=== PATIENT | female | born 1980 | race Caucasian/White ===

== ENCOUNTER 2017-09-12 11:20 | Day surgery (SDC) | payer OTHER, SELFPAY ==
[2017-09-12] VITALS (9 sets, daily range): BP systolic 102–122; BP diastolic 50–89; PULSE 60–93; RESP 16–18; TEMP 36.1–37.2; O2SAT 95–100; BMI 28.3
--- NOTE | 2017-09-12 | POC_PTH ---
PATIENT: YOLANDE GOMES LOC: [facility] – [place] U#:[id number] AGE/SX: 36/F ROOM: RE09/12/[address]: Dr. Arnold Okeefe MD : 1980 BED: DIS: 09/12/2017 SPEC #: [id number] RECD: 09/12/17 14:41 STATUS: ANNALEE REQ #: [id number] LINDA: 09/12/17 00:[address]: Arnold Okeefe DEPT: SURGICAL PATHOLOGY RECD BY: Lai Levy ENTERED: 09/12/17 14:41 SP TYPE: PROD CONC OTHR DR: Kimberly Kumari PA-C Tissues: Product of conception, NOS Procedures: Surgery Specimen Level IV HEADER OPERATION: Dilation and curettage, suction PRE-OP DIAGNOSIS: Inevitable miscarriage TISSUE SUBMITTED: Products of conception MICROSCOPIC DIAGNOSIS Products of conception: [place]id[place], gestational endometrium and immature chorionic villi (products of conception). SJ:nayan 09/15/17 MICROSCOPIC DESCRIPTION Slides are reviewed. GROSS DESCRIPTION Received in fixative is one container labeled with the patient's name and designated products of conception. The specimen consists of multiple pieces of tee-pink soft tissue that in aggregate measure 4.5 x 5 x 2 cm. tissue is not identified. [employer] And Shoe Laborer tissue is submitted in two cassettes. / ADRIANA:nayan 09/12/17 TC:5 CPT: 77292
[2017-09-12 12:27] LABS: Hematocrit 41.4 % (37-47); Hemoglobin 14.3 g/dl (12.0-15.0); Mean Corp Hgb Conc 34.5 g/gl (32-36); Mean Corpuscular Hgb 31.2 pg (27.0-32.0); Mean Corpuscular Volume 90.2 fL (81-99); Mean Platelet Vol. 9.7 fl (6.2-12.0); Platelet Count 264 K/mm3 (150-450); RBC Distribution Width CV 12.5 % (11.6-14.6); RBC Distribution Width SD 41.1 fl (35.1-43.9); Red Blood Count 4.59 M/mm3 (4.2-5.4); Scan Indicated on CBC? Y/N NO
--- NOTE | 2017-09-12 12:53 | PCM.OP.BLANK ---
Operative Report Date of Procedure: 09/12/17 Pre/Post-op: Incomplete Miscarriage Surgeon: Arnold Okeefe MD, FACOG Anesthesia: Laquita Woodall CRNA Type of anesthesia: MAC Procedure: Suction Dilation and Evacuation Findings: 10-12 cm EM cavity with POC Indication: 36 Year patient with incomplete AB at 11 weeks gestation with an 8 week IUP without FHTs. Pt has been counseled re RBAs and all questions answered. Procedure: Pt taken to the OR where she was given IV sedation. The patient was prepped and draped in the usual sterile fashion. Anterior cervix grasped and cervix dilated to 10mm. An 9 mm suction curette was inserted into the cervix and all contents removed. Uterus was gently curetted and remaining tissue removed. Pt tolerated the procedure well and was taken to the recovery room in satisfactory condition. Sponge, instruments and needle counts were all correct. There were no apparent complications of the surgery. To Pathology: POC EBL Minimal.
[2017-09-12] MEDS: Lubricating Jelly 60 GM Tube 30 GM TOPICAL (12:56)
--- NOTE | 2017-09-12 12:56 | DCINST_ITS ---
Discharge Diet: No Restrictions Discharge Activity: Return to Normal Activity, May Shower, May Take a Tub Bath May resume sexual activity in: 1-2 weeks Call your doctor if you observe: Fever of 101 or Higher, Inability to urinate, Inability to have a bowel movement, Using more than one pad per hour Allergies/Adverse Reactions: Allergies Penicillins Allergy (Verified 07/22/16 12:43) Anaphylaxis Medications to take at Discharge Metformin(XR) [Glucophage Xr] 1,000 mg PO BID 07/22/16 Primary Care Physician: Kimberly Kumari PA-C [Primary Care Provider] - Test Results: Test results from this visit will be discussed in further detail at your follow- up appointment, if applicable. Please Follow Up With: Arnold Okeefe MD When: 4-5 weeks
== END 2017-09-12 15:42 | disposition home or self-care (01) ==
LOC: SDC 11:26 → AC 11:34
PROVIDERS: Family Provider Family Medicine; PCP Family Medicine; Visit Provider Obstetrics & Gynecology
PROC: (CPT 59812; principal; 2017-09-12 11:00)
DX: O03.4 Incomplete spontaneous abortion without complication (principal); Z79.84 Long term (current) use of oral hypoglycemic drugs
CPT/HCPCS: 01965; 59812; 85027; 86850; 86900; 88305; J7120

== ENCOUNTER → 2019-05-07 | Outpatient (CLI) | payer BC, SELFPAY ==
[2017-09-12 12:08] VITALS: BMI 28.3
[2019-05-07 13:19] LABS: Internal QC Validated? YES +Cl - CLEAR BKGD; Pregnancy, Serum, hCG Quali. NEGATIVE Negative
== END | disposition home or self-care (01) ==
LOC: WOBLAB 11:23
PROVIDERS: PCP Family Medicine; Visit Provider Obstetrics & Gynecology
DX: N97.0 Female infertility associated with anovulation (principal)
CPT/HCPCS: 36415; 84703

== ENCOUNTER 2019-07-20 11:43 | Outpatient (RCR) | payer BC, SELFPAY ==
[2017-09-12 12:08] VITALS: BMI 28.3
[2019-07-20 13:29] LABS: Progesterone Level 0.35 ng/mL (See Comment)
[2019-07-20 13:32] LABS: Prolactin 4.8 ng/mL
== END 2019-07-20 18:00 ==
LOC: LAB 11:43
PROVIDERS: PCP Family Medicine; Referring Provider Obstetrics & Gynecology; Visit Provider Obstetrics & Gynecology
DX: N94.6 Dysmenorrhea, unspecified (principal); N92.6 Irregular menstruation, unspecified; E28.2 Polycystic ovarian syndrome
CPT/HCPCS: 36415; 84144; 84146

== ENCOUNTER → 2019-09-03 | Outpatient (CLI) | payer BC, SELFPAY ==
[2017-09-12 12:08] VITALS: BMI 28.3
[2019-09-09 01:53] LABS: HPV Reflexed? NOT INDICATED
== END | disposition home or self-care (01) ==
LOC: LABSPEC 10:00
PROVIDERS: PCP Family Medicine; Visit Provider Obstetrics & Gynecology
DX: Z12.4 Encounter for screening for malignant neoplasm of cervix (principal)
CPT/HCPCS: 88175; G0145

== ENCOUNTER → 2019-09-06 | Outpatient (CLI) | payer BC, SELFPAY ==
[2017-09-12 12:08] VITALS: BMI 28.3
[2019-09-06 13:35] LABS: Progesterone Level 0.65 ng/mL (See Comment)
== END | disposition home or self-care (01) ==
PROVIDERS: PCP Family Medicine; Referring Provider Obstetrics & Gynecology; Visit Provider Obstetrics & Gynecology
DX: N97.0 Female infertility associated with anovulation (principal)
CPT/HCPCS: 36415; 84144

== ENCOUNTER → 2020-06-07 09:01 | Outpatient (CLI) | payer OTHER, SELFPAY ==
[2017-09-12 12:08] VITALS: BMI 28.3
[2020-06-07 10:32] LABS: Hemoglobin A1c 4.9 % (3.8-5.6)
[2020-06-07 10:34] LABS: ALB/GLOB Ratio 1.1 RATIO (0.9-2.4); AST(SGOT) 15 U/L (15-37); Alanine Aminotransfer ALT/SGPT 20 U/L (13-56); Albumin, Serum 3.9 g/dL (3.2-5.0); Alkaline Phosphatase 72 U/L (45-117); Anion Gap 6 (5-15); BUN 12 mg/dL (7-18); BUN/Creat Ratio 15.6 RATIO (10-20); Calcium,Total 8.8 mg/dL (8.5-10.1); Chloride 105 mmol/L (98-107); Cholesterol 202 mg/dL (200); Creatinine, Serum 0.77 mg/dL (0.55-1.02); EST Glomerular Filtration Rate 88 mL/min (>60); Est Glom Filt Rate - Afr Amer 106 mL/min (>60); Globulin 3.5 g/dL (2.2-4.2); Glucose 95 mg/dL (74-106); High Density Lipoprotein 55 mg/dL; Potassium 4.2 mmol/L (3.5-5.1); Protein, Total 7.4 g/dL (6.4-8.2); Sodium Level 137 mmol/L (136-145); Triglycerides 145 mg/dL; Very Low Density Lipoprotein 29 mg/dL (5-40)
== END ==
PROVIDERS: PCP Family Medicine; Referring Provider Family Medicine; Visit Provider Family Medicine
DX: E28.2 Polycystic ovarian syndrome (principal); Z13.220 Encounter for screening for lipoid disorders
CPT/HCPCS: 36415; 80053; 80061; 83036

== ENCOUNTER → 2020-07-20 06:55 | Outpatient (CLI) | payer OTHER, SELFPAY ==
--- NOTE | 2020-07-20 06:57 | BI_ITS ---
MAMMOGRAPHY - BILATERAL SCREENING REASON FOR EXAM: Female, 39 years old. Routine annual screening examination. PERTINENT HISTORY: Non-contributory. TECHNIQUE: Digital bilateral breast constantin (3D mammographic acquisition) in the CC and MLO projections. 2-D mediolateral oblique (MLO) and craniocaudad (CC) views of both breasts were obtained. CAD: Full Field Digital Mammography with Computer Added Detection was performed. COMPARISON: None. Baseline examination. FINDINGS: Breast Composition: There are scattered areas of fibroglandular density. There are no dominant masses or suspicious calcifications. Small benign-appearing axillary lymph nodes. No other significant abnormalities are identified. BI/SCRN MAMM (CAD)W/CONSTANTIN BILAT IMPRESSION: Negative screening mammogram. Yearly followup mammogram recommended. (A) ASSESSMENT CATEGORY: BIRADS Category 2: Benign. A letter regarding these results will be sent to the patient by the facility within 30 days. Approximately 10% of breast cancers are not detected by mammography. A normal mammogram should not delay biopsy of a clinically suspicious abnormality. [id number] Electronically Signed: Lazaro Romero MD at 8:25 EDT , Service support ,
== END ==
PROVIDERS: PCP Family Medicine; Referring Provider Family Medicine; Visit Provider Family Medicine
DX: Z12.31 Encounter for screening mammogram for malignant neoplasm of breast (principal)
CPT/HCPCS: 77063; 77067

== ENCOUNTER → 2020-11-02 14:10 | Outpatient (CLI) | payer OTHER, SELFPAY ==
[2020-11-02 17:01] LABS: hCG Titer Quant., Serum 15315 mIU/mL (1-3)
== END ==
PROVIDERS: PCP Family Medicine; Visit Provider Obstetrics & Gynecology
DX: Z32.01 Encounter for pregnancy test, result positive (principal); Z87.59 Personal history of other complications of pregnancy, childbirth and the puerperium
CPT/HCPCS: 36415; 84702

== ENCOUNTER → 2020-11-04 11:38 | Outpatient (CLI) | payer OTHER, SELFPAY ==
[2020-11-04 12:36] LABS: hCG Titer Quant., Serum 21837 mIU/mL (1-3)
== END ==
PROVIDERS: PCP Family Medicine; Referring Provider Obstetrics & Gynecology; Visit Provider Obstetrics & Gynecology
DX: Z32.01 Encounter for pregnancy test, result positive (principal); Z87.59 Personal history of other complications of pregnancy, childbirth and the puerperium
CPT/HCPCS: 36415; 84702

== ENCOUNTER 2020-11-05 01:37 | Emergency (ER) | payer OTHER, SELFPAY ==
[2020-11-05 01:38] VITALS: BP 112/70; PULSE 92; RESP 16; TEMP 36.7; O2SAT 99; BMI 31.1
--- NOTE | 2020-11-05 02:17 | US_ITS ---
STUDY: FIRST TRIMESTER OBSTETRICAL ULTRASOUND REASON FOR EXAM: Female, 39 years old vagianl bleeding with LLQ pain LMP: 09/14/2020 TECHNIQUE: Transvaginal TECHNICAL QUALITY: Limited. Examination limited by bowel gas. PRIOR ULTRASOUND: None. FINDINGS: There is visualization of a single gestational sac in a normal intrauterine position. The mean sac diameter (MSD) measures 1.3 cm, indicating an estimated gestational age (EGA) of 6 weeks, 0 days. The gestational sac shape is within normal limits. There is no demonstrated yolk sac. The placenta is non-visualized. There is no demonstrated embryo ( pole). The estimated gestation age (EGA) by LMP is 7 weeks, 3 days. The estimated date of delivery (THERESE) by LMP is 06/21/2021. The estimated gestation age (EGA) by US is 6 weeks, 0 days. The estimated date of delivery (THERESE) by US is 07/01/2021. The uterus measures 9.7 x 6.9 x 4.6 cm. There is no demonstrated uterine fibroid. The cervix is closed. The right ovary measures 5.7 x 3.9 x 3.6 cm. Complex right ovarian cyst measuring 3 x 3.7 x 2.4 cm. There is no visualized right adnexal mass or complex lesion. The left ovary measures 3 x 2.5 x 2 cm. There is no left ovarian cyst. There is no visualized left adnexal mass or complex lesion. There is minimal fluid in the cul de sac. US/Transvaginal w/Preg US IMPRESSION: Intrauterine gestational sac is noted however, no evidence of pole. Unusual given size of gestational sac. Suspicious for a blighted ovum. Comment right ovarian cyst which is likely including corpus luteal cyst/hemorrhagic cyst. Recommend correlation with quantitative beta hCG and consider follow-up imaging as clinically indicated. Electronically Signed: Ricci Sigala DO at 3:53 EDT Tel , Service support ,
[2020-11-05 02:44] LABS: Absolute Lymphocyte Count 2.22 X10^3/uL (0.83-4.51); Absolute Neutrophil Count 4.3 X10^3/uL (2.0-7.7); Basophil# 0.04 X10^3/uL; Basophil% 0.5 % (0-1); Eosinophil# 0.23 X10^3/uL; Eosinophils% 3.2 % (0-5); Hematocrit 40.8 % (37-47); Hemoglobin 13.2 g/dL (12.0-15.0); Lymphocyte # 2.22 X10^3/ul (0.83-4.51); Lymphocyte % 30.5 % (19-41); Mean Corp Hgb Conc 32.4 g/dL (32-36); Mean Corpuscular Hgb 30.6 pg (27.0-32.0); Mean Corpuscular Volume 94.4 fL (81-99); Mean Platelet Vol. 9.9 fl (6.2-12.0); Monocyte# 0.46 X10^3/uL; Monocyte% 6.3 % (0-10); NRBC Flagged by Analyzer 0 % (0-5); Neutrophil # 4.31 X10^3/uL (2.7-7.7); Neutrophil % 59.1 % (47-70); Platelet Count 278 K/mm3 (150-450); RBC Distribution Width CV 12.4 % (11.6-14.6); RBC Distribution Width SD 43.3 fl (35.1-43.9); Red Blood Count 4.32 M/mm3 (4.2-5.4); White Blood Count 7.3 K/mm3 (4.4-11.0)
[2020-11-05 03:09] LABS: hCG Titer Quant., Serum 19970 mIU/mL (1-3)
[2020-11-05 04:26] VITALS: BP 106/74; RESP 16
--- NOTE | 2020-11-05 04:41 | ED.VIS.FEGU ---
HPI HPI - Female History of Present Illness Chief Complaint: Vag Bld, Preg Narrative Narrative: Patient is a 39-year-old female with 1 spontaneous miscarriage. She states she believes she is approximately 7 to 8 weeks based on her last menstrual cycle. She states she was recently diagnosed with a urinary tract infection is currently on Bactrim. She reports that she noticed some vaginal spotting yesterday but not think much of it. She states today after using the restroom she had increased pain in the left lower quadrant with passage of clots. With concern for miscarriage she presents to the ER for evaluation. [facility] Medical History Anxiety Depression History of miscarriage PCOS (polycystic ovarian syndrome) Home Medications fluoxetine 20 mg tablet 40 mg PO DAILY 04/02/20 [History Last Taken Unknown] vit 95-[id number]-[id number]-dha [ + DHA] 1 pkg PO DAILY 11/05/20 [History Last Taken Unknown] sulfamethoxazole-trimethoprim 1 tab PO BID 11/05/20 [History Last Taken Unknown] Allergy/AdvReac Type Severity Reaction Status Date / Time Penicillins Allergy Anaphylaxis Verified 11/05/20 01:38 Social History (Updated 04/02/20 @ 10:00 by Nedra CERVANTES, PA) Smoking Status: Never smoker ROS ROS ED Constitutional Constitutional ED: Denies chills or fever(s) ENT ENT ED: Denies sore throat Cardiovascular Cardiovascular: Denies chest pain Respiratory/Chest Respiratory/Chest: Denies cough or dyspnea Gastrointestinal Gastrointestinal: Reports abdominal pain; Denies diarrhea, nausea or vomiting Genitourinary Genitourinary ED: Reports other Details: Positive vaginal bleeding ; Denies dysuria Musculoskeletal Musculoskeletal: Denies myalgias Integumentary Denies rash Neurologic Neurologic: Denies headache(s) Hematologic/Lymphatic Hematologic/Lymphatic: Denies easy bleeding or easy bruising EXAM Physical Exam Const Vital Signs: 11/05/20 01:38 11/05/20 04:26 Temperature 98.1 F Temperature Source Oral Pulse Rate 92 Respiratory Rate 16 16 Blood Pressure 112/70 106/74 Blood Pressure Mean 84 84 Pulse Ox 99 Oxygen Delivery Method Room Air Positive well nourished and well developed General Appearance ED: well developed HEENT Negative for trauma Eyes PERRL and EOMs intact bilaterally Neck supple Resp normal respiratory effort and clear to auscultation bilaterally Cardio regular rate and regular rhythm GI normal to inspection, nondistended, normoactive bowel sounds, soft to palpation and non-distended GI Narrative: Patient does have pain on palpation in the left lower quadrant without rigidity or pulsatile mass Auscultation: normoactive bowel sounds Palpation: soft no CVA tenderness Extremity normal to inspection Neuro oriented x3 and CN's II-XII intact bilaterally Sensorium / Orientation: alert Psych mental status grossly normal Skin no rashes or lesions noted MDM MDM MDM Narrative Medical decision making narrative: Patient presented to the ER with stable vitals. She reported she was in her first trimester and now had abdominal pain with passage of clots. With concern for spontaneous miscarriage versus an ectopic I did elect to perform an ultrasound and basic lab. Patient is white count and H&H are stable. Her quantitative hCG level has decreased by about 2000 points since her last value. I elected not to perform a urine sample as she is currently on Bactrim for UTI. The ultrasound showed a yolk sac but no pole or heartbeat. Based on the patient being 6 to 8 weeks and her hCG value of 20,000 these changes should be present on ultrasound. Therefore I feel this indicates that patient is undergoing a spontaneous once again. However as she is not requiring a blood transfusion from this or showing signs of secondary infection she does not need to be placed in the hospital or have IVORY POLISHER consult emergently. As patient's blood type is O+ she does not need RhoGam either . The patient was advised to contact her IVORY POLISHER Friday and she will most likely have repeat labs and ultrasound in the coming week to confirm completion of a spontaneous miscarriage. Lab Data Labs: Laboratory Results - last 24 hr 11/05/20 11/05/20 11/05/20 01:50 01:50 01:50 WBC 7.3 RBC 4.32 Hgb 13.2 Hct 40.8 MCV 94.4 MCH 30.6 MCHC 32.4 RDW Std Deviation 43.3 RDW Coeff of Marcos 12.4 Plt Count 278 MPV 9.9 Immature Gran % (Auto) 0.400 Neut % (Auto) 59.1 Lymph % (Auto) 30.5 [place] % (Auto) 6.3 Eos % (Auto) 3.2 Baso % (Auto) 0.5 Absolute Neuts (auto) 4.3 Absolute Lymphs (auto) 2.22 Nucleated RBC % 0 HCG, Quant 39592 H Blood Type O POSITIVE Radiography Diagnostic Testing: Radiology Impression Obstetrics Ultrasound 11/05/20 02:17 IMPRESSION: Intrauterine gestational sac is noted however, no evidence of pole. Unusual given size of gestational sac. Suspicious for a blighted ovum. Comment right ovarian cyst which is likely including corpus luteal cyst/hemorrhagic cyst. Recommend correlation with quantitative beta hCG and consider follow-up imaging as clinically indicated. Electronically Signed: Ricci Sigala DO at 3:53 EDT Tel , Service support , Discharge Plan Triage Chief Complaint: Vag Bld, Preg ED Provider: Ren Subramanian Dx/Rx/DC Orders Clinical Impression: Vaginal bleeding during Instructions: Bleeding During Early , ED Possible Miscarriage ... Prescriptions: No Action fluoxetine 20 mg tablet 40 mg PO DAILY RF: 0 sulfamethoxazole-trimethoprim 800-160 mg tablet 1 tab PO BID RF: 0 + DHA 28 mg iron- 975 mcg-200 mg Combo Pack 1 pkg PO DAILY RF: 0 Primary Care Provider: Kimberly Kumari Referrals: Arnold Okeefe MD [STAFF PHYSICIAN] - 3-5 Days Kimberly Kumari PAShahabC [Primary Care Provider] - Disposition Disposition: Home, Self Care
[2020-11-05] MEDS: oxyCODONE 5 MG Tablet PO (05:10)
== END 2020-11-05 05:29 | disposition home or self-care (01) ==
PROVIDERS: Emergency Provider Emergency Medicine; PCP Family Medicine
DX: O20.9 Hemorrhage in early pregnancy, unspecified (principal); O23.41 Unspecified infection of urinary tract in pregnancy, first trimester; Z3A.01 Less than 8 weeks gestation of pregnancy; Z79.2 Long term (current) use of antibiotics
CPT/HCPCS: 76817; 84702; 85025; 86900; 86901; 99283; A4216

== ENCOUNTER 2020-11-17 09:48 | Day surgery (SDC) | payer OTHER, SELFPAY ==
[2020-11-17] VITALS (7 sets, daily range): BP systolic 99–112; BP diastolic 70–74; PULSE 61–86; RESP 18; TEMP 36.4–36.9; O2SAT 98–100; BMI 30.6
--- NOTE | 2020-11-17 | UTC_PTH ---
PATIENT: YOLANDE GOMES LOC: [facility] [place] U#:[id number] AGE/SX: 40/F ROOM: RE11/17/[address]: Dr. Arnold Okeefe MD : 1980 BED: DIS: 11/17/2020 SPEC #: [id number] RECD: 11/17/20 15:11 STATUS: ANNALEE [place] #: [id number] LINDA: 11/17/20 00:[address]: Arnold Okeefe DEPT: SURGICAL PATHOLOGY RECD BY: Lai Levy ENTERED: 11/20/20 12:00 SP TYPE: ROSALBA OTERO DR: Kimberly Kumari PA-C Tissues: Uterine cervix, NOS Procedures: Surgery Specimen Level IV HEADER OPERATION: Suction dilation and curettage PRE-OP DIAGNOSIS: Spontaneous , incomplete TISSUE SUBMITTED: Uterine contents MICROSCOPIC DIAGNOSIS Endometrium, curettage: Chorionic villi, decidualized stroma and trophoblastic cells consistent with products of conception. AM:nayan 11/21/2020 MICROSCOPIC DESCRIPTION Slides are reviewed. GROSS DESCRIPTION Received in fixative is one container labeled with the patient's name and designated uterine curettings. The specimen consists of multiple irregular fragments of light to dark tee soft tissue that in aggregate measure 2.5 x 3 x 0.2 cm. The specimen is totally submitted in three cassettes. / AM:nayan 11/20/20 TC:5 CPT: 99738
--- NOTE | 2020-11-17 08:55 | HP.PCM_ITS ---
History and Physical Date of Admission: 11/17/20 Surgical History and Physical Laura Ivy, a 40 year old female 0 0 1 0 0, presents for Suction D and E on at . -- Inevitable Miscarriage -- Patient is approximately 8 to 9 weeks gestation with a 6-week pole present without FHTs. No change from last week's ultrasound to this weeks ultrasound. MEDICATIONS HISTORY: Current medications prescribed by our practice are: 1. Femara 2.5 mg tablet, Take two pills by mouth cycle days 3 through 7 2. Prometrium 200 mg capsule, One pill by mouth once a day at hs Patient is also takin. fluoxetine 20 mg tablet, One pill by mouth once a day 2. metformin 1,000 mg tablet, One pill by mouth twice a day ALLERGIES: Penicillin, Penicillins and Facial swelling Infections - Chicken pox Illnesses - Bipolar Disorder Accidents - no injuries of consequence Hospitalizations - None PCOS; Review of Systems: GENERAL - Denies fever, or chills SKIN - Denies skin changes EYES - wears eye glasses and wears contact lenses EARS - Denies difficulty hearing NOSE - Denies nasal congestion or bleeding MOUTH - Denies sore throat or difficulty swallowing NECK - Denies pain or swelling RESPIRATORY - Denies shortness of breath or wheezing CARDIOVASCULAR - Denies palpitations or chest pain GASTROINTESTINAL - Denies nausea, vomiting, diarrhea, constipation GENITOURINARY - Denies dysuria, frequency of urination, incontinence of urine MUSCULOSKELETAL - Denies joint or muscle pain NEUROLOGICAL - Denies localized numbness or weakness PSYCHIATRIC - Denies depression or anxiety ENDOCRINE - Denies heat or cold intolerance, weight loss or gain HEMATO-IMMUNOLOGIC - Denies excesive bleeding with cuts SOCIAL HISTORY: Alcohol Use - denies drinking Smoking - denies smoking Diet - balanced Diet Lifestyle - moderate stress lifestyle and single Exercise - minimal and Walking Seat Belt Use - always 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 MENSTRUAL HISTORY: LMP Known?- DefiniteAmount/Duration - 6 days, Regularity - regular, Frequency - every 40 days days, LMP - 09/14/20, Age Onset Menarche - 7 PAST PREGNANCIES: Total Pregnancies - 2; Full Term Pregnancies - 0; Premature - 0; Abortions, Induced - 0; Abortions, Spontaneous - 1; Ectopics - 0; Multiple Births - 0; Living Children - 0 SURGICAL HISTORY: 1. Tonsilectomy, 88' ; - 2. 09/12/2017 suction D and C ; Arnold Okeefe M.D. - PHYSICAL EXAM BP- 150/84 Sitting, Right arm, large cuff Weight- 168.69353 lbs Height- 62.5 inch BMI:30.4 CONSTITUTIONAL - NAD, well nourished, and well developed SKIN - No rash, lesions, or ulcers HEENT - Normocephalic, PERRLA, EOMI NECK - No nodes, no nuchal rigidity and thyroid normal size and texture LYMPH NODES - Palpation of lymph nodes in neck and groins within normal limits LUNGS - CTA x2 without wheezes, crackles or rales CARDIAC - Regular rate and rhythm without rubs, murmurs, or gallops ABDOMEN - Without hepatosplenomegaly, distention, masses, rebound, or guarding; normal bowel sounds; no hernias EXTREMITIES - No edema or calf tenderness NEUROLOGICAL - Cranial nerves II-XII grossly intact PSYCHIATRIC - A and O to time, place, person, mood and affect External Genitial Vagina - non-tender without lesions Urethra/Urethral Meatus - non-tender Bladder - non-tender Vagina - vaginal pereira are pink and moist without loss of rugae and no evidence of atropy Cervix - without cervical motion tenderness and has normal size and features without evident lesions Uterus - multiparous size 6 cm & wt 75-125 g Adnexa - clear without massess or tenderness ASSESSMENT/PLAN: 1. Spontaneous , Incomplete, Without Mention Of Complication Inevitable miscarriage at 8 with 6 week IUP without FHTs. Discussed options for management and pt desires we proceed with Suction D and E. Discuss ed RBAs and all questions answered.
[2020-11-17] MEDS: Lactated Ringers 1,000 ML 100 ML IV (10:35)
[2020-11-17 10:48] LABS: Hemoglobin 13.2 g/dL (12.0-15.0); Mean Corpuscular Hgb 30.7 pg (27.0-32.0); Mean Platelet Vol. 9.5 fl (6.2-12.0); Platelet Count 273 K/mm3 (150-450); RBC Distribution Width CV 12.5 % (11.6-14.6); RBC Distribution Width SD 42.7 fl (35.1-43.9); White Blood Count 7.2 K/mm3 (4.4-11.0)
--- NOTE | 2020-11-17 12:21 | PCM.OPRPT ---
Report of Operation Date of Procedure: 11/17/20 Pre-Operative Diagnosis: Inevitable Miscarriage Post-Operative Diagnosis: Inevitable Miscarriage Surgery/Procedure Performed:: Suction Dilation and Evacuation Description of Surgical Findings:: 8 cm endometrial cavity with products of conception present. Surgeon: Arnold Okeefe Type of Anesthesia: MAC Specimen's removed: Products of conception Estimated Blood Loss (mL): Minimal Fluids Replaced: Crystalloid Description of Procedure: Surgeon: Arnold Okeefe MD, FACOG Indication: 40 year old patient with incomplete AB at 8-9 weeks gestation with a 6 week IUP without FHTs. Pt has been counseled regarding the risks, benefits, and alternatives of this procedure and all questions were answered. Procedure: Patient was taken to the operating room where she was given IV sedation. The patient was prepped and draped in the usual sterile fashion. The anterior cervix was grasped with a tenaculum and cervix was dilated. An 8 mm suction curette was inserted into the cervix and all contents removed. Uterus was gently curetted and remaining tissue was removed by reinserting the suction curette. The patient tolerated the procedure well and was taken to the recovery room in satisfactory condition. Sponge, instruments and needle counts were all correct. There were no apparent complications of the surgery. Complications None Admit VTE Documentation VTE Present on Admission: Yes VTE Mechan Device Prophylaxis: SCD's
--- NOTE | 2020-11-17 12:24 | PCM.DC ---
Discharge Instructions Diet Discharge Diet: No restrictions Activity Discharge Activity: Return to Normal Activity, May Shower and May Take a Tub Bath May resume sexual activity in: 1-2 weeks Additional Activity Instructions:: Nothing in vagina for 1 to 2 weeks. Okay the use ibuprofen or Tylenol per package directions for any cramping you may have over the next few days. Call if bleeding more than 1 pad per hour. Dressing / Incision Call your doctor if you observe: Fever of 101 or Higher, Inability to urinate and Inability to have a bowel movement Follow Up Care Please Follow Up With: Arnold Okeefe MD When: 2 to 3 weeks Test Results: Test results from this visit will be discussed in further detail at your follow-up appointment, if applicable. Discharge Plan Admission Primary Reason for Your Visit: D and C Attending Provider: Arnold Okeefe Primary Care Provider: Kimberly Kumari Discharge Orders/Prescriptions Prescriptions: No Action fluoxetine 20 mg tablet 40 mg PO DAILY RF: 0 + DHA 28 mg iron- 975 mcg-200 mg Combo Pack 1 pkg PO DAILY RF: 0 Referrals / Follow Up: Kimberly Kumari, PA-C [Primary Care Provider] - Disposition Disposition (needs filled in before D/C Order can be placed): Home, Self Care
== END 2020-11-17 14:20 | disposition home or self-care (01) ==
LOC: SDC 09:49 → AC 09:50
PROVIDERS: PCP Family Medicine; Visit Provider Obstetrics & Gynecology
PROC: (CPT 59812; principal; 2020-11-17 11:45)
DX: O03.4 Incomplete spontaneous abortion without complication (principal); F31.9 Bipolar disorder, unspecified; F41.9 Anxiety disorder, unspecified; E28.2 Polycystic ovarian syndrome; Z79.84 Long term (current) use of oral hypoglycemic drugs; Z79.899 Other long term (current) drug therapy
CPT/HCPCS: 01965; 59812; 85027; 86850; 86900; 86901; 88305; J7120; J2405

== ENCOUNTER 2020-12-09 12:10 | Emergency (ER) | payer OTHER, SELFPAY ==
[2020-12-09 12:11] VITALS: BP 131/94; PULSE 93; RESP 18; TEMP 36; O2SAT 97; BMI 31.1
--- NOTE | 2020-12-09 12:45 | EKG12_ITS ---
Test Reason : ABD PAIN Blood Pressure : / mmHG Vent. Rate : 065 BPM Atrial Rate : 065 BPM P-R Int : 152 ms QRS Dur : 072 ms QT Int : 410 ms P-R-T Axes : 066 078 070 degrees QTc Int : 426 ms Normal sinus rhythm Septal infarct , age undetermined Abnormal ECG Confirmed by MARIA DE JESUS LIVINGSTON, ALBERTO ([id number]), website/blog editor PAPI BRIGGS ([id number]) on 12/12/2020 8:46:30 AM Referred By: TYLER Confirmed By:ALBERTO PRETTY MD
--- NOTE | 2020-12-09 12:46 | EDS_ITS ---
HPI HPI - GI History of Present Illness Chief Complaint: Abd Pain Narrative Narrative: Patient presents with abdominal pain and burning in the epigastric area, radiating upward. She states that 3 weeks ago she had to have a D&C. She was having epigastric burning and GERD-like symptoms for the last few weeks. However, she states that when she was at work today it became very intense. She describes burning sensation in the epigastrium associated with nausea and lightheadedness. She denies any chest pain. No vomiting. No diaphoresis. She has not had any problems with urination. [facility] Medical History Anxiety Depression History of miscarriage PCOS (polycystic ovarian syndrome) Home Medications fluoxetine 20 mg tablet 40 mg PO DAILY 04/02/20 [History Last Taken 11/16/20 09:00] vit [id number] [ + DHA] 1 pkg PO DAILY 11/05/20 [History Last Taken 11/16/20 09:00] Allergy/AdvReac Type Severity Reaction Status Date / Time Penicillins Allergy Anaphylaxis Verified 12/09/20 12:11 Social History (Updated 04/02/20 @ 10:00 by Nedra CERVANTES, PA) Smoking Status: Never smoker ROS ROS ED ROS Narrative Constitutional: No fever, no chills. HEENT: No sore throat. No neck pain. No loss of vision. No rhinorrhea. Cardiovascular: No chest pain. No palpitations. No pedal edema. Respiratory: No cough, no shortness of breath. Abdominal: No abdominal pain. Positive nausea. No vomiting. Epigastric burning with mild radiation upward. Genitourinary: No dysuria. No hematuria. Musculoskeletal: No myalgias. No arthralgias. Neurologic: No headaches. No dizziness. Positive lightheadedness. Skin: No rash. No change in color. Psychiatric: No depression. No anxiety. EXAM Physical Exam Narrative Exam Narrative: Afebrile. Vital signs noted. HEENT: Normocephalic. Atraumatic. PERRL, EOMI. Neck soft and supple. No point tenderness or step off. Cardiovascular: Regular rate and rhythm. No murmurs, rubs, or gallops ap preciated. Respiratory: No tachypnea. Lungs clear to auscultation bilaterally. Gastrointestinal: Abdomen soft, nontender, with normoactive bowel sounds. No rebound or guarding. Neurological: Awake. Alert. Nonfocal, nonlateralizing. Skin: No rash. Normal color. No pallor. Musculoskeletal: No pedal edema. Full range of motion extremities. Const Vital Signs: 12/09/20 12:11 12/09/20 15:21 Temperature 96.8 F L Temperature Source Temporal Pulse Rate 93 79 Respiratory Rate 18 16 Blood Pressure 131/94 H 118/78 Blood Pressure Mean 106 91 Pulse Ox 97 99 Oxygen Delivery Method Room Air MDM MDM MDM Narrative Medical decision making narrative: EKG demonstrates normal sinus rhythm at 65 bpm without ectopy or acute ST changes. She was administered a GI cocktail and Zofran. She is feeling improved. She has normal white count and stable hemoglobin of 13.9. Lipase is slightly low at 70, troponin negative. Upon repeat examination, she is resting comfortably using her telephone. At this point in time, I feel she be discharged safely home with follow-up to her primary care physician for possible gastroenterology referral. Think she may have more of a gastritis from NSAID use. She will be given prescriptions for Zofran and for Pepcid. Return instructions to the emergency department were reviewed. Disposition is discharged home in stable condition. Lab Data Labs: Laboratory Results - last 24 hr 12/09/20 12/09/20 13:05 13:05 WBC 6.2 RBC 4.48 Hgb 13.9 Hct 40.9 MCV 91.3 MCH 31.0 MCHC 34.0 RDW Std Deviation 40.7 RDW Coeff of Marcos 12.2 Plt Count 292 MPV 9.2 Immature Gran % (Auto) 0.300 Neut % (Auto) 50.4 Lymph % (Auto) 39.5 Sterling % (Auto) 7.0 Eos % (Auto) 2.3 Baso % (Auto) 0.5 Absolute Neuts (auto) 3.1 Absolute Lymphs (auto) 2.43 Nucleated RBC % 0 Sodium 137 Potassium 3.9 Chloride 104 Carbon Dioxide 27.0 Anion Gap 6 BUN 13 Creatinine 0.73 Estim Creat Clear Calc 79.40 Est GFR (MDRD) Af Amer 112 Est GFR (MDRD) Non-Af 93 BUN/Creatinine Ratio 17.7 Glucose 90 Calcium 9.3 Total Bilirubin 0.70 AST 19 ALT 17 Alkaline Phosphatase 67 Troponin I High Sens 4 Total Protein 7.1 Albumin 3.8 Globulin 3.3 Albumin/Globulin Ratio 1.2 Lipase 70 L Discharge Plan Triage Chief Complaint: Abd Pain ED Provider: Mehul Perez Dx/Rx/DC Orders Prescriptions: No Action fluoxetine 20 mg tablet 40 mg PO DAILY RF: 0 + DHA 28 mg iron- 975 mcg-200 mg Combo Pack 1 pkg PO DAILY RF: 0 Primary Care Provider: Kimberly Kumari
[2020-12-09] MEDS: Ondansetron 4 MG/2 ML Vial IV (13:11)
[2020-12-09] MEDS: Mag Hydrox/Al Hydrox/Simeth 30 ML UDC PO (13:11)
[2020-12-09 13:18] LABS: Absolute Lymphocyte Count 2.43 X10^3/uL (0.83-4.51); Absolute Neutrophil Count 3.1 X10^3/uL (2.0-7.7); Basophil# 0.03 X10^3/uL; Basophil% 0.5 % (0-1); Eosinophil# 0.14 X10^3/uL; Eosinophils% 2.3 % (0-5); Hematocrit 40.9 % (37-47); Hemoglobin 13.9 g/dL (12.0-15.0); Lymphocyte # 2.43 X10^3/ul (0.83-4.51); Lymphocyte % 39.5 % (19-41); Mean Corpuscular Volume 91.3 fL (81-99); Mean Platelet Vol. 9.2 fl (6.2-12.0); Monocyte# 0.43 X10^3/uL; NRBC Flagged by Analyzer 0 % (0-5); Neutrophil % 50.4 % (47-70); Platelet Count 292 K/mm3 (150-450); RBC Distribution Width CV 12.2 % (11.6-14.6); RBC Distribution Width SD 40.7 fl (35.1-43.9); Red Blood Count 4.48 M/mm3 (4.2-5.4); White Blood Count 6.2 K/mm3 (4.4-11.0)
[2020-12-09 13:38] LABS: ALB/GLOB Ratio 1.2 RATIO (0.9-2.4); AST(SGOT) 19 U/L (15-37); Alanine Aminotransfer ALT/SGPT 17 U/L (13-56); Albumin, Serum 3.8 g/dL (3.2-5.0); Alkaline Phosphatase 67 U/L (45-117); Anion Gap 6 (5-15); BUN 13 mg/dL (7-18); BUN/Creat Ratio 17.7 RATIO (10-20); Calcium,Total 9.3 mg/dL (8.5-10.1); Chloride 104 mmol/L (98-107); Creatinine, Serum 0.73 mg/dL (0.55-1.02); EST Glomerular Filtration Rate 93 mL/min (>60); Est Glom Filt Rate - Afr Amer 112 mL/min (>60); Globulin 3.3 g/dL (2.2-4.2); Glucose 90 mg/dL (74-106); Lipase 70 U/L (73-393); Potassium 3.9 mmol/L (3.5-5.1); Protein, Total 7.1 g/dL (6.4-8.2); Sodium Level 137 mmol/L (136-145); Troponin-I HS 4 pg/mL (3.0-54.0)
[2020-12-09 15:21] VITALS: BP 118/78; PULSE 79; RESP 16; O2SAT 99
[2020-12-09 15:48] VITALS: BP 132/79; PULSE 84; RESP 22; O2SAT 97
--- NOTE | 2020-12-09 15:48 | ED.RN ---
THIS NURSE REVIEWED D/C INSTRUCTIONS WITH PT. PT VERBALIZED UNDERSTANDING OF INSTRUCTIONS. IV D/C. IV CATHETER INTACT. PT TOLERATED WELL. PT DENIES FURTHER NEEDS OR QUESTIONS AT THIS TIME.
== END 2020-12-09 15:49 | disposition home or self-care (01) ==
PROVIDERS: Emergency Provider Emergency Medicine; PCP Family Medicine
DX: R10.13 Epigastric pain (principal); F41.9 Anxiety disorder, unspecified; F32.A Depression, unspecified; Z79.899 Other long term (current) drug therapy
CPT/HCPCS: 80053; 83690; 84484; 85025; 93005; 96374; 99283; A4216; J2405

== ENCOUNTER → 2022-08-23 | Outpatient (CLI) | payer OTHER, SELFPAY ==
[2022-08-29 00:06] LABS: HPV APTIMA, High Risk Negative (Negative)
== END | disposition home or self-care (01) ==
LOC: LABSPEC 10:58
PROVIDERS: PCP Family Medicine; Referring Provider Advanced Practice Midwife; Visit Provider Advanced Practice Midwife
DX: Z12.4 Encounter for screening for malignant neoplasm of cervix (principal)
CPT/HCPCS: 87624; 88175; G0145

== ENCOUNTER → 2023-11-26 | Outpatient (CLI) | payer OTHER, SELFPAY ==
[2023-11-26 13:30] LABS: Estradiol 161.5 pg/mL; Follicle Stimulating Hormone 4.4 mIU/mL
[2023-12-03 13:08] LABS: Testosterone Free 1.4 pg/mL (0.0-4.2); Testosterone, % Free 2.02 % (0.50-2.80); Testosterone, Free 0.32 ng/dL (0.10-0.85); Testosterone, Total 16 ng/dL (4-50)
[2023-12-09 00:07] LABS: 17-Hydroxyprogesterone 45 ng/dL (.)
== END | disposition home or self-care (01) ==
LOC: LAB 12:10
PROVIDERS: PCP Family Medicine; Referring Provider Obstetrics & Gynecology; Visit Provider Obstetrics & Gynecology
DX: N93.9 Abnormal uterine and vaginal bleeding, unspecified (principal)
CPT/HCPCS: 36415; 82627; 82670; 83001; 83498; 84402; 84403; 82626

== ENCOUNTER → 2023-12-12 | Outpatient (CLI) | payer OTHER, SELFPAY ==
--- NOTE | 2023-12-12 13:22 | US_ITS ---
STUDY: ULTRASOUND OF THE FEMALE PELVIS - COMPLETE REASON FOR EXAM: Female, 43 years old. pelvic pain, AUB LMP: November 24, 2023 TECHNIQUE: Transabdominal and Transvaginal TECHNICAL QUALITY: Adequate. COMPARISON: November 05, 2020 FINDINGS: The uterus is anteverted and is in a midline position. The uterus measures 9 x 5.6 x 4.5 cm. Normal uterine cervix. The endometrium measures 5 mm in thickness, and is hyperechoic. There is no demonstrated endometrial mass. There is no demonstrated myometrial mass. I.U.D. - The patient does not have an I.U.D. The right ovary is visualized. The right ovary measures 3.5 x 2.9 x 2.1 cm. There is no right ovarian cyst or ovarian mass. There is no visualized right adnexal mass or complex lesion. There is normal arterial and normal venous vascularity. The left ovary is visualized. The left ovary measures 3.2 x 2.3 x 1.7 cm. There is no left ovarian cyst or ovarian mass. There is no visualized left adnexal mass or complex lesion. There is normal arterial and normal venous vascularity. There is no fluid in the cul-de-sac. Polycystic ovary disease: No. US/Pelvic w/ Transvaginal IMPRESSION: Normal female pelvis. Electronically Signed: Morteza Jj MD at 15:23 EDT ,
--- NOTE | 2023-12-12 14:09 | BI_ITS ---
MAMMOGRAPHY - BILATERAL SCREENING REASON FOR EXAM: Female, 43 years old. Routine annual screening examination. PERTINENT HISTORY: Non-contributory. TECHNIQUE: Digital bilateral breast constantin (3D mammographic acquisition) in the CC and MLO projections. 2-D mediolateral oblique (MLO) and craniocaudad (CC) views of both breasts were obtained. CAD: Full Field Digital Mammography with Computer Added Detection was performed. COMPARISON: Comparison is made with prior study dated July 20, 2020. FINDINGS: Breast Composition: There are scattered areas of fibroglandular density. There are no dominant masses or suspicious calcifications. Stable bilateral fat containing axillary lymph nodes. No other significant abnormalities are identified. There has been no significant change since the prior study. BI/SCRN MAMM (CAD)W/CONSTANTIN BILAT IMPRESSION: Stable bilateral screening mammogram. Yearly follow-up mammogram recommended. (A) ASSESSMENT CATEGORY: BIRADS Category 2: Benign. A letter regarding these results will be sent to the patient by the facility within 30 days. Approximately 10% of breast cancers are not detected by mammography. A normal mammogram should not delay biopsy of a clinically suspicious abnormality. [id number] Electronically Signed: Lazaro Romero MD at 10:51 EDT ,
== END | disposition home or self-care (01) ==
PROVIDERS: PCP Family Medicine; Referring Provider Obstetrics & Gynecology; Visit Provider Obstetrics & Gynecology
DX: Z12.31 Encounter for screening mammogram for malignant neoplasm of breast (principal); R10.2 Pelvic and perineal pain; N93.9 Abnormal uterine and vaginal bleeding, unspecified
CPT/HCPCS: 76830; 76856; 77063; 77067

== ENCOUNTER → 2024-04-13 | Outpatient (CLI) | payer OTHER, SELFPAY ==
--- NOTE | 2024-04-13 12:40 | MRI_ITS ---
PROCEDURE: BREAST BILATERAL W/O AND W REASON FOR EXAM: Bloody nipple discharge. TECHNIQUE: Bilateral breast MRI using a dedicated bilateral breast coil before and following intravenous contrast. Images reviewed with subtraction without DynaCAD. No color maps were performed. CONTRAST: 14 IV Clariscan. COMPARISON: Reviewed. FINDINGS: Amount of Fibroglandular Tissue: Scattered fibroglandular tissue. Background Parenchymal Enhancement: Moderate. This may decrease the sensitivity of breast MRI. RIGHT Breast: Asymmetrically prominent clumped non-mass enhancement in the right breast extending to the base of the nipple spanning approximately 2.3 cm in greatest AP dimension. Additional areas of non-mass enhancement noted posteriorly including suspicious clumped linear non mass enhancement spanning 1.5 cm in the upper outer middle depth. LEFT Breast: No suspicious mass or non-mass enhancement. Other Findings: No suspicious axillary or internal mammary lymph nodes. Visualized portions of the thoracic and abdominal viscera are unremarkable. MRI/Breast Bilateral W/O and W IMPRESSION: Limited exam as color maps were not performed. Scattered indeterminate non-mass enhancement of the right breast; posteriorly l ocated linear non-mass enhancement as well as anteriorly located clumped non-mass enhancement. Given clinical symptoms, MR romo uiita core biopsy of the more anterior clumped non-mass enhancement is advised. Management of the posterior non mass enhancem ent will depend upon biopsy results. OVERALL BI-RADS CATEGORY: BI-RADS 4: SUSPICIOUS ABNORMALITY [facility]
== END | disposition home or self-care (01) ==
PROVIDERS: PCP Family Medicine; Referring Provider Obstetrics & Gynecology; Visit Provider Obstetrics & Gynecology
DX: N64.52 Nipple discharge (principal)
CPT/HCPCS: 77049; A9575; A4216; C8908

== ENCOUNTER 2024-04-19 11:00 | Emergency (ER) | payer OTHER, SELFPAY ==
[2024-04-19 11:01] VITALS: BP 127/82; PULSE 110; RESP 16; TEMP 36.6; O2SAT 100; BMI 28.3
[2024-04-19 11:12] VITALS: O2SAT 99
--- NOTE | 2024-04-19 11:41 | EDS_ITS ---
HPI History of Present Illness Chief Complaint: Cough Informant: patient Narrative Narrative: 43-year-old female states that on she left work with a headache. On Friday she developed some cough sore throat myalgias. She tested negative for COVID and influenza at urgent care. Later that day she developed temperature up to 100.3 which continued into Friday. She notes now gravelly voice. Continued cough with some mucus production. She notes that she has had pneumonia with wheezing in the past. No rashes. No vomiting diarrhea. [facility] Medical History Anxiety Depression PCOS (polycystic ovarian syndrome) History of miscarriage Home Medications ?Medication ?Instructions ?Recorded ?Last Taken ?Type spironolactone 25 mg tablet 50 mg PO DAILY 08/23/22 Un known History fluoxetine 40 mg capsule (Prozac) 40 mg PO DAILY #90 c aps 11/26/23 Unknown Rx semaglutide (weight loss) 1 mg/0.5 1 mg subcut Q7D 04/19 Unknown History mL subcutaneous pen injector albuterol sulfate 90 mcg/actuation 2 puff inhalation Q 4H PRN PRN 04/19/24 Unknown Rx aerosol inhaler (Ventolin HFA) Wheezing ##1 doxycycline monohydrate 100 mg 100 mg PO BID #14 CAPSU LES 04/19/24 Unknown Rx capsule levothyroxine 100 mcg tablet 100 mcg PO DAILY 04/19/24 Unknown History Allergy/AdvReac Type Severity Reaction Status Date / Time Penicillins Allergy Anaphylaxis Verified 04/19/24 11:01 Family History Grandfather Cancer lung Grandmother Cancer stomach Aunt Cancer osteo myeloma Surgical History S/P tonsillectomy S/P D&C (status post dilation and curettage) Social History household members: significant other housing: house number of children: 0 current occupational status: employed 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 Smoking Status: Never smoker alcohol intake: current alcohol intake frequency: a few times a week substance use type: does not use seatbelt use: always do you feel safe at home: Yes additional social history: LIZBETH- [facility] EM ROS ED Constitutional Constitutional ED: Reports fever(s) and sweats; Denies chills or weight loss Eyes Eyes: Denies change in vision or diplopia ENT ENT ED: Reports rhinorrhea and sore throat; Denies ear pain Cardiovascular Cardiovascular: Denies chest pain, orthopnea, palpitations or racing heartbeat Respiratory/Chest Respiratory/Chest: Reports cough; Denies dyspnea or orthopnea Gastrointestinal Gastrointestinal: Denies abdominal pain, diarrhea, nausea or vomiting Genitourinary Genitourinary ED: Denies dysuria, hematuria or urinary frequency Musculoskeletal Musculoskeletal: Reports myalgias; Denies arthralgias Integumentary Denies abscess or rash Neurologic Neurologic: Reports headache(s); Denies weakness Psychiatric Psychiatric: Denies anxiety, depression, suicidal ideation or suicidal thoughts Endocrine Endocrinology: Denies polydipsia, polyphagia or polyuria Allergic/Immunologic Allergic/Immunologic ED: Denies mouth swelling, tongue swelling or urticaria EXAM Physical Exam Const Vital Signs: 04/19/24 11:01 04/19/24 11:12 04/19/24 12:40 Temperature 97.9 F 97.8 F Temperature Source Oral Pulse Rate 110 H 84 Respiratory Rate 16 16 Respiratory Effort Normal Respiratory Depth Normal Respiratory Pattern Normal Blood Pressure 127/82 H 127/66 H Blood Pressure Mean 97 86 Pulse Ox 100 99 Oxygen Delivery Method Room Air Room Air Positive well nourished and well developed General Appearance ED: well developed HEENT Reports normocephalic, head/scalp atraumatic and moist mucous membranes HEENT Narrative: There is some cobblestoning of the posterior pharynx. Eyes PERRL and EOMs intact bilaterally Neck no lymphadenopathy, supple and no JVD Resp normal respiratory effort and clear to auscultation bilaterally Resp Narrative: There is some rhonchi and expiratory wheeze noted in the right base that clears with coughing Cardio regular rate, regular rhythm and no murmurs GI normal to inspection, nondistended, normoactive bowel sounds and non-tender Palpation: soft Back/Spine no CVA tenderness and normal ROM Extremity normal to inspection General Extremety ED: Negative for edema General Extremity: Negative for edema Neuro oriented x3 and CN's II-XII intact bilaterally Sensorium / Orientation: alert Motor Exam: strength 5/5 throughout Psych mental status grossly normal Mood & Affect: Negative for depressed or tearful Skin no rashes or lesions noted and no wounds MDM MDM MDM Narrative Medical decision making narrative: Differential diagnosis includes but not limited to viral syndrome laryngitis bronchitis pneumonia pleural effusion, bronchospasm My independent interpretation of the chest x-ray is no acute process. She was already tested for COVID and influenza. Given her symptomology I think is most likely a viral respiratory illness. I do hear some evidence of bronchospasm on lung auscultation which I can write for inhaler. Should the patient not improve I will write for some doxycycline. If she feels that she is worsening or has concerns I would recommend her returning to emergency for evaluation. History & Record Review Discussion w/independent historian: Patient Radiography Diagnostic Testing: Clinical Impression(s) from Imaging Studies Chest X-Ray 04/19/24 11:45 IMPRESSION: No acute cardiopulmonary process. Reading Location: [facility] Discharge Plan Triage Chief Complaint: Cough ED Provider: Sukhijnder Lopez Dx/Rx/DC Orders Clinical Impression: Laryngitis, Cough Instructions: ED Laryngitis Prescriptions: New doxycycline monohydrate 100 mg capsule 100 mg PO BID Qty: 14 0RF albuterol sulfate [Ventolin HFA] 90 mcg/actuation HFA aerosol inhaler 2 puff inhalation Q4H PRN PRN (Reason: Wheezing) Qty: 1 0RF Rx Instructions: with spacer No Action spironolactone 25 mg tablet 50 mg PO DAILY fluoxetine [Prozac] 40 mg capsule 40 mg PO DAILY Qty: 90 12RF semaglutide (weight loss) 1 mg/0.5 mL pen injector 1 mg subcut Q7D levothyroxine 100 mcg tablet 100 mcg PO DAILY Patient Comments: TAKE 1 TABLET BY MOUTH 5 DAYS OF THE WEEK, SKIP ON 2 DAYS OF THE WEEK (MAY BE FRIDAY AND FRIDAY) Primary Care Provider: Kimberly uKmari Referrals: Kimberly Kumari PA-C [Primary Care Provider] - As Needed Print Language: Italian Disposition Disposition: Home, Self Care Discharge Date/Time: 04/19/24 12:41
--- NOTE | 2024-04-19 11:45 | RAD_ITS ---
EXAM: XR Chest, 2 Views CLINICAL INDICATION: TECHNIQUE: Frontal and lateral views of the chest. COMPARISON: No relevant prior studies available. FINDINGS: LUNGS AND PLEURAL SPACES: Unremarkable. No consolidation. No pneumothorax. HEART: Unremarkable. No cardiomegaly. MEDIASTINUM: Unremarkable. Normal mediastinal contour. BONES/JOINTS: Unremarkable. No acute fracture. RAD/Chest PA and Lateral IMPRESSION: No acute cardiopulmonary process. Reading Location: [facility]
[2024-04-19 12:40] VITALS: BP 127/66; PULSE 84; RESP 16; TEMP 36.6; O2SAT 99
== END 2024-04-19 12:41 | disposition home or self-care (01) ==
PROVIDERS: Emergency Provider Emergency Medicine; PCP Family Medicine; Visit Provider Emergency Medicine
DX: J04.0 Acute laryngitis (principal); R51.9 Headache, unspecified; Z79.890 Hormone replacement therapy; Z79.51 Long term (current) use of inhaled steroids; R05.9 Cough, unspecified
CPT/HCPCS: 71046; 99282

== ENCOUNTER 2024-08-05 06:11 | Emergency (ER) | payer OTHER, SELFPAY ==
[2024-08-05 06:12] VITALS: BP 148/88; PULSE 87; RESP 18; TEMP 36.6; O2SAT 100; BMI 30.4
--- NOTE | 2024-08-05 06:23 | EX.ED.VIS.HA ---
HPI History of Present Illness Chief Complaint: Headache Narrative Narrative: 43-year-old female past medical history of breast carcinoma started a hormone kathleen recently. This may have triggered her migraine headache. She states that yesterday everything was fine but 2:00 this morning, approximately 4 and half hours ago, she developed a migraine headache. It is mainly on the right side of her head but does cross the forehead. She became nauseated and vomited once. She had taken her migraine medication but vomited it up an hour later. She also tried to take ibuprofen and drink a cup of coffee that which usually helps her migraine headaches. She endorses photophobia and phonophobia, but denies any preceding aura or scotoma. No exacerbating or alleviating factors. Currently rates it at 9 out of 10. States she has had to come to the emergency department previously 1 other time where she received a cocktail of medications and IV fluids which helped. [facility] Medical History Breast cancer Contact with or suspected exposure to other viral communicable disease Acute upper respiratory infection Chronic bronchitis with acute exacerbation Pneumonia Acute bronchitis Acute upper respiratory infection Sore throat Acute left otitis media Anxiety Depression PCOS (polycystic ovarian syndrome) History of miscarriage Home Medications ?Medication ?Instructions ?Recorded ?Last Taken ?Type spironolactone 25 mg tablet 50 mg PO DAILY 08/23/22 Unknown History semaglutide (weight loss) 1 mg/0.5 1 mg subcut Q7D 11/26/23 Unknown History mL subcutaneous pen injector levothyroxine 100 mcg tablet 100 mcg PO DAILY 04/19/24 Unknown History fluoxetine 10 mg capsule (Prozac) 10 mg PO QDAY #30 caps 06/04/24 Unknown Rx fluoxetine 40 mg capsule (Prozac) 40 mg PO DAILY #90 caps 06/08/24 Unknown Rx anastrozole 1 mg tablet 1 mg PO DAILY 08/05/24 Unknown History eletriptan 40 mg tablet 40 mg PO DAILY 08/05/24 Unknown History ondansetron HCl 4 mg tablet 4 mg PO Q8H PRN PRN nausea/vomiting 08/05/24 Unknown History Allergy/AdvReac Type Severity Reaction Status Date / Time Penicillins Allergy Anaphylaxis Verified 08/05/24 06:12 Family History Grandfather Cancer lung Grandmother Cancer stomach Aunt Cancer osteo myeloma Surgical History History of bilateral mastectomy S/P tonsillectomy S/P D&C (status post dilation and curettage) Social History household members: significant other housing: house number of children: 0 current occupational status: employed 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 Positive nausea and vomiting, no hematemesis, no recent fevers or chills, no preceding aura. Positive photophobia and phonophobia. EXAM Physical Exam Narrative Exam Narrative: Afebrile. Vital signs noted. Nontoxic-appearing. Cardiovascular examination regular rate and rhythm. Lungs clear to auscultation bilaterally. Abdomen soft and nontender without guarding or rebound. Neurological examination nonfocal, nonlateralizing. PERRL, EOMI. Airway patent. Neck soft and supple without meningismus. Moves all extremities. Const Vital Signs: 08/05/24 06:12 Temperature 97.9 F Temperature Source Oral Pulse Rate 87 Respiratory Rate 18 Blood Pressure 148/88 H Blood Pressure Mean 108 Pulse Ox 100 Oxygen Delivery Method Room Air MDM MDM MDM Narrative Medical decision making narrative: I reviewed her prior records, I have not seen prior visits to this ED regarding migrainous type headaches. She is allergic to penicillin. She will be given a bolus of IV fluids as well as Compazine and Benadryl. She states she had already taken ibuprofen without relief. After Compazine and Benadryl, repeat examination at approximately 7:15 AM showed her to be able to ambulate to the bathroom and back. Additionally, she currently rates her headache at 2 or 3, down from a 9. At this point in time, I feel she can be discharged safely home with follow-up. She will continue her medications for migraine at home. Additionally, she did not want to necessarily wait for the rest of the IV fluids to finish as she states she feels markedly improved. Return instructions were reviewed. Disposition is discharged home in stable condition. History & Record Review Discussion w/independent historian: Patient Additional record(s) reviewed:: Prior ED visit (No specific medications for migraine headache) Discharge Plan Triage Chief Complaint: Headache ED Provider: Mehul Perez Dx/Rx/DC Orders Prescriptions: No Action spironolactone 25 mg tablet 50 mg PO DAILY semaglutide (weight loss) 1 mg/0.5 mL pen injector 1 mg subcut Q7D Patient Comments: SUNDAYS levothyroxine 100 mcg tablet 100 mcg PO DAILY Patient Comments: TAKE 1 TABLET BY MOUTH 5 DAYS OF THE WEEK, SKIP ON 2 DAYS OF THE WEEK (MAY BE FRIDAY AND FRIDAY) eletriptan 40 mg tablet 40 mg PO DAILY anastrozole 1 mg tablet 1 mg PO DAILY ondansetron HCl 4 mg tablet 4 mg PO Q8H PRN PRN (Reason: nausea/vomiting) fluoxetine [Prozac] 10 mg capsule 10 mg PO QDAY Qty: 30 12RF fluoxetine [Prozac] 40 mg capsule 40 mg PO DAILY Qty: 90 12RF Primary Care Provider: Kimberly Kumari Referrals: Kimberly Kumari PA-C [Primary Care Provider] - Print Language: Indonesian
[2024-08-05] MEDS: DiphenhydrAMINE 50 MG/ML Syringe 25 MG IV (06:27)
[2024-08-05] MEDS: 0.9% Normal Saline (1000mL) 1,000 ML 999 ML IV (06:27)
[2024-08-05] MEDS: proCHLORPERazine 10 MG/2 ML Vial IV (06:27)
--- OUTSIDE RECORDS SUMMARY | 2024-08-05 06:52 | XMS RPT_ITS | CCD ---
Author Organization [facility] ion [facility] Care Team Providers Care Packer [employer]ausage [employer] Wiener Name Role Phone Josephine Meadows Unavailable Unavailable Milana RN, Jessi Stephens Unavailable Unavailable Milana RN, Jessi Stephens Unavailable Unavailable Jania Irvin Unavailable Josephine Meadows Unavailable Unavailable Josephine Meadows Unavailable Unavailable AVELINO Harding Primary Care Provider [phone] [place] AVELINO CERVANTES Referring Provider ANKIT Vincent Attending Provider [phone] [place], Primary Care Unavailable [place], Consulting Unavailable [place], Attending Unavailable [place], Admitting Unavailable PROVIDER, UNKNOWN Consulting Unavailable [place], Admitting Unavailable [place], Primary Care Unavailable [place], Consulting Unavailable [place], Attending Unavailable PROVIDER, UNKNOWN Consulting Unavailable [place], Admitting Unavailable [place], Primary Care Unavailable [place], Consulting Unavailable [place], Attending Unavailable PROVIDER, UNKNOWN Consulting Unavailable [place], Admitting Unavailable [place], Primary Care Unavailable [place], Consulting Unavailable [place], Attending Unavailable PROVIDER, UNKNOWN Consulting Unavailable [place] Kimberly YOU Primary Care Provider [phone] Jarod EPIC ANALYST.Isabela KOEHLER Primary Care Provi subha ISABELA OLIVERA Attending Unavailable ISABELA OLIVERA Primary Care Unavailable ISABELA OLIVERA Attending Unavailable JAROD, ISABELA Primary Care Unavailable ISABELA OLIVERA Referring Unavailable ISABELA OLIVERA Primary Care Unavailable Jaimee Randall MD Unavailable [facility] Unavailable CUELLAR, ELLY M Referring Unavailable CUELLAR, ELLY M Attending Unavailable [facility] Primary Care Unavailable CUELLAR, ELLY M Referring Unavailable CUELLAR, ELLY M Attending Unavailable [facility] Primary Care Unavailable PRADEEP TAYLOR Attending Unavailable Chery Xiong Attending Unavailable [facility], Primary Care Unavailable [place] PA, Referring Unavailable [place] [facility], Primary Care Unavailable [place] PA, Referring Unavailable Erasmo PA, Alex Attending Unavailable Erasmo PA, Alex Attending Unavailable [place] [facility], Primary Care Unavailable [place] [facility], Referring Unavailable Marina Guzman Attending Unavailabl e [place] PA, [place] Primary Care Unavailable Marina Guzman Referring Unavailabl e Sukhjinder Lopez Attending Unavailable [place] [facility], Primary Care Unavailable [place] [facility], Primary Care Unavailable Marina Guzman Attending Unavailabl e [place] PA, Referring Unavailable Chery Xiong Attending Unavailable Chery Xiong Referring Unavailable [facility], Primary Care Unavailable Chery Xiong Attending Unavailable Chery Xiong Referring Unavailable [facility], Primary Care Unavailable KARY RIZZO Attending Unavailable [facility] Primary Care Unavailable [facility] Primary Care Unavailable PRADEEP TAYLOR Referring Unavailable [facility] Primary Care Unavailable GLORY ARMSTRONG Referring Unavaila OLGA Cruz Attending Unavailable SELF Referring Unavailable [facility] Care Unavailable [facility] Primary Care Unavailable PRADEEP TAYLOR Referring Unavailable [facility] Primary Care Unavailable PRADEEP TAYLOR Referring Unavailable OLGA NAILS Attending Unavailable [facility] Primary Care Unavailable OLGA NAILS Attending Unavailable [facility] Primary Care Unavailable KARY RIZZO Attending Unavailable [facility] Care Unavailable [facility] Primary Care Unavailable BENDARAM, GLORY CALVO Referring Unavaila ble SELF Referring Unavailable [facility] Primary Care Unavailable LILIANAMGLORY Attending Unavaila ble [facility] Primary Care Unavailable ATHY, MATEO R Referring Unavailable JAROD, ISABELA Primary Care Unavailable ARIAN, CRISSY Y Referring Unavailable [facility] Primary Care Unavailable ARIAN, CRISSY Y Attending Unavailable [facility] Primary Care Unavailable SHANI, LISSETTE Referring Unavailable [facility] Primary Care Unavailable [facility] Primary Care Unavailable SHANI LISSETTE Attending Unavailable [facility] Care Unavailable [facility] Primary Care Unavailable ONGERNÉSTORJAIMEE Referring Unavailable ISIAH MESSINA Attending Unavailable [facility] Care Unavailable TAYLOR, VINCENT Referring Unavailable [facility] Primary Care Unavailable TAYLOR, VINCENT Referring Unavailable ONGERJAIMEE Attending Unavailable [facility] Care Unavailable TAYLOR, VINCENT Referring Unavailable [facility] Care Unavailable APRILGERKATHRINY Attending Unavailable OLGA NAILS Attending Unavailable [facility] Care Unavailable OLGA NAILS Attending Unavailable [facility] Care Unavailable [facility] Primary Care Unavailable ONGERNÉSTORJAIMEE Referring Unavailable [facility] Primary Care Unavailable CLAUDIA, PRADEEP Attending Unavailable TAYLOR, ADANENT Admitting Unavailable [facility] Primary Care Unavailable TAYLOR, ADANENT Attending Unavailable TAYLOR, VINCENT Admitting Unavailable NNAMDI FAIRBANKS Attending Unavailable [facility] Care Unavailable TAYLOR, VINCENT Referring Unavailable [facility] Care Unavailable TAYLOR, VINCENT Referring Unavailable [facility] Care Unavailable RADHA KAMARA Referring Unavailable [facility] Primary Care Unavailable GLORY ARMSTRONG Attending Unavaila ELLY Juarez Attending Unavailable [facility] Care Unavailable MAKAYLA JACOBS Attending Unavailable [facility] Care Unavailable [facility] Primary Care Unavailable PRADEEP TAYLOR Attending Unavailable Allergies Allergy Classification Reported Allergen(s) Allergy Type Date of Onset Reaction(s) Facility Penicillins (antibiotic) (1 source) Penicillins Drug Allergy 7 Anaphylaxis [facility] (6 sources) penicillin g drug allergy 6 Swelling of throat [facility] Work Phone: (16 sources) Penicillins; Translations: [PENICILLINS] Allergy to substance 7 Anaphylaxis [facility] (1 source) Penicillin Drug Allergy [facility] (20 sources) Penicillins Propensity to adverse reactions 7 Swelling, Anaphylaxis [facility] Work Phone: (20 sources) Penicillins Drug Allergy 7 Anaphylaxis [facility] (1 source) Penicillins Drug allergy (disorder) [facility] Medications Current Medications Medication Drug Class(es) Dates Sig (Normalized) Sig (Original) acetaminophen 500 mg oral tablet (7 sources) Start: 06-16-2024 End: 07-01-2024 take 2 tablets by mouth every six hours in the evening as needed for pain, then take 1-2 tablets by mouth every six hours as needed for pain acetaminophen (TYLENOL) 500 mg tablet Take 2 tablets by mouth every 6 hours for 5 days, THEN 1-2 tablets every 6 hours as needed for pain for up to 10 days. 90 tablet 06/16/2024 4:01 PM EDT 06/16/2024 07/01/2024 Active anastrozole 1 mg oral tablet (2 sources) Aromatase Inhibitor Start: 07-14-2024 End: 10-12-2024 take 1 tablet by mouth once daily anastrozole (ARIMIDEX) 1 mg tablet Indications: Malignant neoplasm of breast, stage 1, estrogen receptor positive, unspecified laterality (HCC) Take 1 tablet by mouth once daily. Patient should start on July 14, 2024. 30 tablet 2 07/14/2024 10/12/2024 Active cefadroxil 500 mg oral capsule (9 sources) Cephalosporin Antibacterial Start: 06-16-2024 End: 06-30-2024 take 1 capsule by mouth twice daily in the evening cefADROxil (DURICEF) 500 mg capsule Take 1 capsule by mouth two times a day for 14 days. 28 capsule 06/16/2024 4:01 PM EDT 06/16/2024 06/30/2024 Active take 2 capsules by mouth once [place] cefADROxil (DURICEF) 500 mg capsule Take 500 mg by mouth two times a day. 7 days. As of today, she has 2 more days to go Active cholecalciferol 0.125 mg oral tablet (20 sources) Vitamin D Start: 07-03-2015 cholecalcifero l (VITAMIN D3) 5,000 unit tab Take by mouth. 07/03/2015 Active Start: 07-03-2015 take 1 tablet by susan once daily VITAMIN D3 5000 UNIT TABS 1 tablet by mouth daily CHOLECALCIFEROL [id number] Kimberly Kumari AVELINO End: 09-16-2023 take 1 tablet by mouth once daily cholecalciferol (VITAMIN D) 1,000 unit tab Take 1,000 Units by mouth once daily. 0 09/16/2023 Discontinued Comment on above: Take 1,000 Units by mouth once daily. eletriptan 40 mg oral tablet (20 sources) Serotonin-1b and Serotonin-1d Receptor Agonist Start: 5 End: 5 take 1 tablet by mouth every two hours as needed for headache eletriptan (RELPAX) 40 mg tablet Indications: 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 and with status migrainosus Take 1 tablet by mouth as needed for migraine headache (see administration instructions). May repeat dose after 2 hours if needed. Maximum daily dose is 80 mg per day. 12 tablet 1 07/27/2024 08/26/2024 Active Start: 11-28-2023 End: 12-30-2023 eletriptan (RELPAX) 40 mg ta blet Indications: 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 and with status migrainosus TAKE 1 TABLET NEEDED FOR MIGRAINE HEADACHE (SEE ADMINISTRATION INSTRUCTIONS) AT THE ONSET OF MIGRAINE HEADACHE (1 IN 24 HOURS) 12 tablet 19 12/30/2023 Active Start: 05-15-2023 End: 12-25-2023 take 1 tablet by mouth every two hours as needed eletriptan (RELPAX) 20 mg tablet Take 1 tablet (20 mg) by mouth as needed. May repeat dose after 2 hours if needed. Maximum daily dose is 80 mg per day. 12 tablet 11/25/2023 11/28/2023 Discontinued Comment on above: Take 1 tablet (20 mg ) by mouth as needed for migraine headache (see administration instructions) (2 max in 24 hours). at the onset of migraine headache. famotidine 20 mg oral tablet (1 source) Histamine-2 Receptor Antagonist Start: take 1 tablet by mouth once daily before mealtime Famotidine (Pepcid Ac) 20 mg tablet Active 20 MG PO DAILY December 09, 2020 12:00am FLUoxetine 20 mg oral tablet (20 sources) Serotonin Reuptake Inhibitor Start: take 40 mg by mouth once daily Fluoxetine Active 40 MG PO DAILY April 02, 2020 1:00am FLUoxetine (PROZ AC) 40 mg capsule Take 50 mg by mouth once daily. Active take 1 capsule by mo [facility] once daily FLUoxetine (PROZAC) 40 mg capsule Take 40 mg by mouth once daily. Active End: 05-31-2024 take 1 tablet by mouth once daily FLUoxetine HCl 20 mg tablet Take 20 mg by mouth once daily. 05/31/2024 Discontinued (Dosage adjustment) Comment on above: Take 20 mg by mouth once daily. iv contrast (will be provided with radiology test) (1 source) Start: 05-10-2024 End: 05-11-2024 iv contrast (will be provided with radiology test) Indications: Abnormal finding on radiology exam MRI RT Breast Bx Inject, intravenously, once for 1 dose. No IV access, insert saline lock prior to the beginning of sedation, infusion, injection of imaging exam. Discontinue saline lock post exam. If Pt has a central line or IVAD, may access for administration according to line specific nursing protocol. Once exam is complete flush line and de-access according to line specific nursing protocol in the MR contrast administration guidelines link 1 Each 05/10/2024 05/11/2024 Active levothyroxine sodium 0.1 mg oral tablet (20 sources) l-Thyroxine Start: 08-31-2023 End: 03-31-2024 levothyroxine (SYNTHROID) 100 mcg tablet Indications: Hypothyroidism, acquired Take 1 tablet on 5 days of the week, skip on 2 days of the week (may be Friday and Friday) 65 tablet 1 03/31/2024 Active Magnesium (20 sources) Magnesium 200 mg tab Take by mouth. Active Magnesium 200 mg tab Take by mouth. 0 Active metFORMIN hydrochloride 500 mg oral tablet (11 sources) Biguanide Start: 08-23-2022 take 500 mg by mouth twice daily Metformin Active 500 MG PO TWICE A DAY August 23, 2022 12:00am Start: 07-03-2015 take 1 tablet by susan twice daily METFORMIN HCL ER (OSM) 500 MG AP38Q-AAN One tablet by mouth twice daily METFORMIN HCL [id number] Kimberly Kumari PA-C Start: 05-02-2014 End: 07-22-2023 take 1 tablet by mouth twice daily at mealtime metFORMIN 500 mg 24 hr tablet Indications: Polycystic ovarian disease , Obesity , Impaired glucose tolerance Take 500 mg by mouth twice daily with meals. 60 tablet 3 05/02/2014 07/22/2023 Discontinued (Discontinued by Patient) Comment on above: Take 500 mg by mouth twice daily with meals. ondansetron 4 mg oral tablet (3 sources) Serotonin-3 Receptor Antagonist Start: End: take 1 tablet by mouth every eight hours as needed ondansetron (ZOFRAN) 4 mg tablet Take 1 tablet by mouth every 8 hours as needed for nausea/vomiting for up to 5 days. 15 tablet 06/24/2024 06/29/2024 Active Start: 12-09-2020 End: 08-23-2022 take 4 mg by mouth every eight hours Ondansetron Discontinued 4 MG PO Q8H 10 December 09, 2020 12:00am August 23, 2022 8:27am oxyCODONE hydrochloride 5 mg oral tablet (4 sources) Opioid Agonist Start: 06-24-2024 End: 07-01-2024 take 1 tablet by mouth every eight hours as needed for pain oxyCODONE IR (ROXICODONE) 5 mg immediate release tablet Indications: Post-operative pain Take 1 tablet by mouth every 8 hours as needed for pain for up to 7 days. 21 tablet 06/24/2024 07/01/2024 Active SEMAGLUTIDE, WEIGHT LOSS, SUBCUTANEOUS (20 sources) inject 70 [IU] by subcutaneous injection every week SEMAGLUTIDE, WEIGHT LOSS, SUBCUTANEOUS Inject 70 Units subcutaneously one time a week. Active inject 70 [IU] by gipson bcutaneous injection every week SEMAGLUTIDE, WEIGHT LOSS, SUBCUTANEOUS Inject 70 Units subcutaneously one time a week. 0 Active sennosides, chcf 8.6 mg oral tablet (7 sources) Start: 06-16-2024 End: 07-01-2024 take 1 tablet by mouth every twelve hours as needed senna (SENOKOT) 8.6 mg tab Take 1 tablet by mouth two times a day as needed for constipation for up to 15 days. 30 tablet 06/16/2024 4:01 PM EDT 06/16/2024 07/01/2024 Active spironolactone 50 mg oral tablet (20 sources) Aldosterone Antagonist Start: 03-11-2023 spironolactone (ALDACTONE) 50 mg tablet 03/11/2023 Active Start: 08-23-2022 Spironolactone Active 50 MG PO August 23, 2022 8:28am Start: 03-11-2022 End: 08-23-2022 Spironolactone Discontinued TAB PO March 11, 2022 1:00am August 23, 2022 8:28am thyroid (chcf) 30 mg oral tab let (10 sources) Start: 03-11-2022 Thyroid (Pork) (Automotive Leasing Sales Representative Thyroid) 30 mg tablet Active EACH PO March 11, 2022 1:00am End: 08-31-2023 take 1 tablet by mouth once daily BUSINESS 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 Also takes additional 30 mg equaling (60 mg) Fri 0 08/31/2023 Discontinued Completed/Discontinued Medications Medication Drug Class(es) Dates Sig (Normalized) Sig (Original) ascorbic acid 1000 mg oral tablet (3 sources) Vitamin C Start: 09-10-2016 take 1 tablet by mouth once daily VITAMIN C 1000 MG TABS One tablet by mouth daily ASCORBIC ACID [id number] Josephine Meadows atogepant (QULIPTA) 60 mg tablet (20 sources) Start: 11-28-2023 End: 05-31-2024 take 1 tablet by mouth once daily atogepant (QULIPTA) 60 mg tablet Indications: 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 and with status migrainosus Take 1 tablet (60 mg) by mouth once daily. 30 tablet 11/28/2023 05/31/2024 Discontinued (Cost of medication) Start: 11-28-2023 take 1 tablet by susan th once daily atogepant (QULIPTA) 60 mg tablet Indications: 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 and with status migrainosus Take 1 tablet (60 mg) by mouth once daily. 30 tablet 11/28/2023 Active azithromycin 250 mg oral tablet (2 sources) Macrolide Antimicrobial Start: 03-06-2021 End: 06-30-2023 Azithromycin Discontinued 0 PO .COMPLEX 6 March 11, 2022 12:02pm August 23, 2022 8:27am take 500 mg today (day 1), then 250 mg for 4 days (days 2-5) PO 30 ml bupivacaine hydrochloride 2.5 mg/ml injection (2 sources) Amide Local Anesthetic Start: 10-13-2023 End: 10-13-2023 bupivacaine (PF) 0.25 % (2.5 mg/mL) 12 mg injection (SENSORCAINE MPF) Start: 10-13-2023 End: 10-13-2023 12 mg, peripheral nerve bloc k, ONCE, 1 dose, On Fri10/13/23 at 1330 cefuroxime 250 mg oral tablet (9 sources) Cephalosporin Antibacterial Start: 07-03-2015 End: 09-10-2016 take 2 tablets by mouth once daily CEFUROXIME AXETIL 250 MG TABS 2 tablets by mouth daily CEFUROXIME AXETIL [id number] Kimberly Kumari PA-C cephalexin 500 mg oral capsule (1 source) Cephalosporin Antibacterial Start: 11-24-2020 End: 12-04-2020 take 500 mg by mouth every twelve hours Cephalexin Discontinued 500 MG PO Q12H 20 November 24, 2020 12:00am December 04, 2020 12:01am doxycycline anhydrous 40 mg delayed release oral capsule (4 sources) Tetracycline-class Drug End: 07-22-2023 take 1 capsule by mouth once daily Doxycycline Monohydrate (ORACEA) 40 mg capsule Take 40 mg by mouth once daily. 0 07/22/2023 Discontinued (Course of therapy completed) Comment on above: Take 40 mg by mouth once daily. drospirenone / Ethinyl Estradiol (13 sources) Progestin, Estrogen Start: 09-10-2016 End: 08-18-2023 Drospirenone-Ethin yl Estradiol (Carmen KWOK,) 3-0.02 mg per tablet every 24 hours. 0 09/10/2016 08/18/2023 Discontinued Start: 09-10-2016 Drospirenone-E thinyl Estradiol (Carmen KWOK,) 3-0.02 mg per tablet every 24 hours. 0 09/10/2016 Active Start: 09-10-2016 take 1 tablet by susan once daily SUNDAR 3-0.02 MG TABS One tablet by mouth daily DROSPIRENONE-ETHINYL ESTRADIOL [id number] Josephine Meadows Comment on above: every 24 hours. EPINEPHrine 0.01 mg/ml / lidocaine hydrochloride 10 mg/ml injectable solution (2 sources) Antiarrhythmic, alpha-Adrenergic Agonist, beta-Adrenergic Agonist, Catecholamine, Amide Local Anesthetic Start: 05-27-2024 End: 05-27-2024 SUBCUTANEOUS, X (OR/PROCEDURE) PRN, Starting on Joy 05/27/24 at 1236, Until Joy 05/27/24 at 1236, Intraprocedure Start: 05-20-2024 End: 05-20-2024 SUBCUTANEOUS, X (OR/PROCEDUR E) PRN, Starting on Joy 05/20/24 at 0828, Until Joy 05/20/24 at 0828, Intraprocedure fluconazole 150 mg oral tablet (6 sources) Azole Antifungal Start: 07-28-2015 End: 07-31-2015 FLUCONAZOLE 150 MG TABS One tablet x 1, may repeat in 3 days if needed FLUCONAZOLE [id number] [facility] goserelin 10.8 mg drug implant (1 source) Gonadotropin Releasing Hormone Receptor Agonist Start: 07-20-2024 End: 07-20-2024 inject 1 dose by subcutaneous injection once 10.8 mg, SUBCUTANEOUS, ONCE, 1 dose, On Fri07/20/24 at 1500, Hazardous Chemotherapy Drug: Use appropriate PPE. Lidocaine (2 sources) Antiarrhythmic, Amide Local Anesthetic Start: 05-27-2024 End: 05-27-2024 X (OR/PROCEDURE) PRN, Starting on Joy 05/27/24 at 1235, Until Joy 05/27/24 at 1235, Intraprocedure Start: 05-20-2024 End: 05-20-2024 OTHER, X (OR/PROCEDURE) PRN, Starting on Joy 05/20/24 at 0826, Until Joy 05/20/24 at 0826, Intraprocedure loratadine 10 mg oral capsule (6 sources) Start: 07-03-2015 take 1 capsule by mouth once daily CLARITIN 10 MG CAPS 1 capsule by mouth daily LORATADINE [id number] Kimberly Kumari PA-C Start: 07-03-2015 take 1 capsule by mo [facility] once daily CLARITIN 10 MG CAPS 1 capsule by mouth daily LORATADINE [id number] Kimberly Kumari PA-C medroxyPROGESTERone acetate 10 mg oral tablet (4 sources) Progestin Start: 09-30-2019 End: 07-22-2023 take 1 tablet by mouth once daily medroxyPROGESTERone (PROVERA) 10 mg tablet Take 1 tablet by mouth once daily. 10 tablet 1 09/30/2019 07/22/2023 Discontinued (Course of therapy completed) Comment on above: Take 1 tablet by susan once daily. norethindrone 0.35 mg oral tablet (7 sources) Start: 08-23-2022 End: 10-13-2023 Norethindrone, Contraceptive, 0.35 mg tablet Take by mouth. 08/23/2022 10/13/2023 Discontinued phenazopyridine hydrochloride 100 mg oral tablet (4 sources) Start: 03-15-2019 End: 07-22-2023 take 1 tablet by mouth three times daily as needed phenazopyridine (PYRIDIUM) 100 mg tablet Indications: Burning with urination Take 1 tablet by mouth three times daily as needed. 9 tablet 0 03/15/2019 07/22/2023 Discontinued (Discontinued by Patient) Comment on above: Take 1 tablet by susan three times daily as needed. Vit 57-Zvlr-Ugazs-Dha ( + Dha) 28 mg iron- 975 mcg-200 mg Combo Pack (1 source) Start: 11-05-2020 End: 08-23-2022 Vit 29-Vhwo-Wauax-Dha ( + Dha) 28 mg iron- 975 mcg-200 mg Combo Pack Discontinued 1 PKG PO DAILY November 05, 2020 12:00am August 23, 2022 8:27am rizatriptan 10 mg disintegrating oral tablet (1 source) Serotonin-1b and Serotonin-1d Receptor Agonist Start: 04-22-2023 End: 05-15-2023 rizatriptan (MAXALT IMMUNOLOGIST) 10 mg disintegrating tablet sulfacetamide sodium 100 mg/ml / sulfur 40 mg/ml medicated pad (4 sources) Sulfonamide Antibacterial End: 07-22-2023 Sulfacetamide Sodium-Sulfur 10-4 % padm Apply 1 application to affected area twice daily. 0 07/22/2023 Discontinued (Discontinued by Patient) Comment on above: Apply 1 application to affected area twice daily. SUMAtriptan 100 mg oral tablet (6 sources) Serotonin-1b and Serotonin-1d Receptor Agonist Start: 09-09-2016 IMITREX 100 MG TABS One tablet by mouth daily as needed: may repeat X 1 in 24 hours if h/s persista after 2 hours SUMATRIPTAN SUCCINATE [id number] Jessi Cortés RN topiramate 50 mg oral tablet (11 sources) Start: 05-15-2023 End: 08-18-2023 take 1 tablet by mouth once daily at bedtime topiramate (TOPAMAX) 50 mg tablet Take 1 tablet by mouth daily at bedtime. 30 tablet 3 06/04/2023 08/18/2023 Discontinued Comment on above: Take 1 tablet by susan th daily at bedtime. 1 ml triamcinolone acetonide 40 mg/ml injection (2 sources) Corticosteroid Start: 10-13-2023 End: 10-13-2023 triamcinolone acetonide 40 mg injection (KeNALog 40) Start: 10-13-2023 End: 10-13-2023 40 mg, INTRALESIONAL, ONCE, 1 dose, On Fri10/13/23 at 1330 B COMPLEX VITAMINS (3 sources) Start: 09-10-2016 take 1 tablet by mouth once daily VITAMIN B COMPLEX TABS One tablet by mouth daily B COMPLEX VITAMINS [id number] Josephine Meadows VITAMIN B COMPLEX-100 ORAL (20 sources) End: 05-31-2024 take 1 tablet by mouth once daily VITAMIN B COMPLEX-100 ORAL Take 1 tablet by mouth once daily. 05/31/2024 Discontinued take 1 tablet by mouth once ruben y VITAMIN B COMPLEX-100 ORAL Take 1 tablet by mouth once daily. Active take 1 tablet by mouth once ruben y VITAMIN B COMPLEX-100 ORAL Take 1 tablet by mouth once daily. 0 Active Comment on above: Take 1 tablet by susan th once daily. Problems Active Problems Problem Classification Problem Date Documented Date Episodic/Chronic Acute bronchitis (1 source) Acute bronchitis; Translations: [Acute bronchitis, unspecified] 03-11-2022 Episodic Administrative/social admission (3 sources) Patient encounter status; Translations: [Persons encountering health services in other specified circumstances] Onset: 07-22-2023 07-22-2023 Episodic Anxiety disorders (14 sources) Anxiety; Translations: [Anxiety disorder, unspecified] Onset: 06-15-2024 06-15-2024 Chronic Cancer of breast (20 sources) Intraductal carcinoma in situ of right breast; Translations: [Intraductal carcinoma in situ of right breast] Onset: 06-01-2024 05-31-2024 Chronic Cancer of breast (1 source) History of malignant neoplasm of breast; Translations: [Personal history of malignant neoplasm of breast] 05-31-2024 Episodic Gastritis and duodenitis (1 source) Gastritis; Translations: [Gastritis, unspecified, without bleeding] 12-17-2020 Episodic Headache; including migraine (20 sources) Migraine with aura; Translations: [Migraine with aura, not intractable, without status migrainosus] Onset: 12-16-2023 08-23-2022 Chronic Headache; including migraine (2 sources) Disorder of scalp; Translations: [Scalp pain] 07-23-2023 Episodic Hemorrhage during ; abruptio placenta; placenta previa (1 source) Bleeding from female genital tract during ; Translations: [Antepartum hemorrhage, unspecified, unspecified trimester] 2020 Episodic Malaise and fatigue (20 sources) Fatigue; Translations: [Chronic fatigue, unspecified] Onset: 07-22-2023 07-22-2023 Chronic Mood disorders (2 sources) Bipolar I disorder; Translations: [Bipolar disorder, unspecified] Onset: 06-15-2024 06-15-2024 Chronic Nausea and vomiting (1 source) Nausea; Translations: [Nausea] 12-17-2020 Episodic Nonmalignant breast conditions (8 sources) Fibrocystic changes of bilateral breasts; Translations: [Diffuse cystic mastopathy of right breast] Onset: 05-10-2024 05-10-2024 Chronic Nonmalignant breast conditions (20 sources) Discharge from nipple; Translations: [Pain of breast] Onset: 04-26-2024 05-10-2024 Episodic Other aftercare (1 source) H/O: malignant neoplasm; Translations: [Encounter for follow-up examination after completed treatment for malignant neoplasm] 06-23-2024 Episodic Other aftercare (1 source) Encounter for follow-up examination after completed treatment for malignant neoplasm; Translations: [Encounter for postoperative examination after surgery for malignant neoplasm] Onset: 06-23-2024 Episodic Other connective tissue disease (1 source) Muscle pain; Translations: [Myalgia, unspecified site] 07-22-2023 Episodic Other connective tissue disease (1 source) Myalgia, unspecified site; Translations: [Myalgias] Onset: 07-22-2023 Episodic Other endocrine disorders (6 sources) Polycystic ovaries; Translations: [Polycystic ovarian syndrome] Onset: 07-03-2015 07-03-2015 Chronic Other endocrine disorders (20 sources) Polycystic ovary syndrome; Translations: [Polycystic ovarian syndrome] Onset: 05-10-2009 08-23-2022 Chronic Other endocrine disorders (3 sources) Polycystic ovarian syndrome; Translations: [Polycystic ovaries] Onset: 05-10-2009 08-23-2022 Chronic Other female genital disorders (1 source) Abnormal uterine and vaginal bleeding, unspecified; Translations: [Abnormal uterine and vaginal bleeding, unspecified] Onset: 12-27-2023 Chronic Other nervous system disorders (2 sources) Paresthesia; Translations: [Paresthesia of skin] 07-22-2023 Episodic Other nervous system disorders (1 source) Paresthesia of skin; Translations: [Paresthesia] Onset: 07-22-2023 Episodic Other nervous system disorders (2 sources) Postoperative pain ; Translations: [Other acute postprocedural pain] 06-24-2024 Episodic Other nervous system disorders (3 sources) Other acute postprocedural pain; Translations: [Postoperative pain] Onset: 06-16-2024 Episodic Other screening for suspected conditions (not mental disorders or infectious disease) (6 sources) Radiology result abnormal; Translations: [Abnormal findings on diagnostic imaging of other specified body structures] Onset: 05-20-2024 05-20-2024 Chronic Otitis media and related conditions (1 source) Acute left otitis media; Translations: [Otitis media, unspecified, left ear] 11-24-2020 Episodic Residual codes; unclassified (1 source) Postoperative state; Translations: [Other specified postprocedural states] 06-24-2024 Episodic Residual codes; unclassified (1 source) Estrogen receptor positive status [ER+]; Translations: [Malignant neoplasm of breast, stage 1, estrogen receptor positive, unspecified laterality (HCC)] Onset: 07-20-2024 Episodic Residual codes; unclassified (2 sources) Other specified postprocedural states; Translations: [S/P breast reconstruction] Onset: 06-24-2024 Episodic Thyroid disorders (20 sources) Hypothyroidism, unspecified; Translations: [Acquired hypothyroidism] Onset: 04-10-2023 07-22-2023 Chronic Unclassified (14 sources) Encounter for screening for lipoid disorders; Translations: [Abnormal findings on diagnostic imaging of breast] Onset: 07-03-2015 07-03-2015 Episodic Unclassified (3 sources) Procedure carried out on subject; Translations: [Encounter for screening for lipoid disorders] Onset: 07-03-2015 07-03-2015 Unclassified (1 source) APPOINTMENT CANCELLED 09-17-2023 Unclassified (2 sources) Patient encounter status 06-01-2024 Unclassified (1 source) Cough, unspecified; Translations: [Cough, unspecified] Onset: 04-27-2024 Unclassified (1 source) Post Op Onset: 07-01-2024 Past or Other Problems Problem Classification Problem Date Documented Da te Episodic/Chronic Cardiac dysrhythmias (6 sources) Palpitations; Translations: [Palpitations] Onset: 09-09-2016 09-09-2016 Episodic Immunizations and screening for infectious disease (1 source) Contact with and (suspected) exposure to other viral communicable diseases; Translations: [Contact with and (suspected) exposure to other viral communicable diseases] Onset: 04-16-2024 Episodic Other upper respiratory infections (7 sources) Acute upper respiratory infection; Translations: [Acute upper respiratory infection, unspecified] Onset: 01-07-2024 03-06-2021 Episodic Spondylosis; intervertebral disc disorders; other back problems (5 sources) Neck pain; Translations: [Cervicalgia] Onset: 07-22-2023 07-22-2023 Episodic Syncope (6 sources) Near syncope; Translations: [Syncope and collapse] Onset: 09-09-2016 09-09-2016 Episodic Results Test Name Value Interpretation Reference Range Facility Estradiol SerPl-mCncon 07-20 E2 [Mass/Vol] 105 pg/mL Normal [facility] Comment on above: Order Comment: Speci men Type: BLOOD SPECIMEN Ordering Facility: [facility] [place] Address: [address] [place] [address] Result Comment: This test is not suitable for patients receiving treatment with the drug Fulvestrant (Faslodex). The drug causes an interference leading to falsely elevated estradiol results. Menstrual cycle Estradiol reference ranges: Follicular : < 234 pg/mL Ovulation : 41 to 398 pg/mL Luteal : < 342 pg/mL Estradiol reference ranges vary by gestational period: First trimester : 154 to 3243 pg/mL Second trimester : 1561 to 21349 pg/mL Third trimester : 8285 to >22645 pg/mL Post-menopausal Estradiol reference range: < 41 pg/mL Reference: 1. Estradiol - E2 (Estradiol III) [package insert V 3.0 Albanian]. [facility], [place], [place], July 2015. Performed By: #### 1 5067-2, 2243-4 #### [facility] CLIA [id number] [address] [place] [address] [place] [facility] SerPl-aCncon 07-20-2024 Follitropin Qn 3.5 m[IU]/mL Normal See comment [facility] Comment on above: Order Comment: Speci men Type: BLOOD SPECIMEN Ordering Facility: [facility] [place] Address: [address] [place] [address] Result Comment: Refe rebeccace range: Follicular: 3.5-12.5 mIU/mL Ovulation: 4.7-21.5 mIU/mL Luteal: 1.7-7.7 mIU/mL Postmenopausal: 25.8-134.8 mIU/mL Performed By: #### 1 5067-2, 3-4 #### [facility] CLIA [id number] [address] [place] [address] [place] Urgent Care Visit Reporton 07-16-2024 Urgent Care Visit Report [facility] [address], [address] [place] [address] OFFICE VISIT Date of Service: 07/16/24 MR#: [id number] Acct: [id number] Name: YOLANDE GOMES Rep #: [id number] : 1980 Provider: HELEN Jamison Age/Sex: 43/F Location: [facility] Status: Signed Intake Vital Signs 04/19/24 11:01 07/16/24 11:48 Height 5 ft 2 in BP 130/80 H Blood Pressure Location Lt brachial Position Sitting Respiration 16 Pulse 90 Pulse Source NIBP Temp 98.3 F Temp Source Oral Pulse Oximetry (%) 98 Oxygen Delivery Method room air Intake Visit Reasons: SORE THROAT, HEADACHE, EAR ACHE Chief Complaint: ST, chest congest, cough, fatigue, ear pain, drainage Spiral Weaver Required: No Is patient in pain?: No Allergies Penicillins Allergy (Verified 07/16/24 11:49) Anaphylaxis Medications ???Medication ???Instructions ???Recorded ???Confirmed ???Type spironolactone 25 mg tablet 50 mg PO DAILY 08/23/22 04/19/24 H istory semaglutide (weight loss) 1 mg/0.5 1 mg subcut Q7D 11/26/23 5 History mL subcutaneous pen injector albuterol sulfate 90 mcg/actuation 2 puff inhalation Q4H PRN PRN Rx aerosol inhaler (Ventolin HFA) Wheezing ##1 levothyroxine 100 mcg tablet 100 mcg PO DAILY 04/19/24 04/19/24 History fluoxetine 10 mg capsule (Prozac) 10 mg PO QDAY #30 caps 06/04/24 Rx fluoxetine 40 mg capsule (Prozac) 40 mg PO DAILY #90 caps 06/08/24 Rx sulfamethoxazole 800 1 tab PO Q12H 7 days #14 tabs 06/2507/16/24 Rx mg-trimethoprim 160 mg tablet (Bactrim DS) Is last menstrual period known: No Post menopausal: No Patient : No Have you fallen in the past year?: No Nurse's Note: ST, chest congest, cough, fatigue, ear pain, drainage x 6 days. denies fever. bilateral mastectomy 1 month ago, starting hormone therapy in approx 1 week. concerned for worsening s/s PFSH Medical History Chronic bronchitis with acute exacerbation Contact with or suspected exposure to other viral communicable disease Acute left otitis media Sore throat Acute upper respiratory infection Acute bronchitis Pneumonia Acute upper respiratory infection Anxiety Depression PCOS (polycystic ovarian syndrome) History of miscarriage Surgical History S/P tonsillectomy S/P D C (status post dilation and curettage) Family History Grandfather Cancer lung Grandmother Cancer stomach Aunt Cancer osteo myeloma Social History household members: significant other housing: house number of children: 0 current occupational status: employed 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 No fever, chills or sweats. No nausea, vomiting or diarrhea. No loss of taste or smell. No other associated symptoms or alleviating/aggravating factors. ROS Const Constitutional: No other (6 system ROS completed with pertinent findings in the HPI otherwise normal.) Exam Const General: cooperative and healthy appearing [facility] Head: normal to inspection Ears: hearing grossly normal bilaterally, TM's normal bilaterally and EAC's normal Nose: nasal discharge purulent Face and sinus: sinus tenderness frontal and maxillary Mouth: oral mucosae normal Throat: abnormal tonsil bilaterally erythema and hypertrophy 1+ and postnasal drainage Resp Effort Inspection: normal respiratory effort Auscultation: Bilateral: Clear to Auscultation Cardio Palpation: normal PMI Rate: regular rate Rhythm: regular rhythm Neuro General: patient alert and CN's II-XI intact bilaterally Psych Appearance: grossly normal Mental Status: mental status grossly normal Coding Level of Care Code Off vis,est,level 3 Diagnoses Acute sinusitis J01.90 Assessment and Plan Assessment and Plan (1) Acute sinusitis: Status: Acute Medications: New sulfamethoxazole-trimethopr im 800-160 mg (Bactrim DS) 1 TAB PO Q12H 14 tabs 0RF 7 days Plan Bactrim as prescribed today. Encouraged to get plenty of rest, drink lots of clear liquids, and use Tylenol or Ibuprofen (unless contraindicated) for (more content not included)... Normal [facility] CNOVon 07-15-2024 CNOV Office Visit (PLASMN ) ELISEOYOLANDE Leonard ([id number]) 1980 F Date Time Provider Department 07/15/24 4:00 PM OLGA NIEVES PLASMTanner During your visit today, we recorded the following information about you: Temperature Pulse Respiration Blood pressure 98 degrees 91/minute 14/minute 116/73 Olga Nieves PA-C 07/15/2024 5:30 PM Signed Plastic Surgery Note CC: Post op HPI: Yolande is a 43 year old female s/p 06/16/2024 Bilateral breast reconstruction with tissue bundler seasonal greenery placement (Abbvie 133 mV 500 mL) in prepectoral positions with use of matrix support 20x25 cm (500 cm2) on each side of the breast bilaterally. Time Post Op: 1 month Bilateral TE Volume: 400 mL air/500 mL Here today for tissue expansion She had right breast excision of margin by Dr. Taylor on 07/06/24 (drains removed during this surgery) Patient reports tightness and tenderness bilateral breasts, burning sensation is improving Pain: 06/03- Taking tylenol, advil, and oxycodone Currently taking Duricef, has 2 doses left ROS: No fevers, chills, new redness, pain, wound drainage or incisional breakdown Objective: LMP 06/22/2024 (Exact Date) PAST MEDICAL HISTORY Diagnosis Date Acne On spironolactone Anxiety Dysmenorrhea Dyspareunia Hypothyroidism also known nodule Migraines Papanicolaou smear of cervix with low grade squamous intraepithelial lesion (LGSIL) 02/24/2006 PMH - PAST MEDICAL HISTORY OF bipolar, borderline personality disorder PAST SURGICAL HISTORY Procedure Laterality Date PAST SURGICAL HISTORY OF tonsils PAST SURGICAL HISTORY OF DANDC 2017 and 2020 Current Outpatient Medications Medication Sig Dispense Refill anastrozole (ARIMIDEX) 1 mg tablet Take 1 tablet by mouth once daily. Patient should start on July 14, 2024. 30 tablet 2 cholecalciferol (VITAMIN D3) 5,000 unit tab Take by mouth. FLUoxetine (PROZAC) 40 mg capsule Take 50 mg by mouth once daily. levothyroxine (SYNTHROID) 100 mcg tablet Take 1 tablet on 5 days of the week, skip on 2 days of the week (may be Friday and Friday) 65 tablet 1 eletriptan (RELPAX) 40 mg tablet TAKE 1 TABLET NEEDED FOR MIGRAINE HEADACHE (SEE ADMINISTRATION INSTRUCTIONS) AT THE ONSET OF MIGRAINE HEADACHE (1 IN 24 HOURS) (Patient not taking: Reported on 06/23/2024) 12 tablet 19 Magnesium 200 mg tab Take by mouth. (Patient not taking: Reported on 06/23/2024) SEMAGLUTIDE, WEIGHT LOSS, SUBCUTANEOUS Inject 70 Units subcutaneously one time a week. spironolactone (ALDACTONE) 50 mg tablet No current facility-administered medications for this visit. ALLERGIES Allergen Reactions Penicillins Anaphylaxis PE: AANDOx3, NAD BP 116/73 Pulse 91 Temp 36.7 ?C (98 ?F) (Temporal) Resp 14 LMP 06/22/2024 (Exact Date) SpO2 98% The wounds are dry and intact with no s/s infection No symptoms or signs of infection Bilateral breasts soft, no evidence of hematoma/seroma The patient was identified by name and , that presents today for post-op appointment for breast tissue expansion. There were no issues with last expansion. Expansion process explained to patient. Discussed risks, benefits alternatives and personnel. Questions answered. Patient expresses understanding of process. Patient tolerated the procedure well. Current total 400 cc air/ 500 cc Bilateral TE 400 cc air removed from bilateral tissue expanders Filled with 300 cc NS Bilateral TE New total: 300 cc NS /500 cc Bilateral TE Aspiration of Seroma Procedure Note Location: Bilateral breast Seroma Safety check performed The patient agreed on the procedure to be done R/B/A discussed with the patient Bilateral breast prepped with chloraprep and sterilely draped A 21 gauge angiocath/butterfly needle was inserted into bilateral breast seroma yielding 50 cc ss fluid bilaterally (50 cc right breast and 50 cc left breast) A dry sterile dressing was applied The patient tolerated the procedure well. A/P: S/p bilateral breast reconstruction with placement of TE and matrix support Expected post operative course Doing well -Expansion as above -Seroma drainage as above, instructed to wear ESTEFANIA compression wrap -activity restrictions discussed, okay to resume activity/exercise slowly, easily progress -continue surgical bra, can use sports bra/soft bra, no underwire. Can stop wearing at night -avoid water submersion (pools/ baths/ hot tub) until here are no open areas or scabs along incision and you are fully healed -okay for silicone sheets/scar massage if indicated -okay for skin/scar moisturizer, rec Aquaphor/Eucerin/Cerave -okay to sleep on your sides If experiencing wound complications or have any questions or concerns during business hours call [phone] or after hours (after 5 pm or on the weekend) call [phone] and ask for the plastic surgery resident / fellow on ms (more content not included)... Normal [facility] CNOVon 07-14-2024 CNOV Office Visit (LUNACA ) YOLANDE GOMES ([id number]) 1980 F Date Time Provider Department 07/14/24 9:00 AM KARY RIZZO During your visit today, we recorded the following information about you: Temperature Pulse Respiration Blood pressure 97.6 degrees 92/minute 18/minute 120/74 Weight 75 kg Sandy Boyd LPN 07/14/2024 9:36 AM Signed Additional intake questions: Has the patient had fever, nausea, vomiting, diarrhea, constipation, fatigue for > 1 week? Yes, nausea and diarrhea ( 2 times in last 24 hours) Does the patient have a decreased appetite? No Does patient want to see a Chain Repairer? No (yes to any of above refer patient to schedulers for dietitian appointment) ) Does patient have any new or increased numbness or tingling of extremities? No Does patient need any prescription refills? No Does patient have an advanced directive in place? No, Patient referred to [facility] Social work contacted for the PHQ-9 score of 19. Electronically Signed By: MATTHEW Duran Alexace, APRN.CNP 07/14/2024 9:[address] [facility] Department of Breast Surgical Oncology [facility] POST OPERATIVE FOLLOW-UP SERVICE DATE: 07/14/24 SURGERY DATE: 07/06/24 POSTOPERATIVE VISIT #1 SUBJECTIVE: Yolande Gomes, 43 year old year old female presents today for her first post operative appointment status post right breast margin re-excision with Dr. Taylor. She originally underwent a right Breast Mastectomy, Right Axillary [place] lymph node biopsy, Left Breast prophylactic Mastectomy with Dr. Taylor in combination with Dr. Messina for bilateral tissue bundler seasonal greenery placement on 06/16/24 where final pathology revealed a positive margin. She is overall doing well postoperatively. Her pain has been well controlled. She was given oxycodone postoperatively and took a few pills. 0 refills were given. She will begin anastrozole and lupron injections. She is interested in undergoing a total abdominal hysterectomy and will consult with technical research scientist. She denies any erythema, discharge from the incision, or significant swelling. She denies fever, chills, night sweats, chest pain, shortness of breath, nausea, vomiting, diarrhea, constipation, or urinary changes. PATHOLOGY REPORT: SURGICAL PATHOLOGY: [id number] Order: [id number] Collected 07/06/2024 7:58 AM Component FINAL DIAGNOSIS Right breast, skin margin, excision - Skin and subcutaneous tissue with post-surgical site changes, (please see comment). -The final, inked margin is negative for carcinoma. MATA/mata/07/08/24 at 1026 EDT The sensitive examination was discussed with the Patient or Patient's Authorized Water Service Supervisor. As applicable, any other physician, advance practice provider, medical student, or other health professional student that will be observing or involved in the sensitive examination for educational or training purposes was discussed with the Patient or Authorized Water Service Supervisor. The Patient or Authorized Water Service Supervisor has agreed to proceed with the sensitive examination. (Sensitive examination includes inspection and/or palpation of the breasts, pelvis, prostate and anorectal regions) OBJECTIVE: PHYSICAL EXAM: Bilateral breast incisions are healing well with intact overlying steri strips. Minor ecchymosis. No surrounding erythema or areas of fluctuance. Right breast is slightly larger with an increase in swelling. POST OPERATIVE STATUS: POST OPERATIVE STATUS OR RIGHT BREAST: Uncomplicated post-operative course, POST OPERATIVE STATUS OR LEFT BREAST: Uncomplicated post-operative course, Assessment ASSESSMENT: Yolande Monteztiffanybrady, 43 year old year old female who is status post right breast margin re-excision with Dr. Taylor. Her final pathology was negative for carcinoma. We reviewed these results in detail. She is overall doing well with no surgical site concerns. PLAN: Follow up with medical oncology 10/11 Follow up with plastic surgery 07/[address] Taylor 09/24 Contact the breast surgery office for any questions and/or concerns regarding the surgical incision/site. All questions were answered; patient has no further concerns and is in agreement with the plan. Kary PARK, SUSANNA Breast Surgical Oncology Call Physician If: Call your MD or seek immediate medical attention if you experience any of the following symptoms: 1. Fever of 101.5 (38.5 C) or greater 2. Pain not controlled with prescribed pain medications 3. Uncontrolled nausea and/or vomiting 4. Drainage or swelling around your incisions and/or surgical sites 5. Separation of incisions, or tearing of the incision line 6. Large fluid collection under or around the incision or flap sites 7. Skin discoloration (includi (more content not included)... Normal [facility] ANES POSTPROC EVALon 025 ANES POSTPROC EVAL HNO ID: [id number] Author: WILLIE RILEY DO Service: ? 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 PACU/ICU Patient Condition: stable. Anticipated Disposition: phase 2 then home. Neurological Status: aware and responsive. Pulmonary Status: breathing comfortably on room air Airway Control: returned to baseline unsupported. Cardiovascular Status: stable. Pain Management: clinically adequate Postoperative Hydration: acceptable. Intraoperative Events: no significant anesthesia events Post Operative Nausea/Vomiting Status: no significant post operative nausea or vomiting Recommendation: continue current plan of care. Anesthesia Observations No Documentation SIGNATURE: Willie Riley DO PATIENT NAME: Yolande Gomes DATE: July 06, 2024 TIME: 10:53 AM CSN: [id number] Normal [facility] ANES PRE-OPon 07-06-2024 ANES PRE-OP HNO ID: [id number] Author: WILLIE RILEY DO Service: ? Author Type: Anesthesiologist Type: Anesthesia Preprocedure Evaluation Filed: 07/06/2024 08:15 Note Text: ANESTHESIOLOGY DAY OF SURGERY NOTE : 1980 Procedure Information Anesthesia Start Date/Time: 07/06/24717 Procedure: excision of positive margin (Right: Breast) Location: [facility] Surgeons: Pradeep Taylor MD Estimated body mass index is 28.52 kg/m? as calculated from the following: Height as of 07/01/24: 160 cm (5' 3). Weight as of 07/01/24: 73 kg (161 lb). Most recent hematocrit and potassium results: Hematocrit 44.0 05/31/2024 Potassium 4.5 05/31/2024 Relevant Problems CARDIO (+) Migraines ENDO (+) Hypothyroidism, acquired NEURO-PSYCH (+) Migraines I - PHYSICAL EVALUATION AIRWAY Patient intubated: No. Tracheostomy tube not present Mallampati: I. TM distance: >3 FB. Neck ROM: full ROM without neurological symptoms. Mouth opening: adequate. Short neck: no. Thick neck: no DENTAL Dental findings: teeth intact. Additional exam findings: no II - ANESTHESIA PLAN ASA Score: 3 Anesthetic Plan: general Airway type: LMA The patient is not a current smoker. NPO Status: adequate Beta [place] Monitoring Plan Monitoring plan: standard ASA. Post Procedure Analgesic Plan Postoperative analgesic plan: multimodal analgesia. Informed Consent Anesthetic risks, benefits, alternatives, personnel and consent discussed: yes. Patient / Responsible Constitution Party agrees to proceed: yes Patient / Surrogate agrees to blood products: Yes Significant changes in the patient condition since the History and Physical, not otherwise documented in primary service progress note: no. Potential Anesthesia issues that may suggest increased risk of complications or contraindication to planned procedure: none. BP 126/74 07/06/24630 Pulse 84 07/06/24630 Resp 16 07/06/24630 Temp 36.2 ?C (97.2 ?F) 07/06/24630 SpO2 99 % 07/06/24630 Facility-Administered Medications as of 07/06/2024 Medication Dose Route Frequency - lidocaine (PF) 10 mg/mL (1 %) 1-2 mg injection (XYLOCAINE) 0.1-0.2 mL INTRADERMAL PRN Or - lidocaine 1% 0.25 mL subcutaneous j-tip syringe (XYLOCAINE) 0.25 mL SUBCUTANEOUS PRN - NaCl 0.9% iv flush bag 20 mL INTRAVENOUS PRN - clindamycin iv piggyback 900 mg in D5W 50 mL (CLEOCIN) 900 mg INTRAVENOUS Pre-Op Once - [COMPLETED] ondansetron (PF) 4 mg injection (ZOFRAN) 4 mg INTRAVENOUS ONCE Outpatient Medications as of 07/06/2024 Medication Sig - FLUoxetine (PROZAC) 40 mg capsule Take 50 mg by mouth once daily. - levothyroxine (SYNTHROID) 100 mcg tablet Take 1 tablet on 5 days of the week, skip on 2 days of the week (june be Friday and Friday) - spironolactone (ALDACTONE) 50 mg tablet - cholecalciferol (VITAMIN D3) 5,000 unit tab Take by mouth. - [] oxyCODONE IR (ROXICODONE) 5 mg immediate release tablet Take 1 tablet by mouth every 8 hours as needed for pain for up to 7 days. - [] acetaminophen (TYLENOL) 500 mg tablet Take 2 tablets by mouth every 6 hours for 5 days, THEN 1-2 tablets every 6 hours as needed for pain for up to 10 days. - [] senna (SENOKOT) 8.6 mg tab Take 1 tablet by mouth two times a day as needed for constipation for up to 15 days. - eletriptan (RELPAX) 40 mg tablet TAKE 1 TABLET NEEDED FOR MIGRAINE HEADACHE (SEE ADMINISTRATION INSTRUCTIONS) AT THE ONSET OF MIGRAINE HEADACHE (1 IN 24 HOURS) (Patient not taking: Reported on 06/23/2024) - Magnesium 200 mg tab Take by mouth. (Patient not taking: Reported on 06/23/2024) - SEMAGLUTIDE, WEIGHT LOSS, SUBCUTANEOUS Inject 70 Units subcutaneously one time a week. I have interviewed and examined the patient. I have reviewed the medical record and/or the pre-anesthesia evaluation, pertinent labs, and test results. This contains updated information obtained within 48 hours of Surgery/Procedure. SIGNATURE: Willie Riley DO PATIENT NAME: Yolande Gomes DATE: July 06, 2024 TIME: 7:25 AM CSN: [id number] [facility] OPERATIVE NOon 07-06-2024 OPERATIVE NO HNO ID: [id number] Author: PRADEEP TAYLOR MD Service: General Surgery Author Type: Physician Type: Operative Report Filed: 07/06/2024 08:34 Note Text: OPERATIVE/PROCEDURE REPORT LOG ID: [id number] SURGERY DATE: 07/06/2024 Incision/Procedure Start Time: 7:50 AM Incision Close/Procedure End Time: 8:35 AM Surgeon(s) and Earthmoving Labourer(s): Primary: Pradeep Taylor MD Resident - Assisting: Matt May MD No Additional Staff SURGERY/PROCEDURES: Right breast excision of margin Anesthesia: General Breast/Oncologic History: Yolande Gomes is a 43 year old female with a history significant for Hypothyroidism , no family history of breast or ovarian cancer, who presents for an evaluation of a new 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 Rt breast UOQ mid depth at least ADH. Stage 0, OckB1C7. Two focal areas of DCIS < 1 mm margin involvement. This is in area of previously marked skin (4-0 proline). Indicated for re-excision of margin. Further discussion with Dr. Messina day of surgery. Dr. Messina requests that both drains be removed at end of procedure. Procedure Details: After informed consent was obtained, the patient was taken to the operative suite and placed in the supine position on the operating table. A preoperative timeout was completed confirming the patient name, procedure, anticipated specimen, and other pertinent information. After monitored anesthesia was obtained, the patient's arms were placed at 90 degrees and secured. Bony prominences were padded per protocol. The Right BREAST, AXILLA, and ARM were prepped and draped in the standard sterile fashion. A time-out was performed again confirming the patient's name, procedure, laterality, anticipated specimen, and other pertinent information. The 4-0 proline stitch was found near the midline of the incision. An elliptical incision was made encompassing the skin marked by the 4-0 proline stitch. This was excised with 15 blade scalpel and electrocautery down to tissue bundler seasonal greenery / matrix. The skin was then removed and excised with electrocautery. This was oriented silk stitch marking: single short superior, single long lateral, skin anterior and sent to pathology. The cavity was then irrigated copiously with 100 cc betadine and 1000 cc warm saline. The fluid was then gently evacuated careful not to disrupt the TE. The cavities were again irrigated. Once hemostasis was complete and irrigation was clear the wounds were closed in multiple layers with 3-0 Vicryl followed by 4-0 monocryl suture. Steristrips were placed on the wounds and a sterile dressing above them. The bilateral drains were then stripped and removed and covered with sterile dressing. A total of 10 cc of 0.25% marcaine was injected a the incision site. The patient was brought to the recovery room awake and in stable condition. All sponge, needle, and, instrument counts were correct at the end of the procedure. I was present and scrubbed for the entire duration of the procedure. 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 Resident closed, under direct supervision and the remainder of the procedure was performed by the primary surgeon/proceduralist with assistance. SIGNATURE: Pradeep Taylor MD PATIENT NAME: Yolande Gomes DATE: 07/06/2024 TIME: 8:27 AM PAGER/CONTACT #: [id number] [facility] Pathology biopsy report Daniel (Tiss)on 07-06-2024 AP DISCLAIMER [facility] Comment on above: Order Comment: Speci men Type: BLOOD SPECIMEN Ordering Facility: [facility] [place] Address: [address] [place] [address] Result Comment: Cristobal mattson Developed Test (LDT) Disclaimer: Performance characteristics of immunohistochemical, immunofluorescent, and chromogenic in-situ hybridization tests have been determined by the performing laboratory within [facility] Pathology and Laboratory Medicine Department ([facility], [facility], [facility], [facility], [facility], [facility], or [facility]) in a manner consistent with CLIA requirements. One or more of these tests may not have been cleared or approved by the FDA. [facility] is regulated under CLIA as qualified to perform high-complexity testing. These tests are used for clinical purposes. These should not be regarded as investigational or for research. Positive and negative controls stain appropriately. Performed By: #### M ICRO #### [facility] CLIA [id number] [address] [place], [place] [address] [address] [place] CASE REPORT [facility] Comment on above: Order Comment: Speci men Type: BLOOD SPECIMEN Ordering Facility: [facility] [place] Address: [address] [place] [address] Result Comment: Surg ica Pathology Report Case: [id number] Authorizing Provider: Pradeep Taylor MD Collected: 07/06/2024 07:58 AM Ordering Location: Admitting Received: 07/06/2024 08:31 AM Pathologist: Marcell Buckley MD Specimen: Breast, Margin, Right, Excision, Right Breast Skin Margin Stitch Eller Single Short Superior, Long Lateral, Skin Anterior Performed By: #### M ICRO #### [facility] CLIA [id number] [address] [place] [address] [place] CLINICAL HISTORY Normal [facility] Comment on above: Order Comment: Speci men Type: BLOOD SPECIMEN Ordering Facility: [facility] [place] Address: [address] [place] [address] Result Comment: Pre- op diagnosis: 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 [facility] Comment on above: Order Comment: Speci men Type: BLOOD SPECIMEN Ordering Facility: [facility] [place] Address: [address] [place] [address] Performed By: #### M ICRO #### [facility] CLIA [id number] [address] [place] [address] [place] FINAL DIAGNOSIS [facility] Comment on above: Order Comment: Speci men Type: BLOOD SPECIMEN Ordering Facility: [facility] [place] Address: [address] [place] [address] Result Comment: Righ t breast, skin margin, excision - Skin and subcutaneous tissue with post-surgical site changes, (please see comment). -The final, inked margin is negative for carcinoma. PJM/pjm/07/08/24 at 1026 EDT Performed By: #### M ICRO #### [facility] CLIA [id number] [address] [place] [address] [place] FINAL PERFORMING LAB Normal [facility] Comment on above: Order Comment: Speci men Type: BLOOD SPECIMEN Ordering Facility: [facility] [place] Address: [address] [place] [address] Result Comment: Diag nostic interpretation performed at: [facility], [address] [place] [address] CLIA# [id number] Overlock Sleeve Setter: Carlos Finnegan MD Performed By: #### M ICRO #### [facility] CLIA [id number] [address] [place] [address] STATES [place] [facility] GROSS DESCRIPTION Normal [facility] Comment on above: Order Comment: Speci men Type: BLOOD SPECIMEN Ordering Facility: [facility] [place] Address: [address] [place] [address] Result Comment: Ani vasquezt, Margin, Right, Excision Received in formalin, labeled right breast skin margin is a 6.6 x 2.1 x 0.9 cm segment of skin and yellow, lobulated, fibrofatty breast tissue. The specimen is oriented with a short stitch at the superior margin, long stitch at the lateral margin and skin at the anterior margin. The specimen is inked as follows: Superior-blue, inferior-green, medial-orange, lateral-red and deep black. The skin surface is tee-pink, wrinkled and remarkable for a poorly healed surgical scar measuring 6.5 cm in length. The new margin is inked black and the opposing margin is inked blue. The specimen is sectioned to reveal tee, firm cut surfaces with multifocal areas of fat necrosis. The specimen is entirely submitted as follows: A1 medial margin, perpendicular A2-A7 body sequentially submitted from medial to lateral A8 lateral margin, perpendicular KSZ July 06, 2024 3:58 PM Gross examination performed at [facility], [address] [place] [address], [place] [address] Performed By: #### M ICRO #### [facility] CLIA [id number] [address] [place] [address] [place] CNOVon 07-01-2024 CNOV Office Visit (PLASMN ) YOLANDE GOMES ([id number]) 1980 F Date Time Provider Department 07/01/24 4:00 PM OLGA NIEVES During your visit today, we recorded the following information about you: Temperature Pulse Blood pressure Weight 98.5 degrees 77/minute 126/77 73 kg Height 1.6 m Olga Nieves PA-C 07/16/2024 6:25 AM Signed Plastic Surgery Note CC: Post op HPI: Yolande is a 43 year old female s/p 06/16/2024 Bilateral breast reconstruction with tissue bundler seasonal greenery placement (Abbvie 133 mV 500 mL) in prepectoral positions with use of matrix support 20x25 cm (500 cm2) on each side of the breast bilaterally. Time Post Op: 15 days Bilateral TE Volume: 400 mL air/500 mL Patient reports a burning sensation across her chest Pain: 08/03- Taking tylenol, advil, and oxycodone SUSY drains: #1 <30 ml daily for 2 consecutive days #2 <30 ml daily for 2 consecutive days On Duricef ROS: No fevers, chills, new redness, pain, wound drainage or incisional breakdown Objective: BP 126/77 Pulse 77 Temp 36.9 ?C (98.5 ?F) Ht 160 cm (5' 3) Wt 73 kg (161 lb) LMP 06/22/2024 (Exact Date) BMI 28.52 kg/m? PAST MEDICAL HISTORY Diagnosis Date Acne On spironolactone Anxiety Dysmenorrhea Dyspareunia Hypothyroidism also known nodule Migraines Papanicolaou smear of cervix with low grade squamous intraepithelial lesion (LGSIL) 02/24/2006 PMH - PAST MEDICAL HISTORY OF bipolar, borderline personality disorder PAST SURGICAL HISTORY Procedure Laterality Date PAST SURGICAL HISTORY OF tonsils PAST SURGICAL HISTORY OF DANDC 2017 and 2020 Current Outpatient Medications Medication Sig Dispense Refill cholecalciferol (VITAMIN D3) 5,000 unit tab Take by mouth. oxyCODONE IR (ROXICODONE) 5 mg immediate release tablet Take 1 tablet by mouth every 8 hours as needed for pain for up to 7 days. 21 tablet 0 acetaminophen (TYLENOL) 500 mg tablet Take 2 tablets by mouth every 6 hours for 5 days, THEN 1-2 tablets every 6 hours as needed for pain for up to 10 days. 90 tablet 0 senna (SENOKOT) 8.6 mg tab Take 1 tablet by mouth two times a day as needed for constipation for up to 15 days. 30 tablet 0 FLUoxetine (PROZAC) 40 mg capsule Take 50 mg by mouth once daily. levothyroxine (SYNTHROID) 100 mcg tablet Take 1 tablet on 5 days of the week, skip on 2 days of the week (may be Friday and Friday) 65 tablet 1 eletriptan (RELPAX) 40 mg tablet TAKE 1 TABLET NEEDED FOR MIGRAINE HEADACHE (SEE ADMINISTRATION INSTRUCTIONS) AT THE ONSET OF MIGRAINE HEADACHE (1 IN 24 HOURS) (Patient not taking: Reported on 06/23/2024) 12 tablet 19 Magnesium 200 mg tab Take by mouth. (Patient not taking: Reported on 06/23/2024) SEMAGLUTIDE, WEIGHT LOSS, SUBCUTANEOUS Inject 70 Units subcutaneously one time a week. spironolactone (ALDACTONE) 50 mg tablet No current facility-administered medications for this visit. ALLERGIES Allergen Reactions Penicillins Anaphylaxis PE: AANDOx3, NAD The wounds are dry and intact with no s/s infection No symptoms or signs of infection Bilateral breasts soft, no evidence of hematoma/seroma A/P: S/p bilateral breast reconstruction with placement of TE and matrix support Expected post operative course Doing well SUSY drain dressings changed today Continue to record SUSY drain output Activity restrictions discussed. No lifting anything great than 10 lbs Will plan to replace air with saline to bilateral TE's next week If experiencing wound complications or have any questions or concerns during business hours call [phone] or after hours (after 5 pm or on the weekend) call [phone] and ask for the plastic surgery resident / fellow computer applications developer for further instructions. If you have increasing swelling or bruising, particularly one side greater than the other. If swelling and redness persists after a few days. If you have increased redness along the incision. If you have severe or increased pain not relieved by medication. If you have an oral temperature of 100.4 degrees or higher. If you have any yellow or greenish drainage from the incisions or notice a foul smell. If you have bleeding from the incisions that is difficult to control with light pressure If you have new chest pain, shortness of breath or difficulty breathing Follow up 1 week Olga Nieves PA-C 07/01/2024 Allergies As of Date: 07/01/2024 Noted Allergy Reaction PENICILLINS 07/09/2006 10 - Anaphylaxis Date Reviewed: 07/01/2024 Reviewed by: Enoch Cade MA - Fully Assessed Reason for Visit: Post Op [174] Primary Visit Diagnosis:S/P breast reconstruction [Z98.890] Order(s):[] cefADROxil (DURICEF) 500 mg capsuleTake 1 capsule by mouth two times a day for 7 days.Disp: 14 capsuleRfl: 0 Prescriptions as of 07/16/2024 - cefADROxil (DURICEF) 500 mg capsule Take 500 mg by (more content not included)... [facility] CNOVon 06-30-2024 CNOV Office Visit (GENSF) YOLANDE GOMES ([id number]) 1980 F Date Time Provider Department 06/30/24 12:10 PM PRADEEP TAYLOR During your visit today, we recorded the following information about you: Pradeep Taylor MD 06/30/2024 12:43 PM Signed Called Ms. Gomes regarding pathology results. Given two focal < 1 mm involved margin for DCIS, recommended excision of small amount of overlying skin. This was marked previously intraoperatively, thus area of involvement can be targeted. Discussed with Dr. Messina and he is ok if we proceed with surgery without him. Reviewed next available date will be 07/06/24. This day will work for Ms. Gomes. Plan to be first case. Rt breast margin re-excision (marked with 4-0 proline sutures) Consent to be sent via [employer]t FISH for HER2 is pending Notified Mayuri Ma, and Mindy Taylor MD Ms. Gomes consented to telephone visit I spent a total of 30 minutes on the date of the service which included preparing to see the patient, completing clinical documentation, counseling and educating the patient/family/caregiver, communicating with other HCPs (not separately reported), communicating results to the patient/family/caregiver, and care coordination (not separately reported). 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 - acetaminophen (TYLENOL) 500 mg tablet Take 2 tablets by mouth every 6 hours for 5 days, THEN 1-2 tablets every 6 hours as needed for pain for up to 10 days. - senna (SENOKOT) 8.6 mg tab Take 1 tablet by mouth two times a day as needed for constipation for up to 15 days. - cefADROxil (DURICEF) 500 mg capsule Take 1 capsule by mouth two times a day for 14 days. - FLUoxetine (PROZAC) 40 mg capsule Take 50 mg by mouth once daily. - levothyroxine (SYNTHROID) 100 mcg tablet Take 1 tablet on 5 days of the week, skip on 2 days of the week (may be Friday and Friday) - eletriptan (RELPAX) 40 mg tablet TAKE 1 TABLET NEEDED FOR MIGRAINE HEADACHE (SEE ADMINISTRATION INSTRUCTIONS) AT THE ONSET OF MIGRAINE HEADACHE (1 IN 24 HOURS) - Magnesium 200 mg tab Take by mouth. - SEMAGLUTIDE, WEIGHT LOSS, SUBCUTANEOUS Inject 70 Units subcutaneously one time a week. - spironolactone (ALDACTONE) 50 mg tablet Problem List As Of Date 06/30/2024 Noted Resolved Polycystic Ovarian Disease [E28.2] 05/10/2009 Hypothyroidism, acquired [E03.9] 07/22/2023 Thyroid nodule [E04.1] 07/23/2023 Chronic fatigue [R53.82] 07/23/2023 Carcinoma in situ of right breast [D05.91] 06/01/2024 Anxiety [F41.9] 06/15/2024 Migraines [G43.909] 06/15/2024 Encounter Status:Closed by [facility] Office Visit (PLASMN ) DANIELTIFFANYYOLANDE ABREU Leonard ([id number]) 1980 F Date Time Provider Department 06/24/24 1:40 PM OLGA NIEVES During your visit today, we recorded the following information about you: Temperature Pulse Blood pressure Weight 97.2 degrees 80/minute 104/60 73 kg Height 1.6 m Olga Nieves PA-C 06/28/2024 1:12 PM Signed Plastic Surgery Note CC: Post op HPI: Yolande is a 43 year old female s/p 06/16/2024 Bilateral breast reconstruction with tissue bundler seasonal greenery placement (Abbvie 133 mV 500 mL) in prepectoral positions with use of matrix support 20x25 cm (500 cm2) on each side of the breast bilaterally. Time Post Op: 8 days Bilateral TE Volume: 400 mL air/500 mL Patient reports a burning sensation across her chest Pain: 08/03- Taking tylenol, advil, and oxycodone SUSY drains: #1 >30 ml daily for 2 consecutive days #2 >30 ml daily for 2 consecutive days On Duricef until 06/30/2024 ROS: No fevers, chills, new redness, pain, wound drainage or incisional breakdown Objective: LMP 06/22/2024 (Exact Date) PAST MEDICAL HISTORY Diagnosis Date Acne On spironolactone Anxiety Dysmenorrhea Dyspareunia Hypothyroidism also known nodule Migraines Papanicolaou smear of cervix with low grade squamous intraepithelial lesion (LGSIL) 02/24/2006 PMH - PAST MEDICAL HISTORY OF bipolar, borderline personality disorder PAST SURGICAL HISTORY Procedure Laterality Date PAST SURGICAL HISTORY OF tonsils PAST SURGICAL HISTORY OF DANDC 2017 and 2020 Current Outpatient Medications Medication Sig Dispense Refill acetaminophen (TYLENOL) 500 mg tablet Take 2 tablets by mouth every 6 hours for 5 days, THEN 1-2 tablets every 6 hours as needed for pain for up to 10 days. 90 tablet 0 senna (SENOKOT) 8.6 mg tab Take 1 tablet by mouth two times a day as needed for constipation for up to 15 days. 30 tablet 0 cefADROxil (DURICEF) 500 mg capsule Take 1 capsule by mouth two times a day for 14 days. 28 capsule 0 FLUoxetine (PROZAC) 40 mg capsule Take 50 mg by mouth once daily. levothyroxine (SYNTHROID) 100 mcg tablet Take 1 tablet on 5 days of the week, skip on 2 days of the week (may be Friday and Friday) 65 tablet 1 eletriptan (RELPAX) 40 mg tablet TAKE 1 TABLET NEEDED FOR MIGRAINE HEADACHE (SEE ADMINISTRATION INSTRUCTIONS) AT THE ONSET OF MIGRAINE HEADACHE (1 IN 24 HOURS) (Patient not taking: Reported on 06/23/2024) 12 tablet 19 Magnesium 200 mg tab Take by mouth. (Patient not taking: Reported on 06/23/2024) SEMAGLUTIDE, WEIGHT LOSS, SUBCUTANEOUS Inject 70 Units subcutaneously one time a week. spironolactone (ALDACTONE) 50 mg tablet No current facility-administered medications for this visit. ALLERGIES Allergen Reactions Penicillins Anaphylaxis PE: AANDOx3, NAD The wounds are dry and intact with no s/s infection No symptoms or signs of infection Bilateral breasts soft, no evidence of hematoma/seroma A/P: S/p bilateral breast reconstruction with placement of TE and matrix support Expected post operative course Doing well SUSY drain dressings changed today Continue to record SUSY drain output Activity restrictions discussed. No lifting anything great than 10 lbs Will plan to replace air with saline to bilateral TE's next week If experiencing wound complications or have any questions or concerns during business hours call [phone] or after hours (after 5 pm or on the weekend) call [phone] and ask for the plastic surgery resident / fellow computer applications developer for further instructions. If you have increasing swelling or bruising, particularly one side greater than the other. If swelling and redness persists after a few days. If you have increased redness along the incision. If you have severe or increased pain not relieved by medication. If you have an oral temperature of 100.4 degrees or higher. If you have any yellow or greenish drainage from the incisions or notice a foul smell. If you have bleeding from the incisions that is difficult to control with light pressure If you have new chest pain, shortness of breath or difficulty breathing Follow up 1 week Olga Nieves PA-C 06/24/2024 Referring Provider: SELF [200] Allergies As of Date: 06/24/2024 Noted Allergy Reaction PENICILLINS 07/09/2006 10 - Anaphylaxis Date Reviewed: 06/24/2024 Reviewed by: Enoch Cade MA - Fully Assessed Reason for Visit: Post Op [174] Primary Visit Diagnosis:Post-operative state [Z98.890] Other Visit Diagnosis:Post-operative pain [G89.18] Order(s):oxyCODONE IR (ROXICODONE) 5 mg immediate release tabletTake 1 tablet by mouth every 8 hours as needed for pain for up to 7 days.Disp: 21 tabletRfl: 0 ondansetron (ZOFRAN) 4 mg tabletTake 1 tablet by mouth every 8 hours as needed for nausea/vomiting for up to 5 days.Disp: 15 tabletRfl: 0 Prescriptions as of 06/29/19 (more content not included)... [facility] 06-24-2024 RODON Telephone ([facility]) ELISEOYOLANDE ([id number]) 1980 F Date Time Provider Department 06/24/24 NIKIA ROWLAND During your visit today, we recorded the following information about you: Nikia Rowland RN 06/24/2024 12:43 PM Signed Patient called confused about pathology and need for additional surgery. Discussed with LOUIS Rizzo and called patient back. Patient states understanding. Will discuss with Dr Taylor on 06/28. Nikia Rowland RN June 24, 2024 12:43 PM Allergies As of Date: 06/24/2024 Noted Allergy Reaction PENICILLINS 07/09/2006 10 - Anaphylaxis Date Reviewed: 06/23/2024 Reviewed by: Ioana Jimenez OCCA - Fully Assessed Reason for Visit: Returning Patient's Call [408] Prescriptions as of 06/24/2024 - acetaminophen (TYLENOL) 500 mg tablet Take 2 tablets by mouth every 6 hours for 5 days, THEN 1-2 tablets every 6 hours as needed for pain for up to 10 days. - senna (SENOKOT) 8.6 mg tab Take 1 tablet by mouth two times a day as needed for constipation for up to 15 days. - cefADROxil (DURICEF) 500 mg capsule Take 1 capsule by mouth two times a day for 14 days. - FLUoxetine (PROZAC) 40 mg capsule Take 50 mg by mouth once daily. - levothyroxine (SYNTHROID) 100 mcg tablet Take 1 tablet on 5 days of the week, skip on 2 days of the week (may be Friday and Friday) - eletriptan (RELPAX) 40 mg tablet TAKE 1 TABLET NEEDED FOR MIGRAINE HEADACHE (SEE ADMINISTRATION INSTRUCTIONS) AT THE ONSET OF MIGRAINE HEADACHE (1 IN 24 HOURS) - Magnesium 200 mg tab Take by mouth. - SEMAGLUTIDE, WEIGHT LOSS, SUBCUTANEOUS Inject 70 Units subcutaneously one time a week. - spironolactone (ALDACTONE) 50 mg tablet Problem List As Of Date 06/24/2024 Noted Resolved Polycystic Ovarian Disease [E28.2] 05/10/2009 Hypothyroidism, acquired [E03.9] 07/22/2023 Thyroid nodule [E04.1] 07/23/2023 Chronic fatigue [R53.82] 07/23/2023 Carcinoma in situ of right breast [D05.91] 06/01/2024 Anxiety [F41.9] 06/15/2024 Migraines [G43.909] 06/15/2024 Encounter Status:Closed by NIKIA ROWLAND on 06/24/[address] [facility] CNPN Telephone ([facility]) YOLANDE GOMES ([id number]) 1980 F Date Time Provider Department 06/24/24 KARY RIZZO During your visit today, we recorded the following information about you: Kary Rizzo APRN.CNP 06/24/2024 2:45 PM Addendum On 06/23 I Called and spoke with patient regarding positive surgical margin. Spoke with her in length about the pathology. We discussed the need to leave the skin suture in place which is marking the area of re-excision. I explained that if she undergoes surgical excision she will not require radiation. Dr. Taylor will be in contact with her and we will coordinate care for upcoming appointments and surgery. We will reach back out with a final plan and dates. Patient is in agreement with the plan. Kary Rizzo APRN-RODO, SUSANNA Breast Surgical Oncology Allergies As of Date: 06/24/2024 Noted Allergy Reaction PENICILLINS 07/09/2006 10 - Anaphylaxis Date Reviewed: 06/24/2024 Reviewed by: Enoch Cade MA - Fully Assessed Prescriptions as of 06/24/2024 - oxyCODONE IR (ROXICODONE) 5 mg immediate release tablet Take 1 tablet by mouth every 8 hours as needed for pain for up to 7 days. - ondansetron (ZOFRAN) 4 mg tablet Take 1 tablet by mouth every 8 hours as needed for nausea/vomiting for up to 5 days. - acetaminophen (TYLENOL) 500 mg tablet Take 2 tablets by mouth every 6 hours for 5 days, THEN 1-2 tablets every 6 hours as needed for pain for up to 10 days. - senna (SENOKOT) 8.6 mg tab Take 1 tablet by mouth two times a day as needed for constipation for up to 15 days. - cefADROxil (DURICEF) 500 mg capsule Take 1 capsule by mouth two times a day for 14 days. - FLUoxetine (PROZAC) 40 mg capsule Take 50 mg by mouth once daily. - levothyroxine (SYNTHROID) 100 mcg tablet Take 1 tablet on 5 days of the week, skip on 2 days of the week (may be Friday and Friday) - eletriptan (RELPAX) 40 mg tablet TAKE 1 TABLET NEEDED FOR MIGRAINE HEADACHE (SEE ADMINISTRATION INSTRUCTIONS) AT THE ONSET OF MIGRAINE HEADACHE (1 IN 24 HOURS) - Magnesium 200 mg tab Take by mouth. - SEMAGLUTIDE, WEIGHT LOSS, SUBCUTANEOUS Inject 70 Units subcutaneously one time a week. 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 CNOVon 06-23-2024 CNOV Office Visit (DEBIN ) YOLANDE GOMES ([id number]) 1980 F Date Time Provider Department 06/23/24 1:30 PM NNAMDI FAIRBANKS During your visit today, we recorded the following information about you: Temperature Pulse Respiration Blood pressure 98.2 degrees 86/minute 20/minute 126/82 Weight 73.3 kg Nnamdi Fairbanks MD 06/27/2024 11:56 PM Signed Radiation Oncology - New Patient/Consult Note PATIENT NAME: Yolande Gomes PATIENT REQUESTING PROVIDER: Pradeep Taylor MD DIAGNOSIS: 43 year old female, S/p RIGHT breast skin-sparing mastectomy, ipsilateral axillary sentinel lymph node biopsy; prophylactic LEFT breast total/simple mastectomy with bilateral TE reconstruction. Surgical Path: right breast IDC, grade-1, 3mm max dimension + DCIS(grade-2), 1(ILC)/2 SLN's, all margins negative for invasive carcinoma but DCIS + at superior margin. Final staging pT1aN0(i+). Patient is going to have further margin excision (discussed with Dr aTylor), no indication for PMRT. 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 Final recommendations will be communicated back to the requesting physician by way of the shared medical record, or letter to requesting physician via [place] mail. I reviewed Ms Gomes with her today in clinic. She is doing fine and is current post surgery. She is convalescing well. No issues reported. Her Surgical path is described above. The patient has been referred to us for consideration of radiotherapy options in the management of her disease. Prior radiation therapy or collagen vascular disease: No Any implanted or external electric devices? Yes : TE status: Patient states there is no possibility she is at this time. Educated on risks of during treatment. ALLERGIES Allergen Reactions Penicillins Anaphylaxis PAST MEDICAL HISTORY Diagnosis Date Acne On spironolactone Anxiety Dysmenorrhea Dyspareunia Hypothyroidism also known nodule Migraines Papanicolaou smear of cervix with low grade squamous intraepithelial lesion (LGSIL) 02/24/2006 PMH - PAST MEDICAL HISTORY OF bipolar, borderline personality disorder PAST SURGICAL HISTORY Procedure Laterality Date PAST SURGICAL HISTORY OF tonsils PAST SURGICAL HISTORY OF DANDC 2017 and 2020 FAMILY HISTORY Problem Relation Age of Onset other (multiple myeloma) Paternal Aunt Hypertension Maternal Grandmother Cancer Maternal Grandfather Lung cancer, history of tobacco use Esophageal Cancer Paternal Grandmother Heart Paternal Grandfather Stroke Paternal Grandfather Anesthesia Problems No Family History CHUTE WORKER HISTORY: OB History Gravida0 Para0 Term0 Preterm0 AB0 Living0 SAB0 IAB0 Ectopic0 Multiple0 Live Births0 Menarche age: 10 Menopausal status: pre-menopausal Social History Tobacco Use Smoking status: Never Smokeless tobacco: Former Types: Chew Quit date: 2009 Tobacco comments: For 3 years. Quit in 2009 Substance Use Topics Alcohol use: Yes Comment: monthly/social 2-3 drink mixed drink Drug use: No Occupation: [employer] Residence: [place] REVIEW OF SYSTEMS: GENERAL: feeling well without fatigue, no recent change in weight PHYSICAL EXAM: VS: BP 126/82 Pulse 86 Temp 36.8 ?C (98.2 ?F) (Oral) Resp 20 Wt 73.3 kg (161 lb 9.6 oz) LMP 06/22/2024 (Exact Date) SpO2 100% BMI 28.63 kg/m? KPS: 90 General Appearance: Alert and oriented. No acute distress. HEENT: NCAT. Sclera anicteric. PERRL. EOMI. Neck: Normal ROM. No palpable cervical or supraclavicular adenopathy. Chest: No respiratory distress. Lungs clear to auscultation bilaterally. Abdomen: Soft. Nontender. Nondistended. Musculoskeletal: No edema. Normal ROM in extremities. No bone or spine tenderness. Neuro: Speech fluent. Gait normal. No focal deficits. Skin: No rashes noted Lymphatics: No palpable lymphadenopathy. Breast: bilateral breasts are surgically absent, with healed incisions and tissue expanders in place, and no palpable masses Participation of a fellow, resident, medical student, or advanced practice provider student in performing the sensitive examination was discussed with the patient or authorized customer success representative. The patient or authorized customer success representative has agreed to proceed with the sensitive examination. ASSESSMENT AND PLAN: I personally interviewed and examined the patient, following this, I confirmed and edited the history documented. I also reviewed the pathology, radiology and labs. In summary, 43 year old female, S/p RIGHT breast skin-sparing mastectomy, ipsila (more content not included)... Normal [facility] Office Visit (BRCRCA ) YOLANDE GOMES ([id number]) 1980 F Date Time Provider Department 06/23/24 1:00 PM KARY RIZZO During your visit today, we recorded the following information about you: Temperature Pulse Respiration Blood pressure 98.2 degrees 86/minute 20/minute 126/82 Weight Last Period 73.3 kg 06/22/24 Kary Rizzo APRN.CASE AIDE 06/29/2024 1:01 PM Addendum [facility] [place] Department of Breast Surgical Oncology [facility] POST OPERATIVE FOLLOW-UP SERVICE DATE: 06/23/24 SURGERY DATE: 06/16/2024 POSTOPERATIVE VISIT #1 SUBJECTIVE: Yolande Gomes, 43 year old year old female presents today for her first post operative appointment status post Right Breast Mastectomy, Right Axillary [place] lymph node biopsy, Left Breast prophylactic Mastectomy with Dr. Taylor in combination with Dr. Messina for bilateral tissue bundler seasonal greenery placement. She is overall doing well postoperatively. She endorses some pain and discomfort especially with movement. She was given oxycodone postoperatively and is still taking them every 12 hours. 0 refills were given. She denies any erythema, discharge from the incision, or significant swelling. She denies fever, chills, night sweats, chest pain, shortness of breath, nausea, vomiting, diarrhea, constipation, or urinary changes. Her drains are both above 30ccs PATHOLOGY REPORT: SURGICAL PATHOLOGY: [id number] Order: [id number] Collected 06/16/2024 12:48 PM Status: Final result Dx: Ductal carcinoma in situ (DCIS) of ri... Test Result Released: No (scheduled for 06/27/2024 1:47 PM) 0 Result Notes Component FINAL DIAGNOSIS A. Right breast, mastectomy: - Invasive ductal carcinoma, [place] grade I, measuring 3 mm in greatest dimension (please see synoptic report and Comment I). - Ductal carcinoma in-situ (DCIS), cribriform and papillary types, of intermediate nuclear grade. - Atypical ductal hyperplasia (ADH). - Microcalcifications in DCIS. - Biopsy site changes and biopsy clips (x3) identified. - Multiple levels examined. B. Right axillary sentinel lymph node #1, hot not blue, #40,000: - Isolated tumor cells in one of one lymph node examined. - Please see Comment II. C. Right axillary sentinel lymph node #2, not hot not blue, palpable: - One lymph node; negative for metastatic carcinoma (0/1). - Please see Comment III. D. Left breast, mastectomy: - Unremarkable breast tissue and skin. E. Right areolar skin from right breast mastectomy, adipose tissue: - Skin with intradermal nevus. [facility] 06/22/24 at 1347 EDT BREAST MARKERS: [id number] Order: [id number] - Reflex for Order [id number] Collected 06/16/2024 12:48 PM Status: Final result Dx: Ductal carcinoma in situ (DCIS) of ri... Test Result Released: No 0 Result Notes Component ER status Positive (greater than 10%) ER % staining 95 Estrogen Receptor (Staining Intensity) Strong Estrogen Receptor Internal Control Present and Stained as Expected Estrogen Receptor External Control Present and Stained as Expected MD status Positive (greater than or equal to 1%) MD % staining 99 Progesterone Receptor (Staining Intensity) Strong Progesterone Receptor Internal Control Present and Stained as Expected Progesterone Receptor External Control Present and Stained as Expected HER2 IHC Status Equivocal for HER2 Overexpression HER2 IHC Score 2+ Uniform Intense Complete Membrane Staining <1 Tumor Type Primary Invasive Breast Carcinoma Breast Tumor Grade Grade 1 [facility] The sensitive examination was discussed with the Patient or Patient's Authorized Water Service Supervisor. As applicable, any other physician, advance practice provider, medical student, or other health professional student that will be observing or involved in the sensitive examination for educational or training purposes was discussed with the Patient or Authorized Water Service Supervisor. The Patient or Authorized Water Service Supervisor has agreed to proceed with the sensitive examination. (Sensitive examination includes inspection and/or palpation of the breasts, pelvis, prostate and anorectal regions) OBJECTIVE: PHYSICAL EXAM: Bilateral breast incisions are healing well with intact overlying steri strips. Intact underlying tissue expanders. Minor ecchymosis. No surrounding erythema, edema, or areas of fluctuance. SUSY drains x2 with SSG output. POST OPERATIVE STATUS: POST OPERATIVE STATUS OR RIGHT BREAST: Uncomplicated post-operative course, POST OPERATIVE STATUS OR LEFT BREAST: Uncomplicated post-operative course, Assessment ASSESSMENT: Yolande Valle Eliseo, 43 year old year old female presents today for her first post operative appointment status post Right Breast Mastectomy, Right Axillary S (more content not included)... [facility] ANES POSTPROC EVALon 025 ANES POSTPROC EVAL HNO ID: [id number] Author: KATHY CHAVEZ MD Service: ? Author Type: Anesthesiologist Type: Anesthesia Postprocedure Evaluation Filed: 06/16/2024 17:21 Note Text: POST ANESTHESIA EVALUATION NOTE : 1980 Procedure Summary Date: 06/16/24 Room / Location: [address] PEDIATRIC SURGERY Anesthesia Start: 1129 Anesthesia Stop: 1511 Procedures: MASTECTOMY SIMPLE BILATERAL (Bilateral: Breast) INTRAOPERATIVE ID OF SENTINEL LYMPH NODE(S) INCL'D INJECTION OF NON-RAD DYE WHEN PERFORMED (Right: Axilla) BIOPSY NODE SENTINEL AXILLARY (Right: Axilla) TISSUE PLASTER TENDER PLACEMENT IN BREAST RECONSTRUCTION BILATERAL (Bilateral: Breast) IMPLANTATION OF BIOLOGIC IMPLANT FOR SOFT TISSUE REINFORCEMENT (Bilateral: Breast) Diagnosis: Ductal carcinoma in situ (DCIS) of right breast (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]) Surgeons: Pradeep Taylor MD; Isiah Messina MD Responsible Provider: Kathy Chavez MD Anesthesia Type: general ASA Status: 3 Anesthesia Type: general Airway Type: LMA Last Vitals Vitals Value Taken Time BP 116/65 06/16/24 1700 Temp 36.6 ?C (97.9 ?F) 06/16/24 1645 Pulse 85 06/16/24 1711 Resp 12 06/16/24 1700 SpO2 93 % 06/16/24 1711 Vitals shown include unfiled device data. Post Anesthesia Patient Status Patient Evaluation: PACU. PACU/ICU Patient Condition: stable. Anticipated Disposition: phase 2 then home. Neurological Status: aware and responsive. Pulmonary Status: breathing comfortably on room air Airway Control: returned to baseline unsupported. Cardiovascular Status: stable. Pain Management: clinically adequate Postoperative Hydration: acceptable. Intraoperative Events: no significant anesthesia events Post Operative Nausea/Vomiting Status: no significant post operative nausea or vomiting Recommendation: further care per PACU/ICU/floor team. Anesthesia Observations No Documentation SIGNATURE: Kathy Chavez MD PATIENT NAME: Yolande Gomes DATE: June 16, 2024 TIME: 5:21 PM CSN: [id number] [facility] ANES PRE-OPon 06-16-2024 ANES PRE-OP HNO ID: [id number] Author: KATHY CHAVEZ MD Service: ? Author Type: Anesthesiologist Type: Anesthesia Preprocedure Evaluation Filed: 06/16/2024 10:30 Note Text: ANESTHESIOLOGY DAY OF SURGERY NOTE : 1980 Procedure Information Date/Time: 06/16/24 1145 Procedures: MASTECTOMY SIMPLE BILATERAL (Bilateral: Breast) INTRAOPERATIVE ID OF SENTINEL LYMPH NODE(S) INCL'D INJECTION OF NON-RAD DYE WHEN PERFORMED (Right: Axilla) BIOPSY NODE SENTINEL AXILLARY (Right: Axilla) TISSUE PLASTER TENDER PLACEMENT IN BREAST RECONSTRUCTION BILATERAL (Bilateral: Breast) IMPLANTATION OF BIOLOGIC IMPLANT FOR SOFT TISSUE REINFORCEMENT (Bilateral: Breast) Location: [address] PEDIATRIC SURGERY Surgeons: Pradeep Taylor MD; Isiah Messina MD Estimated body mass index is 28.63 kg/m? as calculated from the following: Height as of 06/15/24: 160 cm (5' 3). Weight as of 06/15/24: 73.3 kg (161 lb 9.6 oz). Most recent hematocrit and potassium results: Hematocrit 44.0 05/31/2024 Potassium 4.5 05/31/2024 Relevant Problems CARDIO (+) Migraines ENDO (+) Hypothyroidism, acquired NEURO-PSYCH (+) Migraines I - PHYSICAL EVALUATION AIRWAY Patient intubated: No. Tracheostomy tube not present Mallampati: II. TM distance: >3 FB. Neck ROM: full ROM without neurological symptoms. Mouth opening: adequate. Short neck: no. Thick neck: no Hutchison present: no DENTAL Dental findings: teeth intact. II - ANESTHESIA PLAN ASA Score: 3 Anesthetic Plan: general Airway type: LMA The patient is not a current smoker. NPO Status: adequate Beta [place] Monitoring Plan Monitoring plan: standard ASA. Post Procedure Analgesic Plan Postoperative analgesic plan: multimodal analgesia. Informed Consent Anesthetic risks, benefits, alternatives, personnel and consent discussed: yes. Patient / Responsible Constitution Party agrees to proceed: yes Patient / Surrogate agrees to blood products: Yes Significant changes in the patient condition since the History and Physical, not otherwise documented in primary service progress note: no. Potential Anesthesia issues that may suggest increased risk of complications or contraindication to planned procedure: none. Vitals Value Taken Time BP 139/76 06/16/24 0930 Pulse 95 06/16/2430 Resp 14 06/16/24929 Temp 36.8 ?C (98.2 ?F) 06/16/24929 SpO2 95 % 06/16/24929 Facility-Administered Medications as of 06/16/2024 Medication Dose Route Frequency lidocaine (PF) 10 mg/mL (1 %) 1-2 mg injection (XYLOCAINE) 0.1-0.2 mL INTRADERMAL PRN Or lidocaine 1% 0.25 mL subcutaneous j-tip syringe (XYLOCAINE) 0.25 mL SUBCUTANEOUS PRN lactated ringers iv infusion 5-30 mL/hr INTRAVENOUS CONTINUOUS NaCl 0.9% iv flush bag 20 mL INTRAVENOUS PRN clindamycin iv piggyback 900 mg in D5W 50 mL (CLEOCIN) 900 mg INTRAVENOUS Pre-Op Once scopolamine (delivers 1 mg over 3 days) 1 patch (TRANSDERM-SCOP) 1 patch TRANSDERMAL q 72 HR And [START ON 06/19/2024] scopolamine - REMOVE PATCH OTHER q 72 HR And scopolamine - VERIFY patch OTHER q 8 H Outpatient Medications as of 06/16/2024 Medication Sig FLUoxetine (PROZAC) 40 mg capsule Take 50 mg by mouth once daily. levothyroxine (SYNTHROID) 100 mcg tablet Take 1 tablet on 5 days of the week, skip on 2 days of the week (may be Friday and Friday) eletriptan (RELPAX) 40 mg tablet TAKE 1 TABLET NEEDED FOR MIGRAINE HEADACHE (SEE ADMINISTRATION INSTRUCTIONS) AT THE ONSET OF MIGRAINE HEADACHE (1 IN 24 HOURS) Magnesium 200 mg tab Take by mouth. SEMAGLUTIDE, WEIGHT LOSS, SUBCUTANEOUS Inject 70 Units subcutaneously one time a week. spironolactone (ALDACTONE) 50 mg tablet I have interviewed and examined the patient. I have reviewed the medical record and/or the pre-anesthesia evaluation, pertinent labs, and test results. This contains updated information obtained within 48 hours of Surgery/Procedure. SIGNATURE: Kathy Chavez MD PATIENT NAME: Yolande Gomes DATE: June 16, 2024 TIME: 10:30 AM CSN: [id number] [facility] BREAST MARKERSon 06-16-2024 AP BIOMARKER DISCLAIMER [facility] Comment on above: Order Comment: Speci men Type: BLOOD SPECIMEN Ordering Facility: [facility] Address: [address] [place] [address] Result Comment: Laboratory Developed Test (LDT) Disclaimer: Performance characteristics of immunohistochemical, immunofluorescent and chromogenic in-situ hybridization tests have been determined by the performing laboratory within [facility]???s Edis Gautam [facility] Pathology and Laboratory Medicine Department ([facility], [facility], [facility], [facility], [facility], [facility], or [facility]) in a manner consistent with CLIA requirements. One or more of these tests have not been cleared or approved by the FDA. [facility] is regulated under CLIA as qualified to perform high-complexity testing. These tests are used for clinical purposes. They should not be regarded as investigational or for research. Positive and negative controls stain appropriately. Performed By: #### M ICRO #### [facility] CLIA [id number] [address] [place] [address] [place] AP BLOCK ID [id number] [facility] Comment on above: Order Comment: Speci men Type: BLOOD SPECIMEN Ordering Facility: [facility] [place] Address: [address] [place] [address] Performed By: #### M ICRO #### [facility] CLIA [id number] [address] [place] [address] [place] ASCO/CAP GUIDELINES FOR FIXATION MET Yes [facility] Comment on above: Order Comment: Speci men Type: BLOOD SPECIMEN Ordering Facility: [facility] [place] Address: [address] [place] [address] Performed By: #### M ICRO #### [facility] CLIA [id number] [address] [place] [address] OF [place] BIOMARKER INTERPRETATION COMMENT AND REFERENCE RANGE [facility] Comment on above: Order Comment: Lacey emanuel Type: BLOOD SPECIMEN Ordering Facility: [facility] [place] Address: [address] [place] [address] Result Comment: Refe rence Range for Hormone Receptors: Staining for MD of greater than or equal to 1% of the tumor cells is considered positive. Staining for ER of 1-10% of the tumor cells is considered low positive. Staining for ER of greater than 10% of the tumor cells is considered positive. Staining for ER or MD of less than 1% is considered negative. Reference Ranges for HER2 Immunohistochemistry: Positive (3+): Complete, intense circumferential membrane staining in greater than 10% of tumor cells. Equivocal (2+): Weak to moderate complete membrane staining observed in greater than 10% of tumor cells. Negative (1+): Incomplete, faint membrane staining in greater than 10% of tumor cells. Negative (0): No staining or incomplete faint membrane staining in less than or equal to 10% of tumor cells. Interpretation Comments: Consideration of follow-up testing for HER2 (ERBB2) status by fluorescence in situ hybridization (FISH) for all equivocal (2+) results is recommended and will be ordered as a reflex test if FISH was not a testing methodology already employed. Note for ER low results. For malignancy with a low level (1%-10%) of ER expression by immunohistochemistry, there are limited data on the overall benefit of endocrine therapies for a patient with low level (1%-10%) ER expression, but they currently suggest possible benefits, so patients are considered eligible for endocrine treatment. Some data indicate that invasive cancers with these results are heterogeneous in behavior and biology and often have gene expression profiles more similar to ER-negative cancers. Performed By: #### M ICRO #### [facility] CLIA [id number] [address] [place] [address] OF [place] BIOMARKER METHOD Normal [facility] Comment on above: Order Comment: Speci men Type: BLOOD SPECIMEN Ordering Facility: [facility] [place] Address: [address] [place] [address] Result Comment: Estr ogen Receptor: Food and Drug Administration (FDA) cleared: [employer], [place], [place] Primary Antibody: SP1 Progesterone Receptor: FDA cleared: [employer], [place], [place] Primary Antibody: IE2 HER2 (ERBB2) by IHC: FDA cleared: [employer], [place], [place] Primary Antibody:4B5 The hormone receptor tests were performed and reported in accordance with the guidelines approved by the [place] Society of Clinical Oncologists and the College of [place] Pathologists. Emma PUENTES, et al. Estrogen and Progesterone Receptor Testing in Breast Cancer: [place] Society of Clinical Oncologists and the College of [place] Pathologists Guideline Update. Arch Pathol Lab Med. 2019;144(5):545-563. PMID: [id number]. The hormone receptor assays have been internally validated on decalcified tissues (for [facility] only). Estrogen and progesterone receptor results are valid if tissue was processed according to ASCO/CAP guidelines. Antibody and Detection System: [place]'s Pathway anti-HER2 rabbit monoclonal antibody (clone 4B5), [place] Confirm anti-estrogen receptor rabbit monoclonal antibody (clone SP1) and [place] anti-progesterone receptor rabbit monoclonal antibody (clone IE2) detected with the [place] UltraView Univeral DAB Detection Kit (indirect biotin-free detection), [employer], [place], [place]. Control Slides: Cell line controls with high, equivocal, low, and negative HER2 protein expression, along with known positive control tissue and the patient's tissue, are evaluated for HER2 expression. The HER2 immunohistochemistry assay was developed, validated, scored, and reported in accordance with the guidelines approved by the [place] Society of Clinical Oncologists and the College of [place] Pathologists. Guerda GRAHAM et al. Arch Pathol Lab Med. 2018;1379(9) The HER2 assay has not been validated on decalcified tissues. Given the possibility of false negative results on decalcified specimens, results should be interpreted with caution. Performed By: #### M ICRO #### [facility] CLIA [id number] [address] [place], [place] [address] [place] [address] [place] BREAST TUMOR GRADE Grade 1 Normal [facility] Comment on above: Order Comment: Speci men Type: BLOOD SPECIMEN Ordering Facility: [facility] [place] Address: [address] [id number] Performed By: #### M ICRO #### [facility] CLIA [id number] [address] [address] [place] [facility] CASE NUMBER INVASIVE [id number] Normal [facility] Comment on above: Order Comment: Speci men Type: BLOOD SPECIMEN Ordering Facility: [facility] [place] Address: [address] [id number] Performed By: #### M ICRO #### [facility] CLIA [id number] [address] [place] [address] [place] COLD ISCHEMIA TIME <1 Hour Normal [facility] Comment on above: Order Comment: Speci men Type: BLOOD SPECIMEN Ordering Facility: [facility] [place] Address: [address] [place], [place] [id number] Performed By: #### M ICRO #### [facility] CLIA [id number] [address] [place] [address] [place] ESTROGEN RECEPTOR (% TUMOR STAINING) 95 Normal [facility] Comment on above: Order Comment: Speci men Type: BLOOD SPECIMEN Ordering Facility: [facility] [place] Address: [address] [id number] Performed By: #### M ICRO #### [facility] CLIA [id number] [address] [id number] [place] ESTROGEN RECEPTOR (STAINING INTENSITY) Strong Normal [facility] Comment on above: Order Comment: Speci men Type: BLOOD SPECIMEN Ordering Facility: [facility] [place] Address: [address] [id number] Performed By: #### M ICRO #### [facility] CLIA [id number] [address] [id number] [place] ESTROGEN RECEPTOR EXTERNAL CONTROL Present and Stained as Expected Normal [facility] Comment on above: Order Comment: Speci men Type: BLOOD SPECIMEN Ordering Facility: [facility] [place] Address: [address] [place] [address] Performed By: #### M ICRO #### [facility] CLIA [id number] [address] [place] ESTROGEN RECEPTOR INTERNAL CONTROL Present and Stained as Expected Normal [facility] Comment on above: Order Comment: Speci men Type: BLOOD SPECIMEN Ordering Facility: [facility] [place] Address: [address] [place] [address] Performed By: #### M ICRO #### [facility] CLIA [id number] [address] [place] [address] [place] ESTROGEN RECEPTOR STATUS (INVASIVE) Positive Normal [facility] Comment on above: Order Comment: Speci men Type: BLOOD SPECIMEN Ordering Facility: [facility] [place] Address: [address] [place] [address] Performed By: #### M ICRO #### [facility] CLIA [id number] [address] [place] [address] [place] FINAL PERFORMING LAB Normal [facility] Comment on above: Order Comment: Speci men Type: BLOOD SPECIMEN Ordering Facility: [facility] [place] Address: [address] [place] [address] Result Comment: Diag nostic interpretation performed at: [facility], [address] [place], [place] [id number] CLIA# [id number] Overlock Sleeve Setter: Carlos Finnegan MD Electronically signed out by: Jovani Claudio MD Performed By: #### M ICRO #### [facility] CLIA [id number] [address] [place] [address] [place] FIXATIVE Formalin, 10% Neutra l Buffered Normal [facility] Comment on above: Order Comment: Speci men Type: BLOOD SPECIMEN Ordering Facility: [facility] [place] Address: [address], [place] [address] Performed By: #### M ICRO #### [facility] CLIA [id number] [address] [id number] [place] HER2 SCORE 2+ Normal [facility] Comment on above: Order Comment: Speci men Type: BLOOD SPECIMEN Ordering Facility: [facility] [place] Address: [address] [id number] Performed By: #### M ICRO #### [facility] CLIA [id number] [address] [id number] [place] HER2 STATUS (INVASIVE) Equivocal for HER2 Overexpression Normal [facility] Comment on above: Order Comment: Speci men Type: BLOOD SPECIMEN Ordering Facility: [facility] [place] Address: [address] [id number] Performed By: #### M ICRO #### [facility] CLIA [id number] [address] [place] [address] [place] PROGESTERONE RECEPTOR (% TUMOR STAINING) 99 Normal [facility] Comment on above: Order Comment: Speci men Type: BLOOD SPECIMEN Ordering Facility: [facility] [place] Address: [address] [id number] Performed By: #### M ICRO #### [facility] CLIA [id number] [address] [place], [place] [id number] [place] PROGESTERONE RECEPTOR (STAINING INTENSITY) Strong Normal [facility] Comment on above: Order Comment: Speci men Type: BLOOD SPECIMEN Ordering Facility: [facility] [place] Address: [address] [place] [address] Performed By: #### M ICRO #### [facility] CLIA [id number] [address] [place], [place] [id number] [place] PROGESTERONE RECEPTOR EXTERNAL CONTROL Present and Stained as Expected Normal [facility] Comment on above: Order Comment: Speci men Type: BLOOD SPECIMEN Ordering Facility: [facility] [place] Address: [address], [place] [address] Performed By: #### M ICRO #### [facility] CLIA [id number] [address] [id number] [place] PROGESTERONE RECEPTOR INTERNAL CONTROL Present and Stained as Expected Normal [facility] Comment on above: Order Comment: Speci men Type: BLOOD SPECIMEN Ordering Facility: [facility] [place] Address: [address] [id number] Performed By: #### M ICRO #### [facility] CLIA [id number] [address] [id number] [place] PROGESTERONE RECEPTOR STATUS (INVASIVE) Positive Normal [facility] Comment on above: Order Comment: Speci men Type: BLOOD SPECIMEN Ordering Facility: [facility] [place] Address: [address] [place], [place] [id number] Performed By: #### M ICRO #### [facility] CLIA [id number] [address] [place] [address] [place] TOTAL FIXATION TIME >6 and <72 Hours Normal [facility] Comment on above: Order Comment: Speci men Type: BLOOD SPECIMEN Ordering Facility: [facility] [place] Address: [address] [place], [place] [phone] Performed By: #### M ICRO #### [facility] CLIA [id number] [address] [place], [place] [id number] [place] TUMOR TYPE (INVASIVE) Primary Invasive Breast Carcinoma Normal [facility] Comment on above: Order Comment: Speci men Type: BLOOD SPECIMEN Ordering Facility: [facility] [place] Address: [address] [id number] Performed By: #### M ICRO #### [facility] CLIA [id number] [address] [place] [address] [place] UNIFORM INTENSE COMPLETE MEMBRANE STAINING <1 Normal [facility] Comment on above: Order Comment: Speci men Type: BLOOD SPECIMEN Ordering Facility: [facility] [place] Address: [address] [place], [place] [phone] Performed By: #### M ICRO #### [facility] CLIA [id number] [address] [place] [address] [place] WAS SPECIMEN DECALCIFIED No Normal [facility] Comment on above: Order Comment: Speci men Type: BLOOD SPECIMEN Ordering Facility: [facility] [place] Address: [address] [place] [address] Performed By: #### M ICRO #### [facility] CLIA [id number] [address] [place] [address] [place] BRIEF OP NOTon 06-16-2024 BRIEF OP NOT HNO ID: [id number] Author: ISIAH MESSINA MD Service: Plastic Surgery Author Type: Physician Type: Brief Op Note Filed: 06/19/2024 14:50 Note Text: PLASTIC AND RECONSTRUCTIVE SURGERY BRIEF OPERATIVE NOTE LOG ID: [id number] Surgery/Procedure Date: 06/16/2024 Incision/Procedure Start Time: 12:00 PM Incision Close/Procedure End Time: 2:42 PM Surgeon(s)/Proceduralist(s) and Earthmoving Labourer(s): Surgeons and Role: Panel 1: * Pradeep Taylor MD - Primary * Jaimee Bang DO - Assisting * Eliseo Gunn MD - Resident - Assisting Panel 2: * Isiah Messina MD - Primary * Mayi Perea MD - Assisting No Additional Staff Procedure(s): Bilateral immediate breast reconstruction with Tissue bundler seasonal greenery(s) (pre-pectoral plane; filled with 400mL air) with durasorb mesh Anesthesia: General Findings: S/p skin sparing mastectomy, R breast requires NAC removal due to hx nippple discharge R mastectomy 485 gram. L breast 462 gram Estimated Blood Loss: 5 mL for PRS portion Drains: Right Breast: SUSY x1 and Left Breast: SUSY x1 Specimens: ID Type Source Tests Collected by Time Destination A : stitch eller one long lateral one short superior and nipple anterior Tissue Breast, Right, Mastectomy SURGICAL PATHOLOGY Pradeep Taylor MD 06/16/2024 12:48 PM B : #1 right axillary sentinel lymph node hot not blue #40,000 Tissue Lymph Node, Right, [place] SURGICAL PATHOLOGY Pradeep Taylor MD 06/16/2024 1:12 PM C : #2 right axillary sentinel lymph node not hot not blue palpable Tissue Lymph Node, Right, [place] SURGICAL PATHOLOGY Pradeep Taylor MD 06/16/2024 1:15 PM D : stitch eller one long lateral one short superior and nipple anterior Tissue Breast, Left, Mastectomy SURGICAL PATHOLOGY Pradeep Taylor MD 06/16/2024 1:23 PM E : right areolar breast skin from right breast mastectomy Tissue Adipose Tissue SURGICAL PATHOLOGY Pradeep Taylor MD 06/16/2024 2:28 PM Implants: durasorb 20x25 to each side of breast Implant Name Type Inv. Item Serial No. Linter Drier Operator Lot No. LRB No. Used Action EXP TISS SMTH BRST 500CC MV - [id number] [employer] - Tissue EXP TISS SMTH BRST 500CC MV [id number] [employer] Right 1 Implanted EXP TISS SMTH BRST 500CC MV - [id number] [employer] Educator - Tissue EXP TISS SMTH BRST 500CC MV [id number] [employer] Left 1 Implanted Complications: None Pre-Op/Pre-Procedure Diagnosis: acquired surgical absence kelsey breast post kelsey [facility] for R Breast cancer, w R axilla sentinel node bx Post-Op/Post-Procedure Diagnosis: Same Post-operative Plan: Discharge home SIGNATURE: Mayi Perea MD, MPH PATIENT NAME: Yolande Gomes DATE: June 16, 2024 TIME: 2:46 PM PAGER/CONTACT #: [phone] Normal [facility] FISH FOR HER-2on 06-16-2024 FISH FOR HER-2 FISH for HER2 Normal [facility] Comment on above: Order Comment: Speci men Type: BLOOD SPECIMEN Ordering Facility: [facility] [place] Address: [address] [place] [address] Result Comment: Laboratory Accession Number: [id number] Case: [id number] Block/Part ID: [id number] Sample Type: FFPET Sample Description: RIGHT BREAST, MASTECTOMY, invasive carcinoma Received Date: 06/22/2024 Integrated Final HER2 (ERBB2) Status Based on ASCO/CAP 2018 Updated guidelines: NEGATIVE (please see comment) INTERPRETATION: The previously reported HER2 immunohistochemistry (IHC) was equivocal (2+) and fluorescence in situ hybridization (FISH) for HER2 (ERBB2) was performed on the same tissue block which identified the following signal pattern: HER2 (ERBB2)/CEP17 ratio < 2.0 with an average HER2 (ERBB2) signal tumor cell of >/= 4.0 and < 6.0. It is uncertain whether patients with >/= to 4.0 and <6.0 average HER2 (ERBB2) signals/cell and HER2 (ERBB2)/CEP17 ratio <2.0 benefit from HER2 targeted therapy in the absence of protein overexpression (IHC 3+). If the specimen test result is close to the threshold for positive, there is a higher likelihood that repeat testing will result in different results by chance alone. Therefore, when IHC results are not 3+ positive, it is recommended that the sample be considered HER2 negative without additional testing on the same specimen. In this scenario, clinical correlation with other patient factors, pathologic features of the patient's cancer (such as ER expression and tumor grade) and test results from other specimens may be used when selecting appropriate treatments, including chemotherapy and HER2 targeting therapies. HER2 (ERBB2) FISH Result: Number of cells counted: 60 Number of observers: 3 Average HER2 (ERBB2) signal copy number per cell: 4.7 Average CEP17 signal copy number per cell: 3.5 HER2 (ERBB2)/CEP17 ratio: 1.3 Fixative: 10% neutral buffered formalin Fixation Time: >6 and <72 hours Cold Ischemic time: >1 hour, Meets ASCO/CAP guidelines for fixative and fixation times: no These results should be interpreted with caution if the above pre- analytical values do not meet the ASCO/CAP guidelines for tissue fixation and handling. Tissue sections for HER2 (ERBB2) analysis should not be used if cut > 6 weeks prior to testing. Reference ranges (2018 ASCO/CAP guidelines): HER2 (ERBB2) non amplified: HER2(ERBB2)/ CEP 17 ratio < 2.0 with <4.0 HER2 (ERBB2) signals/cell (Group 5) HER2 (ERBB2) amplified: HER2(ERBB2)/ CEP 17 ratio is >/= 2.0 with >/= 4.0 HER2 (ERBB2) signals/cell (Group 1) If the HER2 (ERBB2)/CEP17 ratio >/= 2.0 with average HER2 (ERBB2) <4.0 signals/cell (Group 2), or HER2 (ERBB2)/CEP17 ratio < 2.0 with >/= 6.0 HER2 (ERBB2) signals/cell (Group 3) or HER2 (ERBB2)/CEP17 ratio <2.0 with HER2 (ERBB2) >/= 4.0 and < 6.0 signals/cell (Group 4), a definitive diagnosis will be rendered incorporating the HER2 immunohistochemistry (IHC) concomitant work up. For groups 2 and 4, if the IHC result is 3+, the case is considered HER2 positive. If the IHC result is 0 to 1+, the case is considered HER2 negative. If the IHC is 2+, an additional 20 cells are counted in the FISH assay by an additional observer, blinded to the pervious FISH result, ensuring that the area counted includes the area of invasive carcinoma that was IHC 2+. If reviewing the additional count remains within Groups 2 or 4, then the case is considered negative with a comment. If reviewing the additional count results in a different FISH category, the result is adjudicated per laboratory protocol. For group 3, if the IHC result is 3+, the case is considered HER2 positive. If the IHC result is 0 or 1+, the case is considered HER2 negative. If the IHC is 2+, an additional 20 cells are counted in the FISH assay by an additional observer, blinded to the previous FISH result, ensuring that the area counted includes the area of invasive carcinoma that was IHC 2+. If reviewing the additional count remains within Group 3, then the case is considered positive. If reviewing the additional count results in a different FISH category, the result is adjudicated per laboratory protocol. Nomenclature: nuc brunilda([id number]~5,KXPR0l9~6)[60] METHODOLOGY: HER2 (ERBB2) gene amplification was manually evaluated on paraffin- embedded tissue by interphase fluorescence in situ hybridization (FISH), using a dual color probe set for the HER2 (ERBB2) locus at 17q12 and the centromeric region of chromosome 17 (PathVysion; [place], [place], [place]). The [facility] has validated modifications of the PathVysion kit used for the testing, including the use of Target Retrieval Solution and Proteinase K (Dako ([employer]ilent); [place]) for cell conditioning, and modified probe/target denaturation and hybridization conditions for the assay. Internal and external (amplified and non-amplified) controls are evaluated. The in situ hybridization analysis was performed and correlated with preselected areas of invasi (more content not included)... Performed By: #### M ICRO #### [facility] CLIA [id number] [address] [place] [address] [place] OPERATIVE NOon 06-16-2024 OPERATIVE NO HNO ID: [id number] Author: PRADEEP TAYLOR MD Service: General Surgery Author Type: Physician Type: Operative Report Filed: 06/16/2024 13:40 Note Text: OPERATIVE/PROCEDURE REPORT LOG ID: [id number] SURGERY DATE: 06/16/2024 Incision/Procedure Start Time: 12:00 PM Incision Close/Procedure End Time: Surgeon(s) and Earthmoving Labourer(s): Primary: Pradeep Taylor MD Assisting: Jaimee Bang DO Resident - Assisting: Eliseo Gunn MD No Additional Staff SURGERY/PROCEDURES: RIGHT breast skin-sparing mastectomy, ipsilateral axillary sentinel lymph node biopsy; prophylactic LEFT breast total/simple mastectomy; Right breast Intraoperative specimen radiograph - CPT 19522 Anesthesia: General Breast/Oncologic History: Yolande Gomes is a 43 year old female with a history significant for Hypothyroidism , no family history of breast or ovarian cancer, who presents for an evaluation of a new 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 Rt breast UOQ mid depth at least ADH. Stage 0, [id number]. Procedure Details: After informed consent was obtained, the patient was taken to the operative suite and placed in the supine position on the operating table. A preoperative time out confirming patient name, procedure, laterality, and other pertinent information was completed. After general anesthesia was achieved, with sequential compression devices in place , IV antibiotics were given. The patient's arms were placed at 90 degrees and secured. Bony prominences were padded per protocol. The patient's bilateral BREAST, AXILLA, and ARMs were prepped and draped in the standard sterile fashion. Following review of preoperative clinical information including pathology, 3 cc of lymphazurin were injected intraparenchymally in the breast retroareolar position and massaged for 5 minutes. The patient was then prepped and draped in the usual sterile fashion. A surgical time-out was performed again confirming patient name, procedure, laterality, and other pertinent information. A LEFT breast elliptical incision was then carried out and skin flaps were raised superiorly to the clavicle, medially to the lateral border of the sternum, inferiorly to the inframammary crease, and laterally to the latissimus dorsi. Within the axilla, dissection was continued to and through the axillary investing fascia. The breast was then removed from top to bottom, medial to lateral, including pectoralis fascia after clipping larger venous branches, and cauterizing smaller ones. The breast was marked short stitch superior and long stitch lateral and sent to pathology. A radiograph was note required as this was the prophylactic side. Attention was then turned to the RIGHT breast, and an elliptical incision was then carried out and skin flaps were raised superiorly to the clavicle, medially to the lateral border of the sternum, inferiorly to the inframammary crease, and laterally to the latissimus dorsi. Within the axilla, dissection was continued to and through the axillary investing fascia. The nodes were excised after clipping of afferent/ efferent lymphatics. [place] Node #1 was hot, count 40,000, and not blue. [place] node #2 was not hot, palpable, not blue. No residual blue dye and no grossly abnormal palpable node was noted. Background activity < 10%. The nodes were sent for permanent. The breast was then removed from top to bottom, medial to lateral, including pectoralis fascia after clipping larger venous branches, and cauterizing smaller ones. The breast was marked short stitch superior and long stitch lateral and sent for radiograph, which confirmed that the areas of concern and the presence of the biopsy clip. Both cavities were irrigated with warm saline. Once hemostasis was complete and irrigation was clear, plastic surgery was called for their portion of the case. Please see plastic surgery operative note for their portion of the case. The patient was brought to the recovery room awake and in stable condition. All sponge, needle, and, instrument counts were correct at the end of the procedure. I was present and scrubbed for the entire duration of the procedure. Commission on Cancer - Standard 5.4: Axillary Dissection for Breast Cancer [place] Node Biopsy for Breast Cancer - Right Operation performed with curative intent. Yes Tracer(s) used to identify sentinel nodes in the upfront surgery (non-neoadjuvant) setting (select all that apply). Dye and Radioactive tracer Tracer(s) used to identify sentinel nodes in the neoadjuvant setting (select all that apply). N/A All nodes (colored or non-colored) present at the end of a dye-filled lymphatic channel were removed. Yes All significantly radioactive nodes were removed. Yes All palpably suspicious nodes were removed. Yes Biopsy-proven positive nodes marked with clips prior to chemotherapy wer (more content not included)... [facility] OPERATIVE NO HNO ID: [id number] Author: ISIAH MESSINA MD Service: Plastic Surgery Author Type: Physician Type: Operative Report Filed: 06/20/2024 21:12 Note Text: [facility] - Operative Report [address] [place] [address] [place] YOLANDE GOMES : 1980 AGE: 43. 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 CSN NUMBER: [id number] DATE OF SURGERY/PROCEDURE: 06/16/2024 INCISION/PROCEDURE START TIME: 12:00 p.m. INCISION CLOSE/PROCEDURE END TIME: 02:42 p.m. PREOPERATIVE DIAGNOSIS: Acquired surgical absence, bilateral breasts, status post bilateral skin-sparing mastectomy for right breast cancer with right axillary sentinel node biopsy. POSTOPERATIVE DIAGNOSIS: Acquired surgical absence, bilateral breasts, status post bilateral skin-sparing mastectomy for right breast cancer with right axillary sentinel node biopsy. SURGEON: Isiah Messina M.D. ECONOMIC ADVISER: Dr. Mayi Perea. I performed the entire procedure with the assistance of Dr. Perea. SURGERY/PROCEDURE: Bilateral breast reconstruction with tissue bundler seasonal greenery placement in prepectoral positions with use of matrix support 20x25 cm (500 cm2) on each side of the breast bilaterally. ANESTHESIA: General. DRAINS: A #15 round drain to each side of the breast. Tissue bundler seasonal greenery placed for the patient is Abbvie 133 mV 500 mL filled with 400 mL of air on each side of the breast. The patient also has synthetic matrix support 20x25 cm (Durasorb). SPECIMENS: Left breast mastectomy 462 g and right breast mastectomy 485 g. ESTIMATED BLOOD LOSS: 25 mL. COMPLICATIONS: None. INDICATIONS FOR SURGERY: The patient with a diagnosis of right breast cancer with nipple discharge and therefore the patient indicated to have a nipple-areolar complex removal along with the right breast mastectomy as a skin sparing mastectomy. A similar fashion designed to the contralateral breast. Options of reconstruction discussed. The patient would like to proceed with initial reconstruction with tissue bundler seasonal greenery placement and placement in prepectoral position with use of matrix support also discussed, consented and proceeded with surgery. Planned surgery, risk, benefit, alternative, indication, limitation, possible complication, expected result, recovery discussed, consented, and proceeded with surgery. DESCRIPTION OF PROCEDURE: The patient marked in the preoperative holding area along with Dr. Taylor and the patient proceeded to the operating room. [place] protocol, planned surgery, risk, benefit, alternative, indication, limitation, possible complication, expected result, recovery discussed and completed along with universal protocol. The patient placed under general anesthesia, prepped and draped in the usual sterile fashion and proceeded with bilateral skin-sparing mastectomy. Once that is completed, bilateral breast pocket was then measured and examined to fit with a size 500 mL of tissue bundler seasonal greenery. Bilateral breast pockets infiltrated with local anesthetic and irrigated with Betadine and antiseptic irrigation. The tissue bundler seasonal greenery was placed in prepectoral position on each side of the breast, the tissue bundler seasonal greenery of 500 mL, but filled with 400 mL of air. This was then secured in place with the matrix support 20x25 cm on each side of the breast, anchored with 2-0 PDS, then 2-0 Vicryl suture on each side of the breast. A #15 round drain placed to each side of the breast and anchored with 3-0 nylon suture. Deep subcutaneous tissue closed with 2-0 Vicryl suture followed with placement of layered closure with 3-0 Monocryl and 4-0 Monocryl suture. Similar fashion performed on the contralateral breast. The patient then placed in surgical dressing. Isiah Messina M.D. RD:[id number] /[id number] [facility] Pathology biopsy report Daniel (Tiss)on 06-16-2024 AP DISCLAIMER [facility] Comment on above: Order Comment: Speci men Type: BLOOD SPECIMEN Ordering Facility: [facility] [place] Address: [address] [place] [address] Result Comment: Cristobal Gomez Test (LDT) Disclaimer: Performance characteristics of immunohistochemical, immunofluorescent, and chromogenic in-situ hybridization tests have been determined by the performing laboratory within [facility]'s [facility] Pathology and Laboratory Medicine Department ([facility], [facility], [facility], [facility], [facility], [facility], or [facility]) in a manner consistent with CLIA requirements. One or more of these tests may not have been cleared or approved by the FDA. [facility] is regulated under CLIA as qualified to perform high-complexity testing. These tests are used for clinical purposes. These should not be regarded as investigational or for research. Positive and negative controls stain appropriately. Performed By: #### M ICRO #### [facility] CLIA [id number] [address] [place] [address] [place] BLOCK FOR ADDITIONAL BIOMARKERS/MOLECULAR STUDIES A11 [facility] Comment on above: Order Comment: Speci emanuel Type: BLOOD SPECIMEN Ordering Facility: [facility] [place] Address: [address] [place] [address] Performed By: #### M ICRO #### [facility] CLIA [id number] [address] [place] [address] [place] CASE REPORT [facility] Comment on above: Order Comment: Lacey castellanos Type: BLOOD SPECIMEN Ordering Facility: [facility] [place] Address: [address] [place] [address] Result Comment: Surg [facility] Pathology Report Case: [id number] Authorizing Provider: Pradeep Taylor MD Collected: 06/16/2024 01:12 PM Ordering Location: Admitting Received: 06/16/2024 01:54 PM Pathologist: Jovani Claudio MD Specimens: A) - Breast, Right, Mastectomy, stitch eller one long lateral one short superior and nipple anterior B) - Lymph Node, Right, [place], #1 right axillary sentinel lymph node hot not blue #40,000 C) - Lymph Node, Right, [place], #2 right axillary sentinel lymph node not hot not blue palpable D) - Breast, Left, Mastectomy, stitch eller one long lateral one short superior and nipple anterior E) - Adipose Tissue, right areolar breast skin from right breast mastectomy Performed By: #### M ICRO #### [facility] CLIA [id number] [address] [place] [address] [place] CLINICAL HISTORY Normal [facility] Comment on above: Order Comment: Speci men Type: BLOOD SPECIMEN Ordering Facility: [facility] [place] Address: [address] [place] [address] Result Comment: Pre- op diagnosis: 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 B reast biomarkers (ER, PgR, and HER2) are pending, the results of which will be reported separately. II. Immunohistochemical stain AE1/3 was performed and highlights isolated tumor cells, supportive of the above interpretation. III. Immunohistochemical stain for AE1/3 was performed and is negative, supportive of the above interpretation. Select slides of this case were reviewed with Dr Marcell Buckley of the [facility] Breast Pathology Service, who concurs with the above diagnosis of invasive carcinoma and margin assessment for Part A. The results of this case were discussed with Dr Pradeep Taylor of the [facility] Department of General Surgery via telephone on 06/22/2024 at 1339. [facility] 06/22/24 Performed By: #### M ICRO #### [facility] CLIA [id number] [address] [place] [address] STATES OF [facility] FINAL DIAGNOSIS [facility] Comment on above: Order Comment: Speci men Type: BLOOD SPECIMEN Ordering Facility: [facility] [place] Address: [address] [place] [address] Result Comment: A. R ight breast, mastectomy: - Invasive ductal carcinoma, Islesford grade I, measuring 3 mm in greatest dimension (please see synoptic report and Comment I). - Ductal carcinoma in-situ (DCIS), cribriform and papillary types, of intermediate nuclear grade. - Atypical ductal hyperplasia (ADH). - Microcalcifications in DCIS. - Biopsy site changes and biopsy clips (x3) identified. - Multiple levels examined. B. Right axillary sentinel lymph node #1, hot not blue, #40,000: - Isolated tumor cells in one of one lymph node examined. - Please see Comment II. C. Right axillary sentinel lymph node #2, not hot not blue, palpable: - One lymph node; negative for metastatic carcinoma (0/1). - Please see Comment III. D. Left breast, mastectomy: - Unremarkable breast tissue and skin. E. Right areolar skin from right breast mastectomy, adipose tissue: - Skin with intradermal nevus. [facility] 06/22/24 at 1347 EDT Performed By: #### M ICRO #### [facility] CLIA [id number] [address] [place] [address] [place] FINAL PERFORMING LAB Normal [facility] Comment on above: Order Comment: Speci men Type: BLOOD SPECIMEN Ordering Facility: [facility] [place] Address: [address] [place] [address] Result Comment: Diag nostic interpretation performed at: [facility], [address] [place] [address] CLIA# [id number] Overlock Sleeve Setter: Carlos Finnegan MD Performed By: #### M ICRO #### [facility] CLIA [id number] [address] [place] [address] [place] GROSS DESCRIPTION Normal [facility] Comment on above: Order Comment: Speci men Type: BLOOD SPECIMEN Ordering Facility: [facility] [place] Address: [address] [place] [address] Result Comment: A. B reast, Right, Mastectomy Received in formalin labeled breast mastectomy right is a right simple mastectomy specimen weighing 490 g and measuring 15 (superior to inferior) x 15 (medial to lateral) x 4.5 cm (anterior to posterior). The specimen is oriented, per the requisition, as short suture eller the superior margin and long suture eller the lateral margin. There are no segments of muscle attached to the deep surface. There is an unremarkable excision of skin on the radial margin measuring 9 (medial to lateral) x 2 cm (superior to inferior). The unremarkable nipple areolar complex measures 2.5 cm in greatest diameter. The everted nipple measures 1.1 x 1.0 x 0.8 cm. The specimen is imaged to reveal 3 biopsy marker clips (buckle, stoplight, and Q clip). The superior radial margin is inked blue, the inferior radial margin is inked green, and the deep margin is inked black. The breast is serially sectioned into 14 slices to reveal: Buckle clip biopsy site #1: Red hemorrhagic biopsy site with buckle clip, within slices 5-7 measuring 2.0 (lateral to medial) x 0.5 (anterior to posterior) x 0.3 cm (superior to inferior). The cyst site is situated at 10:00 in the upper outer quadrant. The lesion is located 0.6 cm from the superior radial margin, 2.5 cm from the deep margin, and 9.0 cm from the nipple. Stop light biopsy site #2: Hemorrhagic biopsy site with stoplight clip within slices 7-8, measuring 2.5 (lateral to medial) x 1.5 (superior to inferior) x 1.0 cm (anterior to posterior). The biopsy site is situated at 12:00 in the upper mid quadrant. The biopsy site is located 0.2 cm from the radial margin 5.0 cm from the deep margin, 2.5 cm from the nipple, and 5.0 cm from biopsy site #1. Q shaped biopsy site #3: Q clip embedded in unremarkable fibrofatty tissue, within slice 7. The clip is situated at 9:00 in the upper outer quadrant. The lesion is located 0.4 cm from the radial margin, 6.0 cm from the deep margin, 0.5 cm from the nipple, and 0.5 cm from biopsy site #2. The remaining breast parenchyma is soft adipose tissue with dense fibrous tissue(5%). Water Service Supervisor sections are submitted as follows: A1-A6 biopsy site #1 with associated buckle clip in upper outer quadrant; consecutive sections along the longest linear dimension from lateral to medial: A1 slice 5 with radial margin A2-A4 slice 6 with radial margin A5-slice 7 nonmarginal A6-slice 6 with nearest deep margin A7-slice 8 intervening parenchyma between biopsy site #1 and #2 A8-A11 biopsy site #2 with associated stoplight clip in upper mid quadrant; consecutive sections along the longest linear dimension from lateral to medial: A8-A11 slice 7with radial margin A12-A14 slice 8 with radial margin F07-dovlz 9 mid upper quadrant nearest deep margin G32-balkyyinlkx parenchyma between biopsy site #2 and biopsy site #3 Biopsy site #3 with associated Q clip and upper outer quadrant; consecutive sections along the longest linear dimension from lateral to medial: A17-A18 with radial margin and skin X30-qkzstcb flank and sectioned to biopsy site #1 with radial margin R22-pwmfd 8 medial flanking section 2 biopsy clip #1 with radial margin D51-zysdb 6 lateral flanking section of biopsy site #2 with radial margin L39-jtcny 9 medial flanking section 2 biopsy site #2 with radial margin Y05-ecwzc 6 lower inner quadrant with radial margin W51-yjicq 12 lower inner quadrant with radial margin G46-nyrkg 11 upper inner quadrant with radial margin X34-hpkxc 8 lower outer quadrant with inferior margin A27-A28 slice 8 nipple totally submitted The specimen was removed from the patient at 12:48 PM on 06/16/2024 and placed in formalin at 3:14 PM. Gross examination performed at [facility], [address] [place] [id number] [facility] June 17, 2024 10:30 AM B. Lymph Node, Right, [place] Received in formalin labeled right axillary sentinel lymph node is irregular-shaped segment yellow fibrofatty tissue measuring 2.5 x 2.0 x 0.5 cm. Palpation reveals a 1 brown firm nodule, resembling a lymph node, measuring 2.0 cm in greatest dimension. The specimen is totally submitted in formalin as follows: B1-lymph node serially sectioned B2-surrounding adipose tissue The specimen was removed from the patient at 1312 hrs. on 06/16/2024 and placed in formalin at 1514 hrs. Gross examination performed at [facility], [address] [place], [place] [id number] [facility] June 17, 2024 8:46 AM C. Lymph Node, Right, [place] Received in formalin labeled right axillary sentinel lymph node #2 is an irregular shaped segment of yellow fibrofatty tissue measuring 2.5 x 2.0 x 1.0 cm. Palpation reveals 1 pink firm nodule, resembling a lymph node, measuring 2.5 cm in greatest dimension. The specimen is serially sectioned and totally submitted as follows: C1-C2 solitary lymph node C3-surrounding adipose tissue D. Breast, Left, Mastectomy Received in formalin labeled left breast mastectomy is an oriented le (more content not included)... Performed By: #### M ICRO #### [facility] CLIA [id number] [address] [place] [address] [place] [address] [place] SYNOPTIC REPORT [facility] Comment on above: Order Comment: Speci men Type: BLOOD SPECIMEN Ordering Facility: [facility] [place] Address: [address] [place] [address] Result Comment: INVA SIVE CARCINOMA OF THE BREAST: Resection INVASIVE CARCINOMA OF THE BREAST: RESECTION - All Specimens 8th Edition - Protocol posted: 08/13/2023 SPECIMEN Procedure: Total mastectomy Specimen Laterality: Right TUMOR Histologic Type: Invasive carcinoma of no special type (ductal) Histologic Grade (Jake Histologic Score): Glandular (Acinar) / Tubular Differentiation: Score 2 Nuclear Pleomorphism: Score 2 Mitotic Rate: Score 1 Overall Grade: Grade 1 (scores of 3, 4 or 5) Tumor Size: Greatest dimension of largest invasive focus (Millimeters): 3 mm Tumor Focality: Single focus of invasive carcinoma Ductal Carcinoma In Situ (DCIS): Present Architectural Patterns: Cribriform Architectural Patterns: Papillary Nuclear Grade: Grade II (intermediate) Lobular Carcinoma In Situ (LCIS): Not identified Lymphatic and / or Vascular Invasion: Not identified Dermal Lymphatic and / or Vascular Invasion: Not identified Microcalcifications: Present in DCIS Treatment Effect in the Breast: No known presurgical therapy MARGINS Margin Status for Invasive Carcinoma: All margins negative for invasive carcinoma Distance from Invasive Carcinoma to Closest Margin: Greater than: 2 mm Margin Status for DCIS: DCIS present at margin Margin(s) Involved by DCIS: Superior: 12:00 near stoplight clip site; multifocal; <1 mm each in span REGIONAL LYMPH NODES Regional Lymph Node Status: : Tumor present in regional lymph node(s) Number of Lymph Nodes with Macrometastases: 0 Number of Lymph Nodes with Micrometastases: 0 Number of Lymph Nodes with Isolated Tumor Cells: 1 Size of Largest Chloe Metastatic Deposit: 0.1 mm Extranodal Extension: Not identified Total Number of Lymph Nodes Examined (sentinel and non-sentinel): 2 Number of [place] Nodes Examined: 2 pTNM CLASSIFICATION (AJCC 8th Edition) Reporting of pT, pN, and (when applicable) pM categories is based on information available to the pathologist at the time the report is issued. As per the AJCC (Chapter 1, 8th Ed.) it is the managing physician's responsibility to establish the final pathologic stage based upon all pertinent information, including but potentially not limited to this pathology report. pT Category: pT1a pN Category: pN0 (i+) N Suffix: (sn) Performed By: #### M ICRO #### [facility] CLIA [id number] [address] [place] [address] OF [facility] ECG COMPLETEon 06-15-2024 ECG COMPLETE Ventricular Rate : 8 8 BPM Atrial Rate : 88 BPM P-R Interval : 154 ms QRS Duration : 70 ms Q-T Interval : 360 ms QTC Calculation(Bazett) : 435 ms Calculated P Caldwell : 51 degrees Calculated R Caldwell : 60 degrees Calculated T Caldwell : 48 degrees NORMAL SINUS RHYTHM LOW VOLTAGE QRS, CONSIDER PULMONARY DISEASE, PERICARDIAL EFFUSION, OR NORMAL VARIANT BORDERLINE ECG Confirmed by PRINCESS GUTIERREZ MD ([id number]) on 07/08/2024 7:15:41 AM NAME : YOLANDE GOMES PID : [id number] : 1980 Gender : Female Race : ORD : [id number] Procedure Date : Jun 15 2024 09:52:01 Edit Date : Jul 08 2024 07:15:45 Diagnosis: NORMAL SINUS RHYTHM LOW VOLTAGE QRS, CONSIDER PULMONARY DISEASE, PERICARDIAL EFFUSION, OR NORMAL VARIANT BORDERLINE ECG Confirmed by PRINCESS GUTIERREZ MD ([id number]) on 07/08/2024 7:15:41 AM Test Reason : Location : 119 : A17 A17 Overread By : PRINCESS GUTIERREZ MD Edited By : PRINCESS GUTIERREZ MD Referred By : PRADEEP TAYLOR Acquired by : TRU GUSTAFSON [facility] HISTORY PHYSICALon HISTORY PHYSICAL HNO ID: [id number] Author: TOR ACEVEDO APRN.RODO Service: ? Author Type: Nurse Practitioner Type: H&P Filed: 06/15/2024 10:46 Note Text: [facility] HISTORY AND PHYSICAL EXAMINATION SERVICE DATE: 06/15/2024 SERVICE TIME: 10:44 AM PRIMARY CARE PHYSICIAN: Isabela Olivera APRN.CASE AIDE Assessment Patient has the following medical conditions which may affect valentina-operative course: Hypothyroidism, acquired Controlled on Synthroid Anxiety Controlled on Prozac Migraines Controlled with prn use of Relpax. ANESTHESIA FINDINGS: Intubation History: No history of difficult intubation. No abnormal airway history Significant Anesthesia Considerations: US guided in the past potential difficult IV/vein access Airway History: No history of difficult airway No abnormal airway history Odonnell Activity Status Index: METS: Walk indoors, such as around the house (1.75 METs) Do light work around the house, such as dusting or washing dishes (2.70 METs) Take care of self; that is eating, dressing, bathing, using the toilet (2.75 METs) Walk a block or two on level ground (2.75 METs) Do moderate work around the house, such as vacuuming, sweeping floors, or carrying in groceries (3.50 METs) Do yardwork, such as raking leaves, weeding, or pushing a power mower (4.50 METs) Climb a flight of stairs or walk up a hill (5.50 METs) DASI Score: 23.45 Patient denies any chest pain or undue shortness of breath with the above physical activity. STOP-Bang Score: Denies snoring loudly Denies feeling tired, fatigued, or sleepy during the daytime Has not been observed to stop breathing or choking/gasping during sleep Denies having high blood pressure BMI less than or equal to 35 kg/m2 Patient 50 years old or younger Does not have a large neck Non-male patient STOP-Bang Score: 0 I - PHYSICAL EVALUATION AIRWAY Patient intubated: No. Tracheostomy tube not present Mallampati: I. TM distance: >3 FB. Neck ROM: full ROM without neurological symptoms. Mouth opening: adequate. Short neck: no. Additional comments: +Right sided neck pain/tightness. Thick neck: no Hutchison present: no Lip Bite Test: I Microretrognathia/Micronagt hia/Recessed Chin: No DENTAL Normal dental observations. II - ANESTHESIA PLAN Anesthetic plan additional comments: *PACC/TCI - anesthesia choice. Beta Santo Monitoring Plan Post Procedure Analgesic Plan Prepared for Surgery: optimally prepared for surgery. This patient was seen the day before surgery in PACC. CONSULTS: Patient does not require consults for optimization at this time Planned Anesthetic: anesthesia choice The Following Tests/Procedures Have Been Initiated: No orders of the defined types were placed in this encounter. REASON FOR VISIT: Yolande Gomes is a 43 year old female who is scheduled for Procedure(s): MASTECTOMY SIMPLE BILATERAL (Bilateral) INTRAOPERATIVE ID OF SENTINEL LYMPH NODE(S) INCL'D INJECTION OF NON-RAD DYE WHEN PERFORMED (Right) BIOPSY NODE SENTINEL AXILLARY (Right) TISSUE PLASTER TENDER PLACEMENT IN BREAST RECONSTRUCTION BILATERAL (Bilateral) IMPLANTATION OF BIOLOGIC IMPLANT FOR SOFT TISSUE REINFORCEMENT (Bilateral) at the request of Pradeep Lucia MD for consultation. My final recommendation will be communicated back to the requesting physician by way of shared medical record or letter. Subjective The patient has the following: COVID-19 Immunization Status Current Care Gaps Covid-19 Vaccine ( season) Overdue since 10/26/2023 12/29/2020 Imm Admin: COVID-19 original vaccine, age 12+ yr, monovalent (PFIZER-BIONTECH - PURPLE TOP) 06/21/2020 Imm Admin: COVID-19 original vaccine, age 12+ yr, monovalent (PFIZER-BIONTECH - PURPLE TOP) 05/31/2020 Imm Admin: COVID-19 original vaccine, age 12+ yr, monovalent (PFIZER-BIONTECH - PURPLE TOP) Only the first 3 history entries have been loaded, but more history exists. CHIEF COMPLAINT: Preoperative Examination HPI: 43 year old female patient presents today with ductal carcinoma in situ of right breast. Patient was initially seen in the breast center for right bloody nipple discharge on 05/10/24 that occurred first in December 2023. Patient had 2 occurrences of bloody nipple discharge, the second being in February 2024. 04/13/24: MRI breast noted abnormal non mass enhancement of 2.3cm. L breast unremarkable. 05/2024 right DCIS ER PENDING% Grade 2 Prognostic Stage 0 [Tis N0 M0 ] breast cancer. Cancer Staging Carcinoma in situ of right breast Staging form: Breast, AJCC 8th Edition - Clinical stage from 06/01/2024: Stage 0 (cTis (DCIS), cN0, cM0, G2) - Unsigned Patient is scheduled for bilateral mastectomy on 06/16/[address] Taylor Right skin-sparing mastectomy with R Lawton Lymph node biopsy, Left prophylactic skin-sparing mastectomy as next step in treatment the above proced (more content not included)... Normal [facility] NM INJ SENT NODE BREAST RTon 06-15-2024 NM INJ SENT NODE BREAST RT * * *Final Report* * * DATE OF EXAM: Jun 15 2024 1:41PM [facility] 2190 - NM INJ SENT NODE BREAST RT / PROCEDURE REASON: multiple diagnoses * * * * Physician Interpretation * * * * BREAST LYMPHOSCINTIGRAPHY CLINICAL HISTORY: breast cancer. TECHNIQUE: Patient was identified using two identifiers. Verification of the side of breast cancer was confirmed with the patient and performed in conjunction with the assisting technologist as well as EPIC documentation. Patient medications and drug allergies were reviewed. 3.1 mCi of filtered technetium 99m sulfur colloid was injected in the right breast periareolar region. Initial dynamic imaging followed by planar static images of the chest and axillae were obtained RESULT: No Discrete foci of radiopharmaceutical accumulation are identified. IMPRESSION: NO SENTINEL LYMPH NODES IDENTIFIED Customs Appraiser: DIMITRI Transcribe Date/Time: Jun 15 2024 1:42P Dictated by : STAS SIBLEY MD This examination was interpreted and the report reviewed and electronically signed by: STAS SIBLEY MD on Jun 15 2024 1:47PM EST [id number] Normal [facility] NM Lymph node Viewson 2024 IMPRESSION: NO SENTINEL LYMPH NODES IDENTIFIED Customs Appraiser: PSCB Transcribe Date/Time: Jun 15 2024 1:42P Dictated by : STAS SIBLEY MD This examination was interpreted and the report reviewed and electronically signed by: STAS SIBLEY MD on Jun 15 2024 1:47PM EST DIVISION OF RADIOLOGY * * *Final Report* * * DATE OF EXAM: Jun 15 2024 1:41PM [facility] 2190 - NM INJ SENT NODE BREAST RT / PROCEDURE REASON: multiple diagnoses * * * * Physician Interpretation * * * * BREAST LYMPHOSCINTIGRAPHY CLINICAL HISTORY: breast cancer. TECHNIQUE: Patient was identified using two identifiers. Verification of the side of breast cancer was confirmed with the patient and performed in conjunction with the assisting technologist as well as EPIC documentation. Patient medications and drug allergies were reviewed. 3.1 mCi of filtered technetium 99m sulfur colloid was injected in the right breast periareolar region. Initial dynamic imaging followed by planar static images of the chest and axillae were obtained RESULT: No Discrete foci of radiopharmaceutical accumulation are identified. DIVISION OF RADIOLOGY Provider, Shanta Cinda [facility] - 06/15/2024 * * *Final Report* * * DATE OF EXAM: Jun 15 2024 1:41PM [facility] 2190 - NM INJ SENT NODE BREAST RT / PROCEDURE REASON: multiple diagnoses * * * * Physician Interpretation * * * * BREAST LYMPHOSCINTIGRAPHY CLINICAL HISTORY: breast cancer. TECHNIQUE: Patient was identified using two identifiers. Verification of the side of breast cancer was confirmed with the patient and performed in conjunction with the assisting technologist as well as EPIC documentation. Patient medications and drug allergies were reviewed. 3.1 mCi of filtered technetium 99m sulfur colloid was injected in the right breast periareolar region. Initial dynamic imaging followed by planar static images of the chest and axillae were obtained RESULT: No Discrete foci of radiopharmaceutical accumulation are identified. IMPRESSION IMPRESSION: NO SENTINEL LYMPH NODES IDENTIFIED Customs Appraiser: DIMITRI Transcribe Date/Time: Jun 15 2024 1:42P Dictated by : STAS SIBLEY MD This examination was interpreted and the report reviewed and electronically signed by: STAS SIBLEY MD on Jun 15 2024 1:47PM EST [facility] Radiology Study observation (narrative) [facility] NM Lymph node ViewsOrdered B y: [facility] Provider on 06-15-2024 [facility] 06-07-20[facility] YOLAN[facility] GOM[facility] ([id number]) 1980 F Date Time Provider Department 06/07/24 LAKISHA LEAL During your visit today, we recorded the following information about you: Lakisha Leal PA-C 06/07/2024 11:29 AM Signed Called and spoke with patient. Reviewed hormone receptor status returned as ER+ (95%). Patient appreciative of call. Lakisha Leal PA-C Allergies As of Date: 06/07/2024 Noted Allergy Reaction PENICILLINS 07/09/2006 10 - Anaphylaxis Date Reviewed: 06/03/2024 Reviewed by: Enoch Cade MA - Fully Assessed Prescriptions as of 06/07/2024 - FLUoxetine (PROZAC) 40 mg capsule Take 40 mg by mouth once daily. - levothyroxine (SYNTHROID) 100 mcg tablet Take 1 tablet on 5 days of the week, skip on 2 days of the week (may be Friday and Friday) - eletriptan (RELPAX) 40 mg tablet TAKE 1 TABLET NEEDED FOR MIGRAINE HEADACHE (SEE ADMINISTRATION INSTRUCTIONS) AT THE ONSET OF MIGRAINE HEADACHE (1 IN 24 HOURS) - Magnesium 200 mg tab Take by mouth. - SEMAGLUTIDE, WEIGHT LOSS, SUBCUTANEOUS Inject 70 Units subcutaneously one time a week. - spironolactone (ALDACTONE) 50 mg tablet Problem List As Of Date 06/07/2024 Noted Resolved Polycystic Ovarian Disease [E28.2] 05/10/2009 Hypothyroidism, acquired [E03.9] 07/22/2023 Thyroid nodule [E04.1] 07/23/2023 Chronic fatigue [R53.82] 07/23/2023 Carcinoma in situ of right breast [D05.91] 06/01/2024 Encounter Status:Closed by LAKISHA LEAL on 06/07/[address] [facility] CNOVon 06-03-2024 CNOV Office Visit ([facility]AS[facility] ) YOLANDE GOMES ([id number]) 1980 F Date Time Provider Department 06/03/24 10:30 AM ISIAH MESSINA During your visit today, we recorded the following information about you: Temperature Pulse Blood pressure Weight 97.1 degrees 89/minute 114/71 72.6 kg Height 1.62 m Isiah Messina MD 06/12/2024 7:31 PM Signed BREAST RECONSTRUCTION EVALUATION CC: Breast Reconstruction Evaluation. HPI: Yolande Gomes is a 43 year old female that presents today for breast reconstruction evaluation. Patient is scheduled for bilateral mastectomy on 06/16/[address] Taylor Right skin-sparing mastectomy with R Lawton Lymph node biopsy, Left prophylactic skin-sparing mastectomy Patient was initially seen in the breast center for right bloody nipple discharge on 05/10/24 that occurred first in December 2023. Patient had 2 occurrences of bloody nipple discharge, the second being in February 2024. Genetic Testing: Completed, results are pending, referral placed by Dr Taylor Prior Breast Procedures: Denies Prior Abdominal Surgery: Denies Hx Radiation Therapy: No Hx Chemotherapy: No Waiting to see if cancer is contained PRIOR MAMMOGRAM: Yes, date: 05/10/24, results: MAMMOGRAM FINDINGS: The breasts are heterogeneously dense, which may obscure small masses. The right mammogram is negative in the upper outer quadrant and at the site of focal pain at 11 o'clock 3 cm from the nipple. Finding 1: There are no suspicious mammographic findings to correspond with the bloody nipple discharge in the right breast. Finding 2: There are no suspicious mammographic findings to correspond with the non-bloody nipple discharge in the left breast. ULTRASOUND FINDINGS: IMPRESSION: Finding 1: The 0.6 x 0.2 x 0.2 cm intraductal mass in the right breast is suspicious for malignancy. Ultrasound-guided biopsy is recommended. The patient scheduled a right ultrasound biopsy as she left today and signed electronic informed consent. Finding 2: There is no suspicious imaging finding to correspond with the non-bloody nipple discharge in the left breast. Return to annual screening mammogram is recommended. Annual mammogram will be due in 1 year. 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 GENERAL: No weight loss, malaise or fevers HEENT: Negative for frequent or significant headaches, No changes in hearing or vision, no nose bleeds or other nasal problems NECK: Negative for lumps, goiter, pain and significant neck swelling RESPIRATORY: Negative for cough, hemoptysis, wheezing, COPD, dyspnea or shortness of breath CARDIOVASCULAR: Negative for chest pain, leg swelling, hypertension, CHF or palpitations PMH: PAST MEDICAL HISTORY Diagnosis Date Acne On spironolactone Anxiety Dysmenorrhea Dyspareunia Hypothyroidism also known nodule Migraines Papanicolaou smear of cervix with low grade squamous intraepithelial lesion (LGSIL) 02/24/2006 PMH - PAST MEDICAL HISTORY OF bipolar, borderline personality disorder PSH: PAST SURGICAL HISTORY Procedure Laterality Date PAST SURGICAL HISTORY OF tonsils PAST SURGICAL HISTORY OF DANDC 2017 and 2020 MEDS: Current Outpatient Medications Medication Sig Dispense Refill FLUoxetine (PROZAC) 40 mg capsule Take 40 mg by mouth once daily. levothyroxine (SYNTHROID) 100 mcg tablet Take 1 tablet on 5 days of the week, skip on 2 days of the week (may be Friday and Friday) 65 tablet 1 eletriptan (RELPAX) 40 mg tablet TAKE 1 TABLET NEEDED FOR MIGRAINE HEADACHE (SEE ADMINISTRATION INSTRUCTIONS) AT THE ONSET OF MIGRAINE HEADACHE (1 IN 24 HOURS) 12 tablet 19 Magnesium 200 mg tab Take by mouth. SEMAGLUTIDE, WEIGHT LOSS, SUBCUTANEOUS Inject 70 Units subcutaneously one time a week. spironolactone (ALDACTONE) 50 mg tablet No current facility-administered medications for this visit. EXAM: BP 114/71 Pulse 89 Temp 36.2 ?C (97.1 ?F) (Temporal) Ht 162 cm (5' 3.78) Wt 72.6 kg (160 lb) LMP 05/24/2024 (Exact Date) BMI 27.65 kg/m? Body mass index is 27.65 kg/m?. Breast Exam: Asymmetry: Right breast lower then left breast Scars: None Ptosis: R: Grade II - III L: Grade II- III Note: measurements are in centimeters SN t (more content not included)... Normal [facility] CNPNon 06-01-2024 CNPN Telephone ([facility]TWS) YOLANDE GOMES ([id number]) 1980 F Date Time Provider Department 06/01/24 FLY CHÁVEZ RADTWS During your visit today, we recorded the following information about you: Laya Leigh 06/01/2024 3:47 PM Signed Received email to schedule Radiation Consult. Order in [facility]. 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 Called patient to schedule, Unable to leave message. Voicemail full. Bella Alvarez, PERICO 06/07/2024 11:43 AM Signed Please try again to reach patient to schedule consultation per below note. Thank you. Leslie Cowart 06/07/2024 2:54 PM Signed Called patient no answer and unable to leave vm due to mailbox being full. Latasha Quinn, PERICO 06/08/2024 7:53 AM Signed Pt is scheduled with Dr Fairbanks on 06/23/24 (made on 06/03) so no need to schedule here unless that changes. Allergies As of Date: 06/01/2024 Noted Allergy Reaction PENICILLINS 07/09/2006 10 - Anaphylaxis Date Reviewed: 06/01/2024 Reviewed by: Jaimee Randall MD - Fully Assessed Prescriptions as of 06/08/2024 - FLUoxetine (PROZAC) 40 mg capsule Take 40 mg by mouth once daily. - levothyroxine (SYNTHROID) 100 mcg tablet Take 1 tablet on 5 days of the week, skip on 2 days of the week (may be Friday and Friday) - eletriptan (RELPAX) 40 mg tablet TAKE 1 TABLET NEEDED FOR MIGRAINE HEADACHE (SEE ADMINISTRATION INSTRUCTIONS) AT THE ONSET OF MIGRAINE HEADACHE (1 IN 24 HOURS) - Magnesium 200 mg tab Take by mouth. - SEMAGLUTIDE, WEIGHT LOSS, SUBCUTANEOUS Inject 70 Units subcutaneously one time a week. - spironolactone (ALDACTONE) 50 mg tablet Problem List As Of Date 06/01/2024 Noted Resolved Polycystic Ovarian Disease [E28.2] 05/10/2009 Hypothyroidism, acquired [E03.9] 07/22/2023 Thyroid nodule [E04.1] 07/23/2023 Chronic fatigue [R53.82] 07/23/2023 Carcinoma in situ of right breast [D05.91] 06/01/2024 Encounter Status:Closed by LATASHA ERAZO on 06/08/24 Normal [facility] CBC W Auto Differential pane l (Bld)on 05-31-2024 Basophils (Bld) [#/Vol] 0.04 10*3/uL [facility] Basophils/100 WBC (Bld) 0.5 % [facility] Differential cell count method Nom (Bld) Auto [facility] Eosinophils (Bld) [#/Vol] 0.07 10*3/uL [facility] Eosinophils/100 WBC (Bld) 0.9 % [facility] Erythrocyte distribution width (RBC) [Ratio] 12.4 % 11.5 - 15.0 % [facility] Hematocrit (Bld) [Volume fraction] 44 % 36.0 - 46.0 % [facility] Hemoglobin (Bld) [Mass/Vol] 14.5 g/dL 11.5 - 15.5 g/dL [facility] Immature granulocytes (Bld) [#/Vol] [facility] Immature granulocytes/100 WBC (Bld) 0.3 % [facility] Lymphocytes (Bld) [#/Vol] 2.26 10*3/uL [facility] Lymphocytes/100 WBC (Bld) 30.3 % [facility] MCH (RBC) [Entitic mass] 30.1 pg 26.0 - 34.0 pg [facility] MCHC (RBC) [Mass/Vol] 33 g/dL 30.5 - 36.0 g/dL [facility] MCV (RBC) [Entitic vol] 91.5 fL 80.0 - 100.0 fL [facility] Monocytes (Bld) [#/Vol] 0.4 10*3/uL [facility] Monocytes/100 WBC (Bld) 5.4 % [facility] Neutrophils (Bld) [#/Vol] 4.66 10*3/uL [facility] Neutrophils/100 WBC (Bld) 62.6 % [facility] Nucleated RBC (Bld) [#/Vol] [facility] Nucleated RBC/100 WBC (Bld) [Ratio] 0 % /100 WBC [facility] Platelet mean volume (Bld) [Entitic vol] 9.5 fL 9.0 - 12.7 fL [facility] Platelets (Bld) [#/Vol] 322 10*3/uL [facility] RBC (Bld) [#/Vol] 4.81 10*6/uL 3.90 - 5.20 m/uL [facility] WBC (Bld) [#/Vol] 7.45 10*3/uL [facility] Basophils (Bld) [#/Vol] 0.04 10*3/uL Normal <0.11 [facility] Comment on above: Order Comment: Speci men Type: BLOOD SPECIMEN Ordering Facility: [facility] [place] Address: [address] [place] [address] Performed By: #### 5 7021-8 #### [facility] CLIA [id number] [address] [place] [address] [place] Basophils/100 WBC (Bld) 0.5 % Normal [facility] Comment on above: Order Comment: Speci men Type: BLOOD SPECIMEN Ordering Facility: [facility] [place] Address: [address] [place] [address] Performed By: #### 5 7021-8 #### [facility] [id number] [address] [place] [address] [place] Differential cell count method Nom (Bld) Auto Normal [facility] Comment on above: Order Comment: Speci men Type: BLOOD SPECIMEN Ordering Facility: [facility] [place] Address: [address] [place] [address] Performed By: #### 5 7021-8 #### [facility] [id number] [address] [place] [address] [place] Eosinophils (Bld) [#/Vol] 0.07 10*3/uL Normal <0.46 [facility] Comment on above: Order Comment: Speci men Type: BLOOD SPECIMEN Ordering Facility: [facility] [place] Address: [address] [place] [address] Performed By: #### 5 7021-8 #### [facility] [id number] [address] [place] [address] [place] Eosinophils/100 WBC (Bld) 0.9 % Normal [facility] Comment on above: Order Comment: Speci men Type: BLOOD SPECIMEN Ordering Facility: [facility] [place] Address: [address] [place] [address] Performed By: #### 5 7021-8 #### [facility] [id number] [address] [place] [address] [place] Erythrocyte distribution width (RBC) [Ratio] 12.4 % Normal 11.5-15.0 [facility] Comment on above: Order Comment: Speci men Type: BLOOD SPECIMEN Ordering Facility: [facility] [place] Address: [address] [place] [address] Performed By: #### 5 7021-8 #### [facility] [id number] [address] [place] [address] [place] Hematocrit (Bld) [Volume fraction] 44.0 % Normal 36.0-46.0 [facility] Comment on above: Order Comment: Speci men Type: BLOOD SPECIMEN Ordering Facility: [facility] [place] Address: [address] [place] [address] Performed By: #### 5 7021-8 #### [facility] [id number] [address] [place] [address] [place] Hemoglobin (Bld) [Mass/Vol] 14.5 g/dL Normal 11.5-15.5 [facility] Comment on above: Order Comment: Speci men Type: BLOOD SPECIMEN Ordering Facility: [facility] [place] Address: [address] [place] [address] Performed By: #### 5 7021-8 #### [facility] [id number] [address] [place] [address] [place] Immature granulocytes (Bld) [#/Vol] 10*3/uL Normal <0.10 [facility] Comment on above: Order Comment: Speci men Type: BLOOD SPECIMEN Ordering Facility: [facility] [place] Address: [address] [place] [address] Performed By: #### 5 7021-8 #### [facility] [id number] [address] [place] [address] [place] Immature granulocytes/100 WBC (Bld) 0.3 % Normal [facility] Comment on above: Order Comment: Speci men Type: BLOOD SPECIMEN Ordering Facility: [facility] [place] Address: [address] [place] [address] Performed By: #### 5 7021-8 #### [facility] [id number] [address] [place] [address] [place] Lymphocytes (Bld) [#/Vol] 2.26 10*3/uL Normal 1.00-4.00 [facility] Comment on above: Order Comment: Speci men Type: BLOOD SPECIMEN Ordering Facility: [facility] [place] Address: [address] [place] [address] Performed By: #### 5 7021-8 #### [facility] [id number] [address] [place] [address] [place] Lymphocytes/100 WBC (Bld) 30.3 % Normal [facility] Comment on above: Order Comment: Speci men Type: BLOOD SPECIMEN Ordering Facility: [facility] [place] Address: [address] [place] [address] Performed By: #### 5 7021-8 #### [facility] [id number] [address] [place] [address] [place] MCH (RBC) [Entitic mass] 30.1 pg Normal 26.0-34.0 [facility] Comment on above: Order Comment: Speci men Type: BLOOD SPECIMEN Ordering Facility: [facility] [place] Address: [address] [place] [address] Performed By: #### 5 7021-8 #### [facility] [id number] [address] [place] [address] [place] MCHC (RBC) [Mass/Vol] 33.0 g/dL Normal 30.5-36.0 [facility] Comment on above: Order Comment: Speci men Type: BLOOD SPECIMEN Ordering Facility: [facility] [place] Address: [address] [place] [address] Performed By: #### 5 7021-8 #### [facility] [id number] [address] [place] [address] [place] MCV (RBC) [Entitic vol] 91.5 fL Normal 80.0-100.0 [facility] Comment on above: Order Comment: Speci men Type: BLOOD SPECIMEN Ordering Facility: [facility] [place] Address: [address] [place] [address] Performed By: #### 5 7021-8 #### [facility] [id number] [address] [place] [address] [place] Monocytes (Bld) [#/Vol] 0.40 10*3/uL Normal <0.87 [facility] Comment on above: Order Comment: Speci men Type: BLOOD SPECIMEN Ordering Facility: [facility] [place] Address: [address] [place] [address] Performed By: #### 5 7021-8 #### [facility] [place] [id number] [address] [place] [address] [place] Monocytes/100 WBC (Bld) 5.4 % Normal [facility] Comment on above: Order Comment: Speci men Type: BLOOD SPECIMEN Ordering Facility: [facility] [place] Address: [address] [place] [address] Performed By: #### 5 7021-8 #### [facility] [id number] [address] [place] [address] [place] Neutrophils (Bld) [#/Vol] 4.66 10*3/uL Normal 1.45-7.50 [facility] Comment on above: Order Comment: Speci men Type: BLOOD SPECIMEN Ordering Facility: [facility] [place] Address: [address] [place] [address] Performed By: #### 5 7021-8 #### [facility] [id number] [address] [place] [address] [place] Neutrophils/100 WBC (Bld) 62.6 % Normal [facility] Comment on above: Order Comment: Speci men Type: BLOOD SPECIMEN Ordering Facility: [facility] [place] Address: [address] [place] [address] Performed By: #### 5 7021-8 #### [facility] [id number] [address] [place] [address] [place] Nucleated RBC (Bld) [#/Vol] 10*3/uL Normal <0.01 [facility] Comment on above: Order Comment: Speci men Type: BLOOD SPECIMEN Ordering Facility: [facility] [place] Address: [address] [place] [address] Performed By: #### 5 7021-8 #### [facility] [id number] [address] [place] [address] [place] Nucleated RBC/100 WBC (Bld) [Ratio] 0.0 /100 WBC Normal [facility] Comment on above: Order Comment: Speci men Type: BLOOD SPECIMEN [facility] [facility] [place] Address: [address] [place] [address] Performed By: #### 5 7021-8 #### [facility] [id number] [address] [place] [address] [place] Platelet mean volume (Bld) [Entitic vol] 9.5 fL Normal 9.0-12.7 [facility] Comment on above: Order Comment: Speci men Type: BLOOD SPECIMEN Ordering Facility: [facility] [place] Address: [address] [place] [address] Performed By: #### 5 7021-8 #### [facility] [id number] [address] [place] [address] [place] Platelets (Bld) [#/Vol] 322 10*3/uL Normal 150-400 [facility] Comment on above: Order Comment: Speci men Type: BLOOD SPECIMEN Ordering Facility: [facility] [place] Address: [address] [place] [address] Performed By: #### 5 7021-8 #### [facility] [id number] [address] [place] [address] [place] RBC (Bld) [#/Vol] 4.81 10*6/uL Normal 3.90-5.20 [facility] Comment on above: Order Comment: Speci men Type: BLOOD SPECIMEN Ordering Facility: [facility] [place] Address: [address] [place] [address] Performed By: #### 5 7021-8 #### [facility] [id number] [address] [place] [address] [place] WBC (Bld) [#/Vol] 7.45 10*3/uL Normal 3.70-11.00 [facility] Comment on above: Order Comment: Speci men Type: BLOOD SPECIMEN Ordering Facility: [facility] [place] Address: [address] [place] [address] Performed By: #### 5 7021-8 #### [facility] CLIA [id number] [address] [place] [address] [place] CNOVon 05-31-2024 CNOV Office Visit (BRCRCA ) YOLANDE GOMES ([id number]) 1980 F Date Time Provider Department 05/31/24 8:30 AM PRADEEP TAYLOR During your visit today, we recorded the following information about you: Temperature Pulse Respiration Blood pressure 98.3 degrees 87/minute 20/minute 138/78 Weight Height Last Period 73.8 kg 1.62 m 05/24/24 Aislinn Tiwari LPN 05/31/2024 10:32 AM Signed Additional intake questions: Has the patient had fever, nausea, vomiting, diarrhea, constipation, fatigue for > 1 week? Yes, diarrhea ( 4 times in last 24 hours) and fatigue Does the patient have a decreased appetite? No Does patient want to see a Chain Repairer? No (yes to any of above refer patient to schedulers for dietitian appointment) ) Does patient have any new or increased numbness or tingling of extremities? No Is patient interested in fertility information? No Does patient need any prescription refills? No Does patient have an advanced directive in place? no Electronically Signed By: MATTHEW Gillis Vincent, MD 05/31/2024 10:[address] [facility] Department of Breast Surgical Oncology [facility] NEW BREAST CANCER - INITIAL SURGICAL VISIT SERVICE DATE: 05/31/2024 REFERRING PROVIDER: No referring provider defined for this encounter. Consult requested for an opinion regarding the evaluation and treatment of breast cancer. My final impression and recommendations will be communicated back to the requesting physician by way of the shared medical record or letter via US mail. SUBJECTIVE: REASON FOR TODAY'S VISIT: Breast Cancer Evaluation HISTORY of PRESENT ILLNESS: Yolande Gomes is a 43 year old female with a history significant for Hypothyroidism , no family history of breast or ovarian cancer, who presents for an evaluation of a new 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 Rt breast UOQ mid depth at least ADH. Stage 0, [id number]. Ms. Gomes was initially seen by Lissette Mcleod in the breast center for right bloody nipple discharge on 05/10/24. Per this clinic note, she first noted bloody nipple discharge in Dec 2023. This occurred again in Feb 2024, spontaneous, noted on tank top. Pressure to the breast will also lead to bloody discharge. Discharge is from multiple ducts. No Spontaneous Left nipple discharge with some non bloody discharge with pressure B/l screening MMG (12/12/23, per Lissette Mcleod 05/10/24 note): Scattered areas of fibroglandular density. No significant findings, changes from prior studies. BIRADS 2. MRI Breast (04/13/24, OSH): RIGHT breast 2.3 cm NME extending to base of the nipple. Additional posterior NME including UO mid depth 1.5 cm NME. LEFT breast no significant findings. No axillary or intramammary LAD. B/l diag MMG (05/10/24, [facility]): Heterogeneously dense breasts. RIGHT MMG is negative in UOQ 11:00 3 cmFN at site of focal pain. RIGHT breast no mammographic correlate to nipple discharge in Rt breast. LEFT breast no mammographic corrleate for non-bloody nipple discharge in the left breast. B/l breast US (05/10/24, [facility]): RIGHT breast intraductal 0.6 x 0.2 x 0.2 cm mass, correlates with nipple discharge in Rt breast. US CNBx recommended. Right breast 11:00 3 cmFN negative sonographic findings. MRI CNBx recommended. LEFT breast no sonographic findings corresponding to non-bloody nipple discharge. Return to annual screening MMG of the Lt breast. Rt breast US CNBx (05/20/24, [facility]): 10:00 subareolar - Minute fragments of fibrovascular and adipose tissue. No breast ducts or intraductal lesion present for review. Q clip at target. Noted to be concordant. 6 month f/u MMG/US recommended. MRI Breast recommended. On my review, however, this appears to be discordant given proximity to stoplight clip, associated bloody nipple discharge. Rt breast MRI CNBx (05/27/24, [facility]): (1) Rt breast UOQ ant depth - Low-int grade DCIS, papillary/cribriform types. ER pending. Stoplight clip at target. Concordant. (2) Rt breast UOQ mid depth - ADH bordering on DCIS. Buckle clip is 1 cm lateral to UOQ NME. Concordant. Genetic testing: Interested and will obtain lab later this visit Patient denies any masses, skin changes/thickening, dimpling, or nipple inversion of either breast. Patient had some dry skin around the right nipple area, started around January of 2024, no masses or skin changes, reported 2 previous nipple discharge on the right breast HISTORY OF BREAST PROCEDURE(S): No prior history of breast biopsies or procedures Total Clips: Rt breast 3 Rt breast UOQ anterior depth, Stoplight, DCIS Rt breast UOQ mid depth, Buckle, ADH bordering DCIS, 1 cm lateral Rt breast 10:00 subareolar, Q clip, adipose/fibrovascular fragements PAST MEDICAL HISTORY: (more content not included)... Normal [facility] [place] 05-31-2024 MANASA Telephone (MATT) ELISEOYOLANDE Valle ([id number]) 1980 F Date Time Provider Department 05/31/24 LISSETTE MCLEOD During your visit today, we recorded the following information about you: Lissette Mcleod APRN.CNP 05/31/2024 3:31 PM Signed Called patient and verified identity. We discussed her recent right breast biopsy results that showed DCIS (05/27/2024). She already met with Dr. Taylor this morning to discuss surgical treatment plan (05/31/2024). She is scheduled to meet with Dr. Randall in hematology/oncology tomorrow. I offered her a referral to breast psychology and she is amenable. She may contact me with any questions or concerns. Lissette Mcleod APRN.CNP May 31, 2024 15:29 Allergies As of Date: 05/31/2024 Noted Allergy Reaction PENICILLINS 07/09/2006 10 - Anaphylaxis Date Reviewed: 05/31/2024 Reviewed by: Aislinn Tiwari LPN - Fully Assessed Primary Visit Diagnosis:Personal history of breast cancer [Z85.3] Order(s):PSYCHOLOGY BREAST CENTER CONSULT [[id number]] Order #: [id number]: 1 FUTURE Prescriptions as of 05/31/2024 - FLUoxetine (PROZAC) 40 mg capsule Take 40 mg by mouth once daily. - levothyroxine (SYNTHROID) 100 mcg tablet Take 1 tablet on 5 days of the week, skip on 2 days of the week (may be Friday and Friday) - eletriptan (RELPAX) 40 mg tablet TAKE 1 TABLET NEEDED FOR MIGRAINE HEADACHE (SEE ADMINISTRATION INSTRUCTIONS) AT THE ONSET OF MIGRAINE HEADACHE (1 IN 24 HOURS) - Magnesium 200 mg tab Take by mouth. - SEMAGLUTIDE, WEIGHT LOSS, SUBCUTANEOUS Inject 70 Units subcutaneously one time a week. - spironolactone (ALDACTONE) 50 mg tablet Problem List As Of Date 05/31/2024 Noted Resolved Polycystic Ovarian Disease [E28.2] 05/10/2009 Hypothyroidism, acquired [E03.9] 07/22/2023 Thyroid nodule [E04.1] 07/23/2023 Chronic fatigue [R53.82] 07/23/2023 Encounter Status:Closed by LISSETTE MCLEOD on 05/31/24 Normal [facility] metabolic 2000 panelon 05-31-2024 Albumin [Mass/Vol] 4.5 g/dL 3.9 - 4.9 g/dL [facility] ALP [Catalytic activity/Vol] 78 U/L 34 - 123 U/L [facility] ALT [Catalytic activity/Vol] 13 U/L 7 - 38 U/L [facility] Anion gap [Moles/Vol] 10 mmol/L 8 - 15 mmol/L [facility] AST [Catalytic activity/Vol] 15 U/L 13 - 35 U/L [facility] Bilirubin [Mass/Vol] 0.8 mg/dL 0.2 - 1 .3 mg/dL [facility] Calcium [Mass/Vol] 9.4 mg/dL 8.5 - 10. 2 mg/dL [facility] Chloride [Moles/Vol] 103 mmol/L 98 - 10 7 mmol/L [facility] CO2 [Moles/Vol] 25 mmol/L 22 - 30 mmol/L [facility] Creatinine [Mass/Vol] 0.78 mg/dL 0.58 - 0.96 mg/dL [facility] GFR/1.73 sq M.predicted among non-blacks MDRD (S/P/Bld) [Vol rate/Area] 96 mL/min/{1.73_m2} - PINF [facility] Comment on above: Estimated Glomerular Filtration Rate (eGFR) is calculated using the 2020 CKD-EPI creatinine equation. This equation utilizes serum creatinine, sex, and age as parameters. The creatinine assay has traceable calibration to isotope dilution-mass spectrometry. Refer to KDIGO guidelines for clinical interpretation. In patients with unstable renal function, e.g. those with acute kidney injury, the eGFR may not accurately reflect actual GFR. Glucose [Mass/Vol] 90 mg/dL 74 - 99 mg/dL [facility] Comment on above: The [place] Diabete s Association (ADA) provides guidance for cutoff values for fasting glucose and random glucose. The ADA defines fasting as no caloric intake for at least 8 hours. Fasting plasma glucose results between 100 to 125 mg/dL indicate increased risk for diabetes (prediabetes). Fasting plasma glucose results greater than or equal to 126 mg/dL meet the criteria for diagnosis of diabetes. In the absence of unequivocal hyperglycemia, results should be confirmed by repeat testing. In a patient with classic symptoms of hyperglycemia or hyperglycemic crisis, random plasma glucose results greater than or equal to 200 mg/dL meet the criteria for diagnosis of diabetes. Reference: Standards of Medical Care in Diabetes 2016, [place] Diabetes Association. Diabetes Care. 2016.39(Suppl 1). Interpretation and review of laboratory results Normal [facility] Potassium [Moles/Vol] 4.5 mmol/L 3.7 - 5.1 mmol/L [facility] Protein [Mass/Vol] 6.8 g/dL 6.3 - 8.0 g/dL [facility] Sodium [Moles/Vol] 138 mmol/L 136 - 144 mmol/L [facility] Urea nitrogen [Mass/Vol] 10 mg/dL 7 - 21 mg/dL [facility] Albumin [Mass/Vol] 4.5 g/dL Normal 3.9-4.9 [facility] Comment on above: Order Comment: Speci men Type: BLOOD SPECIMEN Ordering Facility: [facility] [place] Address: [address] [place] [address] Performed By: #### 2 4323-8 #### [facility] [id number] [address] [place] [address] [place] ALP [Catalytic activity/Vol] 78 U/L Normal 34-123 [facility] Comment on above: Order Comment: Speci men Type: BLOOD SPECIMEN Ordering Facility: [facility] [place] Address: [address] [place] [address] Performed By: #### 2 4323-8 #### [facility] [id number] [address] [place] [address] [place] ALT [Catalytic activity/Vol] 13 U/L Normal 7-38 [facility] Comment on above: Order Comment: Speci men Type: BLOOD SPECIMEN Ordering Facility: [facility] [place] Address: [address] [place] [address] Performed By: #### 2 4323-8 #### [facility] [id number] [address] [place] [address] [place] Anion gap [Moles/Vol] 10 mmol/L Normal 8-15 [facility] Comment on above: Order Comment: Speci men Type: BLOOD SPECIMEN Ordering Facility: [facility] [place] Address: [address] [place] [address] Performed By: #### 2 4323-8 #### [facility] [id number] [address] [place] [address] [place] AST [Catalytic activity/Vol] 15 U/L Normal 13-35 [facility] Comment on above: Order Comment: Speci men Type: BLOOD SPECIMEN Ordering Facility: [facility] [place] Address: [address] [place] [address] Performed By: #### 2 4323-8 #### [facility] [id number] [address] [place] [address] [place] Bilirubin [Mass/Vol] 0.8 mg/dL Normal 0.2-1.3 [facility] Comment on above: Order Comment: Speci men Type: BLOOD SPECIMEN Ordering Facility: [facility] [place] Address: [address] [place] [address] Performed By: #### 2 4323-8 #### [facility] [id number] [address] [place] [address] [place] Calcium [Mass/Vol] 9.4 mg/dL Normal 8.5-10.2 [facility] Comment on above: Order Comment: Speci men Type: BLOOD SPECIMEN Ordering Facility: [facility] [place] Address: [address] [place] [address] Performed By: #### 2 4323-8 #### [facility] [id number] [address] [place] [address] [place] Chloride [Moles/Vol] 103 mmol/L Normal 98-107 [facility] Comment on above: Order Comment: Speci men Type: BLOOD SPECIMEN Ordering Facility: [facility] [place] Address: [address] [place] [address] Performed By: #### 2 4323-8 #### [facility] [id number] [address] [place] [address] [place] CO2 [Moles/Vol] 25 mmol/L Normal 22-30 [facility] Comment on above: Order Comment: Speci men Type: BLOOD SPECIMEN Ordering Facility: [facility] [place] Address: [address] [place] [address] Performed By: #### 2 4323-8 #### [facility] [id number] [address] [place] [address] [place] Creatinine [Mass/Vol] 0.78 mg/dL Normal 0.58-0.96 [facility] Comment on above: Order Comment: Speci men Type: BLOOD SPECIMEN Ordering Facility: [facility] [place] Address: [address] [place] [address] Performed By: #### 2 4323-8 #### [facility] [id number] [address] [place] [address] [place] Creatinine and Glomerular filtration rate.predicted panel (S/P/Bld) 96 mL/min/1.73m??? Normal >=60 [facility] Comment on above: Order Comment: Speci men Type: BLOOD SPECIMEN Ordering Facility: [facility] [place] Address: [address] [place] [address] Result Comment: Apryl mated Glomerular Filtration Rate (eGFR) is calculated using the 2020 CKD-EPI creatinine equation. This equation utilizes serum creatinine, sex, and age as parameters. The creatinine assay has traceable calibration to isotope dilution-mass spectrometry. Refer to KDIGO guidelines for clinical interpretation. In patients with unstable renal function, e.g. those with acute kidney injury, the eGFR may not accurately reflect actual GFR. Performed By: #### 2 4323-8 #### [facility] [id number] [address] [place] [address] [place] Glucose [Mass/Vol] 90 mg/dL Normal 74-99 [facility] Comment on above: Order Comment: Speci men Type: BLOOD SPECIMEN Ordering Facility: [facility] [place] Address: [address] [place] [address] Result Comment: The [place] Diabetes Association (ADA) provides guidance for cutoff values for fasting glucose and random glucose. The ADA defines fasting as no caloric intake for at least 8 hours. Fasting plasma glucose results between 100 to 125 mg/dL indicate increased risk for diabetes (prediabetes). Fasting plasma glucose results greater than or equal to 126 mg/dL meet the criteria for diagnosis of diabetes. In the absence of unequivocal hyperglycemia, results should be confirmed by repeat testing. In a patient with classic symptoms of hyperglycemia or hyperglycemic crisis, random plasma glucose results greater than or equal to 200 mg/dL meet the criteria for diagnosis of diabetes. Reference: Standards of Medical Care in Diabetes 2016, [place] Diabetes Association. Diabetes Care. 2016.39(Suppl 1). Performed By: #### 2 4323-8 #### [facility] [id number] [address] [place] [address] [place] Potassium [Moles/Vol] 4.5 mmol/L Normal 3.7-5.1 [facility] Comment on above: Order Comment: Speci men Type: BLOOD SPECIMEN Ordering Facility: [facility] [place] Address: [address] [place] [address] Performed By: #### 2 4323-8 #### [facility] [id number] [address] [place] [address] [place] Protein [Mass/Vol] 6.8 g/dL Normal 6.3-8.0 [facility] Comment on above: Order Comment: Speci men Type: BLOOD SPECIMEN Ordering Facility: [facility] Address: [address] [place] [address] Performed By: #### 2 4323-8 #### [facility] [id number] [address] [place] [address] [place] Sodium [Moles/Vol] 138 mmol/L Normal 136-144 [facility] Comment on above: Order Comment: Speci men Type: BLOOD SPECIMEN Ordering Facility: [facility] [place] Address: [address] [place] [address] Performed By: #### 2 4323-8 #### [facility] [place] [id number] [address] [place] [address] [place] Urea nitrogen [Mass/Vol] 10 mg/dL Normal 7-21 [facility] Comment on above: Order Comment: Speci men Type: BLOOD SPECIMEN Ordering Facility: [facility] Address: [address] [place] [address] Performed By: #### 2 4323-8 #### [facility] [place] [id number] [address] [place] [address] [place] CNPNon 05-28-2024 CNPN Telephone (RADMN) YOLANDE GOMES ([id number]) 1980 F Date Time Provider Department 05/28/24 DREA BOUCHER During your visit today, we recorded the following information about you: Drea Boucher RN 05/28/2024 3:23 PM Signed Called and spoke with patient who was identified by name and . Informed pt. the breast pathology results show malignancy per Dr. Win. Introduced patient to POC for multidisciplinary consults Surgical Hem/Onc Rad/Onc as well as future contact from surgical field care coordinator for introductory call and appointment time review. Assessed patient preference for surgical teams and locations, and offered first available appointment that met patient's needs. Patient in agreement with plan outline below. Surgeon: Dr. Taylor Site: [facility] Date: 05/31/2024 Time: 0830 Allergies As of Date: 05/28/2024 Noted Allergy Reaction PENICILLINS 07/09/2006 10 - Anaphylaxis Date Reviewed: 05/27/2024 Reviewed by: Lissette Carmona, RT(R) - Fully Assessed Reason for Visit: Results [95] Appointment [186] Prescriptions as of 05/28/2024 - FLUoxetine (PROZAC) 40 mg capsule Take 40 mg by mouth once daily. - levothyroxine (SYNTHROID) 100 mcg tablet Take 1 tablet on 5 days of the week, skip on 2 days of the week (may be Friday and Friday) - eletriptan (RELPAX) 40 mg tablet TAKE 1 TABLET NEEDED FOR MIGRAINE HEADACHE (SEE ADMINISTRATION INSTRUCTIONS) AT THE ONSET OF MIGRAINE HEADACHE (1 IN 24 HOURS) - atogepant (QULIPTA) 60 mg tablet Take 1 tablet (60 mg) by mouth once daily. - Magnesium 200 mg tab Take by mouth. - SEMAGLUTIDE, WEIGHT LOSS, SUBCUTANEOUS Inject 70 Units subcutaneously one time a week. - spironolactone (ALDACTONE) 50 mg tablet - FLUoxetine HCl 20 mg tablet Take 20 mg by mouth once daily. - VITAMIN B COMPLEX-100 ORAL Take 1 tablet by mouth once daily. Problem List As Of Date 05/28/2024 Noted Resolved Polycystic Ovarian Disease [E28.2] 05/10/2009 Hypothyroidism, acquired [E03.9] 07/22/2023 Thyroid nodule [E04.1] 07/23/2023 Chronic fatigue [R53.82] 07/23/2023 Encounter Status:Closed by DREA BOUCHER on 05/28/[address] [facility] MANASA Telephone (MATT) YOLANDE GOMES ([id number]) 1980 F Date Time Provider Department 05/28/24 LISSETTE MCLEOD During your visit today, we recorded the following information about you: Lissette Mcleod APRN.CASE AIDE 05/28/2024 5:10 PM Signed Attempted to call patient to discuss right breast biopsy results from 05/27/2024. Voicemail box was full and I was unable to leave a message. Lissette Mcleod APRN.CASE AIDE May 28, 2024 17:09 Allergies As of Date: 05/28/2024 Noted Allergy Reaction PENICILLINS 07/09/2006 10 - Anaphylaxis Date Reviewed: 05/27/2024 Reviewed by: Lissette Carmona RT(R) - Fully Assessed Prescriptions as of 05/28/2024 - FLUoxetine (PROZAC) 40 mg capsule Take 40 mg by mouth once daily. - levothyroxine (SYNTHROID) 100 mcg tablet Take 1 tablet on 5 days of the week, skip on 2 days of the week (may be Friday and Friday) - eletriptan (RELPAX) 40 mg tablet TAKE 1 TABLET NEEDED FOR MIGRAINE HEADACHE (SEE ADMINISTRATION INSTRUCTIONS) AT THE ONSET OF MIGRAINE HEADACHE (1 IN 24 HOURS) - atogepant (QULIPTA) 60 mg tablet Take 1 tablet (60 mg) by mouth once daily. - Magnesium 200 mg tab Take by mouth. - SEMAGLUTIDE, WEIGHT LOSS, SUBCUTANEOUS Inject 70 Units subcutaneously one time a week. - spironolactone (ALDACTONE) 50 mg tablet - FLUoxetine HCl 20 mg tablet Take 20 mg by mouth once daily. - VITAMIN B COMPLEX-100 ORAL Take 1 tablet by mouth once daily. Problem List As Of Date 05/28/2024 Noted Resolved Polycystic Ovarian Disease [E28.2] 05/10/2009 Hypothyroidism, acquired [E03.9] 07/22/2023 Thyroid nodule [E04.1] 07/23/2023 Chronic fatigue [R53.82] 07/23/2023 Encounter Status:Closed by LISSETTE MCLEOD on 05/28/24 Normal [facility] BREAST BIOMARKERS (DCIS)on 0 05-27-2024 AP BIOMARKER DISCLAIMER Normal [facility] Comment on above: Order Comment: Speci men Type: TISSUE SPECIMEN Ordering Facility: [facility] [place] Address: [address] [place], [place] [id number] Result Comment: Laboratory Developed Test (LDT) Disclaimer: Performance characteristics of immunohistochemical, immunofluorescent and chromogenic in-situ hybridization tests have been determined by the performing laboratory within [facility]???s Edis Mcdaniels Pathology and Laboratory Medicine Department ([facility], [facility], [facility], [facility], [facility], [facility], [facility]) in a manner consistent with CLIA requirements. One or more of these tests have not been cleared or approved by the FDA. [facility] is regulated under CLIA as qualified to perform high-complexity testing. These tests are used for clinical purposes. They should not be regarded as investigational or for research. Positive and negative controls stain appropriately. Performed By: #### L [id number] #### [facility] CLIA [id number] [address] [place] [address] [place] AP BLOCK ID A2 [facility] Comment on above: Order Comment: Speci men Type: TISSUE SPECIMEN Ordering Facility: [facility] [place] Address: [address] [place] [address] Performed By: #### L [id number] #### [facility] CLIA [id number] [address] [place] [address] [place] ASCO/CAP GUIDELINES FOR FIXATION MET Yes Normal [facility] Comment on above: Order Comment: Speci men Type: TISSUE SPECIMEN Ordering Facility: [facility] [place] Address: [address] [place] [address] Performed By: #### L [id number] #### [facility] CLIA [id number] [address] [place] [address] [place] BIOMARKER INTERPRETATION COMMENT AND REFERENCE RANGE Normal [facility] Comment on above: Order Comment: Speci men Type: TISSUE SPECIMEN Ordering Facility: [facility] [place] Address: [address] [place] [address] Result Comment: Refe rence Range for Hormone Receptors: Staining for ER of greater than or equal 1% of the tumor cells is considered positive. Staining for ER of less than 1% is considered negative. Performed By: #### L [id number] #### [facility] CLIA [id number] [address] [place] [address] [place] BIOMARKER METHOD Normal [facility] Comment on above: Order Comment: Speci men Type: TISSUE SPECIMEN Ordering Facility: [facility] [place] Address: [address] [place] [address] Result Comment: Estr ogen Receptor: Food and Drug Administration (FDA) cleared: [employer], [place], [place] Primary Antibody: SP1 The hormone receptor test was performed and reported in accordance with the guidelines approved by the [place] Society [employer] Oncologists and the College of [employer] Pathologists. Emma PUENTES et al. Estrogen and Progesterone Receptor Testing in Breast Cancer: [place] Society of Clinical Oncologists and the College of [place] Pathologists Guideline Update. Arch Pathol Lab Med. 2019;144(5):545563. PMID: [id number]. The hormone receptor assay has been internally validated on decalcified tissues (for [facility] only). Estrogen results are valid if tissue was processed according to ASCO/CAP guidelines. Antibody and Detection System: [place] Confirm anti-estrogen receptor rabbit monoclonal antibody (clone SP1) detected with the [employer] UltraView Univeral DAB Detection Kit (indirect biotin-free detection), [employer], [place], [place]. Performed By: #### L [id number] #### [facility] CLIA [id number] [address] [place] [address] [place] [facility] CASE NUMBER DCIS [id number] Normal [facility] Comment on above: Order Comment: Speci men Type: TISSUE SPECIMEN Ordering Facility: [facility] [place] Address: [address] [place] [address] Performed By: #### L [id number] #### [facility] CLIA [id number] [address] [place] [address] [place] COLD ISCHEMIA TIME <1 Hour Normal [facility] Comment on above: Order Comment: Speci men Type: TISSUE SPECIMEN Ordering Facility: [facility] [place] Address: [address] [place] [address] Performed By: #### L [id number] #### [facility] CLIA [id number] [address] [place] [address] [place] ESTROGEN RECEPTOR (% TUMOR STAINING) 95 Normal [facility] Comment on above: Order Comment: Speci men Type: TISSUE SPECIMEN Ordering Facility: [facility] [place] Address: [address] [place] [address], [place] [address] Performed By: #### L [id number] #### [facility] CLIA [id number] [address] [address] [place] ESTROGEN RECEPTOR (STAINING INTENSITY) Strong [facility] Comment on above: Order Comment: Speci men Type: TISSUE SPECIMEN Ordering Facility: [facility] [place] Address: [address] [place] [id number] Performed By: #### L [id number] #### [facility] CLIA [id number] [address] [address] [place] ESTROGEN RECEPTOR EXTERNAL CONTROL Present and Stained as Expected [facility] Comment on above: Order Comment: Speci men Type: TISSUE SPECIMEN Ordering Facility: [facility] [place] Address: [address] [place], [place] [id number] Performed By: #### L [id number] #### [facility] CLIA [id number] [address] [place], [place] [id number] [place] ESTROGEN RECEPTOR INTERNAL CONTROL Present and Stained as Expected [facility] Comment on above: Order Comment: Speci men Type: TISSUE SPECIMEN Ordering Facility: [facility] [place] Address: [address] [place] [id number] Performed By: #### L [id number] #### [facility] CLIA [id number] [address] [place] [address] [place] ESTROGEN RECEPTOR STATUS (DCIS) Positive [facility] Comment on above: Order Comment: Speci men Type: TISSUE SPECIMEN Ordering Facility: [facility] [place] Address: [address] [place] [address] Performed By: #### L [id number] #### [facility] CLIA [id number] [address] [place] [address] [place] FINAL PERFORMING LAB Normal [facility] Comment on above: Order Comment: Speci men Type: TISSUE SPECIMEN Ordering Facility: [facility] [place] Address: [address] [place], [place] [id number] Result Comment: Diag nostic interpretation performed at: [facility], [address] [place] [address] [place] [address] CLIA# [id number] Overlock Sleeve Setter: Carlos Finnegan MD Electronically signed out by: Jovani Claudio MD Performed By: #### L [id number] #### [facility] CLIA [id number] [address] [place] [address] [place] Order Comment: Speci men Type: TISSUE SPECIMENOrdering Facility: [facility] [place] Address: [address] [place] [address] Result Comment: Diag nostic interpretation performed at: [facility], [address] [place] [address] [place] [address] CLIA# [id number] Overlock Sleeve Setter: Carlos Finnegan MD Performed By: #### 6 [id number] ####[facility] [id number] [place] [address] [place] FIXATIVE Formalin, 10% Neutra l Buffered [facility] Comment on above: Order Comment: Speci men Type: TISSUE SPECIMEN Ordering Facility: [facility] [place] Address: [address] [place] [address] Performed By: #### L [id number] #### [facility] CLIA [id number] [address] [place] [address] [place] TOTAL FIXATION TIME >6 and <72 Hours Normal [facility] Comment on above: Order Comment: Speci men Type: TISSUE SPECIMEN Ordering Facility: [facility] [place] Address: [address] [place], [place] [id number] Performed By: #### L [id number] #### [facility] CLIA [id number] [address] [place], [place] [id number] [place] TUMOR TYPE (DCIS) Ductal Carcinoma in situ (DCIS) Normal [facility] Comment on above: Order Comment: Speci men Type: TISSUE SPECIMEN Ordering Facility: [facility] [place] Address: [address] [place] [address] Performed By: #### L [id number] #### [facility] CLIA [id number] [address] [place] [address] [place] WAS SPECIMEN DECALCIFIED No [facility] Comment on above: Order Comment: Speci men Type: TISSUE SPECIMEN Ordering Facility: [facility] [place] Address: [address] [place] [address] Performed By: #### L [id number] #### [facility] CLIA [id number] [address] [place] [address] [place] DBT Breast - right diagnosti c for implanton 05-27-2024 IMPRESSION: MRI BIOP SY Site 1: MRI-guided biopsy of non-mass enhancement located in the right breast in the upper outer quadrant, anterior depth with placement of a stoplight biopsy marker was successful. Waiting for pathology result. An amendment will be issued to this report when pathology results become available. The stoplight biopsy marker is in appropriate position at the non-mass enhancement in the upper outer quadrant. Site 2: MRI-guided biopsy of non-mass enhancement located in the right breast in the upper outer quadrant, middle depth with placement of a buckle biopsy marker was successful. Waiting for pathology result. An amendment will be issued to this report when pathology results become available. The buckle biopsy marker has migrated 1 cm lateral to the non-mass enhancement in the upper outer quadrant. Interpreting Radiologist: Makayla Win M.D. Resident/Fellow: Madelaine Garcia D.O. Electronically signed on: 05/27/2024 Customs Appraiser: JD Transcrivince Date/Time: May 27 2024 1:14P Dictated by : MADELAINE GARCIA, DO This examination was interpreted and the report reviewed and electronically signed by: MAKAYLA WIN MD on May 27 2024 2:55PM [facility] DIVISION OF RADIOLOGY * * *Final Report* * * DATE OF EXAM: May 27 2024 1:26PM Ben 0629 - МАРИЯ PHOENIXG Ben KILLIAN RT / PROCEDURE REASON: Abnormal finding on radiology exam * * * * Physician Interpretation * * * * RESULT: [address] [place] [address] #[id number] - MRI BREAST BX WO/W IVCON RT #[id number] - MRI BREAST BX ADDL LES RT #[id number] - МАРИЯ DIAG W CONSTANTIN RT HISTORY: 43 year old patient presents for MRI-guided biopsy of the following, identified on recent MRI: Site 1: Non-mass enhancement located in the right breast in the upper outer quadrant, anterior depth Site 2: Non-mass enhancement located in the right breast in the upper outer quadrant, middle depth PATIENT CONSENT: A time out was performed immediately prior to procedure start with the radiology team, correctly identifying the patient name, date of , procedure, anatomy (including marking of site and side), patient position, relevant diagnostic and radiology test results, safety precautions, and procedure-specific equipment needs. The procedure, along with the risks (including, but not limited to, infection and bleeding), benefits, and alternatives, was explained to the patient by the performing physician. The patient agreed to undergo the procedure. Medications and allergies were also reviewed. The radiologist, assisting radiologist, and technologist were present throughout the entire procedure. Participation of a fellow, resident, medical student, or advanced practice provider student in performing the sensitive examination was discussed with the patient or authorized customer success representative. The patient or authorized customer success representative has agreed to proceed with the sensitive examination. (Sensitive examination includes inspection and/or palpation of the breasts, pelvis, prostate and anorectal regions) The family and divorce legal assistant radiologist was Dr. Garcia. The family and divorce legal assistant radiologist administered local anesthesia, performed the tissue sampling and placed the biopsy marker. TECHNIQUE: The patient was studied using a dedicated breast biopsy coil in the Siemens 1.5 Manisha scanner. Initial coronal T1 localizer was obtained followed by axial T1-weighted GRE imaging both before and after 14 mL of Dotarem. Subsequently, the lesion was localized on an independent workstation. PROCEDURE: Correlation is made to exams dated: 04/13/2024 (MRI), 05/20/2024 and 05/20/2024 (mammogram). Site 1: Non-mass enhancement in the upper outer quadrant, anterior depth, stoplight biopsy marker The family and divorce legal assistant radiologist was Dr. Garcia. The family and divorce legal assistant radiologist administered local anesthesia, performed the tissue sampling and placed the biopsy marker. Audible Time Out Time: 1235 Procedure Start Time: 1236 Procedure Stop Time: 1244 An MRI-guided biopsy was performed for the non-mass enhancement located in the right breast in the upper outer quadrant, anterior depth. This was described on the previous MRI report. The skin was prepped in the usual manner. Local anesthetic was administered. The abnormality was approached from the lateral aspect. A 9 gauge biopsy needle was placed adjacent to the abnormality under MRI guidance. Additional MRI images were obtained to document needle placement. Once the needle was documented to be in the correct location, 6 samples were obtained using the vacuum-assisted system. A stoplight biopsy marker was inserted into the biopsy cavity. A skin closure strip and a sterile dressing were applied to the access site. The specimen was sent to the laboratory for pathological analysis. Post-procedure mammogram: The stoplight biopsy marker is in appropriate position at the non-mass enhancement in the upper outer quadrant, anterior depth. There is a nearby Q clip from recent ultrasound guided biopsy. Site 2: Non-mass enhancement in the upper outer quadrant, middle depth, buckle biopsy marker The family and divorce legal assistant radiologist was Dr. Garcia. The family and divorce legal assistant radiologist administered local anesthesia, performed the tissue sampling and placed the biopsy marker. Audible Time Out Time: 1235 Procedure Start Time: 1236 Procedure Stop Time: 1246 An MRI biopsy was performed for the non-mass enhancement located in the right breast in the upper outer quadrant. This was described on the previous MRI report. The skin was prepped in the usual manner. Local anesthetic was administered. The abnormality was approached from the lateral aspect. A 9 gauge biopsy needle was placed adjacent to the abnormality under MRI guidance. Additional MRI images were obtained to document needle placement. Once the needle was documented to be in the correct location, 6 samples were obtained using the vacuum-assisted system. A buckle biopsy marker was inserted into the biopsy cavity.A skin closure strip and a sterile dressing were zunilda (more content not included)... DIVISION OF RADIOLOGY Provider, [facility] - 05/27/2024 * * *Final Report* * * DATE OF EXAM: May 27 2024 1:26PM LC 0629 - МАРИЯ DIAG Ben KILLIAN RT / PROCEDURE REASON: Abnormal finding on radiology exam * * * * Physician Interpretation * * * * RESULT: [address] [place] [address] #[id number] - MRI BREAST BX WO/W IVCON RT #[id number] - MRI BREAST BX ADDL LES RT #[id number] - МАРИЯ DIAG W CONSTANTIN RT HISTORY: 43 year old patient presents for MRI-guided biopsy of the following, identified on recent MRI: Site 1: Non-mass enhancement located in the right breast in the upper outer quadrant, anterior depth Site 2: Non-mass enhancement located in the right breast in the upper outer quadrant, middle depth PATIENT CONSENT: A time out was performed immediately prior to procedure start with the radiology team, correctly identifying the patient name, date of , procedure, anatomy (including marking of site and side), patient position, relevant diagnostic and radiology test results, safety precautions, and procedure-specific equipment needs. The procedure, along with the risks (including, but not limited to, infection and bleeding), benefits, and alternatives, was explained to the patient by the performing physician. The patient agreed to undergo the procedure. Medications and allergies were also reviewed. The radiologist, assisting radiologist, and technologist were present throughout the entire procedure. Participation of a fellow, resident, medical student, or advanced practice provider student in performing the sensitive examination was discussed with the patient or authorized customer success representative. The patient or authorized customer success representative has agreed to proceed with the sensitive examination. (Sensitive examination includes inspection and/or palpation of the breasts, pelvis, prostate and anorectal regions) The family and divorce legal assistant radiologist was Dr. Garcia. The family and divorce legal assistant radiologist administered local anesthesia, performed the tissue sampling and placed the biopsy marker. TECHNIQUE: The patient was studied using a dedicated breast biopsy coil in the Siemens 1.5 Manisha scanner. Initial coronal T1 localizer was obtained followed by axial T1-weighted GRE imaging both before and after 14 mL of Dotarem. Subsequently, the lesion was localized on an independent workstation. PROCEDURE: Correlation is made to exams dated: 04/13/2024 (MRI), 05/20/2024 and 05/20/2024 (mammogram). Site 1: Non-mass enhancement in the upper outer quadrant, anterior depth, stoplight biopsy marker The family and divorce legal assistant radiologist was Dr. Garcia. The family and divorce legal assistant radiologist administered local anesthesia, performed the tissue sampling and placed the biopsy marker. Audible Time Out Time: 1235 Procedure Start Time: 1236 Procedure Stop Time: 1244 An MRI-guided biopsy was performed for the non-mass enhancement located in the right breast in the upper outer quadrant, anterior depth. This was described on the previous MRI report. The skin was prepped in the usual manner. Local anesthetic was administered. The abnormality was approached from the lateral aspect. A 9 gauge biopsy needle was placed adjacent to the abnormality under MRI guidance. Additional MRI images were obtained to document needle placement. Once the needle was documented to be in the correct location, 6 samples were obtained using the vacuum-assisted system. A stoplight biopsy marker was inserted into the biopsy cavity. A skin closure strip and a sterile dressing were applied to the access site. The specimen was sent to the laboratory for pathological analysis. Post-procedure mammogram: The stoplight biopsy marker is in appropriate position at the non-mass enhancement in the upper outer quadrant, anterior depth. There is a nearby Q clip from recent ultrasound guided biopsy. Site 2: Non-mass enhancement in the upper outer quadrant, middle depth, buckle biopsy marker The family and divorce legal assistant radiologist was Dr. Garcia. The family and divorce legal assistant radiologist administered local anesthesia, performed the tissue sampling and placed the biopsy marker. Audible Time Out Time: 1235 Procedure Start Time: 1236 Procedure Stop Time: 1246 An MRI biopsy was performed for the non-mass enhancement located in the right breast in the upper outer quadrant. This was described on the previous MRI report. The skin was prepped in the usual manner. Local anesthetic was administered. The abnormality was approached from the lateral aspect. A 9 gauge biopsy needle was placed adjacent to the abnormality under MRI guidance. Additional MRI images were obtained to document needle placement. Once the needle was documented to be in the correct location, 6 samples were obtained using the vacuum-assisted system. A buckle biopsy marker was inserted into th (more content not included)... [facility] МАРИЯ DIAG W CONSTANTIN RTon 025 МАРИЯ Bloom CONSTANTIN RT * * *Final Report* * * * * * SEE BOTTOM OF REPORT FOR ADDENDED TEXT * * * DATE OF EXAM: May 27 2024 1:26PM Ben 0629 - МАРИЯ Bloom CONSTANTIN RT / PROCEDURE REASON: Abnormal finding on radiology exam * * * * Physician Interpretation * * * * [address] [address] - - - - - - - - - - ADDENDED REPORT - - - - - - - - - - 05/28/2024 at 15:28:10 Addendum: The final pathology results of the patient's mri guided core biopsy demonstrate the following: Site 1 - (right breast) A. 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 This is concordant with the imaging findings. Site 2 - (right breast) B. Right Breast, Second Site, Superior, Middle Depth, Core Biopsy, Buckle Clip Placement: - Atypical Ductal Hyperplasia (Adh), Bordering On Ductal Carcinoma In-Situ (Dcis). [facility] 05/28/24 electronically Signed By Jovani Claudio MD On 05/28/2024 at 1155 Edt This is concordant with the imaging findings. RECOMMENDATION Site 1: Surgical consultation A breast imaging nurse navigator contacted the patient with the results and recommendations. Surgical consultation is recommended. The patient was assisted in scheduling surgical consultation. Note is made that Breast MRI appearance at the time of the biopsy was complex and additional further MRI biopsy right breast may be indicated pending surgical plan. The patient was notified of the above results via telephone on 05/28/2024. Interpreting Radiologist: Makayla Win M.D. Electronically signed on: 05/28/2024 - - - - - - - - - - ORIGINAL REPORT - - - - - - - - - - #[id number] - MRI BREAST BX WO/W IVCON RT #[id number] - MRI BREAST BX ADDL LES RT #[id number] - [facility] DIAG W CONSTANTIN RT HISTORY: 43 year old patient presents for MRI-guided biopsy of the following, identified on recent MRI: Site 1: Non-mass enhancement located in the right breast in the upper outer quadrant, anterior depth Site 2: Non-mass enhancement located in the right breast in the upper outer quadrant, middle depth PATIENT CONSENT: A time out was performed immediately prior to procedure start with the radiology team, correctly identifying the patient name, date of , procedure, anatomy (including marking of site and side), patient position, relevant diagnostic and radiology test results, safety precautions, and procedure-specific equipment needs. The procedure, along with the risks (including, but not limited to, infection and bleeding), benefits, and alternatives, was explained to the patient by the performing physician. The patient agreed to undergo the procedure. Medications and allergies were also reviewed. The radiologist, assisting radiologist, and technologist were present throughout the entire procedure. Participation of a fellow, resident, medical student, or advanced practice provider student in performing the sensitive examination was discussed with the patient or authorized customer success representative. The patient or authorized customer success representative has agreed to proceed with the sensitive examination. (Sensitive examination includes inspection and/or palpation of the breasts, pelvis, prostate and anorectal regions) The family and divorce legal assistant radiologist was Dr. Garcia. The family and divorce legal assistant radiologist administered local anesthesia, performed the tissue sampling and placed the biopsy marker. TECHNIQUE: The patient was studied using a dedicated breast biopsy coil in the Siemens 1.5 Manisha scanner. Initial coronal T1 localizer was obtained followed by axial T1-weighted GRE imaging both before and after 14 mL of Dotarem. Subsequently, the lesion was localized on an independent workstation. PROCEDURE: Correlation is made to exams dated: 04/13/2024 (MRI), 05/20/2024 and 05/20/2024 (mammogram). Site 1: Non-mass enhancement in the upper outer quadrant, anterior depth, stoplight biopsy marker The family and divorce legal assistant radiologist was Dr. Garcia. The family and divorce legal assistant radiologist administered local anesthesia, performed the tissue sampling and placed the biopsy marker. Audible Time Out Time: 1235 Procedure Start Time: 1236 Procedure Stop Time: 1244 An MRI-guided biopsy was performed for the non-mass enhancement located in the right breast in the upper outer quadrant, anterior depth. This was described on the previous MRI report. The skin was prepped in the usual manner. Local anesthetic was administered. The abnormality was approached from the lateral aspect. A 9 gauge biopsy needle was placed adjacent to the abnormality under MRI guidance. Additional MRI images were obtained to document needle placement. Once the needle was documented to be in the correct location, 6 samples were obtained using the vacuum-assisted system. A stoplight biopsy marker was inserted in (more content not included)... Normal [facility] MR Breast - right WO and W c ontrast Alfie 05-27-2024 IMPRESSION: MRI BIOP SY Site 1: MRI-guided biopsy of non-mass enhancement located in the right breast in the upper outer quadrant, anterior depth with placement of a stoplight biopsy marker was successful. Waiting for pathology result. An amendment will be issued to this report when pathology results become available. The stoplight biopsy marker is in appropriate position at the non-mass enhancement in the upper outer quadrant. Site 2: MRI-guided biopsy of non-mass enhancement located in the right breast in the upper outer quadrant, middle depth with placement of a buckle biopsy marker was successful. Waiting for pathology result. An amendment will be issued to this report when pathology results become available. The buckle biopsy marker has migrated 1 cm lateral to the non-mass enhancement in the upper outer quadrant. Interpreting Radiologist: Makayla Win M.D. Resident/Fellow: Madelaine Garcia D.O. Electronically signed on: 05/27/2024 Customs Appraiser: JD Transcribe Date/Time: May 27 2024 12:02P Dictated by : MADELAINE GARCIA DO This examination was interpreted and the report reviewed and electronically signed by: MAKAYLA WIN MD on May 27 2024 2:55PM [facility] DIVISION OF RADIOLOGY * * *Final Report* * * DATE OF EXAM: May 27 2024 12:52PM [facility] 0696 - MRI BREAST BX WO/W IVCON RT / PROCEDURE REASON: Abnormal finding on radiology exam * * * * Physician Interpretation * * * * [place] [address] #[id number] - MRI BREAST BX WO/W IVCON RT #[id number] - MRI BREAST BX ADDL LES RT #[id number] - МАРИЯ DIAG W CONSTANTIN RT HISTORY: 43 year old patient presents for MRI-guided biopsy of the following, identified on recent MRI: Site 1: Non-mass enhancement located in the right breast in the upper outer quadrant, anterior depth Site 2: Non-mass enhancement located in the right breast in the upper outer quadrant, middle depth PATIENT CONSENT: A time out was performed immediately prior to procedure start with the radiology team, correctly identifying the patient name, date of , procedure, anatomy (including marking of site and side), patient position, relevant diagnostic and radiology test results, safety precautions, and procedure-specific equipment needs. The procedure, along with the risks (including, but not limited to, infection and bleeding), benefits, and alternatives, was explained to the patient by the performing physician. The patient agreed to undergo the procedure. Medications and allergies were also reviewed. The radiologist, assisting radiologist, and technologist were present throughout the entire procedure. Participation of a fellow, resident, medical student, or advanced practice provider student in performing the sensitive examination was discussed with the patient or authorized customer success representative. The patient or authorized customer success representative has agreed to proceed with the sensitive examination. (Sensitive examination includes inspection and/or palpation of the breasts, pelvis, prostate and anorectal regions) The family and divorce legal assistant radiologist was Dr. Garcia. The family and divorce legal assistant radiologist administered local anesthesia, performed the tissue sampling and placed the biopsy marker. TECHNIQUE: The patient was studied using a dedicated breast biopsy coil in the Siemens 1.5 Manisha scanner. Initial coronal T1 localizer was obtained followed by axial T1-weighted GRE imaging both before and after 14 mL of Dotarem. Subsequently, the lesion was localized on an independent workstation. PROCEDURE: Correlation is made to exams dated: 04/13/2024 (MRI), 05/20/2024 and 05/20/2024 (mammogram). Site 1: Non-mass enhancement in the upper outer quadrant, anterior depth, stoplight biopsy marker The family and divorce legal assistant radiologist was Dr. Garcia. The family and divorce legal assistant radiologist administered local anesthesia, performed the tissue sampling and placed the biopsy marker. Audible Time Out Time: 1235 Procedure Start Time: 1236 Procedure Stop Time: 1244 An MRI-guided biopsy was performed for the non-mass enhancement located in the right breast in the upper outer quadrant, anterior depth. This was described on the previous MRI report. The skin was prepped in the usual manner. Local anesthetic was administered. The abnormality was approached from the lateral aspect. A 9 gauge biopsy needle was placed adjacent to the abnormality under MRI guidance. Additional MRI images were obtained to document needle placement. Once the needle was documented to be in the correct location, 6 samples were obtained using the vacuum-assisted system. A stoplight biopsy marker was inserted into the biopsy cavity. A skin closure strip and a sterile dressing were applied to the access site. The specimen was sent to the laboratory for pathological analysis. Post-procedure mammogram: The stoplight biopsy marker is in appropriate position at the non-mass enhancement in the upper outer quadrant, anterior depth. There is a nearby Q clip from recent ultrasound guided biopsy. Site 2: Non-mass enhancement in the upper outer quadrant, middle depth, buckle biopsy marker The family and divorce legal assistant radiologist was Dr. Garcia. The family and divorce legal assistant radiologist administered local anesthesia, performed the tissue sampling and placed the biopsy marker. Audible Time Out Time: 1235 Procedure Start Time: 1236 Procedure Stop Time: 1246 An MRI biopsy was performed for the non-mass enhancement located in the right breast in the upper outer quadrant. This was described on the previous MRI report. The skin was prepped in the usual manner. Local anesthetic was administered. The abnormality was approached from the lateral aspect. A 9 gauge biopsy needle was placed adjacent to the abnormality under MRI guidance. Additional MRI images were obtained to document needle placement. Once the needle was documented to be in the correct location, 6 samples were obtained using the vacuum-assisted system. A buckle biopsy marker was inserted into the biopsy cavity.A skin closure strip and a sterile dressing were ap (more content not included)... DIVISION OF RADIOLOGY Provider, [facility] - 05/27/2024 * * *Final Report* * * DATE OF EXAM: May 27 2024 12:52PM [facility] 0696 - MRI BREAST BX WO/W IVCON RT / PROCEDURE REASON: Abnormal finding on radiology exam * * * * Physician Interpretation * * * * [place] [address] #[id number] - MRI BREAST BX WO/W IVCON RT #[id number] - MRI BREAST BX ADDL LES RT #[id number] - МАРИЯ DIAG W CONSTANTIN RT HISTORY: 43 year old patient presents for MRI-guided biopsy of the following, identified on recent MRI: Site 1: Non-mass enhancement located in the right breast in the upper outer quadrant, anterior depth Site 2: Non-mass enhancement located in the right breast in the upper outer quadrant, middle depth PATIENT CONSENT: A time out was performed immediately prior to procedure start with the radiology team, correctly identifying the patient name, date of , procedure, anatomy (including marking of site and side), patient position, relevant diagnostic and radiology test results, safety precautions, and procedure-specific equipment needs. The procedure, along with the risks (including, but not limited to, infection and bleeding), benefits, and alternatives, was explained to the patient by the performing physician. The patient agreed to undergo the procedure. Medications and allergies were also reviewed. The radiologist, assisting radiologist, and technologist were present throughout the entire procedure. Participation of a fellow, resident, medical student, or advanced practice provider student in performing the sensitive examination was discussed with the patient or authorized customer success representative. The patient or authorized customer success representative has agreed to proceed with the sensitive examination. (Sensitive examination includes inspection and/or palpation of the breasts, pelvis, prostate and anorectal regions) The family and divorce legal assistant radiologist was Dr. Garcia. The family and divorce legal assistant radiologist administered local anesthesia, performed the tissue sampling and placed the biopsy marker. TECHNIQUE: The patient was studied using a dedicated breast biopsy coil in the Siemens 1.5 Manisha scanner. Initial coronal T1 localizer was obtained followed by axial T1-weighted GRE imaging both before and after 14 mL of Dotarem. Subsequently, the lesion was localized on an independent workstation. PROCEDURE: Correlation is made to exams dated: 04/13/2024 (MRI), 05/20/2024 and 05/20/2024 (mammogram). Site 1: Non-mass enhancement in the upper outer quadrant, anterior depth, stoplight biopsy marker The family and divorce legal assistant radiologist was Dr. Garcia. The family and divorce legal assistant radiologist administered local anesthesia, performed the tissue sampling and placed the biopsy marker. Audible Time Out Time: 1235 Procedure Start Time: 1236 Procedure Stop Time: 1244 An MRI-guided biopsy was performed for the non-mass enhancement located in the right breast in the upper outer quadrant, anterior depth. This was described on the previous MRI report. The skin was prepped in the usual manner. Local anesthetic was administered. The abnormality was approached from the lateral aspect. A 9 gauge biopsy needle was placed adjacent to the abnormality under MRI guidance. Additional MRI images were obtained to document needle placement. Once the needle was documented to be in the correct location, 6 samples were obtained using the vacuum-assisted system. A stoplight biopsy marker was inserted into the biopsy cavity. A skin closure strip and a sterile dressing were applied to the access site. The specimen was sent to the laboratory for pathological analysis. Post-procedure mammogram: The stoplight biopsy marker is in appropriate position at the non-mass enhancement in the upper outer quadrant, anterior depth. There is a nearby Q clip from recent ultrasound guided biopsy. Site 2: Non-mass enhancement in the upper outer quadrant, middle depth, buckle biopsy marker The family and divorce legal assistant radiologist was Dr. Garcia. The family and divorce legal assistant radiologist administered local anesthesia, performed the tissue sampling and placed the biopsy marker. Audible Time Out Time: 1235 Procedure Start Time: 1236 Procedure Stop Time: 1246 An MRI biopsy was performed for the non-mass enhancement located in the right breast in the upper outer quadrant. This was described on the previous MRI report. The skin was prepped in the usual manner. Local anesthetic was administered. The abnormality was approached from the lateral aspect. A 9 gauge biopsy needle was placed adjacent to the abnormality under MRI guidance. Additional MRI images were obtained to document needle placement. Once the needle was documented to be in the correct location, 6 samples were obtained using the vacuum-assisted system. A buckle biopsy marker was inserted into (more content not included)... [facility] MR Guidance for biopsy of [place] connelly 05-27-2024 IMPRESSION: MRI BIOP SY Site 1: MRI-guided biopsy of non-mass enhancement located in the right breast in the upper outer quadrant, anterior depth with placement of a stoplight biopsy marker was successful. Waiting for pathology result. An amendment will be issued to this report when pathology results become available. The stoplight biopsy marker is in appropriate position at the non-mass enhancement in the upper outer quadrant. Site 2: MRI-guided biopsy of non-mass enhancement located in the right breast in the upper outer quadrant, middle depth with placement of a buckle biopsy marker was successful. Waiting for pathology result. An amendment will be issued to this report when pathology results become available. The buckle biopsy marker has migrated 1 cm lateral to the non-mass enhancement in the upper outer quadrant. Interpreting Radiologist: Makayla Win M.D. Resident/Fellow: Madelaine Garcia D.O. Electronically signed on: 05/27/2024 Customs Appraiser: JD Transcrivince Date/Time: May 27 2024 12:53P Dictated by : MADELAINE GARCIA, DO This examination was interpreted and the report reviewed and electronically signed by: MAKAYLA WIN MD on May 27 2024 2:55PM [facility] DIVISION OF RADIOLOGY * * *Final Report* * * DATE OF EXAM: May 27 2024 12:53PM [facility] 0694 - MRI BREAST BX ADDL LES RT / PROCEDURE REASON: Abnormal finding on radiology exam * * * * Physician Interpretation * * * * [place] [address] #[id number] - MRI BREAST BX WO/W IVCON RT #[id number] - MRI BREAST BX ADDL LES RT #[id number] - МАРИЯ DIAG W CONSTANTIN RT HISTORY: 43 year old patient presents for MRI-guided biopsy of the following, identified on recent MRI: Site 1: Non-mass enhancement located in the right breast in the upper outer quadrant, anterior depth Site 2: Non-mass enhancement located in the right breast in the upper outer quadrant, middle depth PATIENT CONSENT: A time out was performed immediately prior to procedure start with the radiology team, correctly identifying the patient name, date of , procedure, anatomy (including marking of site and side), patient position, relevant diagnostic and radiology test results, safety precautions, and procedure-specific equipment needs. The procedure, along with the risks (including, but not limited to, infection and bleeding), benefits, and alternatives, was explained to the patient by the performing physician. The patient agreed to undergo the procedure. Medications and allergies were also reviewed. The radiologist, assisting radiologist, and technologist were present throughout the entire procedure. Participation of a fellow, resident, medical student, or advanced practice provider student in performing the sensitive examination was discussed with the patient or authorized customer success representative. The patient or authorized customer success representative has agreed to proceed with the sensitive examination. (Sensitive examination includes inspection and/or palpation of the breasts, pelvis, prostate and anorectal regions) The family and divorce legal assistant radiologist was Dr. Garcia. The family and divorce legal assistant radiologist administered local anesthesia, performed the tissue sampling and placed the biopsy marker. TECHNIQUE: The patient was studied using a dedicated breast biopsy coil in the Siemens 1.5 Manisha scanner. Initial coronal T1 localizer was obtained followed by axial T1-weighted GRE imaging both before and after 14 mL of Dotarem. Subsequently, the lesion was localized on an independent workstation. PROCEDURE: Correlation is made to exams dated: 04/13/2024 (MRI), 05/20/2024 and 05/20/2024 (mammogram). Site 1: Non-mass enhancement in the upper outer quadrant, anterior depth, stoplight biopsy marker The family and divorce legal assistant radiologist was Dr. aGrcia. The family and divorce legal assistant radiologist administered local anesthesia, performed the tissue sampling and placed the biopsy marker. Audible Time Out Time: 1235 Procedure Start Time: 1236 Procedure Stop Time: 1244 An MRI-guided biopsy was performed for the non-mass enhancement located in the right breast in the upper outer quadrant, anterior depth. This was described on the previous MRI report. The skin was prepped in the usual manner. Local anesthetic was administered. The abnormality was approached from the lateral aspect. A 9 gauge biopsy needle was placed adjacent to the abnormality under MRI guidance. Additional MRI images were obtained to document needle placement. Once the needle was documented to be in the correct location, 6 samples were obtained using the vacuum-assisted system. A stoplight biopsy marker was inserted into the biopsy cavity. A skin closure strip and a sterile dressing were applied to the access site. The specimen was sent to the laboratory for pathological analysis. Post-procedure mammogram: The stoplight biopsy marker is in appropriate position at the non-mass enhancement in the upper outer quadrant, anterior depth. There is a nearby Q clip from recent ultrasound guided biopsy. Site 2: Non-mass enhancement in the upper outer quadrant, middle depth, buckle biopsy marker The family and divorce legal assistant radiologist was Dr. Garcia. The family and divorce legal assistant radiologist administered local anesthesia, performed the tissue sampling and placed the biopsy marker. Audible Time Out Time: 1235 Procedure Start Time: 1236 Procedure Stop Time: 1246 An MRI biopsy was performed for the non-mass enhancement located in the right breast in the upper outer quadrant. This was described on the previous MRI report. The skin was prepped in the usual manner. Local anesthetic was administered. The abnormality was approached from the lateral aspect. A 9 gauge biopsy needle was placed adjacent to the abnormality under MRI guidance. Additional MRI images were obtained to document needle placement. Once the needle was documented to be in the correct location, 6 samples were obtained using the vacuum-assisted system. A buckle biopsy marker was inserted into the biopsy cavity.A skin closure strip and a sterile dressing were appl (more content not included)... DIVISION OF RADIOLOGY Provider, [facility] - 05/27/2024 * * *Final Report* * * DATE OF EXAM: May 27 2024 12:53PM [facility] 0694 - MRI BREAST BX ADDL LES RT / PROCEDURE REASON: Abnormal finding on radiology exam * * * * Physician Interpretation * * * * [address] [place] [address] #[id number] - MRI BREAST BX WO/W IVCON RT #[id number] - MRI BREAST BX ADDL LES RT #[id number] - МАРИЯ DIAG W CONSTANTIN RT HISTORY: 43 year old patient presents for MRI-guided biopsy of the following, identified on recent MRI: Site 1: Non-mass enhancement located in the right breast in the upper outer quadrant, anterior depth Site 2: Non-mass enhancement located in the right breast in the upper outer quadrant, middle depth PATIENT CONSENT: A time out was performed immediately prior to procedure start with the radiology team, correctly identifying the patient name, date of , procedure, anatomy (including marking of site and side), patient position, relevant diagnostic and radiology test results, safety precautions, and procedure-specific equipment needs. The procedure, along with the risks (including, but not limited to, infection and bleeding), benefits, and alternatives, was explained to the patient by the performing physician. The patient agreed to undergo the procedure. Medications and allergies were also reviewed. The radiologist, assisting radiologist, and technologist were present throughout the entire procedure. Participation of a fellow, resident, medical student, or advanced practice provider student in performing the sensitive examination was discussed with the patient or authorized customer success representative. The patient or authorized customer success representative has agreed to proceed with the sensitive examination. (Sensitive examination includes inspection and/or palpation of the breasts, pelvis, prostate and anorectal regions) The family and divorce legal assistant radiologist was Dr. Garcia. The family and divorce legal assistant radiologist administered local anesthesia, performed the tissue sampling and placed the biopsy marker. TECHNIQUE: The patient was studied using a dedicated breast biopsy coil in the Siemens 1.5 Manisha scanner. Initial coronal T1 localizer was obtained followed by axial T1-weighted GRE imaging both before and after 14 mL of Dotarem. Subsequently, the lesion was localized on an independent workstation. PROCEDURE: Correlation is made to exams dated: 04/13/2024 (MRI), 05/20/2024 and 05/20/2024 (mammogram). Site 1: Non-mass enhancement in the upper outer quadrant, anterior depth, stoplight biopsy marker The family and divorce legal assistant radiologist was Dr. Garcia. The family and divorce legal assistant radiologist administered local anesthesia, performed the tissue sampling and placed the biopsy marker. Audible Time Out Time: 1235 Procedure Start Time: 1236 Procedure Stop Time: 1244 An MRI-guided biopsy was performed for the non-mass enhancement located in the right breast in the upper outer quadrant, anterior depth. This was described on the previous MRI report. The skin was prepped in the usual manner. Local anesthetic was administered. The abnormality was approached from the lateral aspect. A 9 gauge biopsy needle was placed adjacent to the abnormality under MRI guidance. Additional MRI images were obtained to document needle placement. Once the needle was documented to be in the correct location, 6 samples were obtained using the vacuum-assisted system. A stoplight biopsy marker was inserted into the biopsy cavity. A skin closure strip and a sterile dressing were applied to the access site. The specimen was sent to the laboratory for pathological analysis. Post-procedure mammogram: The stoplight biopsy marker is in appropriate position at the non-mass enhancement in the upper outer quadrant, anterior depth. There is a nearby Q clip from recent ultrasound guided biopsy. Site 2: Non-mass enhancement in the upper outer quadrant, middle depth, buckle biopsy marker The family and divorce legal assistant radiologist was Dr. Garcia. The family and divorce legal assistant radiologist administered local anesthesia, performed the tissue sampling and placed the biopsy marker. Audible Time Out Time: 1235 Procedure Start Time: 1236 Procedure Stop Time: 1246 An MRI biopsy was performed for the non-mass enhancement located in the right breast in the upper outer quadrant. This was described on the previous MRI report. The skin was prepped in the usual manner. Local anesthetic was administered. The abnormality was approached from the lateral aspect. A 9 gauge biopsy needle was placed adjacent to the abnormality under MRI guidance. Additional MRI images were obtained to document needle placement. Once the needle was documented to be in the correct location, 6 samples were obtained using the vacuum-assisted system. A buckle biopsy marker was inserted into th (more content not included)... [facility] MRI BREAST BX ADDL LES RTon 05-27-2024 MRI BREAST BX ADDL LES RT * * *Final Report* * * * * * SEE BOTTOM OF REPORT FOR ADDENDED TEXT * * * DATE OF EXAM: May 27 2024 12:53PM [facility] 0694 - MRI BREAST BX ADDL LES RT / PROCEDURE REASON: Abnormal finding on radiology exam * * * * Physician Interpretation * * * * [address] [place] [address] - - - - - - - - - - ADDENDED REPORT - - - - - - - - - - 05/28/2024 at 15:28:10 Addendum: The final pathology results of the patient's mri guided core biopsy demonstrate the following: Site 1 - (right breast) A. 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 This is concordant with the imaging findings. Site 2 - (right breast) B. Right Breast, Second Site, Superior, Middle Depth, Core Biopsy, Buckle Clip Placement: - Atypical Ductal Hyperplasia (Adh), Bordering On Ductal Carcinoma In-Situ (Dcis). [facility] 05/28/24 electronically Signed By oJvani Claudio MD On 05/28/2024 at 1155 Edt This is concordant with the imaging findings. RECOMMENDATION Site 1: Surgical consultation A breast imaging nurse navigator contacted the patient with the results and recommendations. Surgical consultation is recommended. The patient was assisted in scheduling surgical consultation. Note is made that Breast MRI appearance at the time of the biopsy was complex and additional further MRI biopsy right breast may be indicated pending surgical plan. The patient was notified of the above results via telephone on 05/28/2024. Interpreting Radiologist: Makayla Win M.D. Electronically signed on: 05/28/2024 - - - - - - - - - - ORIGINAL REPORT - - - - - - - - - - #[id number] - MRI BREAST BX WO/W IVCON RT #[id number] - MRI BREAST BX ADDL LES RT #[id number] - МАРИЯ DIAG W CONSTANTIN RT HISTORY: 43 year old patient presents for MRI-guided biopsy of the following, identified on recent MRI: Site 1: Non-mass enhancement located in the right breast in the upper outer quadrant, anterior depth Site 2: Non-mass enhancement located in the right breast in the upper outer quadrant, middle depth PATIENT CONSENT: A time out was performed immediately prior to procedure start with the radiology team, correctly identifying the patient name, date of , procedure, anatomy (including marking of site and side), patient position, relevant diagnostic and radiology test results, safety precautions, and procedure-specific equipment needs. The procedure, along with the risks (including, but not limited to, infection and bleeding), benefits, and alternatives, was explained to the patient by the performing physician. The patient agreed to undergo the procedure. Medications and allergies were also reviewed. The radiologist, assisting radiologist, and technologist were present throughout the entire procedure. Participation of a fellow, resident, medical student, or advanced practice provider student in performing the sensitive examination was discussed with the patient or authorized customer success representative. The patient or authorized customer success representative has agreed to proceed with the sensitive examination. (Sensitive examination includes inspection and/or palpation of the breasts, pelvis, prostate and anorectal regions) The family and divorce legal assistant radiologist was Dr. Garcia. The family and divorce legal assistant radiologist administered local anesthesia, performed the tissue sampling and placed the biopsy marker. TECHNIQUE: The patient was studied using a dedicated breast biopsy coil in the Siemens 1.5 Manisha scanner. Initial coronal T1 localizer was obtained followed by axial T1-weighted GRE imaging both before and after 14 mL of Dotarem. Subsequently, the lesion was localized on an independent workstation. PROCEDURE: Correlation is made to exams dated: 04/13/2024 (MRI), 05/20/2024 and 05/20/2024 (mammogram). Site 1: Non-mass enhancement in the upper outer quadrant, anterior depth, stoplight biopsy marker The family and divorce legal assistant radiologist was Dr. Garcia. The family and divorce legal assistant radiologist administered local anesthesia, performed the tissue sampling and placed the biopsy marker. Audible Time Out Time: 1235 Procedure Start Time: 1236 Procedure Stop Time: 1244 An MRI-guided biopsy was performed for the non-mass enhancement located in the right breast in the upper outer quadrant, anterior depth. This was described on the previous MRI report. The skin was prepped in the usual manner. Local anesthetic was administered. The abnormality was approached from the lateral aspect. A 9 gauge biopsy needle was placed adjacent to the abnormality under MRI guidance. Additional MRI images were obtained to document needle placement. Once the needle was documented to be in the correct location, 6 samples were obtained using the vacuum-assisted system. A stoplight biopsy marker was inserted in (more content not included)... [facility] MRI BREAST BX WO/W IVCON RTo n 05-27-2024 MRI BREAST BX WO/W IVCON RT * * *Final Report* * * * * * SEE BOTTOM OF REPORT FOR ADDENDED TEXT * * * DATE OF EXAM: May 27 2024 12:52PM ABM [id number] - MRI BREAST BX WO/W IVCON RT / PROCEDURE REASON: Abnormal finding on radiology exam * * * * Physician Interpretation * * * * [address] [place] [address] - - - - - - - - - - ADDENDED REPORT - - - - - - - - - - 05/28/2024 at 15:28:10 Addendum: The final pathology results of the patient's mri guided core biopsy demonstrate the following: Site 1 - (right breast) A. 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 This is concordant with the imaging findings. Site 2 - (right breast) B. Right Breast, Second Site, Superior, Middle Depth, Core Biopsy, Buckle Clip Placement: - Atypical Ductal Hyperplasia (Adh), Bordering On Ductal Carcinoma In-Situ (Dcis). [facility] 05/28/24 electronically Signed By Jovani Claudio MD On 05/28/2024 at 1155 Edt This is concordant with the imaging findings. RECOMMENDATION Site 1: Surgical consultation A breast imaging nurse navigator contacted the patient with the results and recommendations. Surgical consultation is recommended. The patient was assisted in scheduling surgical consultation. Note is made that Breast MRI appearance at the time of the biopsy was complex and additional further MRI biopsy right breast may be indicated pending surgical plan. The patient was notified of the above results via telephone on 05/28/2024. Interpreting Radiologist: Makayla Win M.D. Electronically signed on: 05/28/2024 - - - - - - - - - - ORIGINAL REPORT - - - - - - - - - - #[id number] - MRI BREAST BX WO/W IVCON RT #[id number] - MRI BREAST BX ADDL LES RT #[id number] - МАРИЯ DIAG W CONSTANTIN RT HISTORY: 43 year old patient presents for MRI-guided biopsy of the following, identified on recent MRI: Site 1: Non-mass enhancement located in the right breast in the upper outer quadrant, anterior depth Site 2: Non-mass enhancement located in the right breast in the upper outer quadrant, middle depth PATIENT CONSENT: A time out was performed immediately prior to procedure start with the radiology team, correctly identifying the patient name, date of , procedure, anatomy (including marking of site and side), patient position, relevant diagnostic and radiology test results, safety precautions, and procedure-specific equipment needs. The procedure, along with the risks (including, but not limited to, infection and bleeding), benefits, and alternatives, was explained to the patient by the performing physician. The patient agreed to undergo the procedure. Medications and allergies were also reviewed. The radiologist, assisting radiologist, and technologist were present throughout the entire procedure. Participation of a fellow, resident, medical student, or advanced practice provider student in performing the sensitive examination was discussed with the patient or authorized customer success representative. The patient or authorized customer success representative has agreed to proceed with the sensitive examination. (Sensitive examination includes inspection and/or palpation of the breasts, pelvis, prostate and anorectal regions) The family and divorce legal assistant radiologist was Dr. Garcia. The family and divorce legal assistant radiologist administered local anesthesia, performed the tissue sampling and placed the biopsy marker. TECHNIQUE: The patient was studied using a dedicated breast biopsy coil in the Siemens 1.5 Manisha scanner. Initial coronal T1 localizer was obtained followed by axial T1-weighted GRE imaging both before and after 14 mL of Dotarem. Subsequently, the lesion was localized on an independent workstation. PROCEDURE: Correlation is made to exams dated: 04/13/2024 (MRI), 05/20/2024 and 05/20/2024 (mammogram). Site 1: Non-mass enhancement in the upper outer quadrant, anterior depth, stoplight biopsy marker The family and divorce legal assistant radiologist was Dr. Garcia. The family and divorce legal assistant radiologist administered local anesthesia, performed the tissue sampling and placed the biopsy marker. Audible Time Out Time: 1235 Procedure Start Time: 1236 Procedure Stop Time: 1244 An MRI-guided biopsy was performed for the non-mass enhancement located in the right breast in the upper outer quadrant, anterior depth. This was described on the previous MRI report. The skin was prepped in the usual manner. Local anesthetic was administered. The abnormality was approached from the lateral aspect. A 9 gauge biopsy needle was placed adjacent to the abnormality under MRI guidance. Additional MRI images were obtained to document needle placement. Once the needle was documented to be in the correct location, 6 samples were obtained using the vacuum-assisted system. A stoplight biopsy marker was inserted (more content not included)... [facility] No Panel InformationOrdered By: [facility]cf Provider on 05-27-2024 [facility] No Panel Informationon 05-27 Radiology Study observation (narrative) [facility] Pathology biopsy report Daniel (Tiss)on 05-27-2024 AP DISCLAIMER [facility] Comment on above: Order Comment: Speci men Type: TISSUE SPECIMENOrdering Facility: [facility] [place] Address: [address] [place] [address] Result Comment: Cristobal mattson Developed Test (LDT) Disclaimer: Performance characteristics of immunohistochemical, immunofluorescent, and chromogenic in-situ hybridization tests have been determined by the performing laboratory within [facility]'s [facility] Pathology and Laboratory Medicine Department ([facility], [facility], [facility], [facility], [facility], [facility], or [facility]) in a manner consistent with CLIA requirements. One or more of these tests may not have been cleared or approved by the FDA. RT-PLM is regulated under CLIA as qualified to perform high-complexity testing. These tests are used for clinical purposes. These should not be regarded as investigational or for research. Positive and negative controls stain appropriately. Performed By: #### 6 6121-5 ####[facility] LABCLIA [id number] [place] [address] [place] CASE REPORT [facility] Comment on above: Order Comment: Speci men Type: TISSUE SPECIMENOrdering Facility: [facility] [place] Address: [address] [place] [address] Result Comment: Surg ica Pathology Report Case: [id number] Authorizing Provider: Makayla Win MD Collected: 05/27/2024 12:44 PM Ordering Location: MRI A10 Received: 05/27/2024 04:44 PM Pathologist: Jovani Claudio MD Specimens: A) - Breast, Right, Core Biopsy, 1ST SITE ANTERIOR RIGHT BREAST BIOPSY STOPLIGHT CLIP Nipple discharge rule out intraductal papilloma B) - Breast, Right, Core Biopsy, 2ND SITE SUPERIOR MIDDLE DEPTH BUCKLE CLIP Nipple discharge rule out intraductal papilloma Performed By: #### 6 6121-5 ####[facility] LABCLIA [id number] [address] [place] [address] [place] DIAGNOSIS COMMENT Normal [facility] Comment on above: Order Comment: Speci men Type: TISSUE SPECIMENOrdering Facility: [facility] [place] Address: [address] [place] [address] Result Comment: Christy ct slides of Parts A and B were reviewed with Dr. Steph Chavez of the [facility] Breast Pathology Service, who concurs with the above interpretation of ductal carcinoma in-situ (DCIS) and atypical ductal hyperplasia (ADH), respectively. An immunohistochemical stain for estrogen receptor (ER) is pending, formal quantitative interpretation of which will be reported separately. [facility] 05/28/24 Performed By: #### 6 6121-5 ####[facility] LABIA [id number] [address], [place] [address] [place] FINAL DIAGNOSIS [facility] Comment on above: Order Comment: Speci men Type: TISSUE SPECIMENOrdering Facility: [facility] [place] Address: [address] [place] [address] Result Comment: A. R ight breast, first site, anterior, core biopsy, with stoplight clip placement: - Ductal carcinoma in-situ (DCIS), papillary and cribriform types, of low to intermediate nuclear grade. B. 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 RS/rs 05/28/24 at 1155 EDT Performed By: #### 6 6121-5 ####[facility] LABIA [id number] [address] [place] [address] [place] GROSS DESCRIPTION Normal [facility] Comment on above: Order Comment: Speci men Type: TISSUE SPECIMENOrdering Facility: [facility] [place] Address: [address] [place] [address] Result Comment: A. B reast, Right, Core Biopsy Received in formalin labeled as right breast are multiple segments of cylindrical tissue aggregating to 4.0 x 1.8 x 0.3 cm, tee-brown and of a soft consistency. The specimen was removed from the patient at 12:44 on 05/27/2024. On the same day, the specimen was placed in formalin at 12:46. Totally submitted in formalin in two cassettes. B. Breast, Right, Core Biopsy Received in formalin labeled as right breast are multiple segments of cylindrical tissue aggregating to 2.2 x 1.6 x 0.3 cm, tee-yellow and of a soft consistency. The specimen was removed from the patient at 12:47 on 05/27/2024. On the same day, the specimen was placed in formalin at 12:50. Totally submitted in formalin in one cassette. [facility] May 27, 2024 8:02 PM Gross examination performed at [facility], [address] [place] [address] Performed By: #### 6 6121-5 ####[facility] LABCLIA [id number] [address] OF [facility] [place] 05-24-2024 [place] Telephone (RADMN) YOLANDE GOMES ([id number]) 1980 F Date Time Provider Department 05/24/24 EWA ROUSE During your visit today, we recorded the following information about you: Ewa Rouse, RN 05/24/2024 9:58 AM Signed Called patient to notify the breast pathology results are benign per Dr. Pulliam. Informed patient a 6 month follow up is recommended. Patient verbalized understanding. Allergies As of Date: 05/24/2024 Noted Allergy Reaction PENICILLINS 07/09/2006 10 - Anaphylaxis Date Reviewed: 05/10/2024 Reviewed by: Lissette Mcleod APRN.CASE AIDE - Fully Assessed Reason for Visit: Results [95] Prescriptions as of 05/24/2024 - FLUoxetine (PROZAC) 40 mg capsule Take 40 mg by mouth once daily. - levothyroxine (SYNTHROID) 100 mcg tablet Take 1 tablet on 5 days of the week, skip on 2 days of the week (may be Friday and Friday) - eletriptan (RELPAX) 40 mg tablet TAKE 1 TABLET NEEDED FOR MIGRAINE HEADACHE (SEE ADMINISTRATION INSTRUCTIONS) AT THE ONSET OF MIGRAINE HEADACHE (1 IN 24 HOURS) - atogepant (QULIPTA) 60 mg tablet Take 1 tablet (60 mg) by mouth once daily. - Magnesium 200 mg tab Take by mouth. - SEMAGLUTIDE, WEIGHT LOSS, SUBCUTANEOUS Inject 70 Units subcutaneously one time a week. - spironolactone (ALDACTONE) 50 mg tablet - FLUoxetine HCl 20 mg tablet Take 20 mg by mouth once daily. - VITAMIN B COMPLEX-100 ORAL Take 1 tablet by mouth once daily. Problem List As Of Date 05/24/2024 Noted Resolved Polycystic Ovarian Disease [E28.2] 05/10/2009 Hypothyroidism, acquired [E03.9] 07/22/2023 Thyroid nodule [E04.1] 07/23/2023 Chronic fatigue [R53.82] 07/23/2023 Encounter Status:Closed by EWA ROUSE on 05/24/24 [facility] DBT Breast - right diagnosti c for implanton 05-20-2024 IMPRESSION: ULTRASOU ND GUIDED BIOPSY Site 1: Ultrasound-guided biopsy of the intraductal mass located in the right breast at 10 o'clock, subareolar region with placement of a Q biopsy marker. Procedure was successful. Waiting for pathology result. An amendment will be issued to this report when pathology results become available. The Q biopsy marker is in appropriate position at the intraductal mass. Interpreting Radiologist: Christine Pulliam M.D. Electronically signed on: 05/20/2024 Customs Appraiser: JD Transcribe Date/Time: May 20 2024 8:03A Dictated by : CHRISTINE PULLIAM MD This examination was interpreted and the report reviewed and electronically signed by: CHRISTINE PULLIAM MD on May 20 2024 9:18AM [facility] * * *Final Report* * * DATE OF EXAM: May 20 2024 8:55AM [facility] [employer] [facility] 0629 - [facility] NEHEMIAS KILLIAN RT / PROCEDURE REASON: Abnormal finding on radiology exam * * * * Physician Interpretation * * * * RESULT: [facility] [address] [facility]. [id number] #[id number] - [facility] US BIOPSY BREAST RT #[id number] - [facility] NEHEMIAS KILLIAN RT HISTORY: 43 year old patient presents for ultrasound guided core biopsy of the following: Site 1: Intraductal mass located in the right breast at 10 o'clock, subareolar region PATIENT CONSENT: A time out was performed immediately prior to procedure start with the radiology team, correctly identifying the patient name, date of , procedure, anatomy (including marking of site and side), patient position, relevant diagnostic and radiology test results, safety precautions, and procedure-specific equipment needs. The procedure, along with the risks (including, but not limited to, infection and bleeding), benefits, and alternatives, was explained to the patient by the performing physician. The patient agreed to undergo the procedure. Medications and allergies were also reviewed. The radiologist and technologist were present throughout the entire procedure. Correlation is made to exams dated: 07/20/2020, 12/12/2023, 05/10/2024 (mammogram) and 05/10/2024 (ultrasound). Site 1: Intraductal mass in the right breast at 10 o'clock, subareolar region Audible Time Out Time: 824 Procedure Start Time: 825 Procedure Stop Time: 838 An ultrasound-guided biopsy using real-time ultrasound was performed for the concerning intraductal mass located in the right breast at 10 o'clock, subareolar region. This was described on the previous ultrasound report. The skin was prepped in the usual manner. Local anesthetic was administered. The abnormality was approached from the <> aspect. A 14 gauge biopsy needle was placed adjacent to the abnormality under ultrasound guidance. Once the needle was documented to be in the correct location, 3 samples were obtained using a spring-loaded biopsy device. A Q biopsy marker was then placed under sonographic guidance. A skin closure strip and a sterile dressing were applied to the access site. The specimen was sent to the laboratory for pathological analysis. There were no biopsy complications observed. Post-procedure mammogram: The Q biopsy marker is in appropriate position at the intraductal mass. [facility] Provider, Landon Cinda romo [place] - 05/20/2024 * * *Final Report* * * DATE OF EXAM: May 20 2024 8:55AM W 0629 - [facility] DIAG W CONSTANTIN RT / PROCEDURE REASON: Abnormal finding on radiology exam * * * * Physician Interpretation * * * * RESULT: [facility] [address] [facility]. [address] #[id number] - [facility] US BIOPSY BREAST RT #[id number] - [facility] DIAG W CONSTANTIN RT HISTORY: 43 year old patient presents for ultrasound guided core biopsy of the following: Site 1: Intraductal mass located in the right breast at 10 o'clock, subareolar region PATIENT CONSENT: A time out was performed immediately prior to procedure start with the radiology team, correctly identifying the patient name, date of , procedure, anatomy (including marking of site and side), patient position, relevant diagnostic and radiology test results, safety precautions, and procedure-specific equipment needs. The procedure, along with the risks (including, but not limited to, infection and bleeding), benefits, and alternatives, was explained to the patient by the performing physician. The patient agreed to undergo the procedure. Medications and allergies were also reviewed. The radiologist and technologist were present throughout the entire procedure. Correlation is made to exams dated: 07/20/2020, 12/12/2023, 05/10/2024 (mammogram) and 05/10/2024 (ultrasound). Site 1: Intraductal mass in the right breast at 10 o'clock, subareolar region Audible Time Out Time: 824 Procedure Start Time: 825 Procedure Stop Time: 838 An ultrasound-guided biopsy using real-time ultrasound was performed for the concerning intraductal mass located in the right breast at 10 o'clock, subareolar region. This was described on the previous ultrasound report. The skin was prepped in the usual manner. Local anesthetic was administered. The abnormality was approached from the <> aspect. A 14 gauge biopsy needle was placed adjacent to the abnormality under ultrasound guidance. Once the needle was documented to be in the correct location, 3 samples were obtained using a spring-loaded biopsy device. A Q biopsy marker was then placed under sonographic guidance. A skin closure strip and a sterile dressing were applied to the access site. The specimen was sent to the laboratory for pathological analysis. There were no biopsy complications observed. Post-procedure mammogram: The Q biopsy marker is in appropriate position at the intraductal mass. IMPRESSION IMPRESSION: ULTRASOUND GUIDED BIOPSY Site 1: Ultrasound-guided biopsy of the intraductal mass located in the right breast at 10 o'clock, subareolar region with placement of a Q biopsy marker. Procedure was successful. Waiting for pathology result. An amendment will be issued to this report when pathology results become available. The Q biopsy marker is in appropriate position at the intraductal mass. Interpreting Radiologist: Christine Pulliam M.D. Electronically signed on: 05/20/2024 Customs Appraiser: JD Transcribe Date/Time: May 20 2024 8:03A Dictated by : CHRISTINE PULLIAM MD This examination was interpreted and the report reviewed and electronically signed by: CHRISTINE PULLIAM MD on May 20 2024 9:18AM EST [facility] Radiology Study observation (narrative) [facility] МАРИЯ ANNEon 025 МАРИЯ ANNE * * *Final Report* * * * * * SEE BOTTOM OF REPORT FOR ADDENDED TEXT * * * DATE OF EXAM: May 20 2024 8:55AM [facility] 06[facility] - [facility] NEHEMIAS KILLIAN RT / PROCEDURE REASON: Abnormal finding on radiology exam * * * * Physician Interpretation * * * * RESULT: [facility] [address] [facility]. [id number] - - - - - - - - - - ADDENDED REPORT - - - - - - - - - - 05/24/2024 at 10:06:44 Addendum: The final pathology results of the patient's ultrasound guided core biopsy demonstrate the following: Site 1 - (right breast) A. Right Breast at 10 O'Clock, Subareolar, Ultrasound-Guided Core Biopsy With Q-Clip Placement: - Minute Fragments of Fibrovascular and Adipose Tissue. - No Breast Ducts Or Intraductal Lesion Present For Review. Electronically Signed By Sabina Joseph MD On 05/21/2024 at 1459 Edt This is concordant with the imaging findings. RECOMMENDATION Site 1: Six month follow up mammogram and ultrasound i is recommended. Given ultrasound findings suggestive on an intraductal mass, beast MRI is recommended for further evaluation. Findings and recommendations were discussed with the patient over the phone on 05/24/2024. Interpreting Radiologist: Christine Pulliam M.D. Electronically signed on: 05/24/2024 - - - - - - - - - - ORIGINAL REPORT - - - - - - - - - - #[id number] - [facility] US BIOPSY BREAST RT #[id number] - [facility] NEHEMIAS W CONSTANTIN RT HISTORY: 43 year old patient presents for ultrasound guided core biopsy of the following: Site 1: Intraductal mass located in the right breast at 10 o'clock, subareolar region PATIENT CONSENT: A time out was performed immediately prior to procedure start with the radiology team, correctly identifying the patient name, date of , procedure, anatomy (including marking of site and side), patient position, relevant diagnostic and radiology test results, safety precautions, and procedure-specific equipment needs. The procedure, along with the risks (including, but not limited to, infection and bleeding), benefits, and alternatives, was explained to the patient by the performing physician. The patient agreed to undergo the procedure. Medications and allergies were also reviewed. The radiologist and technologist were present throughout the entire procedure. Correlation is made to exams dated: 07/20/2020, 12/12/2023, 05/10/2024 (mammogram) and 05/10/2024 (ultrasound). Site 1: Intraductal mass in the right breast at 10 o'clock, subareolar region Audible Time Out Time: 824 Procedure Start Time: 825 Procedure Stop Time: 838 An ultrasound-guided biopsy using real-time ultrasound was performed for the concerning intraductal mass located in the right breast at 10 o'clock, subareolar region. This was described on the previous ultrasound report. The skin was prepped in the usual manner. Local anesthetic was administered. The abnormality was approached from the <> aspect. A 14 gauge biopsy needle was placed adjacent to the abnormality under ultrasound guidance. Once the needle was documented to be in the correct location, 3 samples were obtained using a spring-loaded biopsy device. A Q biopsy marker was then placed under sonographic guidance. A skin closure strip and a sterile dressing were applied to the access site. The specimen was sent to the laboratory for pathological analysis. There were no biopsy complications observed. Post-procedure mammogram: The Q biopsy marker is in appropriate position at the intraductal mass. IMPRESSION: ULTRASOUND GUIDED BIOPSY Site 1: Ultrasound-guided biopsy of the intraductal mass located in the right breast at 10 o'clock, subareolar region with placement of a Q biopsy marker. Procedure was successful. Waiting for pathology result. An amendment will be issued to this report when pathology results become available. The Q biopsy marker is in appropriate position at the intraductal mass. Interpreting Radiologist: Christine Pulliam M.D. Electronically signed on: 05/20/2024 Customs Appraiser: JD Transcribe Date/Time: May 20 2024 8:03A Dictated by : CHRISTINE PULLIAM MD This examination was interpreted and the report reviewed and electronically signed by: CHRISTINE PULLIAM MD on May 20 2024 9:18AM EST This document has been addended by: CHRISTINE PULLIAM MD on May 24 2024 10:06AM EST [id number] Normal [facility] US BIOPSY BREAST RTon [facility] US BIOPSY BREAST RT * * *Final Report* * * * * * SEE BOTTOM OF REPORT FOR ADDENDED TEXT * * * DATE OF EXAM: May 20 2024 8:42AM [facility] 0598 - [facility] US BIOPSY BREAST RT / PROCEDURE REASON: Abnormal finding on radiology exam * * * * Physician Interpretation * * * * RESULT: [facility] [address] [facility]. [id number] - - - - - - - - - - ADDENDED REPORT - - - - - - - - - - 05/24/2024 at 10:06:44 Addendum: The final pathology results of the patient's ultrasound guided core biopsy demonstrate the following: Site 1 - (right breast) A. Right Breast at 10 O'Clock, Subareolar, Ultrasound-Guided Core Biopsy With Q-Clip Placement: - Minute Fragments of Fibrovascular and Adipose Tissue. - No Breast Ducts Or Intraductal Lesion Present For Review. Electronically Signed By Sabina Joseph MD On 05/21/2024 at 1459 Edt This is concordant with the imaging findings. RECOMMENDATION Site 1: Six month follow up mammogram and ultrasound i is recommended. Given ultrasound findings suggestive on an intraductal mass, beast MRI is recommended for further evaluation. Findings and recommendations were discussed with the patient over the phone on 05/24/2024. Interpreting Radiologist: Christine Pulliam M.D. Electronically signed on: 05/24/2024 - - - - - - - - - - ORIGINAL REPORT - - - - - - - - - - #[id number] - [facility] US BIOPSY BREAST RT #[id number] - [facility] NE[place]MIAS W CONSTANTIN RT HISTORY: 43 year old patient presents for ultrasound guided core biopsy of the following: Site 1: Intraductal mass located in the right breast at 10 o'clock, subareolar region PATIENT CONSENT: A time out was performed immediately prior to procedure start with the radiology team, correctly identifying the patient name, date of , procedure, anatomy (including marking of site and side), patient position, relevant diagnostic and radiology test results, safety precautions, and procedure-specific equipment needs. The procedure, along with the risks (including, but not limited to, infection and bleeding), benefits, and alternatives, was explained to the patient by the performing physician. The patient agreed to undergo the procedure. Medications and allergies were also reviewed. The radiologist and technologist were present throughout the entire procedure. Correlation is made to exams dated: 07/20/2020, 12/12/2023, 05/10/2024 (mammogram) and 05/10/2024 (ultrasound). Site 1: Intraductal mass in the right breast at 10 o'clock, subareolar region Audible Time Out Time: 824 Procedure Start Time: 825 Procedure Stop Time: 838 An ultrasound-guided biopsy using real-time ultrasound was performed for the concerning intraductal mass located in the right breast at 10 o'clock, subareolar region. This was described on the previous ultrasound report. The skin was prepped in the usual manner. Local anesthetic was administered. The abnormality was approached from the <> aspect. A 14 gauge biopsy needle was placed adjacent to the abnormality under ultrasound guidance. Once the needle was documented to be in the correct location, 3 samples were obtained using a spring-loaded biopsy device. A Q biopsy marker was then placed under sonographic guidance. A skin closure strip and a sterile dressing were applied to the access site. The specimen was sent to the laboratory for pathological analysis. There were no biopsy complications observed. Post-procedure mammogram: The Q biopsy marker is in appropriate position at the intraductal mass. IMPRESSION: ULTRASOUND GUIDED BIOPSY Site 1: Ultrasound-guided biopsy of the intraductal mass located in the right breast at 10 o'clock, subareolar region with placement of a Q biopsy marker. Procedure was successful. Waiting for pathology result. An amendment will be issued to this report when pathology results become available. The Q biopsy marker is in appropriate position at the intraductal mass. Interpreting Radiologist: Christine Pulliam M.D. Electronically signed on: 05/20/2024 Customs Appraiser: JD Transcribe Date/Time: May 20 2024 8:01A Dictated by : CHRISTINE PULLIMA MD This examination was interpreted and the report reviewed and electronically signed by: CHRISTINE PULLIAM MD on May 20 2024 9:18AM EST This document has been addended by: CHRISTINE PULLIAM MD on May 24 2024 10:06AM EST [id number] [facility] No Panel InformationOrdered By: Ccf Provider on 05-20-2024 [facility] Pathology biopsy report Daniel (Tiss)on 05-20-2024 AP DISCLAIMER [facility] Comment on above: Order Comment: Speci men Type: TISSUE SPECIMEN Ordering Facility: [facility] Address: [address] [place] [address] Result Comment: Cristobal Gomez Test (LDT) Disclaimer: Performance characteristics of immunohistochemical, immunofluorescent, and chromogenic in-situ hybridization tests have been determined by the performing laboratory within [facility]'s [facility] Pathology and Laboratory Medicine Department ([facility], [facility], [facility], [facility], [facility], [facility], or [facility]) in a manner consistent with CLIA requirements. One or more of these tests may not have been cleared or approved by the FDA. [facility] is regulated under CLIA as qualified to perform high-complexity testing. These tests are used for clinical purposes. These should not be regarded as investigational or for research. Positive and negative controls stain appropriately. Performed By: #### 6 6121-5 #### [facility] CLIA [id number] [address] [place] [address] LAB CLIA [id number] [address] [place] [address] [place] CASE REPORT Normal [facility] Comment on above: Order Comment: Specmarily castellanos Type: TISSUE SPECIMEN Ordering Facility: [facility] [place] Address: [address] [place] [address] Result Comment: Surg [facility] Pathology Report Case: [id number] Authorizing Provider: Christine Pulliam MD Collected: 05/20/2024 08:33 AM Ordering Location: [facility] Radiology Received: 05/20/2024 10:00 AM Mammography Pathologist: Sabina Joseph MD Specimen: Breast, Right, Core Biopsy, right breast; subareolar; 10:00; 0.6cm intraductal mass; Q clip Performed By: #### 6 6121-5 #### [facility] CLIA [id number] [address] [place] [address] LAB CLIA [id number] [address] [place] [address] FINAL DIAGNOSIS Normal [facility] Comment on above: Order Comment: Lacey castellanos Type: TISSUE SPECIMEN Ordering Facility: [facility] [place] Address: [address] [place] [address] Result Comment: A. R ight breast at 10 o'clock, subareolar, ultrasound-guided core biopsy with Q-clip placement: - Minute fragments of fibrovascular and adipose tissue. - No breast ducts or intraductal lesion present for review. at 1459 EDT Performed By: #### 6 6121-5 #### [facility] CLIA [id number] [address] [place] [address] LAB CLIA [id number] [address] [place] [address] [place] FINAL PERFORMING LAB [facility] Comment on above: Order Comment: Speci men Type: TISSUE SPECIMEN Ordering Facility: [facility] [place] Address: [address] [place] [address] Result Comment: Diag nostic interpretation performed at: [facility], [address] [place] [address] CLIA# [id number] Overlock Sleeve Setter: Tejal Chavarria MD Performed By: #### 6 6121-5 #### [facility] CLIA [id number] [address] [place] [address] [place] [facility] CLIA [id number] [address] [place] [address] [place] GROSS DESCRIPTION [facility] Comment on above: Order Comment: Speci men Type: TISSUE SPECIMEN Ordering Facility: [facility] [place] Address: [address] [place] [address] Result Comment: Ani mabry, Right, Core Biopsy Received in formalin labeled as right breast are multiple segments of cylindrical tissue aggregating to 1.6 x 0.4 x 0.1 cm, tee-pink to red-brown and of a soft consistency. The specimen was removed from the patient at 8:33 on 05/20/2024 eight. On the same day, the specimen was placed in formalin at 8:33. Totally submitted in formalin in one cassette. AJB May 20, 2024 1:38 PM Gross examination performed at [facility], [address] [place] [address] Performed By: #### 6 6121-5 #### [facility] CLIA [id number] [address] [place] [address] [place] [facility] CLIA [id number] [address] [place] [address] [place] US Guidance for biopsy of Br east - righton 05-20-2024 IMPRESSION: ULTRASOU ND GUIDED BIOPSY Site 1: Ultrasound-guided biopsy of the intraductal mass located in the right breast at 10 o'clock, subareolar region with placement of a Q biopsy marker. Procedure was successful. Waiting for pathology result. An amendment will be issued to this report when pathology results become available. The Q biopsy marker is in appropriate position at the intraductal mass. Interpreting Radiologist: Christine Pulliam M.D. Electronically signed on: 05/20/2024 Customs Appraiser: JD Cheungrivince Date/Time: May 20 2024 8:01A Dictated by : CHRISTINE PULLIAM MD This examination was interpreted and the report reviewed and electronically signed by: CHRISTINE PULLIAM MD on May 20 2024 9:18AM [facility] * * *Final Report* * * DATE OF EXAM: May 20 2024 8:42AM [facility] - [facility] US BIOPSY BREAST RT / PROCEDURE REASON: Abnormal finding on radiology exam * * * * Physician Interpretation * * * * RESULT: [facility] [address] [facility]. [address] #[id number] - [facility] US BIOPSY BREAST RT #[id number] - [facility] DIAG W CONSTANTIN RT HISTORY: 43 year old patient presents for ultrasound guided core biopsy of the following: Site 1: Intraductal mass located in the right breast at 10 o'clock, subareolar region PATIENT CONSENT: A time out was performed immediately prior to procedure start with the radiology team, correctly identifying the patient name, date of , procedure, anatomy (including marking of site and side), patient position, relevant diagnostic and radiology test results, safety precautions, and procedure-specific equipment needs. The procedure, along with the risks (including, but not limited to, infection and bleeding), benefits, and alternatives, was explained to the patient by the performing physician. The patient agreed to undergo the procedure. Medications and allergies were also reviewed. The radiologist and technologist were present throughout the entire procedure. Correlation is made to exams dated: 07/20/2020, 12/12/2023, 05/10/2024 (mammogram) and 05/10/2024 (ultrasound). Site 1: Intraductal mass in the right breast at 10 o'clock, subareolar region Audible Time Out Time: 824 Procedure Start Time: 825 Procedure Stop Time: 838 An ultrasound-guided biopsy using real-time ultrasound was performed for the concerning intraductal mass located in the right breast at 10 o'clock, subareolar region. This was described on the previous ultrasound report. The skin was prepped in the usual manner. Local anesthetic was administered. The abnormality was approached from the <> aspect. A 14 gauge biopsy needle was placed adjacent to the abnormality under ultrasound guidance. Once the needle was documented to be in the correct location, 3 samples were obtained using a spring-loaded biopsy device. A Q biopsy marker was then placed under sonographic guidance. A skin closure strip and a sterile dressing were applied to the access site. The specimen was sent to the laboratory for pathological analysis. There were no biopsy complications observed. Post-procedure mammogram: The Q biopsy marker is in appropriate position at the intraductal mass. [facility] Provider, Landon Loo [facility] - 05/20/2024 * * *Final Report* * * DATE OF EXAM: May 20 2024 8:42AM [facility] - [facility] US BIOPSY BREAST RT / PROCEDURE REASON: Abnormal finding on radiology exam * * * * Physician Interpretation * * * * RESULT: [facility] [address] [facility]. [address] #[id number] - [facility] US BIOPSY BREAST RT #[id number] - [facility] NEHEMIAS KILLIAN RT HISTORY: 43 year old patient presents for ultrasound guided core biopsy of the following: Site 1: Intraductal mass located in the right breast at 10 o'clock, subareolar region PATIENT CONSENT: A time out was performed immediately prior to procedure start with the radiology team, correctly identifying the patient name, date of , procedure, anatomy (including marking of site and side), patient position, relevant diagnostic and radiology test results, safety precautions, and procedure-specific equipment needs. The procedure, along with the risks (including, but not limited to, infection and bleeding), benefits, and alternatives, was explained to the patient by the performing physician. The patient agreed to undergo the procedure. Medications and allergies were also reviewed. The radiologist and technologist were present throughout the entire procedure. Correlation is made to exams dated: 07/20/2020, 12/12/2023, 05/10/2024 (mammogram) and 05/10/2024 (ultrasound). Site 1: Intraductal mass in the right breast at 10 o'clock, subareolar region Audible Time Out Time: 824 Procedure Start Time: 825 Procedure Stop Time: 838 An ultrasound-guided biopsy using real-time ultrasound was performed for the concerning intraductal mass located in the right breast at 10 o'clock, subareolar region. This was described on the previous ultrasound report. The skin was prepped in the usual manner. Local anesthetic was administered. The abnormality was approached from the <> aspect. A 14 gauge biopsy needle was placed adjacent to the abnormality under ultrasound guidance. Once the needle was documented to be in the correct location, 3 samples were obtained using a spring-loaded biopsy device. A Q biopsy marker was then placed under sonographic guidance. A skin closure strip and a sterile dressing were applied to the access site. The specimen was sent to the laboratory for pathological analysis. There were no biopsy complications observed. Post-procedure mammogram: The Q biopsy marker is in appropriate position at the intraductal mass. IMPRESSION IMPRESSION: ULTRASOUND GUIDED BIOPSY Site 1: Ultrasound-guided biopsy of the intraductal mass located in the right breast at 10 o'clock, subareolar region with placement of a Q biopsy marker. Procedure was successful. Waiting for pathology result. An amendment will be issued to this report when pathology results become available. The Q biopsy marker is in appropriate position at the intraductal mass. Interpreting Radiologist: Christine Pulliam M.D. Electronically signed on: 05/20/2024 Customs Appraiser: JD Transcribe Date/Time: May 20 2024 8:01A Dictated by : CHRISTINE PULLIAM MD This examination was interpreted and the report reviewed and electronically signed by: CHRISTINE PULLIAM MD on May 20 2024 9:18AM EST [facility] Radiology Study observation (narrative) [facility] CNOVon 05-10-2024 CNOV Office Visit (BRCRMN ) YOLANDE GOMES ([id number]) 1980 F Date Time Provider Department 05/10/24 10:00 AM LISSETTE MCLEOD During your visit today, we recorded the following information about you: Weight Height Last Period 70.3 kg 1.575 m 04/23/24 Lissette Mcleod APRN.CNP 05/10/2024 3:26 PM Signed MEDICAL BREAST PATIENT NAME: Yolande Gomes May 10, 2024 REFERRAL: She is self referred for an opinion regarding right bloody nipple discharge and abnormal breast MRI from OSH. HISTORY of PRESENT ILLNESS: Yolande Gomes is a 43 year old premenopausal female who presents to the [facility] today for an evaluation of right bloody nipple discharge and a second opinion regarding abnormal breast MRI at OSH on 04/13/2024. The patient denies any breast masses or skin changes. She reports right bloody nipple discharge since December of 2023. She experienced one episode of bloody nipple discharge during sexual activity and then thought nothing of it. Then, in February 2024 she noticed bloody discharge on her tank top. The discharge is occasionally spontaneous but will also occur with pressure applied to her breasts. Endorses the discharge is bloody/clear. She believes it comes from multiple ducts. In there was a little bit of brownish white discharge. Denies any breast injuries. No exogenous hormonal use. She has been experiencing right breast pain that starts at her shoulder, and moves around towards her rib pain. 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 She has seen her PCP for this concern. Had X-rays, CT scan and everything was clear. 05/05/[address] Jesse Ruiz: MRI 04/13/24 and recent mammogram 12/12/23 were reviewed. Outside report details non-mass enhancement in the upper outer right breast for which complete diagnostic evaluation with mammogram and possible ultrasound is recommended. Magnification views of the upper outer right breast are recommended with evaluation for any suspicious calcifications or architectural distortion. Next step: Diagnostic mammogram and ultrasound and consultation to medical breast for reported nipple discharge. 04/28/2024 Documentation from Ewa Rouse RN. Patient had diagnostic imaging on 04/13/2024 from [facility] and the radiologists recommendations were to have a right breast MRI guided biopsy for UOQ non-mass enhancement. 04/13/2024 [facility] Breast MRI (for right bloody nipple discharge): Right breast- asymmetry prominent clumped non-mass enhancement in the right breast extending to the base of the nipple spanning approximately 2.3cm in greatest AP dimension. Addition areas on non-mass enhancement noted posteriorly including suspicious clumped linear non mass enhancement spanning 1.5cm in the upper outer middle depth. Left breast: No suspicious mass or non mass enhancement. No suspicious axillary or internal mammary lymph nodes. Visualized portions of the thoracic and abdominal viscera are unremarkable. 12/12/2023 [facility]: Bilateral screening mammogram- There are scattered areas of fibroglandular density. There are no dominant masses or suspicious calcifications. Stable bilateral fat containing axillary lymph nodes. No other significant abnormalities are identified. There has been no significant change since prior study. Genetic Testing: No Vitamin D 25 Hydroxy (ng/mL) Date Value 07/24/2023 50.2 She takes no supplements. BMD: No PERSONAL BREAST HISTORY: Breast biopsy: No Breast cysts: No Breast surgery: No Breast cancer: No CANCER SURVEILLANCE: Mammograms: 12/12/2023 ([facility]) - as above Breast MRI: 04/13/2024 ([facility]) - as above Colonoscopy: Per patient report, many years ago, had a couple polyps. RISK FACTORS FOR BREAST CANCER: Age at the onset of menses: 8 years of age. P: 0 Age at the of first child: Patient is nulliparous. Age at menopause: The patient is not menopausal at this time. She has an intact uterus and ovaries She is done childbearing and her has had a vasectomy. History of Mantle Radiation prior to the age of 28: No Obesity: 29.31 kg/m2 Weight: 155 lbs Mammographic density: There are scattered fibroglandular densities Personal History of Benign Atypical Breast Biopsy: No Alcohol use: occasional PAST MEDICAL HISTORY: Patient specifically denies history of: DVT, PE, abnormal uterine bleeding, abnormal uterine biopsies, osteopenia, and osteoporosis. +Migraines with aura (follows with neuro), hypothyroidism SOCIAL HISTORY: Social History Tobacco Use Smoking status: Never Smokeless tobacco: Former Types: Chew Tobacco commen (more content not included)... [facility] ELISEOYOLANDE Leonard ([id number]) 1980 F Date Time Provider Department 05/10/24 LISSETTE MCLEOD During your visit today, we recorded the following information about you: Lissette Mcleod APRN.CNP 05/10/2024 3:23 PM Signed Called patient and verified identity. She had a breast MRI at an OSH performed on 04/13/2024 that showed a right breast asymmetry with prominent non-mass enhancement in the right breast. Her imaging was reviewed by Dr. Ruiz on 05/05/2024. MRI 04/13/24 and recent mammogram 12/12/23 were reviewed. Outside report details non-mass enhancement in the upper outer right breast for which complete diagnostic evaluation with mammogram and possible ultrasound is recommended. Magnification views of the upper outer right breast are recommended with evaluation for any suspicious calcifications or architectural distortion. Next step: Diagnostic mammogram and ultrasound and consultation to medical breast for reported nipple discharge. Patient had diagnostic imaging performed today at the breast center at there was no sonographic correlate. Per Dr. Ruiz, she is to have an MRI guided biopsy for non-mass enhancement in the upper outer quadrant. The bilateral diagnostic mammogram report was edited today to state: 05/10/2024 at 15:13:26 Addendum: Since imaging is negative in the right upper outer quadrant, right MRI biopsy is recommended. Discussed with Lissette Mcleod who will contact the patient. Patient verbalizes her understanding. I will contact the scheduling office to help assist her with scheduling her MRI guided biopsy. In addition, I have ordered a prolactin level for her bilateral milky nipple discharge. She may complete this lab work at any [facility] facility. Patient my contact me with any questions or concerns. Lissette Mcleod APRN.RODO May 10, 2024 15:20 Allergies As of Date: 05/10/2024 Noted Allergy Reaction PENICILLINS 07/09/2006 10 - Anaphylaxis Date Reviewed: 05/10/2024 Reviewed by: Lissette Mcleod APRN.RODO - Fully Assessed Prescriptions as of 05/10/2024 - FLUoxetine (PROZAC) 40 mg capsule Take 40 mg by mouth once daily. - iv contrast (will be provided with radiology test) MRI RT Breast Bx Inject, intravenously, once for 1 dose. No IV access, insert saline lock prior to the beginning of sedation, infusion, injection of imaging exam. Discontinue saline lock post exam. If Pt has a central line or IVAD, may access for administration according to line specific nursing protocol. Once exam is complete flush line and de-access according to line specific nursing protocol in the MR contrast administration guidelines link - levothyroxine (SYNTHROID) 100 mcg tablet Take 1 tablet on 5 days of the week, skip on 2 days of the week (may be Friday and Friday) - eletriptan (RELPAX) 40 mg tablet TAKE 1 TABLET NEEDED FOR MIGRAINE HEADACHE (SEE ADMINISTRATION INSTRUCTIONS) AT THE ONSET OF MIGRAINE HEADACHE (1 IN 24 HOURS) - atogepant (QULIPTA) 60 mg tablet Take 1 tablet (60 mg) by mouth once daily. - Magnesium 200 mg tab Take by mouth. - SEMAGLUTIDE, WEIGHT LOSS, SUBCUTANEOUS Inject 70 Units subcutaneously one time a week. - spironolactone (ALDACTONE) 50 mg tablet - FLUoxetine HCl 20 mg tablet Take 20 mg by mouth once daily. - VITAMIN B COMPLEX-100 ORAL Take 1 tablet by mouth once daily. Problem List As Of Date 05/10/2024 Noted Resolved Polycystic Ovarian Disease [E28.2] 05/10/2009 Hypothyroidism, acquired [E03.9] 07/22/2023 Thyroid nodule [E04.1] 07/23/2023 Chronic fatigue [R53.82] 07/23/2023 Encounter Status:Closed by LISSETTE MCLEOD on 05/10/24 Normal [facility] DBT Breast - bilateral diagn ostic for implanton 05-10-2024 Addendum by Provider , [facility] [place] on 05/10/2024 3:18 PM EDT * * *Final Report* * * * * * SEE BOTTOM OF REPORT FOR ADDENDED TEXT * * * DATE OF EXAM: May 10 2024 10:56AM [facility] 0627 - М[facility]HE[facility] KILLIAN KELSEY / PROCEDURE REASON: multiple diagnoses * * * * Physician Interpretation * * * * RESULT: [place] [address] [facility] [place] [address] A[address] [place] [id number] - - - - - - - - - - ADDENDED REPORT - - - - - - - - - - 05/10/2024 at 15:13:26 Addendum: Since imaging is negative in the right upper outer quadrant, right MRI biopsy is recommended. Discussed with Lissette Mcleod who will contact the patient. BI-RADS Category 4: Suspicious Interpreting Radiologist: Radha Kamara M.D. Electronically signed on: 05/10/2024 - - - - - - - - - - ORIGINAL REPORT - - - - - - - - - - #[id number] - [facility] NEHEMIAS TONG #[id number] - [facility] [employer] BREAST [employer] RT #[id number] - [facility] [employer] BREAST [employer] LT HISTORY: 43 year-old patient seen for diagnostic evaluation of non-bloody discharge in both breasts and the finding(s) described on prior MRI in the right breast. Patient states no personal history of breast cancer. COMPARISON STUDIES: The present examination has been compared to prior imaging studies dated 07/20/2020 and 12/12/2023. MAMMOGRAM TECHNIQUE: The study was acquired using full field digital technology and interpreted from soft copy. Digital Breast Tomosynthesis (DBT) images were obtained and used to assist in the interpretation of this examination. MAMMOGRAM FINDINGS: The breasts are heterogeneously dense, which may obscure small masses. The right mammogram is negative in the upper outer quadrant and at the site of focal pain at 11 o'clock 3 cm from the nipple. Finding 1: There are no suspicious mammographic findings to correspond with the bloody nipple discharge in the right breast. Finding 2: There are no suspicious mammographic findings to correspond with the non-bloody nipple discharge in the left breast. ULTRASOUND TECHNIQUE: Targeted ultrasound of the indicated area was performed. Klein scale images were saved. ULTRASOUND FINDINGS: Finding 1: There is an intraductal mass measuring 0.6 x 0.2 x 0.2 cm in the right breast. Internal echotexture is hypoechoic. Color flow imaging demonstrates vascularity is present. Finding correlates to the bloody nipple discharge in the right breast. Ultrasound is negative in the right upper outer quadrant and at the site of focal pain at 11 o'clock 3 cm from the nipple. Finding 2: There are no suspicious sonographic findings to correspond with the non-bloody nipple discharge in the left breast. IMPRESSION: Finding 1: The 0.6 x 0.2 x 0.2 cm intraductal mass in the right breast is suspicious for malignancy. Ultrasound-guided biopsy is recommended. The patient scheduled a right ultrasound biopsy as she left today and signed electronic informed consent. Finding 2: There is no suspicious imaging finding to correspond with the non-bloody nipple discharge in the left breast. Return to annual screening mammogram is recommended. Annual mammogram will be due in 1 year. BI-RADS Category 4: Suspicious RISK: Based on the Tyrer-Cuzick (TC) risk assessment model, this patient has a 12.9% lifetime risk of developing breast cancer, meaning they are at average risk for developing breast cancer. However, this is only an estimate based on available history provided on the patient's questionnaire. We encourage all patients to talk with their providers about these results, further recommendations for managing breast health, and appropriate supplemental screening options if the patient has dense breast tissue. Interpreting Radiologist: Radha Kamara M.D. Electronically signed on: 05/10/2024 Customs Appraiser: JD Transcribe Date/Time: May 10 2024 10:47A Dictated by : RADHA KAMARA MD This examination was interpreted and the report reviewed and electronically signed by: RADHA KAMARA MD on May 10 2024 12:24PM EST This document has been addended by: RADHA KAMARA MD on May 10 2024 3:13PM EST [facility] МАРИЯ Johnson 2024 МАРИЯ TONG * * *Final Report* * * * * * SEE BOTTOM OF REPORT FOR ADDENDED TEXT * * * DATE OF EXAM: May 10 2024 10:56AM [facility] 0627 - МАРИЯ TONG / PROCEDURE REASON: multiple diagnoses * * * * Physician Interpretation * * * * RESULT: [place] [address] [facility] [address] [place] [id number] - - - - - - - - - - ADDENDED REPORT - - - - - - - - - - 05/10/2024 at 15:13:26 Addendum: Since imaging is negative in the right upper outer quadrant, right MRI biopsy is recommended. Discussed with Lissette Mcleod who will contact the patient. BI-RADS Category 4: Suspicious Interpreting Radiologist: Radha Kamara M.D. Electronically signed on: 05/10/2024 - - - - - - - - - - ORIGINAL REPORT - - - - - - - - - - #[id number] - [facility] NEHEMIAS W CONSTANTIN KELSEY #[id number] - [facility] [employer] BREAST [employer]TD RT #[id number] - [facility] [employer] BREAST [employer] LT HISTORY: 43 year-old patient seen for diagnostic evaluation of non-bloody discharge in both breasts and the finding(s) described on prior MRI in the right breast. Patient states no personal history of breast cancer. COMPARISON STUDIES: The present examination has been compared to prior imaging studies dated 07/20/2020 and 12/12/2023. MAMMOGRAM TECHNIQUE: The study was acquired using full field digital technology and interpreted from soft copy. Digital Breast Tomosynthesis (DBT) images were obtained and used to assist in the interpretation of this examination. MAMMOGRAM FINDINGS: The breasts are heterogeneously dense, which may obscure small masses. The right mammogram is negative in the upper outer quadrant and at the site of focal pain at 11 o'clock 3 cm from the nipple. Finding 1: There are no suspicious mammographic findings to correspond with the bloody nipple discharge in the right breast. Finding 2: There are no suspicious mammographic findings to correspond with the non-bloody nipple discharge in the left breast. ULTRASOUND TECHNIQUE: Targeted ultrasound of the indicated area was performed. Klein scale images were saved. ULTRASOUND FINDINGS: Finding 1: There is an intraductal mass measuring 0.6 x 0.2 x 0.2 cm in the right breast. Internal echotexture is hypoechoic. Color flow imaging demonstrates vascularity is present. Finding correlates to the bloody nipple discharge in the right breast. Ultrasound is negative in the right upper outer quadrant and at the site of focal pain at 11 o'clock 3 cm from the nipple. Finding 2: There are no suspicious sonographic findings to correspond with the non-bloody nipple discharge in the left breast. IMPRESSION: Finding 1: The 0.6 x 0.2 x 0.2 cm intraductal mass in the right breast is suspicious for malignancy. Ultrasound-guided biopsy is recommended. The patient scheduled a right ultrasound biopsy as she left today and signed electronic informed consent. Finding 2: There is no suspicious imaging finding to correspond with the non-bloody nipple discharge in the left breast. Return to annual screening mammogram is recommended. Annual mammogram will be due in 1 year. BI-RADS Category 4: Suspicious RISK: Based on the Tyrer-Cuzick (TC) risk assessment model, this patient has a 12.9% lifetime risk of developing breast cancer, meaning they are at average risk for developing breast cancer. However, this is only an estimate based on available history provided on the patient's questionnaire. We encourage all patients to talk with their providers about these results, further recommendations for managing breast health, and appropriate supplemental screening options if the patient has dense breast tissue. Interpreting Radiologist: Radha Kamara M.D. Electronically signed on: 05/10/2024 Customs Appraiser: JD Transcrivince Date/Time: May 10 2024 10:47A Dictated by : RADHA KAMARA MD This examination was interpreted and the report reviewed and electronically signed by: RADHA KAMARA MD on May 10 2024 12:24PM EST This document has been addended by: RADHA KAMARA MD on May 10 2024 3:13PM EST [id number] Normal [facility] [employer] US BREAST LTD LTon 05-10 [employer] US BREAST LTD LT * * *Final Report* * * * * * SEE BOTTOM OF REPORT FOR ADDENDED TEXT * * * DATE OF EXAM: May 10 2024 11:34AM [facility] 0593 - [employer] US BREAST LTD LT / PROCEDURE REASON: Nipple discharge * * * * Physician Interpretation * * * * RESULT: [address] [place] [address] - - - - - - - - - - ADDENDED REPORT - - - - - - - - - - 05/10/2024 at 15:13:26 Addendum: Since imaging is negative in the right upper outer quadrant, right MRI biopsy is recommended. Discussed with Lissette Mcleod who will contact the patient. BI-RADS Category 4: Suspicious Interpreting Radiologist: Radha Kamara M.D. Electronically signed on: 05/10/2024 - - - - - - - - - - ORIGINAL REPORT - - - - - - - - - - #[id number] - [facility] NEHEMIAS W CONSTANTIN KELSEY #[id number] - [facility] [employer] BREAST LTD RT #[id number] - [facility] [employer] BREAST LTD LT HISTORY: 43 year-old patient seen for diagnostic evaluation of non-bloody discharge in both breasts and the finding(s) described on prior MRI in the right breast. Patient states no personal history of breast cancer. COMPARISON STUDIES: The present examination has been compared to prior imaging studies dated 07/20/2020 and 12/12/2023. MAMMOGRAM TECHNIQUE: The study was acquired using full field digital technology and interpreted from soft copy. Digital Breast Tomosynthesis (DBT) images were obtained and used to assist in the interpretation of this examination. MAMMOGRAM FINDINGS: The breasts are heterogeneously dense, which may obscure small masses. The right mammogram is negative in the upper outer quadrant and at the site of focal pain at 11 o'clock 3 cm from the nipple. Finding 1: There are no suspicious mammographic findings to correspond with the bloody nipple discharge in the right breast. Finding 2: There are no suspicious mammographic findings to correspond with the non-bloody nipple discharge in the left breast. ULTRASOUND TECHNIQUE: Targeted ultrasound of the indicated area was performed. Klein scale images were saved. ULTRASOUND FINDINGS: Finding 1: There is an intraductal mass measuring 0.6 x 0.2 x 0.2 cm in the right breast. Internal echotexture is hypoechoic. Color flow imaging demonstrates vascularity is present. Finding correlates to the bloody nipple discharge in the right breast. Ultrasound is negative in the right upper outer quadrant and at the site of focal pain at 11 o'clock 3 cm from the nipple. Finding 2: There are no suspicious sonographic findings to correspond with the non-bloody nipple discharge in the left breast. IMPRESSION: Finding 1: The 0.6 x 0.2 x 0.2 cm intraductal mass in the right breast is suspicious for malignancy. Ultrasound-guided biopsy is recommended. The patient scheduled a right ultrasound biopsy as she left today and signed electronic informed consent. Finding 2: There is no suspicious imaging finding to correspond with the non-bloody nipple discharge in the left breast. Return to annual screening mammogram is recommended. Annual mammogram will be due in 1 year. BI-RADS Category 4: Suspicious RISK: Based on the Tyrer-Cuzick (TC) risk assessment model, this patient has a 12.9% lifetime risk of developing breast cancer, meaning they are at average risk for developing breast cancer. However, this is only an estimate based on available history provided on the patient's questionnaire. We encourage all patients to talk with their providers about these results, further recommendations for managing breast health, and appropriate supplemental screening options if the patient has dense breast tissue. Interpreting Radiologist: Radha Kamara M.D. Electronically signed on: 05/10/2024 Customs Appraiser: JD Transcribe Date/Time: May 10 2024 11:12A Dictated by : RADHA KAMARA MD This examination was interpreted and the report reviewed and electronically signed by: RADHA KAMARA MD on May 10 2024 12:24PM EST This document has been addended by: RADHA KMAARA MD on May 10 2024 3:13PM EST [id number] Normal [facility] US BREAST LTD RTon 05-10 [facility] US BREAST LTD RT * * *Final Report* * * * * * SEE BOTTOM OF REPORT FOR ADDENDED TEXT * * * DATE OF EXAM: May 10 2024 11:12AM [facility] 0594 - МАРИЯ US BREAST LTD RT / PROCEDURE REASON: multiple diagnoses * * * * Physician Interpretation * * * * RESULT: [address] [place] [address] - - - - - - - - - - ADDENDED REPORT - - - - - - - - - - 05/10/2024 at 15:13:26 Addendum: Since imaging is negative in the right upper outer quadrant, right MRI biopsy is recommended. Discussed with Lissette Shani who will contact the patient. BI-RADS Category 4: Suspicious Interpreting Radiologist: Radha Kamara M.D. Electronically signed on: 05/10/2024 - - - - - - - - - - ORIGINAL REPORT - - - - - - - - - - #[id number] - [facility] NEHEMIAS KILLIAN KELSEY #[id number] - [facility] BREAST LTD RT #[id number] - [facility] BREAST [facility] LT HISTORY: 43 year-old patient seen for diagnostic evaluation of non-bloody discharge in both breasts and the finding(s) described on prior MRI in the right breast. Patient states no personal history of breast cancer. COMPARISON STUDIES: The present examination has been compared to prior imaging studies dated 07/20/2020 and 12/12/2023. MAMMOGRAM TECHNIQUE: The study was acquired using full field digital technology and interpreted from soft copy. Digital Breast Tomosynthesis (DBT) images were obtained and used to assist in the interpretation of this examination. MAMMOGRAM FINDINGS: The breasts are heterogeneously dense, which may obscure small masses. The right mammogram is negative in the upper outer quadrant and at the site of focal pain at 11 o'clock 3 cm from the nipple. Finding 1: There are no suspicious mammographic findings to correspond with the bloody nipple discharge in the right breast. Finding 2: There are no suspicious mammographic findings to correspond with the non-bloody nipple discharge in the left breast. ULTRASOUND TECHNIQUE: Targeted ultrasound of the indicated area was performed. Klein scale images were saved. ULTRASOUND FINDINGS: Finding 1: There is an intraductal mass measuring 0.6 x 0.2 x 0.2 cm in the right breast. Internal echotexture is hypoechoic. Color flow imaging demonstrates vascularity is present. Finding correlates to the bloody nipple discharge in the right breast. Ultrasound is negative in the right upper outer quadrant and at the site of focal pain at 11 o'clock 3 cm from the nipple. Finding 2: There are no suspicious sonographic findings to correspond with the non-bloody nipple discharge in the left breast. IMPRESSION: Finding 1: The 0.6 x 0.2 x 0.2 cm intraductal mass in the right breast is suspicious for malignancy. Ultrasound-guided biopsy is recommended. The patient scheduled a right ultrasound biopsy as she left today and signed electronic informed consent. Finding 2: There is no suspicious imaging finding to correspond with the non-bloody nipple discharge in the left breast. Return to annual screening mammogram is recommended. Annual mammogram will be due in 1 year. BI-RADS Category 4: Suspicious RISK: Based on the Tyrer-Cuzick (TC) risk assessment model, this patient has a 12.9% lifetime risk of developing breast cancer, meaning they are at average risk for developing breast cancer. However, this is only an estimate based on available history provided on the patient's questionnaire. We encourage all patients to talk with their providers about these results, further recommendations for managing breast health, and appropriate supplemental screening options if the patient has dense breast tissue. Interpreting Radiologist: Radha Kamara M.D. Electronically signed on: 05/10/2024 Customs Appraiser: JD Transcribe Date/Time: May 10 2024 11:11A Dictated by : RADHA KAMARA MD This examination was interpreted and the report reviewed and electronically signed by: RADHA KAMARA MD on May 10 2024 12:24PM EST This document has been addended by: RADHA KAMARA MD on May 10 2024 3:13PM EST [id number] Normal [facility] No Panel InformationOrdered By: [facility] Provider on 05-10-2024 [facility] No Panel Informationon 05-10 Radiology Study observation (narrative) [facility] Prolactin SerPl-mCncon 05-10 Prolactin [Mass/Vol] 17.4 ng/mL Normal 4.4-33.8 [facility] Comment on above: Order Comment: Speci men Type: BLOOD SPECIMEN Ordering Facility: [facility] Address: [address] [place] [address] Result Comment: Prol actin test is performed using the [employer] Electrochemiluminescence Immunoassay method. Results obtained with different methods or kits cannot be used interchangeably. Performed By: #### M ICRO #### [facility] CLIA [id number] [address] [place] [address] [place] [address] [place] US Breast - left limitedon 0 05-10-2024 Addendum by Provider , [facility] [place] on 05/10/2024 3:19 PM EDT * * *Final Report* * * * * * SEE BOTTOM OF REPORT FOR ADDENDED TEXT * * * DATE OF EXAM: May 10 2024 11:34AM [facility] 0593 - [facility] [employer] BREAST [employer] LT / PROCEDURE REASON: Nipple discharge * * * * Physician Interpretation * * * * RESULT: [address] [place] [address] - - - - - - - - - - ADDENDED REPORT - - - - - - - - - - 05/10/2024 at 15:13:26 Addendum: Since imaging is negative in the right upper outer quadrant, right MRI biopsy is recommended. Discussed with Lissette Mcleod who will contact the patient. BI-RADS Category 4: Suspicious Interpreting Radiologist: Radha Kamara M.D. Electronically signed on: 05/10/2024 - - - - - - - - - - ORIGINAL REPORT - - - - - - - - - - #[id number] - [facility] DIAG W CONSTANTIN KELSEY #[id number] - [employer] RT #[id number] - [employer] LT HISTORY: 43 year-old patient seen for diagnostic evaluation of non-bloody discharge in both breasts and the finding(s) described on prior MRI in the right breast. Patient states no personal history of breast cancer. COMPARISON STUDIES: The present examination has been compared to prior imaging studies dated 07/20/2020 and 12/12/2023. MAMMOGRAM TECHNIQUE: The study was acquired using full field digital technology and interpreted from soft copy. Digital Breast Tomosynthesis (DBT) images were obtained and used to assist in the interpretation of this examination. MAMMOGRAM FINDINGS: The breasts are heterogeneously dense, which may obscure small masses. The right mammogram is negative in the upper outer quadrant and at the site of focal pain at 11 o'clock 3 cm from the nipple. Finding 1: There are no suspicious mammographic findings to correspond with the bloody nipple discharge in the right breast. Finding 2: There are no suspicious mammographic findings to correspond with the non-bloody nipple discharge in the left breast. ULTRASOUND TECHNIQUE: Targeted ultrasound of the indicated area was performed. Klein scale images were saved. ULTRASOUND FINDINGS: Finding 1: There is an intraductal mass measuring 0.6 x 0.2 x 0.2 cm in the right breast. Internal echotexture is hypoechoic. Color flow imaging demonstrates vascularity is present. Finding correlates to the bloody nipple discharge in the right breast. Ultrasound is negative in the right upper outer quadrant and at the site of focal pain at 11 o'clock 3 cm from the nipple. Finding 2: There are no suspicious sonographic findings to correspond with the non-bloody nipple discharge in the left breast. IMPRESSION: Finding 1: The 0.6 x 0.2 x 0.2 cm intraductal mass in the right breast is suspicious for malignancy. Ultrasound-guided biopsy is recommended. The patient scheduled a right ultrasound biopsy as she left today and signed electronic informed consent. Finding 2: There is no suspicious imaging finding to correspond with the non-bloody nipple discharge in the left breast. Return to annual screening mammogram is recommended. Annual mammogram will be due in 1 year. BI-RADS Category 4: Suspicious RISK: Based on the Tyrer-Cuzick (TC) risk assessment model, this patient has a 12.9% lifetime risk of developing breast cancer, meaning they are at average risk for developing breast cancer. However, this is only an estimate based on available history provided on the patient's questionnaire. We encourage all patients to talk with their providers about these results, further recommendations for managing breast health, and appropriate supplemental screening options if the patient has dense breast tissue. Interpreting Radiologist: Radha Kamara M.D. Electronically signed on: 05/10/2024 Customs Appraiser: JD Transcrivince Date/Time: May 10 2024 11:12A Dictated by : RADHA KAMARA MD This examination was interpreted and the report reviewed and electronically signed by: RADHA KAMARA MD on May 10 2024 12:24PM EST This document has been addended by: RADHA KAMARA MD on May 10 2024 3:13PM EST [facility] US Breast - right limitedon 05-10-2024 Addendum by Provider , [facility] [place] on 05/10/2024 3:19 PM EDT * * *Final Report* * * * * * SEE BOTTOM OF REPORT FOR ADDENDED TEXT * * * DATE OF EXAM: May 10 2024 11:12AM MCW [id number] - [facility] [place] RT / PROCEDURE REASON: multiple diagnoses * * * * Physician Interpretation * * * * RESULT: [address] DESK [address] [place] [id number] - - - - - - - - - - ADDENDED REPORT - - - - - - - - - - 05/10/2024 at 15:13:26 Addendum: Since imaging is negative in the right upper outer quadrant, right MRI biopsy is recommended. Discussed with Lissette Mcleod who will contact the patient. BI-RADS Category 4: Suspicious Interpreting Radiologist: Radha Kamara M.D. Electronically signed on: 05/10/2024 - - - - - - - - - - ORIGINAL REPORT - - - - - - - - - - #[id number] - [facility] NEHEMIAS FAUSTO KELSEY #[id number] - [facility] [place] RT #[id number] - [employer] HISTORY: 43 year-old patient seen for diagnostic evaluation of non-bloody discharge in both breasts and the finding(s) described on prior MRI in the right breast. Patient states no personal history of breast cancer. COMPARISON STUDIES: The present examination has been compared to prior imaging studies dated 07/20/2020 and 12/12/2023. MAMMOGRAM TECHNIQUE: The study was acquired using full field digital technology and interpreted from soft copy. Digital Breast Tomosynthesis (DBT) images were obtained and used to assist in the interpretation of this examination. MAMMOGRAM FINDINGS: The breasts are heterogeneously dense, which may obscure small masses. The right mammogram is negative in the upper outer quadrant and at the site of focal pain at 11 o'clock 3 cm from the nipple. Finding 1: There are no suspicious mammographic findings to correspond with the bloody nipple discharge in the right breast. Finding 2: There are no suspicious mammographic findings to correspond with the non-bloody nipple discharge in the left breast. ULTRASOUND TECHNIQUE: Targeted ultrasound of the indicated area was performed. Klein scale images were saved. ULTRASOUND FINDINGS: Finding 1: There is an intraductal mass measuring 0.6 x 0.2 x 0.2 cm in the right breast. Internal echotexture is hypoechoic. Color flow imaging demonstrates vascularity is present. Finding correlates to the bloody nipple discharge in the right breast. Ultrasound is negative in the right upper outer quadrant and at the site of focal pain at 11 o'clock 3 cm from the nipple. Finding 2: There are no suspicious sonographic findings to correspond with the non-bloody nipple discharge in the left breast. IMPRESSION: Finding 1: The 0.6 x 0.2 x 0.2 cm intraductal mass in the right breast is suspicious for malignancy. Ultrasound-guided biopsy is recommended. The patient scheduled a right ultrasound biopsy as she left today and signed electronic informed consent. Finding 2: There is no suspicious imaging finding to correspond with the non-bloody nipple discharge in the left breast. Return to annual screening mammogram is recommended. Annual mammogram will be due in 1 year. BI-RADS Category 4: Suspicious RISK: Based on the Tyrer-Cuzick (TC) risk assessment model, this patient has a 12.9% lifetime risk of developing breast cancer, meaning they are at average risk for developing breast cancer. However, this is only an estimate based on available history provided on the patient's questionnaire. We encourage all patients to talk with their providers about these results, further recommendations for managing breast health, and appropriate supplemental screening options if the patient has dense breast tissue. Interpreting Radiologist: Radha Kamara M.D. Electronically signed on: 05/10/2024 Customs Appraiser: JD Transcribe Date/Time: May 10 2024 11:11A Dictated by : RADHA KAMARA MD This examination was interpreted and the report reviewed and electronically signed by: RADHA KAMARA MD on May 10 2024 12:24PM EST This document has been addended by: RADHA KAMARA MD on May 10 2024 3:13PM EST [facility] T4 Free SerPl-mCncon 05-03-2 025 Free T4 [Mass/Vol] 1.5 ng/dL Normal 0.9-1.7 [facility] Comment on above: Order Comment: Speci men Type: BLOOD SPECIMEN Ordering Facility: [facility] Address: [address] [place], [place] [id number] Performed By: #### M ICRO #### [facility] CLIA [id number] [address] [place] [address] [place] TSH SerPl-aCncon 05-03-2024 TSH Qn 0.338 m[IU]/L Normal 0.270-4.20 0 [facility] Comment on above: Order Comment: Speci men Type: BLOOD SPECIMEN Ordering Facility: [facility] Address: [address] [place] [address] Result Comment: If t he patient is , TSH reference range varies by gestational period: First Trimester (weeks 9-12): 0.180-2.990 mIU/L Second Trimester: 0.110-3.980 mIU/L Third Trimester: 0.480-4.710 mIU/L Ti Whitfield et al. A Practical Approach for the Verifications and Determination of Site- and Trimester-Specific Reference Intervals for Thyroid Function tests in . Thyroid, 2019:29:3:412-420. Sylvester E, et al. 2017 Guidelines of the [place] Thyroid Association for the Diagnosis and Management of Thyroid Disease during and the . Thyroid, 2017:27:3:315-389. Performed By: #### M ICRO #### [facility] CLIA [id number] [address] [place] [address] [place] 04-30-2024 CNPN Telephone (RADMN) YOLANDE GOMES ([id number]) 1980 F Date Time Provider Department 04/30/24 DREA BOUCHER During your visit today, we recorded the following information about you: Allergies As of Date: 04/30/2024 Noted Allergy Reaction PENICILLINS 07/09/2006 10 - Anaphylaxis Date Reviewed: 01/07/2024 Reviewed by: Laya Wallace MA - Fully Assessed Reason for Visit: Patient Update [1234] Prescriptions as of 04/30/2024 - levothyroxine (SYNTHROID) 100 mcg tablet Take 1 tablet on 5 days of the week, skip on 2 days of the week (may be Friday and Friday) - eletriptan (RELPAX) 40 mg tablet TAKE 1 TABLET NEEDED FOR MIGRAINE HEADACHE (SEE ADMINISTRATION INSTRUCTIONS) AT THE ONSET OF MIGRAINE HEADACHE (1 IN 24 HOURS) - atogepant (QULIPTA) 60 mg tablet Take 1 tablet (60 mg) by mouth once daily. - Magnesium 200 mg tab Take by mouth. - SEMAGLUTIDE, WEIGHT LOSS, SUBCUTANEOUS Inject 70 Units subcutaneously one time a week. - spironolactone (ALDACTONE) 50 mg tablet - FLUoxetine HCl 20 mg tablet Take 20 mg by mouth once daily. - VITAMIN B COMPLEX-100 ORAL Take 1 tablet by mouth once daily. Problem List As Of Date 04/30/2024 Noted Resolved Polycystic Ovarian Disease [E28.2] 05/10/2009 Hypothyroidism, acquired [E03.9] 07/22/2023 Thyroid nodule [E04.1] 07/23/2023 Chronic fatigue [R53.82] 07/23/2023 Encounter Status:Closed by DREA BOUCHER on 04/30/[address] [facility] [place] 04-28-2024 [facility] Telephone (RADMN) YOLANDE GOMES ([id number]) 1980 F Date Time Provider Department 04/28/24 EWA ROUSE During your visit today, we recorded the following information about you: Ewa Rouse RN 04/28/2024 12:21 PM Signed Outside Biopsy Recommended Review Request Patient Name: Yolande Gomes Date films received: 04/13/2024 Name of outside facility: [facility] Images in AGFA: Yes Outside Radiologist's recommendation: Right Breast MRI Bx Date of outside study: 04/13/2024 Patient told to bring script: No IS PATIENT ON BLOOD THINNERS: no Last INR AND Date: Comments: Order is uploaded in [employer] Allergies As of Date: 04/28/2024 Noted Allergy Reaction PENICILLINS 07/09/2006 10 - Anaphylaxis Date Reviewed: 01/07/2024 Reviewed by: Laya Wallace MA - Fully Assessed Reason for Visit: Outside Recommended Biopsy Review [Other] Prescriptions as of 04/28/2024 - levothyroxine (SYNTHROID) 100 mcg tablet Take 1 tablet on 5 days of the week, skip on 2 days of the week (may be Friday and Friday) - eletriptan (RELPAX) 40 mg tablet TAKE 1 TABLET NEEDED FOR MIGRAINE HEADACHE (SEE ADMINISTRATION INSTRUCTIONS) AT THE ONSET OF MIGRAINE HEADACHE (1 IN 24 HOURS) - atogepant (QULIPTA) 60 mg tablet Take 1 tablet (60 mg) by mouth once daily. - Magnesium 200 mg tab Take by mouth. - SEMAGLUTIDE, WEIGHT LOSS, SUBCUTANEOUS Inject 70 Units subcutaneously one time a week. - spironolactone (ALDACTONE) 50 mg tablet - FLUoxetine HCl 20 mg tablet Take 20 mg by mouth once daily. - VITAMIN B COMPLEX-100 ORAL Take 1 tablet by mouth once daily. Problem List As Of Date 04/28/2024 Noted Resolved Polycystic Ovarian Disease [E28.2] 05/10/2009 Hypothyroidism, acquired [E03.9] 07/22/2023 Thyroid nodule [E04.1] 07/23/2023 Chronic fatigue [R53.82] 07/23/2023 Encounter Status:Closed by EWA ROUSE on 04/28/[address] [facility] Telephone (RADMN) YOLANDE GOMES ([id number]) 1980 F Date Time Provider Department 04/28/24 EWA ROUSE RADMN During your visit today, we recorded the following information about you: Ewa Rouse, RN 04/28/2024 12:23 PM Signed Outside Biopsy Recommended Review Request Patient Name: Yolande Gomes Date films received: 04/13/2024 Name of outside facility: [facility] Images in AGFA: Yes Outside Radiologist's recommendation: Right Breast MRI Bx Date of outside study: 04/13/2024 Patient told to bring script: No IS PATIENT ON BLOOD THINNERS: no Last INR AND Date: Comments: Order is uploaded in [employer] Jesse Ruiz MD 04/30/2024 12:42 AM Signed Recommended breast biopsy denied. Denied: MRI Guided Biopsy Next Step: Obtain outside breast imaging if possible including recent mammograms, ultrasounds, and MRIs if possible or will need to repeat imaging. Only recent reports are available but imaging needs to be submitted for overread. Next step order panel placed: No Approving Radiologist: Jesse Ruiz MD April 30, 2024 Allergies As of Date: 04/28/2024 Noted Allergy Reaction PENICILLINS 07/09/2006 10 - Anaphylaxis Date Reviewed: 01/07/2024 Reviewed by: Laya Wallace MA - Fully Assessed Reason for Visit: Outside Recommended Biopsy Review [Other] Prescriptions as of 04/30/2024 - levothyroxine (SYNTHROID) 100 mcg tablet Take 1 tablet on 5 days of the week, skip on 2 days of the week (may be Friday and Friday) - eletriptan (RELPAX) 40 mg tablet TAKE 1 TABLET NEEDED FOR MIGRAINE HEADACHE (SEE ADMINISTRATION INSTRUCTIONS) AT THE ONSET OF MIGRAINE HEADACHE (1 IN 24 HOURS) - atogepant (QULIPTA) 60 mg tablet Take 1 tablet (60 mg) by mouth once daily. - Magnesium 200 mg tab Take by mouth. - SEMAGLUTIDE, WEIGHT LOSS, SUBCUTANEOUS Inject 70 Units subcutaneously one time a week. - spironolactone (ALDACTONE) 50 mg tablet - FLUoxetine HCl 20 mg tablet Take 20 mg by mouth once daily. - VITAMIN B COMPLEX-100 ORAL Take 1 tablet by mouth once daily. Problem List As Of Date 04/28/2024 Noted Resolved Polycystic Ovarian Disease [E28.2] 05/10/2009 Hypothyroidism, acquired [E03.9] 07/22/2023 Thyroid nodule [E04.1] 07/23/2023 Chronic fatigue [R53.82] 07/23/2023 Encounter Status:Closed [facility] Telephone (REFPHY) YOLANDE GOMES ([id number]) 1980 F Date Time Provider Department 04/21/24 NO ONE (HISTORICAL) REFPHY During your visit today, we recorded the following information about you: Allergies As of Date: 04/21/2024 Noted Allergy Reaction PENICILLINS 07/09/2006 10 - Anaphylaxis Date Reviewed: 01/07/2024 Reviewed by: Laya Wallace MA - Fully Assessed Prescriptions as of 04/21/2024 - levothyroxine (SYNTHROID) 100 mcg tablet Take 1 tablet on 5 days of the week, skip on 2 days of the week (may be Friday and Friday) - eletriptan (RELPAX) 40 mg tablet TAKE 1 TABLET NEEDED FOR MIGRAINE HEADACHE (SEE ADMINISTRATION INSTRUCTIONS) AT THE ONSET OF MIGRAINE HEADACHE (1 IN 24 HOURS) - atogepant (QULIPTA) 60 mg tablet Take 1 tablet (60 mg) by mouth once daily. - Magnesium 200 mg tab Take by mouth. - SEMAGLUTIDE, WEIGHT LOSS, SUBCUTANEOUS Inject 70 Units subcutaneously one time a week. - spironolactone (ALDACTONE) 50 mg tablet - FLUoxetine HCl 20 mg tablet Take 20 mg by mouth once daily. - VITAMIN B COMPLEX-100 ORAL Take 1 tablet by mouth once daily. Problem List As Of Date 04/21/2024 Noted Resolved Polycystic Ovarian Disease [E28.2] 05/10/2009 Hypothyroidism, acquired [E03.9] 07/22/2023 Thyroid nodule [E04.1] 07/23/2023 Chronic fatigue [R53.82] 07/23/2023 Encounter Status:Closed by GUALBERTO VINCENT on 04/21/24 Normal [facility] Chest PA and Lateralon 04-19 Chest PA and Lateral [facility] [address] [place] [address] Chest PA and Lateral MR#: [id number] Acct: [id number] Name: YOLANDE GOMES Rep #: [id number] : 1980 F 43 From: Nahum Woods MD PCP: Kimberly Kumari PA-C Status: REG ER Study: Chest PA and Lateral Date of Exam: 04/19/24 Exam# [id number] Ordering Dr: Sukhjinder Lopez DO EXAM: XR Chest, 2 Views CLINICAL INDICATION: TECHNIQUE: Frontal and lateral views of the chest. COMPARISON: No relevant prior studies available. FINDINGS: LUNGS AND PLEURAL SPACES: Unremarkable. No consolidation. No pneumothorax. HEART: Unremarkable. No cardiomegaly. MEDIASTINUM: Unremarkable. Normal mediastinal contour. BONES/JOINTS: Unremarkable. No acute fracture. RAD/Chest PA and Lateral IMPRESSION: No acute cardiopulmonary process. Reading [facility] CC: AVELINO Kumari; Dr. Sukhjinder Lopez DO Customs Appraiser: Signed Normal [facility] Emergency Department Summary on 04-19-2024 Emergency Department Summary [facility] Medical Records Department [address] [place] [address] Emergency Department Summary 04/19/24 MR#: [id number] Acct: [id number] Name: YOLANDE GOMES Rep #: [id number] : 1980 43 From: Sukhjinder Lopez DO PCP: Kimberly Kumari PA-C Status:DEP ER Location: ED HPI History of Present Illness Chief Complaint: Cough Informant: patient Narrative Narrative: 43-year-old female states that on she left work with a headache. On Friday she developed some cough sore throat myalgias. She tested negative for COVID and influenza at urgent care. Later that day she developed temperature up to 100.3 which continued into Friday. She notes now gravelly voice. Continued cough with some mucus production. She notes that she has had pneumonia with wheezing in the past. No rashes. No vomiting diarrhea. [facility] Medical History Anxiety Depression PCOS (polycystic ovarian syndrome) History of miscarriage Home Medications ???Medication ???Instructions ???Recorded ???Last Taken ???Type spironolactone 25 mg tablet 50 mg PO DAILY 08/23/22 Unknown Hi story fluoxetine 40 mg capsule (Prozac) 40 mg PO DAILY #90 caps 11/26/23 Unknown Rx semaglutide (weight loss) 1 mg/0.5 1 mg subcut Q7D 11/26/23 Unknown History mL subcutaneous pen injector albuterol sulfate 90 mcg/actuation 2 puff inhalation Q4H PRN PRN Unknown Rx aerosol inhaler (Ventolin HFA) Wheezing ##1 doxycycline monohydrate 100 mg 100 mg PO BID #14 CAPSULES 5 Unknown Rx capsule levothyroxine 100 mcg tablet 100 mcg PO DAILY 04/19/24 Unknown History Allergy/AdvReac Type Severity Reaction Status Date / Time Penicillins Allergy Anaphylaxis Verified 04/19/24 11:01 Family History Grandfather Cancer lung Grandmother Cancer stomach Aunt Cancer osteo myeloma Surgical History S/P tonsillectomy S/P D C (status post dilation and curettage) Social History household members: significant other housing: house number of children: 0 current occupational status: employed 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 Smoking Status: Never smoker alcohol intake: current alcohol intake frequency: a few times a week substance use type: does not use seatbelt use: always do you feel safe at home: Yes additional social history: JOSLYN Irvin ROS ROS ED Constitutional Constitutional ED: Reports fever(s) and sweats; Denies chills or weight loss Eyes Eyes: Denies change in vision or diplopia ENT ENT ED: Reports rhinorrhea and sore throat; Denies ear pain Cardiovascular Cardiovascular: Denies chest pain, orthopnea, palpitations or racing heartbeat Respiratory/Chest Respiratory/Chest: Reports cough; Denies dyspnea or orthopnea Gastrointestinal Gastrointestinal: Denies abdominal pain, diarrhea, nausea or vomiting Genitourinary Genitourinary ED: Denies dysuria, hematuria or urinary frequency Musculoskeletal Musculoskeletal: Reports myalgias; Denies arthralgias Integumentary Denies abscess or rash Neurologic Neurologic: Reports headache(s); Denies weakness Psychiatric Psychiatric: Denies anxiety, depression, suicidal ideation or suicidal thoughts Endocrine Endocrinology: Denies polydipsia, polyphagia or polyuria Allergic/Immunologic Allergic/Immunologic ED: Denies mouth swelling, tongue swelling or urticaria EXAM Physical Exam Const Vital Signs: 04/19/24 11:01 04/19/24 11:12 04/19/24 12:40 Temperature 97.9 F 97.8 F Temperature Source Oral Pulse Rate 110 H 84 Respiratory Rate 16 16 Respiratory Effort Normal Respiratory Depth Normal Respiratory Pattern Normal Blood Pressure 127/82 H 127/66 H Blood Pressure Mean 97 86 Pulse Ox 100 99 Oxygen Delivery Method Room Air Room Air Positive well nourished and well developed General Appearance ED: well developed HEENT Reports normocephalic, head/scalp atraumatic and moist mucous membranes HEENT Narrative: There is some cobblestoning of the posterior pharynx. Eyes PERRL and EOMs intact bilaterally Neck no lymphadenopathy, supple and no JVD Resp normal respiratory effort and clear to auscultation bilaterally Resp Narrative: There is some rhonchi and expiratory wheeze noted in the right base that clears with coughing Cardio regular rate, regular rhythm and no murmurs GI normal to inspection, nondistended, normoactive bowel sounds and non-tender Palpation: soft Back/Spine no CVA tenderness and normal ROM Extremity normal to inspection General Extremety ED: Negative for edema General Extremity: Negative (more content not included)... Normal [facility] Urgent Care Visit Reporton 0 04-16-2024 Urgent Care Visit Report [facility] [address], [address] [place] [address] OFFICE VISIT Date of Service: 04/16/24 MR#: [id number] Acct: [id number] Name: YOLANDE GOMES Rep #: [id number] : 1980 Provider: HELEN Jamison Age/Sex: 43/F Location: [facility] Status: Signed Intake Vital Signs 03/08/24 13:33 04/16/24 09:10 Height 5 ft 2 in BP 124/66 H Blood Pressure Location Rt brachial Position Sitting Respiration 16 Pulse 100 Pulse Source NIBP Temp 98.6 F Temp Source Oral Pulse Oximetry (%) 100 Oxygen Delivery Method room air Intake Visit Reasons: SORE THROAT, COUGH, BODY ACHES Chief Complaint: ST, BA, ZHAO, cough, fatigue, ear pain Spiral Weaver Required: No Is patient in pain?: Yes Allergies Penicillins Allergy (Verified 04/16/24 09:11) Anaphylaxis Is last menstrual period known: No Post menopausal: No Patient : No Have you fallen in the past year?: No Nurse's Note: ST, BA, ZHAO, cough, fatigue, ear pain x 24 hours. 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 Patient denies hemoptysis, shortness of breath or difficulty breathing. No nausea, vomiting or diarrhea. No loss of taste or smell. No loss of taste or smell. No other associated symptoms or alleviating/aggravating factors. ROS Const Constitutional: No other (6 system ROS completed with pertinent findings in the HPI otherwise normal.) Exam Const General: cooperative and well developed HENCO Head: normal to inspection and atraumatic Ears: hearing grossly normal bilaterally Nose: nasal discharge clear Face and sinus: normal facial exam Mouth: oral mucosae normal Throat: abnormal tonsil bilaterally hypertrophy 1+ Resp Effort Inspection: normal respiratory effort and no audible wheezes Auscultation: Bilateral: Clear to Auscultation Cardio Palpation: normal PMI Rate: regular rate Rhythm: regular rhythm Neuro General: patient alert and CN's II-XI intact bilaterally Psych Appearance: grossly normal Mental Status: mental status grossly normal Results POC MIKAL Covid FluAB PCR POC Mikal Covid PCR Not Detected Last Edit by Barbara Garcia on 04/16/24 09:29 POC MIKAL FLU NOT DETECTED FLU A B Last Edit by Barbara Garcia on 04/16/24 09:29 Coding Level of Care Code Off vis,est,level 3 Diagnoses Acute upper respiratory infection J06.9 Contact with or suspected exposure to other viral communicable disease Z20.828 Assessment and Plan Assessment and Plan (1) Acute upper respiratory infection: Status: Acute (2) Contact with or suspected exposure to other viral communicable disease: Status: Acute Orders: Orders POC Mikal Covid FLUAB PCR Today Medications: New benzonatate 200 mg (2 x 100 mg) PO TID PRN 30 caps 0RF cough Plan Patient tested negative for COVID, influenza in the office today. Benzonatate as prescribed today. Encouraged to get plenty of rest, drink lots of clear liquids, and use Tylenol or Ibuprofen (unless contraindicated) for fever and comfort. Patient also educated on other symptomatic management techniques. To be seen in 7-10 days if no improvement; sooner if worsening of symptoms. Patient advised of potential red flags and when appropriate to report to the ED. Patient verbalized understanding and agreement with all the above. Clinical Quality Measures Falls Risk Screening/Assistive Devices Have you fallen in the past year?: No 04/16/24 0957 Date Alex Nguyen Signature: Date (if applicable) CC: Normal [facility] Breast Bilateral W/O and Won 04-13-2024 Breast Bilateral W/O and W [facility] Imaging Services [address] [place] [address] Breast Bilateral W/O and W MR#: [id number] Acct: [id number] Name: YOLANDE GOMES Rep #: [id number] : 1980 F 43 From: Narinder Schulz MD PCP: Kimberly Kumari PA-C Status: REG CLI Study: Breast Bilateral W/O and W Date of Exam: 04/13 Exam# [id number] Ordering Dr: Marina Guzman DO PROCEDURE: BREAST BILATERAL W/O AND W REASON FOR EXAM: Bloody nipple discharge. TECHNIQUE: Bilateral breast MRI using a dedicated bilateral breast coil before and following intravenous contrast. Images reviewed with subtraction without DynaCAD. No color maps were performed. CONTRAST: 14 IV Clariscan. COMPARISON: Reviewed. FINDINGS: Amount of Fibroglandular Tissue: Scattered fibroglandular tissue. Background Parenchymal Enhancement: Moderate. This may decrease the sensitivity of breast MRI. RIGHT Breast: Asymmetrically prominent clumped non-mass enhancement in the right breast extending to the base of the nipple spanning approximately 2.3 cm in greatest AP dimension. Additional areas of non-mass enhancement noted posteriorly including suspicious clumped linear non mass enhancement spanning 1.5 cm in the upper outer middle depth. LEFT Breast: No suspicious mass or non-mass enhancement. Other Findings: No suspicious axillary or internal mammary lymph nodes. Visualized portions of the thoracic and abdominal viscera are unremarkable. MRI/Breast Bilateral W/O and W IMPRESSION: Limited exam as color maps were not performed. Scattered indeterminate non-mass enhancement of the right breast; posteriorly located linear non- mass enhancement as well as anteriorly located clumped non-mass enhancement. Given clinical symptoms, MR guided core biopsy of the more anterior clumped non-mass enhancement is advised. Management of the posterior non mass enhancement will depend upon biopsy results. OVERALL BI-RADS CATEGORY: BI-RADS 4: SUSPICIOUS ABNORMALITY [facility] CC: AVELINO Kumari; Dr. Marina Guzman DO Customs Appraiser: Signed Normal [facility] Syrup Shed Supervisor Office Visit Reporton 03-08-2024 Syrup Shed Supervisor Office Visit Report [facility] [address], [address] [place] [address] OFFICE VISIT Date of Service: 03/08/24 MR#: [id number] Acct: [id number] Name: YOLANDE GOMES Rep #: [id number] : 1980 Provider: Dr. Marina Bro DO Age/Sex: 43/F Location: [facility] Status: Signed Intake Vital Signs 11/26/23 11:29 03/08/24 13:32 03/08/24 13:33 Height 5 ft 2 in 5 ft 2 in 5 ft 2 in Weight: 159 lb 8 oz BMI 29.1 BP 107/63 Intake Visit Reasons: bloody right nipple discharge Spiral Weaver Required: No Is patient in pain?: No Allergies Penicillins Allergy (Verified 03/08/24 13:31) Anaphylaxis Medications ???Medication ???Instructions ???Recorded ???Confirmed ???Type spironolactone 25 mg tablet 50 mg PO 08/23/22 03/08/24 History fluoxetine 40 mg capsule (Prozac) 40 mg PO DAILY #90 caps 11/26/23 03/08/24 Rx semaglutide (weight loss) 1 mg/0.5 1 mg subcut Q7D 11/26/23 03/08/24 History mL subcutaneous pen injector levothyroxine 50 mcg capsule 50 mcg PO QDAY 03/08/24 03/08/24 History Post menopausal: No Patient : No : No [facility] Medical History Anxiety Depression PCOS (polycystic ovarian syndrome) History of miscarriage Surgical History S/P tonsillectomy S/P D C (status post dilation and curettage) Family History Grandfather Cancer lung Grandmother Cancer stomach Aunt Cancer osteo myeloma Social History household members: significant other housing: house number of children: 0 current occupational status: employed 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 She states that her partner first noticed it a month ago but this am was the first time she noticed it. History 2 Elective abortions Hx Para 0 Spontaneous abortions 2 Hx # Term Pregnancies Ectopic pregnancies Hx # Pregnancies Multiple births # of living children ROS Skin Skin/Breast: Denies breast mass, breast pain or breast skin changes Exam Const General: cooperative, healthy appearing, comfortable and no acute distress Orientation: alert, awake and oriented x3 Neck Neck: normal visual inspection and no lymphadenopathy Neck mass: No Chest Chest palpation inspection: normal inspection of the chest Breast inspection: normal inspection of the breasts and normal inspection of the axillae Breast palpation: normal palpation of the breasts, normal palpation of the axillae, no axillary lymphadenopathy and other (bloody discharge actively expressed from the right breast. ) Other: no abnormal skin retractions, nipple discharge, dimpling, masses, or lesions Coding Level of Care Code Off vis,est,level 3 Diagnoses Bloody discharge from nipple N64.52 Assessment and Plan Assessment and Plan (1) Bloody discharge from nipple: Status: Acute Plan: Mammogram from november this year showed dense tissue only. Ordering MRI and consulting General surgery Orders: Orders MRI BREAST W/O CONT BILAT Today N64.52 - Nipple discharge 03/08/24 1356 Date Marina Gipson Amna Orantes Signature: Date (if applicable) CC: Normal [facility] 01-07-2024 CN Office Visit (UCWSTR ) YOLANDE GOMES ([id number]) 1980 F Date Time Provider Department 01/07/24 7:00 PM MATEO SÁNCHEZ [facility] During your visit today, we recorded the following information about you: Temperature Pulse Respiration Blood pressure 97.3 degrees 88/minute 16/minute 122/70 Weight 72.7 kg Mateo Sánchez PA-C 01/07/2024 7:54 PM Signed This note was created using Film Fresh[employer]. Subjective Yolande Leonard Gomes is a 43 year old female. HPI Presents with the chief complaint of sore throat, runny nose, body aches over the past day. She states she had flown on a plane from [place] 2 days ago coming home from vacation. She also may have been exposed to strep throat through some family members who had tested positive. She denies vomiting or diarrhea. She was going to go on another trip tomorrow and wanted to make sure what was going on. She states she does have some achiness when she moves her chest and back. No shortness of breath. No vomiting or diarrhea. She has not noticed a fever. Review of Systems Constitutional: Positive for fatigue. Negative for fever. HENT: Positive for congestion, ear pain, postnasal drip and sore throat. Respiratory: Negative for cough, shortness of breath and wheezing. Gastrointestinal: Negative. Musculoskeletal: Positive for myalgias. All other systems reviewed and are negative. PAST MEDICAL HISTORY Diagnosis Date Dysmenorrhea Dyspareunia Hypothyroidism also known nodule Papanicolaou smear of cervix with low grade squamous intraepithelial lesion (LGSIL) 02/24/2006 PMH - PAST MEDICAL HISTORY OF bipolar, borderline personality disorder Current Outpatient Medications Medication Sig Dispense Refill eletriptan (RELPAX) 40 mg tablet TAKE 1 TABLET NEEDED FOR MIGRAINE HEADACHE (SEE ADMINISTRATION INSTRUCTIONS) AT THE ONSET OF MIGRAINE HEADACHE (1 IN 24 HOURS) 12 tablet 19 levothyroxine (SYNTHROID) 100 mcg tablet Take 1 tablet on 5 days of the week, skip on 2 days of the week (may be Friday and Friday) 65 tablet 1 Magnesium 200 mg tab Take by mouth. SEMAGLUTIDE, WEIGHT LOSS, SUBCUTANEOUS Inject 70 Units subcutaneously one time a week. spironolactone (ALDACTONE) 50 mg tablet FLUoxetine HCl 20 mg tablet Take 20 mg by mouth once daily. atogepant (QULIPTA) 60 mg tablet Take 1 tablet (60 mg) by mouth once daily. (Patient not taking: Reported on 01/07/2024) 30 tablet 0 VITAMIN B COMPLEX-100 ORAL Take 1 tablet by mouth once daily. No current facility-administered medications for this visit. PAST SURGICAL HISTORY Procedure Laterality Date PAST SURGICAL HISTORY OF tonsils FAMILY HISTORY Problem Relation Age of Onset Cancer Maternal Grandfather unknown Heart Paternal Grandfather Stroke Paternal Grandfather Hypertension Maternal Grandmother Social History Tobacco Use Smoking status: Never Smokeless tobacco: Former Types: Chew Tobacco comments: For 3 years Substance Use Topics Alcohol use: Yes Comment: occasionally Drug use: No Objective BP 122/70 Pulse 88 Temp 36.3 ?C (97.3 ?F) Resp 16 Wt 72.7 kg (160 lb 4.4 oz) LMP 07/29/2023 (Exact Date) SpO2 99% BMI 29.31 kg/m? Physical Exam Vitals reviewed. Constitutional: Appearance: Normal appearance. HENT: Head: Normocephalic and atraumatic. Right Ear: Tympanic membrane, ear canal and external ear normal. Left Ear: Tympanic membrane, ear canal and external ear normal. Nose: Congestion present. Mouth/Throat: Lips: [place]. Mouth: Mucous membranes are moist. Pharynx: Posterior oropharyngeal erythema present. No pharyngeal swelling, oropharyngeal exudate or uvula swelling. Tonsils: 1+ on the right. 1+ on the left. Cardiovascular: Rate and Rhythm: Normal rate and regular rhythm. Heart sounds: Normal heart sounds. Pulmonary: Effort: Pulmonary effort is normal. Breath sounds: Normal breath sounds. No wheezing or rhonchi. Skin: General: Skin is warm and dry. Neurological: Mental Status: She is alert. Assessment and Plan ASSESSMENT/PLAN: 1. Sore throat - ICD9: 462, ICD10: J02.9 (primary diagnosis) - Group A strep molecular testing negative - STREP A MOLECULAR (POC) 2. Viral URI - ICD9: 465.9, ICD10: J06.9 - Discussed viral etiology and rationale for treatment. - Symptomatic treatment with prn analgesia - Supportive care with fluids and rest -Chest x-ray was clear. COVID test at home negative. Discussed if not improving follow-up with PCP. Patient agreeable. - XR CHEST 2V FRONTAL/LAT Mateo Sánchez PA-C Allergies As of Date: 01/07/2024 Noted Allergy Reaction PENICILLINS 07/09/2006 10 - Anaphylaxis Date Reviewed: 01/07/2024 Reviewed by: Laya Wallace MA - Fully Assessed Reason for Visit: Ear Pain [817] Cmt: right and sore throat x this am Primary Visit Diagnosis:Sore throat [J02.9] Other Visit Diagnosis:Viral URI [J06.9 (more content not included)... Normal [facility] STREP A MOLECULAR (POC)on Procedural Control Valid [facility] Strep A (POCT) Negative Negative [facility] XR CHEST 2V FRONTAL/LATon XR CHEST 2V FRONTAL/LAT * * *Final Report* * * DATE OF EXAM: Jan 07 2024 7:34PM WOX 5291 - XR CHEST 2V FRONTAL/LAT / PROCEDURE REASON: Viral URI * * * * Physician Interpretation * * * * EXAMINATION: CHEST RADIOGRAPH (2 VIEW FRONTAL and LATERAL) CLINICAL HISTORY: Viral URI MQ: XC2_6 EXAM DATE/TIME: 01/07/2024 7:34 PM COMPARISON: No relevant prior studies available. RESULT: Lines, tubes, and devices: None. Lungs and pleura: No consolidation. No lung mass. No pleural effusion. No pneumothorax. Cardiomediastinal silhouette: Normal cardiomediastinal silhouette. Bones and soft tissues: Unremarkable. IMPRESSION: No acute radiographic abnormality. Customs Appraiser: PSCB Transcribe Date/Time: Jan 07 2024 7:37P Dictated by : GAB STOLL MD This examination was interpreted and the report reviewed and electronically signed by: GAB STOLL MD on Jan 07 2024 7:37PM EST [id number] Normal [facility] XR Chest PA and Lateralon IMPRESSION: No acute radiographic abnormality. Customs Appraiser: PSCB Transcribe Date/Time: Jan 07 2024 7:37P Dictated by : GAB STOLL MD This examination was interpreted and the report reviewed and electronically signed by: AGB STOLL MD on Jan 07 2024 7:37PM EST DIVISION OF RADIOLOGY * * *Final Report* * * DATE OF EXAM: Jan 07 2024 7:34PM WOX 5291 - XR CHEST 2V FRONTAL/LAT / PROCEDURE REASON: Viral URI * * * * Physician Interpretation * * * * EXAMINATION: CHEST RADIOGRAPH (2 VIEW FRONTAL & LATERAL) CLINICAL HISTORY: Viral URI MQ: XC2_6 EXAM DATE/TIME: 01/07/2024 7:34 PM COMPARISON: No relevant prior studies available. RESULT: Lines, tubes, and devices: None. Lungs and pleura: No consolidation. No lung mass. No pleural effusion. No pneumothorax. Cardiomediastinal silhouette: Normal cardiomediastinal silhouette. Bones and soft tissues: Unremarkable. DIVISION OF RADIOLOGY Provider, [facility] - 01/07/2024 * * *Final Report* * * DATE OF EXAM: Jan 07 2024 7:34PM WOX 5291 - XR CHEST 2V FRONTAL/LAT / PROCEDURE REASON: Viral URI * * * * Physician Interpretation * * * * EXAMINATION: CHEST RADIOGRAPH (2 VIEW FRONTAL & LATERAL) CLINICAL HISTORY: Viral URI MQ: XC2_6 EXAM DATE/TIME: 01/07/2024 7:34 PM COMPARISON: No relevant prior studies available. RESULT: Lines, tubes, and devices: None. Lungs and pleura: No consolidation. No lung mass. No pleural effusion. No pneumothorax. Cardiomediastinal silhouette: Normal cardiomediastinal silhouette. Bones and soft tissues: Unremarkable. IMPRESSION IMPRESSION: No acute radiographic abnormality. Customs Appraiser: DIMITRI Transcribe Date/Time: Jan 07 2024 7:37P Dictated by : GAB STOLL MD This examination was interpreted and the report reviewed and electronically signed by: GAB STOLL MD on Jan 07 2024 7:37PM EST [facility] Radiology Study observation (narrative) [facility] XR Chest PA and LateralOrder ed By: [facility] Provider on 01-07-[address] [facility] [address] BRAIN WO IVCONon 12-16-19 CT BRAIN WO IVCON * * *Final Report* * * DATE OF EXAM: Dec 16 2023 8:22AM [facility] 0504 - CT BRAIN WO IVCON / PROCEDURE REASON: 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 and with status migrainosus * * * * Physician Interpretation * * * * EXAMINATION: CT BRAIN WO IVCON CLINICAL HISTORY: 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 and with status migrainosus TECHNIQUE: Serial axial images without IV contrast were obtained from the vertex to the foramen magnum. MQ: CTBWO_3 CT Radiation dose: Integrated Dose-Length Product (DLP) for this visit = 654 mGy*cm CT Dose Reduction Employed: Automated exposure control(AEC) and iterative recon COMPARISON: None. RESULT: Localizer images: Unremarkable. Post-operative change: None. Acute change: No evidence of an acute infarct or other acute parenchymal process. Hemorrhage: No evidence of acute intracranial hemorrhage. ECASS hemorrhagic transformation score: Not Applicable Mass Lesion / Mass Effect: There is no evidence of an intracranial mass or extraaxial fluid collection. No significant mass effect. Chronic change: None apparent. Parenchyma: There is no significant volume loss. The brain parenchyma is otherwise within normal limits for age. Ventricles: The ventricles are within normal limits of size and configuration for age. Paranasal sinuses and skull base: The visualized paranasal sinuses are grossly clear. The skull base and imaged soft tissues are unremarkable. IMPRESSION: No evidence of an acute intracranial process. Customs Appraiser: DIMITRI Transcribe Date/Time: Dec 16 2023 9:09A Dictated by : LUIS MOORE MD This examination was interpreted and the report reviewed and electronically signed by: LUIS MOORE MD on Dec 16 2023 9:10AM EST [id number] Normal [facility] CT Head WO contraston 2023 IMPRESSION: No evidence of an acute intracranial process. Customs Appraiser: DIMITRI Transcribe Date/Time: Dec 16 2023 9:09A Dictated by : LUIS MOORE MD This examination was interpreted and the report reviewed and electronically signed by: LUIS MOORE MD on Dec 16 2023 9:10AM EST DIVISION OF RADIOLOGY * * *Final Report* * * DATE OF EXAM: Dec 16 2023 8:22AM [facility] 0504 - CT BRAIN WO IVCON / PROCEDURE REASON: 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 and with status migrainosus * * * * Physician Interpretation * * * * EXAMINATION: CT BRAIN WO IVCON CLINICAL HISTORY: 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 and with status migrainosus TECHNIQUE: Serial axial images without IV contrast were obtained from the vertex to the foramen magnum. MQ: CTBWO_3 CT Radiation dose: Integrated Dose-Length Product (DLP) for this visit = 654 mGy*cm CT Dose Reduction Employed: Automated exposure control(AEC) and iterative recon COMPARISON: None. RESULT: Localizer images: Unremarkable. Post-operative change: None. Acute change: No evidence of an acute infarct or other acute parenchymal process. Hemorrhage: No evidence of acute intracranial hemorrhage. ECASS hemorrhagic transformation score: Not Applicable Mass Lesion / Mass Effect: There is no evidence of an intracranial mass or extraaxial fluid collection. No significant mass effect. Chronic change: None apparent. Parenchyma: There is no significant volume loss. The brain parenchyma is otherwise within normal limits for age. Ventricles: The ventricles are within normal limits of size and configuration for age. Paranasal sinuses and skull base: The visualized paranasal sinuses are grossly clear. The skull base and imaged soft tissues are unremarkable. DIVISION OF RADIOLOGY Provider, Landon Marrufo - 12/16/2023 * * *Final Report* * * DATE OF EXAM: Dec 16 2023 8:22AM [facility] 0504 - CT BRAIN WO IVCON / PROCEDURE REASON: 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 and with status migrainosus * * * * Physician Interpretation * * * * EXAMINATION: CT BRAIN WO IVCON CLINICAL HISTORY: 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 and with status migrainosus TECHNIQUE: Serial axial images without IV contrast were obtained from the vertex to the foramen magnum. MQ: CTBWO_3 CT Radiation dose: Integrated Dose-Length Product (DLP) for this visit = 654 mGy*cm CT Dose Reduction Employed: Automated exposure control(AEC) and iterative recon COMPARISON: None. RESULT: Localizer images: Unremarkable. Post-operative change: None. Acute change: No evidence of an acute infarct or other acute parenchymal process. Hemorrhage: No evidence of acute intracranial hemorrhage. ECASS hemorrhagic transformation score: Not Applicable Mass Lesion / Mass Effect: There is no evidence of an intracranial mass or extraaxial fluid collection. No significant mass effect. Chronic change: None apparent. Parenchyma: There is no significant volume loss. The brain parenchyma is otherwise within normal limits for age. Ventricles: The ventricles are within normal limits of size and configuration for age. Paranasal sinuses and skull base: The visualized paranasal sinuses are grossly clear. The skull base and imaged soft tissues are unremarkable. IMPRESSION IMPRESSION: No evidence of an acute intracranial process. Customs Appraiser: PSCLibia Transcribe Date/Time: Dec 16 2023 9:09A Dictated by : LUIS MOORE MD This examination was interpreted and the report reviewed and electronically signed by: LUIS MOORE MD on Dec 16 2023 9:10AM EST [facility] Radiology Study observation (narrative) [facility] CT Head WO contrastOrdered B y: [facility] Provider on 12-16-2023 [facility] Pelvic w/ Transvaginalon Pelvic w/ Transvaginal [facility] [address] [place], [place] [address] Pelvic w/ Transvaginal MR#: [id number] Acct: [id number] Name: YOLANDE GOMES Rep #: [id number] : 1980 F 43 From: Morteza Valle PCP: Kimberly Kumari PA-C Status: REG CLI Study: Pelvic w/ Transvaginal Date of Exam: 12/12/23 Exam# [id number] Ordering Dr: Chery Xiong [id number] STUDY: ULTRASOUND OF THE FEMALE PELVIS - COMPLETE REASON FOR EXAM: Female, 43 years old. pelvic pain, AUB LMP: November 24, 2023 TECHNIQUE: Transabdominal and Transvaginal TECHNICAL QUALITY: Adequate. COMPARISON: November 05, 2020 FINDINGS: The uterus is anteverted and is in a midline position. The uterus measures 9 x 5.6 x 4.5 cm. Normal uterine cervix. The endometrium measures 5 mm in thickness, and is hyperechoic. There is no demonstrated endometrial mass. There is no demonstrated myometrial mass. I.U.D. - The patient does not have an I.U.D. The right ovary is visualized. The right ovary measures 3.5 x 2.9 x 2.1 cm. There is no right ovarian cyst or ovarian mass. There is no visualized right adnexal mass or complex lesion. There is normal arterial and normal venous vascularity. The left ovary is visualized. The left ovary measures 3.2 x 2.3 x 1.7 cm. There is no left ovarian cyst or ovarian mass. There is no visualized left adnexal mass or complex lesion. There is normal arterial and normal venous vascularity. There is no fluid in the cul-de-sac. Polycystic ovary disease: No. US/Pelvic w/ Transvaginal IMPRESSION: Normal female pelvis. Electronically Signed: Morteza Jj MD at 15:23 EDT , CC: AVELINO Kumari; Dr. Chery Xiong MD Customs Appraiser: Signed Normal [facility] SCRN MAMM (CAD)W/CONSTANTINJazzy Waters n 12-12-2023 SCRN MAMM (CAD)W/CONSTANTIN BILAT [facility] [address] [place] [address] SCRN MAMM (CAD)W/CONSTANTIN BILAT MR#: [id number] Acct: [id number] Name: YOLANDE GOMES Rep #: [id number] : 1980 F 43 From: Lazaro selby MD PCP: Kimberly Kumari PA-C Status: REG CLI Study: SCRN MAMM (CAD)W/CONSTANTIN BILAT Date of Exam: 11/24 10/17 Exam# [id number] Ordering Dr: Chery Xiong [id number] MAMMOGRAPHY - BILATERAL SCREENING REASON FOR EXAM: Female, 43 years old. Routine annual screening examination. PERTINENT HISTORY: Non-contributory. TECHNIQUE: Digital bilateral breast constantin (3D mammographic acquisition) in the CC and MLO projections. 2-D mediolateral oblique (MLO) and craniocaudad (CC) views of both breasts were obtained. CAD: Full Field Digital Mammography with Computer Added Detection was performed. COMPARISON: Comparison is made with prior study dated July 20, 2020. FINDINGS: Breast Composition: There are scattered areas of fibroglandular density. There are no dominant masses or suspicious calcifications. Stable bilateral fat containing axillary lymph nodes. No other significant abnormalities are identified. There has been no significant change since the prior study. BI/SCRN MAMM (CAD)W/CONSTANTIN BILAT IMPRESSION: Stable bilateral screening mammogram. Yearly follow-up mammogram recommended. (A) ASSESSMENT CATEGORY: BIRADS Category 2: Benign. A letter regarding these results will be sent to the patient by the facility within 30 days. Approximately 10% of breast cancers are not detected by mammography. A normal mammogram should not delay biopsy of a clinically suspicious abnormality. [id number] Electronically Signed: Lazaro Romero MD at 10:51 EDT , CC: AVELINO Kumari; Dr. Chery Xiong MD Customs Appraiser: Signed Normal [facility] 17-Hydroxyprogesteroneon 17ALPHA [place]-PROG 45 ng/dL Normal . [facility] Comment on above: Order Comment: Test( s) [id number] Progesterone LCMSwas developed and its performance characteristicsdetermined by [employer]. It has not been cleared or approvedby the Food and Drug Administration.N Result Comment: Adul t Female Follicular 15 - 70 Luteal 35 - 290 Performed at: [facility] [employer] [id number] Computer Networking Instructor Adjunct: Angel Spence MD, Phone: [phone] Performed By: #### L 3300.1500, L3300.1750, L3400.4800, L3100.9000, L3100.5125, L3100.5310 ####[facility] [address] [place], [address] DHEA Sulfateon 12-03-2023 DHEA SULFATE 215.0 ug/dL Normal 41.2-243.7 [facility] Comment on above: Order Comment: NN Performed By: #### L 3300.1500, L3300.1750, L3400.4800, L3100.9000, L3100.5125, L3100.5310 ####[facility] [address] [place], [place], [id number] Testosterone Freeon 12-03-19 24 TESTOSTER FREE 1.4 pg/mL Normal 0.0-4.2 [facility] Comment on above: Order Comment: NN Result Comment: Perf ormed at: [facility] [id number] Computer Networking Instructor Adjunct: Pradeep Lemus PhD, Phone: [phone] Performed at: [address] [id number] Computer Networking Instructor Adjunct: Angel Spence MD, Phone: [phone] Performed By: #### L 3300.1500, L3300.1750, L3400.4800, L3100.9000, L3100.5125, L3100.5310 ####[facility] [address] [place], [address] Testosterone, Total / Freeon 12-03-2023 TESTOSTER,FREE 0.32 ng/dL Normal 0.10-0.85 [facility] Comment on above: Order Comment: N N Performed By: #### L 3300.1500, L3300.1750, L3400.4800, L3100.9000, L3100.5125, L3100.5310 #### [facility] [address] [place], [address] TESTOSTERONE, T 16 ng/dL Normal 4-50 [facility] Comment on above: Order Comment: N N Performed By: #### L 3300.1500, L3300.1750, L3400.4800, L3100.9000, L3100.5125, L3100.5310 #### [facility] [address] [place], [address] TESTOSTERONE,%F 2.02 Normal 0.50-2.80 [facility] Comment on above: Order Comment: N N Performed By: #### L 3300.1500, L3300.1750, L3400.4800, L3100.9000, L3100.5125, L3100.5310 #### [facility] [address] [place], [address] Estradiolon 11-26-2023 ESTRADIOL 161.5 pg/mL Normal [facility] Comment on above: Result Comment: NORM AL REFERENCE RANGES FEMALE FOLLICULAR 21.4 - 164.8 pg/mL MID-CYCLE PEAK 49.9 - 367.2 pg/mL LUTEAL 40.2 - 259.0 pg/mL POST-MENOPAUSAL ON MHT <11.0 - 462.1 pg/mL NOT ON MHT <11.0 - 58.3 pg/mL MALE <11.0 - 52.5 pg/mL NOTE: [facility] HAS CONFIRMED THE DRUG FULVETRANT (FASLODEX) MAY CAUSE FALSELY ELEVATED ESTRADIOL RESULTS WHEN USING THIS TEST METHOD. IF PATIENT IS TAKING FULVESTRANT AN ALTERNATIVE METHOD SHOULD BE USED TO DETERMINE ESTRADIOL CONCENTRATION. Performed By: #### L 3300.1500, L3300.1750, L3400.4800, L3100.9000, L3100.5125, L3100.5310 #### [facility] [address] [place], [place], [id number] Follicle Stimulating Hormone on 11-26-2023 FSH 4.4 mIU/mL Normal [facility] Comment on above: Result Comment: NORMAL REFERENCE RANGES FEMALE FOLLICULAR 2.3 - 12.6 mIU/mL MID-CYCLE PEAK 5.2 - 17.5 mIU/mL LUTEAL 1.7 - 12.9 mIU/mL POST-MENOPAUSAL ON MHT 5.9 - 72.8 mIU/mL NOT ON MHT 12.7 - 132.2 mlU/mL MALE 0.7 - 10.8 mIU/mL Performed By: #### L 3300.1500, L3300.1750, L3400.4800, L3100.9000, L3100.5125, L3100.5310 #### [facility] [address] [place], [place], [id number] Syrup Shed Supervisor Office Visit Reporton 11-26-2023 Syrup Shed Supervisor Office Visit Report [facility] [address], [address] [place] [address] OFFICE VISIT Date of Service: 11/26/23 MR#: [id number] Acct: [id number] Name: YOLANDE GOMES Rep #: [id number] : 1980 Provider: Dr. Chery penaloza MD Age/Sex: 43/F Location: [facility] Status: Signed Intake Vital Signs 02/28/23 16:16 11/26/23 11:23 11/26/23 11:29 Height 5 ft 2 in 5 ft 2 in 5 ft 2 in Weight: 168 lb 158 lb BMI 30.7 28.9 BP 112/70 102/70 Blood Pressure Location Lt brachial Position Sitting Intake Visit Reasons: AUB/pelvic pain per SM Spiral Weaver Required: No Is patient in pain?: Yes (pelvic pain especially with bending ) Pain scale (1-10): 3 Allergies Penicillins Allergy (Verified 11/26/23 11:24) Anaphylaxis Medications ???Medication ???Instructions ???Recorded ???Confirmed ???Type thyroid (pork) 30 mg tablet (BUSINESS COMPUTERS TEACHER ea PO 03/11/22 11/26/23 History Thyroid) spironolactone 25 mg tablet 50 mg PO 08/23/22 11/26/23 History fluoxetine 40 mg capsule (Prozac) 40 mg PO DAILY #90 caps 11/26/23 11/26/23 Rx semaglutide (weight loss) 1 mg/0.5 1 mg subcut Q7D 11/26/23 11/26/23 History mL subcutaneous pen injector Is last menstrual period known: Yes Last Menstrual Period: 12/21/22 Post menopausal: No Patient : No : No PFSH Medical History Anxiety Depression History of miscarriage PCOS (polycystic ovarian syndrome) Surgical History S/P D C (status post dilation and curettage) S/P tonsillectomy Family History Grandfather Cancer lung Grandmother Cancer stomach Aunt Cancer osteo myeloma Social History household members: significant other housing: house number of children: 0 current occupational status: employed 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 she has a history of PCOS. she has a history of abnormal hair growth. she used to take an OCP but had to stop due to migraines. she isn't having hot flashes or night sweats. no loss of vision. she is having daily headaches but she has struggled with these for a while, cristal kumari, she hasn't had any imaging. she has been on compounded semaglutide and lost almost twenty pounds, has not been following any particular nutritional program. Female Reproductive History Last Menstrual Period: 12/21/22 Cycle Length: 21-35 Bleeding Duration: 5 Menopausal Symptoms: No hot flashes, No night sweats, Yes mood changes, Yes difficulty concentrating and Yes sleep problems History 2 Elective abortions Hx Para 0 Spontaneous abortions 2 Hx # Term Pregnancies Ectopic pregnancies Hx # Pregnancies Multiple births # of living children ROS Const Constitutional: Denies night sweats GI GI: Reports as per HPI; Denies abdominal pain, constipation, nausea or vomiting : Denies hot flashes Psych Psych: Reports difficulty concentrating Exam Const General: cooperative, healthy appearing, comfortable, no acute distress and well developed Orientation: alert HENCO Head: normal to inspection and normocephalic Ears: hearing grossly normal bilaterally and external ears normal Nose: external nose normal and nares normal Face and sinus: normal facial exam Neck Neck: normal visual inspection, no lymphadenopathy and trachea midline Thyroid: thyroid normal Resp Effort Inspection: normal respiratory effort GI Palpation: soft and nontender Musc Other: gross motor intact no deficits, full bilateral strength Skin General: no rashes or lesions noted Neuro Motor: muscle tone normal throughout Coding Level of Care Code Off vis,est,level 4 Diagnoses Abnormal uterine bleeding N93.9 Acute pelvic pain, female R10.2 Assessment and Plan Assessment and Plan (1) Abnormal uterine bleeding: Status: Acute Comment: US ordered, labs. cbc tsh normal at pcp in september (2) Acute pelvic pain, female: Status: Acute Comment: US ordered Medications: New fluoxetine (Prozac) 40 mg PO DAILY 90 caps 12RF Plan Problem list updated and treatment plans were reviewed with the patient and relevant educational handouts g (more content not included)... [facility]NEAD[facility] ELISEOYOLANDE D ([id number]) 1980 F Date Time Provider Department 10/13/23 1:30 PM ELLY CUELLAR NEADFV During your visit today, we recorded the following information about you: Temperature Pulse Blood pressure Weight 98 degrees 83/minute 120/87 70.3 kg Height 1.575 m Elly Cuellar MD 10/13/2023 1:26 PM Signed PROGRESS NOTE-HEADACHE MEDICINE SERVICE DATE: October 13, 2023 Participants: Patient, mother and Provider Subjective HPI: Yolande Gomes is here for nerve block, last seen on 08/08/2023. See pain description from that note. Pain unchanged. Outpatient Medications as of 10/13/2023 Medication Sig levothyroxine (SYNTHROID) 100 mcg tablet Take 1 tablet on 5 days of the week, skip on 2 days of the week (may be Friday and Friday) Magnesium 200 mg tab Take by mouth. SEMAGLUTIDE, WEIGHT LOSS, SUBCUTANEOUS Inject 70 Units subcutaneously one time a week. eletriptan (RELPAX) 20 mg tablet Take 1 tablet (20 mg) by mouth as needed for migraine headache (see administration instructions) (2 max in 24 hours). at the onset of migraine headache. spironolactone (ALDACTONE) 50 mg tablet FLUoxetine HCl 20 mg tablet Take 20 mg by mouth once daily. VITAMIN B COMPLEX-100 ORAL Take 1 tablet by mouth once daily. Facility-Administered Medications as of 10/13/2023 Medication Dose Route Frequency [COMPLETED] triamcinolone acetonide 40 mg injection (KeNALog 40) 40 mg INTRALESIONAL ONCE [COMPLETED] bupivacaine (PF) 0.25 % (2.5 mg/mL) 12 mg injection (SENSORCAINE MPF) 12 mg peripheral nerve block ONCE PAST MEDICAL HISTORY No date: Dysmenorrhea No date: Dyspareunia No date: Hypothyroidism Comment: also known nodule 02/24/2006: Papanicolaou smear of cervix with low grade squamous intraepithelial lesion (LGSIL) No date: PMH - PAST MEDICAL HISTORY OF Comment: bipolar, borderline personality disorder ALLERGIES Allergen Reactions Penicillins Anaphylaxis PHYSICAL EXAM: BP 120/87 (BP Site: Left Arm, BP Position: Sitting, BP Cuff Size: Regular Adult) Pulse 83 Temp 36.7 ?C (98 ?F) Ht 157.5 cm (5' 2) Wt 70.3 kg (155 lb) LMP 07/29/2023 (Exact Date) SpO2 100% BMI 28.35 kg/m? Neck is supple, full range of motion, no pain to extension or flexion or qvor-xz-pzow movement. Skin over the neck is intact. Palpation of sub-occipital area bilaterally triggers pain. ASSESSMENT: -Bilateral occipital neuralgia RECOMMENDATIONS: -Bilateral occipital nerve block today -Follow up as needed. Elly Cuellar MD [facility] [place] Elly Cuellar MD 10/13/2023 1:26 PM Signed Occipital Nerve Block procedure note: Responsible practitioner performing the procedure(s)/treatment(s): Elly Cuellar Practitioner obtaining the consent: Elly Cuellar Procedure(s)/treatment(s): Occipital nerve block Consent Source: Patient Consent DEPARTMENT of NEUROLOGY UNIVERSAL PROTOCOL / SAFETY CHECKLIST Procedure to be Performed: Occipital nerve block Sign In: A Moment of CARE was completed. Personnel directly involved with the procedure wore the appropriate PPE (Personal Protective Equipment). Patient/Surrogate Stated/Verified: PATIENT VERIFIED(optional for EMERGENT procedures): Patient name, Date of , Relevant allergies and The intended procedure Time Out Communication: Intended patient and procedure match the source documents. Consent documented and matches the intended procedure. No relevant labs, photos, and/or imaging studies were applicable for review. No correct side/site applicable for marking and visibility. Medications required for procedure verified. No fire risk assessment and interventions applicable. No implant(s) inserted. Sign Out: SIGN OUT (optional for EMERGENT procedures): No specimen collected. No instruments, equipment or retained foreign bodies applicable. Post-procedure follow-up management communicated and Plan of Care Visit completed when applicable. Bilateral Occipital Nerve Block: Dx: Occipital neuralgia Consent: In [facility] Informational guide about Occipital nerve block given - no allergies to steroid or anesthetic - no surgeries or hx of trauma in occipital area - no recent steroid injections for other indications - control Procedure: The patient was placed in a seated position. The site of pain and procedure were confirmed with the patient prior to starting the procedure. The patient's nuchal ridge of the occipital bone was identified and prepped with well with chlorhexidine x 3. A 31 Gauge 1/2 inch needle was advanced through the skin and subcutaneous tissues lateral to the occipital protuberance in the area of the Greater Occipital Nerve bilaterally. Aspiration for blood and CSF was negative. FOR DEBRA: The needle was again repositioned 2 cm laterally. This area was injected with (more content not included)... Normal [facility] CNOVon 09-16-2023 CNOV Office Visit (NEADFV ) YOLANDE GOMES ([id number]) 1980 F Date Time Provider Department 09/16/23 4:00 PM ELLY CUELLAR NEDAVIDSONFV During your visit today, we recorded the following information about you: Temperature Pulse Blood pressure Weight 97.6 degrees 90/minute 132/76 70.7 kg Height 1.575 m Elly Cuellar MD 09/17/2023 2:14 PM Signed Patient came for a nerve block but it was not approved by his insurance so we will cancel this appointment. Elly Cuellar MD [facility] [place] Referring Provider: ELLY CUELLAR [[id number]] Allergies As of Date: 09/16/2023 Noted Allergy Reaction PENICILLINS 07/09/2006 10 - Anaphylaxis Date Reviewed: 09/16/2023 Reviewed by: Alanna Chavez MA - Fully Assessed Reason for Visit: Nerve Block [3911] Primary Visit Diagnosis:APPOINTMENT CANCELLED Prescriptions as of 09/17/2023 - levothyroxine (SYNTHROID) 100 mcg tablet Take 1 tablet on 5 days of the week, skip on 2 days of the week (may be Friday and Friday) - Norethindrone, Contraceptive, 0.35 mg tablet Take by mouth. - Magnesium 200 mg tab Take by mouth. - SEMAGLUTIDE, WEIGHT LOSS, SUBCUTANEOUS Inject 70 Units subcutaneously one time a week. - eletriptan (RELPAX) 20 mg tablet Take 1 tablet (20 mg) by mouth as needed for migraine headache (see administration instructions) (2 max in 24 hours). at the onset of migraine headache. - spironolactone (ALDACTONE) 50 mg tablet - FLUoxetine HCl 20 mg tablet Take 20 mg by mouth once daily. - VITAMIN B COMPLEX-100 ORAL Take 1 tablet by mouth once daily. Problem List As Of Date 09/16/2023 Noted Resolved Polycystic Ovarian Disease [E28.2] 05/10/2009 Hypothyroidism, acquired [E03.9] 07/22/2023 Thyroid nodule [E04.1] 07/23/2023 Chronic fatigue [R53.82] 07/23/2023 Medications Discontinued During This Encounter Prescriptions - cholecalciferol (VITAMIN D) 1,000 unit tab (Discontinued) Reported on 08/18/2023 Encounter Status:Closed by ELLY CUELLAR on 09/17/23 [facility] [place] 08-27-2023 [facility] Telephone (NEUR) YOLANDE GOMES ([id number]) 1980 F Date Time Provider Department 08/27/23 CRISSY DON During your visit today, we recorded the following information about you: Emma Carl 08/27/2023 3:32 PM Signed Due to an unplanned change in Dr. Don's schedule, Patient's appt on 08/29/2023 has been cancelled. Called Patient-no answer, unable to leave voicemail. Patient notified of cancellation via [employer]. Emma Weinstein 08/29/2023 10:22 AM Signed [employer] message last read by Yolande Gomes at 5:26 AM on 08/28/2023. Emma Carl Allergies As of Date: 08/27/2023 Noted Allergy Reaction PENICILLINS 07/09/2006 10 - Anaphylaxis Date Reviewed: 08/18/2023 Reviewed by: Marina Mcfadden MA - Fully Assessed Reason for Visit: Appointment [186] Cmt: Appointment Cancelled: 08/29/2023 Prescriptions as of 08/29/2023 - Norethindrone, Contraceptive, 0.35 mg tablet Take by mouth. - Magnesium 200 mg tab Take by mouth. - SEMAGLUTIDE, WEIGHT LOSS, SUBCUTANEOUS Inject 70 Units subcutaneously one time a week. 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 Also takes additional 30 mg equaling (60 mg) Fri - eletriptan (RELPAX) 20 mg tablet Take 1 tablet (20 mg) by mouth as needed for migraine headache (see administration instructions) (2 max in 24 hours). at the onset of migraine headache. - spironolactone (ALDACTONE) 50 mg tablet - FLUoxetine HCl 20 mg tablet Take 20 mg by mouth once daily. - VITAMIN B COMPLEX-100 ORAL Take 1 tablet by mouth once daily. - cholecalciferol (VITAMIN D) 1,000 unit tab Take 1,000 Units by mouth once daily. Problem List As Of Date 08/27/2023 Noted Resolved Polycystic Ovarian Disease [E28.2] 05/10/2009 Hypothyroidism, acquired [E03.9] 07/22/2023 Thyroid nodule [E04.1] 07/23/2023 Chronic fatigue [R53.82] 07/23/2023 Encounter Status:Closed by EMMA CARL on 08/29/[address] [facility] CNOVon 08-18-2023 CNOV Office Visit (ENWSTR ) YOLANDE GOMES ([id number]) 1980 F Date Time Provider Department 08/18/23 8:40 AM GLORY ARMSTRONG During your visit today, we recorded the following information about you: Temperature Pulse Blood pressure Weight 98.6 degrees 101/minute 112/76 71.8 kg Height Last Period 1.6 m 07/29/23 Glory Armstrong MD 08/18/2023 11:59 PM Signed [facility] Initial Clinic Visit Note History of Present Illness: Yolande Gomes is a 42 year old female here to establish care for hypothyroidism. How hypothyroidism was discovered: 2 years ago- she had significant weight gain (difficulty losing weight despite diet and exercise, but has stabilized Current treatment: BUSINESS COMPUTERS TEACHER thyroid 30 mg daily, 60 mg on MWF Prior treatment: BUSINESS COMPUTERS TEACHER thyroid 30 mg daily, last dose change in Nov 2022 General symptoms: Fatigue: lethargic. 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 Magnesium 200 mg tab Take by mouth. SEMAGLUTIDE, WEIGHT LOSS, SUBCUTANEOUS Inject 70 Units subcutaneously one time a week. 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 Also takes additional 30 mg equaling (60 mg) Fri eletriptan (RELPAX) 20 mg tablet Take 1 tablet (20 mg) by mouth as needed for migraine headache (see administration instructions) (2 max in 24 hours). at the onset of migraine headache. spironolactone (ALDACTONE) 50 mg tablet FLUoxetine HCl 20 mg tablet Take 20 mg by mouth once daily. VITAMIN B COMPLEX-100 ORAL Take 1 tablet by mouth once daily. cholecalciferol (VITAMIN D) 1,000 unit tab Take 1,000 Units by mouth once daily. (Patient not taking: Reported on 08/18/2023) No current facility-administered medications on file prior to visit. PAST MEDICAL HISTORY: PAST MEDICAL HISTORY Diagnosis Date Dysmenorrhea Dyspareunia Hypothyroidism also known nodule Papanicolaou smear of cervix with low grade squamous intraepithelial lesion (LGSIL) 02/24/2006 PMH - PAST MEDICAL HISTORY OF bipolar, borderline personality disorder PAST SURGICAL HISTORY: PAST SURGICAL HISTORY Procedure Laterality Date PAST SURGICAL HISTORY OF tonsils FAMILY HISTORY: FAMILY HISTORY Problem Relation Age of Onset Cancer Maternal Grandfather unknown Heart Paternal Grandfather Stroke Paternal Grandfather Hypertension Maternal Grandmother SOCIAL HISTORY: Social History Tobacco Use Smoking status: Never Smokeless tobacco: Former Types: Chew Tobacco comments: For 3 years Substance Use Topics Alcohol use: Yes Comment: occasionally Drug use: No PHYSICAL EXAM: BP 112/76 Pulse 101 Temp 37 ?C (98.6 ?F) (Temporal Artery) Ht 160 cm (5' 3) Wt 71.8 kg (158 lb 6.4 oz) LMP 07/29/2023 (Exact Date) SpO2 99% BMI 28.06 kg/m? Last 3 Encounter Wt Readings: Date: Wt: 08/18/2023 71.8 kg (158 lb 6.4 oz) 08/01/2023 71.1 kg (156 lb 12 oz) 07/22/2023 71.2 kg (157 lb) General: Alert and oriented x3, no acute distress Eyes: Anicteric sclera. Pupils are equally round. Extraocular movements are intact. Neck supple, no cervical lymphadenopathy Thyroid: normal size, normal texture, no palpable nodules Lungs: Breathing unlabored, clear to auscultation. No wheezing, rhonchi, rales Heart regular rate and rhythm, no murmur Musculoskeletal: Muscular strength intact, No joint swelling, deformity, or tenderness Neuro: Gait normal. Sensation grossly intact. No focal findings Abdomen:Normal abdominal sounds, non tender to palpation Extremities: without edema, no deformities Skin: no rashes/ erythema LABS: Latest Ref Rng 10/22/2019 04/10/2023 06/20/2023 TSH 0.270 - 4.200 mIU/L 2.460 0.818 Free T3 2.3 - 4.1 pg/mL 3.2 Thyroglobulin Ab, Serum <4.0 IU/mL <0.9 ASSESSMENT/PLAN: Acquired hypothyroidism: Discussed side effects of combination therapy and she would like to switch BUSINESS COMPUTERS TEACHER thyroid to levothyroxine Labs in May 2023 within normal and discussed her symptoms less likely due to (more content not included)... Normal [facility] No Panel Informationon 08-17 Interpretation and review of laboratory results Normal [facility] T4 FREE/FREE THYROXINEon Free T4 [Mass/Vol] 0.9 ng/dL 0.9 - 1.7 ng/dL [facility] T4 Free SerPl-mCncon 024 Free T4 [Mass/Vol] 0.9 ng/dL Normal 0.9-1.7 [facility] Comment on above: Order Comment: Specmarily castellanos Type: BLOOD SPECIMENOrdering Facility: [facility] [place] Address: [address] [place] [address] Performed By: #### 3 024-7, 3016-3 ####[facility] LABCLIA [id number] [address] STATES OF [facility] THYROID PEROXIDASE ANTIBODYo n 08-18-2023 Interpretation and review of laboratory results Normal [facility] TPO Ab Qn NINF [facility] Comment on above: Thyroid Peroxidase A ntibody test is used as an aid in diagnosis of autoimmune thyroid disease. Clinical correlation is required. [facility] TPO Ab Qn [IU]/mL Normal <5.6 [facility] Comment on above: Order Comment: Lacey castellanos Type: BLOOD SPECIMEN Ordering Facility: [facility] [place] Address: [address] [place] [address] Result Comment: Thyr oid Peroxidase Antibody test is used as an aid in diagnosis of autoimmune thyroid disease. Clinical correlation is required. Performed By: #### M ICRO #### [facility] CLIA [id number] [facility] [place] [address] [place] THYROID STIMULATING HORMONEo n 08-18-2023 TSH Qn 1.720 m[IU]/L [facility] Comment on above: If the patient is pr egnant, TSH reference range varies by gestational period: First Trimester (weeks 9-12): 0.180-2.990 mIU/L Second Trimester: 0.110-3.980 mIU/L Third Trimester: 0.480-4.710 mIU/L Ti Whitfield et al. A Practical Approach for the Verifications and Determination of Site- and Trimester-Specific Reference Intervals for Thyroid Function tests in . Thyroid, 2019:29:3:412-420. Sylvester Farias et al. 2017 Guidelines of the [place] Thyroid Association for the Diagnosis and Management of Thyroid Disease during and the . Thyroid, 2017:27:3:315-389. TSH SerPl-aCncon 08-18-2023 TSH Qn 1.720 m[IU]/L Normal 0.270-4.20 0 [facility] Comment on above: Order Comment: Speci men Type: BLOOD SPECIMENOrdering Facility: [facility] [place] Address: [address] [place] [address] Result Comment: If t he patient is , TSH reference range varies by gestational period: First Trimester (weeks 9-12): 0.180-2.990 mIU/L Second Trimester: 0.110-3.980 mIU/L Third Trimester: 0.480-4.710 mIU/L Ti Whitfield et al. A Practical Approach for the Verifications and Determination of Site- and Trimester-Specific Reference Intervals for Thyroid Function tests in . Thyroid, 2019:29:3:412-420. Sylvester Farias et al. 2017 Guidelines of the [place] Thyroid Association for the Diagnosis and Management of Thyroid Disease during and the . Thyroid, 2017:27:3:315-389. Performed By: #### 3 024-7, 3016-3 ####[facility] LABCLIA [id number] [place] [address] [place] CNPBasilia 08-05-2023 CNPN Telephone (AGSTOW) MARIELYYOLANDE PARSONS ([id number]) 1980 F Date Time Provider Department 08/05/23 ISABELA OLIVERA During your visit today, we recorded the following information about you: Arleen Galarza 08/05/2023 10:42 AM Signed Referral submitted to [facility] Contact Center ([phone]). They will contact the patient to schedule. Confirmation number: [id number] Arleen Galarza August 05, 2023 10:42 AM Allergies As of Date: 08/05/2023 Noted Allergy Reaction PENICILLINS 07/09/2006 10 - Anaphylaxis Date Reviewed: 08/01/2023 Reviewed by: Makayla Jacobs PA-C - Fully Assessed Reason for Visit: Initial Consult [665] Cmt: Dermatology referral Prescriptions as of 08/05/2023 - SEMAGLUTIDE, WEIGHT LOSS, SUBCUTANEOUS Inject 70 Units subcutaneously one time a week. 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 Also takes additional 30 mg equaling (60 mg) Fri - topiramate (TOPAMAX) 50 mg tablet Take 1 tablet by mouth daily at bedtime. - eletriptan (RELPAX) 20 mg tablet Take 1 tablet (20 mg) by mouth as needed for migraine headache (see administration instructions) (2 max in 24 hours). at the onset of migraine headache. - spironolactone (ALDACTONE) 50 mg tablet - Drospirenone-Ethinyl Estradiol (SUNDAR, 28,) 3-0.02 mg per tablet every 24 hours. - FLUoxetine HCl 20 mg tablet Take 20 mg by mouth once daily. - VITAMIN B COMPLEX-100 ORAL Take 1 tablet by mouth once daily. - cholecalciferol (VITAMIN D) 1,000 unit tab Take 1,000 Units by mouth once daily. Problem List As Of Date 08/05/2023 Noted Resolved Polycystic Ovarian Disease [E28.2] 05/10/2009 Hypothyroidism, acquired [E03.9] 07/22/2023 Thyroid nodule [E04.1] 07/23/2023 Chronic fatigue [R53.82] 07/23/2023 Encounter Status:Closed by ARLEEN GALARZA on 08/05/23 [facility] 08-04-2023 CNPN Telephone (NEURMM) YOLANDE GOMES ([id number]) 1980 F Date Time Provider Department 08/04/23 CRISSY DON NEURMM During your visit today, we recorded the following information about you: Emma Carl 08/04/2023 4:34 PM Signed Due to an unexpected change in Dr. Don's schedule, Patient's appt on 08/08/2023 has been cancelled/rescheduled to 08/29/2023. Patient does have the following question(s) for Clinical staff in the meantime: Per office visit with Makayla Jacobs PA-C on 08/01/2023: ...discussed that many of the symptoms she [the patient] is experiencing are likely secondary from the Topamax. Discussed stopping this medication and patient agrees. Patient without any history of seizures or epilepsy. Encouraged her to continue with magnesium, also educated her on additional supplements that may beneficial as preventative treatment as well. Will continue with Relpax as an abortive therapy. Patient already has appointment with Dr. Don scheduled for next week encouraged her to follow-up. Will reach out to Dr. Don to see if any additional testing or workup is needed. Patient asking if there is any testing (labs, imaging, etc.) that would be beneficial to complete prior to her next appointment with Dr. Don? Please advise and call Patient at [phone] (work phone) with recommendations. Ioana Schuler, PERICO 08/06/2023 12:39 PM Signed Call to patient. No answer. Mailbox full, unable to leave voicemail. No need for any type of additional testing prior to follow up appointment with Dr. Don. If any additional testing is necessary, Dr. Don will order at appointment. Ioana Myles RN 08/07/2023 9:02 AM Signed Call to patient. No answer. Left voicemail to return call. Ioana Myles RN 08/07/2023 11:38 AM Signed Received voicemail 08-07-23 at 10:20 AM. Vicki my name is Yolande Gomes. My date of is [birth year]. My phone number is [phone]. I am returning Ioana's phone call. A patient of Dr. Don. Thank you. Call back to patient. Advised that there is no testing that would be needed prior to appointment. She states she needed to get in with someone CATIE, so she actually has an appointment with Dr. Cuellar tomorrow for migraine. Allergies As of Date: 08/04/2023 Noted Allergy Reaction PENICILLINS 07/09/2006 10 - Anaphylaxis Date Reviewed: 08/01/2023 Reviewed by: Makayla Jacobs PA-C - Fully Assessed Reason for Visit: Patient Question [4027] Prescriptions as of 08/07/2023 - SEMAGLUTIDE, WEIGHT LOSS, SUBCUTANEOUS Inject 70 Units subcutaneously one time a week. 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 Also takes additional 30 mg equaling (60 mg) Fri - topiramate (TOPAMAX) 50 mg tablet Take 1 tablet by mouth daily at bedtime. - eletriptan (RELPAX) 20 mg tablet Take 1 tablet (20 mg) by mouth as needed for migraine headache (see administration instructions) (2 max in 24 hours). at the onset of migraine headache. - spironolactone (ALDACTONE) 50 mg tablet - Drospirenone-Ethinyl Estradiol (SUNDAR, 28,) 3-0.02 mg per tablet every 24 hours. - FLUoxetine HCl 20 mg tablet Take 20 mg by mouth once daily. - VITAMIN B COMPLEX-100 ORAL Take 1 tablet by mouth once daily. - cholecalciferol (VITAMIN D) 1,000 unit tab Take 1,000 Units by mouth once daily. Problem List As Of Date 08/04/2023 Noted Resolved Polycystic Ovarian Disease [E28.2] 05/10/2009 Hypothyroidism, acquired [E03.9] 07/22/2023 Thyroid nodule [E04.1] 07/23/2023 Chronic fatigue [R53.82] 07/23/2023 Encounter Status:Closed by IOANA MYLES on 08/07/[address] [facility] CNOVon 08-01-2023 CNOV Office Visit ([facility] ) YOLANDE GOMES ([id number]) 1980 F Date Time Provider Department 08/01/23 3:00 PM MAKAYLA JACOBS [facility] During your visit today, we recorded the following information about you: Pulse Respiration Blood pressure Weight 85/minute 16/minute 115/81 71.1 kg Makayla Jacobs PA-C 08/01/2023 3:44 PM Signed [facility] Date: August 01, 2023 Patient Name: Yolande Gomes Referring physician: No referring provider defined for this encounter. Primary physician: Isabela Olivera [address] [place] [address] Reason for Evaluation: head pain Subjective HPI Yolande Gomes is a 42 year old female with history of hypothyroidism who presents for evaluation of paresthesias and headache. Dr. Isabela Olivera APRN.CASE AIDE is the PCP. Chart review: Last saw Dr. Don on 05/15/23 for migraines, chronic. Supplements and relpax, started TPM 50mg with FU in 2 months. MyChart message on 07/27/23 I just want to inform Isabela of a new indentation on my scalp as of this morning 07/26. I had sensitivity in that area the later part of the week and some pain and now it is indented. It is located on the right side of my head above my sikh area. B12 was normal. Patient presents for evaluation of multiple neurologic symptoms. Notes that her whole life she has been experiencing migraines, increased February of this year and was experiencing about 6-8 a month with associated dizziness, confusion. Notes that his headaches were very debilitating as well. 1 headache could last 3 to 4 days at a time and Imitrex was no longer working. Saw her primary care and was switched to Maxalt, this was not effective. Then was seen by Dr. Don, general neurology, at the end of April. Was started on Topamax 50 mg, magnesium 500 mg and Relpax for abortive relief. Notes that she has had some moderate benefit in headache reduction since starting these medications. Is now getting 1-2 headaches a month lasting up to 2 days at a time. Does note that the Relpax does help with abortive relief as well. However, in early June she began experiencing multiple different symptoms. Notes that she started experiencing pain specifically from the shoulders up, around the scalp. Notes that she felt as if her skin was crawling, paresthesias throughout the scalp and shoulders. States that she was feeling her scalp and noticed new indentations on her scalp itself. [place] these were very tender but also notes all over scalp tenderness. Also reporting some paresthesias in her hands when she wakes up and occasionally in her feet. Describing some pain throughout as well in similar locations. No falls. No other etiology for onset of symptoms. Has never had any symptoms like this before. Notes that with any manipulation of her hair or scalp she elicits the symptoms. 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 Patient also reporting significant fatigue. Notes that she has had to reduce her hours of work due to the fatigue and discomfort noted above. Also notes that last week she was very fatigued, went home early from work and slept for 2 days straight which is very atypical for her. Also notes increased photophobia at baseline. Prior therapies: Prozac TPM Relpax Aldactone Imitrex NSAIDs MG Labs/Imaging B12 is normal Medications: Current Outpatient Medications Medication Sig Dispense Refill SEMAGLUTIDE, WEIGHT LOSS, SUBCUTANEOUS Inject 70 Units subcutaneously one time a week. 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 Also takes additional 30 mg equaling (60 mg) Fri topiramate (TOPAMAX) 50 mg tablet Take 1 tablet by mouth daily at bedtime. 30 tablet 3 eletriptan (RELPAX) 20 mg tablet Take 1 tablet (20 mg) by mouth as needed for migraine headache (see administration instructions) (2 max in 24 hours). at the onset of migraine headache. 12 tablet 1 spironolactone (ALDACTONE) 50 mg tablet Drospirenone-Ethinyl Estradiol (SUNDAR, 28,) 3-0.02 mg per tablet every 24 hours. FLUoxetine HCl 20 mg tablet Take 20 mg by mouth once daily. VITAMIN B COMPLEX-100 ORAL Take 1 tablet by mouth once daily. cholecalciferol (VITAMIN D) 1,000 unit tab Take 1,000 Units by mouth once daily. No current facility-administered medications for this visit. ROS ROS: Her ROS was positive for that mentioned in the HPI. Otherwise a 10-point ROS was completed and was negative. ALLERGIES Allergen Reactions Penicillins Anaphylaxis Past Medical History: PAST MEDICAL HISTORY Diagnosis Date Dysmenorrhea Dyspareunia Hypothyroidism also known nodule Papanicolaou smear of cervix with low grade (more content not included)... Normal [facility] CNOVon 07-22-2023 CNOV Office Visit ([facility] ) YOLANDE GOMES ([id number]) 1980 F Date Time Provider Department 07/22/23 4:00 PM ISABELA OLIVERA During your visit today, we recorded the following information about you: Pulse Respiration Blood pressure Weight 91/minute 16/minute 114/81 71.2 kg Height 1.6 m Isabela Olivera APRN.CASE AIDE 07/23/2023 12:50 PM Signed [facility] [place] [address] [place] [address] Date of Evaluation: 07/22/2023 Patient Name: Yolande Gomes : 1980 Chief Complaint: Patient presents with: Hair/Scalp Problem: 2 indentations on skull, sensitive to touch Fatigue: Onset 9 months Nursing Intake: There are no exam notes on file for this visit. Subjective Ms. Gomes is a 42 year old female who presents with the following complaint(s): The history is provided by the patient. 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 Yolande is here today to transfer care and with a few complaints. 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 Hx migraines, increasing in frequency since 02/2023: Following with neurology Dr. Don for migraines. New scalp indentations: Noticed the first one about 1 month ago, second indentation noticed about one week ago. No associated hair loss or itching but c/o scalp sensitivity/pain with this. Reports pain from posterior neck and head up through scalp to top of head, very sensitive, painful to touch, sometimes has tingling without touching it. No facial tingling or pain. C/o significant fatigue with this, worsening over the last year. Feels that she cannot get herself up and moving sometimes, despite sleeping well (6-8 hours/night uninterrupted). Has been getting very cold and having chills, to the point that she's shivering in the last month. Normal for her is to be more heat intolerant. This change started a few months ago. Wakes up with hand numbness and tingling intermittently- bilateral hands. Sometimes gets upper rib pain while working- sharp pains through ribs. Hx bouts of vertigo- vision changes/blurred vision in 04/19. Normal eye exam after this. Has been told that she has fluid on ears since 08/2022 and never had ear problems previously. Hx hypothyroidism: Last thyroid ultrasound through another system to monitor a thyroid nodule- about 1-2 years ago. Has been on Fluoxetine since 2018, Spironolactone x 8 years for skin (started by derm). Review of Systems Constitutional: Positive for chills and fatigue. Negative for activity change, appetite change, diaphoresis, fever and unexpected weight change. Eyes: Positive for visual disturbance. Respiratory: Negative for cough, chest tightness and shortness of breath. Cardiovascular: Negative for chest pain, palpitations and leg swelling. Gastrointestinal: Negative for abdominal pain, diarrhea, nausea and vomiting. Endocrine: Positive for cold intolerance. Negative for heat intolerance, polydipsia, polyphagia and polyuria. Musculoskeletal: Positive for arthralgias, myalgias and neck pain. Skin: Negative for rash and wound. Neurological: Positive for dizziness (intermittent- usually positional), numbness (intermittent, hands) and headaches. Negative for facial asymmetry, weakness and light-headedness. Scalp pain Hematological: Negative for adenopathy. Does not bruise/bleed easily. PAST MEDICAL HISTORY Diagnosis Date Dysmenorrhea Dyspareunia Hypothyroidism also known nodule Papanicolaou smear of cervix with low grade squamous intraepithelial lesion (LGSIL) 02/24/2006 PMH - PAST MEDICAL HISTORY OF bipolar, borderline personality disorder PAST SURGICAL HISTORY Procedure Laterality Date PAST SURGICAL HISTORY OF tonsils FAMILY HISTORY Problem Relation Age of Onset Cancer Maternal Grandfather unknown Heart Paternal Grandfather Stroke Paternal Grandfather Hypertension Maternal Grandmother Social History Tobacco Use Smoking status: Never Smokeless tobacco: Former Types: Chew Tobacco comments: For 3 years Substance Use Topics Alcohol use: Yes Comment: occasionally Drug use: No Current Outpatient Medications 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 Also takes additional 30 mg equaling (60 mg) Fri topiramate (TOPAMAX) 50 mg tablet Take 1 tablet by mouth daily at bedtime. eletriptan (RELPAX) 20 mg tablet Take 1 tablet (20 mg) by mouth as needed for migraine headache (see administration instructions) (2 max in 24 hours). at the onset of migraine headache. spironolactone (ALDACTONE) 50 mg tablet Drospirenone-Ethinyl Estradiol (SUNDAR, 28,) 3-0.02 mg per tablet every 24 hours. FLUoxetine HCl 20 mg tablet Take 20 mg by mouth once daily. VITAMIN B COMPLEX-100 ORAL Take 1 tablet by mouth once daily. cholecalciferol (VITAMIN (more content not included)... Normal [facility] T3, FREE [CCL]on 04-14-2023 Free T3 [Mass/Vol] 3.2 pg/mL Normal 2.3-4.1 [facility] Comment on above: Result Comment: [facility] [address] [place] [address] Carlos Finnegan III, M.D. [id number] Performed By: #### 2 12632 #### [facility],[address] [place] [address] CBC + DIFFon 04-10-2023 Baso # 0.10 x10EE3/UL Normal 0.00 - 0.10 [facility] Comment on above: Performed By: #### 2 80856 #### [facility],[address] [place], [place] [id number] Basophils/100 WBC (Bld) 1.2 % Normal 0.0 - 2.0 [facility] Comment on above: Performed By: #### 2 94015 #### [facility],[address] [place] [address] CBC + DIFF Normal [facility] Comment on above: Result Comment: CBC- COMPLETE BLOOD COUNT Performed By: #### 2 31527 #### [facility],[address] [place] [address] EO # 0.20 x10EE3/UL Normal 0.00 - 0.50 [facility] Comment on above: Performed By: #### 2 03958 #### [facility],[address] [place], [place] [id number] Eosinophils/100 WBC (Bld) 3.3 % Normal 0.0 - 7.0 [facility] Comment on above: Performed By: #### 2 49526 #### [facility],[address] [place] [address] Erythrocyte distribution width (RBC) [Ratio] 13.6 % Normal 12.0 - 15.6 [facility] Comment on above: Performed By: #### 2 46798 #### [facility],[address],[place] [address] Hematocrit (Bld) [Volume fraction] 46.8 % High 34.0 - 46.0 [facility] Comment on above: Performed By: #### 2 13960 #### [facility],[address] [place] [address] Hemoglobin (Bld) [Mass/Vol] 15.1 g/dL Normal 12.0 - 16.0 [facility] Comment on above: Performed By: #### 2 19716 #### [facility],[address] [place] [address] Lymph # 2.60 x10EE3/UL Normal 0.80 - 2.80 [facility] Comment on above: Performed By: #### 2 65383 #### [facility],[address] [place] [address] Lymphocytes/100 WBC (Bld) 41.4 % Normal 20.0 - 45.0 [facility] Comment on above: Performed By: #### 2 08822 #### [facility],[address] [place], [place] [id number] MANUAL DIFF N/A Normal [facility] Comment on above: Performed By: #### 2 89021 #### [facility],[address] [place], [place] [phone] MCH (RBC) [Entitic mass] 30 pg Normal 27 - 33 [facility] Comment on above: Performed By: #### 2 59841 #### [facility],[address] [place], [place] [phone] MCHC 32 X10 3 Normal 32 - 36 [facility] Comment on above: Performed By: #### 2 52739 #### [facility],[address] [place], [place] [phone] MCV (RBC) [Entitic vol] 92 fL Normal 80 - 99 [facility] Comment on above: Performed By: #### 2 00186 #### [facility],[address],[place] [address] [place] # 0.40 x10EE3/UL Normal 0.20 - 1.00 [facility] Comment on above: Performed By: #### 2 25767 #### [address] [address] MONOS % 5.9 % Normal 0.0 - 10.0 [facility] Comment on above: Performed By: #### 2 99888 #### [facility],[address] [place] [address] Morphology Daniel (Bld) [Interp] N/A Normal [facility] Comment on above: Result Comment: {CD] Performed By: #### 2 82890 #### [place] [address] Neut # 3.00 x10EE3/UL Normal 1.50 - 7.10 [facility] Comment on above: Performed By: #### 2 04403 #### [place] [address] Neutrophils/100 WBC (Bld) 48.2 % Normal 46.0 - 76.0 [facility] Comment on above: Performed By: #### 2 24272 #### [place] [address] PLATELET 356 x10EE3/UL Normal 150 - 450 [facility] Comment on above: Performed By: #### 2 39241 #### [place] [address] Platelet mean volume (Bld) [Entitic vol] 8.1 fL Normal 6.6 - 10.5 [facility] Comment on above: Result Comment: AUTO MATED DIFFERENTIAL Performed By: #### 2 07536 #### [place] [address] RBC 5.11 x 10EE6/UL Normal 4.10 - 5.30 [facility] Comment on above: Performed By: #### 2 82267 #### [place] [address],[place] [address] WBC 6.2 x 10EE3/UL Normal 4.5 - 10.8 [facility] Comment on above: Performed By: #### 2 07977 #### [facility],[address] [place] [address] CMP with eGFRon 04-10-2023 AGE 42 years Normal [facility] Comment on above: Performed By: #### 2 80154 #### [facility],[address] [place] [address] Albumin [Mass/Vol] 3.5 g/dL Normal 3.4 - 5.0 [facility] Comment on above: Performed By: #### 2 73525 #### [facility],[address] [place] [address] Albumin/Globulin [Mass ratio] 1.0 {ratio} Normal 0.9 - 1.6 [facility] Comment on above: Performed By: #### 2 86116 #### [facility],[address] [place] [address] ALK PHOS 79 U/L Normal 46 - 116 [facility] Comment on above: Performed By: #### 2 32016 #### [facility],[address] [place] [address] ALT [Catalytic activity/Vol] 20 U/L Normal 14 - 59 [facility] Comment on above: Performed By: #### 2 07638 #### [facility],[address] [place] [address] Anion gap [Moles/Vol] 12 mmol/L Normal 10 - 20 [facility] Comment on above: Performed By: #### 2 76754 #### [facility],[address] [place] [address]76 AST [Catalytic activity/Vol] 21 U/L Normal 13 - 39 [facility] Comment on above: Performed By: #### 2 69493 #### [facility],[address] [place] [address] B/C RATIO 15 ratio Normal 0 - 30 [facility] Comment on above: Performed By: #### 2 65483 #### [facility],[address] [place] [address] Bilirubin [Mass/Vol] 0.6 mg/dL Normal 0.2 - 1.0 [facility] Comment on above: Performed By: #### 2 19403 #### [facility],[address] [place] [address] Calcium [Mass/Vol] 8.7 mg/dL Normal 8.5 - 10.1 [facility] Comment on above: Performed By: #### 2 32276 #### [facility],[address] [place] [address] Chloride [Moles/Vol] 104 mmol/L Normal 98 - 107 [facility] Comment on above: Performed By: #### 2 28374 #### [facility],[address] [place] [address] CMP with eGFR Normal [facility] Comment on above: Result Comment: COMP REHENSIVE METABOLIC PANEL Performed By: #### 2 53106 #### [facility],[address] [place] [address] CO2 [Moles/Vol] 28.6 mmol/L Normal 21.0 - 32.0 [facility] Comment on above: Performed By: #### 2 45842 #### [facility],[address] [place] [address] Creatinine [Mass/Vol] 0.72 mg/dL Normal 0.55 - 1.02 [facility] Comment on above: Performed By: #### 2 83139 #### [facility],[address] [place] [address] GFR/1.73 sq M.predicted among non-blacks MDRD (S/P/Bld) [Vol rate/Area] mL/min/{1.73_m2} Normal 60 - 999 [facility] Comment on above: Performed By: #### 2 27529 #### [facility],[address] [place] [address] Result Comment: ACCO RDING TO THE NATIONAL KIDNEY DISEASE EDUCATION PROGRAM(NKDE), A NORMAL eGFR IS A VALUE GREATER THAN OR EQUAL TO 60 ML/MIN/1.73 SQ METERS. CHRONIC KIDNEY DISEASE: <60mL/MIN/1.73 SQ METERS KIDNEY FAILURE: <15mL/MIN/1.73 SQ METERS THIS TEST SHOULD ONLY BE USED FOR PATIENTS 18 YEARS OF AGE AND OLDER. Globulin (S) [Mass/Vol] 3.5 g/dL Normal 1.5 - 3.8 [facility] Comment on above: Performed By: #### 2 11881 #### [facility],[address] [place] [address] Glucose [Mass/Vol] 82 mg/dL Normal 74 - 106 [facility] Comment on above: Performed By: #### 2 23534 #### [facility],[address] [place] [address] Potassium [Moles/Vol] 4.9 mmol/L Normal 3.5 - 5.1 [facility] Comment on above: Performed By: #### 2 22245 #### [facility],[address] [place] [address] Protein [Mass/Vol] 7.0 g/dL Normal 6.4 - 8.2 [facility] Comment on above: Performed By: #### 2 87298 #### [facility],[address] [place] [address] Sodium [Moles/Vol] 140 mmol/L Normal 136 - 145 [facility] Comment on above: Performed By: #### 2 32649 #### [facility],[address] [place] [address] Urea nitrogen [Mass/Vol] 11 mg/dL Normal 7 - 18 [facility] Comment on above: Performed By: #### 2 06296 #### [facility],[address] [place] [address] HEMOGLOBIN A1C (POM)on 04-10 Glucose [Mass/Vol] 108.3 mg/dL High 0.0 - 0.0 [facility] Comment on above: Result Comment: BLDo HEMOGLOBIN A1C REFERENCE RANGESBLDo Suggested Diagnosis HbA1c(%) HbA1C (mmol/mol Diabetic >/=6.5 >/=48 Prediabetes 5.7 - 6.4 39 - 47 Normal <5.7 <39 Performed By: #### 2 83208 #### [facility],[address] [place] [address] HbA1c (Bld) [Mass fraction] 5.4 % Normal 0.0 - 6.5 [facility] Comment on above: Performed By: #### 2 73227 #### [place] [id number] T4-FREE (FREE THYROXINE)on 0 04-10-2023 Free T4 [Mass/Vol] 0.62 ng/dL Low 0.76 - 1.46 [facility] Comment on above: Result Comment: P otential of falsely elevated results when biotin concentrations are > 10 ng/mL. Performed By: #### 2 75301 #### [address] [address] TSHon 04-10-2023 TSH Qn 1.37 m[IU]/L Normal 0.35 - 3.74 [facility] Comment on above: Performed By: #### 2 32616 #### [address] [address] CMP with eGFRon 01-08-2023 AGE 42 years Normal [facility] Comment on above: Performed By: #### 2 19129 #### [address] [address] Albumin [Mass/Vol] 3.7 g/dL Normal 3.4 - 5.0 [facility] Comment on above: Performed By: #### 2 95447 #### [facility],[address] [place] [address] Albumin/Globulin [Mass ratio] 1.2 {ratio} Normal 0.9 - 1.6 [facility] Comment on above: Performed By: #### 2 22276 #### [facility],[address] [place] [address] ALK PHOS 76 U/L Normal 46 - 116 [facility] Comment on above: Performed By: #### 2 10447 #### [facility],[address] [place] [address] ALT [Catalytic activity/Vol] 17 U/L Normal 14 - 59 [facility] Comment on above: Performed By: #### 2 54690 #### [facility],[address] [place] [address] Anion gap [Moles/Vol] 14 mmol/L Normal 10 - 20 [facility] Comment on above: Performed By: #### 2 37183 #### [facility],[address] [place] [address] AST [Catalytic activity/Vol] 15 U/L Normal 13 - 39 [facility] Comment on above: Performed By: #### 2 92735 #### [facility],[address] [place] [address] B/C RATIO 25 ratio Normal 0 - 30 [facility] Comment on above: Performed By: #### 2 49061 #### [facility],[address] [place] [address] Bilirubin [Mass/Vol] 0.6 mg/dL Normal 0.2 - 1.0 [facility] Comment on above: Performed By: #### 2 77341 #### [facility],[address] [place] [address] Calcium [Mass/Vol] 9.4 mg/dL Normal 8.5 - 10.1 [facility] Comment on above: Performed By: #### 2 69293 #### [facility],[address] [place] [address] Chloride [Moles/Vol] 103 mmol/L Normal 98 - 107 [facility] Comment on above: Performed By: #### 2 12698 #### [facility],[address] [place] [address] CMP with eGFR Normal [facility] Comment on above: Result Comment: COMP REHENSIVE METABOLIC PANEL Performed By: #### 2 42989 #### [facility],[address] [place] [address] CO2 [Moles/Vol] 27.2 mmol/L Normal 21.0 - 32.0 [facility] Comment on above: Performed By: #### 2 44265 #### [facility],[address] [place] [address] Creatinine [Mass/Vol] 0.65 mg/dL Normal 0.55 - 1.02 [facility] Comment on above: Performed By: #### 2 91576 #### [facility],[address] [place] [address] eGFR 99 ML/MINUTE Normal 60 - 999 [facility] Comment on above: Performed By: #### 2 10757 #### [facility],[address] [place] [address] eGFR(AA) 120 ML/MINUTE Normal 60 - 999 [facility] Comment on above: Result Comment: ACCO RDING TO THE NATIONAL KIDNEY DISEASE EDUCATION PROGRAM(NKDE), A NORMAL eGFR IS A VALUE GREATER THAN OR EQUAL TO 60 ML/MIN/1.73 SQ METERS. CHRONIC KIDNEY DISEASE: <60mL/MIN/1.73 SQ METERS KIDNEY FAILURE: <15mL/MIN/1.73 SQ METERS THIS TEST SHOULD ONLY BE USED FOR PATIENTS 18 YEARS OF AGE AND OLDER. Performed By: #### 2 77915 #### [facility],[address],[place] [address] Globulin (S) [Mass/Vol] 3.1 g/dL Normal 1.5 - 3.8 [facility] Comment on above: Performed By: #### 2 55508 #### [facility],[address] [place] [address] Glucose [Mass/Vol] 75 mg/dL Normal 74 - 106 [facility] Comment on above: Performed By: #### 2 32508 #### [facility],[address] [place] [address] Potassium [Moles/Vol] 4.6 mmol/L Normal 3.5 - 5.1 [facility] Comment on above: Performed By: #### 2 68223 #### [facility],[address] [place] [address] Protein [Mass/Vol] 6.8 g/dL Normal 6.4 - 8.2 [facility] Comment on above: Performed By: #### 2 23996 #### [facility],[address] [place] [address] Sodium [Moles/Vol] 140 mmol/L Normal 136 - 145 [facility] Comment on above: Performed By: #### 2 09144 #### [facility],[address] [place] [address] Urea nitrogen [Mass/Vol] 16 mg/dL Normal 7 - 18 [facility] Comment on above: Performed By: #### 2 19440 #### [facility],[address] [place] [address] TSHon 01-07-2023 TSH Qn 0.01 m[IU]/L Low 0.35 - 3.74 [facility] Comment on above: Performed By: #### 2 47219 #### [facility],[address] [place] [address] HEMOGLOBIN A1C (POM)on 01-06 HbA1c (Bld) [Mass fraction] 5.4 % Normal 0.0 - 6.5 [facility] Comment on above: Result Comment: BLDo HEMOGLOBIN A1C REFERENCE RANGESBLDo Suggested Diagnosis HbA1c(%) HbA1C (mmol/mol Diabetic >/=6.5 >/=48 Prediabetes 5.7 - 6.4 39 - 47 Normal <5.7 <39 Performed By: #### 2 91372 #### [facility],[address] [place] [address] CV VENOUS LEG RTon 3 CV VENOUS LEG RT [place] [address] Patient: YOLANDE GOMES Phone#: : 1980 Age: 42 Gender: F Pt. Type: Out Account: [id number] Location: Ordering: [facility] Exam Date: 12/17/202213:39 Family Phys: Charge Code: [id number] Physician: Clay Order #: [id number] Dose#: PROCEDURE: VENOUS DOPPLER RT LEG COMPARISON: None. INDICATIONS: Swelling TECHNIQUE: Color duplex Doppler ultrasound evaluation analysis was performed in the usual manner. VOICE WRITING REPORTER: CATHY RISK FACTORS FOR VENOUS DISEASE: Other Swelling EXAMINATION: RIGHT +Present -Reduced o Absent LEFT SPONT PHASIC AUG REFLUX COMP SPONT PHASIC AUG REFLUX COMP + + + o + CFV + + + o + + SFJ + + + o + FV (prox) + + FV (mid) + FV (dist) + + + o + POP V + + + o + T/P TRUNK + + + o + PTV + + + o + PERONEAL V + GSV GASTROC SOLEAL V VOICE WRITING REPORTER'S NOTES: FINDINGS: THROMBI: None visible. Continued Report - Page 2 of 2 Patient: YOLANDE GOMES Phone#: : 1980 Age: 42 Gender: F Pt. Type: Out Account: [id number] Location: Ordering: [facility] Exam Date: 12/17/202213:39 Family Phys: Charge Code: [id number] Physician: Clay Order #: [id number] Dose#: COMPRESSIBILITY: Normal. OTHER: Negative. CONCLUSION: 1. There is no evidence of superficial or deep vein thrombus. Dictated by: Meri Marroquin MD on 12/17/2022 at 14:18 Approved by: Meri Marroquin MD on 12/17/2022 at 14:19 Normal [facility] TSHon 05-13-2022 TSH Qn 2.48 m[IU]/L Normal 0.35 - 3.74 [facility] Comment on above: Performed By: #### 2 07262 #### [facility],[address] [place] [address] CBC (INCLUDES DIFF/PLT)on Basophils (Bld) [#/Vol] 0.058 10*3/uL Normal 0-200 [facility] Comment on above: Performed By: #### 6 399 #### [facility] [place] [address] Technology Support Analyst: Rakan Ashraf MD Basophils/100 WBC (Bld) 0.7 % Normal [facility] Comment on above: Performed By: #### 6 399 #### [facility] [place] [address] Technology Support Analyst: Rakan Ashraf MD Eosinophils (Bld) [#/Vol] 0.257 10*3/uL Normal 15-500 [facility] Comment on above: Performed By: #### 6 399 #### [facility] [place] [address] Technology Support Analyst: Rakan Ashraf MD Eosinophils/100 WBC (Bld) 3.1 % Normal [facility] Comment on above: Performed By: #### 6 399 #### [facility] [place] [address] Technology Support Analyst: Rakan Ashraf MD Erythrocyte distribution width (RBC) [Ratio] 12.0 % Normal 11.0-15.0 [facility] Comment on above: Performed By: #### 6 399 #### [facility] [address] [place] [address] Technology Support Analyst: Rakan Ashraf MD Hematocrit (Bld) [Volume fraction] 42.6 % Normal 35.0-45.0 [facility] Comment on above: Performed By: #### 6 399 #### [facility] [place] [address] Technology Support Analyst: Rakan Ashraf MD Hemoglobin (Bld) [Mass/Vol] 14.6 g/dL Normal 11.7-15.5 [facility] Comment on above: Performed By: #### 6 399 #### [facility] [place] [address] Technology Support Analyst: Rakan Ashraf MD Lymphocytes (Bld) [#/Vol] 3.478 10*3/uL Normal 850-3900 [facility] Comment on above: Performed By: #### 6 399 #### [facility] of [place] [address] Technology Support Analyst: Rakan Ashraf MD Lymphocytes/100 WBC (Bld) 41.9 % Normal [facility] Comment on above: Performed By: #### 6 399 #### [facility] [place] [address] Technology Support Analyst: Rakan Ashraf MD MCH (RBC) [Entitic mass] 30.8 pg Normal 27.0-33.0 [facility] Comment on above: Performed By: #### 6 399 #### [facility] [place] [address] Technology Support Analyst: Rakan Ashraf MD MCHC (RBC) [Mass/Vol] 34.3 g/dL Normal 32.0-36.0 [facility] Comment on above: Performed By: #### 6 399 #### [facility] of [place] [address] Technology Support Analyst: Rakan Ashraf MD MCV (RBC) [Entitic vol] 89.9 fL Normal 80.0-100.0 [facility] Comment on above: Performed By: #### 6 399 #### [facility] of [place] [address] Technology Support Analyst: Rakan Ashraf MD Monocytes (Bld) [#/Vol] 0.573 10*3/uL Normal 200-950 [facility] Comment on above: Performed By: #### 6 399 #### [facility] [place] [address] Technology Support Analyst: Rakan Ashraf MD Monocytes/100 WBC (Bld) 6.9 % Normal [facility] Comment on above: Performed By: #### 6 399 #### [facility] of [place] [address] Technology Support Analyst: Rakan Ashraf MD Neutrophils (Bld) [#/Vol] 3.934 10*3/uL Normal 8722-7868 [facility] Comment on above: Performed By: #### 6 399 #### [facility] of [place] [address] Technology Support Analyst: Rakan Ashraf MD Neutrophils/100 WBC (Bld) 47.4 % Normal [facility] Comment on above: Performed By: #### 6 399 #### [facility] of [place] [address] Technology Support Analyst: Rakan Ashraf MD Platelet mean volume (Bld) [Entitic vol] 10.4 fL Normal 7.5-12.5 [facility] Comment on above: Performed By: #### 6 399 #### [facility] of [place] [address] Technology Support Analyst: Rakan Ashraf MD Platelets (Bld) [#/Vol] 311 10*3/uL Normal 140-400 [facility] Comment on above: Performed By: #### 6 399 #### [facility] of [place] [address] Technology Support Analyst: Rakan Ashraf MD RBC (Bld) [#/Vol] 4.74 10*6/uL Normal 3.80-5.10 [facility] Comment on above: Performed By: #### 6 399 #### [facility] [address], [address] [place] [address] Technology Support Analyst: Rakan Ashraf MD WBC (Bld) [#/Vol] 8.3 10*3/uL Normal 3.8-10.8 [facility] Comment on above: Performed By: #### 6 399 #### [facility] [address], [address] [place] [address] Technology Support Analyst: Rakan Ashraf MD SARS CoV 2 SEROLOGY (COVID 1 9) AB (IGG), IAon 04-04-2020 SARS CoV 2 AB IGG Positive Abnormal [facility] Comment on above: Result Comment: Reference range: Negative This test is intended for use as an aid in identifying individuals with an adaptive immune response to SARS-CoV-2, indicating recent or prior infection. Results are for the detection of SARS-CoV-2 antibodies. IgG antibodies to SARS-CoV-2 are generally detectable in blood several days after initial infection, although the duration of time antibodies are present post-infection is not well characterized. At this time, it is unknown for how long antibodies persist following infection and if the presence of antibodies confers protective immunity. Individuals may have detectable virus by molecular testing present for several weeks following seroconversion. Negative results do not preclude acute SARS-CoV-2 infection. This test should not be used to diagnose acute SARS-CoV-2 infection. If acute infection is suspected, direct testing by molecular methods for SARS-CoV-2 is necessary. False positive results for the test may occur due to cross-reactivity from pre-existing antibodies or other possible causes. Please review the Fact Sheets available for health care providers and patients using the following websites: GetLikeminds.ShowMe VIdeoke/home/Covid-19/HCP/antibody/fact-sheet1 [employer]/home/Covid-19/Patients/antibody/fact-sheet1 This test has been authorized by the FDA under an Emergency Use Authorization (EUA) for use by authorized laboratories. The FDA authorized labeling is available on the [employer] website: www.GetLikeminds.ShowMe VIdeoke/Covid19. 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 [facility] Comment on above: Result Comment: Nega tive for This test was developed and its performance characteristics determined by [facility] [place]. This test has been authorized by FDA under an Emergency Use Authorization (EUA). This test has been validated in accordance with the FDA's Guidance Document Policy for Diagnostics Testing in Laboratories Certified to Perform High Complexity Testing under CLIA prior to Emergency use Authorization for Coronavirus Disease 2019 during the Public Health Emergency issued on April 24, 2019. COVID19 (SARS This test was developed and its performance characteristics determined by [facility] [place]. This test has been authorized by FDA under an Emergency Use Authorization (EUA). This test has been validated in accordance with the FDA's Guidance Document Policy for Diagnostics Testing in Laboratories Certified to Perform High Complexity Testing under CLIA prior to Emergency use Authorization for Coronavirus Disease 2019 during the Public Health Emergency issued on April 24, 2019. CoV2) by PCR. This test was developed and its performance characteristics determined by [facility] [place]. This test has been authorized by FDA under an Emergency Use Authorization (EUA). This test has been validated in accordance with the FDA's Guidance Document Policy for Diagnostics Testing in Laboratories Certified to Perform High Complexity Testing under CLIA prior to Emergency use Authorization for Coronavirus Disease 2019 during the Public Health Emergency issued on April 24, 2019. 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 [facility] Comment on above: Result Comment: Naso pharyngeal Corrected on 11/05 AT 1329: Previously reported as U Swab Corrected on 11/05 AT 1329: Previously reported as U HEMOGLOBIN A1con 06-11-2019 HbA1c (Bld) [Mass fraction] 5.1 % of total Hgb Normal <5.7 [facility] Comment on above: Result Comment: For the purpose of screening for the presence of diabetes: <5.7% Consistent with the absence of diabetes 5.7-6.4% Consistent with increased risk for diabetes (prediabetes) > or =6.5% Consistent with diabetes This assay result is consistent with a decreased risk of diabetes. Currently, no consensus exists regarding use of hemoglobin A1c for diagnosis of diabetes in children. According to [place] Diabetes Association (ADA) guidelines, hemoglobin A1c <7.0% represents optimal control in non- diabetic patients. Different metrics may apply to specific patient populations. Standards of Medical Care in Diabetes(ADA). Performed By: #### 5 081, 496, 899, 77838, 866 #### [facility]-[address], [address] [place] [address] Technology Support Analyst: Rakan Ashraf MD T3, FREE 06-11-2019 Free T3 [Mass/Vol] 3.0 pg/mL Normal 2.3-4.2 [facility] Comment on above: Performed By: #### 5 081, 496, 899, 82885, 866 #### [facility]-[address], [address] [place] [address] Technology Support Analyst: Rakan Ashraf MD T4, FREE 06-11-2019 Free T4 [Mass/Vol] 1.1 ng/dL Normal 0.8-1.8 [facility] Comment on above: Performed By: #### 5 081, 496, 899, 30818, 866 #### [facility], [address] [place] [address] Technology Support Analyst: Rakan Ashraf MD THYROID PEROXIDASE ANTIBODIE Son 06-11-2019 THYROID PEROXIDASE ANTIBODIES 1 IU/mL Normal <9 [facility] Comment on above: Performed By: #### 5 081, 496, 899, 95322, 866 #### [facility]-[place] [address] Technology Support Analyst: Rakan sAhraf MD TSHon 06-11-2019 TSH Qn 2.18 m[IU]/L Normal [facility] Comment on above: Result Comment: Refe rence Range > or = 20 Years 0.40-4.50 Ranges First trimester 0.26-2.66 Second trimester 0.55-2.73 Third trimester 0.43-2.91 Performed By: #### 5 081, 496, 899, 59895, 866 #### [facility]-[place] [address] [facility], [address] [place] [address] Technology Support Analyst: Rakan Ashraf MD External Other: Preferred Me thod of Contacton 09-10-2016 methcontact secmsg [employer] Work Phone: Patient's prefered method of contact secmsg Invalid Interpretation Code [facility] Work Phone: [phone] Office Visiton 09-10-2016 Documentation of current medications (procedure) Done Invalid Interpretation Code [facility] Work Phone: [phone] Fall risk assessment Fall risk assessment [facility] Work Phone: [phone] Protein mass conc Done [facility] Work Phone: [phone] Tobacco smoking status NHIS Never smoker [facility] Work Phone: [phone] Tobacco use [facility] Never smoker Invalid Interpretation Code [facility] Work Phone: [phone] Replaced Document: Hebert SOTO Observationson 09-10-2016 EKG QRS axis 38 deg [facility] Work Phone: [phone] electrocardiogram interpretation Sinus Rhythm Diffuse low voltage. ABNORMAL Invalid Interpretation Code [facility] Work Phone: [phone] GE use only - for [employer] import when terms are not otherwise specified 387 ms Invalid Interpretation Code [facility] Work Phone: [phone] Interpretation Sinus Rhythm Diffuse low voltage. ABNORMAL [facility] Work Phone: [phone] P [place] 43 deg [facility] Work Phone: [phone] P wave axis, electrocardiogram 43 deg Invalid Interpretation Code [facility] Work Phone: [phone] MD Interval 150 ms [facility] Work Phone: [phone] MD interval, electrocardiogram 150 ms Invalid Interpretation Code [facility] Work Phone: [phone] Pulse (Heart Rate) 80 /min Invalid Interpretation Code [facility] Work Phone: [phone] QRS axis, electrocardiogram 38 deg Invalid Interpretation Code [facility] [employer] Work Phone: [phone] QRS Duration 82 ms [facility] Work Phone: [phone] QRS duration, electrocardiogram 82 ms Invalid Interpretation Code [facility] Work Phone: [phone] QT Interval new path ms [facility] Work Phone: [phone] QT interval, electrocardiogram new path ms Invalid Interpretation Code [facility] Work Phone: [phone] QTc [place] 387 ms [facility] Work Phone: [phone] [place]dwell 24 deg [facility] Work Phone: [phone] T wave axis, electrocardiogram 24 deg Invalid Interpretation Code [employer] Work Phone: [phone] 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 Triglyceride 60 mg/dL [facility] Work Phone: [phone] Lab Report: Lipid Profileon 07-17-2015 Cholesterol 164 mg/dL 200 [employer] Work Phone: [phone] HDL Cholesterol 55 mg/dL [employer] Work Phone: [phone] LDL Cholesterol 86 mg/dL 0-130 [employer] Work Phone: [phone] very low density lipoproteins 23 mg/dL 5-40 [employer] Work Phone: [phone] Lab Report: Comprehensive Dc tabolic Profilon 07-14-2015 Alanine aminotransferase (ALT) 24 U/L 12-78 [facility] Work Phone: [phone] Albumin 3.8 g/dL 3.4-5.0 [employer] Work Phone: [phone] Albumin/Globulin Ratio 1.3 {ratio} 0.9-2.4 [facility] Work Phone: [phone] Alkaline phosphatase (ALP) 51 U/L Invalid Interpretation Code 50-136 [employer] Work Phone: [phone] ALP enzyme act/vol (Bld) 51 U/L 50-136 [facility] Work Phone: Anion gap 4 mmol/L Low 5-15 [facility] Work Phone: [phone] Anion gap molar conc 4 mmol/L Low 5-15 [facility] Work Phone: [phone] Aspartate aminotransferase (AST) 16 U/L 15-37 [facility] Work Phone: [phone] Bilirubin (total) 1.10 mg/dL High 0.20-1.00 [facility] Work Phone: [phone] BUN/Creatinine Ratio 17.0 RATIO 10-[address] [facility] Work Phone: [phone] Calcium 9.0 mg/dL 8.5-10.1 [facility] Work Phone: [phone] Chloride 105 mmol/L 98-107 [facility] Work Phone: [phone] CO2 32.0 mmol/L Invalid Interpretation Code 21.0-32.0 [facility] [facility] Work Phone: [phone] CO2 ppres (BldV) 32.0 mmol/L 21.0-32.0 [facility] Work Phone: [phone] Creatinine 0.71 mg/dL 0.55-1.20 [facility] Work Phone: [phone] eGFR (non-black) 120 mL/min/{1.73_m2} Invalid Interpretation Code >60 [facility] [employer] Work Phone: [phone] eGFR (non-black) 99 mL/min/{1.73_m2} >60 [facility] Work Phone: [phone] EST GFR - AA 120 mL/min >60 [employer] Work Phone: [phone] Globulin 3.0 g/dL Invalid Interpretation Code 2.3-3.5 [facility] Work Phone: [phone] Globulin mass conc (S) 3.0 g/dL 2.3-3.5 [employer] Work Phone: [phone] Glucose 89 mg/dL Invalid Interpretation Code 70-110 [facility] Work Phone: [phone] Glucose mass conc 89 mg/dL 70-110 [facility] Work Phone: Potassium 4.4 mmol/L 3.5-5.1 [facility] Work Phone: [phone] Protein 6.8 g/dL 6.4-8.2 [facility] Work Phone: [phone] Sodium 141 mmol/L 136-145 [facility] Work Phone: [phone] Urea nitrogen 12 mg/dL 7-18 [facility] Work Phone: [phone] Lab Report: Hemoglobin A1con 07-14-2015 HbA1c 5.1 % 4.2-6.3 [facility] Work Phone: [phone] Office Visit: Establish Care on 07-03-2015 Alcoholism counseling (procedure) no Invalid Interpretation Code [facility] Work Phone: [phone] Documentation of current medications (procedure) Done Invalid Interpretation Code [facility] Work Phone: [phone] Protein mass conc Done [facility] Work Phone: Protein mass conc no [facility] Work Phone: Tobacco smoking status NHIS Never [facility] [facility] Work Phone: [phone] Tobacco smoking status [facility] Never smoker [employer] Work Phone: Tobacco use [facility] Never smoker Invalid Interpretation Code [facility] Work Phone: [phone] Vital Signs Date Time Vital Sign Value Performing Clinician Facility 06-24-2024 13:33-0400 Body height 160 cm Olga Nieves PA-C Work Phone: [facility] 06-24-2024 13:33-0400 Body mass index (BMI) [Ratio] 28.52 kg/m2 Olga Nieves PA-C Work Phone: [facility] 06-24-2024 13:33-0400 Body temperature 97.2 [degF] Olga Nieves PA-C Work Phone: [facility] 06-24-2024 13:33-0400 Body weight 73.03 kg Olga Nieves PA-C Work Phone: [facility] 06-24-2024 13:33-0400 Diastolic blood pressure 60 mm[Hg] Olga Paskert PA-C Work Phone: [facility] 06-24-2024 13:33-0400 Heart rate 80 /min Olga Paskert PA-C Work Phone: [facility] 06-24-2024 13:33-0400 Systolic blood pressure 104 mm[Hg] Olga Paskert PA-C Work Phone: [facility] 06-23-2024 13:27-0400 Body mass index (BMI) [Ratio] 28.63 kg/m2 Nnamdi Fairbanks MD Work Phone: [facility] 06-23-2024 13:27-0400 Body temperature 98.2 [degF] Nnamdi Fairbanks MD Work Phone: [facility] 06-23-2024 13:27-0400 Body weight 73.3 kg Nnamdi Fairbanks MD Work Phone: [facility] 06-23-2024 13:27-0400 Diastolic blood pressure 82 mm[Hg] Nnadmi Fairbanks MD Work Phone: [facility] Comment on above: copied from [employer] 06-23-2024 13:27-0400 Heart rate 86 /min Nnamdi Fairbanks MD Work Phone: [facility] 06-23-2024 13:27-0400 Respiratory rate 20 /min Nnamdi Fairbanks MD Work Phone: [facility] 06-23-2024 13:27-0400 SaO2% (BldA) [Mass fraction] 100 % Nnamdi Fairbanks MD Work Phone: [facility] 06-23-2024 13:27-0400 Systolic blood pressure 126 mm[Hg] Nnamdi Fairbanks MD Work Phone: [facility] Comment on above: copied from [facility] [employer] [facility] 06-23-2024 12:46-0400 Body mass index (BMI) [Ratio] 28.63 kg/m2 Alexace Chandra EPIC ANALYST.CASE AIDE Work Phone: [facility] 06-23-2024 12:46-0400 Body temperature 98.2 [degF] Alexace Chandra EPIC ANALYST.CASE AIDE Work Phone: [facility] 06-23-2024 12:46-0400 Body weight 73.3 kg Alexace Chandra EPIC ANALYST.CASE AIDE Work Phone: [facility] 06-23-2024 12:46-0400 Diastolic blood pressure 82 mm[Hg] Alexace Chandra EPIC ANALYST.CASE AIDE Work Phone: [facility] 06-23-2024 12:46-0400 Heart rate 86 /min Alexace Chandra EPIC ANALYST.CASE AIDE Work Phone: [facility] 06-23-2024 12:46-0400 Respiratory rate 20 /min Alexace Chandra EPIC ANALYST.CASE AIDE Work Phone: [facility] 06-23-2024 12:46-0400 SaO2% (BldA) [Mass fraction] 100 % Alexace Chandra EPIC ANALYST.CASE AIDE Work Phone: [facility] 06-23-2024 12:46-0400 Systolic blood pressure 126 mm[Hg] Alexace Chandra EPIC ANALYST.CASE AIDE Work Phone: [facility] 06-15-2024 10:09-0400 Body height 160 cm Pac 3 Work Phone: [facility] 06-15-2024 10:09-0400 Body mass index (BMI) [Ratio] 28.63 kg/m2 Pac 3 Work Phone: [facility] 06-15-2024 10:09-0400 Body temperature 98.6 [degF] Pac 3 Work Phone: [facility] 06-15-2024 10:09-0400 Body weight 73.3 kg Pac 3 Work Phone: [facility] 06-15-2024 10:09-0400 Diastolic blood pressure 76 mm[Hg] Pacc 3 Work Phone: [facility] 06-15-2024 10:09-0400 Heart rate 92 /min Pac 3 Work Phone: [facility] 06-15-2024 10:09-0400 SaO2% (BldA) [Mass fraction] 98 % Pac 3 Work Phone: [facility] 06-15-2024 10:09-0400 Systolic blood pressure 117 mm[Hg] Pac 3 Work Phone: [facility] 06-03-2024 10:44-0400 Body height 162 cm Isiah Messina MD Work Phone: [facility] 06-03-2024 10:44-0400 Body mass index (BMI) [Ratio] 27.65 kg/m2 Isiah Messina MD Work Phone: [facility] 06-03-2024 10:44-0400 Body temperature 97.11 [degF] Isiah Messina MD Work Phone: [facility] 06-03-2024 10:44-0400 Body weight 72.58 kg Isiah Messina MD Work Phone: [facility] 06-03-2024 10:44-0400 Diastolic blood pressure 71 mm[Hg] Isiah Messina MD Work Phone: [facility] 06-03-2024 10:44-0400 Heart rate 89 /min Isiah Messina MD Work Phone: [facility] 06-03-2024 10:44-0400 Systolic blood pressure 114 mm[Hg] Isiah Messina MD Work Phone: [facility] 05-31-2024 08:27-0400 Body height 162 cm Pradeep Taylor MD Work Phone: [facility] 05-31-2024 08:27-0400 Body mass index (BMI) [Ratio] 28.12 kg/m2 Pradeep Taylor MD Work Phone: [facility] 05-31-2024 08:27-0400 Body temperature 98.29 [degF] Pradeep Taylor MD Work Phone: [facility] 05-31-2024 08:27-0400 Body weight 73.8 kg Pradeep Taylor MD Work Phone: [facility] 05-31-2024 08:27-0400 Diastolic blood pressure 78 mm[Hg] Pradeep Taylor MD Work Phone: [facility] 05-31-2024 08:27-0400 Heart rate 87 /min Pradeep Taylor MD Work Phone: [facility] 05-31-2024 08:27-0400 Respiratory rate 20 /min Pradeep Taylor MD Work Phone: [facility] 05-31-2024 08:27-0400 SaO2% (BldA) [Mass fraction] 99 % Pradeep Taylor MD Work Phone: [facility] 05-31-2024 08:27-0400 Systolic blood pressure 138 mm[Hg] Pradeep Taylor MD Work Phone: [facility] 05-10-2024 09:58-0400 Body height 157.5 cm Lissette Mcleod APRN.CASE AIDE Work Phone: [facility] 05-10-2024 09:58-0400 Body mass index (BMI) [Ratio] 28.35 kg/m2 Lissette Mcleod APRN.CASE AIDE Work Phone: [facility] 05-10-2024 09:58-0400 Body weight 70.31 kg Lissette Mcleod APRN.CASE AIDE Work Phone: [facility] 01-07-2024 19:06-0500 Body mass index (BMI) [Ratio] 29.31 kg/m2 Mateo CERVANTES-Yves Work Phone: [facility] 01-07-2024 19:06-0500 Body temperature 97.3 [degF] Mateo CERVANTES-C Work Phone: [facility] 01-07-2024 19:06-0500 Body weight 72.7 kg Mateo Athy PA-C Work Phone: [facility] 01-07-2024 19:06-0500 Diastolic blood pressure 70 mm[Hg] Mateo Athy PA-C Work Phone: [facility] 01-07-2024 19:06-0500 Heart rate 88 /min Mateo Athy PA-C Work Phone: [facility] 01-07-2024 19:06-0500 Respiratory rate 16 /min Mateo Athy PA-C Work Phone: [facility] 01-07-2024 19:06-0500 SaO2% (BldA) [Mass fraction] 99 % Mateo Athy PA-C Work Phone: [facility] 01-07-2024 19:06-0500 Systolic blood pressure 122 mm[Hg] Mateo Athy PA-C Work Phone: [facility] 10-13-2023 12:45-0400 Body height 157.5 cm Elly Cuellar MD Work Phone: [facility] 10-13-2023 12:45-0400 Body mass index (BMI) [Ratio] 28.35 kg/m2 Elly Cuellar MD Work Phone: [facility] 10-13-2023 12:45-0400 Body temperature 98.01 [degF] Elly Cuellar MD Work Phone: [facility] 10-13-2023 12:45-0400 Body weight 70.31 kg Elly Cuellar MD Work Phone: [facility] 10-13-2023 12:45-0400 Diastolic blood pressure 87 mm[Hg] Elly Cuellar MD Work Phone: [facility] 10-13-2023 12:45-0400 Heart rate 83 /min Elly Cuellar MD Work Phone: [facility] 10-13-2023 12:45-0400 SaO2% (BldA) [Mass fraction] 100 % Elly Cuellar MD Work Phone: [facility] 10-13-2023 12:45-0400 Systolic blood pressure 120 mm[Hg] Elly Cuellar MD Work Phone: [facility] 09-16-2023 15:17-0400 Body height 157.5 cm Elly Cuellar MD Work Phone: [facility] 09-16-2023 15:17-0400 Body mass index (BMI) [Ratio] 28.51 kg/m2 Elly Cuellar MD Work Phone: [facility] 09-16-2023 15:17-0400 Body temperature 97.59 [degF] Elly Cuellar MD Work Phone: [facility] 09-16-2023 15:17-0400 Body weight 70.7 kg Elly Cuellar MD Work Phone: [facility] 09-16-2023 15:17-0400 Diastolic blood pressure 76 mm[Hg] Elly Cuellar MD Work Phone: [facility] 09-16-2023 15:17-0400 Heart rate 90 /min Elly Cuellar MD Work Phone: [facility] 09-16-2023 15:17-0400 SaO2% (BldA) [Mass fraction] 99 % Elly Cuellar MD Work Phone: [facility] 09-16-2023 15:17-0400 Systolic blood pressure 132 mm[Hg] Elly Cuellar MD Work Phone: [facility] 08-18-2023 08:42-0400 Body height 160 cm Glory Armstrong MD Work Phone: [facility] 08-18-2023 08:42-0400 Body mass index (BMI) [Ratio] 28.06 kg/m2 Glory Armstrong MD Work Phone: [facility] 08-18-2023 08:42-0400 Body temperature 98.6 [degF] Glory Armstrong MD Work Phone: [facility] 08-18-2023 08:42-0400 Body weight 71.85 kg Glory Armstrong MD Work Phone: [facility] 08-18-2023 08:42-0400 Diastolic blood pressure 76 mm[Hg] Glory Armstrong MD Work Phone: [facility] 08-18-2023 08:42-0400 Heart rate 101 /min Glory Armstrong MD Work Phone: [facility] 08-18-2023 08:42-0400 SaO2% (BldA) [Mass fraction] 99 % Glory Armstrong MD Work Phone: [facility] 08-18-2023 08:42-0400 Systolic blood pressure 112 mm[Hg] Glory Armstrong MD Work Phone: [facility] 08-01-2023 14:45-0400 Body mass index (BMI) [Ratio] 27.77 kg/m2 Makayla Queener PA-C Work Phone: [facility] 08-01-2023 14:45-0400 Body weight 71.1 kg Makayla Queener PA-C Work Phone: [facility] 08-01-2023 14:45-0400 Diastolic blood pressure 81 mm[Hg] Makayla Queener PA-C Work Phone: [facility] 08-01-2023 14:45-0400 Heart rate 85 /min Makayla Queener PA-C Work Phone: [facility] 08-01-2023 14:45-0400 Respiratory rate 16 /min Makayla Queener PA-C Work Phone: [facility] 08-01-2023 14:45-0400 SaO2% (BldA) [Mass fraction] 100 % Makayla Queener PA-C Work Phone: [facility] 08-01-2023 14:45-0400 Systolic blood pressure 115 mm[Hg] Makayla Queener PA-C Work Phone: [facility] 07-22-2023 16:27-0400 Body height 160 cm Isabela Jarod EPIC ANALYST.CASE AIDE Work Phone: [facility] 07-22-2023 16:27-0400 Body mass index (BMI) [Ratio] 27.81 kg/m2 Isabela Jarod EPIC ANALYST.CASE AIDE Work Phone: [facility] 07-22-2023 16:27-0400 Body weight 71.22 kg Isabela Jarod EPIC ANALYST.CASE AIDE Work Phone: [facility] 07-22-2023 16:27-0400 Diastolic blood pressure 81 mm[Hg] Isabela [place] EPIC ANALYST.CASE AIDE Work Phone: [facility] 07-22-2023 16:27-0400 Heart rate 91 /min Isabela [place] EPIC ANALYST.CASE AIDE Work Phone: [facility] 07-22-2023 16:27-0400 Respiratory rate 16 /min Isabela [place] EPIC ANALYST.CASE AIDE Work Phone: [facility] 07-22-2023 16:27-0400 SaO2% (BldA) [Mass fraction] 100 % Isabela Jarod EPIC ANALYST.CASE AIDE Work Phone: [facility] 07-22-2023 16:27-0400 Systolic blood pressure 114 mm[Hg] Isabela [place] EPIC ANALYST.CASE AIDE Work Phone: [facility] 05-15-2023 15:11-0400 Body weight 77 kg Crissy Don MD Work Phone: [facility] 05-15-2023 15:11-0400 Diastolic blood pressure 81 mm[Hg] Crissy Don MD Work Phone: [facility] 05-15-2023 15:11-0400 Heart rate 102 /min Crissy Don MD Work Phone: [facility] 05-15-2023 15:11-0400 Respiratory rate 16 /min Crissy Don MD Work Phone: [facility] 05-15-2023 15:11-0400 SaO2% (BldA) [Mass fraction] 98 % Crissy Don MD Work Phone: [facility] 05-15-2023 15:11-0400 Systolic blood pressure 115 mm[Hg] Crissy Don MD Work Phone: [facility] 08-23-2022 08:34-0400 Body height 157.48 cm PA-C [employer] PA Work Phone: [facility] 08-23-2022 08:24-0400 Body mass index (BMI) [Ratio] 32.1 kg/m2 PA-C [employer] PA Work Phone: [facility] 08-23-2022 08:24-0400 Body weight 79.6 kg PA-C [employer] PA Work Phone: [facility] 08-23-2022 08:24-0400 Diastolic blood pressure 76 mm[Hg] PA-C [employer] Work Phone: [facility] 08-23-2022 08:24-0400 Systolic blood pressure 116 mm[Hg] PA-C [employer] PA Work Phone: [facility] 09-10-2016 15:04-0400 BMI (Body Mass Index) 27.9 kg/m2 [facility] Work Phone: 09-10-2016 15:04-0400 BP Diastolic 60 mm[Hg] [facility] Work Phone: 09-10-2016 15:04-0400 BP Systolic 90 mm[Hg] [facility] Work Phone: 09-10-2016 15:04-0400 Height 158.75 cm [facility] Work Phone: 09-10-2016 15:04-0400 Pulse (Heart Rate) 88 /min Josephine Fallon [facility] Work Phone: 09-10-2016 15:04-0400 Respiratory Rate 20 /min Josephine Fallon [facility] Work Phone: 09-10-2016 15:04-0400 Weight 70.31 kg Josephine Fallon [facility] Work Phone: 09-10-2016 15:00-0400 Heart rate 80 /min Josephine Fallon [facility] Work Phone: 07-03-2015 09:16-0400 BMI (Body Mass Index) 27.07 kg/m2 Jessi Cortés RN [facility] Work Phone: 07-03-2015 09:16-0400 Body Temperature 98 [degF] Jessi Cortés RN [facility] Work Phone: 07-03-2015 09:16-0400 BP Diastolic 88 mm[Hg] Jessi Cortés RN [facility] Work Phone: 07-03-2015 09:16-0400 BP Systolic 128 mm[Hg] Jessi Cortés RN [facility] Work Phone: 07-03-2015 09:16-0400 BSA (Body Surface Area) 1.68 m2 Jessi Cortés RN [facility] Work Phone: 07-03-2015 09:16-0400 Height 157.48 cm Jessi Cortés RN [facility] Work Phone: 07-03-2015 09:16-0400 Pulse (Heart Rate) 80 /min Jessi Cortés RN [facility] Work Phone: 07-03-2015 09:16-0400 Respiratory Rate 16 /min Jessi Cortés RN [facility] Work Phone: 07-03-2015 09:16-0400 Weight 67.13 kg Jessi Cortés RN [facility] Work Phone: Encounters Encounter Date Encounter Type Care Provider Facility Start: 07-29-2024 End: 07-29-2024 ambulatory OLGA NAILS Facility:[facility] Start: 07-29-2024 End: 07-29-2024 Chart abstracting Isiah Messina MD Work Phone: Plastic Surgery Comment on above: PHOTOS TAKEN Start: 07-20-2024 End: 07-20-2024 ambulatory Injection Swapnil Hein Work Phone: Hematology/Oncology Comment on above: Ductal carcinoma in situ (DCIS) of right breast (Primary Dx) Start: 07-16-2024 End: 07-16-2024 ambulatory Kimberly CERVANTES Facility:[facility] Start: 07-15-2024 End: 07-15-2024 ambulatory OLGA NAILS Facility:[facility] Start: 07-14-2024 End: 07-14-2024 ambulatory KARY RIZZO Facility:[facility] Start: 07-06-2024 End: 07-06-2024 ambulatory [facility] Facility:[facility] Start: 07-05-2024 End: 07-05-2024 ambulatory [facility] Facility:[facility] Start: 07-01-2024 End: 07-01-2024 ambulatory OLGA NAILS Facility:[facility] Start: 06-30-2024 End: 06-30-2024 Orders Only Pradeep Taylor MD Work Phone: General Surgery Comment on above: Invasive ductal carc inoma of right breast (HCC) (Primary Dx); 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); Invasive ductal carcinoma of right breast (HCC) Start: 06-24-2024 End: 06-24-2024 Telephone encounter Nikia Rowland RN Work Phone: [facility] Comment on above: Returning Patient's Call Start: 06-24-2024 End: 06-24-2024 Patient encounter procedure Olga Nieves PA-C Work Phone: Plastic Surgery Comment on above: Post-operative state (Primary Dx); Post-operative pain Start: 06-24-2024 End: 06-24-2024 ambulatory OLGA NAILS Facility:[facility] Start: 06-23-2024 End: 06-23-2024 Patient encounter procedure Nnamdi Fairbanks MD Work Phone: Radiation Oncology Comment on above: Ductal carcinoma in situ (DCIS) of right breast Start: 06-23-2024 End: 06-23-2024 Postop follow up visit related to original px Kary Rizzo EPIC ANALYST.CASE AIDE Work Phone: [facility] Comment on above: Encounter for postop erative examination after surgery for malignant neoplasm (Primary Dx); Ductal carcinoma in situ (DCIS) of right breast; Invasive ductal carcinoma of right breast (HCC) Start: 06-23-2024 End: 06-23-2024 ambulatory KARY RIZZO Facility:[facility] Start: 06-16-2024 End: 06-16-2024 ambulatory [facility] Facility:[facility] Start: 06-15-2024 End: 06-15-2024 Preprocedural examination done Pac Main 3 Work Phone: [facility] Work Phone: Start: 06-15-2024 End: 06-15-2024 Patient encounter status Pac Main 3 Work Phone: [facility] Start: 06-15-2024 Encounter for other preprocedural examination KARY RIZZO [facility] Start: 06-15-2024 End: 06-15-2024 PAT Pacc Main 3 Work Phone: Pre Anesthesia Comment on above: Preoperative examina tion (Primary Dx); Hypothyroidism, acquired; Bipolar 1 disorder (HCC); Anxiety; Ductal carcinoma in situ (DCIS) of right breast; Pre-op testing; Migraine without status migrainosus, not intractable, unspecified migraine type 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] Start: 06-15-2024 End: 06-15-2024 ambulatory [facility] Facility:[facility] Start: 06-09-2024 End: 06-09-2024 Orders Only Jaimee Randall MD Work Phone: Hematology/Oncology Start: 06-07-2024 End: 06-07-2024 Telephone encounter Lakisha Leal PA-C Work Phone: [facility] Start: 06-03-2024 End: 06-03-2024 Chart abstracting Isiah Messina MD Work Phone: Plastic Surgery Comment on above: PHOTOS TAKEN Start: 06-03-2024 End: 06-12-2024 Office outpatient new 45 minutes Isiah Messina MD Work Phone: Plastic Surgery Comment on above: Ductal carcinoma in situ (DCIS) of right breast (Primary Dx); Encounter to discuss breast reconstruction Start: 06-03-2024 End: 06-03-2024 ambulatory ISIAH MESSINA Facility:[facility] Start: 06-01-2024 End: 06-01-2024 Patient encounter status Pradeep Taylor MD Work Phone: [facility] Start: 06-01-2024 End: 06-08-2024 Orders Only Pradeep Taylor MD Work Phone: Hematology/Oncology Comment on above: 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); Pre-op testing Start: 05-31-2024 End: 05-31-2024 Patient encounter status Pradeep Taylor MD Work Phone: [facility] Start: 05-31-2024 End: 05-31-2024 Orders Only Pradeep Taylor MD Work Phone: Hematology/Oncology Comment on above: Ductal carcinoma in situ (DCIS) of right breast (Primary Dx); Pre-op testing Nipple discharge (Pr imary Dx); Ductal carcinoma in situ (DCIS) of right breast; Atypical ductal hyperplasia of right breast Pre-Op Teaching Start: 05-28-2024 End: 05-28-2024 ambulatory Pradeep Taylor MD Work Phone: [facility] Comment on above: GENETIC TESTING Start: 05-28-2024 End: 05-28-2024 E-mail encounter from caregiver Pradeep Taylor MD Work Phone: [facility] Start: 05-28-2024 End: 05-28-2024 Telephone encounter Drea Boucher RN Mammography Comment on above: Results; Appointment Start: 05-27-2024 ambulatory [facility] Fac ility:[facility] Start: 05-27-2024 End: 05-27-2024 Subsequent hospital visit by physician Mri Main A10 (Large Bore/1.5t) Work Phone: MRI A10 Comment on above: Abnormal finding on radiology exam [R93.89] Start: 05-24-2024 End: 05-24-2024 Telephone encounter Ewa Rouse RN Work Phone: Mammography Comment on above: Results Start: 05-20-2024 [facility] ility:[facility] Start: 05-20-2024 End: 05-20-2024 Subsequent hospital visit by physician Procedure Mammo [place] Work Phone: [facility] Radiology Mammography Comment on above: Abnormal finding on radiology exam [R93.89] Start: 05-11-2024 End: 07-12-2024 Follow-up encounter Lissette Mcleod APRN.CNP Work Phone: [facility] Start: 05-10-2024 End: 05-10-2024 ambulatory LISSETTE MCLEOD Facility:[facility] Start: 05-10-2024 End: 05-10-2024 Telephone encounter Lissette Mcleod APRN.CNP Work Phone: [facility] Start: 05-10-2024 End: 05-10-2024 Patient encounter procedure Lissette Mcleod APRN.CNP Work Phone: [facility] Comment on above: Breast pain (Primary Dx); Bilateral fibrocystic breast changes; Nipple discharge; Abnormal MRI, breast Start: 05-10-2024 End: 05-10-2024 Subsequent hospital visit by physician [facility] Mammo Main Mammography Comment on above: Breast pain [N64.4] Start: 05-10-2024 End: 05-10-2024 ambulatory LISSETTE MCLEOD Facility:[facility] Start: 05-05-2024 End: 05-05-2024 ambulatory Jesse Ruiz MD Work Phone: Mammography Comment on above: Radio Imaging Study Comments Start: 05-05-2024 End: 05-05-2024 Patient encounter procedure Jesse Ruiz MD Work Phone: Mammography Start: 05-03-2024 End: 05-03-2024 ambulatory [facility] Facility:[facility] Start: 04-30-2024 End: 04-30-2024 Telephone encounter Drea Boucher RN Mammography Comment on above: Patient Update Start: 04-28-2024 End: 04-30-2024 Telephone encounter Ewa Rouse RN Work Phone: Mammography Comment on above: Outside Recommended Biopsy Review Start: 04-21-2024 End: 04-21-2024 Telephone encounter No One (Historical) Referring Physician Start: 04-19-2024 End: 04-19-2024 Emergency department patient visit Sukhjinder [place] Facility:[facility] Start: 04-16-2024 End: 04-16-2024 ambulatory Alex CERVANTES Facility:[facility] Start: 04-13-2024 End: 04-13-2024 ambulatory Marina Guzman Facility:[facility] Start: 03-31-2024 End: 03-31-2024 ambulatory Glory Armstrong MD Work Phone: Endocrinology Comment on above: Hypothyroidism, acqu ired Start: 03-31-2024 End: 03-31-2024 Telemedicine consultation with patient Glory Armstrong MD Work Phone: Endocrinology Start: 03-08-2024 End: 03-08-2024 ambulatory Kimberly CERVANTES Facility:[facility] Start: 01-30-2024 End: 02-02-2024 ambulatory Glory Armstrong MD Work Phone: Endocrinology Comment on above: Bloodwork? Start: 01-07-2024 End: 01-07-2024 Subsequent hospital visit by physician [facility] Work Phone: Radiology Comment on above: Viral URI [J06.9] Start: 01-07-2024 End: 01-07-2024 ambulatory [facility] Facility:[facility] Start: 01-07-2024 End: 01-07-2024 Patient encounter procedure Mateo Sánchez PA-C Work Phone: [facility] Comment on above: Sore throat (Primary Dx); Viral URI Start: 12-28-2023 End: 12-30-2023 Refill Crissy Don MD Work Phone: Neurology Comment on above: Refill Request Start: 12-16-2023 End: 12-16-2023 ambulatory CRISSY DON Facility:[facility] Start: 12-16-2023 End: 12-16-2023 Subsequent hospital visit by physician [facility] ([facility]) Work Phone: Cat Scan Comment on above: 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 and with status migrainosus [G43.011] Start: 12-12-2023 End: 12-12-20[facility] Start: 11-28-2023 End: 11-28-2023 ambulatory CRISSY DON Facility:[facility] Start: 11-28-2023 End: 11-28-2023 Office outpatient visit 25 minutes Crissy Don MD Work Phone: Neurology Comment on above: 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 and with status migrainosus (Primary Dx) Start: 11-26-2023 End: 11-26-2023 ambulatory Chery Xiong Facility:[facility] Start: 11-25-2023 End: 11-26-2023 Refill Crissy Don MD Work Phone: Neurology Comment on above: Refill Request Start: 11-21-2023 End: 11-21-2023 Refill Crissy Don MD Work Phone: Neurology Comment on above: Refill Request Start: 2023 End: 2023 Refill Crissy Don MD Work Phone: Neurology Comment on above: Refill Request Start: 10-13-2023 End: 10-13-2023 Patient encounter procedure Elly Cuellar MD Work Phone: Neurology Comment on above: Bilateral occipital neuralgia (Primary Dx) Start: 10-13-2023 End: 10-13-2023 ambulatory [facility] Facility:[facility] Start: 10-09-2023 Refill Glory Armstrong MD Work Phone: Endocrinology Comment on above: Refill Request Start: 09-16-2023 End: 09-16-2023 Patient encounter procedure Elly Cuellar MD Work Phone: Neurology Comment on above: APPOINTMENT CANCELLE D (Primary Dx) Start: 09-16-2023 ambulatory [facility] Fac ility:[facility] Start: 08-28-2023 ambulatory Glory Armstrong MD Work Phone: Endocrinology Comment on above: Thyroid test results Start: 08-27-2023 Telephone encounter Crissy johns MD Work Phone: Neurology Comment on above: Appointment (Appoint ment Cancelled: 08/29/2023) Start: 08-18-2023 End: 08-18-2023 ambulatory [facility] Facility:[facility] Start: 08-18-2023 End: 08-18-2023 Patient encounter procedure Glory Armstrong MD Work Phone: Endocrinology Comment on above: Hypothyroidism, acqu ired (Primary Dx) Start: 08-08-2023 End: 08-08-2023 ambulatory Elly Cuellar MD Work Phone: Neurology Comment on above: Occipital pain (Prim natalia Dx) Start: 08-08-2023 End: 08-08-2023 Telemedicine consultation with patient Elly Cuellar MD Work Phone: Neurology Start: 08-05-2023 Telephone encounter Isabela appiah APRN.CNP Work Phone: [facility] [place] Comment on above: Initial Consult (Subha matology referral) Start: 08-04-2023 Telephone encounter Crissy johns MD Work Phone: Neurology Comment on above: Patient Question Start: 08-01-2023 End: 08-01-2023 ambulatory MAKAYLA JACOBS Facility:[facility] Start: 08-01-2023 End: 08-01-2023 Patient encounter procedure Makayla Jacobs PAOg Work Phone: Neurology Comment on above: 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 and without status migrainosus (Primary Dx); Paresthesia of skin Start: 07-30-2023 ambulatory ISABELA OLIVERA Fac ility:[facility] Start: 07-24-2023 End: 07-24-2023 Subsequent hospital visit by physician Xr [facility] Leeanne Kim Work Phone: Radiology Comment on above: Cervicalgia [M54.2] Start: 07-22-2023 End: 07-22-2023 ambulatory ISABELA OLIVERA Facility:[facility] Start: 07-22-2023 End: 07-22-2023 Patient encounter procedure Isabela Olivera EPIC ANALYST.CASE AIDE Work Phone: [facility] [place] Comment on above: [facility] ([facility] Dx); Paresthesia; Scalp pain; Myalgias; Cervicalgia; Polycystic ovarian disease; Hypothyroidism, acquired; Chronic fatigue; Thyroid nodule Start: 06-04-2023 Refill Crissy Don MD Work Phone: Pain Management Comment on above: Refill Request Start: 05-26-2023 Refill Crissy Don MD Work Phone: Neurology Comment on above: Refill Request Start: 05-15-2023 End: 05-15-2023 Office outpatient new 60 minutes Crissy Don MD Work Phone: Neurology Comment on above: Migraine with aura a nd with status migrainosus, not intractable (Primary Dx) Start: 04-10-2023 End: 04-10-2023 ambulatory [facility] Start: 01-07-2023 End: 01-07-2023 ambulatory [facility] Start: 12-17-2022 End: 12-17-2022 ambulatory [facility] Start: 08-23-2022 End: 08-23-2022 ambulatory PA-C [place] Work Phone: [facility] Work Phone: Start: 08-23-2022 End: 08-23-2022 Patient encounter procedure PA-C [place] PA Work Phone: [facility]atory, Specimen Work Phone: Start: 08-23-2022 End: 08-23-2022 Patient encounter procedure PA-C [place] PA Work Phone: [facility] Work Phone: Start: 05-13-2022 End: 05-13-2022 ambulatory [facility] Procedures Date Procedure Procedure Detail Performing Clinician Start: 06-15-2024 Inj radioactive trac er for id of sentinel node Pradeep Taylor MD Work Phone: Start: 05-27-2024 Digital breast tomosynthesis unilateral Radha Kamara MD Work Phone: Start: 05-27-2024 End: 05-27-2024 Bx breast w/device 1st lesion magnetic res guid Radha Kamara MD Work Phone: Start: 05-20-2024 Digital breast tomosynthesis unilateral Radha Kamara MD Work Phone: Start: 05-20-2024 Bx breast w/device 1 st lesion ultrasound guid Radha Kamara MD Work Phone: Start: 05-10-2024 End: 05-10-2024 Us breast uni real time with image limited Lissette Mcleod APRN.CASE AIDE Work Phone: Start: 05-10-2024 Digital breast tomosynthesis bilateral Lissette Mcleod APRN.CASE AIDE Work Phone: Start: 01-07-2024 Radiologic exam ches t 2 views Mateo Sánchez PA-C Work Phone: Start: 01-07-2024 STREP A MOLECULAR (POC) Mateo CERVANTES-C Work Phone: Start: 12-16-2023 Ct head/brain w/o co ntrast material Crissy Don MD Work Phone: Start: 09-10-2016 End: 09-10-2016 DJN Sukhjinder Maurice MD Work Phone: Start: 09-10-2016 End: 09-10-2016 Follow Up Appt 2 months Sukhjinder Maurice MD Work Phone: Start: 07-03-2015 Lipid 1996 panel - S wendy or Plasma Crissy Don MD Work Phone: Start: 07-03-2015 End: 07-17-2015 *CMP Complete Metabolic Panel Kimberly CERVANTES[facility] Work Phone: Start: 07-03-2015 End: 07-17-2015 HbA1c Kimberly CERVANTES[facility] Work Phone: Start: 07-03-2015 End: 07-17-2015 Lipid panel [AGGREGATE] Kimberly Valle [place] HELEN[facility] Work Phone: Start: 02-04-2014 Lipid 1996 panel - S wendy or Plasma Procedure [place] Work Phone: Plan of Treatment Date Care Activity Detail Author Start: 06-01-2027 Diabetes Screening Diabetes Screenin g [facility] Start: 07-23-2026 Diabetes Screening Diabetes Screenin g [facility] Start: 04-08-2026 Urine microalbumin profile DTaP,Tdap,Td Vaccine (6 - Td or Tdap) [facility] Start: 05-10-2025 Screening for malign ant neoplasm of breast Mammogram Screening [facility] Start: 10-25-2024 Influenza vaccination Influenz a Vaccine (Season Ended) [facility] Start: 10-11-2024 End: 10-11-2024 Follow-up encounter 10/11/2024 1:00 PM EDT Visit (SP) Office Hematology/Oncology [address] [place] [address] Jaimee Randall MD [address] [place] [address] FOLLOW UP Hematology/Oncology Comment on above: FOLLOW UP Start: 10-11-2024 End: 10-11-2024 ambulatory [facility] [place] 1 Kristin ben Sherita Comment on above: LABS LPRN INJ Start: 09-24-2024 End: 09-24-2024 Patient encounter procedure 09/24/2024 11:30 AM EDT Office Visit Breast [place] [address] [place] [address] Pradeep Taylor MD [address] [place] [address] [id number] post op Breast Center Comment on above: 168-cq post op Start: 08-19-2024 End: 08-19-2024 Patient encounter procedure 08/19/2024 2:45 PM EDT Office Visit Plastic Surgery [address] [address] Isiah Messina MD [address] [place] [address] 3 week follow up Plastic Surgery Comment on above: 3 week follow up Start: 08-16-2024 End: 08-16-2024 ambulatory 08/16/2024 10:00 AM EDT OT/PT/Speech Visit [facility] Occupational Therapy [address] [place] [address] Kimberly Hidalgo OTR/L [address] [place] [address] Therapy [facility] Occupational Therapy Comment on above: Therapy Start: 08-12-2024 End: 08-12-2024 Patient encounter procedure 08/12/2024 10:00 AM EDT Office Visit Gynecology [address] [address] Ana Blanca MD [address] [place] [address] CONSULT TO GYNECOLOGY Gynecology Comment on above: CONSULT TO GYNECOLOG Y Start: 07-29-2024 End: 07-29-2024 Patient encounter procedure 07/29/2024 4:30 PM EDT Office Visit Plastic Surgery [address] [address] Olga Nieves PA-C [address] [place] [address] [address] post op follow up Plastic Surgery Comment on above: post op follow up Start: 07-21-2024 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 [employer]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 greg Disease Visit 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 Chronic Disease Visit [facility] Start: 07-15-2024 End: 07-15-2024 Patient encounter procedure 07/15/2024 4:00 PM EDT Office Visit Plastic Surgery [address] [address] Olga Nieves PA-C [address] [address] POST OP Plastic Surgery Comment on above: POST OP Start: 07-14-2024 End: 07-14-2024 Patient encounter procedure 07/14/2024 9:00 AM EDT Office Visit Breast Center [address] [place] [address] Kary Rizzo APRN.CASE AIDE [address] [place] [address] post op Breast Center Comment on above: post op Start: 07-06-2024 End: 07-06-2024 Admission to same day surgery center 07/06/2024 7:30 AM EDT - 07/06/2024 9:15 AM EDT Surgery Admitting [address] [place] [address] Praedep Taylor MD [address] [place] [address] excision of positive margin Admitting Comment on above: excision of positive margin Start: 07-06-2024 End: 07-06-2024 Mastectomy partial MASTECTOMY PARTIAL 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 ductal carcinoma of right breast (HCC) 07/06/2024 7:30 AM EDT JNOATHAN CASTILLO Start: 07-06-2024 Subsequent hospital visit by physician 07/06/2024 7:30 AM EDT Hospital Encounter Admitting [address] [place] [address] Pradeep Taylor MD [address] [place] [address] 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], Invasive ductal carcinoma of right breast (HCC) [C50.911] Admitting Comment on above: 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], Invasive ductal carcinoma of right breast (HCC) [C50.911] Start: 07-05-2024 End: 07-05-2024 ambulatory 07/05/2024 3:00 PM EDT [facility] Hematology/Oncology [address] [place] [address] Jaimee Randall MD [address] [place] [address] VIRTUAL Hematology/Oncology Comment on above: VIRTUAL Start: 07-01-2024 End: 07-01-2024 Patient encounter procedure 07/01/2024 4:00 PM EDT Office Visit Plastic Surgery [address] [address] Olga Nieves PA-C [address] [address] 1 week follow up Plastic Surgery Comment on above: 1 week follow up Start: 06-30-2024 End: 06-30-2024 ambulatory 06/30/2024 10:00 AM EDT [facility] Endocrinology [address] [place], [place] [id number] Glory Armstrong MD [address] [place] [address] 3 month f/u-Thyroid levels Endocrinology Comment on above: 3 month f/u-Thyroid levels Start: 06-24-2024 End: 06-24-2024 Patient encounter procedure 06/24/2024 1:40 PM EDT Office Visit Plastic Surgery [address] [address] Olga Nieves PA-C [address] [address] Post op Plastic Surgery Comment on above: Post op Start: 06-23-2024 End: 06-23-2024 Patient encounter procedure Breast Center Comment on above: post op New patient consult Start: 06-18-2024 End: 06-18-2024 Patient encounter procedure 06/18/2024 8:30 AM EDT Office Visit Psychology [address] [place] [address] Cristal Cohn, PhD [address] [place] [address] Personal history of breast cancer [Z85.3] Psychology Comment on above: Personal history of breast cancer [Z85.3] Start: 06-16-2024 End: 06-16-2024 Admission to same day surgery center Admitting Comment on above: MASTECTOMY SIMPLE BI LATERAL Start: 06-16-2024 End: 06-16-2024 Brst rcnstj immt/dlyd w/tiss bundler seasonal greenery sbsq xpnsj [facility] Start: 06-16-2024 End: 06-16-2024 Bx/exc lymph node open deep axillary node [facility] Start: 06-16-2024 End: 06-16-2024 Implnt bio implnt for soft tissue reinforcement [facility] Start: 06-16-2024 End: 06-16-2024 Intraop sentinel lymph node id w/dye injection [facility] Start: 06-16-2024 End: 06-16-2024 Mastectomy simple complete [facility] Start: 06-16-2024 Subsequent hospital visit by physician Admitting Comment on above: 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] Start: 06-15-2024 End: 06-15-2024 Anesthesia consultation 06/15/2024 10:50 AM EDT PAT Pre Anesthesia [address] [address] 3, [address] [place] [address] perop Pre Anesthesia Comment on above: perop Start: 06-15-2024 End: 06-15-2024 Patient encounter procedure Cardiology Comment on above: ekg sx 423 NM INJ SENTINEL NODE BREAST RIGHT *RIGHT SIDE_NEXT DAY SURGERY -NM INJ SENTINEL NODE BREAST RIGHT Start: 06-11-2024 End: 06-11-2024 Patient encounter procedure 06/11/2024 10:20 AM EDT Office Visit [facility] [address] [place], [place] [id number] Isabela Olivera APRN.CASE AIDE [address] [place], [place] [id number] Appointment Request From: Yolande Gomes [facility] Comment on above: Appointment Request From: Yolande Gomes Start: 06-03-2024 End: 06-03-2024 Patient encounter procedure 06/03/2024 10:30 AM EDT Office Visit Plastic Surgery [address] [address] Isiah Messina MD [address] [place], [place] [id number] Consult Plastic Surgery Comment on above: Consult Start: 06-01-2024 End: 06-01-2024 Patient encounter procedure 06/01/2024 1:00 PM EDT [facility] Hematology/Oncology [id number] [place] [address] Jaimee Randall MD [address] [place], [place] [phone] virtual consult ok per Dr. Randall Hematology/Oncology Comment on above: virtual consult ok p er Dr. Randall Start: 05-31-2024 End: 08-30-2024 NVTA INVITAE HEREDITARY DIAGNOSTIC CANCER PANEL [facility] Work Phone: Comment on above: Expected: 05/31/2024 , Expires: 08/30/2024 Start: 05-31-2024 End: 05-31-2024 Patient encounter procedure 05/31/2024 8:30 AM EDT Office Visit [facility] [address] [place] [address] Pradeep Taylor MD [address] [place] [address] [facility] Comment on above: New breast cancer Start: 05-28-2024 End: 05-28-2024 Patient encounter procedure 05/28/2024 9:20 AM EDT Office Visit [facility] [address] [place], [place] [phone] Isabela Olivera, MARIXA.CASE AIDE [address] [place] [address] Appointment Request From: Yolande Gomes [facility] Comment on above: Appointment Request From: Yolande Gomes Start: 05-27-2024 End: 05-27-2024 Patient encounter procedure 05/27/2024 12:00 PM EDT Appointment MRI A10 [address] [address] on 05/27 at 12 pm at main per email MRI A10 Comment on above: on 05/27 at 12 pm at ain per email Start: 05-20-2024 End: 05-20-2024 Patient encounter procedure 05/20/2024 8:00 AM EDT Appointment [facility] [address] [facility] [address] RIGHT BREAST ULTRASOUND GUIDED CORE BIOPSY [facility] Radiology Mammography Comment on above: RIGHT BREAST ULTRASO UND GUIDED CORE BIOPSY Start: 05-17-2024 End: 05-17-2024 Patient encounter procedure 05/17/2024 10:20 AM EDT Office Visit [facility] [address] [place] [address] Isabela Olivera APRN.CASE AIDE [address] [place] [address] Appointment Request From: Yolande Gomes [facility] Comment on above: Appointment Request From: Yolande Gomes Start: 05-10-2024 End: 08-09-2024 Prolactin [Mass/volume] in Serum or Plasma [facility] Work Phone: Comment on above: Expected: 05/10/2024 , Expires: 08/09/2024 Start: 05-03-2024 End: 05-03-2024 ambulatory 05/03/2024 8:30 AM EDT Results Only Leeanne Tafoya [facility] [address] [place] [address] Leeanne Tafoya [facility] Start: 03-31-2024 End: 03-31-2024 ambulatory 03/31/2024 9:40 AM EST [facility] Endocrinology [address] [place] [address] Glory Armstrong MD [address] [place] [address] Thyroid levels Endocrinology Comment on above: Thyroid levels Start: 02-06-2024 End: 02-06-2024 Patient encounter procedure 02/06/2024 4:20 PM EST Office Visit Endocrinology [address] [place] [address] Glory Armstrong MD [address] [place] [address] 3 month follow up Endocrinology Comment on above: 3 month follow up Start: 02-02-2024 End: 05-03-2024 Thyrotropin [Units/volume] in Serum or Plasma THYROID STIMULATING HORMONE Lab Routine Hypothyroidism, acquired Expected: 02/02/2024, Expires: 05/03/2024 [facility] Work Phone: Comment on above: Expected: 02/02/2024 , Expires: 05/03/2024 Start: 02-02-2024 End: 05-03-2024 Thyroxine (T4) free [Mass/volume] in Serum or Plasma T4 FREE/FREE THYROXINE Lab Routine Hypothyroidism, acquired Expected: 02/02/2024, Expires: 05/03/2024 [facility] Comment on above: Expected: 02/02/2024 , Expires: 05/03/2024 Start: 11-28-2023 End: 11-28-2023 ambulatory 11/28/2023 10:00 AM EDT [facility] Neurology [address] [id number] Crissy Don MD [address] [place], [place] [phone] Migraines and scalp pain Neurology Comment on above: Migraines and scalp pain Start: 11-17-2023 End: 11-17-2023 Patient encounter procedure 11/17/2023 9:20 AM EDT Office Visit Endocrinology [address] [place], [place] [phone] Glory Armstrong MD [address] [place] [id number] 3 month follow up Endocrinology Comment on above: 3 month follow up Start: 11-14-2023 Lipid panel Lipid Screening [facility] Start: 11-14-2023 Screening for malign ant neoplasm of colon [facility] Start: 10-29-2023 End: 01-28-2024 Thyrotropin [Units/volume] in Serum or Plasma THYROID STIMULATING HORMONE Lab Routine Hypothyroidism, acquired Expected: 10/29/2023, Expires: 01/28/2024 [facility] Work Phone: Comment on above: Expected: 10/29/2023 , Expires: 01/28/2024 Start: 10-29-2023 End: 01-28-2024 Thyroxine (T4) free [Mass/volume] in Serum or Plasma T4 FREE/FREE THYROXINE Lab Routine Hypothyroidism, acquired Expected: 10/29/2023, Expires: 01/28/2024 [facility] Comment on above: Expected: 10/29/2023 , Expires: 01/28/2024 Start: 10-26-2023 Covid-19 Vaccine () Covid-19 Vaccine () [facility] Start: 10-26-2023 Covid-19 Vaccine () Covid-19 Vaccine () [facility] Start: 10-26-2023 Influenza vaccination [facility] Start: 10-13-2023 End: 10-13-2023 Patient encounter procedure 10/13/2023 1:30 PM EDT Office Visit Neurology [address] [place] [address] [place] [address] [address] [place] [address] Occipital Nerve block Neurology Comment on above: Occipital Nerve bloc k Start: 09-16-2023 End: 09-16-2023 Patient encounter procedure 09/16/2023 4:00 PM EDT Office Visit Neurology [address] [place] [address] [place] [address] [address] [place] [address] Nerve block Neurology Comment on above: Nerve block Start: 08-29-2023 End: 08-29-2023 Follow-up encounter 08/29/2023 10:30 AM EDT [facility] [address] [id number] Crissy Don MD [address] [place] [address] 2 month follow up- rescheduled from 08/08/2023 Neurology Comment on above: 2 month follow up- r escheduled from 08/08/2023 Start: 08-18-2023 End: 08-18-2023 Patient encounter procedure 08/18/2023 8:40 AM EDT Office Visit Endocrinology [address] [place], [place] [address] Glory Armstrong MD [address] [facility] [address] [place], [place] [phone] Thyroid Disease Endocrinology Comment on above: Thyroid Disease Start: 08-08-2023 End: 08-08-2023 ambulatory 08/08/2023 2:00 PM EDT [facility] [address] [place] [address] [place] [address] [address] [place] [address] HEADACHE / MIGRAINES Neurology Comment on above: HEADACHE / MIGRAINES Start: 08-08-2023 End: 08-08-2023 Follow-up encounter 08/08/2023 11:00 AM EDT [facility] [address] [id number] Crissy Don MD [address] [place] [address] 2 month follow up Neurology Comment on above: 2 month follow up Start: 07-22-2023 End: 10-21-2023 25-hydroxyvitamin D3 [Mass/volume] in Serum or Plasma VITAMIN D 25 HYDROXY Lab Routine Hypothyroidism, acquired Chronic fatigue Expected: 07/22/2023, Expires: 10/21/2023 [facility] Comment on above: Expected: 07/22/2023 , Expires: 10/21/2023 Start: 07-22-2023 End: 07-21-2024 ALETHA BY IFA SCREEN ALETHA BY IFA SCREEN Lab Routine Myalgias Paresthesia Expected: 07/22/2023, Expires: 07/21/2024 [facility] Comment on above: Expected: 07/22/2023 , Expires: 07/21/2024 Start: 07-22-2023 End: 10-21-2023 C reactive protein [Mass/volume] in Serum or Plasma C-REACTIVE PROTEIN Lab Routine Myalgias Expected: 07/22/2023, Expires: 10/21/2023 [facility] Comment on above: Expected: 07/22/2023 , Expires: 10/21/2023 Start: 07-22-2023 End: 10-21-2023 CBC W Auto Differential panel - Blood COMPLETE BLOOD COUNT AND DIFFERENTIAL Lab Routine Myalgias Paresthesia Expected: 07/22/2023, Expires: 10/21/2023 [facility] Work Phone: Comment on above: Expected: 07/22/2023 , Expires: 10/21/2023 Start: 07-22-2023 End: 10-21-2023 Cobalamin (Vitamin B12) [Mass/volume] in Serum or Plasma VITAMIN B12 Lab Routine Paresthesia Expected: 07/22/2023, Expires: 10/21/2023 [facility] Comment on above: Expected: 07/22/2023 , Expires: 10/21/2023 Start: 07-22-2023 End: 10-21-2023 Comprehensive metabolic 2000 panel - Serum or Plasma COMPREHENSIVE METABOLIC PANEL Lab Routine Myalgias Hypothyroidism, acquired Expected: 07/22/2023, Expires: 10/21/2023 [facility] Comment on above: Expected: 07/22/2023 , Expires: 10/21/2023 Start: 05-15-2023 End: 08-14-2023 Thyrotropin [Units/volume] in Serum or Plasma TSH BLD Lab Routine Expected: 05/15/2023, Expires: 08/14/2023 [facility] Work Phone: Comment on above: Expected: 05/15/2023 , Expires: 08/14/2023 Start: 02-24-2023 Behavioral Health Screening Behavioral Health Screening [facility] Start: 02-24-2023 Depression Assessment Depression Ass essment [facility] Start: 10-25-2022 Covid-19 Vaccine () Covid-19 Vaccine () [facility] Start: 10-25-2022 Influenza vaccination Influenza Vacc ine (#1) [facility] Start: 08-23-2022 Liquid based cervica l cytology screening [facility] Start: 08-02-2020 Hepatitis B Vaccine (2 of 3 - 19+ 3-dose series) Hepatitis B Vaccine (2 of 3 - 19+ 3-dose series) [facility] Start: 2018 Screening for malign ant neoplasm of breast Mammogram Screening [facility] Start: 11-25-2016 End: 11-25-2016 Appointment Appointment [facility] Work Phone: Start: 09-10-2016 End: 09-10-2016 Appointment Appointment [facility] Work Phone: Start: 09-10-2016 End: 09-10-2016 Complete sleep workup (PSG,CPAP as indicated) & Follow up Complete sleep workup (PSG,CPAP as indicated) & Follow up [facility] Work Phone: Start: 09-10-2016 End: 09-10-2016 DJN DJN [facility] Work Phone: Start: 09-10-2016 End: 09-10-2016 Follow Up Appt 2 months Follow Up Appt 2 months [facility] [employer] [facility] Work Phone: Start: 09-10-2016 End: 09-10-2016 Remote 30 day ecg rev/report 30 Day Holter Monitor [facility] Work Phone: Start: 07-03-2015 End: 07-17-2015 *CMP Complete Metabolic Panel *CMP Complete Metabolic Panel [facility] [employer] [facility] Work Phone: Start: 07-03-2015 End: 07-17-2015 HbA1c *HgA1C [facility] [employer] [facility] Work Phone: Start: 07-03-2015 End: 07-17-2015 Lipid panel [AGGREGATE] *Lipid Profile [facility] [employer] [facility] Work Phone: Start: 04-28-2012 Screening for malign ant neoplasm of cervix Pap Testing [facility] Start: 04-28-2010 Screening for malign ant neoplasm of cervix Cervical Cancer Screening [facility] Start: 09-20-2009 Screening for malign ant neoplasm of cervix HPV Testing [facility] Start: 1996 Anxiety Screening Anxiety Screening [facility] Start: 1996 Depression Screening Depression Scre ening [facility] Start: 1996 Hepatitis C screening Hepatitis C Sc josue [facility] Start: 1996 HIV screening HIV Screening [facility] rcnstj immt/dly d w/tiss bundler seasonal greenery sbsq xpnsj BREAST RECONSTRUC W TISS EXPANDR Procedures Routine Ductal carcinoma in situ (DCIS) of right breast Ordered: 06/01/2024 [facility] Comment on above: Ordered: 06/01/2024 Bx/exc lymph node op en deep axillary node BX/REMV,LYMPH NODE,DEEP AXILL Procedures Routine Ductal carcinoma in situ (DCIS) of right breast Ordered: 06/01/2024 [facility] Comment on above: Ordered: 06/01/2024 End: 12-27-2024 CT Head WO contrast CT BRAIN WO IVCON Radiology Routine 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 and with status migrainosus 1 Occurrences starting 11/28/2023 until 12/27/2024 [facility] Work Phone: Comment on above: 1 Occurrences starti ng 11/28/2023 until 12/27/2024 End: 06-01-2025 ECG COMPLETE ECG COMPLETE ECG Routine Ductal carcinoma in situ (DCIS) of right breast Pre-op testing 1 Occurrences starting 06/01/2024 until 06/01/2025 [facility] Work Phone: Comment on above: 1 Occurrences starti ng 06/01/2024 until 06/01/2025 Inj radioactive trac er for id of sentinel node IDENTIFY SENTINEL NODE Procedures Routine Ductal carcinoma in situ (DCIS) of right breast Ordered: 06/01/2024 [facility] Comment on above: Ordered: 06/01/2024 Mastectomy simple complete MASTECTOMY, SIMPLE, COMPLETE Procedures Routine Ductal carcinoma in situ (DCIS) of right breast Ordered: 06/01/2024 [facility] Comment on above: Ordered: 06/01/2024 MG Breast - bilatera l Screening [facility] End: 06-04-2025 MG Breast - right Diagnostic for implant МАРИЯ DIAGNOSTIC RIGHT Radiology Routine Abnormal finding on radiological examination of breast 1 Occurrences starting 05/05/2024 until 06/04/2025 [facility] Work Phone: Comment on above: 1 Occurrences starti ng 05/05/2024 until 06/04/2025 End: 07-01-2025 NM Lymph node Views NM INJ SENTINEL NODE BREAST RIGHT Radiology Routine Ductal carcinoma in situ (DCIS) of right breast Pre-op testing 1 Occurrences starting 06/01/2024 until 07/01/2025 [facility] Comment on above: 1 Occurrences starti ng 06/01/2024 until 07/01/2025 Path report.final Dx Spec [facility] Tissue Pathology bio psy report [facility] Work Phone: Comment on above: Release Upon Orderin g for 1 Occurrences starting 05/20/2024, 1 completed Tissue Pathology bio psy report [facility] Work Phone: Comment on above: Release Upon Orderin g for 1 Occurrences starting 05/27/2024, 1 completed End: 06-04-2025 US Breast - right limited US BREAST LTD RIGHT Radiology Routine Abnormal finding on radiological examination of breast 1 Occurrences starting 05/05/2024 until 06/04/2025 [facility] Comment on above: 1 Occurrences starti ng 05/05/2024 until 06/04/2025 End: 08-20-2024 XR Cervical spine 2 or 3 views and (Views W flexion and W extension) XR CERVICAL 2V FLEX/EXT Radiology Routine Cervicalgia 1 Occurrences starting 07/22/2023 until 08/20/2024 [facility] Comment on above: 1 Occurrences starti ng 07/22/2023 until 08/20/2024 XR Cervical spine 2 or 3 views and (Views W flexion and W extension) XR CERVICAL 2V FLEX/EXT Radiology Routine Cervicalgia 07/24/2023 11:40 AM EDT [facility] Work Phone: [facility] Immunizations Immunization Date Immunization Notes Care Provider Meredith ribera 02-04-2022 influenza virus vaccine, unspecified formulation Crissy Don MD Work Phone: [facility] 01-09-2021 influenza, seasonal, injectable AVELINO CERVANTES Work Phone: [facility] 12-29-2020 Covid (Pfizer) PA-C Kimberly Kumari PA Work Phone: [facility] 07-05-2020 hepatitis B vaccine, adult dosage PA-C Kimberly Kumari PA Work Phone: [facility] 06-21-2020 Covid (Pfizer) PA-C [place] PA Work Phone: [facility] 05-31-2020 Covid (Pfizer) PA-C [place] PA Work Phone: [facility] 01-26-2020 hepatitis B vaccine, adult dosage PA-C [place] PA Work Phone: [facility] 12-06-2019 hepatitis B vaccine, adult dosage PA-C [place] PA Work Phone: [facility] 12-02-2019 influenza, seasonal, injectable PA-C [place] PA Work Phone: [facility] Payers Date Payer Category Payer Private Health Insurance [id number] 2024 Private Health Insurance [id number] 2023 Self-pay [id number] 2023 Unknown MMO MMO SUPER[employer] PPO [id number] 2023-Present [phone] [address] [place] [address] PPO [id number] 2023 Unknown [id number] 2016 Unknown ANTHEM EXCHANGE PLAN [id number] 2016 Unknown ANTHEM [id number] 1978 Unknown [id number] 1978 Unknown [id number] 651 1978 Unknown [id number] 651 1978 Unknown [id number] 651 Unknown COMMERCIAL OTHER [id number] Unknown [id number] 462 Unknown [id number] 462 Unknown [id number]. 462 Unknown [id number]. 462 Unknown [id number]. 462 Unknown [id number] 462 Unknown [id number] 462 Unknown [id number] 462 Social History Date Type Detail Facility Start: [facility]22 [facility] Start: 1980 Sex Assigned At Female [facility] Start: 05-15-2023 End: 06-15-2024 Tobacco smoking status NHIS Never smoked tobacco [facility] Start: 05-15-2023 End: 06-15-2024 Tobacco use and exposure Former smokeless tobacco user [facility] End: 02-24-2009 History of tobacco use Chews Tobacco [facility] Start: 05-15-2023 End: 06-23-2024 Alcohol intake Current drinker of alcohol (finding) [facility] Start: 05-15-2023 End: 07-30-2023 History of Social function [facility] Start: 05-15-2023 End: 07-30-2023 Tobacco use panel [facility] National Score (1-100), lower number is lower risk Not on file [facility] Start: 05-15-2023 Tobacco Comment For 3 years [facility] Start: 1980 Sex Assigned At Not on file [facility] Start: 06-01-2024 Tobacco Comment For 3 years. Q uit in 2009 [facility] Start: 06-01-2024 Alcohol Comment monthly/social 2-3 drink mixed drink [facility] Medical Equipment Procedure Code Equipment Code Equipment Origin al Text Equipment Identifier Dates Ultrasound Breas t Clip [id number] Start: 05-20-2024 Comment on above: Description: Q clip Stoplight Clip [id number] Start: 05-27-2024 Buckle Clip [id number] Start: 05-27-[address] 500cc Mv - [id number] Start: 06-16-[address] 500cc Mv - [id number] Start: 06-16-2024 Cja-Ua-X-Kind Implant - [id number] Start: 06-16-2024 Sqi-Tz-U-Kind Implant - [id number] Start: 06-16-2024 Functional Status Date Assessment Result Facility 01-31-2014 Are you deaf, or do you have serious difficulty hearing No 01/31/2014 1:04 PM Alina Matthews No [facility] 01-31-2014 Are you blind, or do you have serious difficulty seeing, even when wearing glasses No 01/31/2014 1:04 PM Alina Matthews No [facility] 01-31-2014 Do you have serious difficulty walking or climbing stairs No 01/31/2014 1:04 PM Alina Matthews No [facility] 01-31-2014 Do you have difficul ty dressing or bathing No 01/31/2014 1:04 PM Alina Matthews No [facility] 01-31-2014 Because of a physica l, mental, or emotional condition, do you have difficulty doing errands alone such as visiting a physician's office or shopping No 01/31/2014 1:04 PM Alina Matthews [facility] Mental Status Date Assessment Result Facility 01-31-2014 Because of a physica l, mental, or emotional condition, do you have serious difficulty concentrating, remembering, or making decisions No 01/31/2014 1:04 PM Alina Matthews No [facility] Clinical Notes 05-15-2023 to 07-29-[address] - 07/29/2024 4:30 PM EDTPradeep Taylor MD - 06/30/2024 12:10 PM Nnamdi Pierce MD - 06/27/2024 10:[address] PA-C - 06/24/2024 1:40 PM EDTPatient Instructions Note Date & Type Note Facility 07-29-2024 Note HNO ID: [id number] Author: ANA CASTILLO ST Service: ? Author Type: Surg Apartment Maintenance Worker Type: Progress Notes Filed: 07/29/2024 16:31 Note Text: DATE OF PHOTOS: 07/29/2024 Body Part: Breasts ST SLAVA July 29, 2024 4:30 PM [facility] 07-29-2024 History of Present illness Narrative DATE OF PHOTOS: 07/29/2024 Body Part: Breasts ST SLAVA July 29, 2024 4:30 PM documented in this encounter [facility] 07-16-2024 Note HNO ID: [id number] Author: TIARRA SMALL LSW Service: ? Author Type: Hvac Project Manager Type: Progress Notes Filed: 07/16/2024 16:44 Note Text: SOCIAL WORK FOLLOW UP NOTE: [facility] Date of service:07/16/2024 Patient reported high levels of distress per Patient-Reported Outcome (PRO) scores. At the time of the appointment on 07/14/2024, the patient declined a social work (SW) encounter. However, the patient informed the care team that she is open to completing advance directives (ADs). A follow-up phone call was made to the patient. I introduced myself and explained the role of social work support for patients and families. The patient declined ongoing SW support at this time but expressed interest in meeting to complete ADs.The patient was encouraged to inform the care team or request that they page the medical social worker when ready to proceed with AD completion. BECKY Ratliff [facility] 07-14-2024 Note HNO ID: [id number] Author: KARY RIZZO APRN.CASE AIDE Service: ? Author Type: Nurse Practitioner Type: Progress Notes Filed: 07/14/2024 09:36 Note Text: [facility] Department of Breast Surgical Oncology [facility] POST OPERATIVE FOLLOW-UP SERVICE DATE: 07/14/24 SURGERY DATE: 07/06/24 POSTOPERATIVE VISIT #1 SUBJECTIVE: Yolande Gomes, 43 year old year old female presents today for her first post operative appointment status post right breast margin re-excision with Dr. Taylor. She originally underwent a right Breast Mastectomy, Right Axillary [place] lymph node biopsy, Left Breast prophylactic Mastectomy with Dr. Taylor in combination with Dr. Messina for bilateral tissue bundler seasonal greenery placement on 06/16/24 where final pathology revealed a positive margin. She is overall doing well postoperatively. Her pain has been well controlled. She was given oxycodone postoperatively and took a few pills. 0 refills were given. She will begin anastrozole and lupron injections. She is interested in undergoing a total abdominal hysterectomy and will consult with technical research scientist. She denies any erythema, discharge from the incision, or significant swelling. She denies fever, chills, night sweats, chest pain, shortness of breath, nausea, vomiting, diarrhea, constipation, or urinary changes. PATHOLOGY REPORT: SURGICAL PATHOLOGY: [id number] Order: [id number] Collected 07/06/2024 7:58 AM Component FINAL DIAGNOSIS Right breast, skin margin, excision - Skin and subcutaneous tissue with post-surgical site changes, (please see comment). -The final, inked margin is negative for carcinoma. PJM/pjm/07/08/24 at 1026 EDT The sensitive examination was discussed with the Patient or Patient's Authorized Water Service Supervisor. As applicable, any other physician, advance practice provider, medical student, or other health professional student that will be observing or involved in the sensitive examination for educational or training purposes was discussed with the Patient or Authorized Water Service Supervisor. The Patient or Authorized Water Service Supervisor has agreed to proceed with the sensitive examination. (Sensitive examination includes inspection and/or palpation of the breasts, pelvis, prostate and anorectal regions) OBJECTIVE: PHYSICAL EXAM: Bilateral breast incisions are healing well with intact overlying steri strips. Minor ecchymosis. No surrounding erythema or areas of fluctuance. Right breast is slightly larger with an increase in swelling. POST OPERATIVE STATUS: POST OPERATIVE STATUS OR RIGHT BREAST: Uncomplicated post-operative course, POST OPERATIVE STATUS OR LEFT BREAST: Uncomplicated post-operative course, Assessment ASSESSMENT: Yolande Gomes, 43 year old year old female who is status post right breast margin re-excision with Dr. Taylor. Her final pathology was negative for carcinoma. We reviewed these results in detail. She is overall doing well with no surgical site concerns. PLAN: Follow up with medical oncology 10/11 Follow up with plastic surgery 07/[address] Taylor 09/24 Contact the breast surgery office for any questions and/or concerns regarding the surgical incision/site. All questions were answered; patient has no further concerns and is in agreement with the plan. Kary Rizzo APRN-CASE AIDE, CRLINDAA Breast Surgical Oncology Call Physician If: Call your MD or seek immediate medical attention if you experience any of the following symptoms: 1. Fever of 101.5 (38.5 C) or greater 2. Pain not controlled with prescribed pain medications 3. Uncontrolled nausea and/or vomiting 4. Drainage or swelling around your incisions and/or surgical sites 5. Separation of incisions, or tearing of the incision line 6. Large fluid collection under or around the incision or flap sites 7. Skin discoloration (including darkened or pale appearance) 8. Difficulty breathing 9. Swelling, pain, heat and/or redness in your legs and/or calves 10. Inability to tolerate diet/fluid intake [facility] 07-14-2024 Note HNO ID: [id number] Author: SANDY BOYD LPN Service: ? Author Type: LICENSED NURSE Type: Progress Notes Filed: 07/14/2024 09:36 Note Text: Additional intake questions: Has the patient had fever, nausea, vomiting, diarrhea, constipation, fatigue for > 1 week? Yes, nausea and diarrhea ( 2 times in last 24 hours) Does the patient have a decreased appetite? No Does patient want to see a Chain Repairer? No (yes to any of above refer patient to schedulers for dietitian appointment) ) Does patient have any new or increased numbness or tingling of extremities? No Does patient need any prescription refills? No Does patient have an advanced directive in place? No, Patient referred to [facility] Social work contacted for the PHQ-9 score of 19. Electronically Signed By: Sandy Boyd LPN [facility] 07-14-2024 Note HNO ID: [id number] Author: OLGA NIEVES PA-C Service: ? Author Type: Physician Earthmoving Labourer Type: Progress Notes Filed: 07/15/2024 17:30 Note Text: Plastic Surgery Note CC: Post op HPI: Yolande is a 43 year old female s/p 06/16/2024 Bilateral breast reconstruction with tissue bundler seasonal greenery placement (Abbvie 133 mV 500 mL) in prepectoral positions with use of matrix support 20x25 cm (500 cm2) on each side of the breast bilaterally. Time Post Op: 1 month Bilateral TE Volume: 400 mL air/500 mL Here today for tissue expansion She had right breast excision of margin by Dr. Taylor on 07/06/24 (drains removed during this surgery) Patient reports tightness and tenderness bilateral breasts, burning sensation is improving Pain: 06/03- Taking tylenol, advil, and oxycodone Currently taking Duricef, has 2 doses left ROS: No fevers, chills, new redness, pain, wound drainage or incisional breakdown Objective: LMP 06/22/2024 (Exact Date) PAST MEDICAL HISTORY Diagnosis Date Acne On spironolactone Anxiety Dysmenorrhea Dyspareunia Hypothyroidism also known nodule Migraines Papanicolaou smear of cervix with low grade squamous intraepithelial lesion (LGSIL) 02/24/2006 PMH - PAST MEDICAL HISTORY OF bipolar, borderline personality disorder PAST SURGICAL HISTORY Procedure Laterality Date PAST SURGICAL HISTORY OF tonsils PAST SURGICAL HISTORY OF DANDC 2017 and 2020 Current Outpatient Medications Medication Sig Dispense Refill anastrozole (ARIMIDEX) 1 mg tablet Take 1 tablet by mouth once daily. Patient should start on July 14, 2024. 30 tablet 2 cholecalciferol (VITAMIN D3) 5,000 unit tab Take by mouth. FLUoxetine (PROZAC) 40 mg capsule Take 50 mg by mouth once daily. levothyroxine (SYNTHROID) 100 mcg tablet Take 1 tablet on 5 days of the week, skip on 2 days of the week (may be Friday and Friday) 65 tablet 1 eletriptan (RELPAX) 40 mg tablet TAKE 1 TABLET NEEDED FOR MIGRAINE HEADACHE (SEE ADMINISTRATION INSTRUCTIONS) AT THE ONSET OF MIGRAINE HEADACHE (1 IN 24 HOURS) (Patient not taking: Reported on 06/23/2024) 12 tablet 19 Magnesium 200 mg tab Take by mouth. (Patient not taking: Reported on 06/23/2024) SEMAGLUTIDE, WEIGHT LOSS, SUBCUTANEOUS Inject 70 Units subcutaneously one time a week. spironolactone (ALDACTONE) 50 mg tablet No current facility-administered medications for this visit. ALLERGIES Allergen Reactions Penicillins Anaphylaxis PE: AANDOx3, NAD BP 116/73 Pulse 91 Temp 36.7 ?C (98 ?F) (Temporal) Resp 14 LMP 06/22/2024 (Exact Date) SpO2 98% The wounds are dry and intact with no s/s infection No symptoms or signs of infection Bilateral breasts soft, no evidence of hematoma/seroma The patient was identified by name and , that presents today for post-op appointment for breast tissue expansion. There were no issues with last expansion. Expansion process explained to patient. Discussed risks, benefits alternatives and personnel. Questions answered. Patient expresses understanding of process. Patient tolerated the procedure well. Current total 400 cc air/ 500 cc Bilateral TE 400 cc air removed from bilateral tissue expanders Filled with 300 cc NS Bilateral TE New total: 300 cc NS /500 cc Bilateral TE Aspiration of Seroma Procedure Note Location: Bilateral breast Seroma Safety check performed The patient agreed on the procedure to be done R/B/A discussed with the patient Bilateral breast prepped with chloraprep and sterilely draped A 21 gauge angiocath/butterfly needle was inserted into bilateral breast seroma yielding 50 cc ss fluid bilaterally (50 cc right breast and 50 cc left breast) A dry sterile dressing was applied The patient tolerated the procedure well. A/P: S/p bilateral breast reconstruction with placement of TE and matrix support Expected post operative course Doing well -Expansion as above -Seroma drainage as above, instructed to wear ESTEFANIA compression wrap -activity restrictions discussed, okay to resume activity/exercise slowly, easily progress -continue surgical bra, can use sports bra/soft bra, no underwire. Can stop wearing at night -avoid water submersion (pools/ baths/ hot tub) until here are no open areas or scabs along incision and you are fully healed -okay for silicone sheets/scar massage if indicated -okay for skin/scar moisturizer, rec Aquaphor/Eucerin/Cerave -okay to sleep on your sides If experiencing wound complications or have any questions or concerns during business hours call [phone] or after hours (after 5 pm or on the weekend) call [phone] and ask for the plastic surgery resident / fellow computer applications developer for further instructions. If you have increasing swelling or bruising, particularly one side greater than the other. If swelling and redness persists after a few days. If you have increased redness along the incision. If you have severe or increased pain not reli (more content not included)... [facility] 07-06-2024 Note HNO ID: [id number] Author: WILLIE RILEY DO Service: ? Author Type: Anesthesiologist Type: Anesthesia Procedure Notes Filed: 07/06/2024 07:45 Note Text: ANESTHESIOLOGY PROCEDURE NOTE Airway General Information Procedure Start Time/Medication Administration: 07/06/2024 7:34 AM Procedure End Time: 07/06/2024 7:34 AM Patient location during procedure: OR Timeout Performed Pre-procedure: timeout performed Consent Obtained: Yes Patient identity confirmed: arm band Staffing Anesthesiologist: Willie Riley DO Performed by: anesthesiologist Indications and Patient Condition Indications for airway management: anesthesia and airway protection Preoxygenated: yes anesthesia circuit Patient position: sniffing Method: asleep Cricoid Pressure: No Manual In-Line Stabilization: No Difficult Mask: No Final Airway Details Final airway type: supraglottic airway Number of attempts at approach: 1 Final Supraglottic Airway: i-gel Size 4 Seal Adequate: yes SIGNATURE: Willie Riley DO PATIENT NAME: Yolande Gomes DATE: July 06, 2024 TIME: 7:44 AM CSN: [id number] [facility] 07-05-2024 Note HNO ID: [id number] Author: JAIMEE RANDALL MD Service: ? Author Type: Physician Type: Progress Notes Filed: 07/13/2024 11:14 Note Text: BREAST MEDICAL ONCOLOGY VISIT NOTE HISTORY AND PHYSICAL EXAMINATION PATIENT NAME: Yolande Gomes AGE: [age] year old CHIEF COMPLAINT: Breast Cancer as described below: PRIMARY CANCER: 05/2024 right IDC ER [id number] [id number] Prognostic Stage 1A [T1a(3mm) Ni+ M0 ] breast cancer. Cancer Staging Carcinoma in situ of right breast Staging form: Breast, AJCC 8th Edition - Clinical stage from 06/01/2024: Stage 0 (cTis (DCIS), cN0, cM0, G2) - Unsigned - Pathologic stage from 07/05/2024: Stage IA (pT1a, pN0(i+), cM0, G1, ER+, MD+, HER2-) - Signed by Jaimee Randall MD on 07/05/2024 CURRENT TREATMENT: None yet Treatment goal 1. Oncology Curative Plan Name AMB LEUPROLIDE 22.5 D1 - Q91D Status Active Start Date 07/13/2024 (Planned) End Date 04/12/2025 (Planned) Provider Jaimee Randall MD Treatment medication leuprolide 22.5 mg subcutaneous syringe (ELIGARD), 22.5 mg, SUBCUTANEOUS, ONCE, 0 of 4 cycles GENETICS: 2024 Your Multi-Cancer panel through [facility] was negative for a pathogenic variant. A variant of uncertain significance (VUS) was detected: CTNNA1 c.2558A>G ([id number]). Menopausal status at the time of cancer diagnosis: Premenopausal Patient's last menstrual period was 06/22/2024 (exact date). ONCOLOGIC HISTORY: Oncology History Carcinoma in situ of right breast 06/01/2024 Initial Diagnosis Carcinoma in situ of right breast 07/05/2024 Cancer Staged Staging form: Breast, AJCC 8th Edition - Pathologic stage from 07/05/2024: Stage IA (pT1a, pN0(i+), cM0, G1, ER+, MD+, HER2-) - Signed by Jaimee Randall MD on 07/05/2024 07/13/2024 - Supportive Treatment Treatment Summary Treatment goal 1. Oncology Curative Plan Name AMB LEUPROLIDE 22.5 D1 - Q91D Status Active Start Date 07/13/2024 (Planned) End Date 04/12/2025 (Planned) Provider Jaimee Randall MD 11/2023: Unremarkable mammogram 12/2023 Nipple discharge 02/2024: bloody nipple discharge 04/13/24: MRI breast noted abnormal non mass enhancement of 2.3cm. L breast unremarkable. 05/10/24: Diagnostic Mammogram The breasts are heterogeneously dense, which may obscure small masses. The right mammogram is negative in the upper outer quadrant and at the site of focal pain at 11 o'clock 3 cm from the nipple. Finding 1: There are no suspicious mammographic findings to correspond with the bloody nipple discharge in the right breast. Finding 2: There are no suspicious mammographic findings to correspond with the non-bloody nipple discharge in the left breast. 05/10/24: BL US breasts RIGHT 05/10/2024 at 15:13:26 Addendum: Since imaging is negative in the right upper outer quadrant, right MRI biopsy is recommended. Discussed with Lissette Mcleod who will contact the patient. BI-RADS Category 4: Suspicious Finding 1: There is an intraductal mass measuring 0.6 x 0.2 x 0.2 cm in the right breast. Internal echotexture is hypoechoic. Color flow imaging demonstrates vascularity is present. Finding correlates to the bloody nipple discharge in the right breast. Ultrasound is negative in the right upper outer quadrant and at the site of focal pain at 11 o'clock 3 cm from the nipple. Finding 2: There are no suspicious sonographic findings to correspond with the non-bloody nipple discharge in the left breast. 05/20/24: Biopsy reported FINAL DIAGNOSIS A. Right breast at 10 o'clock, subareolar, ultrasound-guided core biopsy with Q-clip placement: - Minute fragments of fibrovascular and adipose tissue. - No breast ducts or intraductal lesion present for review. 05/27/24: Biopsy reported FINAL DIAGNOSIS A. 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 B. 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 INTERVAL HISTORY: Here for post-op visit. Review of Systems: Reviewed and otherwise negative PAST MEDICAL HISTORY Diagnosis Date Acne On spironolactone Anxiety Dysmenorrhea Dyspareunia Hypothyroidism also known nodule Migraines Papanicolaou smear of cervix with low grade squamous intraepithelial lesion (LGSIL) 02/24/2006 PMH - PAST MEDICAL HISTORY OF bipolar, borderline personality disorder PAST SURGICAL HISTORY Procedure Laterality Date PAST SURGICAL HISTORY OF tonsils PAST SURGICAL HISTORY OF DANDC 2017 and 2020 Family History Problem Relation Age of Onset other (multiple myeloma) Paternal Aunt Hypertension Maternal Grandmother Cancer Maternal Grandfather Lung cancer, history of tobacco use Esophageal Cancer Paternal Grandmother Heart Paternal Grandfather Stroke Paternal Gr (more content not included)... [facility] 07-01-2024 Note HNO ID: [id number] Author: OLGA NIEVES PA-C Service: ? Author Type: Physician Earthmoving Labourer Type: Progress Notes Filed: 07/16/2024 06:25 Note Text: Plastic Surgery Note CC: Post op HPI: Yolande is a 43 year old female s/p 06/16/2024 Bilateral breast reconstruction with tissue bundler seasonal greenery placement (Abbvie 133 mV 500 mL) in prepectoral positions with use of matrix support 20x25 cm (500 cm2) on each side of the breast bilaterally. Time Post Op: 15 days Bilateral TE Volume: 400 mL air/500 mL Patient reports a burning sensation across her chest Pain: 6/10- Taking tylenol, advil, and oxycodone SUSY drains: #1 <30 ml daily for 2 consecutive days #2 <30 ml daily for 2 consecutive days On Duricef ROS: No fevers, chills, new redness, pain, wound drainage or incisional breakdown Objective: BP 126/77 Pulse 77 Temp 36.9 ?C (98.5 ?F) Ht 160 cm (5' 3) Wt 73 kg (161 lb) LMP 06/22/2024 (Exact Date) BMI 28.52 kg/m? PAST MEDICAL HISTORY Diagnosis Date Acne On spironolactone Anxiety Dysmenorrhea Dyspareunia Hypothyroidism also known nodule Migraines Papanicolaou smear of cervix with low grade squamous intraepithelial lesion (LGSIL) 02/24/2006 PMH - PAST MEDICAL HISTORY OF bipolar, borderline personality disorder PAST SURGICAL HISTORY Procedure Laterality Date PAST SURGICAL HISTORY OF tonsils PAST SURGICAL HISTORY OF DANDC 2017 and 2020 Current Outpatient Medications Medication Sig Dispense Refill cholecalciferol (VITAMIN D3) 5,000 unit tab Take by mouth. oxyCODONE IR (ROXICODONE) 5 mg immediate release tablet Take 1 tablet by mouth every 8 hours as needed for pain for up to 7 days. 21 tablet 0 acetaminophen (TYLENOL) 500 mg tablet Take 2 tablets by mouth every 6 hours for 5 days, THEN 1-2 tablets every 6 hours as needed for pain for up to 10 days. 90 tablet 0 senna (SENOKOT) 8.6 mg tab Take 1 tablet by mouth two times a day as needed for constipation for up to 15 days. 30 tablet 0 FLUoxetine (PROZAC) 40 mg capsule Take 50 mg by mouth once daily. levothyroxine (SYNTHROID) 100 mcg tablet Take 1 tablet on 5 days of the week, skip on 2 days of the week (may be Friday and Friday) 65 tablet 1 eletriptan (RELPAX) 40 mg tablet TAKE 1 TABLET NEEDED FOR MIGRAINE HEADACHE (SEE ADMINISTRATION INSTRUCTIONS) AT THE ONSET OF MIGRAINE HEADACHE (1 IN 24 HOURS) (Patient not taking: Reported on 06/23/2024) 12 tablet 19 Magnesium 200 mg tab Take by mouth. (Patient not taking: Reported on 06/23/2024) SEMAGLUTIDE, WEIGHT LOSS, SUBCUTANEOUS Inject 70 Units subcutaneously one time a week. spironolactone (ALDACTONE) 50 mg tablet No current facility-administered medications for this visit. ALLERGIES Allergen Reactions Penicillins Anaphylaxis PE: AANDOx3, NAD The wounds are dry and intact with no s/s infection No symptoms or signs of infection Bilateral breasts soft, no evidence of hematoma/seroma A/P: S/p bilateral breast reconstruction with placement of TE and matrix support Expected post operative course Doing well SUSY drain dressings changed today Continue to record SUSY drain output Activity restrictions discussed. No lifting anything great than 10 lbs Will plan to replace air with saline to bilateral TE's next week If experiencing wound complications or have any questions or concerns during business hours call [phone] or after hours (after 5 pm or on the weekend) call [phone] and ask for the plastic surgery resident / fellow computer applications developer for further instructions. If you have increasing swelling or bruising, particularly one side greater than the other. If swelling and redness persists after a few days. If you have increased redness along the incision. If you have severe or increased pain not relieved by medication. If you have an oral temperature of 100.4 degrees or higher. If you have any yellow or greenish drainage from the incisions or notice a foul smell. If you have bleeding from the incisions that is difficult to control with light pressure If you have new chest pain, shortness of breath or difficulty breathing Follow up 1 week Olga Nieves PA-C 07/01/2024 [facility] 06-30-2024 History of Present illness Narrative Called Ms. Gomes regarding pathology results. Given two focal < 1 mm involved margin for DCIS, recommended excision of small amount of overlying skin. This was marked previously intraoperatively, thus area of involvement can be targeted. Discussed with Dr. Messina and he is ok if we proceed with surgery without him. Reviewed next available date will be 07/06/24. This day will work for Ms. Gomes. Plan to be first case. Rt breast margin re-excision (marked with 4-0 proline sutures) Consent to be sent via [employer] FISH for HER2 is pending Notified Mayuri Ma, and Mindy Taylor MD Ms. Gomes consented to telephone visit I spent a total of 30 minutes on the date of the service which included preparing to see the patient, completing clinical documentation, counseling and educating the patient/family/caregiver, communicating with other HCPs (not separately reported), communicating results to the patient/family/caregiver, and care coordination (not separately reported). documented in this encounter [facility] 06-30-2024 Note HNO ID: [id number] Author: PRADEEP TAYLOR MD Service: ? Author Type: Physician Type: Progress Notes Filed: 06/30/2024 12:43 Note Text: Called Ms. Gomes regarding pathology results. Given two focal < 1 mm involved margin for DCIS, recommended excision of small amount of overlying skin. This was marked previously intraoperatively, thus area of involvement can be targeted. Discussed with Dr. Messina and he is ok if we proceed with surgery without him. Reviewed next available date will be 07/06/24. This day will work for Ms. Gomes. Plan to be first case. Rt breast margin re-excision (marked with 4-0 proline sutures) Consent to be sent via [employer] FISH for HER2 is pending Notified Mayuri Ma, and Mindy Taylor MD Ms. Gomes consented to telephone visit I spent a total of 30 minutes on the date of the service which included preparing to see the patient, completing clinical documentation, counseling and educating the patient/family/caregiver, communicating with other HCPs (not separately reported), communicating results to the patient/family/caregiver, and care coordination (not separately reported). [facility] 06-27-2024 Note HNO ID: [id number] Author: NNAMDI FAIRBANKS MD Service: ? Author Type: Physician Type: Progress Notes Filed: 06/27/2024 23:56 Note Text: Radiation Oncology - New Patient/Consult Note PATIENT NAME: Yolande Gomes PATIENT REQUESTING PROVIDER: Pradeep Taylor MD DIAGNOSIS: 43 year old female, S/p RIGHT breast skin-sparing mastectomy, ipsilateral axillary sentinel lymph node biopsy; prophylactic LEFT breast total/simple mastectomy with bilateral TE reconstruction. Surgical Path: right breast IDC, grade-1, 3mm max dimension + DCIS(grade-2), 1(ILC)/2 SLN's, all margins negative for invasive carcinoma but DCIS + at superior margin. Final staging pT1aN0(i+). Patient is going to have further margin excision (discussed with Dr Taylor), no indication for PMRT. 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 Final recommendations will be communicated back to the requesting physician by way of the shared medical record, or letter to requesting physician via [place] mail. I reviewed Ms Gomes with her today in clinic. She is doing fine and is current post surgery. She is convalescing well. No issues reported. Her Surgical path is described above. The patient has been referred to us for consideration of radiotherapy options in the management of her disease. Prior radiation therapy or collagen vascular disease: No Any implanted or external electric devices? Yes : TE status: Patient states there is no possibility she is at this time. Educated on risks of during treatment. ALLERGIES Allergen Reactions Penicillins Anaphylaxis PAST MEDICAL HISTORY Diagnosis Date Acne On spironolactone Anxiety Dysmenorrhea Dyspareunia Hypothyroidism also known nodule Migraines Papanicolaou smear of cervix with low grade squamous intraepithelial lesion (LGSIL) 02/24/2006 PMH - PAST MEDICAL HISTORY OF bipolar, borderline personality disorder PAST SURGICAL HISTORY Procedure Laterality Date PAST SURGICAL HISTORY OF tonsils PAST SURGICAL HISTORY OF DANDC 2017 and 2020 FAMILY HISTORY Problem Relation Age of Onset other (multiple myeloma) Paternal Aunt Hypertension Maternal Grandmother Cancer Maternal Grandfather Lung cancer, history of tobacco use Esophageal Cancer Paternal Grandmother Heart Paternal Grandfather Stroke Paternal Grandfather Anesthesia Problems No Family History CHUTE WORKER HISTORY: OB History Gravida0 Para0 Term0 Preterm0 AB0 Living0 SAB0 IAB0 Ectopic0 Multiple0 Live Births0 Menarche age: 10 Menopausal status: pre-menopausal Social History Tobacco Use Smoking status: Never Smokeless tobacco: Former Types: Chew Quit date: 2009 Tobacco comments: For 3 years. Quit in 2009 Substance Use Topics Alcohol use: Yes Comment: monthly/social 2-3 drink mixed drink Drug use: No Occupation: [employer] Residence: [place] REVIEW OF SYSTEMS: GENERAL: feeling well without fatigue, no recent change in weight PHYSICAL EXAM: VS: BP 126/82 Pulse 86 Temp 36.8 ?C (98.2 ?F) (Oral) Resp 20 Wt 73.3 kg (161 lb 9.6 oz) LMP 06/22/2024 (Exact Date) SpO2 100% BMI 28.63 kg/m? KPS: 90 General Appearance: Alert and oriented. No acute distress. HEENT: NCAT. Sclera anicteric. PERRL. EOMI. Neck: Normal ROM. No palpable cervical or supraclavicular adenopathy. Chest: No respiratory distress. Lungs clear to auscultation bilaterally. Abdomen: Soft. Nontender. Nondistended. Musculoskeletal: No edema. Normal ROM in extremities. No bone or spine tenderness. Neuro: Speech fluent. Gait normal. No focal deficits. Skin: No rashes noted Lymphatics: No palpable lymphadenopathy. Breast: bilateral breasts are surgically absent, with healed incisions and tissue expanders in place, and no palpable masses Participation of a fellow, resident, medical student, or advanced practice provider student in performing the sensitive examination was discussed with the patient or authorized customer success representative. The patient or authorized customer success representative has agreed to proceed with the sensitive examination. ASSESSMENT AND PLAN: I personally interviewed and examined the patient, following this, I confirmed and edited the history documented. I also reviewed the pathology, radiology and labs. In summary, 43 year old female, S/p RIGHT breast skin-sparing mastectomy, ipsilateral axillary sentinel lymph node biopsy; prophylactic LEFT breast total/simple mastectomy with bilateral TE reconstruction. Surgical Path: right breast IDC, grade-1, 3mm max dimension + DCIS(grade-2), 1(ILC)/2 SLN's, all margins negative for invasive carcinoma but DCIS + at superior margin. Janet (more content not included)... [facility] 06-27-2024 History of Present illness Narrative Radiation Oncology - New Patient/Consult Note PATIENT NAME: Yolande Gomes PATIENT REQUESTING PROVIDER: Pradeep Taylor MD DIAGNOSIS: 43 year old female, S/p RIGHT breast skin-sparing mastectomy, ipsilateral axillary sentinel lymph node biopsy; prophylactic LEFT breast total/simple mastectomy with bilateral TE reconstruction. Surgical Path: right breast IDC, grade-1, 3mm max dimension + DCIS(grade-2), 1(ILC)/2 SLN's, all margins negative for invasive carcinoma but DCIS + at superior margin. Final staging pT1aN0(i+). Patient is going to have further margin excision (discussed with Dr Taylor), no indication for PMRT. 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 Final recommendations will be communicated back to the requesting physician by way of the shared medical record, or letter to requesting physician via [place] mail. I reviewed Ms Gomes with her today in clinic. She is doing fine and is current post surgery. She is convalescing well. No issues reported. Her Surgical path is described above. The patient has been referred to us for consideration of radiotherapy options in the management of her disease. Prior radiation therapy or collagen vascular disease: No Any implanted or external electric devices? Yes : TE status: Patient states there is no possibility she is at this time. Educated on risks of during treatment. ALLERGIES Allergen Reactions Penicillins Anaphylaxis PAST MEDICAL HISTORY Diagnosis Date Acne On spironolactone Anxiety Dysmenorrhea Dyspareunia Hypothyroidism also known nodule Migraines Papanicolaou smear of cervix with low grade squamous intraepithelial lesion (LGSIL) 02/24/2006 PMH - PAST MEDICAL HISTORY OF bipolar, borderline personality disorder PAST SURGICAL HISTORY Procedure Laterality Date PAST SURGICAL HISTORY OF tonsils PAST SURGICAL HISTORY OF D&C 2017 and 2020 FAMILY HISTORY Problem Relation Age of Onset other (multiple myeloma) Paternal Aunt Hypertension Maternal Grandmother Cancer Maternal Grandfather Lung cancer, history of tobacco use Esophageal Cancer Paternal Grandmother Heart Paternal Grandfather Stroke Paternal Grandfather Anesthesia Problems No Family History CHUTE WORKER HISTORY: OB History Gravida0 Para0 Term0 Preterm0 AB0 Living0 SAB0 IAB0 Ectopic0 Multiple0 Live Births0 Menarche age: 10 Menopausal status: pre-menopausal Social History Tobacco Use Smoking status: Never Smokeless tobacco: Former Types: Chew Quit date: 2009 Tobacco comments: For 3 years. Quit in 2009 Substance Use Topics Alcohol use: Yes Comment: monthly/social 2-3 drink mixed drink Drug use: No Occupation: Unk Residence: [place] REVIEW OF SYSTEMS: GENERAL: feeling well without fatigue, no recent change in weight PHYSICAL EXAM: VS: BP 126/82 Pulse 86 Temp 36.8 C (98.2 F) (Oral) Resp 20 Wt 73.3 kg (161 lb 9.6 oz) LMP 06/22/2024 (Exact Date) SpO2 100% BMI 28.63 kg/m KPS: 90 General Appearance: Alert and oriented. No acute distress. HEENT: NCAT. Sclera anicteric. PERRL. EOMI. Neck: Normal ROM. No palpable cervical or supraclavicular adenopathy. Chest: No respiratory distress. Lungs clear to auscultation bilaterally. Abdomen: Soft. Nontender. Nondistended. Musculoskeletal: No edema. Normal ROM in extremities. No bone or spine tenderness. Neuro: Speech fluent. Gait normal. No focal deficits. Skin: No rashes noted Lymphatics: No palpable lymphadenopathy. Breast: bilateral breasts are surgically absent, with healed incisions and tissue expanders in place, and no palpable masses Participation of a fellow, resident, medical student, or advanced practice provider student in performing the sensitive examination was discussed with the patient or authorized customer success representative. The patient or authorized customer success representative has agreed to proceed with the sensitive examination. ASSESSMENT AND PLAN: I personally interviewed and examined the patient, following this, I confirmed and edited the history documented. I also reviewed the pathology, radiology and labs. In summary, 43 year old female, S/p RIGHT breast skin-sparing mastectomy, ipsilateral axillary sentinel lymph node biopsy; prophylactic LEFT breast total/simple mastectomy with bilateral TE reconstruction. Surgical Path: right breast IDC, grade-1, 3mm max dimension + DCIS(grade-2), 1(ILC)/2 SLN's, all margins negative for invasive carcinoma but DCIS + at superior margin. Final staging pT1aN0(i+). Patient is going to have further margin excision (discussed with Dr Taylor), no indication for PMRT. Signed by: Nnamdi Fairbanks MD cc: Isabela Olivera [phone] [place] [address] Pradeep Taylor [id number] [facility] [id number] documented in this encounter [facility] 06-24-2024 History of Present illness Narrative Plastic Surgery Note CC: Post op HPI: Yolande is a 43 year old female s/p 06/16/2024 Bilateral breast reconstruction with tissue bundler seasonal greenery placement (Abbvie 133 mV 500 mL) in prepectoral positions with use of matrix support 20x25 cm (500 cm2) on each side of the breast bilaterally. Time Post Op: 8 days Bilateral TE Volume: 400 mL air/500 mL Patient reports a burning sensation across her chest Pain: 08/03- Taking tylenol, advil, and oxycodone SUSY drains: #1 >30 ml daily for 2 consecutive days #2 >30 ml daily for 2 consecutive days On Duricef until 06/30/2024 ROS: No fevers, chills, new redness, pain, wound drainage or incisional breakdown Objective: LMP 06/22/2024 (Exact Date) PAST MEDICAL HISTORY Diagnosis Date Acne On spironolactone Anxiety Dysmenorrhea Dyspareunia Hypothyroidism also known nodule Migraines Papanicolaou smear of cervix with low grade squamous intraepithelial lesion (LGSIL) 02/24/2006 PMH - PAST MEDICAL HISTORY OF bipolar, borderline personality disorder PAST SURGICAL HISTORY Procedure Laterality Date PAST SURGICAL HISTORY OF tonsils PAST SURGICAL HISTORY OF D&C 2017 and 2020 Current Outpatient Medications Medication Sig Dispense Refill acetaminophen (TYLENOL) 500 mg tablet Take 2 tablets by mouth every 6 hours for 5 days, THEN 1-2 tablets every 6 hours as needed for pain for up to 10 days. 90 tablet 0 senna (SENOKOT) 8.6 mg tab Take 1 tablet by mouth two times a day as needed for constipation for up to 15 days. 30 tablet 0 cefADROxil (DURICEF) 500 mg capsule Take 1 capsule by mouth two times a day for 14 days. 28 capsule 0 FLUoxetine (PROZAC) 40 mg capsule Take 50 mg by mouth once daily. levothyroxine (SYNTHROID) 100 mcg tablet Take 1 tablet on 5 days of the week, skip on 2 days of the week (may be Friday and Friday) 65 tablet 1 eletriptan (RELPAX) 40 mg tablet TAKE 1 TABLET NEEDED FOR MIGRAINE HEADACHE (SEE ADMINISTRATION INSTRUCTIONS) AT THE ONSET OF MIGRAINE HEADACHE (1 IN 24 HOURS) (Patient not taking: Reported on 06/23/2024) 12 tablet 19 Magnesium 200 mg tab Take by mouth. (Patient not taking: Reported on 06/23/2024) SEMAGLUTIDE, WEIGHT LOSS, SUBCUTANEOUS Inject 70 Units subcutaneously one time a week. spironolactone (ALDACTONE) 50 mg tablet No current facility-administered medications for this visit. ALLERGIES Allergen Reactions Penicillins Anaphylaxis PE: A&Ox3, NAD The wounds are dry and intact with no s/s infection No symptoms or signs of infection Bilateral breasts soft, no evidence of hematoma/seroma A/P: S/p bilateral breast reconstruction with placement of TE and matrix support Expected post operative course Doing well SUSY drain dressings changed today Continue to record SUSY drain output Activity restrictions discussed. No lifting anything great than 10 lbs Will plan to replace air with saline to bilateral TE's next week If experiencing wound complications or have any questions or concerns during business hours call [phone] or after hours (after 5 pm or on the weekend) call [phone] and ask for the plastic surgery resident / fellow computer applications developer for further instructions. If you have increasing swelling or bruising, particularly one side greater than the other. If swelling and redness persists after a few days. If you have increased redness along the incision. If you have severe or increased pain not relieved by medication. If you have an oral temperature of 100.4 degrees or higher. If you have any yellow or greenish drainage from the incisions or notice a foul smell. If you have bleeding from the incisions that is difficult to control with light pressure If you have new chest pain, shortness of breath or difficulty breathing Follow up 1 week Olga Nieves PA-C 06/24/2024 documented in this encounter [facility] 06-24-2024 Note HNO ID: [id number] Author: OLGA NIEVES PA-C Service: ? Author Type: Physician Earthmoving Labourer Type: Progress Notes Filed: 06/28/2024 13:12 Note Text: Plastic Surgery Note CC: Post op HPI: Yolande is a 43 year old female s/p 06/16/2024 Bilateral breast reconstruction with tissue bundler seasonal greenery placement (Abbvie 133 mV 500 mL) in prepectoral positions with use of matrix support 20x25 cm (500 cm2) on each side of the breast bilaterally. Time Post Op: 8 days Bilateral TE Volume: 400 mL air/500 mL Patient reports a burning sensation across her chest Pain: 08/03- Taking tylenol, advil, and oxycodone SUSY drains: #1 >30 ml daily for 2 consecutive days #2 >30 ml daily for 2 consecutive days On Duricef until 06/30/2024 ROS: No fevers, chills, new redness, pain, wound drainage or incisional breakdown Objective: LMP 06/22/2024 (Exact Date) PAST MEDICAL HISTORY Diagnosis Date Acne On spironolactone Anxiety Dysmenorrhea Dyspareunia Hypothyroidism also known nodule Migraines Papanicolaou smear of cervix with low grade squamous intraepithelial lesion (LGSIL) 02/24/2006 PMH - PAST MEDICAL HISTORY OF bipolar, borderline personality disorder PAST SURGICAL HISTORY Procedure Laterality Date PAST SURGICAL HISTORY OF tonsils PAST SURGICAL HISTORY OF DANDC 2017 and 2020 Current Outpatient Medications Medication Sig Dispense Refill acetaminophen (TYLENOL) 500 mg tablet Take 2 tablets by mouth every 6 hours for 5 days, THEN 1-2 tablets every 6 hours as needed for pain for up to 10 days. 90 tablet 0 senna (SENOKOT) 8.6 mg tab Take 1 tablet by mouth two times a day as needed for constipation for up to 15 days. 30 tablet 0 cefADROxil (DURICEF) 500 mg capsule Take 1 capsule by mouth two times a day for 14 days. 28 capsule 0 FLUoxetine (PROZAC) 40 mg capsule Take 50 mg by mouth once daily. levothyroxine (SYNTHROID) 100 mcg tablet Take 1 tablet on 5 days of the week, skip on 2 days of the week (may be Friday and Friday) 65 tablet 1 eletriptan (RELPAX) 40 mg tablet TAKE 1 TABLET NEEDED FOR MIGRAINE HEADACHE (SEE ADMINISTRATION INSTRUCTIONS) AT THE ONSET OF MIGRAINE HEADACHE (1 IN 24 HOURS) (Patient not taking: Reported on 06/23/2024) 12 tablet 19 Magnesium 200 mg tab Take by mouth. (Patient not taking: Reported on 06/23/2024) SEMAGLUTIDE, WEIGHT LOSS, SUBCUTANEOUS Inject 70 Units subcutaneously one time a week. spironolactone (ALDACTONE) 50 mg tablet No current facility-administered medications for this visit. ALLERGIES Allergen Reactions Penicillins Anaphylaxis PE: AANDOx3, NAD The wounds are dry and intact with no s/s infection No symptoms or signs of infection Bilateral breasts soft, no evidence of hematoma/seroma A/P: S/p bilateral breast reconstruction with placement of TE and matrix support Expected post operative course Doing well SUSY drain dressings changed today Continue to record SUSY drain output Activity restrictions discussed. No lifting anything great than 10 lbs Will plan to replace air with saline to bilateral TE's next week If experiencing wound complications or have any questions or concerns during business hours call [phone] or after hours (after 5 pm or on the weekend) call [phone] and ask for the plastic surgery resident / fellow computer applications developer for further instructions. If you have increasing swelling or bruising, particularly one side greater than the other. If swelling and redness persists after a few days. If you have increased redness along the incision. If you have severe or increased pain not relieved by medication. If you have an oral temperature of 100.4 degrees or higher. If you have any yellow or greenish drainage from the incisions or notice a foul smell. If you have bleeding from the incisions that is difficult to control with light pressure If you have new chest pain, shortness of breath or difficulty breathing Follow up 1 week Olga Nieves PA-C 06/24/2024 [facility] 06-24-2024 Telephone encounter Note Patient called confused about pathology and need for additional surgery. Discussed with LOUIS Rizzo and called patient back. Patient states understanding. Will discuss with Dr Taylor on 06/28. Nikia Rowland RN June 24, 2024 12:43 PM [facility] Work Phone: 06-24-2024 Miscellaneous Notes Patient called confused about pathology and need for additional surgery. Discussed with LOUIS Rizzo and called patient back. Patient states understanding. Will discuss with Dr Taylor on 06/28. Nikia Rowland RN June 24, 2024 12:43 PM documented in this encounter [facility] 06-23-2024 Miscellaneous Notes On 06/23 I Called and spoke with patient regarding positive surgical margin. Spoke with her in length about the pathology. We discussed the need to leave the skin suture in place which is marking the area of re-excision. I explained that if she undergoes surgical excision she will not require radiation. Dr. Taylor will be in contact with her and we will coordinate care for upcoming appointments and surgery. We will reach back out with a final plan and dates. Patient is in agreement with the plan. SUSANNA Fuentes Breast Surgical Oncology documented in this encounter [facility] 06-23-2024 Telephone encounter Note On 06/23 I Called and spoke with patient regarding positive surgical margin. Spoke with her in length about the pathology. We discussed the need to leave the skin suture in place which is marking the area of re-excision. I explained that if she undergoes surgical excision she will not require radiation. Dr. Taylor will be in contact with her and we will coordinate care for upcoming appointments and surgery. We will reach back out with a final plan and dates. Patient is in agreement with the plan. Kary PARK, SUSANNA Breast Surgical Oncology [facility] Work Phone: 06-23-2024 History of Present illness Narrative Images from the original note were not included. [facility] [place] Department of Breast Surgical Oncology [facility] POST OPERATIVE FOLLOW-UP SERVICE DATE: 06/23/24 SURGERY DATE: 06/16/2024 POSTOPERATIVE VISIT #1 SUBJECTIVE: Yolande Gomes, 43 year old year old female presents today for her first post operative appointment status post Right Breast Mastectomy, Right Axillary [place] lymph node biopsy, Left Breast prophylactic Mastectomy with Dr. Taylor in combination with Dr. Messina for bilateral tissue bundler seasonal greenery placement. She is overall doing well postoperatively. She endorses some pain and discomfort especially with movement. She was given oxycodone postoperatively and is still taking them every 12 hours. 0 refills were given. She denies any erythema, discharge from the incision, or significant swelling. She denies fever, chills, night sweats, chest pain, shortness of breath, nausea, vomiting, diarrhea, constipation, or urinary changes. Her drains are both above 30ccs PATHOLOGY REPORT: SURGICAL PATHOLOGY: [id number] Order: [id number] Collected 06/16/2024 12:48 PM Status: Final result Dx: Ductal carcinoma in situ (DCIS) of ri... Test Result Released: No (scheduled for 06/27/2024 1:47 PM) 0 Result Notes Component FINAL DIAGNOSIS A. Right breast, mastectomy: - Invasive ductal carcinoma, [place] grade I, measuring 3 mm in greatest dimension (please see synoptic report and Comment I). - Ductal carcinoma in-situ (DCIS), cribriform and papillary types, of intermediate nuclear grade. - Atypical ductal hyperplasia (ADH). - Microcalcifications in DCIS. - Biopsy site changes and biopsy clips (x3) identified. - Multiple levels examined. B. Right axillary sentinel lymph node #1, hot not blue, #40,000: - Isolated tumor cells in one of one lymph node examined. - Please see Comment II. C. Right axillary sentinel lymph node #2, not hot not blue, palpable: - One lymph node; negative for metastatic carcinoma (0/1). - Please see Comment III. D. Left breast, mastectomy: - Unremarkable breast tissue and skin. E. Right areolar skin from right breast mastectomy, adipose tissue: - Skin with intradermal nevus. [facility] 06/22/24 at 1347 EDT BREAST MARKERS: [id number] Order: [id number] - Reflex for Order [id number] Collected 06/16/2024 12:48 PM Status: Final result Dx: Ductal carcinoma in situ (DCIS) of ri... Test Result Released: No 0 Result Notes Component ER status Positive (greater than 10%) ER % staining 95 Estrogen Receptor (Staining Intensity) Strong Estrogen Receptor Internal Control Present and Stained as Expected Estrogen Receptor External Control Present and Stained as Expected MD status Positive (greater than or equal to 1%) MD % staining 99 Progesterone Receptor (Staining Intensity) Strong Progesterone Receptor Internal Control Present and Stained as Expected Progesterone Receptor External Control Present and Stained as Expected HER2 IHC Status Equivocal for HER2 Overexpression HER2 IHC Score 2+ Uniform Intense Complete Membrane Staining <1 Tumor Type Primary Invasive Breast Carcinoma Breast Tumor Grade Grade 1 [facility] The sensitive examination was discussed with the Patient or Patient's Authorized Water Service Supervisor. As applicable, any other physician, advance practice provider, medical student, or other health professional student that will be observing or involved in the sensitive examination for educational or training purposes was discussed with the Patient or Authorized Water Service Supervisor. The Patient or Authorized Water Service Supervisor has agreed to proceed with the sensitive examination. (Sensitive examination includes inspection and/or palpation of the breasts, pelvis, prostate and anorectal regions) OBJECTIVE: PHYSICAL EXAM: Bilateral breast incisions are healing well with intact overlying steri strips. Intact underlying tissue expanders. Minor ecchymosis. No surrounding erythema, edema, or areas of fluctuance. SUSY drains x2 with SSG output. POST OPERATIVE STATUS: POST OPERATIVE STATUS OR RIGHT BREAST: Uncomplicated post-operative course, POST OPERATIVE STATUS OR LEFT BREAST: Uncomplicated post-operative course, Assessment ASSESSMENT: Yolande Gomes, 43 year old year old female presents today for her first post operative appointment status post Right Breast Mastectomy, Right Axillary [place] lymph node biopsy, Left Breast prophylactic Mastectomy with Dr. Taylor in combination with Dr. Messina for bilateral tissue bundler seasonal greenery placement. Her final pathology revealed a 3mm right breast IDC with isolated tumor cells in one 1/2 lymph node, grade 1, ER+, MD+, HER2 equivocal, FISH pending. We reviewed these results in detail. She is overall doing well with no surgical site concerns. PLAN: Appointment with radiation oncology today Follow up with plastic surgery tomorrow 06/24 Follow up with medical oncology 07/[address] Taylor in 3 months Contact the breast surgery office for any questions and/or concerns regarding the surgical incision/site. All questions were answered; patient has no further concerns and is in agreement with the plan. Kary Rizzo APRN-CASE AIDE, [facility] Breast Surgical Oncology Call Physician If: Call your MD or seek immediate medical attention if you experience any of the following symptoms: 1. Fever of 101.5 (38.5 C) or greater 2. Pain not controlled with prescribed pain medications 3. Uncontrolled nausea and/or vomiting 4. Drainage or swelling around your incisions and/or surgical sites 5. Separation of incisions, or tearing of the incision line 6. Large fluid collection under or around the incision or flap sites 7. Skin discoloration (including darkened or pale appearance) 8. Difficulty breathing 9. Swelling, pain, heat and/or redness in your legs and/or calves 10. Inability to tolerate diet/fluid intake documented in this encounter [facility] 06-23-2024 Note HNO ID: [id number] Author: KARY RIZZO APRN.RODO Service: ? Author Type: Nurse Practitioner Type: Progress Notes Filed: 06/29/2024 13:01 Note Text: [facility] Department of Breast Surgical Oncology [facility] POST OPERATIVE FOLLOW-UP SERVICE DATE: 06/23/24 SURGERY DATE: 06/16/2024 POSTOPERATIVE VISIT #1 SUBJECTIVE: Yolande Gomes, 43 year old year old female presents today for her first post operative appointment status post Right Breast Mastectomy, Right Axillary [place] lymph node biopsy, Left Breast prophylactic Mastectomy with Dr. Taylor in combination with Dr. Messina for bilateral tissue bundler seasonal greenery placement. She is overall doing well postoperatively. She endorses some pain and discomfort especially with movement. She was given oxycodone postoperatively and is still taking them every 12 hours. 0 refills were given. She denies any erythema, discharge from the incision, or significant swelling. She denies fever, chills, night sweats, chest pain, shortness of breath, nausea, vomiting, diarrhea, constipation, or urinary changes. Her drains are both above 30ccs PATHOLOGY REPORT: SURGICAL PATHOLOGY: [id number] Order: [id number] Collected 06/16/2024 12:48 PM Status: Final result Dx: Ductal carcinoma in situ (DCIS) of ri... Test Result Released: No (scheduled for 06/27/2024 1:47 PM) 0 Result Notes Component FINAL DIAGNOSIS A. Right breast, mastectomy: - Invasive ductal carcinoma, [place] grade I, measuring 3 mm in greatest dimension (please see synoptic report and Comment I). - Ductal carcinoma in-situ (DCIS), cribriform and papillary types, of intermediate nuclear grade. - Atypical ductal hyperplasia (ADH). - Microcalcifications in DCIS. - Biopsy site changes and biopsy clips (x3) identified. - Multiple levels examined. B. Right axillary sentinel lymph node #1, hot not blue, #40,000: - Isolated tumor cells in one of one lymph node examined. - Please see Comment II. C. Right axillary sentinel lymph node #2, not hot not blue, palpable: - One lymph node; negative for metastatic carcinoma (0/1). - Please see Comment III. D. Left breast, mastectomy: - Unremarkable breast tissue and skin. E. Right areolar skin from right breast mastectomy, adipose tissue: - Skin with intradermal nevus. [facility] 06/22/24 at 1347 EDT BREAST MARKERS: [id number] Order: [id number] - Reflex for Order [id number] Collected 06/16/2024 12:48 PM Status: Final result Dx: Ductal carcinoma in situ (DCIS) of ri... Test Result Released: No 0 Result Notes Component ER status Positive (greater than 10%) ER % staining 95 Estrogen Receptor (Staining Intensity) Strong Estrogen Receptor Internal Control Present and Stained as Expected Estrogen Receptor External Control Present and Stained as Expected MD status Positive (greater than or equal to 1%) MD % staining 99 Progesterone Receptor (Staining Intensity) Strong Progesterone Receptor Internal Control Present and Stained as Expected Progesterone Receptor External Control Present and Stained as Expected HER2 IHC Status Equivocal for HER2 Overexpression HER2 IHC Score 2+ Uniform Intense Complete Membrane Staining <1 Tumor Type Primary Invasive Breast Carcinoma Breast Tumor Grade Grade 1 [facility] The sensitive examination was discussed with the Patient or Patient's Authorized Water Service Supervisor. As applicable, any other physician, advance practice provider, medical student, or other health professional student that will be observing or involved in the sensitive examination for educational or training purposes was discussed with the Patient or Authorized Water Service Supervisor. The Patient or Authorized Water Service Supervisor has agreed to proceed with the sensitive examination. (Sensitive examination includes inspection and/or palpation of the breasts, pelvis, prostate and anorectal regions) OBJECTIVE: PHYSICAL EXAM: Bilateral breast incisions are healing well with intact overlying steri strips. Intact underlying tissue expanders. Minor ecchymosis. No surrounding erythema, edema, or areas of fluctuance. SUSY drains x2 with SSG output. POST OPERATIVE STATUS: POST OPERATIVE STATUS OR RIGHT BREAST: Uncomplicated post-operative course, POST OPERATIVE STATUS OR LEFT BREAST: Uncomplicated post-operative course, Assessment ASSESSMENT: Yolande Gomes, 43 year old year old female presents today for her first post operative appointment status post Right Breast Mastectomy, Right Axillary [place] lymph node biopsy, Left Breast prophylactic Mastectomy with Dr. Taylor in combination with Dr. Messina for bilateral tissue bundler seasonal greenery placement. Her final pathology revealed a 3mm right breast IDC with isolated tumor cells in one 1/2 lymph node, grade 1, ER+, MD+, HER2 equivocal, FISH pending. We reviewed these (more content not included)... [facility] 06-16-2024 Note HNO ID: [id number] Author: SHARON ESCOBAR MD Service: ? 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 Staffing Anesthesiologist: Kathy Chavez MD Resident: Sharon Escobar MD Performed by: resident Indications and Patient Condition Indications for airway management: anesthesia Preoxygenated: yes anesthesia circuit Patient position: sniffing Method: asleep Difficult Mask: No Final Airway Details Final airway type: supraglottic airway Number of attempts at approach: 1 Final Supraglottic Airway: i-gel Size 3 Seal Adequate: yes SIGNATURE: Sharon Escobar MD PATIENT NAME: Yolande Gomes DATE: June 16, 2024 TIME: 11:55 AM CSN: [id number] [facility] 06-15-2024 History of Present illness Narrative RADIOLOGY SERVICE PROGRESS NOTE SERVICE DATE: 06/15/2024 SERVICE TIME: 1:37 PM PATIENT IDENTITY VERIFICATION COMPLETED USING TWO (2) STANDARD IDENTIFIERS: Name and Date of confirmed by patient verbally and Name and Date of confirmed by identification band FALL SCREENING: Has the patient had 2 falls in the last year or 1 fall with injury or currently using an Ambulatory Assistive Device (Walker, Cane, Wheelchair, Crutches, etc.)? No PATIENT GENDER DATA: .female : No ALLERGIES: Reviewed and unchanged MEDICATIONS REVIEWED: Yes PATIENT RELEVANT IMPLANT DATA REVIEWED: Not Applicable PATIENT PRESENTS WITH AN IMPLANTABLE OR ATTACHED PBX SUPERVISOR: No CREATININE: Creatinine Date Value Ref Range Status 05/31/2024 0.78 0.58 - 0.96 mg/dL Final 07/24/2023 0.88 0.58 - 0.96 mg/dL Final 10/22/2019 0.74 0.58 - 0.96 mg/dL Final Estimated Glomerular Filtration Rate Date Value Ref Range Status 05/31/2024 96 >=60 mL/min/1.73m Final Comment: Estimated Glomerular Filtration Rate (eGFR) is calculated using the 2020 CKD-EPI creatinine equation. This equation utilizes serum creatinine, sex, and age as parameters. The creatinine assay has traceable calibration to isotope dilution-mass spectrometry. Refer to KDIGO guidelines for clinical interpretation. In patients with unstable renal function, e.g. those with acute kidney injury, the eGFR may not accurately reflect actual GFR. eGFR- Date Value Ref Range Status 10/22/2019 >60 Final P.O.C.T. RESULTS: N/A June 15, [address] PERFORMED: No IV SITE: NM only - not applicable, oral or physician administered agents given to patient POST EXAM PIV STATUS: Not applicable PROCEDURE TYPE: NM lymphoscintigraphy: Breast 3.1 mCi Tc99m SULFUR COLLOID injected by Dr. SIBLEY. Site of injection: RT BREAST Administered time: 1:24PM Procedure time out completed at: 1:23PM Informed consent visualized: N/A Site (laterality) nahum visualized/completed: Yes ADMINISTRATION TIME: 1:24PM PATIENT DISCHARGED TO: Ambulatory patient, left NM department area. Is this a therapy: No A Diagnostic radioactive procedure has taken place, with no further precautions necessary other than routine body substance precautions. More information regarding radiation safety can be found using this link: [email or web address] %[email or web address] SIGNATURE: KYLE Enrique) PATIENT NAME: Yolande Gomes DATE: June 15, 2024 TIME: 1:37 PM PAGER/CONTACT #: documented in this encounter [facility] 06-15-2024 Note HNO ID: [id number] Author: MORTEZA OBRIEN RT(R) Service: ? Author Type: Technologist Type: Progress Notes Filed: 06/15/2024 13:38 Note Text: RADIOLOGY SERVICE PROGRESS NOTE SERVICE DATE: 06/15/2024 SERVICE TIME: 1:37 PM PATIENT IDENTITY VERIFICATION COMPLETED USING TWO (2) STANDARD IDENTIFIERS: Name and Date of confirmed by patient verbally and Name and Date of confirmed by identification band FALL SCREENING: Has the patient had 2 falls in the last year or 1 fall with injury or currently using an Ambulatory Assistive Device (Walker, Cane, Wheelchair, Crutches, etc.)? No PATIENT GENDER DATA: .female : No ALLERGIES: Reviewed and unchanged MEDICATIONS REVIEWED: Yes PATIENT RELEVANT IMPLANT DATA REVIEWED: Not Applicable PATIENT PRESENTS WITH AN IMPLANTABLE OR ATTACHED PBX SUPERVISOR: No CREATININE: Creatinine Date Value Ref Range Status 05/31/2024 0.78 0.58 - 0.96 mg/dL Final 07/24/2023 0.88 0.58 - 0.96 mg/dL Final 10/22/2019 0.74 0.58 - 0.96 mg/dL Final Estimated Glomerular Filtration Rate Date Value Ref Range Status 05/31/2024 96 >=60 mL/min/1.73m? Final Comment: Estimated Glomerular Filtration Rate (eGFR) is calculated using the 2020 CKD-EPI creatinine equation. This equation utilizes serum creatinine, sex, and age as parameters. The creatinine assay has traceable calibration to isotope dilution-mass spectrometry. Refer to KDIGO guidelines for clinical interpretation. In patients with unstable renal function, e.g. those with acute kidney injury, the eGFR may not accurately reflect actual GFR. eGFR- Date Value Ref Range Status 10/22/2019 >60 Final P.O.C.T. RESULTS: N/A June 15, [address] PERFORMED: No IV SITE: NM only - not applicable, oral or physician administered agents given to patient POST EXAM PIV STATUS: Not applicable PROCEDURE TYPE: NM lymphoscintigraphy: Breast 3.1 mCi Tc99m SULFUR COLLOID injected by Dr. SIBLEY. Site of injection: RT BREAST Administered time: 1:24PM Procedure time out completed at: 1:23PM Informed consent visualized: N/A Site (laterality) nahum visualized/completed: Yes ADMINISTRATION TIME: 1:24PM PATIENT DISCHARGED TO: Ambulatory patient, left NM department area. Is this a therapy: No A Diagnostic radioactive procedure has taken place, with no further precautions necessary other than routine body substance precautions. More information regarding radiation safety can be found using this link: [email or web address] 20Diagnostic%20Nuclear%20Medicine% 20Procedures.[email or web address] SIGNATURE: RT Klaus(R) PATIENT NAME: Yolande Gomes DATE: June 15, 2024 TIME: 1:37 PM PAGER/CONTACT #: [facility] 06-15-2024 History and physical note Images from the original note were not included. [facility] HISTORY AND PHYSICAL EXAMINATION SERVICE DATE: 06/15/2024 SERVICE TIME: 10:44 AM PRIMARY CARE PHYSICIAN: Isabela Olivera APRN.CASE AIDE Assessment Patient has the following medical conditions which may affect valentina-operative course: Hypothyroidism, acquired Controlled on Synthroid Anxiety Controlled on Prozac Migraines Controlled with prn use of Relpax. ANESTHESIA FINDINGS: Intubation History: No history of difficult intubation. No abnormal airway history Significant Anesthesia Considerations: US guided in the past potential difficult IV/vein access Airway History: No history of difficult airway No abnormal airway history Odonnell Activity Status Index: METS: Walk indoors, such as around the house (1.75 METs) Do light work around the house, such as dusting or washing dishes (2.70 METs) Take care of self; that is eating, dressing, bathing, using the toilet (2.75 METs) Walk a block or two on level ground (2.75 METs) Do moderate work around the house, such as vacuuming, sweeping floors, or carrying in groceries (3.50 METs) Do yardwork, such as raking leaves, weeding, or pushing a power mower (4.50 METs) Climb a flight of stairs or walk up a hill (5.50 METs) DASI Score: 23.45 Patient denies any chest pain or undue shortness of breath with the above physical activity. STOP-Bang Score: Denies snoring loudly Denies feeling tired, fatigued, or sleepy during the daytime Has not been observed to stop breathing or choking/gasping during sleep Denies having high blood pressure BMI less than or equal to 35 kg/m^2 Patient 50 years old or younger Does not have a large neck Non-male patient STOP-Bang Score: 0 I - PHYSICAL EVALUATION AIRWAY Patient intubated: No. Tracheostomy tube not present Mallampati: I. TM distance: >3 FB. Neck ROM: full ROM without neurological symptoms. Mouth opening: adequate. Short neck: no. Additional comments: +Right sided neck pain/tightness. Thick neck: no Hutchison present: no Lip Bite Test: I Microretrognathia/Micronagthia/Rec essed Chin: No DENTAL Normal dental observations. II - ANESTHESIA PLAN Anesthetic plan additional comments: *[facility]/TCI - anesthesia choice. Beta Santo Monitoring Plan Post Procedure Analgesic Plan Prepared for Surgery: optimally prepared for surgery. This patient was seen the day before surgery in [facility]. CONSULTS: Patient does not require consults for optimization at this time Planned Anesthetic: anesthesia choice The Following Tests/Procedures Have Been Initiated: No orders of the defined types were placed in this encounter. REASON FOR VISIT: Yolande Gomes is a 43 year old female who is scheduled for Procedure(s): MASTECTOMY SIMPLE BILATERAL (Bilateral) INTRAOPERATIVE ID OF SENTINEL LYMPH NODE(S) INCL'D INJECTION OF NON-RAD DYE WHEN PERFORMED (Right) BIOPSY NODE SENTINEL AXILLARY (Right) TISSUE PLASTER TENDER PLACEMENT IN BREAST RECONSTRUCTION BILATERAL (Bilateral) IMPLANTATION OF BIOLOGIC IMPLANT FOR SOFT TISSUE REINFORCEMENT (Bilateral) at the request of Pradeep Lucia MD for consultation. My final recommendation will be communicated back to the requesting physician by way of shared medical record or letter. Subjective The patient has the following: COVID-19 Immunization Status Current Care Gaps Covid-19 Vaccine () Overdue since 10/26/2023 12/29/2020 Imm Admin: COVID-19 original vaccine, age 12+ yr, monovalent (PFIZER-BIONTECH - PURPLE TOP) 06/21/2020 Imm Admin: COVID-19 original vaccine, age 12+ yr, monovalent (PFIZER-BIONTECH - PURPLE TOP) 05/31/2020 Imm Admin: COVID-19 original vaccine, age 12+ yr, monovalent (PFIZER-BIONTECH - PURPLE TOP) Only the first 3 history entries have been loaded, but more history exists. CHIEF COMPLAINT: Preoperative Examination HPI: 43 year old female patient presents today with ductal carcinoma in situ of right breast. Patient was initially seen in the breast center for right bloody nipple discharge on 05/10/24 that occurred first in December 2023. Patient had 2 occurrences of bloody nipple discharge, the second being in February 2024. 04/13/24: MRI breast noted abnormal non mass enhancement of 2.3cm. L breast unremarkable. 05/2024 right DCIS ER PENDING% Grade 2 Prognostic Stage 0 [Tis N0 M0 ] breast cancer. Cancer Staging Carcinoma in situ of right breast Staging form: Breast, AJCC 8th Edition - Clinical stage from 06/01/2024: Stage 0 (cTis (DCIS), cN0, cM0, G2) - Unsigned Patient is scheduled for bilateral mastectomy on 06/16/[address] Taylor Right skin-sparing mastectomy with R Lawton Lymph node biopsy, Left prophylactic skin-sparing mastectomy as next step in treatment the above procedure is recommended. Patient is agreeable and would like to proceed. REVIEW OF SYSTEMS: General: No weight loss, malaise or fevers. Neurological: Positive for: headaches. Negative for: cerebral palsy, AUTOMOBILE PARKER tumor, delirium, dementia, hemiplegia, impaired sensorium, multiple sclerosis, paraplegia, Parkinson's disease, peripheral neuropathy, quadriplegia, seizures, TIA and strokes. Respiratory: No history of current cough or dyspnea, or pneumonia in the past 6 weeks. No history of respiratory/pulmonary symptoms or problems. Cardiovascular: No history of HTN requiring medication, no history of angina, CHF, CO, cardiac surgery or stents. Denies rest pain, gangrene or revascularization/amputation for PVD. No history of cardiovascular symptoms or problems. GI: No history of GI symptoms or problems. No history of esophageal varices, recent ascites, or ETOH greater than 2 drinks per day. : No history of dysuria, frequency or incontinence, stones or chronic kidney disease. No difficulty urinating, nocturia > 1 time per night or hematuria. 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 Endocrine: Positive for: hypothyroidism. Negative for: diabetes mellitus. Hematology: No history of bleeding or clotting disorder. Patient is not taking anti-coagulation or platelet medications. No history of hematological symptoms or problems. Oncology: See HPI. Psych: Positive for: anxiety and bipolar disorder. Negative for: ADD, ADHD, depression, drug dependency and Marijuana Use. Musculoskeletal: Negative for joint pain or swelling, back pain or muscle pain. Skin: Negative for lesions, rash and itching. Implanted Devices: No implanted devices. PAST MEDICAL HISTORY Diagnosis Date Acne On spironolactone Anxiety Dysmenorrhea Dyspareunia Hypothyroidism also known nodule Migraines Papanicolaou smear of cervix with low grade squamous intraepithelial lesion (LGSIL) 02/24/2006 PMH - PAST MEDICAL HISTORY OF bipolar, borderline personality disorder PAST SURGICAL HISTORY Procedure Laterality Date PAST SURGICAL HISTORY OF tonsils PAST SURGICAL HISTORY OF D&C 2017 and 2020 FAMILY HISTORY Problem Relation Age of Onset other (multiple myeloma) Paternal Aunt Hypertension Maternal Grandmother Cancer Maternal Grandfather Lung cancer, history of tobacco use Esophageal Cancer Paternal Grandmother Heart Paternal Grandfather Stroke Paternal Grandfather Anesthesia Problems No Family History Social History Tobacco Use Smoking status: Never Smokeless tobacco: Former Types: Chew Quit date: 2009 Tobacco comments: For 3 years. Quit in 2009 Substance Use Topics Alcohol use: Yes Comment: monthly/social 2-3 drink mixed drink Drug use: No Prior to Admission medications as of 06/15/24 1026 Medication Sig Last Dose Taking FLUoxetine (PROZAC) 40 mg capsule Take 50 mg by mouth once daily. Yes levothyroxine (SYNTHROID) 100 mcg tablet Take 1 tablet on 5 days of the week, skip on 2 days of the week (may be Friday and Friday) Yes eletriptan (RELPAX) 40 mg tablet TAKE 1 TABLET NEEDED FOR MIGRAINE HEADACHE (SEE ADMINISTRATION INSTRUCTIONS) AT THE ONSET OF MIGRAINE HEADACHE (1 IN 24 HOURS) Yes Magnesium 200 mg tab Take by mouth. Yes SEMAGLUTIDE, WEIGHT LOSS, SUBCUTANEOUS Inject 70 Units subcutaneously one time a week. Yes spironolactone (ALDACTONE) 50 mg tablet Yes No medication comments found. ALLERGIES Allergen Reactions Penicillins Anaphylaxis Objective PHYSICAL EXAM: General: alert and oriented and healthy appearance. Pertinent negatives noted - not distressed. Skin: normal color, no rash or lesions. HEENT: EOM intact, pupils equal round and pupils reactive to light. Pertinent negatives noted - no cervical lymphadenopathy and no carotid bruit. No additional findings for patient's eyes, ears, nose, throat or neck. Cardiovascular: regular rate and rhythm, normal S1 and S2, no rub, murmurs, or gallop. Respiratory: normal breath sounds, no wheezes or crackles. No chest wall deformity or tenderness. Abdomen: bowel sounds present and soft. Pertinent negatives noted - not tender. Extremities: no deformity, no edema or tenderness, no joint swelling or clubbing. Neurological: normal cognition and motor skills. Gait normal. No weakness or sensory deficit. PAIN ASSESSMENT: Pain Pain Level: 5 Pain Location: Breast-Right Description: Sharp Duration Units: Weeks Frequency: Intermittent VITALS: BP 117/76 Pulse 92 Temp (Src) 98.6 (Temporal) Ht 5' 3 (1.60m) Wt 161 lb 9.6 oz (73.3kg) SpO2 98% LMP 05/24/2024 BMI 28.63 kg/(m^2). Diagnostic tests reviewed for today's visit: Lab Value Units Date High Low HB 14.5 g/dL 05/31/2024 15.5 11.5 HCT 44.0 % 05/31/2024 46.0 36.0 WBC 7.45 k/uL 05/31/2024 11.00 3.70 PLT 322 k/uL 05/31/2024 400 150 NA 138 mmol/L 05/31/2024 144 136 K 4.5 mmol/L 05/31/2024 5.1 3.7 GLUC 90 mg/dL 05/31/2024 99 74 BUN 10 mg/dL 05/31/2024 21 7 CREAT 0.78 mg/dL 05/31/2024 0.96 0.58 PTSEC No results within date range. INR No results within date range. APTT No results within date range. ALT 13 U/L 05/31/2024 38 7 AST 15 U/L 05/31/2024 35 13 TBILI 0.8 mg/dL 05/31/2024 1.3 0.2 TSH 0.338 mIU/L 05/03/2024 4.200 0.270 Lab Value Units Date High Low HCGQT No results within date range. UHCG No results within date range. HCG, BODY* No results within date range. Lab Value Units Date High Low ABORHD No results within date range. ABSCREEN No results within date range. Hemoglobin A1C (%) Date Value 01/18/2022 5.0 02/04/2014 5.4 Recent Results (from the past 8760 hours) ECG COMPLETE Collection Time: 06/15/24 9:52 AM Result Value Ventricular Rate 88 Atrial Rate 88 P-R Interval 154 QRS Duration 70 QT Interval 360 QTC Calculation (Bazett) 435 Calculated P Caldwell 51 Calculated R Caldwell 60 Calculated T Caldwell 48 Impression NORMAL SINUS RHYTHM LOW VOLTAGE QRS, CONSIDER PULMONARY DISEASE, PERICARDIAL EFFUSION, OR NORMAL VARIANT BORDERLINE ECG No results found for this or any previous visit (from the past 79943 hours). Instructions Given to Patient: Instructions located in the after visit summary. Patient given verbal and written preop instructions and voices comprehension and compliance. SIGNATURE: Tor Acevedo APRN.CNP PATIENT NAME: Yolande Gomes DATE: June 15, 2024 TIME: 6:08 AM PAGER/CONTACT #: T [facility] 06-15-2024 History and physical note Images from the original note were not included. [facility] HISTORY AND PHYSICAL EXAMINATION SERVICE DATE: 06/15/2024 SERVICE TIME: 10:44 AM PRIMARY CARE PHYSICIAN: Isabela Olivera APRN.CNP Assessment Patient has the following medical conditions which may affect valentina-operative course: Hypothyroidism, acquired Controlled on Synthroid Anxiety Controlled on Prozac Migraines Controlled with prn use of Relpax. ANESTHESIA FINDINGS: Intubation History: No history of difficult intubation. No abnormal airway history Significant Anesthesia Considerations: US guided in the past potential difficult IV/vein access Airway History: No history of difficult airway No abnormal airway history Odonnell Activity Status Index: METS: Walk indoors, such as around the house (1.75 METs) Do light work around the house, such as dusting or washing dishes (2.70 METs) Take care of self; that is eating, dressing, bathing, using the toilet (2.75 METs) Walk a block or two on level ground (2.75 METs) Do moderate work around the house, such as vacuuming, sweeping floors, or carrying in groceries (3.50 METs) Do yardwork, such as raking leaves, weeding, or pushing a power mower (4.50 METs) Climb a flight of stairs or walk up a hill (5.50 METs) DASI Score: 23.45 Patient denies any chest pain or undue shortness of breath with the above physical activity. STOP-Bang Score: Denies snoring loudly Denies feeling tired, fatigued, or sleepy during the daytime Has not been observed to stop breathing or choking/gasping during sleep Denies having high blood pressure BMI less than or equal to 35 kg/m^2 Patient 50 years old or younger Does not have a large neck Non-male patient STOP-Bang Score: 0 I - PHYSICAL EVALUATION AIRWAY Patient intubated: No. Tracheostomy tube not present Mallampati: I. TM distance: >3 FB. Neck ROM: full ROM without neurological symptoms. Mouth opening: adequate. Short neck: no. Additional comments: +Right sided neck pain/tightness. Thick neck: no Hutchison present: no Lip Bite Test: I Microretrognathia/Micronagthia/Rec essed Chin: No DENTAL Normal dental observations. II - ANESTHESIA PLAN Anesthetic plan additional comments: *[facility] - anesthesia choice. Beta Santo Monitoring Plan Post Procedure Analgesic Plan Prepared for Surgery: optimally prepared for surgery. This patient was seen the day before surgery in [facility]. CONSULTS: Patient does not require consults for optimization at this time Planned Anesthetic: anesthesia choice The Following Tests/Procedures Have Been Initiated: No orders of the defined types were placed in this encounter. REASON FOR VISIT: Yolande Gomes is a 43 year old female who is scheduled for Procedure(s): MASTECTOMY SIMPLE BILATERAL (Bilateral) INTRAOPERATIVE ID OF SENTINEL LYMPH NODE(S) INCL'D INJECTION OF NON-RAD DYE WHEN PERFORMED (Right) BIOPSY NODE SENTINEL AXILLARY (Right) TISSUE PLASTER TENDER PLACEMENT IN BREAST RECONSTRUCTION BILATERAL (Bilateral) IMPLANTATION OF BIOLOGIC IMPLANT FOR SOFT TISSUE REINFORCEMENT (Bilateral) at the request of Pradeep Lucia MD for consultation. My final recommendation will be communicated back to the requesting physician by way of shared medical record or letter. Subjective The patient has the following: COVID-19 Immunization Status Current Care Gaps Covid-19 Vaccine () Overdue since 10/26/2023 12/29/2020 Imm Admin: COVID-19 original vaccine, age 12+ yr, monovalent (PFIZER-BIONTECH - PURPLE TOP) 06/21/2020 Imm Admin: COVID-19 original vaccine, age 12+ yr, monovalent (PFIZER-BIONTECH - PURPLE TOP) 05/31/2020 Imm Admin: COVID-19 original vaccine, age 12+ yr, monovalent (PFIZER-BIONTECH - PURPLE TOP) Only the first 3 history entries have been loaded, but more history exists. CHIEF COMPLAINT: Preoperative Examination HPI: 43 year old female patient presents today with ductal carcinoma in situ of right breast. Patient was initially seen in the breast center for right bloody nipple discharge on 05/10/24 that occurred first in December 2023. Patient had 2 occurrences of bloody nipple discharge, the second being in February 2024. 04/13/24: MRI breast noted abnormal non mass enhancement of 2.3cm. L breast unremarkable. 05/2024 right DCIS ER PENDING% Grade 2 Prognostic Stage 0 [Tis N0 M0 ] breast cancer. Cancer Staging Carcinoma in situ of right breast Staging form: Breast, AJCC 8th Edition - Clinical stage from 06/01/2024: Stage 0 (cTis (DCIS), cN0, cM0, G2) - Unsigned Patient is scheduled for bilateral mastectomy on 06/16/[address] Taylor Right skin-sparing mastectomy with R Lawton Lymph node biopsy, Left prophylactic skin-sparing mastectomy as next step in treatment the above procedure is recommended. Patient is agreeable and would like to proceed. REVIEW OF SYSTEMS: General: No weight loss, malaise or fevers. Neurological: Positive for: headaches. Negative for: cerebral palsy, AUTOMOBILE PARKER tumor, delirium, dementia, hemiplegia, impaired sensorium, multiple sclerosis, paraplegia, Parkinson's disease, peripheral neuropathy, quadriplegia, seizures, TIA and strokes. Respiratory: No history of current cough or dyspnea, or pneumonia in the past 6 weeks. No history of respiratory/pulmonary symptoms or problems. Cardiovascular: No history of HTN requiring medication, no history of angina, CHF, CO, cardiac surgery or stents. Denies rest pain, gangrene or revascularization/amputation for PVD. No history of cardiovascular symptoms or problems. GI: No history of GI symptoms or problems. No history of esophageal varices, recent ascites, or ETOH greater than 2 drinks per day. : No history of dysuria, frequency or incontinence, stones or chronic kidney disease. No difficulty urinating, nocturia > 1 time per night or hematuria. 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 Endocrine: Positive for: hypothyroidism. Negative for: diabetes mellitus. Hematology: No history of bleeding or clotting disorder. Patient is not taking anti-coagulation or platelet medications. No history of hematological symptoms or problems. Oncology: See HPI. Psych: Positive for: anxiety and bipolar disorder. Negative for: ADD, ADHD, depression, drug dependency and Marijuana Use. Musculoskeletal: Negative for joint pain or swelling, back pain or muscle pain. Skin: Negative for lesions, rash and itching. Implanted Devices: No implanted devices. PAST MEDICAL HISTORY Diagnosis Date Acne On spironolactone Anxiety Dysmenorrhea Dyspareunia Hypothyroidism also known nodule Migraines Papanicolaou smear of cervix with low grade squamous intraepithelial lesion (LGSIL) 02/24/2006 PMH - PAST MEDICAL HISTORY OF bipolar, borderline personality disorder PAST SURGICAL HISTORY Procedure Laterality Date PAST SURGICAL HISTORY OF tonsils PAST SURGICAL HISTORY OF D&C 2017 and 2020 FAMILY HISTORY Problem Relation Age of Onset other (multiple myeloma) Paternal Aunt Hypertension Maternal Grandmother Cancer Maternal Grandfather Lung cancer, history of tobacco use Esophageal Cancer Paternal Grandmother Heart Paternal Grandfather Stroke Paternal Grandfather Anesthesia Problems No Family History Social History Tobacco Use Smoking status: Never Smokeless tobacco: Former Types: Chew Quit date: 2009 Tobacco comments: For 3 years. Quit in 2009 Substance Use Topics Alcohol use: Yes Comment: monthly/social 2-3 drink mixed drink Drug use: No Prior to Admission medications as of 06/15/24 1026 Medication Sig Last Dose Taking FLUoxetine (PROZAC) 40 mg capsule Take 50 mg by mouth once daily. Yes levothyroxine (SYNTHROID) 100 mcg tablet Take 1 tablet on 5 days of the week, skip on 2 days of the week (may be Friday and Friday) Yes eletriptan (RELPAX) 40 mg tablet TAKE 1 TABLET NEEDED FOR MIGRAINE HEADACHE (SEE ADMINISTRATION INSTRUCTIONS) AT THE ONSET OF MIGRAINE HEADACHE (1 IN 24 HOURS) Yes Magnesium 200 mg tab Take by mouth. Yes SEMAGLUTIDE, WEIGHT LOSS, SUBCUTANEOUS Inject 70 Units subcutaneously one time a week. Yes spironolactone (ALDACTONE) 50 mg tablet Yes No medication comments found. ALLERGIES Allergen Reactions Penicillins Anaphylaxis Objective PHYSICAL EXAM: General: alert and oriented and healthy appearance. Pertinent negatives noted - not distressed. Skin: normal color, no rash or lesions. HEENT: EOM intact, pupils equal round and pupils reactive to light. Pertinent negatives noted - no cervical lymphadenopathy and no carotid bruit. No additional findings for patient's eyes, ears, nose, throat or neck. Cardiovascular: regular rate and rhythm, normal S1 and S2, no rub, murmurs, or gallop. Respiratory: normal breath sounds, no wheezes or crackles. No chest wall deformity or tenderness. Abdomen: bowel sounds present and soft. Pertinent negatives noted - not tender. Extremities: no deformity, no edema or tenderness, no joint swelling or clubbing. Neurological: normal cognition and motor skills. Gait normal. No weakness or sensory deficit. PAIN ASSESSMENT: Pain Pain Level: 5 Pain Location: Breast-Right Description: Sharp Duration Units: Weeks Frequency: Intermittent VITALS: BP 117/76 Pulse 92 Temp (Src) 98.6 (Temporal) Ht 5' 3 (1.60m) Wt 161 lb 9.6 oz (73.3kg) SpO2 98% LMP 05/24/2024 BMI 28.63 kg/(m^2). Diagnostic tests reviewed for today's visit: Lab Value Units Date High Low HB 14.5 g/dL 05/31/2024 15.5 11.5 HCT 44.0 % 05/31/2024 46.0 36.0 WBC 7.45 k/uL 05/31/2024 11.00 3.70 PLT 322 k/uL 05/31/2024 400 150 NA 138 mmol/L 05/31/2024 144 136 K 4.5 mmol/L 05/31/2024 5.1 3.7 GLUC 90 mg/dL 05/31/2024 99 74 BUN 10 mg/dL 05/31/2024 21 7 CREAT 0.78 mg/dL 05/31/2024 0.96 0.58 PTSEC No results within date range. INR No results within date range. APTT No results within date range. ALT 13 U/L 05/31/2024 38 7 AST 15 U/L 05/31/2024 35 13 TBILI 0.8 mg/dL 05/31/2024 1.3 0.2 TSH 0.338 mIU/L 05/03/2024 4.200 0.270 Lab Value Units Date High Low HCGQT No results within date range. UHCG No results within date range. HCG, BODY* No results within date range. Lab Value Units Date High Low ABORHD No results within date range. ABSCREEN No results within date range. Hemoglobin A1C (%) Date Value 01/18/2022 5.0 02/04/2014 5.4 Recent Results (from the past 8760 hours) ECG COMPLETE Collection Time: 06/15/24 9:52 AM Result Value Ventricular Rate 88 Atrial Rate 88 P-R Interval 154 QRS Duration 70 QT Interval 360 QTC Calculation (Bazett) 435 Calculated P Caldwell 51 Calculated R Caldwell 60 Calculated T Caldwell 48 Impression NORMAL SINUS RHYTHM LOW VOLTAGE QRS, CONSIDER PULMONARY DISEASE, PERICARDIAL EFFUSION, OR NORMAL VARIANT BORDERLINE ECG No results found for this or any previous visit (from the past 62551 hours). Instructions Given to Patient: Instructions located in the after visit summary. Patient given verbal and written preop instructions and voices comprehension and compliance. SIGNATURE: Tor Acevedo APRN.CNP PATIENT NAME: Yolande Gomes DATE: June 15, 2024 TIME: 6:08 AM PAGER/CONTACT #: documented in this encounter [facility] 06-15-2024 Instructions Tor Acevedo APRN.CNP - 06/15/2024 10:26 AM EDT Images from the original note were not included. [facility] PATIENT PREOPERATIVE INSTRUCTIONS Pradeep Taylor MD has scheduled you for your procedure at this surgery center: [facility] [place] Scheduling Office: [phone] --[address] [place] [address]. Please read below carefully for your personalized instructions. Dietary Restrictions: - No solid food after midnight. - You may have 12 ounces of clear liquids (water, clear juices such as apple juice or gatorade, carbonated beverages, clear tea, black coffee, jello) until 2 hours before scheduled arrival at facility. - Do not drink any alcohol after midnight the night before your surgery. Medications: Unless instructed differently below, stay on all of your medications until your surgery. If you start any new medications after today's visit, please contact your surgeon. Pre-Surgery Med Instructions Medication Instructions FLUoxetine (PROZAC) 40 mg capsule Use day of surgery. levothyroxine (SYNTHROID) 100 mcg tablet Use day of surgery. eletriptan (RELPAX) 40 mg tablet Do not take the day of surgery Magnesium 200 mg tab Do not take the day of surgery SEMAGLUTIDE, WEIGHT LOSS, SUBCUTANEOUS Hold 7 days before surgery. Last dose 06/06/24. spironolactone (ALDACTONE) 50 mg tablet Do not take the day of surgery If you start any new medications after today's visit, please contact the surgeon's office. If you are currently using a [id number] injectable or oral medication for diabetes or weight loss such as Dulaglutide (Trulicity), Exenatide (Byetta, Bydureon), Liraglutide (Victoza, Saxenda), Semaglutide (Ozempic, Wegovy, Rybelsus), or Tirzepatide (Mounjaro), the medicine should be stopped at least 7 days before surgery. These medicines can cause food to remain in your stomach for a very long time and increase the risks from surgery and anesthesia. Not stopping the medication for a long enough time may result in your surgery being rescheduled. Blood Thinning Medications: - Stop NSAIDS (Ibuprofen, Advil, Aleve, Motrin, Celebrex, Mobic, etc.) 7 days before surgery, as directed by your surgeon. - Stop ALL herbal and dietary supplements 7 days before surgery. - You may take Tylenol (Acetaminophen) or any of your pain medications that do not contain aspirin or NSAIDS as needed. Important Reminders: - Candy, mints, and tobacco products are NOT permitted the morning of surgery. - Hearing aids, dentures and glasses may be worn the morning of surgery. - NO jewelry, body piercings, makeup, hairpins or contacts are to be worn the day of surgery. If you develop symptoms such as a fever, cold, or flu, or have other changes to your health within TWO DAYS of scheduled surgery or the morning of surgery, please contact the surgery center above. Personal Belongings: -Please have photo ID and insurance cards. -If you do not have a copy of advance directives on file with us, please bring a copy with you on the day of surgery. - Leave ALL valuables and money at home or with family members. - Please bring high-quality footwear, such as sneakers, to the hospital for ambulating post-surgery. For Outpatient Procedures: - YOU MUST HAVE A RESPONSIBLE PIERCING MILL OPERATOR TAKE YOU HOME. A FILM TESTS CHECKER OR SLIP MAKER CANNOT BE MADE A RESPONSIBLE PIERCING MILL OPERATOR. - We recommend that a responsible person stays with you overnight to take care of you. - You cannot stay in a hotel alone after outpatient surgery. You will not be permitted to have your surgery, if you do not have someone to take care of you. Arrival Time for Surgery: - To obtain your arrival time for surgery, call your physician's office the day before your surgery. - If you have received different instructions about finding out your arrival time from your surgeon, please follow those instructions. - If your surgery is scheduled for Friday, call the Friday before. Your surgeon s sound technician supervisor will tell you what time to call the office. - If you have not reached the departmental sound technician supervisor by 5 P.M., call [phone] after 5 P.M. the day before your surgery. Please be aware that emergency situations arise, which may delay or change your surgical time. If this happens, we will notify you as soon as possible and regret any inconvenience. If you already have an Advance Directive, please fax a copy to [phone] or email to for it to be added to your chart. If you do not have an Advance Directive, you can find the appropriate form and more information at [email or web address]. We recommend that you complete the Advance Directive form found on the website and bring it with you the day of your surgery. It can be witnessed and scanned into your chart that day. documented in this encounter [facility] 06-08-2024 Telephone encounter Note Pt is scheduled with Dr Fairbanks on 06/23/24 (made on 06/03) so no need to schedule here unless that changes. [facility] 06-08-2024 Miscellaneous Notes Pt is scheduled with Dr Fairbanks on 06/23/24 (made on 06/03) so no need to schedule here unless that changes. Called patient no answer and unable to leave vm due to mailbox being full. Leslie oCwart Please try again to reach patient to schedule consultation per below note. Thank you. Received email to schedule Radiation Consult. Order in Epic. 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 Called patient to schedule, Unable to leave message. Voicemail full. documented in this encounter [facility] 06-07-2024 Telephone encounter Note Called patient no answer and unable to leave due to mailbox being full. Leslie Cowart [facility] 06-07-2024 Telephone encounter Note Please try again to reach patient to schedule consultation per below note. Thank you. [facility] 06-07-2024 Telephone encounter Note Called and spoke with patient. Reviewed hormone receptor status returned as ER+ (95%). Patient appreciative of call. Lakisha Leal PA-C [facility] Work Phone: 06-07-2024 Miscellaneous Notes Called and spoke with patient. Reviewed hormone receptor status returned as ER+ (95%). Patient appreciative of call. Lakisha Leal PA-C documented in this encounter [facility] 06-03-2024 Note HNO ID: [id number] Author: ANA CASTILLO ST Service: ? Author Type: Surg Apartment Maintenance Worker Type: Progress Notes Filed: 06/03/2024 11:43 Note Text: DATE OF PHOTOS: 06/03/2024 Body Part: Breasts ST SLAVA June 03, 2024 11:43 AM [facility] 06-03-2024 History of Present illness Narrative DATE OF PHOTOS: 06/03/2024 Body Part: Breasts ST SLAVA June 03, 2024 11:43 AM documented in this encounter [facility] 06-03-2024 History of Present illness Narrative BREAST RECONSTRUCTION EVALUATION CC: Breast Reconstruction Evaluation. HPI: Yolande D Gamertsfelder is a 43 year old female that presents today for breast reconstruction evaluation. Patient is scheduled for bilateral mastectomy on 06/16/[address] Taylor Right skin-sparing mastectomy with R Lawton Lymph node biopsy, Left prophylactic skin-sparing mastectomy Patient was initially seen in the breast center for right bloody nipple discharge on 05/10/24 that occurred first in December 2023. Patient had 2 occurrences of bloody nipple discharge, the second being in February 2024. Genetic Testing: Completed, results are pending, referral placed by Dr Taylor Prior Breast Procedures: Denies Prior Abdominal Surgery: Denies Hx Radiation Therapy: No Hx Chemotherapy: No Waiting to see if cancer is contained PRIOR MAMMOGRAM: Yes, date: 05/10/24, results: MAMMOGRAM FINDINGS: The breasts are heterogeneously dense, which may obscure small masses. The right mammogram is negative in the upper outer quadrant and at the site of focal pain at 11 o'clock 3 cm from the nipple. Finding 1: There are no suspicious mammographic findings to correspond with the bloody nipple discharge in the right breast. Finding 2: There are no suspicious mammographic findings to correspond with the non-bloody nipple discharge in the left breast. ULTRASOUND FINDINGS: IMPRESSION: Finding 1: The 0.6 x 0.2 x 0.2 cm intraductal mass in the right breast is suspicious for malignancy. Ultrasound-guided biopsy is recommended. The patient scheduled a right ultrasound biopsy as she left today and signed electronic informed consent. Finding 2: There is no suspicious imaging finding to correspond with the non-bloody nipple discharge in the left breast. Return to annual screening mammogram is recommended. Annual mammogram will be due in 1 year. 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 GENERAL: No weight loss, malaise or fevers HEENT: Negative for frequent or significant headaches, No changes in hearing or vision, no nose bleeds or other nasal problems NECK: Negative for lumps, goiter, pain and significant neck swelling RESPIRATORY: Negative for cough, hemoptysis, wheezing, COPD, dyspnea or shortness of breath CARDIOVASCULAR: Negative for chest pain, leg swelling, hypertension, CHF or palpitations PMH: PAST MEDICAL HISTORY Diagnosis Date Acne On spironolactone Anxiety Dysmenorrhea Dyspareunia Hypothyroidism also known nodule Migraines Papanicolaou smear of cervix with low grade squamous intraepithelial lesion (LGSIL) 02/24/2006 PMH - PAST MEDICAL HISTORY OF bipolar, borderline personality disorder PSH: PAST SURGICAL HISTORY Procedure Laterality Date PAST SURGICAL HISTORY OF tonsils PAST SURGICAL HISTORY OF D&C 2017 and 2020 MEDS: Current Outpatient Medications Medication Sig Dispense Refill FLUoxetine (PROZAC) 40 mg capsule Take 40 mg by mouth once daily. levothyroxine (SYNTHROID) 100 mcg tablet Take 1 tablet on 5 days of the week, skip on 2 days of the week (may be Friday and Friday) 65 tablet 1 eletriptan (RELPAX) 40 mg tablet TAKE 1 TABLET NEEDED FOR MIGRAINE HEADACHE (SEE ADMINISTRATION INSTRUCTIONS) AT THE ONSET OF MIGRAINE HEADACHE (1 IN 24 HOURS) 12 tablet 19 Magnesium 200 mg tab Take by mouth. SEMAGLUTIDE, WEIGHT LOSS, SUBCUTANEOUS Inject 70 Units subcutaneously one time a week. spironolactone (ALDACTONE) 50 mg tablet No current facility-administered medications for this visit. EXAM: BP 114/71 Pulse 89 Temp 36.2 C (97.1 F) (Temporal) Ht 162 cm (5' 3.78) Wt 72.6 kg (160 lb) LMP 05/24/2024 (Exact Date) BMI 27.65 kg/m Body mass index is 27.65 kg/m . 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 The oncologic treatment plan includes bilateral mastectomy and postop chemo/postop radiation will depend on final pathology An extensive discussion was undertaken with the patient detailing the risks, benefits and alternatives to all types of reconstruction. The effects of radiation on breast reconstruction, should that become a necessary part of her treatment, were discussed. The patient verbalized understanding of these risks. All questions were fully answered. During mastectomy, nerves are transected and removed with the breast tissue. As a result, breast neurotization will be required to address the functional sensory deficit. Discussed with patient that the chances for your body to reject an implant is low. Discussed with patient that if nipple looks good she can keep left nipple. Plan is to have tissue bundler seasonal greenery placement following mastectomy Will have a drain in bilateral breasts following surgery and will be on an antibiotic for 1 week. Photographs have been taken and will be sent to the insurance company as necessary. Yolande Leonard Gomes was given supplemental information on breast reconstruction. I have advised her to contact me at any time with further questions she may have regarding breast reconstruction. Patient on Prozac. Recommended to follow up with ordering provider to make sure that medication does not need to be adjusted. Consent obtained today Approximate tissue bundler seasonal greenery size or implant size: 133 mv 400-600 Matrix Support/ADM Size: 16 x 20 This plan will be coordinated with Dr. Dr. Pradeep aTylor. The patient is seen and examined by Dr. Isiah Messina and the following reflects his service. Scribed by Alicia Brown RN I agree with the Chief Complaint, ROS, and Past Histories independently gathered by the clinical patient support specialist and the remaining scribed note accurately describes my personal service to the patient. patient's condition reviewed and examined plan of care and options of management, complexity, risk benefit limitation potential complication, success /failure of management, expected result and recovery discussed Medical Decision Making: Problems: Moderate: New problem with uncertain prognosis Data: Unique test result(s) reviewed: 2 Independent interpretation of test from other physician/QHCP Risk: High: Decision on elective major surgery w/ risk factors Medical Decision Making Level: 4 - Moderate I spent a total of 35 minutes on the date of service which included preparing to see the patient, [id number] patient care, completing clinical documentation, obtaining & reviewing separately an obtained history, performing a medically appropriate examination, counseling & educating the patient/family/caregiver, ordering medications, tests, or procedures, communicating with other healthcare providers, independently interpreting the results, communicating results to the patient care team, and continued patient care coordination. This is included in the documentation noted above. Isiah Messina MD documented in this encounter [facility] 06-03-2024 Note HNO ID: [id number] Author: ISIAH MESSINA MD Service: ? Author Type: Physician Type: Progress Notes Filed: 06/12/2024 19:31 Note Text: BREAST RECONSTRUCTION EVALUATION CC: Breast Reconstruction Evaluation. HPI: Yolande Gomes is a 43 year old female that presents today for breast reconstruction evaluation. Patient is scheduled for bilateral mastectomy on 06/16/[address] Taylor Right skin-sparing mastectomy with R Lawton Lymph node biopsy, Left prophylactic skin-sparing mastectomy Patient was initially seen in the breast center for right bloody nipple discharge on 05/10/24 that occurred first in December 2023. Patient had 2 occurrences of bloody nipple discharge, the second being in February 2024. Genetic Testing: Completed, results are pending, referral placed by Dr Taylor Prior Breast Procedures: Denies Prior Abdominal Surgery: Denies Hx Radiation Therapy: No Hx Chemotherapy: No Waiting to see if cancer is contained PRIOR MAMMOGRAM: Yes, date: 05/10/24, results: MAMMOGRAM FINDINGS: The breasts are heterogeneously dense, which may obscure small masses. The right mammogram is negative in the upper outer quadrant and at the site of focal pain at 11 o'clock 3 cm from the nipple. Finding 1: There are no suspicious mammographic findings to correspond with the bloody nipple discharge in the right breast. Finding 2: There are no suspicious mammographic findings to correspond with the non-bloody nipple discharge in the left breast. ULTRASOUND FINDINGS: IMPRESSION: Finding 1: The 0.6 x 0.2 x 0.2 cm intraductal mass in the right breast is suspicious for malignancy. Ultrasound-guided biopsy is recommended. The patient scheduled a right ultrasound biopsy as she left today and signed electronic informed consent. Finding 2: There is no suspicious imaging finding to correspond with the non-bloody nipple discharge in the left breast. Return to annual screening mammogram is recommended. Annual mammogram will be due in 1 year. 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 GENERAL: No weight loss, malaise or fevers HEENT: Negative for frequent or significant headaches, No changes in hearing or vision, no nose bleeds or other nasal problems NECK: Negative for lumps, goiter, pain and significant neck swelling RESPIRATORY: Negative for cough, hemoptysis, wheezing, COPD, dyspnea or shortness of breath CARDIOVASCULAR: Negative for chest pain, leg swelling, hypertension, CHF or palpitations PMH: PAST MEDICAL HISTORY Diagnosis Date Acne On spironolactone Anxiety Dysmenorrhea Dyspareunia Hypothyroidism also known nodule Migraines Papanicolaou smear of cervix with low grade squamous intraepithelial lesion (LGSIL) 02/24/2006 PMH - PAST MEDICAL HISTORY OF bipolar, borderline personality disorder PSH: PAST SURGICAL HISTORY Procedure Laterality Date PAST SURGICAL HISTORY OF tonsils PAST SURGICAL HISTORY OF DANDC 2017 and 2020 MEDS: Current Outpatient Medications Medication Sig Dispense Refill FLUoxetine (PROZAC) 40 mg capsule Take 40 mg by mouth once daily. levothyroxine (SYNTHROID) 100 mcg tablet Take 1 tablet on 5 days of the week, skip on 2 days of the week (may be Friday and Friday) 65 tablet 1 eletriptan (RELPAX) 40 mg tablet TAKE 1 TABLET NEEDED FOR MIGRAINE HEADACHE (SEE ADMINISTRATION INSTRUCTIONS) AT THE ONSET OF MIGRAINE HEADACHE (1 IN 24 HOURS) 12 tablet 19 Magnesium 200 mg tab Take by mouth. SEMAGLUTIDE, WEIGHT LOSS, SUBCUTANEOUS Inject 70 Units subcutaneously one time a week. spironolactone (ALDACTONE) 50 mg tablet No current facility-administered medications for this visit. EXAM: BP 114/71 Pulse 89 Temp 36.2 ?C (97.1 ?F) (Temporal) Ht 162 cm (5' 3.78) Wt 72.6 kg (160 lb) LMP 05/24/2024 (Exact Date) BMI 27.65 kg/m? Body mass index is 27.65 kg/m?. 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 The oncologic treatment (more content not included)... [facility] 06-01-2024 Telephone encounter Note Received email to schedule Radiation Consult. Order in [facility]. RAD/ONC CONSULT Status: Needs Scheduling Requested appt date: 06/08/2024 Authorizing: Pradeep Taylor MD in [facility] 4 Referral: [id number] (Authorized) Expires: 06/01/2025 Priority: Routine Diagnosis: 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] 1st attempt. Called patient to schedule, Unable to leave message. Voicemail full. [facility] Work Phone: 06-01-2024 History of Present illness Narrative Images from the original note were not included. BREAST MEDICAL ONCOLOGY VISIT NOTE HISTORY AND PHYSICAL EXAMINATION PATIENT NAME: Yolande Gomes AGE: [age] year old CHIEF COMPLAINT: Breast Cancer as described below: PRIMARY CANCER: 05/2024 right DCIS ER PENDING% Grade 2 Prognostic Stage 0 [Tis N0 M0 ] breast cancer. Cancer Staging Carcinoma in situ of right breast Staging form: Breast, AJCC 8th Edition - Clinical stage from 06/01/2024: Stage 0 (cTis (DCIS), cN0, cM0, G2) - Unsigned CURRENT TREATMENT: None yet [No matching plan found] GENETICS: In process Menopausal status at the time of cancer diagnosis: Premenopausal Patient's last menstrual period was 05/24/2024 (exact date). ONCOLOGIC HISTORY: Oncology History No history exists. 11/2023: Unremarkable mammogram 12/2023 Nipple discharge 02/2024: bloody nipple discharge 04/13/24: MRI breast noted abnormal non mass enhancement of 2.3cm. L breast unremarkable. 05/10/24: Diagnostic Mammogram The breasts are heterogeneously dense, which may obscure small masses. The right mammogram is negative in the upper outer quadrant and at the site of focal pain at 11 o'clock 3 cm from the nipple. Finding 1: There are no suspicious mammographic findings to correspond with the bloody nipple discharge in the right breast. Finding 2: There are no suspicious mammographic findings to correspond with the non-bloody nipple discharge in the left breast. 05/10/24: BL US breasts RIGHT 05/10/2024 at 15:13:26 Addendum: Since imaging is negative in the right upper outer quadrant, right MRI biopsy is recommended. Discussed with Lissette Mcleod who will contact the patient. BI-RADS Category 4: Suspicious Finding 1: There is an intraductal mass measuring 0.6 x 0.2 x 0.2 cm in the right breast. Internal echotexture is hypoechoic. Color flow imaging demonstrates vascularity is present. Finding correlates to the bloody nipple discharge in the right breast. Ultrasound is negative in the right upper outer quadrant and at the site of focal pain at 11 o'clock 3 cm from the nipple. Finding 2: There are no suspicious sonographic findings to correspond with the non-bloody nipple discharge in the left breast. 05/20/24: Biopsy reported FINAL DIAGNOSIS A. Right breast at 10 o'clock, subareolar, ultrasound-guided core biopsy with Q-clip placement: - Minute fragments of fibrovascular and adipose tissue. - No breast ducts or intraductal lesion present for review. 05/27/24: Biopsy reported FINAL DIAGNOSIS A. 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 B. 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 INTERVAL HISTORY: Here to establish care. She plans a double mastectomy with recon. Review of Systems: Reviewed and otherwise negative PAST MEDICAL HISTORY Diagnosis Date Acne On spironolactone Anxiety Dysmenorrhea Dyspareunia Hypothyroidism also known nodule Migraines Papanicolaou smear of cervix with low grade squamous intraepithelial lesion (LGSIL) 02/24/2006 PMH - PAST MEDICAL HISTORY OF bipolar, borderline personality disorder PAST SURGICAL HISTORY Procedure Laterality Date PAST SURGICAL HISTORY OF tonsils PAST SURGICAL HISTORY OF D&C 2017 and 2020 Family History Problem Relation Age of Onset Hypertension Maternal Grandmother Cancer Maternal Grandfather Lung cancer, history of tobacco use Esophageal Cancer Paternal Grandmother Heart Paternal Grandfather Stroke Paternal Grandfather other (multiple myeloma) Paternal Aunt Social History Tobacco Use Smoking status: Never Smokeless tobacco: Former Types: Chew Tobacco comments: For 3 years. 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 Current Outpatient Medications Medication Sig Dispense Refill FLUoxetine (PROZAC) 40 mg capsule Take 40 mg by mouth once daily. levothyroxine (SYNTHROID) 100 mcg tablet Take 1 tablet on 5 days of the week, skip on 2 days of the week (may be Friday and Friday) 65 tablet 1 eletriptan (RELPAX) 40 mg tablet TAKE 1 TABLET NEEDED FOR MIGRAINE HEADACHE (SEE ADMINISTRATION INSTRUCTIONS) AT THE ONSET OF MIGRAINE HEADACHE (1 IN 24 HOURS) 12 tablet 19 Magnesium 200 mg tab Take by mouth. SEMAGLUTIDE, WEIGHT LOSS, SUBCUTANEOUS Inject 70 Units subcutaneously one time a week. spironolactone (ALDACTONE) 50 mg tablet No current facility-administered medications for this visit. ALLERGIES: Penicillins OBJECTIVE LMP 05/24/2024 (Exact Date) 28.12 kg/m2 PHYSICAL EXAMINATION There was no physical exam performed at today's visit. ECOG PERFORMANCE STATUS: 0- Fully active, able to carry on all pre-disease performance w/o restriction. LABS: NA Recent Labs 05/31/24 1035 WBC 7.45 HB 14.5 HCT 44.0 PLT 322 Recent Labs 05/31/24 1035 NA 138 K 4.5 CO2 25 BUN 10 CREAT 0.78 GLUC 90 Recent Labs 05/31/24 1035 ALB 4.5 TBILI 0.8 ALKPHOS 78 AST 15 ALT 13 TPROT 6.8 PATHOLOGY: As above IMAGING: As per above ASSESSMENT: This is a 43 year old female with a diagnosis of ER PENDING DCIS. She presents to establish care. Cancer Staging Carcinoma in situ of right breast Staging form: Breast, AJCC 8th Edition - Clinical stage from 06/01/2024: Stage 0 (cTis (DCIS), cN0, cM0, G2) - Unsigned PLAN Systemic Staging: Not indicated for DCIS. Local Treatment: Patient is established with Dr Taylor (breast surgery) Chemotherapy: Not indicated for DCIS. Endocrine Therapy: Will be recommended if there's any residual breast tissue and ER+ Genetics: in process Breast Cancer Screening: Depends on the type of surgery chosen. If BL mastectomy (as is planned) then no need for screening mammograms. Return to clinic: 1-2 weeks after surgery to discuss final pathology and adjuvant therapy. Appointments for Next 60 Days Date Time Provider Location Dept Phone 06/01/2024 1:00 PM JAIMEE RANDALL [facility] [phone] 06/11/2024 10:20 AM ISABELA OLIVERA [facility] [phone] 06/18/2024 8:30 AM CRISTAL COHN [facility] 06/30/2024 10:00 AM [phone] 1. Ductal carcinoma in situ (DCIS) of right breast - ICD9: 233.0, ICD10: D05.11 Jaimee Randall MD Associate Staff [facility] 06/01/2024 Discussed in detail with the patient the diagnosis with review of pathology, biomarkers, labs, imaging, stage, prognosis, natural history and treatment options. Answered all questions and addressed all concerns in detail. The patient voiced understanding of the recommendations. Encouraged to reach out with questions/concerns. I spent a total of 60 minutes on the date of the service which included preparing to see the patient, [id number] patient care, completing clinical documentation, obtaining and/or reviewing separately obtained history, performing a medically appropriate examination, counseling and educating the patient/family/caregiver, ordering medications, tests, or procedures, and communicating results to the patient/family/caregiver. documented in this encounter [facility] 06-01-2024 Note HNO ID: [id number] Author: JAIMEE RANDALL MD Service: ? Author Type: Physician Type: Progress Notes Filed: 06/01/2024 13:35 Note Text: BREAST MEDICAL ONCOLOGY VISIT NOTE HISTORY AND PHYSICAL EXAMINATION PATIENT NAME: Yolande Gomes AGE: [age] year old CHIEF COMPLAINT: Breast Cancer as described below: PRIMARY CANCER: 05/2024 right DCIS ER PENDING% Grade 2 Prognostic Stage 0 [Tis N0 M0 ] breast cancer. Cancer Staging Carcinoma in situ of right breast Staging form: Breast, AJCC 8th Edition - Clinical stage from 06/01/2024: Stage 0 (cTis (DCIS), cN0, cM0, G2) - Unsigned CURRENT TREATMENT: None yet [No matching plan found] GENETICS: In process Menopausal status at the time of cancer diagnosis: Premenopausal Patient's last menstrual period was 05/24/2024 (exact date). ONCOLOGIC HISTORY: Oncology History No history exists. 11/2023: Unremarkable mammogram 12/2023 Nipple discharge 02/2024: bloody nipple discharge 04/13/24: MRI breast noted abnormal non mass enhancement of 2.3cm. L breast unremarkable. 05/10/24: Diagnostic Mammogram The breasts are heterogeneously dense, which may obscure small masses. The right mammogram is negative in the upper outer quadrant and at the site of focal pain at 11 o'clock 3 cm from the nipple. Finding 1: There are no suspicious mammographic findings to correspond with the bloody nipple discharge in the right breast. Finding 2: There are no suspicious mammographic findings to correspond with the non-bloody nipple discharge in the left breast. 05/10/24: BL US breasts RIGHT 05/10/2024 at 15:13:26 Addendum: Since imaging is negative in the right upper outer quadrant, right MRI biopsy is recommended. Discussed with Lissette Mcleod who will contact the patient. BI-RADS Category 4: Suspicious Finding 1: There is an intraductal mass measuring 0.6 x 0.2 x 0.2 cm in the right breast. Internal echotexture is hypoechoic. Color flow imaging demonstrates vascularity is present. Finding correlates to the bloody nipple discharge in the right breast. Ultrasound is negative in the right upper outer quadrant and at the site of focal pain at 11 o'clock 3 cm from the nipple. Finding 2: There are no suspicious sonographic findings to correspond with the non-bloody nipple discharge in the left breast. 05/20/24: Biopsy reported FINAL DIAGNOSIS A. Right breast at 10 o'clock, subareolar, ultrasound-guided core biopsy with Q-clip placement: - Minute fragments of fibrovascular and adipose tissue. - No breast ducts or intraductal lesion present for review. 05/27/24: Biopsy reported FINAL DIAGNOSIS A. 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 B. 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 INTERVAL HISTORY: Here to establish care. She plans a double mastectomy with recon. Review of Systems: Reviewed and otherwise negative PAST MEDICAL HISTORY Diagnosis Date Acne On spironolactone Anxiety Dysmenorrhea Dyspareunia Hypothyroidism also known nodule Migraines Papanicolaou smear of cervix with low grade squamous intraepithelial lesion (LGSIL) 02/24/2006 PMH - PAST MEDICAL HISTORY OF bipolar, borderline personality disorder PAST SURGICAL HISTORY Procedure Laterality Date PAST SURGICAL HISTORY OF tonsils PAST SURGICAL HISTORY OF DANDC 2017 and 2020 Family History Problem Relation Age of Onset Hypertension Maternal Grandmother Cancer Maternal Grandfather Lung cancer, history of tobacco use Esophageal Cancer Paternal Grandmother Heart Paternal Grandfather Stroke Paternal Grandfather other (multiple myeloma) Paternal Aunt Social History Tobacco Use Smoking status: Never Smokeless tobacco: Former Types: Chew Tobacco comments: For 3 years. 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 Current Outpatient Medications Medication Sig Dispense Refill FLUoxetine (PROZAC) 40 mg capsule Take 40 mg by mouth once daily. levothyroxine (SYNTHROID) 100 mcg tablet Take 1 tablet on 5 days of the week, skip on 2 days of the week (may be Friday and Friday) 65 tablet 1 eletriptan (RELPAX) 40 mg tablet TAKE 1 TABLET NEEDED FOR MIGRAINE HEADACHE (SEE ADMINISTRATION INSTRUCTIONS) AT THE ONSET OF MIGRAINE HEADACHE (1 IN 24 HOURS) 12 tablet 19 Magnesium 200 mg tab Take by mouth. SEMAGLUTIDE, WEIGHT LOSS, SUBCUTANEOUS Inject 70 Units subcutaneously one time a week. spironolactone (ALDACTONE) 50 mg tablet No current facility-administered medications for this visit. ALLERGIES: (more content not included)... [facility] 05-31-2024 Telephone encounter Note Called patient and verified identity. We discussed her recent right breast biopsy results that showed DCIS (05/27/2024). She already met with Dr. Taylor this morning to discuss surgical treatment plan (05/31/2024). She is scheduled to meet with Dr. Randall in hematology/oncology tomorrow. I offered her a referral to breast psychology and she is amenable. She may contact me with any questions or concerns. Lissette Mcleod APRN.CNP May 31, 2024 15:29 [facility] 05-31-2024 Miscellaneous Notes Called patient and verified identity. We discussed her recent right breast biopsy results that showed DCIS (05/27/2024). She already met with Dr. Taylor this morning to discuss surgical treatment plan (05/31/2024). She is scheduled to meet with Dr. Randall in hematology/oncology tomorrow. I offered her a referral to breast psychology and she is amenable. She may contact me with any questions or concerns. Lissette Mcleod APRN.CNP May 31, 2024 15:29 documented in this encounter [facility] 05-31-2024 Note HNO ID: [id number] Author: NIKIA ROWLAND RN Service: ? Author Type: Registered Nurse Type: Progress Notes Filed: 05/31/2024 14:55 Note Text: AMBULATORY PATIENT EDUCATION NOTE TOPIC: SURVIVAL SKILLS: Complication Prevention Pain Management Wound Care READINESS TO LEARN COGNITIVE ABILITY: Alert and oriented MOTIVATION TO LEARN: Eager FAMILY SUPPORT: High - Very involved in pt care INSTRUCTION PROVIDED TO: Patient and Mother PATIENT LEARNS BEST BY: Multiple Methods FACTORS AFFECTING LEARNING: None PHYSICAL LIMITATIONS AFFECTING LEARNING: None LEARNING RESPONSE DIAGNOSIS: DCIS METHOD OF INSTRUCTION: Individual instruction Written instruction/Handouts Verbal instruction Video PATIENT / FAMILY RESPONSE: Verbalizes understanding of: INFECTION MANAGEMENT-Signs and symptoms of an infection and importance of contacting the physician PAIN MANAGEMENT-Effective strategies to manage pain in addition to pain medication PHYSICAL RESTRICTIONS-Physical restrictions and recommendations after discharge from the hospital POST-OPERATIVE INSTRUCTIONS-Correct actions to take to reduce postoperative complications PRE-OPERATIVE INSTRUCTIONS-Correct action to take to follow pre-operative instructions WORSENING CONDITION-Signs and symptoms of a worsening condition that warrant a call to the physician WOUND CARE-Correct procedure to perform wound care FOLLOW-UP PLAN: Complete - No need for follow-up Patient instructed to call with any further issues SUPPLEMENTAL MATERIAL: Brochures given to patient: BROCHURE breast surgery REFERRAL (RECOMMENDATION): None Hibiclens 4 ounce bottle given to patient with instruction. Electronically Signed By: Nikia Rowland RN In Department: HEMATOLOGY/ONCOLOGY Time spent on patient education: 30 minutes. [facility] 05-31-2024 History of Present illness Narrative AMBULATORY PATIENT EDUCATION NOTE TOPIC: SURVIVAL SKILLS: Complication Prevention Pain Management Wound Care READINESS TO LEARN COGNITIVE ABILITY: Alert and oriented MOTIVATION TO LEARN: Eager FAMILY SUPPORT: High - Very involved in pt care INSTRUCTION PROVIDED TO: Patient and Mother PATIENT LEARNS BEST BY: Multiple Methods FACTORS AFFECTING LEARNING: None PHYSICAL LIMITATIONS AFFECTING LEARNING: None LEARNING RESPONSE DIAGNOSIS: DCIS METHOD OF INSTRUCTION: Individual instruction Written instruction/Handouts Verbal instruction Video PATIENT / FAMILY RESPONSE: Verbalizes understanding of: INFECTION MANAGEMENT-Signs and symptoms of an infection and importance of contacting the physician PAIN MANAGEMENT-Effective strategies to manage pain in addition to pain medication PHYSICAL RESTRICTIONS-Physical restrictions and recommendations after discharge from the hospital POST-OPERATIVE INSTRUCTIONS-Correct actions to take to reduce postoperative complications PRE-OPERATIVE INSTRUCTIONS-Correct action to take to follow pre-operative instructions WORSENING CONDITION-Signs and symptoms of a worsening condition that warrant a call to the physician WOUND CARE-Correct procedure to perform wound care FOLLOW-UP PLAN: Complete - No need for follow-up Patient instructed to call with any further issues SUPPLEMENTAL MATERIAL: Brochures given to patient: BROCHURE breast surgery REFERRAL (RECOMMENDATION): None Hibiclens 4 ounce bottle given to patient with instruction. Electronically Signed By: Nikia Rowland RN In Department: HEMATOLOGY/ONCOLOGY Time spent on patient education: 30 minutes. documented in this encounter [facility] 05-31-2024 History of Present illness Narrative [facility] Department of Breast Surgical Oncology [facility] NEW BREAST CANCER - INITIAL SURGICAL VISIT SERVICE DATE: 05/31/2024 REFERRING PROVIDER: No referring provider defined for this encounter. Consult requested for an opinion regarding the evaluation and treatment of breast cancer. My final impression and recommendations will be communicated back to the requesting physician by way of the shared medical record or letter via US mail. SUBJECTIVE: REASON FOR TODAY'S VISIT: Breast Cancer Evaluation HISTORY of PRESENT ILLNESS: Yolande Gomes is a 43 year old female with a history significant for Hypothyroidism , no family history of breast or ovarian cancer, who presents for an evaluation of a new 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 Rt breast UOQ mid depth at least ADH. Stage 0, [id number]. Ms. Gomes was initially seen by Lissette Mcleod in the breast center for right bloody nipple discharge on 05/10/24. Per this clinic note, she first noted bloody nipple discharge in Dec 2023. This occurred again in Feb 2024, spontaneous, noted on tank top. Pressure to the breast will also lead to bloody discharge. Discharge is from multiple ducts. No Spontaneous Left nipple discharge with some non bloody discharge with pressure B/l screening MMG (12/12/23, per Lissette Mcleod 05/10/24 note): Scattered areas of fibroglandular density. No significant findings, changes from prior studies. BIRADS 2. MRI Breast (04/13/24, OSH): RIGHT breast 2.3 cm NME extending to base of the nipple. Additional posterior NME including UO mid depth 1.5 cm NME. LEFT breast no significant findings. No axillary or intramammary LAD. B/l diag MMG (05/10/24, [facility]): Heterogeneously dense breasts. RIGHT MMG is negative in UOQ 11:00 3 cmFN at site of focal pain. RIGHT breast no mammographic correlate to nipple discharge in Rt breast. LEFT breast no mammographic corrleate for non-bloody nipple discharge in the left breast. B/l breast US (05/10/24, [facility]): RIGHT breast intraductal 0.6 x 0.2 x 0.2 cm mass, correlates with nipple discharge in Rt breast. US CNBx recommended. Right breast 11:00 3 cmFN negative sonographic findings. MRI CNBx recommended. LEFT breast no sonographic findings corresponding to non-bloody nipple discharge. Return to annual screening MMG of the Lt breast. Rt breast US CNBx (05/20/24, [facility]): 10:00 subareolar - Minute fragments of fibrovascular and adipose tissue. No breast ducts or intraductal lesion present for review. Q clip at target. Noted to be concordant. 6 month f/u MMG/US recommended. MRI Breast recommended. On my review, however, this appears to be discordant given proximity to stoplight clip, associated bloody nipple discharge. Rt breast MRI CNBx (05/27/24, [facility]): (1) Rt breast UOQ ant depth - Low-int grade DCIS, papillary/cribriform types. ER pending. Stoplight clip at target. Concordant. (2) Rt breast UOQ mid depth - ADH bordering on DCIS. Buckle clip is 1 cm lateral to UOQ NME. Concordant. Genetic testing: Interested and will obtain lab later this visit Patient denies any masses, skin changes/thickening, dimpling, or nipple inversion of either breast. Patient had some dry skin around the right nipple area, started around January of 2024, no masses or skin changes, reported 2 previous nipple discharge on the right breast HISTORY OF BREAST PROCEDURE(S): No prior history of breast biopsies or procedures Total Clips: Rt breast 3 Rt breast UOQ anterior depth, Stoplight, DCIS Rt breast UOQ mid depth, Buckle, ADH bordering DCIS, 1 cm lateral Rt breast 10:00 subareolar, Q clip, adipose/fibrovascular fragements PAST MEDICAL HISTORY: PAST MEDICAL HISTORY Diagnosis Date Dysmenorrhea Dyspareunia Hypothyroidism also known nodule Papanicolaou smear of cervix with low grade squamous intraepithelial lesion (LGSIL) 02/24/2006 PMH - PAST MEDICAL HISTORY OF bipolar, borderline personality disorder No DM, CVA, CO, renal, hepatic, pulmonary disease/dysfunction. Can walk more than 1 mile without becoming short of breath. Patient would accept a blood transfusion if necessary. PAST SURGICAL HISTORY: PAST SURGICAL HISTORY Procedure Laterality Date PAST SURGICAL HISTORY OF tonsils OBSTETRIC RELATED HISTORY: G 2, P 0 Age at the of first child: Not applicable. She did not breast feed. Patient's last menstrual period was 05/24/2024 (exact date). Age at the onset of menses: 8 years of age. Age at menopause: Not applicable. Hormonal therapy: previous used in 2011 FAMILY HISTORY: FAMILY HISTORY Problem Relation Age of Onset Cancer Maternal Grandfather unknown Heart Paternal Grandfather Stroke Paternal Grandfather Hypertension Maternal Grandmother No history of breast cancer, ovarian cancer, colon cancer, prostate cancer, or pancreatic cancer. Grandfather with SCLC with positive hx of smoking Ashkenazi Ancestry: no SOCIAL HISTORY: Social History Tobacco Use Smoking status: Never Smokeless tobacco: Former Types: Chew Tobacco comments: For 3 years Substance Use Topics Alcohol use: Yes Comment: occasionally Drug use: No ACTIVE PROBLEM LIST Thyroid Nodule - 07/23/2023 Chronic Fatigue - 07/23/2023 Hypothyroidism, Acquired - 07/22/2023 Polycystic Ovarian Disease - 05/10/2009 Lives in 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 levothyroxine (SYNTHROID) 100 mcg tablet Take 1 tablet on 5 days of the week, skip on 2 days of the week (may be Friday and Friday) eletriptan (RELPAX) 40 mg tablet TAKE 1 TABLET NEEDED FOR MIGRAINE HEADACHE (SEE ADMINISTRATION INSTRUCTIONS) AT THE ONSET OF MIGRAINE HEADACHE (1 IN 24 HOURS) Magnesium 200 mg tab Take by mouth. SEMAGLUTIDE, WEIGHT LOSS, SUBCUTANEOUS Inject 70 Units subcutaneously one time a week. spironolactone (ALDACTONE) 50 mg tablet atogepant (QULIPTA) 60 mg tablet Take 1 tablet (60 mg) by mouth once daily. FLUoxetine HCl 20 mg tablet Take 20 mg by mouth once daily. VITAMIN B COMPLEX-100 ORAL Take 1 tablet by mouth once daily. No anticoagulation or diabetic medications ALLERGIES: ALLERGIES Allergen Reactions Penicillins Anaphylaxis REVIEW OF SYSTEMS: GENERAL: No weight loss, malaise or fevers NECK: Negative for lumps, goiter, pain and significant neck swelling RESPIRATORY: Negative for cough, hemoptysis, wheezing, COPD, dyspnea or shortness of breath CARDIOVASCULAR: Negative for chest pain, leg swelling, hypertension, CHF or palpitations GI: No nausea, vomiting, or diarrhea : No history of dysuria, frequency or incontinence CHUTE WORKER: Negative for abnormal vaginal bleeding, abnormal vaginal discharge MUSCULOSKELETAL: Negative for joint pain or swelling, back pain or muscle pain SKIN: Negative for lesions, rash, and itching HEMATOLOGY/LYMPHOLOGY: Negative for prolonged bleeding, bruising easily or swollen nodes ENDOCRINE: Negative for cold or heat intolerance, polyuria, polydipsia and goiter OBJECTIVE: PHYSICAL EXAM: BP 138/78 (BP Position: Sitting) Pulse 87 Temp 36.8 C (98.3 F) (Oral) Resp 20 Ht 162 cm (5' 3.78) Wt 73.8 kg (162 lb 11.2 oz) LMP 05/24/2024 (Exact Date) SpO2 99% BMI 28.12 kg/m GENERAL:well-nourished, healthy, alert and oriented x 3, calm SKIN:warm, dry, skin color, texture, turgor normal HEAD/EYES:normocephalic, atraumatic, and anicteric NECK: supple, symmetrical, no thyromegaly RESPIRATORY: Respirations regular & non-labored ABDOMEN: Not Examined MUSCULOSKELETAL: No observed limitations in range of motion of upper extremities. Patient ambulates independently BREASTS: The Patient was examined in the upright and supine positions. Breasts are symmetric. LEFT BREAST: The breast skin and nipple areolar complexes appear normal without retraction or lesions. There is no nipple discharge. There is no dominant mass or clinical abnormality noted in left breast. RIGHT BREAST: The breast skin and nipple areolar complexes appear normal without retraction or lesions. Right bloody nipple discharge on expression via one duct (UO). There is no dominant mass or clinical abnormality noted in right breast with biopsy ecchymosis periareolar and UOQ. LEFT REGIONAL LYMPH NODES: There is no concerning supraclavicular, infraclavicular or axillary lymphadenopathy RIGHT REGIONAL LYMPH NODES: There is no concerning supraclavicular, infraclavicular or axillary lymphadenopathy Office Mover present for exam SENSITIVE EXAMINATION CONSENT: The sensitive examination was discussed with the Patient or Patient's Authorized Water Service Supervisor. As applicable, any other physician, advance practice provider, medical student, or other health professional student that will be observing or involved in the sensitive examination for educational or training purposes was discussed with the Patient or Authorized Water Service Supervisor. The Patient or Authorized Water Service Supervisor has agreed to proceed with the sensitive examination. IMAGING TO DATE: Addenda * * *Final Report* * * * * * SEE BOTTOM OF REPORT FOR ADDENDED TEXT * * * DATE OF EXAM: May 20 2024 8:55AM [facility] [id number] - [facility] KILLIAN RT / PROCEDURE REASON: Abnormal finding on radiology exam * * * * Physician Interpretation * * * * RESULT: [facility] [address] [facility]. [id number] - - - - - - - - - - ADDENDED REPORT - - - - - - - - - - 05/24/2024 at 10:06:44 Addendum: The final pathology results of the patient's ultrasound guided core biopsy demonstrate the following: Site 1 - (right breast) A. Right Breast at 10 O'Clock, Subareolar, Ultrasound-Guided Core Biopsy With Q-Clip Placement: - Minute Fragments of Fibrovascular and Adipose Tissue. - No Breast Ducts Or Intraductal Lesion Present For Review. Electronically Signed By Sabina Joseph MD On 05/21/2024 at 1459 Edt This is concordant with the imaging findings. RECOMMENDATION Site 1: Six month follow up mammogram and ultrasound i is recommended. Given ultrasound findings suggestive on an intraductal mass, beast MRI is recommended for further evaluation. Findings and recommendations were discussed with the patient over the phone on 05/24/2024. Interpreting Radiologist: Christine Pulliam M.D. Electronically signed on: 05/24/2024 - - - - - - - - - - ORIGINAL REPORT - - - - - - - - - - #[id number] - [facility] US BIOPSY BREAST RT #[id number] - [facility]MIAS KILLIAN RT HISTORY: 43 year old patient presents for ultrasound guided core biopsy of the following: Site 1: Intraductal mass located in the right breast at 10 o'clock, subareolar region PATIENT CONSENT: A time out was performed immediately prior to procedure start with the radiology team, correctly identifying the patient name, date of , procedure, anatomy (including marking of site and side), patient position, relevant diagnostic and radiology test results, safety precautions, and procedure-specific equipment needs. The procedure, along with the risks (including, but not limited to, infection and bleeding), benefits, and alternatives, was explained to the patient by the performing physician. The patient agreed to undergo the procedure. Medications and allergies were also reviewed. The radiologist and technologist were present throughout the entire procedure. Correlation is made to exams dated: 07/20/2020, 12/12/2023, 05/10/2024 (mammogram) and 05/10/2024 (ultrasound). Site 1: Intraductal mass in the right breast at 10 o'clock, subareolar region Audible Time Out Time: 824 Procedure Start Time: 825 Procedure Stop Time: 838 An ultrasound-guided biopsy using real-time ultrasound was performed for the concerning intraductal mass located in the right breast at 10 o'clock, subareolar region. This was described on the previous ultrasound report. The skin was prepped in the usual manner. Local anesthetic was administered. The abnormality was approached from the <> aspect. A 14 gauge biopsy needle was placed adjacent to the abnormality under ultrasound guidance. Once the needle was documented to be in the correct location, 3 samples were obtained using a spring-loaded biopsy device. A Q biopsy marker was then placed under sonographic guidance. A skin closure strip and a sterile dressing were applied to the access site. The specimen was sent to the laboratory for pathological analysis. There were no biopsy complications observed. Post-procedure mammogram: The Q biopsy marker is in appropriate position at the intraductal mass. IMPRESSION: ULTRASOUND GUIDED BIOPSY Site 1: Ultrasound-guided biopsy of the intraductal mass located in the right breast at 10 o'clock, subareolar region with placement of a Q biopsy marker. Procedure was successful. Waiting for pathology result. An amendment will be issued to this report when pathology results become available. The Q biopsy marker is in appropriate position at the intraductal mass. Interpreting Radiologist: Christine Pulliam M.D. Electronically signed on: 05/20/2024 Customs Appraiser: JD Cheungribe Date/Time: May 20 2024 8:03A Dictated by : CHRISTINE PULLIAM MD This examination was interpreted and the report reviewed and electronically signed by: CHRISTINE PULLIAM MD on May 20 2024 9:18AM EST 05/10/2024 3:18 PM - Radiology, [place] In Addenda * * *Final Report* * * * * * SEE BOTTOM OF REPORT FOR ADDENDED TEXT * * * DATE OF EXAM: May 10 2024 10:56AM [facility] [place] [facility] 0627 - [facility] NEHEMIAS TONG / PROCEDURE REASON: multiple diagnoses * * * * Physician Interpretation * * * * RESULT: [place] [id number] - - - - - - - - - - ADDENDED REPORT - - - - - - - - - - 05/10/2024 at 15:13:26 Addendum: Since imaging is negative in the right upper outer quadrant, right MRI biopsy is recommended. Discussed with Lissette Mcleod who will contact the patient. BI-RADS Category 4: Suspicious Interpreting Radiologist: Radha Kamara M.D. Electronically signed on: 05/10/2024 - - - - - - - - - - ORIGINAL REPORT - - - - - - - - - - #[id number] - [facility] NEHEMIAS Bloom [employer]IN KELSEY #[id number] - [facility] [employer] BREAST LTD RT #[id number] - [facility] [employer] BREAST LTD LT HISTORY: 43 year-old patient seen for diagnostic evaluation of non-bloody discharge in both breasts and the finding(s) described on prior MRI in the right breast. Patient states no personal history of breast cancer. COMPARISON STUDIES: The present examination has been compared to prior imaging studies dated 07/20/2020 and 12/12/2023. MAMMOGRAM TECHNIQUE: The study was acquired using full field digital technology and interpreted from soft copy. Digital Breast Tomosynthesis (DBT) images were obtained and used to assist in the interpretation of this examination. MAMMOGRAM FINDINGS: The breasts are heterogeneously dense, which may obscure small masses. The right mammogram is negative in the upper outer quadrant and at the site of focal pain at 11 o'clock 3 cm from the nipple. Finding 1: There are no suspicious mammographic findings to correspond with the bloody nipple discharge in the right breast. Finding 2: There are no suspicious mammographic findings to correspond with the non-bloody nipple discharge in the left breast. ULTRASOUND TECHNIQUE: Targeted ultrasound of the indicated area was performed. Klein scale images were saved. ULTRASOUND FINDINGS: Finding 1: There is an intraductal mass measuring 0.6 x 0.2 x 0.2 cm in the right breast. Internal echotexture is hypoechoic. Color flow imaging demonstrates vascularity is present. Finding correlates to the bloody nipple discharge in the right breast. Ultrasound is negative in the right upper outer quadrant and at the site of focal pain at 11 o'clock 3 cm from the nipple. Finding 2: There are no suspicious sonographic findings to correspond with the non-bloody nipple discharge in the left breast. IMPRESSION: Finding 1: The 0.6 x 0.2 x 0.2 cm intraductal mass in the right breast is suspicious for malignancy. Ultrasound-guided biopsy is recommended. The patient scheduled a right ultrasound biopsy as she left today and signed electronic informed consent. Finding 2: There is no suspicious imaging finding to correspond with the non-bloody nipple discharge in the left breast. Return to annual screening mammogram is recommended. Annual mammogram will be due in 1 year. BI-RADS Category 4: Suspicious RISK: Based on the Tyrer-Cuzick (TC) risk assessment model, this patient has a 12.9% lifetime risk of developing breast cancer, meaning they are at average risk for developing breast cancer. However, this is only an estimate based on available history provided on the patient's questionnaire. We encourage all patients to talk with their providers about these results, further recommendations for managing breast health, and appropriate supplemental screening options if the patient has dense breast tissue. Interpreting Radiologist: Radha Kamara M.D. Electronically signed on: 05/10/2024 PATHOLOGY RESULTS: Component FINAL DIAGNOSIS A. 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 B. 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 [facility] 05/28/24 at 1155 EDT Diagnosis Comment Select slides of Parts A and B were reviewed with Dr. Steph Chavez of the [facility] Breast Pathology Service, who concurs with the above interpretation of ductal carcinoma in-situ (DCIS) and atypical ductal hyperplasia (ADH), respectively. An immunohistochemical stain for estrogen receptor (ER) is pending, formal quantitative interpretation of which will be reported separately. [facility] 05/28/24 Component Resulting Agency FINAL DIAGNOSIS A. Right breast at 10 o'clock, subareolar, ultrasound-guided core biopsy with Q-clip placement: - Minute fragments of fibrovascular and adipose tissue. - No breast ducts or intraductal lesion present for review. at 1459 EDT Gross Description CCM A. Breast, Right, Core Biopsy Received in formalin labeled as right breast are multiple segments of cylindrical tissue aggregating to 1.6 x 0.4 x 0.1 cm, tee-pink to red-brown and of a soft consistency. The specimen was removed from the patient at 8:33 on 05/20/2024 eight. On the same day, the specimen was placed in formalin at 8:33. Totally submitted in formalin in one cassette. AJB May 20, 2024 1:38 PM Gross examination performed at [facility], [address] [place] [address] Performing Lab HL LAB Diagnostic interpretation performed at: [facility], [address] [address] CLIA# [id number] Overlock Sleeve Setter: Tejal Chavarria MD ASSESSMENT: (N64.52) Nipple discharge (primary encounter diagnosis) (D05.11) Ductal carcinoma in situ (DCIS) of right breast (N60.91) Atypical ductal hyperplasia of right breast Yolande Gomes is a 43 year old female with a history significant for Hypothyroidism , no family history of breast or ovarian cancer, who presents for an evaluation of a new 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 Rt breast UOQ mid depth at least ADH. Stage 0, [id number]. I have examined Ms. Gomes and reviewed the physical findings, imaging and pathology reports with her. A discussion was held with the patient regarding the local-regional, as well as systemic treatment of her Breast Cancer. We discussed role of breast conservation surgery or mastectomy, indications and risks of sentinel lymph node biopsy, possibility of axillary lymph node dissection, breast reconstruction, and role of systemic and radiation therapy. Ms. Gomes will be scheduled for bilateral breast surgery and is agreeable to the plan of care. Ms. Gomes requires right skin-sparing mastectomy due to potential larger area of DCIS on MRI breast, bloody nipple discharge, and the proximity of the biopsy-proven DCIS to the nipple. Following discussion, Ms. Gomes would like to proceed with a prophylactic mastectomy with removal of nipple for symmetry. On the prophylactic side, neurotization may be considered. PROCEDURE: Right and Left Mastectomy PROCEDURE: Bilateral Mastectomy with sentinel lymph node biopst on the R side PLASTIC SURGERY REFERRAL: Patient was offered a preoperative referral with a plastic surgeon. Rationale for Mastectomy: patient decision for mastectomy We discussed that prophylactic mastectomy is not associated with increased survival. The risks and benefits of the procedure were discussed in detail and included, but not limited to, bleeding, hematoma requiring operation, infection, breast asymmetry, skin necrosis, nipple necrosis, seroma, nerve paresthesias and positive margins requiring reoperation. Patient expressed understanding and agreement to plan. The patient viewed a genetic testing educational video which describes rationale for germline genetic testing, potential results, and possible personal and familial implications. The patient chose to pursue and provided informed consent for germline testing. Test results will be disclosed by a genetic counselor. IMAGING ORDERED TODAY: None PLAN: Plan for Right skin-sparing mastectomy with R [place] Lymph node biopsy, Left prophylactic skin-sparing mastectomy Consent Obtained Pre-operative testing: None Medical Oncology: Referred Radiation Oncology: Referred Genetics: Will obtain test Plastic surgery: Refer, possible resensation candidate (no distal target scenario) on prophylactic side Psycho-oncology: Information Provided All questions were answered and the patient had no further concerns at this time Ms. Gomes was given our contact information if she has any further questions or concerns. Attending Note: I have personally performed a face to face assessment of this Patient, which included an interview, physical exam, and discussion of the Breast Imaging, Assessment and Plan. I have reviewed and confirmed the history and collado findings as documented by the resident and edited as appropriate. I spent a total of 90 minutes on the date of the service which included preparing to see the patient, [id number] patient care, completing clinical documentation, performing a medically appropriate examination, counseling and educating the patient/family/caregiver, ordering medications, tests, or procedures, communicating with other HCPs (not separately reported), communicating results to the patient/family/caregiver, and care coordination (not separately reported). Pradeep Taylor MD Additional intake questions: Has the patient had fever, nausea, vomiting, diarrhea, constipation, fatigue for > 1 week? Yes, diarrhea ( 4 times in last 24 hours) and fatigue Does the patient have a decreased appetite? No Does patient want to see a Chain Repairer? No (yes to any of above refer patient to schedulers for dietitian appointment) ) Does patient have any new or increased numbness or tingling of extremities? No Is patient interested in fertility information? No Does patient need any prescription refills? No Does patient have an advanced directive in place? no Electronically Signed By: Aislinn Tiwari LPN documented in this encounter [facility] 05-31-2024 Note HNO ID: [id number] Author: PRADEEP TAYLOR MD Service: ? Author Type: Physician Type: Progress Notes Filed: 05/31/2024 10:32 Note Text: [facility] [place] Department of Breast Surgical Oncology [facility] NEW BREAST CANCER - INITIAL SURGICAL VISIT SERVICE DATE: 05/31/2024 REFERRING PROVIDER: No referring provider defined for this encounter. Consult requested for an opinion regarding the evaluation and treatment of breast cancer. My final impression and recommendations will be communicated back to the requesting physician by way of the shared medical record or letter via US mail. SUBJECTIVE: REASON FOR TODAY'S VISIT: Breast Cancer Evaluation HISTORY of PRESENT ILLNESS: Yolande Gomes is a 43 year old female with a history significant for Hypothyroidism , no family history of breast or ovarian cancer, who presents for an evaluation of a new 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 Rt breast UOQ mid depth at least ADH. Stage 0, [id number]. Ms. Gomes was initially seen by Lissette Mcleod in the breast center for right bloody nipple discharge on 05/10/24. Per this clinic note, she first noted bloody nipple discharge in Dec 2023. This occurred again in Feb 2024, spontaneous, noted on tank top. Pressure to the breast will also lead to bloody discharge. Discharge is from multiple ducts. No Spontaneous Left nipple discharge with some non bloody discharge with pressure B/l screening MMG (12/12/23, per Lissette Mcleod 05/10/24 note): Scattered areas of fibroglandular density. No significant findings, changes from prior studies. BIRADS 2. MRI Breast (04/13/24, OSH): RIGHT breast 2.3 cm NME extending to base of the nipple. Additional posterior NME including UO mid depth 1.5 cm NME. LEFT breast no significant findings. No axillary or intramammary LAD. B/l diag MMG (05/10/24, [facility]): Heterogeneously dense breasts. RIGHT MMG is negative in UOQ 11:00 3 cmFN at site of focal pain. RIGHT breast no mammographic correlate to nipple discharge in Rt breast. LEFT breast no mammographic corrleate for non-bloody nipple discharge in the left breast. B/l breast US (05/10/24, [facility]): RIGHT breast intraductal 0.6 x 0.2 x 0.2 cm mass, correlates with nipple discharge in Rt breast. US CNBx recommended. Right breast 11:00 3 cmFN negative sonographic findings. MRI CNBx recommended. LEFT breast no sonographic findings corresponding to non-bloody nipple discharge. Return to annual screening MMG of the Lt breast. Rt breast US CNBx (05/20/24, [facility]): 10:00 subareolar - Minute fragments of fibrovascular and adipose tissue. No breast ducts or intraductal lesion present for review. Q clip at target. Noted to be concordant. 6 month f/u MMG/US recommended. MRI Breast recommended. On my review, however, this appears to be discordant given proximity to stoplight clip, associated bloody nipple discharge. Rt breast MRI CNBx (05/27/24, [facility]): (1) Rt breast UOQ ant depth - Low-int grade DCIS, papillary/cribriform types. ER pending. Stoplight clip at target. Concordant. (2) Rt breast UOQ mid depth - ADH bordering on DCIS. Buckle clip is 1 cm lateral to UOQ NME. Concordant. Genetic testing: Interested and will obtain lab later this visit Patient denies any masses, skin changes/thickening, dimpling, or nipple inversion of either breast. Patient had some dry skin around the right nipple area, started around January of 2024, no masses or skin changes, reported 2 previous nipple discharge on the right breast HISTORY OF BREAST PROCEDURE(S): No prior history of breast biopsies or procedures Total Clips: Rt breast 3 Rt breast UOQ anterior depth, Stoplight, DCIS Rt breast UOQ mid depth, Buckle, ADH bordering DCIS, 1 cm lateral Rt breast 10:00 subareolar, Q clip, adipose/fibrovascular fragements PAST MEDICAL HISTORY: PAST MEDICAL HISTORY Diagnosis Date Dysmenorrhea Dyspareunia Hypothyroidism also known nodule Papanicolaou smear of cervix with low grade squamous intraepithelial lesion (LGSIL) 02/24/2006 PMH - PAST MEDICAL HISTORY OF bipolar, borderline personality disorder No DM, CVA, CO, renal, hepatic, pulmonary disease/dysfunction. Can walk more than 1 mile without becoming short of breath. Patient would accept a blood transfusion if necessary. PAST SURGICAL HISTORY: PAST SURGICAL HISTORY Procedure Laterality Date PAST SURGICAL HISTORY OF tonsils OBSTETRIC RELATED HISTORY: G 2, P 0 Age at the of first child: Not applicable. She did not breast feed. Patient's last menstrual period was 05/24/2024 (exact date). Age at the onset of menses: 8 years of age. Age at menopause: Not applicable. Hormonal therapy: previous used in 2011 FAMILY HISTORY: FAMILY HISTORY Problem Relation Age of Onset Cancer Maternal Grandfather unknown Heart Paternal Grandfather Stroke Paternal Gr (more content not included)... [facility] 05-31-2024 Note HNO ID: [id number] Author: AISLINN TIWARI LPN Service: ? Author Type: LICENSED NURSE Type: Progress Notes Filed: 05/31/2024 10:32 Note Text: Additional intake questions: Has the patient had fever, nausea, vomiting, diarrhea, constipation, fatigue for > 1 week? Yes, diarrhea ( 4 times in last 24 hours) and fatigue Does the patient have a decreased appetite? No Does patient want to see a Chain Repairer? No (yes to any of above refer patient to schedulers for dietitian appointment) ) Does patient have any new or increased numbness or tingling of extremities? No Is patient interested in fertility information? No Does patient need any prescription refills? No Does patient have an advanced directive in place? no Electronically Signed By: Aislinn Tiwari LPN [facility] 05-31-2024 Note Education (HEMCA4) YOLANDE GOMES ([id number]) 1980 F Date Time Provider Department 05/31/24 NIKIA ROWLAND [facility] Reason for Visit: Pre-Op Teaching [134] During your visit today, we recorded the following information about you: Allergies As of Date: 05/31/2024 Noted Allergy Reaction PENICILLINS 07/09/2006 10 - Anaphylaxis Date Reviewed: 05/31/2024 Reviewed by: Aislinn Tiwari LPN - Fully Assessed Prescriptions as of 05/31/2024 - FLUoxetine (PROZAC) 40 mg capsule Take 40 mg by mouth once daily. - levothyroxine (SYNTHROID) 100 mcg tablet Take 1 tablet on 5 days of the week, skip on 2 days of the week (may be Friday and Friday) - eletriptan (RELPAX) 40 mg tablet TAKE 1 TABLET NEEDED FOR MIGRAINE HEADACHE (SEE ADMINISTRATION INSTRUCTIONS) AT THE ONSET OF MIGRAINE HEADACHE (1 IN 24 HOURS) - Magnesium 200 mg tab Take by mouth. - SEMAGLUTIDE, WEIGHT LOSS, SUBCUTANEOUS Inject 70 Units subcutaneously one time a week. - spironolactone (ALDACTONE) 50 mg tablet Encounter Status:Closed by NIKIA ROWLAND on 05/31/24 [facility] 05-28-2024 Telephone encounter Note Attempted to call patient to discuss right breast biopsy results from 05/27/2024. Voicemail box was full and I was unable to leave a message. Lissette Mcelod APRN.CNP May 28, 2024 17:09 [facility] Work Phone: 05-28-2024 Miscellaneous Notes Attempted to call patient to discuss right breast biopsy results from 05/27/2024. Voicemail box was full and I was unable to leave a message. Lissette Mcleod APRN.CNP May 28, 2024 17:09 documented in this encounter [facility] 05-28-2024 Telephone encounter Note Called and spoke with patient who was identified by name and . Informed pt. the breast pathology results show malignancy per Dr. Win. Introduced patient to POC for multidisciplinary consults Surgical Hem/Onc Rad/Onc as well as future contact from surgical field care coordinator for introductory call and appointment time review. Assessed patient preference for surgical teams and locations, and offered first available appointment that met patient's needs. Patient in agreement with plan outline below. Surgeon: Dr. Taylor Site: [facility] Date: 05/31/2024 Time: 829 [facility] 05-28-2024 Miscellaneous Notes Called and spoke with patient who was identified by name and . Informed pt. the breast pathology results show malignancy per Dr. Win. Introduced patient to POC for multidisciplinary consults Surgical Hem/Onc Rad/Onc as well as future contact from surgical field care coordinator for introductory call and appointment time review. Assessed patient preference for surgical teams and locations, and offered first available appointment that met patient's needs. Patient in agreement with plan outline below. Surgeon: Dr. Taylor Site: [facility] Date: 05/31/2024 Time: 829 documented in this encounter [facility] 05-27-2024 History of Present illness Narrative Radiology Service Progress Note DATE OF SERVICE: May 27, 2024 TIME: 11:59 AM PATIENT IDENTITY VERIFICATION COMPLETED USING TWO (2) STANDARD IDENTIFIERS: Name and Date of confirmed by patient verbally and Name and Date of confirmed by identification band. FALL SCREENING: Has the patient had 2 falls in the last year or 1 fall with injury or currently using an Ambulatory Assistive Device (Walker, Cane, Wheelchair, Crutches, etc.)? No PATIENT GENDER DATA: Assigned female at . status: : No status: NO. PATIENT RELEVANT IMPLANT DATA REVIEWED: Yes PATIENT PRESENTS WITH AN IMPLANTABLE OR ATTACHED PBX SUPERVISOR: No ALLERGIES: Reviewed and unchanged CONTRAST ALLERGY: NO. EXAM: MRI - CONTRAST TYPE: GROUP II PERIPHERAL IV DATA: Ambulatory: A peripheral IV was started in the Right antecubital site with a Angio cath: 22 gauge. RADIOLOGY DEPARTMENT: MR; Exam(s) Completed: Chest: Breast and right breast biopsy. Home going instructions given to patient. SIGNATURE: RT Elba(Tj) PATIENT NAME: Yolande Goems DATE: May 27, 2024 TIME: 11:59 AM documented in this encounter [facility] 05-27-2024 Note HNO ID: [id number] Author: LISSETTE CARMONA RT(R) Service: Radiology Author Type: Technologist Type: Progress Notes Filed: 05/27/2024 12:11 Note Text: Radiology Service Progress Note DATE OF SERVICE: May 27, 2024 TIME: 11:59 AM PATIENT IDENTITY VERIFICATION COMPLETED USING TWO (2) STANDARD IDENTIFIERS: Name and Date of confirmed by patient verbally and Name and Date of confirmed by identification band. FALL SCREENING: Has the patient had 2 falls in the last year or 1 fall with injury or currently using an Ambulatory Assistive Device (Walker, Cane, Wheelchair, Crutches, etc.)? No PATIENT GENDER DATA: Assigned female at . status: : No status: NO. PATIENT RELEVANT IMPLANT DATA REVIEWED: Yes PATIENT PRESENTS WITH AN IMPLANTABLE OR ATTACHED PBX SUPERVISOR: No ALLERGIES: Reviewed and unchanged CONTRAST ALLERGY: NO. EXAM: MRI - CONTRAST TYPE: GROUP II PERIPHERAL IV DATA: Ambulatory: A peripheral IV was started in the Right antecubital site with a Angio cath: 22 gauge. RADIOLOGY DEPARTMENT: MR; Exam(s) Completed: Chest: Breast and right breast biopsy. Home going instructions given to patient. SIGNATURE: RT Elba(R) PATIENT NAME: Yolande Gomes DATE: May 27, 2024 TIME: 11:59 AM [facility] 05-24-2024 Telephone encounter Note Called patient to notify the breast pathology results are benign per Dr. Pulliam. Informed patient a 6 month follow up is recommended. Patient verbalized understanding. [facility] Work Phone: 05-24-2024 Miscellaneous Notes Called patient to notify the breast pathology results are benign per Dr. Pulliam. Informed patient a 6 month follow up is recommended. Patient verbalized understanding. documented in this encounter [facility] 05-20-2024 Instructions Formatting of th is note might be different from the original. Post procedure written instructions were given to the patient. [facility] 05-20-2024 Note HNO ID: [id number] Author: ROWDY LIZARRAGA RT(R) Service: ? Author Type: Apartment Maintenance Worker Type: Patient Education Filed: 05/20/2024 08:42 Note Text: Post procedure written instructions were given to the patient. [facility] 05-20-2024 Miscellaneous Notes Post procedure written instructions were given to the patient. documented in this encounter [facility] 05-20-2024 History of Present illness Narrative Radiology Service Progress Note PATIENT NAME: Yolande Gomes DATE OF SERVICE: May 20, 2024 TIME: 8:03 AM PATIENT IDENTITY VERIFICATION COMPLETED USING TWO (2) IDENTIFIERS: Name and Date of confirmed by patient verbally and Name and Date of confirmed by identification band. FALL SCREENING: Has the patient had 2 falls in the last year or 1 fall with injury or currently using an Ambulatory Assistive Device (Walker, Cane, Wheelchair, Crutches, etc.)? No PATIENT GENDER DATA: Assigned female at . status: : No status: NO. PATIENT RELEVANT IMPLANT DATA REVIEWED: Not Applicable PATIENT PRESENTS WITH AN IMPLANTABLE OR ATTACHED PBX SUPERVISOR: No RADIOLOGY DEPARTMENT: Mammography PERIPHERAL IV DATA: Not applicable SIGNED BY: KYLE Duncan) May 20, 2024 8:03 AM documented in this encounter [facility] 05-20-2024 Note HNO ID: [id number] Author: ROWDY LIZARRAGA RT(R) Service: ? Author Type: Apartment Maintenance Worker Type: Progress Notes Filed: 05/20/2024 08:03 Note Text: Radiology Service Progress Note PATIENT NAME: Yolande Gomes DATE OF SERVICE: May 20, 2024 TIME: 8:03 AM PATIENT IDENTITY VERIFICATION COMPLETED USING TWO (2) IDENTIFIERS: Name and Date of confirmed by patient verbally and Name and Date of confirmed by identification band. FALL SCREENING: Has the patient had 2 falls in the last year or 1 fall with injury or currently using an Ambulatory Assistive Device (Walker, Cane, Wheelchair, Crutches, etc.)? No PATIENT GENDER DATA: Assigned female at . status: : No status: NO. PATIENT RELEVANT IMPLANT DATA REVIEWED: Not Applicable PATIENT PRESENTS WITH AN IMPLANTABLE OR ATTACHED PBX SUPERVISOR: No RADIOLOGY DEPARTMENT: Mammography PERIPHERAL IV DATA: Not applicable SIGNED BY: RT Perla(R) May 20, 2024 8:03 AM [facility] 05-10-2024 Telephone encounter Note Called patient and verified identity. She had a breast MRI at an OSH performed on 04/13/2024 that showed a right breast asymmetry with prominent non-mass enhancement in the right breast. Her imaging was reviewed by Dr. Ruiz on 05/05/2024. MRI 04/13/24 and recent mammogram 12/12/23 were reviewed. Outside report details non-mass enhancement in the upper outer right breast for which complete diagnostic evaluation with mammogram and possible ultrasound is recommended. Magnification views of the upper outer right breast are recommended with evaluation for any suspicious calcifications or architectural distortion. Next step: Diagnostic mammogram and ultrasound and consultation to medical breast for reported nipple discharge. Patient had diagnostic imaging performed today at the breast center at there was no sonographic correlate. Per Dr. Ruiz, she is to have an MRI guided biopsy for non-mass enhancement in the upper outer quadrant. The bilateral diagnostic mammogram report was edited today to state: 05/10/2024 at 15:13:26 Addendum: Since imaging is negative in the right upper outer quadrant, right MRI biopsy is recommended. Discussed with Lissette Mcleod who will contact the patient. Patient verbalizes her understanding. I will contact the scheduling office to help assist her with scheduling her MRI guided biopsy. In addition, I have ordered a prolactin level for her bilateral milky nipple discharge. She may complete this lab work at any [facility] facility. Patient my contact me with any questions or concerns. Lissette Mcleod APRN.CNP May 10, 2024 15:20 [facility] Work Phone: 05-10-2024 Miscellaneous Notes Called patient and verified identity. She had a breast MRI at an OSH performed on 04/13/2024 that showed a right breast asymmetry with prominent non-mass enhancement in the right breast. Her imaging was reviewed by Dr. Ruiz on 05/05/2024. MRI 04/13/24 and recent mammogram 12/12/23 were reviewed. Outside report details non-mass enhancement in the upper outer right breast for which complete diagnostic evaluation with mammogram and possible ultrasound is recommended. Magnification views of the upper outer right breast are recommended with evaluation for any suspicious calcifications or architectural distortion. Next step: Diagnostic mammogram and ultrasound and consultation to medical breast for reported nipple discharge. Patient had diagnostic imaging performed today at the breast center at there was no sonographic correlate. Per Dr. Ruiz, she is to have an MRI guided biopsy for non-mass enhancement in the upper outer quadrant. The bilateral diagnostic mammogram report was edited today to state: 05/10/2024 at 15:13:26 Addendum: Since imaging is negative in the right upper outer quadrant, right MRI biopsy is recommended. Discussed with Lissette Mcleod who will contact the patient. Patient verbalizes her understanding. I will contact the scheduling office to help assist her with scheduling her MRI guided biopsy. In addition, I have ordered a prolactin level for her bilateral milky nipple discharge. She may complete this lab work at any [facility] facility. Patient my contact me with any questions or concerns. Lissette Mcleod APRN.CNP May 10, 2024 15:20 documented in this encounter [facility] 05-10-2024 History of Present illness Narrative Radiology Service Progress Note PATIENT NAME: Yolande Gomes DATE OF SERVICE: May 10, 2024 TIME: 11:11 AM PATIENT IDENTITY VERIFICATION COMPLETED USING TWO (2) IDENTIFIERS: Name and Date of confirmed by patient verbally. FALL SCREENING: Has the patient had 2 falls in the last year or 1 fall with injury or currently using an Ambulatory Assistive Device (Walker, Cane, Wheelchair, Crutches, etc.)? No PATIENT GENDER DATA: Assigned female at . status: : No status: NO. PATIENT RELEVANT IMPLANT DATA REVIEWED: Yes PATIENT PRESENTS WITH AN IMPLANTABLE OR ATTACHED PBX SUPERVISOR: No RADIOLOGY DEPARTMENT: Mammography PERIPHERAL IV DATA: Not applicable SIGNED BY: KYLE Rojo) May 10, 2024 11:11 AM documented in this encounter [facility] 05-10-2024 Note HNO ID: [id number] Author: JANET DERAS RT(R) Service: ? Author Type: Apartment Maintenance Worker Type: Progress Notes Filed: 05/10/2024 11:11 Note Text: Radiology Service Progress Note PATIENT NAME: Yolande Gomes DATE OF SERVICE: May 10, 2024 TIME: 11:11 AM PATIENT IDENTITY VERIFICATION COMPLETED USING TWO (2) IDENTIFIERS: Name and Date of confirmed by patient verbally. FALL SCREENING: Has the patient had 2 falls in the last year or 1 fall with injury or currently using an Ambulatory Assistive Device (Walker, Cane, Wheelchair, Crutches, etc.)? No PATIENT GENDER DATA: Assigned female at . status: : No status: NO. PATIENT RELEVANT IMPLANT DATA REVIEWED: Yes PATIENT PRESENTS WITH AN IMPLANTABLE OR ATTACHED PBX SUPERVISOR: No RADIOLOGY DEPARTMENT: Mammography PERIPHERAL IV DATA: Not applicable SIGNED BY: RT Alia(Tj) May 10, 2024 11:11 AM [facility] 05-10-2024 History of Present illness Narrative Images from the original note were not included. MEDICAL BREAST PATIENT NAME: Yolande Gomes May 10, 2024 REFERRAL: She is self referred for an opinion regarding right bloody nipple discharge and abnormal breast MRI from OSH. HISTORY of PRESENT ILLNESS: Yolande Gomes is a 43 year old premenopausal female who presents to the [facility] today for an evaluation of right bloody nipple discharge and a second opinion regarding abnormal breast MRI at OSH on 04/13/2024. The patient denies any breast masses or skin changes. She reports right bloody nipple discharge since December of 2023. She experienced one episode of bloody nipple discharge during sexual activity and then thought nothing of it. Then, in February 2024 she noticed bloody discharge on her tank top. The discharge is occasionally spontaneous but will also occur with pressure applied to her breasts. Endorses the discharge is bloody/clear. She believes it comes from multiple ducts. In there was a little bit of brownish white discharge. Denies any breast injuries. No exogenous hormonal use. She has been experiencing right breast pain that starts at her shoulder, and moves around towards her rib pain. 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 She has seen her PCP for this concern. Had X-rays, CT scan and everything was clear. 05/05/[address] Jesse Ruiz: MRI 04/13/24 and recent mammogram 12/12/23 were reviewed. Outside report details non-mass enhancement in the upper outer right breast for which complete diagnostic evaluation with mammogram and possible ultrasound is recommended. Magnification views of the upper outer right breast are recommended with evaluation for any suspicious calcifications or architectural distortion. Next step: Diagnostic mammogram and ultrasound and consultation to medical breast for reported nipple discharge. 04/28/2024 Documentation from Ewa Rouse RN. Patient had diagnostic imaging on 04/13/2024 from [facility] and the radiologists recommendations were to have a right breast MRI guided biopsy for UOQ non-mass enhancement. 04/13/2024 [facility] Breast MRI (for right bloody nipple discharge): Right breast- asymmetry prominent clumped non-mass enhancement in the right breast extending to the base of the nipple spanning approximately 2.3cm in greatest AP dimension. Addition areas on non-mass enhancement noted posteriorly including suspicious clumped linear non mass enhancement spanning 1.5cm in the upper outer middle depth. Left breast: No suspicious mass or non mass enhancement. No suspicious axillary or internal mammary lymph nodes. Visualized portions of the thoracic and abdominal viscera are unremarkable. 12/12/2023 [facility]: Bilateral screening mammogram- There are scattered areas of fibroglandular density. There are no dominant masses or suspicious calcifications. Stable bilateral fat containing axillary lymph nodes. No other significant abnormalities are identified. There has been no significant change since prior study. Genetic Testing: No Vitamin D 25 Hydroxy (ng/mL) Date Value 07/24/2023 50.2 She takes no supplements. BMD: No PERSONAL BREAST HISTORY: Breast biopsy: No Breast cysts: No Breast surgery: No Breast cancer: No CANCER SURVEILLANCE: Mammograms: 12/12/2023 ([facility]) - as above Breast MRI: 04/13/2024 ([facility]) - as above Colonoscopy: Per patient report, many years ago, had a couple polyps. RISK FACTORS FOR BREAST CANCER: Age at the onset of menses: 8 years of age. P: 0 Age at the of first child: Patient is nulliparous. Age at menopause: The patient is not menopausal at this time. She has an intact uterus and ovaries She is done childbearing and her has had a vasectomy. History of Mantle Radiation prior to the age of 28: No Obesity: 29.31 kg/m2 Weight: 155 lbs Mammographic density: There are scattered fibroglandular densities Personal History of Benign Atypical Breast Biopsy: No Alcohol use: occasional PAST MEDICAL HISTORY: Patient specifically denies history of: DVT, PE, abnormal uterine bleeding, abnormal uterine biopsies, osteopenia, and osteoporosis. +Migraines with aura (follows with neuro), hypothyroidism SOCIAL HISTORY: Social History Tobacco Use Smoking status: Never Smokeless tobacco: Former Types: Chew Tobacco comments: For 3 years Substance Use Topics Alcohol use: Yes Comment: occasionally Drug use: No Caffeine intake: 6 cups / day Exercise: Physically active but no regular exercise program. FAMILY HISTORY: Family history of breast cancer: None Family history of ovarian cancer: None Number of sisters: 0 Number of maternal aunts: 1 Number of paternal aunts: 1 Ashkenazi Ancestry: no Other Cancer: Paternal aunt age 60 multiple myeloma (A), Maternal grandfather lung cancer unknown age (D), paternal grandmother age 70s stomach/esophageal (A) There is no family history of prostate, colon, uterine, pancreatic, gastric, brain, renal cell or thyroid cancer. There is no family history of melanoma, sarcoma or leukemia. Osteoporosis: Maternal aunt Stroke: Paternal grandfather Blood Clot: None Heart attack: Paternal grandfather Thyroid Nodule or Goiter: None Autism: None REVIEW OF SYSTEMS: The patient specifically denies unintentional weight loss, insomnia, hot flashes, night sweats, abnormal swelling in the arms or legs, chest pain, shortness of breath, persistant cough, heartburn, urinary incontinence, unusual bony pains or severe headaches. +vaginal dryness/decreased libido PHYSICAL EXAM: Ht 157.5 cm (5' 2) Wt 70.3 kg (155 lb) LMP 04/23/2024 (Exact Date) BMI 28.35 kg/m General: well-nourished, healthy, female, alert and oriented x 3, calm Skin: warm, dry, skin color, texture, turgor normal Head/Eyes: normocephalic, atraumatic, and anicteric Breasts and Regional Lymph Nodes: The patient was examined in the upright and supine positions. There is no concerning supraclavicular, infraclavicular or axillary lymphadenopathy. The breasts are symmetrical in appearance without visible skin or nipple changes. On the right at 11:00 2.5cmfn there is an area of focal tenderness with an increased tissue density (does not represent a discrete mass). The right nipple expressed clear discharge from one duct in the upper outer aspect of the nipple, in the upper inner aspect, lower inner aspect, and lower outer aspect of the nipple there was white/milky discharge. On the left, in the upper outer aspect of the nipple there was white/milky discharge from one duct. There were no dominant masses in the left breast. The right breast was tender as noted above. The left breast was non-tender. There was mild to moderate fibrocystic change throughout. IMAGING: Bilateral diagnostic imaging with Bilateral ultrasound was performed today in the breast center and showed. The breasts are heterogeneously dense, which may obscure small masses. The right mammogram is negative in the upper outer quadrant and at the site of focal pain at 11 o'clock 3 cm from the nipple. Finding 1: There are no suspicious mammographic findings to correspond with the bloody nipple discharge in the right breast. Finding 2: There are no suspicious mammographic findings to correspond with the non-bloody nipple discharge in the left breast. ULTRASOUND FINDINGS: Finding 1: There is an intraductal mass measuring 0.6 x 0.2 x 0.2 cm in the right breast. Internal echotexture is hypoechoic. Color flow imaging demonstrates vascularity is present. Finding correlates to the bloody nipple discharge in the right breast. Ultrasound is negative in the right upper outer quadrant and at the site of focal pain at 11 o'clock 3 cm from the nipple. Finding 2: There are no suspicious sonographic findings to correspond with the non-bloody nipple discharge in the left breast. I discussed these results with radiology today. Assessment IMPRESSION/PLAN: Yolande Gomes is a 43 year old female with: Spontaneous right nipple discharge Bilateral milky nipple discharge Right mastodynia Abnormal breast MRI There are concerning findings on exam and diagnostic imaging. She will return for right breast ultrasound guided biopsy on 05/20/2024. I discussed the mammographic and ultrasound findings with radiology today. At this time, there was no sonographic correlate for the non-mass enhancement as noted on the OSH MRI. The radiologist who over read her outside imaging has been contacted to give a recommendation of either 6 month follow up or MRI guided biopsy. I stated I would contact Yolande with the final recommendations by the radiologist. Regarding her bilateral milky nipple discharge, I have ordered a Prolactin level for further diagnostic work up. She has a history of hypothyroidism and had a normal TSH value 05/03/2024. We discussed that pathologic nipple discharge, that which is spontaneous, from a single duct orifice, and bloody or clear, is usually a sign of a benign intraductal papilloma or benign duct ectasia, but that an underlying malignancy can be found in 5-21% of patients with pathologic nipple discharge who undergo biopsy. The risk of malignancy increases with age. Genetics: N/A Chemoprevention discussion: N/A I recommended she continue to follow with her PCP for the right shoulder and chest wall/rib tenderness. In addition, I encouraged her to discuss colon cancer screening recommendations with her primary care provider. The patient is advised to exercise regularly, achieve/maintain ideal body weight, and to limit alcohol consumption to less than 7 drinks weekly for breast cancer risk reduction and overall health. She will return 05/20/2024 for right breast US guided biopsy. Follow up will be determined based on her results. She will call me in the interim should she have any questions or concerns. My final recommendations will be communicated back to the requesting physician by way of shared medical record or letter via US mail. I spent a total of 45 minutes minutes on the date of the service which included preparing to see the patient, [id number] patient care, completing clinical documentation, obtaining and/or reviewing separately obtained history, performing a medically appropriate examination, counseling and educating the patient/family/caregiver, ordering medications, tests, or procedures, communicating with other HCPs (not separately reported), independently interpreting results (not separately reported), and communicating results to the patient/family/caregiver. Lissette Mcleod APRN.CNP Medical Breast Specialist May 10, 2024 CC: No referring provider defined for this encounter. Phone: N/A Fax: Isabela Olivera [phone] [place] [address] documented in this encounter [facility] 05-10-2024 Note HNO ID: [id number] Author: LISSETTE MCLEOD APRN.CNP Service: ? Author Type: Nurse Practitioner Type: Progress Notes Filed: 05/10/2024 15:26 Note Text: MEDICAL BREAST PATIENT NAME: Yolande Gomes May 10, 2024 REFERRAL: She is self referred for an opinion regarding right bloody nipple discharge and abnormal breast MRI from OSH. HISTORY of PRESENT ILLNESS: Yolande Gomes is a 43 year old premenopausal female who presents to the [facility] today for an evaluation of right bloody nipple discharge and a second opinion regarding abnormal breast MRI at OSH on 04/13/2024. The patient denies any breast masses or skin changes. She reports right bloody nipple discharge since December of 2023. She experienced one episode of bloody nipple discharge during sexual activity and then thought nothing of it. Then, in February 2024 she noticed bloody discharge on her tank top. The discharge is occasionally spontaneous but will also occur with pressure applied to her breasts. Endorses the discharge is bloody/clear. She believes it comes from multiple ducts. In there was a little bit of brownish white discharge. Denies any breast injuries. No exogenous hormonal use. She has been experiencing right breast pain that starts at her shoulder, and moves around towards her rib pain. 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 She has seen her PCP for this concern. Had X-rays, CT scan and everything was clear. 05/05/[address] Jesse Ruiz: MRI 04/13/24 and recent mammogram 12/12/23 were reviewed. Outside report details non-mass enhancement in the upper outer right breast for which complete diagnostic evaluation with mammogram and possible ultrasound is recommended. Magnification views of the upper outer right breast are recommended with evaluation for any suspicious calcifications or architectural distortion. Next step: Diagnostic mammogram and ultrasound and consultation to medical breast for reported nipple discharge. 04/28/2024 Documentation from Ewa Rouse RN. Patient had diagnostic imaging on 04/13/2024 from [facility] and the radiologists recommendations were to have a right breast MRI guided biopsy for UOQ non-mass enhancement. 04/13/2024 [facility] Breast MRI (for right bloody nipple discharge): Right breast- asymmetry prominent clumped non-mass enhancement in the right breast extending to the base of the nipple spanning approximately 2.3cm in greatest AP dimension. Addition areas on non-mass enhancement noted posteriorly including suspicious clumped linear non mass enhancement spanning 1.5cm in the upper outer middle depth. Left breast: No suspicious mass or non mass enhancement. No suspicious axillary or internal mammary lymph nodes. Visualized portions of the thoracic and abdominal viscera are unremarkable. 12/12/2023 [facility]: Bilateral screening mammogram- There are scattered areas of fibroglandular density. There are no dominant masses or suspicious calcifications. Stable bilateral fat containing axillary lymph nodes. No other significant abnormalities are identified. There has been no significant change since prior study. Genetic Testing: No Vitamin D 25 Hydroxy (ng/mL) Date Value 07/24/2023 50.2 She takes no supplements. BMD: No PERSONAL BREAST HISTORY: Breast biopsy: No Breast cysts: No Breast surgery: No Breast cancer: No CANCER SURVEILLANCE: Mammograms: 12/12/2023 ([facility]) - as above Breast MRI: 04/13/2024 ([facility]) - as above Colonoscopy: Per patient report, many years ago, had a couple polyps. RISK FACTORS FOR BREAST CANCER: Age at the onset of menses: 8 years of age. P: 0 Age at the of first child: Patient is nulliparous. Age at menopause: The patient is not menopausal at this time. She has an intact uterus and ovaries She is done childbearing and her has had a vasectomy. History of Mantle Radiation prior to the age of 28: No Obesity: 29.31 kg/m2 Weight: 155 lbs Mammographic density: There are scattered fibroglandular densities Personal History of Benign Atypical Breast Biopsy: No Alcohol use: occasional PAST MEDICAL HISTORY: Patient specifically denies history of: DVT, PE, abnormal uterine bleeding, abnormal uterine biopsies, osteopenia, and osteoporosis. +Migraines with aura (follows with neuro), hypothyroidism SOCIAL HISTORY: Social History Tobacco Use Smoking status: Never Smokeless tobacco: Former Types: Chew Tobacco comments: For 3 years Substance Use Topics Alcohol use: Yes Comment: occasionally Drug use: No Caffeine intake: 6 cups / day Exercise: Physically active but no regular exercise program. FAMILY HISTORY: Family history of breast cance (more content not included)... [facility] 05-05-2024 Note HNO ID: [id number] Author: JESSE RUIZ MD Service: ? Author Type: Physician Type: Progress Notes Filed: 05/05/2024 11:04 Note Text: Recommended breast biopsy denied. Denied: MRI Guided Biopsy Next Step: Diagnostic mammogram and ultrasound and consultation to medical breast for reported nipple discharge Breast side: Right Lesion location: Right UOQ non-mass enhancement Next step order panel placed: Yes Comments: MRI 04/13/24 and recent mammogram 12/12/23 were reviewed. Outside report details non-mass enhancement in the upper outer right breast for which complete diagnostic evaluation with mammogram and possible ultrasound is recommended. Magnification views of the upper outer right breast are recommended with evaluation for any suspicious calcifications or architectural distortion. Breast Radiologist: Jesse Ruiz MD May 05, 2024 [facility] 05-05-2024 History of Present illness Narrative Recommended breast biopsy denied. Denied: MRI Guided Biopsy Next Step: Diagnostic mammogram and ultrasound and consultation to medical breast for reported nipple discharge Breast side: Right Lesion location: Right UOQ non-mass enhancement Next step order panel placed: Yes Comments: MRI 04/13/24 and recent mammogram 12/12/23 were reviewed. Outside report details non-mass enhancement in the upper outer right breast for which complete diagnostic evaluation with mammogram and possible ultrasound is recommended. Magnification views of the upper outer right breast are recommended with evaluation for any suspicious calcifications or architectural distortion. Breast Radiologist: Jesse Ruiz MD May 05, 2024 documented in this encounter [facility] 04-30-2024 Telephone encounter Note Recommended breast biopsy denied. Denied: MRI Guided Biopsy Next Step: Obtain outside breast imaging if possible including recent mammograms, ultrasounds, and MRIs if possible or will need to repeat imaging. Only recent reports are available but imaging needs to be submitted for overread. Next step order panel placed: No Approving Radiologist: Jesse Ruiz MD April 30, 2024 [facility] Work Phone: 04-30-2024 Miscellaneous Notes Recommended breast biopsy denied. Denied: MRI Guided Biopsy Next Step: Obtain outside breast imaging if possible including recent mammograms, ultrasounds, and MRIs if possible or will need to repeat imaging. Only recent reports are available but imaging needs to be submitted for overread. Next step order panel placed: No Approving Radiologist: Jesse Ruiz MD April 30, 2024 Outside Biopsy Recommended Review Request Patient Name: Yolande Gomes Date films received: 04/13/2024 Name of outside facility: [facility] Images in [facility]: Yes Outside Radiologist's recommendation: Right Breast MRI Bx Date of outside study: 04/13/2024 Patient told to bring script: No IS PATIENT ON BLOOD THINNERS: no Last INR & Date: Comments: Order is uploaded in [employer] documented in this encounter [facility] 04-28-2024 Telephone encounter Note Outside Biopsy Recommended Review Request Patient Name: Yolande Duarte films received: 04/13/2024 Name of outside facility: [facility] Images in FA: Yes Outside Radiologist's recommendation: Right Breast MRI Bx Date of outside study: 04/13/2024 Patient told to bring script: No IS PATIENT ON BLOOD THINNERS: no Last INR & Date: Comments: Order is uploaded in [employer] [facility] Work Phone: 04-28-2024 Telephone encounter Note Outside Biopsy Recommended Review Request Patient Name: Yolande Duarte films received: 04/13/2024 Name of outside facility: [facility] Images in [facility]: Yes Outside Radiologist's recommendation: Right Breast MRI Bx Date of outside study: 04/13/2024 Patient told to bring script: No IS PATIENT ON BLOOD THINNERS: no Last INR & Date: Comments: Order is uploaded in [employer] [facility] Work Phone: 04-28-2024 Miscellaneous Notes Outside Biopsy Recommended Review Request Patient Name: Yolande Duarte films received: 04/13/2024 Name of outside facility: [facility] Images in FA: Yes Outside Radiologist's recommendation: Right Breast MRI Bx Date of outside study: 04/13/2024 Patient told to bring script: No IS PATIENT ON BLOOD THINNERS: no Last INR & Date: Comments: Order is uploaded in [employer] documented in this encounter [facility] 03-31-2024 Instructions Glory Armstrong MD - 03/31/2024 9:47 AM EST Please do labs at your earliest convenience and let us know once completed If dose change is made based on new lab results, we shall do repeat labs again and follow up in 3 months documented in this encounter [facility] 03-31-2024 Note HNO ID: [id number] Author: GLORY ARMSTRONG MD Service: ? Author Type: Physician Type: Progress Notes Filed: 05/02/2024 20:17 Note Text: [facility] Follow up note- virtual Virtual Visit (Audio/Visual)I have discussed the nature of this visit with the patient which will occur via [facility] (Phone, Virtual Visit) and she agrees to proceed with this interaction. I have communicated my name and active licensure. The patient's identity and physical location were verified at the time of this visit. Either the patient or their legal customer success representative has been informed of the risks and benefits of -- and alternatives to -- treatment through a remote evaluation and consents to proceed with the evaluation remotely. History of Present Illness: Yolande Gomes is a 43 year old female here forv follow up of hypothyroidism. Initial visit/ [facility] on 08/18/23 How hypothyroidism was discovered: 2 years ago- she had significant weight gain (difficulty losing weight despite diet and exercise, but has stabilized Current treatment: LT4 100 mcg 5 days a week Prior treatment: [employer] thyroid 30 mg daily, 60 mg on MWF, last dose change in Nov 2022 from 30 mg daily General symptoms: Fatigue: lethargic. 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 She is having less hair loss, and new hair growth which she is glad about Labs that I placed after switching to levothyroxine were not completed prior to this visit REVIEW OF SYSTEMS: As per HPI ALLERGIES: ALLERGIES Allergen Reactions Penicillins Anaphylaxis MEDICATIONS: Current Outpatient Medications on File Prior to Visit Medication Sig Norethindrone, Contraceptive, 0.35 mg tablet Take by mouth. Magnesium 200 mg tab Take by mouth. SEMAGLUTIDE, WEIGHT LOSS, SUBCUTANEOUS Inject 70 Units subcutaneously one time a week. 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 Also takes additional 30 mg equaling (60 mg) Fri eletriptan (RELPAX) 20 mg tablet Take 1 tablet (20 mg) by mouth as needed for migraine headache (see administration instructions) (2 max in 24 hours). at the onset of migraine headache. spironolactone (ALDACTONE) 50 mg tablet FLUoxetine HCl 20 mg tablet Take 20 mg by mouth once daily. VITAMIN B COMPLEX-100 ORAL Take 1 tablet by mouth once daily. cholecalciferol (VITAMIN D) 1,000 unit tab Take 1,000 Units by mouth once daily. (Patient not taking: Reported on 08/18/2023) No current facility-administered medications on file prior to visit. PAST MEDICAL HISTORY: PAST MEDICAL HISTORY Diagnosis Date Dysmenorrhea Dyspareunia Hypothyroidism also known nodule Papanicolaou smear of cervix with low grade squamous intraepithelial lesion (LGSIL) 02/24/2006 PMH - PAST MEDICAL HISTORY OF bipolar, borderline personality disorder PAST SURGICAL HISTORY: PAST SURGICAL HISTORY Procedure Laterality Date PAST SURGICAL HISTORY OF tonsils FAMILY HISTORY: FAMILY HISTORY Problem Relation Age of Onset Cancer Maternal Grandfather unknown Heart Paternal Grandfather Stroke Paternal Grandfather Hypertension Maternal Grandmother she is not aware of any autoimmune or thyroid issues SOCIAL HISTORY: Social History Tobacco Use Smoking status: Never Smokeless tobacco: Former Types: Chew Tobacco comments: For 3 years Substance Use Topics Alcohol use: Yes Comment: occasionally Drug use: No PHYSICAL EXAM: LMP 07/29/2023 (Exact Date) Last 3 Encounter Wt Readings: Date: Wt: 08/18/2023 71.8 kg (158 lb 6.4 oz) 08/01/2023 71.1 kg (156 lb 12 oz) 07/22/2023 71.2 kg (157 lb) General: Alert and oriented x3, no acute distress Eyes: Anicteric sclera. Pupils are equally round. Extraocular movements are intact. Neck supple, no cervical lymphadenopathy Thyroid: normal size, normal texture, no palpable nodules Lungs: Breathing unlabored, clear to auscultation. No wheezing, rhonchi, rales Heart regular rate and rhythm, no murmur Musculoskeletal: Muscular strength intact, No joint swelling, deformity, or tenderness Neuro: Gait normal. Sensation grossly intact. No focal findings Abdomen:Normal abdominal sounds, non tender to palpation Extremities: without edema, no deformities Skin: no rashes/ erythema LABS: Latest Ref (more content not included)... [facility] 03-31-2024 History of Present illness Narrative [facility] Follow up note- virtual Virtual Visit (Audio/Visual)I have discussed the nature of this visit with the patient which will occur via Distance [facility] (Phone, Virtual Visit) and she agrees to proceed with this interaction. I have communicated my name and active licensure. The patient's identity and physical location were verified at the time of this visit. Either the patient or their legal customer success representative has been informed of the risks and benefits of -- and alternatives to -- treatment through a remote evaluation and consents to proceed with the evaluation remotely. History of Present Illness: Yolande Gomes is a 43 year old female here forv follow up of hypothyroidism. Initial visit/ [facility] on 08/18/23 How hypothyroidism was discovered: 2 years ago- she had significant weight gain (difficulty losing weight despite diet and exercise, but has stabilized Current treatment: LT4 100 mcg 5 days a week Prior treatment: [employer] thyroid 30 mg daily, 60 mg on MWF, last dose change in Nov 2022 from 30 mg daily General symptoms: Fatigue: lethargic. 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 She is having less hair loss, and new hair growth which she is glad about Labs that I placed after switching to levothyroxine were not completed prior to this visit REVIEW OF SYSTEMS: As per HPI ALLERGIES: ALLERGIES Allergen Reactions Penicillins Anaphylaxis MEDICATIONS: Current Outpatient Medications on File Prior to Visit Medication Sig Norethindrone, Contraceptive, 0.35 mg tablet Take by mouth. Magnesium 200 mg tab Take by mouth. SEMAGLUTIDE, WEIGHT LOSS, SUBCUTANEOUS Inject 70 Units subcutaneously one time a week. 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 Also takes additional 30 mg equaling (60 mg) Fri eletriptan (RELPAX) 20 mg tablet Take 1 tablet (20 mg) by mouth as needed for migraine headache (see administration instructions) (2 max in 24 hours). at the onset of migraine headache. spironolactone (ALDACTONE) 50 mg tablet FLUoxetine HCl 20 mg tablet Take 20 mg by mouth once daily. VITAMIN B COMPLEX-100 ORAL Take 1 tablet by mouth once daily. cholecalciferol (VITAMIN D) 1,000 unit tab Take 1,000 Units by mouth once daily. (Patient not taking: Reported on 08/18/2023) No current facility-administered medications on file prior to visit. PAST MEDICAL HISTORY: PAST MEDICAL HISTORY Diagnosis Date Dysmenorrhea Dyspareunia Hypothyroidism also known nodule Papanicolaou smear of cervix with low grade squamous intraepithelial lesion (LGSIL) 02/24/2006 PMH - PAST MEDICAL HISTORY OF bipolar, borderline personality disorder PAST SURGICAL HISTORY: PAST SURGICAL HISTORY Procedure Laterality Date PAST SURGICAL HISTORY OF tonsils FAMILY HISTORY: FAMILY HISTORY Problem Relation Age of Onset Cancer Maternal Grandfather unknown Heart Paternal Grandfather Stroke Paternal Grandfather Hypertension Maternal Grandmother she is not aware of any autoimmune or thyroid issues SOCIAL HISTORY: Social History Tobacco Use Smoking status: Never Smokeless tobacco: Former Types: Chew Tobacco comments: For 3 years Substance Use Topics Alcohol use: Yes Comment: occasionally Drug use: No PHYSICAL EXAM: LMP 07/29/2023 (Exact Date) Last 3 Encounter Wt Readings: Date: Wt: 08/18/2023 71.8 kg (158 lb 6.4 oz) 08/01/2023 71.1 kg (156 lb 12 oz) 07/22/2023 71.2 kg (157 lb) General: Alert and oriented x3, no acute distress Eyes: Anicteric sclera. Pupils are equally round. Extraocular movements are intact. Neck supple, no cervical lymphadenopathy Thyroid: normal size, normal texture, no palpable nodules Lungs: Breathing unlabored, clear to auscultation. No wheezing, rhonchi, rales Heart regular rate and rhythm, no murmur Musculoskeletal: Muscular strength intact, No joint swelling, deformity, or tenderness Neuro: Gait normal. Sensation grossly intact. No focal findings Abdomen:Normal abdominal sounds, non tender to palpation Extremities: without edema, no deformities Skin: no rashes/ erythema LABS: Latest Ref Rng 10/22/2019 01/18/2022 04/10/2023 06/20/2023 08/18/2023 T4 5.5 - 10.2 ug/dL 7.4 TSH 0.270 - 4.200 mIU/L 2.460 0.818 1.720 Free T3 2.3 - 4.1 pg/mL 3.6 3.2 Thyroglobulin Ab <14.4 IU/mL <1.0 Thyroglobulin Ab, Serum <4.0 IU/mL <0.9 Free T4 0.9 - 1.7 ng/dL 0.9 THYROID PEROXIDASE ANTIBODY <5.6 IU/mL <3.0 ASSESSMENT/PLAN: Acquired hypothyroidism: Switched to current dose of LT4 100 mcg 5 days a week from [employer] thyroid, based on labs in 07/2023. No symptoms. Taking medication appropriately as instructed Labs pending, will adjust the dose based on results Labs in 2 months after dose change, if at all Follow up in 3 months after dose change as indicted above Medical Decision Making: Problems: Moderate: 1+ chronic illnesses with change Data: Unique test result(s) reviewed: 3+ Unique test(s) ordered: 2 Risk: Moderate: Drug management Medical Decision Making Level: 4 - Moderate Glory Armstrong MD Endocrinology Associate Staff [facility] Endocrinology and Metabolism [place] [phone] documented in this encounter [facility] 01-07-2024 Note HNO ID: [id number] Author: MATEO SÁNCHEZ PA-C Service: ? Author Type: Physician Earthmoving Labourer Type: Progress Notes Filed: 01/07/2024 19:54 Note Text: This note was created using Film Freshriter. Subjective Yolande Gomes is a 43 year old female. HPI Presents with the chief complaint of sore throat, runny nose, body aches over the past day. She states she had flown on a plane from [place] 2 days ago coming home from vacation. She also may have been exposed to strep throat through some family members who had tested positive. She denies vomiting or diarrhea. She was going to go on another trip tomorrow and wanted to make sure what was going on. She states she does have some achiness when she moves her chest and back. No shortness of breath. No vomiting or diarrhea. She has not noticed a fever. Review of Systems Constitutional: Positive for fatigue. Negative for fever. HENT: Positive for congestion, ear pain, postnasal drip and sore throat. Respiratory: Negative for cough, shortness of breath and wheezing. Gastrointestinal: Negative. Musculoskeletal: Positive for myalgias. All other systems reviewed and are negative. PAST MEDICAL HISTORY Diagnosis Date Dysmenorrhea Dyspareunia Hypothyroidism also known nodule Papanicolaou smear of cervix with low grade squamous intraepithelial lesion (LGSIL) 02/24/2006 PMH - PAST MEDICAL HISTORY OF bipolar, borderline personality disorder Current Outpatient Medications Medication Sig Dispense Refill eletriptan (RELPAX) 40 mg tablet TAKE 1 TABLET NEEDED FOR MIGRAINE HEADACHE (SEE ADMINISTRATION INSTRUCTIONS) AT THE ONSET OF MIGRAINE HEADACHE (1 IN 24 HOURS) 12 tablet 19 levothyroxine (SYNTHROID) 100 mcg tablet Take 1 tablet on 5 days of the week, skip on 2 days of the week (may be Friday and Friday) 65 tablet 1 Magnesium 200 mg tab Take by mouth. SEMAGLUTIDE, WEIGHT LOSS, SUBCUTANEOUS Inject 70 Units subcutaneously one time a week. spironolactone (ALDACTONE) 50 mg tablet FLUoxetine HCl 20 mg tablet Take 20 mg by mouth once daily. atogepant (QULIPTA) 60 mg tablet Take 1 tablet (60 mg) by mouth once daily. (Patient not taking: Reported on 01/07/2024) 30 tablet 0 VITAMIN B COMPLEX-100 ORAL Take 1 tablet by mouth once daily. No current facility-administered medications for this visit. PAST SURGICAL HISTORY Procedure Laterality Date PAST SURGICAL HISTORY OF tonsils FAMILY HISTORY Problem Relation Age of Onset Cancer Maternal Grandfather unknown Heart Paternal Grandfather Stroke Paternal Grandfather Hypertension Maternal Grandmother Social History Tobacco Use Smoking status: Never Smokeless tobacco: Former Types: Chew Tobacco comments: For 3 years Substance Use Topics Alcohol use: Yes Comment: occasionally Drug use: No Objective BP 122/70 Pulse 88 Temp 36.3 ?C (97.3 ?F) Resp 16 Wt 72.7 kg (160 lb 4.4 oz) LMP 07/29/2023 (Exact Date) SpO2 99% BMI 29.31 kg/m? Physical Exam Vitals reviewed. Constitutional: Appearance: Normal appearance. HENT: Head: Normocephalic and atraumatic. Right Ear: Tympanic membrane, ear canal and external ear normal. Left Ear: Tympanic membrane, ear canal and external ear normal. Nose: Congestion present. Mouth/Throat: Lips: [place]. Mouth: Mucous membranes are moist. Pharynx: Posterior oropharyngeal erythema present. No pharyngeal swelling, oropharyngeal exudate or uvula swelling. Tonsils: 1+ on the right. 1+ on the left. Cardiovascular: Rate and Rhythm: Normal rate and regular rhythm. Heart sounds: Normal heart sounds. Pulmonary: Effort: Pulmonary effort is normal. Breath sounds: Normal breath sounds. No wheezing or rhonchi. Skin: General: Skin is warm and dry. Neurological: Mental Status: She is alert. Assessment and Plan ASSESSMENT/PLAN: 1. Sore throat - ICD9: 462, ICD10: J02.9 (primary diagnosis) - Group A strep molecular testing negative - STREP A MOLECULAR (POC) 2. Viral URI - ICD9: 465.9, ICD10: J06.9 - Discussed viral etiology and rationale for treatment. - Symptomatic treatment with prn analgesia - Supportive care with fluids and rest -Chest x-ray was clear. COVID test at home negative. Discussed if not improving follow-up with PCP. Patient agreeable. - XR CHEST 2V FRONTAL/LAT Mateo Sánchez PA-C [facility] 01-07-2024 History of Present illness Narrative This note was created using NoteWriter. Subjective Yolande Gomes is a 43 year old female. HPI Presents with the chief complaint of sore throat, runny nose, body aches over the past day. She states she had flown on a plane from [place] 2 days ago coming home from vacation. She also may have been exposed to strep throat through some family members who had tested positive. She denies vomiting or diarrhea. She was going to go on another trip tomorrow and wanted to make sure what was going on. She states she does have some achiness when she moves her chest and back. No shortness of breath. No vomiting or diarrhea. She has not noticed a fever. Review of Systems Constitutional: Positive for fatigue. Negative for fever. HENT: Positive for congestion, ear pain, postnasal drip and sore throat. Respiratory: Negative for cough, shortness of breath and wheezing. Gastrointestinal: Negative. Musculoskeletal: Positive for myalgias. All other systems reviewed and are negative. PAST MEDICAL HISTORY Diagnosis Date Dysmenorrhea Dyspareunia Hypothyroidism also known nodule Papanicolaou smear of cervix with low grade squamous intraepithelial lesion (LGSIL) 02/24/2006 PMH - PAST MEDICAL HISTORY OF bipolar, borderline personality disorder Current Outpatient Medications Medication Sig Dispense Refill eletriptan (RELPAX) 40 mg tablet TAKE 1 TABLET NEEDED FOR MIGRAINE HEADACHE (SEE ADMINISTRATION INSTRUCTIONS) AT THE ONSET OF MIGRAINE HEADACHE (1 IN 24 HOURS) 12 tablet 19 levothyroxine (SYNTHROID) 100 mcg tablet Take 1 tablet on 5 days of the week, skip on 2 days of the week (may be Friday and Friday) 65 tablet 1 Magnesium 200 mg tab Take by mouth. SEMAGLUTIDE, WEIGHT LOSS, SUBCUTANEOUS Inject 70 Units subcutaneously one time a week. spironolactone (ALDACTONE) 50 mg tablet FLUoxetine HCl 20 mg tablet Take 20 mg by mouth once daily. atogepant (QULIPTA) 60 mg tablet Take 1 tablet (60 mg) by mouth once daily. (Patient not taking: Reported on 01/07/2024) 30 tablet 0 VITAMIN B COMPLEX-100 ORAL Take 1 tablet by mouth once daily. No current facility-administered medications for this visit. PAST SURGICAL HISTORY Procedure Laterality Date PAST SURGICAL HISTORY OF tonsils FAMILY HISTORY Problem Relation Age of Onset Cancer Maternal Grandfather unknown Heart Paternal Grandfather Stroke Paternal Grandfather Hypertension Maternal Grandmother Social History Tobacco Use Smoking status: Never Smokeless tobacco: Former Types: Chew Tobacco comments: For 3 years Substance Use Topics Alcohol use: Yes Comment: occasionally Drug use: No Objective BP 122/70 Pulse 88 Temp 36.3 C (97.3 F) Resp 16 Wt 72.7 kg (160 lb 4.4 oz) LMP 07/29/2023 (Exact Date) SpO2 99% BMI 29.31 kg/m Physical Exam Vitals reviewed. Constitutional: Appearance: Normal appearance. HENT: Head: Normocephalic and atraumatic. Right Ear: Tympanic membrane, ear canal and external ear normal. Left Ear: Tympanic membrane, ear canal and external ear normal. Nose: Congestion present. Mouth/Throat: Lips: [place]. Mouth: Mucous membranes are moist. Pharynx: Posterior oropharyngeal erythema present. No pharyngeal swelling, oropharyngeal exudate or uvula swelling. Tonsils: 1+ on the right. 1+ on the left. Cardiovascular: Rate and Rhythm: Normal rate and regular rhythm. Heart sounds: Normal heart sounds. Pulmonary: Effort: Pulmonary effort is normal. Breath sounds: Normal breath sounds. No wheezing or rhonchi. Skin: General: Skin is warm and dry. Neurological: Mental Status: She is alert. Assessment and Plan ASSESSMENT/PLAN: 1. Sore throat - ICD9: 462, ICD10: J02.9 (primary diagnosis) - Group A strep molecular testing negative - STREP A MOLECULAR (POC) 2. Viral URI - ICD9: 465.9, ICD10: J06.9 - Discussed viral etiology and rationale for treatment. - Symptomatic treatment with prn analgesia - Supportive care with fluids and rest -Chest x-ray was clear. COVID test at home negative. Discussed if not improving follow-up with PCP. Patient agreeable. - XR CHEST 2V FRONTAL/LAT Mateo Sánchez PA-C documented in this encounter [facility] 01-07-2024 History of Present illness Narrative Radiology Service Progress Note PATIENT NAME: Yolande Gomes DATE OF SERVICE: January 07, 2024 TIME: 7:25 PM PATIENT IDENTITY VERIFICATION COMPLETED USING TWO (2) IDENTIFIERS: Name and Date of confirmed by patient verbally. FALL SCREENING: Has the patient had 2 falls in the last year or 1 fall with injury or currently using an Ambulatory Assistive Device (Walker, Cane, Wheelchair, Crutches, etc.)? No PATIENT GENDER DATA: Female. status: : No status: NO. PATIENT RELEVANT IMPLANT DATA REVIEWED: Yes PATIENT PRESENTS WITH AN IMPLANTABLE OR ATTACHED PBX SUPERVISOR: No RADIOLOGY DEPARTMENT: General X-ray: Exam(s) Completed: Chest X-Ray PERIPHERAL IV DATA: Not applicable SIGNED BY: KYLE Rajan) January 07, 2024 7:25 PM documented in this encounter [facility] 01-07-2024 Note HNO ID: [id number] Author: JOSE F ARRIAGA RT (R) Service: ? Author Type: Apartment Maintenance Worker Type: Progress Notes Filed: 01/07/2024 19:34 Note Text: Radiology Service Progress Note PATIENT NAME: Yolande Gomes DATE OF SERVICE: January 07, 2024 TIME: 7:25 PM PATIENT IDENTITY VERIFICATION COMPLETED USING TWO (2) IDENTIFIERS: Name and Date of confirmed by patient verbally. FALL SCREENING: Has the patient had 2 falls in the last year or 1 fall with injury or currently using an Ambulatory Assistive Device (Walker, Cane, Wheelchair, Crutches, etc.)? No PATIENT GENDER DATA: Female. status: : No status: NO. PATIENT RELEVANT IMPLANT DATA REVIEWED: Yes PATIENT PRESENTS WITH AN IMPLANTABLE OR ATTACHED PBX SUPERVISOR: No RADIOLOGY DEPARTMENT: General X-ray: Exam(s) Completed: Chest X-Ray PERIPHERAL IV DATA: Not applicable SIGNED BY: RT Mohini(Tj) January 07, 2024 7:25 PM [facility] 12-29-2023 Telephone encounter Note Pharmacy verified in [employer]. Patient has been identified by name and date of : Yes Patient aware RX will be sent to pharmacy. No need to notify patient. Pharmacy phones for refill(s): Requested Prescriptions Pending Prescriptions Disp Refills eletriptan (RELPAX) 40 mg tablet [Pharmacy Med Name: ELETRIPTAN HYDROBROMIDE TABS 40MG] 12 tablet 19 Sig: TAKE 1 TABLET NEEDED FOR MIGRAINE HEADACHE (SEE ADMINISTRATION INSTRUCTIONS) AT THE ONSET OF MIGRAINE HEADACHE (1 IN 24 HOURS) Date of last office visit : 05/15/2023 Date of next office visit : Visit date not found Last 2 Encounter Wt Readings: Date: Wt: 10/13/2023 70.3 kg (155 lb) 09/16/2023 70.7 kg (155 lb 13.8 oz) Please advise. Marina Irvin MA [facility] 12-29-2023 Miscellaneous Notes Pharmacy verified in [employer]. Patient has been identified by name and date of : Yes Patient aware RX will be sent to pharmacy. No need to notify patient. Pharmacy phones for refill(s): Requested Prescriptions Pending Prescriptions Disp Refills eletriptan (RELPAX) 40 mg tablet [Pharmacy Med Name: ELETRIPTAN HYDROBROMIDE TABS 40MG] 12 tablet 19 Sig: TAKE 1 TABLET NEEDED FOR MIGRAINE HEADACHE (SEE ADMINISTRATION INSTRUCTIONS) AT THE ONSET OF MIGRAINE HEADACHE (1 IN 24 HOURS) Date of last office visit : 05/15/2023 Date of next office visit : Visit date not found Last 2 Encounter Wt Readings: Date: Wt: 10/13/2023 70.3 kg (155 lb) 09/16/2023 70.7 kg (155 lb 13.8 oz) Please advise. Marina Irvin MA documented in this encounter [facility] 12-16-2023 History of Present illness Narrative Radiology Service Progress Note PATIENT NAME: Yolande Gomes DATE OF SERVICE: December 16, 2023 TIME: 1:13 PM PATIENT IDENTITY VERIFICATION COMPLETED USING TWO (2) IDENTIFIERS: Name and Date of confirmed by patient verbally. FALL SCREENING: Has the patient had 2 falls in the last year or 1 fall with injury or currently using an Ambulatory Assistive Device (Walker, Cane, Wheelchair, Crutches, etc.)? No PATIENT GENDER DATA: Female. status: : No status: NO. PATIENT RELEVANT IMPLANT DATA REVIEWED: Yes PATIENT PRESENTS WITH AN IMPLANTABLE OR ATTACHED PBX SUPERVISOR: No RADIOLOGY DEPARTMENT: CT; Exam(s) Completed: Brain PERIPHERAL IV DATA: Not applicable SIGNED BY: RT Padilla(Tj) December 16, 2023 1:13 PM documented in this encounter [facility] 12-16-2023 Note HNO ID: [id number] Author: KIMBERLY MONTES DE OCA RT(R) Service: ? Author Type: Apartment Maintenance Worker Type: Progress Notes Filed: 12/16/2023 13:13 Note Text: Radiology Service Progress Note PATIENT NAME: Yolande Gomes DATE OF SERVICE: December 16, 2023 TIME: 1:13 PM PATIENT IDENTITY VERIFICATION COMPLETED USING TWO (2) IDENTIFIERS: Name and Date of confirmed by patient verbally. FALL SCREENING: Has the patient had 2 falls in the last year or 1 fall with injury or currently using an Ambulatory Assistive Device (Walker, Cane, Wheelchair, Crutches, etc.)? No PATIENT GENDER DATA: Female. status: : No status: NO. PATIENT RELEVANT IMPLANT DATA REVIEWED: Yes PATIENT PRESENTS WITH AN IMPLANTABLE OR ATTACHED PBX SUPERVISOR: No RADIOLOGY DEPARTMENT: CT; Exam(s) Completed: Brain PERIPHERAL IV DATA: Not applicable SIGNED BY: RT Padilla(Tj) December 16, 2023 1:13 PM [facility] 11-28-2023 Note HNO ID: [id number] Author: CRISSY DON MD Service: ? Author Type: Physician Type: Progress Notes Filed: 11/28/2023 22:53 Note Text: PROMIS Global [facility] Mental Health Summary Quality of life: Fair Mental health (mood,thinking): Fair Social satisfaction: Fair Emotional problems (anxious,depressed): Often Mental Health T-Score 33.8 (Fair) Mental Health Percentile 5 PHQ-9 Score: 17(Moderately Severe Depression) PHQ-9 Self-Harm: Not at all ALEXA-7 Score: 16(Severe Anxiety) NEURO-QOL Cognitive Function T-Score 40(Mild Dysfunction) Neuro-Qol Cognitive Function Percentile 16 PROMIS Pain Interference T-Score 72(Severe) PROMIS Pain Interference Percentile 1 Percentiles provide an indication of how a patient's score ranks in relation to the [place] general population. > 31st percentile is within normal limits or better *< 31st percentile is at least ? SD worse than population, which may be clinically relevant < 16th percentile is at least 1 SD worse than population and warrants attention VIRTUAL VISIT PROGRESS NOTE This is a virtual visit using Modbookhart Zoom Video Visit. It required patient-provider interaction for the medical decision making as documented below. I have communicated my name and active licensure. The patient's identity and physical location were verified at the time of this visit. Either the patient or their legal customer success representative has been informed of the risks and benefits of -- and alternatives to -- treatment through a remote evaluation and consents to proceed with the evaluation remotely. Yolande Gomes is a 43 year old female seen for intractable migriane . Tried topamax and had side effects so was discontinued Then went to see Dr Pandey in headache Clinic Had occipital block ,but didn't help her . she is having debilitating headache since February but still worsening End of July and August She takes relpax 20 mg as needed to relieve the headache associated With nausea and vomitng So failed severaql preventive Most of the headaches without aura Fewer episodes with aura as sparkles and colors HISTORY REVIEWED (electronic chart updated): PAST MEDICAL HISTORY Diagnosis Date Dysmenorrhea Dyspareunia Hypothyroidism also known nodule Papanicolaou smear of cervix with low grade squamous intraepithelial lesion (LGSIL) 02/24/2006 PMH - PAST MEDICAL HISTORY OF bipolar, borderline personality disorder PAST SURGICAL HISTORY Procedure Laterality Date PAST SURGICAL HISTORY OF tonsils FAMILY HISTORY Problem Relation Age of Onset Cancer Maternal Grandfather unknown Heart Paternal Grandfather Stroke Paternal Grandfather Hypertension Maternal Grandmother Social History Tobacco Use Smoking status: Never Smokeless tobacco: Former Types: Chew Tobacco comments: For 3 years Substance Use Topics Alcohol use: Yes Comment: occasionally Drug use: No Current Outpatient Medications Medication Sig atogepant (QULIPTA) 60 mg tablet Take 1 tablet (60 mg) by mouth once daily. eletriptan (RELPAX) 40 mg tablet Take 1 tablet (40 mg) by mouth as needed for migraine headache (see administration instructions) (one in 24 hours). at the onset of migraine headache. levothyroxine (SYNTHROID) 100 mcg tablet Take 1 tablet on 5 days of the week, skip on 2 days of the week (may be Friday and Friday) Magnesium 200 mg tab Take by mouth. SEMAGLUTIDE, WEIGHT LOSS, SUBCUTANEOUS Inject 70 Units subcutaneously one time a week. spironolactone (ALDACTONE) 50 mg tablet FLUoxetine HCl 20 mg tablet Take 20 mg by mouth once daily. VITAMIN B COMPLEX-100 ORAL Take 1 tablet by mouth once daily. No current facility-administered medications for this visit. ALLERGIES Allergen Reactions Penicillins Anaphylaxis REVIEW OF SYSTEMS: GENERAL: feeling well without fatigue, no recent change in weight PHYSICAL EXAMINATION: VIDEO EXAM: (if completed, performed via video enabled technology) GENERAL: alert and appropriate, in no distress and well-hydrated, well nourished ASSESSMENT: (G43.011) 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 and with status migrainosus (primary encounter diagnosis) PLAN: [facility] on 11/28/23 CT BRAIN WO IVCON New prescriptions written ,she already has been to headache clinic QULIPTA as preventive and Relpax as needed There are no Patient Instructions on file for this visit. I spent a total of 30 minutes on the date of the service which included preparing to see the patient, [id number] patient care, completing clinical documentation, obtaining and/or reviewing separately obtained history, and counseling and educating the patient/family/caregiver Crissy Don MD [facility] 11-28-2023 History of Present illness Narrative PROMIS Global Health Mental Health Summary Quality of life: Fair Mental health (mood,thinking): Fair Social satisfaction: Fair Emotional problems (anxious,depressed): Often Mental Health T-Score 33.8 (Fair) Mental Health Percentile 5 PHQ-9 Score: 17(Moderately Severe Depression) PHQ-9 Self-Harm: Not at all ALEXA-7 Score: 16(Severe Anxiety) NEURO-QOL Cognitive Function T-Score 40(Mild Dysfunction) Neuro-Qol Cognitive Function Percentile 16 PROMIS Pain Interference T-Score 72(Severe) PROMIS Pain Interference Percentile 1 Percentiles provide an indication of how a patient's score ranks in relation to the [place] general population. > 31st percentile is within normal limits or better *< 31st percentile is at least SD worse than population, which may be clinically relevant < 16th percentile is at least 1 SD worse than population and warrants attention VIRTUAL VISIT PROGRESS NOTE This is a virtual visit using [employer] Zoom Video Visit. It required patient-provider interaction for the medical decision making as documented below. I have communicated my name and active licensure. The patient's identity and physical location were verified at the time of this visit. Either the patient or their legal customer success representative has been informed of the risks and benefits of -- and alternatives to -- treatment through a remote evaluation and consents to proceed with the evaluation remotely. Yolande Gomes is a 43 year old female seen for intractable migriane . Tried topamax and had side effects so was discontinued Then went to see Dr Pandey in headache Clinic Had occipital block ,but didn't help her . she is having debilitating headache since February but still worsening End of July and August She takes relpax 20 mg as needed to relieve the headache associated With nausea and vomitng So failed severaql preventive Most of the headaches without aura Fewer episodes with aura as sparkles and colors HISTORY REVIEWED (electronic chart updated): PAST MEDICAL HISTORY Diagnosis Date Dysmenorrhea Dyspareunia Hypothyroidism also known nodule Papanicolaou smear of cervix with low grade squamous intraepithelial lesion (LGSIL) 02/24/2006 PMH - PAST MEDICAL HISTORY OF bipolar, borderline personality disorder PAST SURGICAL HISTORY Procedure Laterality Date PAST SURGICAL HISTORY OF tonsils FAMILY HISTORY Problem Relation Age of Onset Cancer Maternal Grandfather unknown Heart Paternal Grandfather Stroke Paternal Grandfather Hypertension Maternal Grandmother Social History Tobacco Use Smoking status: Never Smokeless tobacco: Former Types: Chew Tobacco comments: For 3 years Substance Use Topics Alcohol use: Yes Comment: occasionally Drug use: No Current Outpatient Medications Medication Sig atogepant (QULIPTA) 60 mg tablet Take 1 tablet (60 mg) by mouth once daily. eletriptan (RELPAX) 40 mg tablet Take 1 tablet (40 mg) by mouth as needed for migraine headache (see administration instructions) (one in 24 hours). at the onset of migraine headache. levothyroxine (SYNTHROID) 100 mcg tablet Take 1 tablet on 5 days of the week, skip on 2 days of the week (may be Friday and Friday) Magnesium 200 mg tab Take by mouth. SEMAGLUTIDE, WEIGHT LOSS, SUBCUTANEOUS Inject 70 Units subcutaneously one time a week. spironolactone (ALDACTONE) 50 mg tablet FLUoxetine HCl 20 mg tablet Take 20 mg by mouth once daily. VITAMIN B COMPLEX-100 ORAL Take 1 tablet by mouth once daily. No current facility-administered medications for this visit. ALLERGIES Allergen Reactions Penicillins Anaphylaxis REVIEW OF SYSTEMS: GENERAL: feeling well without fatigue, no recent change in weight PHYSICAL EXAMINATION: VIDEO EXAM: (if completed, performed via video enabled technology) GENERAL: alert and appropriate, in no distress and well-hydrated, well nourished ASSESSMENT: (G43.011) 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 and with status migrainosus (primary encounter diagnosis) PLAN: [facility] on 11/28/23 CT BRAIN WO IVCON New prescriptions written ,she already has been to headache clinic QULIPTA as preventive and Relpax as needed There are no Patient Instructions on file for this visit. I spent a total of 30 minutes on the date of the service which included preparing to see the patient, [id number] patient care, completing clinical documentation, obtaining and/or reviewing separately obtained history, and counseling and educating the patient/family/caregiver Crissy Don MD documented in this encounter [facility] 11-25-2023 Telephone encounter Note Physician: Dr. Don Call from pharmacy requesting refill. Please E-Scribe Last OV: 11/28/[address] Don Future OV: 10/13/[address] Cuellar Please confirm if the message should be for Dr. Don or Dr. Cuellar. Thank you Requested Prescriptions Pending Prescriptions Disp Refills eletriptan (RELPAX) 20 mg tablet 12 tablet 0 Sig: Take 1 tablet (20 mg) by mouth as needed. May repeat dose after 2 hours if needed. Maximum daily dose is 80 mg per day. Pharmacy Name: [facility] Phone #: [phone] 10/13/2023 - Dr. Cuellar ASSESSMENT: -Bilateral occipital neuralgia RECOMMENDATIONS: -Bilateral occipital nerve block today -Follow up as needed. Elly Cuellar MD 08/01/23 Dr. Don Assessment & Plan: Yolande Gomes is a 42 year old female with a history of hypothyroidism, migraine. Her examination demonstrates no neurologic deficits. Patient presents for evaluation of migraines as well as multiple different neurologic symptoms starting in June. Notes that she followed with Dr. Don at the end of April and was put on Topamax 50 mg, magnesium 500 mg for preventative relief of migraine and Relpax for abortive relief. In June of this year she began experiencing pain, paresthesias, crawling sensation from her scalp and into her shoulders, intermittent and at different locations. Also experiencing numbness in her hands, pain in her feet, hips. Also reporting significant fatigue, confusion and brain fog. Also reporting some changes in her taste as well. No other etiology for onset that she can think of. Patient's neurologic exam is very reassuring. Does note that her current regimen has decreased her headaches, but discussed that many of the symptoms she is experiencing are likely secondary from the Topamax. Discussed stopping this medication and patient agrees. Patient without any history of seizures or epilepsy. Encouraged her to continue with magnesium, also educated her on additional supplements that may beneficial as preventative treatment as well. Will continue with Relpax as an abortive therapy. Patient already has appointment with Dr. Don scheduled for next week encouraged her to follow-up. Will reach out to Dr. Don to see if any additional testing or workup is needed. Patient agreeable to treatment plan of care at this time, questions were answered. Patient follow-up as needed. Yolande was seen today for established patient. Diagnoses and all orders for this visit: 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 and without status migrainosus Paresthesia of skin She should return to see me prn. [facility] Work Phone: 11-25-2023 Miscellaneous Notes Physician: Dr. Don Call from pharmacy requesting refill. Please E-Scribe Last OV: 11/28/[address] Don Future OV: 10/13/[address] Cuellar Please confirm if the message should be for Dr. Don or Dr. Cuellar. Thank you Requested Prescriptions Pending Prescriptions Disp Refills eletriptan (RELPAX) 20 mg tablet 12 tablet 0 Sig: Take 1 tablet (20 mg) by mouth as needed. May repeat dose after 2 hours if needed. Maximum daily dose is 80 mg per day. Pharmacy Name: [facility] Phone #: [phone] 10/13/2023 - Dr. Cuellar ASSESSMENT: -Bilateral occipital neuralgia RECOMMENDATIONS: -Bilateral occipital nerve block today -Follow up as needed. Elly Cuellar MD 08/01/23 Dr. Don Assessment & Plan: Yolande Gomes is a 42 year old female with a history of hypothyroidism, migraine. Her examination demonstrates no neurologic deficits. Patient presents for evaluation of migraines as well as multiple different neurologic symptoms starting in June. Notes that she followed with Dr. Don at the end of April and was put on Topamax 50 mg, magnesium 500 mg for preventative relief of migraine and Relpax for abortive relief. In June of this year she began experiencing pain, paresthesias, crawling sensation from her scalp and into her shoulders, intermittent and at different locations. Also experiencing numbness in her hands, pain in her feet, hips. Also reporting significant fatigue, confusion and brain fog. Also reporting some changes in her taste as well. No other etiology for onset that she can think of. Patient's neurologic exam is very reassuring. Does note that her current regimen has decreased her headaches, but discussed that many of the symptoms she is experiencing are likely secondary from the Topamax. Discussed stopping this medication and patient agrees. Patient without any history of seizures or epilepsy. Encouraged her to continue with magnesium, also educated her on additional supplements that may beneficial as preventative treatment as well. Will continue with Relpax as an abortive therapy. Patient already has appointment with Dr. Don scheduled for next week encouraged her to follow-up. Will reach out to Dr. Don to see if any additional testing or workup is needed. Patient agreeable to treatment plan of care at this time, questions were answered. Patient follow-up as needed. Yolande was seen today for established patient. Diagnoses and all orders for this visit: 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 and without status migrainosus Paresthesia of skin She should return to see me prn. documented in this encounter [facility] 11-21-2023 Telephone encounter Note Pharmacy verified in [employer]. Patient has been identified by name and date of : Yes Patient aware RX will be sent to pharmacy. No need to notify patient. Pharmacy phones for refill(s): Requested Prescriptions Pending Prescriptions Disp Refills eletriptan (RELPAX) 20 mg tablet 12 tablet 19 Sig: May repeat dose after 2 hours if needed. Maximum daily dose is 80 mg per day. Date of last office visit : 05/15/2023 Date of next office visit : 11/28/2023 Last 2 Encounter Wt Readings: Date: Wt: 10/13/2023 70.3 kg (155 lb) 09/16/2023 70.7 kg (155 lb 13.8 oz) Please advise. Marina Irvin MA [facility] 11-21-2023 Miscellaneous Notes Pharmacy verified in [facility]. Patient has been identified by name and date of : Yes Patient aware RX will be sent to pharmacy. No need to notify patient. Pharmacy phones for refill(s): Requested Prescriptions Pending Prescriptions Disp Refills eletriptan (RELPAX) 20 mg tablet 12 tablet 19 Sig: May repeat dose after 2 hours if needed. Maximum daily dose is 80 mg per day. Date of last office visit : 05/15/2023 Date of next office visit : 11/28/2023 Last 2 Encounter Wt Readings: Date: Wt: 10/13/2023 70.3 kg (155 lb) 09/16/2023 70.7 kg (155 lb 13.8 oz) Please advise. Marina Irvin MA documented in this encounter [facility] 2023 Telephone encounter Note Pharmacy verified in [facility]. Patient has been identified by name and date of : Yes Patient aware RX will be sent to pharmacy. No need to notify patient. Pharmacy phones for refill(s): Requested Prescriptions Pending Prescriptions Disp Refills eletriptan (RELPAX) 20 mg tablet [Pharmacy Med Name: ELETRIPTAN HBR TABS 1'S 20MG] 12 tablet 19 Sig: TAKE 1 TABLET NEEDED AT ONSET OF MIGRAINE HEADACHE (SEE ADMINISTRATION INSTRUCTIONS) MAX 2 IN 24 HOURS Date of last office visit : 05/15/2023 Date of next office visit : 11/28/2023 Last 2 Encounter Wt Readings: Date: Wt: 10/13/2023 70.3 kg (155 lb) 09/16/2023 70.7 kg (155 lb 13.8 oz) Please advise. Marina Irvin MA [facility] 2023 Miscellaneous Notes Pharmacy verified in [employer]. Patient has been identified by name and date of : Yes Patient aware RX will be sent to pharmacy. No need to notify patient. Pharmacy phones for refill(s): Requested Prescriptions Pending Prescriptions Disp Refills eletriptan (RELPAX) 20 mg tablet [Pharmacy Med Name: ELETRIPTAN HBR TABS 1'S 20MG] 12 tablet 19 Sig: TAKE 1 TABLET NEEDED AT ONSET OF MIGRAINE HEADACHE (SEE ADMINISTRATION INSTRUCTIONS) MAX 2 IN 24 HOURS Date of last office visit : 05/15/2023 Date of next office visit : 11/28/2023 Last 2 Encounter Wt Readings: Date: Wt: 10/13/2023 70.3 kg (155 lb) 09/16/2023 70.7 kg (155 lb 13.8 oz) Please advise. Marina Irvin MA documented in this encounter [facility] 10-13-2023 Note HNO ID: [id number] Author: ELLY CUELLAR MD Service: ? Author Type: Physician Type: Procedures Filed: 10/13/2023 13:26 Note Text: Occipital Nerve Block procedure note: Responsible practitioner performing the procedure(s)/treatment(s): Elly Cuellar Practitioner obtaining the consent: Elly Cuellar Procedure(s)/treatment(s): Occipital nerve block Consent Source: Patient Consent DEPARTMENT of NEUROLOGY UNIVERSAL PROTOCOL / SAFETY CHECKLIST Procedure to be Performed: Occipital nerve block Sign In: A Moment of CARE was completed. Personnel directly involved with the procedure wore the appropriate PPE (Personal Protective Equipment). Patient/Surrogate Stated/Verified: PATIENT VERIFIED(optional for EMERGENT procedures): Patient name, Date of , Relevant allergies and The intended procedure Time Out Communication: Intended patient and procedure match the source documents. Consent documented and matches the intended procedure. No relevant labs, photos, and/or imaging studies were applicable for review. No correct side/site applicable for marking and visibility. Medications required for procedure verified. No fire risk assessment and interventions applicable. No implant(s) inserted. Sign Out: SIGN OUT (optional for EMERGENT procedures): No specimen collected. No instruments, equipment or retained foreign bodies applicable. Post-procedure follow-up management communicated and Plan of Care Visit completed when applicable. Bilateral Occipital Nerve Block: Dx: Occipital neuralgia Consent: In [facility] Informational guide about Occipital nerve block given - no allergies to steroid or anesthetic - no surgeries or hx of trauma in occipital area - no recent steroid injections for other indications - control Procedure: The patient was placed in a seated position. The site of pain and procedure were confirmed with the patient prior to starting the procedure. The patient's nuchal ridge of the occipital bone was identified and prepped with well with chlorhexidine x 3. A 31 Gauge 1/2 inch needle was advanced through the skin and subcutaneous tissues lateral to the occipital protuberance in the area of the Greater Occipital Nerve bilaterally. Aspiration for blood and CSF was negative. FOR DEBRA: The needle was again repositioned 2 cm laterally. This area was injected with 1 cc of fluid after ensuring there was no obstruction or back flow of blood. A total of 6 cc of bupivacaine 0.25% and 40 mg of Kenalog was injected. Needle was then removed and bleeding was nil. Elly Cuellar MD [facility] Neu[facility] [place] [facility] 10-13-2023 Procedure note Occipital Nerve Block procedure note: Responsible practitioner performing the procedure(s)/treatment(s): Elly Cuellar Practitioner obtaining the consent: Elly Cuellar Procedure(s)/treatment(s): Occipital nerve block Consent Source: Patient Consent DEPARTMENT of NEUROLOGY UNIVERSAL PROTOCOL / SAFETY CHECKLIST Procedure to be Performed: Occipital nerve block Sign In: A Moment of CARE was completed. Personnel directly involved with the procedure wore the appropriate PPE (Personal Protective Equipment). Patient/Surrogate Stated/Verified: PATIENT VERIFIED(optional for EMERGENT procedures): Patient name, Date of , Relevant allergies and The intended procedure Time Out Communication: Intended patient and procedure match the source documents. Consent documented and matches the intended procedure. No relevant labs, photos, and/or imaging studies were applicable for review. No correct side/site applicable for marking and visibility. Medications required for procedure verified. No fire risk assessment and interventions applicable. No implant(s) inserted. Sign Out: SIGN OUT (optional for EMERGENT procedures): No specimen collected. No instruments, equipment or retained foreign bodies applicable. Post-procedure follow-up management communicated and Plan of Care Visit completed when applicable. Bilateral Occipital Nerve Block: Dx: Occipital neuralgia Consent: In [facility] Informational guide about Occipital nerve block given - no allergies to steroid or anesthetic - no surgeries or hx of trauma in occipital area - no recent steroid injections for other indications - control Procedure: The patient was placed in a seated position. The site of pain and procedure were confirmed with the patient prior to starting the procedure. The patient's nuchal ridge of the occipital bone was identified and prepped with well with chlorhexidine x 3. A 31 Gauge 1/2 inch needle was advanced through the skin and subcutaneous tissues lateral to the occipital protuberance in the area of the Greater Occipital Nerve bilaterally. Aspiration for blood and CSF was negative. FOR DEBRA: The needle was again repositioned 2 cm laterally. This area was injected with 1 cc of fluid after ensuring there was no obstruction or back flow of blood. A total of 6 cc of bupivacaine 0.25% and 40 mg of Kenalog was injected. Needle was then removed and bleeding was nil. Elly Cuellar MD [facility] Neurological [place] [facility] 10-13-2023 Procedure note Occipital Nerve Block procedure note: Responsible practitioner performing the procedure(s)/treatment(s): Elly Cuellar Practitioner obtaining the consent: Elly Cuellar Procedure(s)/treatment(s): Occipital nerve block Consent Source: Patient Consent DEPARTMENT of NEUROLOGY UNIVERSAL PROTOCOL / SAFETY CHECKLIST Procedure to be Performed: Occipital nerve block Sign In: A Moment of CARE was completed. Personnel directly involved with the procedure wore the appropriate PPE (Personal Protective Equipment). Patient/Surrogate Stated/Verified: PATIENT VERIFIED(optional for EMERGENT procedures): Patient name, Date of , Relevant allergies and The intended procedure Time Out Communication: Intended patient and procedure match the source documents. Consent documented and matches the intended procedure. No relevant labs, photos, and/or imaging studies were applicable for review. No correct side/site applicable for marking and visibility. Medications required for procedure verified. No fire risk assessment and interventions applicable. No implant(s) inserted. Sign Out: SIGN OUT (optional for EMERGENT procedures): No specimen collected. No instruments, equipment or retained foreign bodies applicable. Post-procedure follow-up management communicated and Plan of Care Visit completed when applicable. Bilateral Occipital Nerve Block: Dx: Occipital neuralgia Consent: In [facility] Informational guide about Occipital nerve block given - no allergies to steroid or anesthetic - no surgeries or hx of trauma in occipital area - no recent steroid injections for other indications - control Procedure: The patient was placed in a seated position. The site of pain and procedure were confirmed with the patient prior to starting the procedure. The patient's nuchal ridge of the occipital bone was identified and prepped with well with chlorhexidine x 3. A 31 Gauge 1/2 inch needle was advanced through the skin and subcutaneous tissues lateral to the occipital protuberance in the area of the Greater Occipital Nerve bilaterally. Aspiration for blood and CSF was negative. FOR DEBRA: The needle was again repositioned 2 cm laterally. This area was injected with 1 cc of fluid after ensuring there was no obstruction or back flow of blood. A total of 6 cc of bupivacaine 0.25% and 40 mg of Kenalog was injected. Needle was then removed and bleeding was nil. Elly Cuellar MD [facility] [place] documented in this encounter [facility] 10-13-2023 Note HNO ID: [id number] Author: ELLY CUELLAR MD Service: ? Author Type: Physician Type: Progress Notes Filed: 10/13/2023 13:26 Note Text: PROGRESS NOTE-HEADACHE MEDICINE SERVICE DATE: October 13, 2023 Participants: Patient, mother and Provider Subjective HPI: Yolande Valle [place] is here for nerve block, last seen on 08/08/2023. See pain description from that note. Pain unchanged. Outpatient Medications as of 10/13/2023 Medication Sig levothyroxine (SYNTHROID) 100 mcg tablet Take 1 tablet on 5 days of the week, skip on 2 days of the week (may be Friday and Friday) Magnesium 200 mg tab Take by mouth. SEMAGLUTIDE, WEIGHT LOSS, SUBCUTANEOUS Inject 70 Units subcutaneously one time a week. eletriptan (RELPAX) 20 mg tablet Take 1 tablet (20 mg) by mouth as needed for migraine headache (see administration instructions) (2 max in 24 hours). at the onset of migraine headache. spironolactone (ALDACTONE) 50 mg tablet FLUoxetine HCl 20 mg tablet Take 20 mg by mouth once daily. VITAMIN B COMPLEX-100 ORAL Take 1 tablet by mouth once daily. Facility-Administered Medications as of 10/13/2023 Medication Dose Route Frequency [COMPLETED] triamcinolone acetonide 40 mg injection (KeNALog 40) 40 mg INTRALESIONAL ONCE [COMPLETED] bupivacaine (PF) 0.25 % (2.5 mg/mL) 12 mg injection (SENSORCAINE MPF) 12 mg peripheral nerve block ONCE PAST MEDICAL HISTORY No date: Dysmenorrhea No date: Dyspareunia No date: Hypothyroidism Comment: also known nodule 02/24/2006: Papanicolaou smear of cervix with low grade squamous intraepithelial lesion (LGSIL) No date: PMH - PAST MEDICAL HISTORY OF Comment: bipolar, borderline personality disorder ALLERGIES Allergen Reactions Penicillins Anaphylaxis PHYSICAL EXAM: BP 120/87 (BP Site: Left Arm, BP Position: Sitting, BP Cuff Size: Regular Adult) Pulse 83 Temp 36.7 ?C (98 ?F) Ht 157.5 cm (5' 2) Wt 70.3 kg (155 lb) LMP 07/29/2023 (Exact Date) SpO2 100% BMI 28.35 kg/m? Neck is supple, full range of motion, no pain to extension or flexion or [id number] movement. Skin over the neck is intact. Palpation of sub-occipital area bilaterally triggers pain. ASSESSMENT: -Bilateral occipital neuralgia RECOMMENDATIONS: -Bilateral occipital nerve block today -Follow up as needed. Elly Cuellar MD [facility] Neurological [facility] 10-13-2023 History of Present illness Narrative PROGRESS NOTE-HEADACHE MEDICINE SERVICE DATE: October 13, 2023 Participants: Patient, mother and Provider Subjective HPI: Yolande Gomes is here for nerve block, last seen on 08/08/2023. See pain description from that note. Pain unchanged. Outpatient Medications as of 10/13/2023 Medication Sig levothyroxine (SYNTHROID) 100 mcg tablet Take 1 tablet on 5 days of the week, skip on 2 days of the week (may be Friday and Friday) Magnesium 200 mg tab Take by mouth. SEMAGLUTIDE, WEIGHT LOSS, SUBCUTANEOUS Inject 70 Units subcutaneously one time a week. eletriptan (RELPAX) 20 mg tablet Take 1 tablet (20 mg) by mouth as needed for migraine headache (see administration instructions) (2 max in 24 hours). at the onset of migraine headache. spironolactone (ALDACTONE) 50 mg tablet FLUoxetine HCl 20 mg tablet Take 20 mg by mouth once daily. VITAMIN B COMPLEX-100 ORAL Take 1 tablet by mouth once daily. Facility-Administered Medications as of 10/13/2023 Medication Dose Route Frequency [COMPLETED] triamcinolone acetonide 40 mg injection (KeNALog 40) 40 mg INTRALESIONAL ONCE [COMPLETED] bupivacaine (PF) 0.25 % (2.5 mg/mL) 12 mg injection (SENSORCAINE MPF) 12 mg peripheral nerve block ONCE PAST MEDICAL HISTORY No date: Dysmenorrhea No date: Dyspareunia No date: Hypothyroidism Comment: also known nodule 02/24/2006: Papanicolaou smear of cervix with low grade squamous intraepithelial lesion (LGSIL) No date: PMH - PAST MEDICAL HISTORY OF Comment: bipolar, borderline personality disorder ALLERGIES Allergen Reactions Penicillins Anaphylaxis PHYSICAL EXAM: BP 120/87 (BP Site: Left Arm, BP Position: Sitting, BP Cuff Size: Regular Adult) Pulse 83 Temp 36.7 C (98 F) Ht 157.5 cm (5' 2) Wt 70.3 kg (155 lb) LMP 07/29/2023 (Exact Date) SpO2 100% BMI 28.35 kg/m Neck is supple, full range of motion, no pain to extension or flexion or [id number] movement. Skin over the neck is intact. Palpation of sub-occipital area bilaterally triggers pain. ASSESSMENT: -Bilateral occipital neuralgia RECOMMENDATIONS: -Bilateral occipital nerve block today -Follow up as needed. Elly Cuellar MD [facility] documented in this encounter [facility] 09-17-2023 Note HNO ID: [id number] Author: ELLY CUELLAR MD Service: ? Author Type: Physician Type: Progress Notes Filed: 09/17/2023 14:14 Note Text: Patient came for a nerve block but it was not approved by his insurance so we will cancel this appointment. Elly Cuellar MD [facility] 09-17-2023 History of Present illness Narrative Patient came for a nerve block but it was not approved by his insurance so we will cancel this appointment. Elly Cuellar MD [facility] documented in this encounter [facility] 08-31-2023 Telephone encounter Note Result management note sent to patient [facility] 08-31-2023 Miscellaneous Notes Result management note sent to patient documented in this encounter [facility] 08-29-2023 Telephone encounter Note [employer] message last read by Yolande Gomes at 5:26 AM on 08/28/2023. Emma Carl [facility] 08-29-2023 Miscellaneous Notes [employer] message last read by Yolande Gomes at 5:26 AM on 08/28/2023. Emma Carl Due to an unplanned change in Dr. Don's schedule, Patient's appt on 08/29/2023 has been cancelled. Called Patient-no answer, unable to leave voicemail. Patient notified of cancellation via MyChart. Emma Carl documented in this encounter [facility] 08-27-2023 Telephone encounter Note Due to an unplanned change in Dr. Don's schedule, Patient's appt on 08/29/2023 has been cancelled. Called Patient-no answer, unable to leave voicemail. Patient notified of cancellation via MyChart. Emma Carl [facility] 08-18-2023 Instructions Glory Armstrong MD - 08/18/2023 9:17 AM EDT Please do labs- pending results, we shall adjust dose as needed and convert to levothyroxine with repeat labs 8 weeks documented in this encounter [facility] 08-18-2023 Note HNO ID: [id number] Author: GLORY ARMSTRONG MD Service: ? Author Type: Physician Type: Progress Notes Filed: 08/18/2023 23:59 Note Text: [facility] Initial Clinic Visit Note History of Present Illness: Yolande Gomes is a 42 year old female here to establish care for hypothyroidism. How hypothyroidism was discovered: 2 years ago- she had significant weight gain (difficulty losing weight despite diet and exercise, but has stabilized Current treatment: [employer] thyroid 30 mg daily, 60 mg on MWF Prior treatment: [employer] thyroid 30 mg daily, last dose change in Nov 2022 General symptoms: Fatigue: lethargic. 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 Magnesium 200 mg tab Take by mouth. SEMAGLUTIDE, WEIGHT LOSS, SUBCUTANEOUS Inject 70 Units subcutaneously one time a week. 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 Also takes additional 30 mg equaling (60 mg) Fri eletriptan (RELPAX) 20 mg tablet Take 1 tablet (20 mg) by mouth as needed for migraine headache (see administration instructions) (2 max in 24 hours). at the onset of migraine headache. spironolactone (ALDACTONE) 50 mg tablet FLUoxetine HCl 20 mg tablet Take 20 mg by mouth once daily. VITAMIN B COMPLEX-100 ORAL Take 1 tablet by mouth once daily. cholecalciferol (VITAMIN D) 1,000 unit tab Take 1,000 Units by mouth once daily. (Patient not taking: Reported on 08/18/2023) No current facility-administered medications on file prior to visit. PAST MEDICAL HISTORY: PAST MEDICAL HISTORY Diagnosis Date Dysmenorrhea Dyspareunia Hypothyroidism also known nodule Papanicolaou smear of cervix with low grade squamous intraepithelial lesion (LGSIL) 02/24/2006 PMH - PAST MEDICAL HISTORY OF bipolar, borderline personality disorder PAST SURGICAL HISTORY: PAST SURGICAL HISTORY Procedure Laterality Date PAST SURGICAL HISTORY OF tonsils FAMILY HISTORY: FAMILY HISTORY Problem Relation Age of Onset Cancer Maternal Grandfather unknown Heart Paternal Grandfather Stroke Paternal Grandfather Hypertension Maternal Grandmother SOCIAL HISTORY: Social History Tobacco Use Smoking status: Never Smokeless tobacco: Former Types: Chew Tobacco comments: For 3 years Substance Use Topics Alcohol use: Yes Comment: occasionally Drug use: No PHYSICAL EXAM: BP 112/76 Pulse 101 Temp 37 ?C (98.6 ?F) (Temporal Artery) Ht 160 cm (5' 3) Wt 71.8 kg (158 lb 6.4 oz) LMP 07/29/2023 (Exact Date) SpO2 99% BMI 28.06 kg/m? Last 3 Encounter Wt Readings: Date: Wt: 08/18/2023 71.8 kg (158 lb 6.4 oz) 08/01/2023 71.1 kg (156 lb 12 oz) 07/22/2023 71.2 kg (157 lb) General: Alert and oriented x3, no acute distress Eyes: Anicteric sclera. Pupils are equally round. Extraocular movements are intact. Neck supple, no cervical lymphadenopathy Thyroid: normal size, normal texture, no palpable nodules Lungs: Breathing unlabored, clear to auscultation. No wheezing, rhonchi, rales Heart regular rate and rhythm, no murmur Musculoskeletal: Muscular strength intact, No joint swelling, deformity, or tenderness Neuro: Gait normal. Sensation grossly intact. No focal findings Abdomen:Normal abdominal sounds, non tender to palpation Extremities: without edema, no deformities Skin: no rashes/ erythema LABS: Latest Ref Rng 10/22/2019 04/10/2023 06/20/2023 TSH 0.270 - 4.200 mIU/L 2.460 0.818 Free T3 2.3 - 4.1 pg/mL 3.2 Thyroglobulin Ab, Serum <4.0 IU/mL <0.9 ASSESSMENT/PLAN: Acquired hypothyroidism: Discussed side effects of combination therapy and she would like to switch [employer] thyroid to levothyroxine Labs in May 2023 within normal and discussed her symptoms less likely due to thyroid, but discussed repeating labs and adjusting doses pending labs with switching to levothyroxine. Once changed to LT4 , discussed repeating labs in 8 weeks again. Follow up in 3 months I spent a total of 49 minutes on the date of the service which included preparing to see the patient, [id number] patient care, comp (more content not included)... [facility] 08-18-2023 History of Present illness Narrative [facility] Initial Clinic Visit Note History of Present Illness: Yolande Gomes is a 42 year old female here to establish care for hypothyroidism. How hypothyroidism was discovered: 2 years ago- she had significant weight gain (difficulty losing weight despite diet and exercise, but has stabilized Current treatment: [employer] thyroid 30 mg daily, 60 mg on MWF Prior treatment: [employer] thyroid 30 mg daily, last dose change in Nov 2022 General symptoms: Fatigue: lethargic. 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 Magnesium 200 mg tab Take by mouth. SEMAGLUTIDE, WEIGHT LOSS, SUBCUTANEOUS Inject 70 Units subcutaneously one time a week. 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 Also takes additional 30 mg equaling (60 mg) Fri eletriptan (RELPAX) 20 mg tablet Take 1 tablet (20 mg) by mouth as needed for migraine headache (see administration instructions) (2 max in 24 hours). at the onset of migraine headache. spironolactone (ALDACTONE) 50 mg tablet FLUoxetine HCl 20 mg tablet Take 20 mg by mouth once daily. VITAMIN B COMPLEX-100 ORAL Take 1 tablet by mouth once daily. cholecalciferol (VITAMIN D) 1,000 unit tab Take 1,000 Units by mouth once daily. (Patient not taking: Reported on 08/18/2023) No current facility-administered medications on file prior to visit. PAST MEDICAL HISTORY: PAST MEDICAL HISTORY Diagnosis Date Dysmenorrhea Dyspareunia Hypothyroidism also known nodule Papanicolaou smear of cervix with low grade squamous intraepithelial lesion (LGSIL) 02/24/2006 PMH - PAST MEDICAL HISTORY OF bipolar, borderline personality disorder PAST SURGICAL HISTORY: PAST SURGICAL HISTORY Procedure Laterality Date PAST SURGICAL HISTORY OF tonsils FAMILY HISTORY: FAMILY HISTORY Problem Relation Age of Onset Cancer Maternal Grandfather unknown Heart Paternal Grandfather Stroke Paternal Grandfather Hypertension Maternal Grandmother SOCIAL HISTORY: Social History Tobacco Use Smoking status: Never Smokeless tobacco: Former Types: Chew Tobacco comments: For 3 years Substance Use Topics Alcohol use: Yes Comment: occasionally Drug use: No PHYSICAL EXAM: BP 112/76 Pulse 101 Temp 37 C (98.6 F) (Temporal Artery) Ht 160 cm (5' 3) Wt 71.8 kg (158 lb 6.4 oz) LMP 07/29/2023 (Exact Date) SpO2 99% BMI 28.06 kg/m Last 3 Encounter Wt Readings: Date: Wt: 08/18/2023 71.8 kg (158 lb 6.4 oz) 08/01/2023 71.1 kg (156 lb 12 oz) 07/22/2023 71.2 kg (157 lb) General: Alert and oriented x3, no acute distress Eyes: Anicteric sclera. Pupils are equally round. Extraocular movements are intact. Neck supple, no cervical lymphadenopathy Thyroid: normal size, normal texture, no palpable nodules Lungs: Breathing unlabored, clear to auscultation. No wheezing, rhonchi, rales Heart regular rate and rhythm, no murmur Musculoskeletal: Muscular strength intact, No joint swelling, deformity, or tenderness Neuro: Gait normal. Sensation grossly intact. No focal findings Abdomen:Normal abdominal sounds, non tender to palpation Extremities: without edema, no deformities Skin: no rashes/ erythema LABS: Latest Ref Rng 10/22/2019 04/10/2023 06/20/2023 TSH 0.270 - 4.200 mIU/L 2.460 0.818 Free T3 2.3 - 4.1 pg/mL 3.2 Thyroglobulin Ab, Serum <4.0 IU/mL <0.9 ASSESSMENT/PLAN: Acquired hypothyroidism: Discussed side effects of combination therapy and she would like to switch [employer] thyroid to levothyroxine Labs in May 2023 within normal and discussed her symptoms less likely due to thyroid, but discussed repeating labs and adjusting doses pending labs with switching to levothyroxine. Once changed to LT4 , discussed repeating labs in 8 weeks again. Follow up in 3 months I spent a total of 49 minutes on the date of the service which included preparing to see the patient, [id number] patient care, completing clinical documentation, obtaining and/or reviewing separately obtained history, performing a medically appropriate examination, counseling and educating the patient/family/caregiver, ordering medications, tests, or procedures, and independently interpreting results (not separately reported). Glory Armstrong MD Endocrinology Associate Staff [facility] Endocrinology and Metabolism [place] [phone] documented in this encounter [facility] 08-08-2023 Note HNO ID: [id number] Author: ELLY CUELLAR MD Service: ? Author Type: Physician Type: Progress Notes Filed: 08/08/2023 14:45 Note Text: DISTANCE HEALTH VISIT I have communicated my name and active licensure. The patient's identity and physical location were verified at the time of this visit. Either the patient or their legal customer success representative has been informed of the risks and benefits of -- and alternatives to -- treatment through a remote evaluation and consents to proceed with the evaluation remotely. Total time spent on medical discussion: 30 minutes Elly Cuellar MD INITIAL CONSULT - HEADACHE MEDICINE SERVICE DATE: 08/08/2023 Participants: Patient and Provider Subjective HPI: Yolande Gomes is a 42 year old year old female with a chief complaint of headache. Patient has a long history of migraines and has seen several [facility] providers for those. She is here for a different kind of head pain. She said it started without a precipitant earlier in the year and has been worse since June. Has become pretty constant. She describes it as attacks of sharp pain bilateral, starting suboccipital and radiating up to top of head. Sharp attacks are short lasting and are followed by burning pain in same distribution. She also describes tingliness over that same distribution. No other associated symptoms. Outpatient Medications as of 08/08/2023 Medication Sig SEMAGLUTIDE, WEIGHT LOSS, SUBCUTANEOUS Inject 70 Units subcutaneously one time a week. 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 Also takes additional 30 mg equaling (60 mg) Fri topiramate (TOPAMAX) 50 mg tablet Take 1 tablet by mouth daily at bedtime. eletriptan (RELPAX) 20 mg tablet Take 1 tablet (20 mg) by mouth as needed for migraine headache (see administration instructions) (2 max in 24 hours). at the onset of migraine headache. spironolactone (ALDACTONE) 50 mg tablet Drospirenone-Ethinyl Estradiol (SUNDAR, 28,) 3-0.02 mg per tablet every 24 hours. FLUoxetine HCl 20 mg tablet Take 20 mg by mouth once daily. VITAMIN B COMPLEX-100 ORAL Take 1 tablet by mouth once daily. cholecalciferol (VITAMIN D) 1,000 unit tab Take 1,000 Units by mouth once daily. No current facility-administered medications on file as of 08/08/2023. PAST MEDICAL HISTORY Diagnosis Date Dysmenorrhea Dyspareunia Hypothyroidism also known nodule Papanicolaou smear of cervix with low grade squamous intraepithelial lesion (LGSIL) 02/24/2006 PMH - PAST MEDICAL HISTORY OF bipolar, borderline personality disorder ALLERGIES Allergen Reactions Penicillins Anaphylaxis PHYSICAL EXAM: via virtual observation General appearance: Well appearing, alert, in no acute distress, well-hydrated, well nourished. Skin: no jaundice Head: Normocephalic, no masses, atraumatic. Eyes: Anicteric sclera. Extraocular movements are grossly intact. 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 Elly Cuellar MD [facility] Neurological [place] [facility] 08-08-2023 History of Present illness Narrative DISTANCE HEALTH VISIT I have communicated my name and active licensure. The patient's identity and physical location were verified at the time of this visit. Either the patient or their legal customer success representative has been informed of the risks and benefits of -- and alternatives to -- treatment through a remote evaluation and consents to proceed with the evaluation remotely. Total time spent on medical discussion: 30 minutes Elly Cuellar MD INITIAL CONSULT - HEADACHE MEDICINE SERVICE DATE: 08/08/2023 Participants: Patient and Provider Subjective HPI: Yolande Gomes is a 42 year old year old female with a chief complaint of headache. Patient has a long history of migraines and has seen several [facility] providers for those. She is here for a different kind of head pain. She said it started without a precipitant earlier in the year and has been worse since June. Has become pretty constant. She describes it as attacks of sharp pain bilateral, starting suboccipital and radiating up to top of head. Sharp attacks are short lasting and are followed by burning pain in same distribution. She also describes tingliness over that same distribution. No other associated symptoms. Outpatient Medications as of 08/08/2023 Medication Sig SEMAGLUTIDE, WEIGHT LOSS, SUBCUTANEOUS Inject 70 Units subcutaneously one time a week. 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 Also takes additional 30 mg equaling (60 mg) Fri topiramate (TOPAMAX) 50 mg tablet Take 1 tablet by mouth daily at bedtime. eletriptan (RELPAX) 20 mg tablet Take 1 tablet (20 mg) by mouth as needed for migraine headache (see administration instructions) (2 max in 24 hours). at the onset of migraine headache. spironolactone (ALDACTONE) 50 mg tablet Drospirenone-Ethinyl Estradiol (SUNDAR, 28,) 3-0.02 mg per tablet every 24 hours. FLUoxetine HCl 20 mg tablet Take 20 mg by mouth once daily. VITAMIN B COMPLEX-100 ORAL Take 1 tablet by mouth once daily. cholecalciferol (VITAMIN D) 1,000 unit tab Take 1,000 Units by mouth once daily. No current facility-administered medications on file as of 08/08/2023. PAST MEDICAL HISTORY Diagnosis Date Dysmenorrhea Dyspareunia Hypothyroidism also known nodule Papanicolaou smear of cervix with low grade squamous intraepithelial lesion (LGSIL) 02/24/2006 PMH - PAST MEDICAL HISTORY OF bipolar, borderline personality disorder ALLERGIES Allergen Reactions Penicillins Anaphylaxis PHYSICAL EXAM: via virtual observation General appearance: Well appearing, alert, in no acute distress, well-hydrated, well nourished. Skin: no jaundice Head: Normocephalic, no masses, atraumatic. Eyes: Anicteric sclera. Extraocular movements are grossly intact. 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 MD [facility] [place] documented in this encounter [facility] 08-07-2023 Telephone encounter Note Received voicemail 08-07-23 at 10:20 AM. Vicki my name is Yoladne Gomes. My date of is [birth year]. My phone number is [phone]. I am returning Ioana's phone call. A patient of Dr. Don. Thank you. Call back to patient. Advised that there is no testing that would be needed prior to appointment. She states she needed to get in with someone CATIE, so she actually has an appointment with Dr. Cuellar tomorrow for migraine. [facility] 08-07-2023 Miscellaneous Notes Received voicemail 08-07-23 at 10:20 AM. Vicki my name is Yolande Gomes. My date of is [birth year]. My phone number is [phone]. I am returning Ioana's phone call. A patient of Dr. Don. Thank you. Call back to patient. Advised that there is no testing that would be needed prior to appointment. She states she needed to get in with someone CATIE, so she actually has an appointment with Dr. Cuellar tomorrow for migraine. Call to patient. No answer. Left voicemail to return call. Call to patient. No answer. Mailbox full, unable to leave voicemail. No need for any type of additional testing prior to follow up appointment with Dr. Don. If any additional testing is necessary, Dr. Don will order at appointment. Due to an unexpected change in Dr. Don's schedule, Patient's appt on 08/08/2023 has been cancelled/rescheduled to 08/29/2023. Patient does have the following question(s) for Clinical staff in the meantime: Per office visit with Makayla Jacobs PA-C on 08/01/2023: ...discussed that many of the symptoms she [the patient] is experiencing are likely secondary from the Topamax. Discussed stopping this medication and patient agrees. Patient without any history of seizures or epilepsy. Encouraged her to continue with magnesium, also educated her on additional supplements that may beneficial as preventative treatment as well. Will continue with Relpax as an abortive therapy. Patient already has appointment with Dr. Don scheduled for next week encouraged her to follow-up. Will reach out to Dr. Don to see if any additional testing or workup is needed. Patient asking if there is any testing (labs, imaging, etc.) that would be beneficial to complete prior to her next appointment with Dr. Don? Please advise and call Patient at [phone] (work phone) with recommendations. Emma Carl documented in this encounter [facility] 08-07-2023 Telephone encounter Note Call to patient. No answer. Left voicemail to return call. [facility] 08-06-2023 Telephone encounter Note Call to patient. No answer. Mailbox full, unable to leave voicemail. No need for any type of additional testing prior to follow up appointment with Dr. Don. If any additional testing is necessary, Dr. Don will order at appointment. [facility] 08-05-2023 Telephone encounter Note Referral submitted to [facility] Contact Center ([phone]). They will contact the patient to schedule. Confirmation number: [id number] Arleen Galarza August 05, 2023 10:42 AM [facility] 08-05-2023 Miscellaneous Notes Referral submitted to [facility] ([phone]). They will contact the patient to schedule. Confirmation number: [id number] Arleen Galarza August 05, 2023 10:42 AM documented in this encounter [facility] 08-04-2023 Telephone encounter Note Due to an unexpected change in Dr. Don's schedule, Patient's appt on 08/08/2023 has been cancelled/rescheduled to 08/29/2023. Patient does have the following question(s) for Clinical staff in the meantime: Per office visit with Makayla Jacobs PA-C on 08/01/2023: ...discussed that many of the symptoms she [the patient] is experiencing are likely secondary from the Topamax. Discussed stopping this medication and patient agrees. Patient without any history of seizures or epilepsy. Encouraged her to continue with magnesium, also educated her on additional supplements that may beneficial as preventative treatment as well. Will continue with Relpax as an abortive therapy. Patient already has appointment with Dr. Don scheduled for next week encouraged her to follow-up. Will reach out to Dr. Don to see if any additional testing or workup is needed. Patient asking if there is any testing (labs, imaging, etc.) that would be beneficial to complete prior to her next appointment with Dr. Don? Please advise and call Patient at [phone] (work phone) with recommendations. Emma Carl [facility] 08-01-2023 Instructions Makayla Jacobs PA-C - 08/01/2023 2:41 PM EDT Follow up with Dr. Don next week as planned. Stop the topiramate and you can start B2 or other supplements noted below Headache Preventive Treatment: Please keep in mind that it takes 4-6 weeks for the medication to start working well and 2-3 months at the appropriate dose before deciding if it will be useful or not. If it is not helping at all by this time, then we will discuss other medications to try. Supplements may take 3-6 months until you see full effect. Natural supplements: Magnesium Oxide 500 mg at bed Coenzyme Q10 300 mg in AM Vitamin B2- 200 mg twice a day Feverfew 50 mg twice a day Vitamins and herbs that show potential Magnesium: Magnesium (250 mg twice a day or 500 mg at bed) has a relaxant effect on smooth muscles such as blood vessels. Individuals suffering from frequent or daily headache usually have low magnesium levels which can be increase with daily supplementation of 400-750 mg. Three trials found 40-90% average headache reduction when used as a preventative. Magnesium also demonstrated the benefit in menstrually related migraine. Magnesium is part of the messenger system in the serotonin cascade and it is a good muscle relaxant. It is also useful for constipation which can be a side effect of other medications used to treat migraine. Good sources include nuts, whole grains, and tomatoes. Magnesium comes in many different forms: Magnesium glycinate is a good choice for those with a sensitive stomach who have gastrointestinal side effects such as diarrhea with other forms of magnesium. It is anecdotally also helpful with anxiety and sleep. Magnesium threonate also has low risk of gastrointestinal side effects and anecdotally helpful with cognitive function and brain fog symptoms. Magnesium malate has low gastrointestinal side effects and is reportedly more energizing and anecdotally often helpful in fibromyalgia and chronic fatigue syndrome. Magnesium citrate is one of the most studied, popular, and well-absorbed forms of magnesium. It can also be mixed easily with liquids if you can't take pills. However, it comes with a higher risk of diarrhea and gastrointestinal side effects, although this could be helpful for those with constipation. Magnesium oxide is also well studied, cheap, and often used for heartburn and indigestion. However, it is not well absorbed and can have some laxative side effects as well, so can also be helpful for constipation. Riboflavin (vitamin B 2) 200 mg twice a day. This vitamin assists nerve cells in the production of ATP a principal energy storing molecule. It is necessary for many chemical reactions in the body. There have been at least 3 clinical trials of riboflavin using 400 mg per day all of which suggested that migraine frequency can be decreased. All 3 trials showed significant improvement in over half of migraine sufferers. The supplement is found in bread, cereal, milk, meat, and poultry. Most Americans get more riboflavin than the recommended daily allowance, however riboflavin deficiency is not necessary for the supplements to help prevent headache. Feverfew: Feverfew is a common garden herb [place] to [place] and popular in [facility] as a treatment for disorders typically controlled by aspirin. The mechanism of action is unknown but is believed to be related to a chemical called parthenolide which helps the body use serotonin more effectively. Serotonin helps prevent migraine and assists with resolution when it occurs. Parthenolide also inhibits the release of histamine which is linked to pain and inflammation. Consistency of active ingredients in different products can be a problem. Some formulations don't have the active ingredient (parthenolide) that prevents migraine. A parthenolide content of 0.2% is generally recommended. Typical dosage is one capsule 3 times a day. Coenzyme Q10: This is present in almost all cells in the body and is critical component for the conversion of energy. Recent studies have shown that a nutritional supplement of CoQ10 can reduce the frequency of migraine attacks by improving the energy production of cells as with riboflavin. Doses of 150 mg twice a day have been shown to be effective. Melatonin: Increasing evidence shows correlation between melatonin secretion and headache conditions. Melatonin supplementation has decreased headache intensity and duration. It is widely used as a sleep aid. Sleep is natures way of dealing with migraine. A dose of 3 mg is recommended to start for headaches including cluster headache. Higher doses up to 15 mg has been reviewed for use in Cluster headache and have been used. The rationale behind using melatonin for cluster is that many theories regarding the cause of Cluster headache center around the disruption of the normal circadian rhythm in the brain. This helps restore the normal circadian rhythm. Taryn: Taryn has a small amount of antihistamine and anti-inflammatory action which may help headache. It is primarily used for nausea and may aid in the absorption of other medications. HEADACHE DIET: Foods and beverages which may trigger migraine Note that only 20% of headache patients are food sensitive. You will know if you are food sensitive if you get a headache consistently 20 minutes to 2 hours after eating a certain food. Only cut out a food if it causes headaches, otherwise you might remove foods you enjoy! What matters most for diet is to eat a well balanced healthy diet full of vegetables and low fat protein, and to not miss meals. Chocolate, other sweets ALL cheeses except cottage and cream cheese Dairy products, yogurt, sour cream, ice cream Liver Meat extracts (Bovril, Marmite, meat tenderizers) Meats or fish which have undergone aging, fermenting, pickling or smoking. These include: Hotdogs,salami,Lox,sausage, mortadellas,smoked salmon, pepperoni, Pickled france Pods of broad price (Albanian beans, Sami pea pods, Swazi (rodríguez) beans, villafana and navy beans Ripe avocado, ripe banana Yeast extracts or active yeast preparations such as Marquez's or Mal's (commercial bakes goods are permitted) Tomato based foods, pizza (lasagna, etc.) MSG (monosodium glutamate) is disguised as many things; look for these common aliases: Monopotassium glutamate Autolysed yeast Hydrolysed protein Sodium caseinate flavorings all natural preservatives Nutrasweet Avoid all other foods that convincingly provoke headaches. Headache Prevention Strategies: 1. Maintain a headache diary; learn to identify and avoid triggers. Common triggers include: Emotional triggers: Emotional/Upset family or friends Emotional/Upset occupation Business reversal/success Anticipation anxiety Crisis-serious Post-crisis periodNew job/position Physical triggers: Vacation Day Weekend Strenuous Exercise High Altitude Location New Move Day Physical Illness Oversleep/Not enough sleep Weather changes Light: Photophobia or light sesnitivity treatment involves a balance between desensitization and reduction in overly strong input. Use dark polarized glasses outside, but not inside. Avoid bright or fluorescent light, but do not dim environment to the point that going into a normally lit room hurts. Consider FL-41 tint lenses, which reduce the most irritating wavelengths without blocking too much light. These can be obtained at Facebook.ShowMe VIdeoke or [employer]: see list above. 2. Limit use of acute treatments (mtjb-dma-qnmdvzu medications, triptans, etc.) to no more than 2 days per week or 10 days per month to prevent medication overuse headache (rebound headache). 3. Follow a regular schedule (including weekends and holidays): Don't skip meals. Eat a balanced diet. 8 hours of sleep nightly. Minimize stress. Exercise 30 minutes per day. Being overweight is associated with a 5 times increased risk of chronic migraine. Keep well hydrated and drink 6-8 glasses of water per day. 4. Initiate non-pharmacologic measures at the earliest onset of your headache. Rest and quiet environment. Relax and reduce stress. Uvxslpq4Rcbiq is a free zunilda that can instruct you on some simple relaxtion and breathing techniques. Http://TriNovus is a free website that provides teaching videos on relaxation. Also, there are many apps that can be downloaded for mindful relaxation. An zunilda called YOGA NIDRA will help walk you through mindfulness. Cold compresses. 5. Don't wait!! Take the maximum allowable dosage of prescribed medication at the first sign of migraine. 6. Compliance: Take prescribed medication regularly as directed and at the first sign of a migraine. 7. Communicate: Call your physician when problems arise, especially if your headaches change, increase in frequency/severity, or become associated with neurological symptoms (weakness, numbness, slurred speech, etc.). 8. Headache/pain management therapies: Consider various complementary methods, including medication, behavioral therapy, psychological counselling, biofeedback, massage therapy, acupuncture, dry needling, and other modalities. Such measures may reduce the need for medications. Counseling for pain management, where patients learn to function and ignore/minimize their pain, seems to work very well. 9. Recommend changing family's attention and focus away from patient's headaches. Instead, emphasize daily activities. If first question of day is 'How are your headaches/Do you have a headache today?', then patient will constantly think about headaches, thus making them worse. Goal is to re-direct attention away from headaches, toward daily activities and other distractions. 10. Helpful Websites: www.AmericanHeadacheSociety.org www.migrainetrust.org www.headaches.org www.migraine.org.uk www.achenet.org 11. HEADACHE EXPECTATIONS: There are many types of headaches, and only a rare few in which complete relief can be expected. In general, there is no cure for headache, especially migraine based headaches. There is nothing available that completely prevents headaches from occurring, breaking through, or having periodic flare-ups and fluctuations. Regardless of what you are using on a daily basis for prevention, episodic headaches should still be expected, and periods where frequency may escalate and fluctuate are unavoidable. There is no quick fix for most headaches. Furthermore, the longer you have had high frequency headaches (such as chronic daily headache), the longer it will likely take to expect any improvement. In fact, some people will never improve, regardless of how many medications or other treatments we try. Our treatment strategy is to evaluate for possible causes of your headache, although testing is usually always normal, even in cases of daily continuous headaches for years. Most types of headache such as migraine are electrical brain disorders (similar to how epilepsy is an electrical brain disorders). Therefore, there is no testing that will reveal this dysfunctional electrical circuitry such on MRI, or other testing. We try to find a medication that may help lessen the frequency and/or severity of your headaches. The goal is not to completely stop them from happening, although if that happens, great! Different people respond to different medications, and some people just don't respond to anything, so it's usually a matter of trying different options. We can not predict if or when exactly you will respond to a treatment that we provide. Preventive headache medications take 4-6 weeks to start working, and 2-3 months to see full effect, assuming you reach an effective dose. Therefore, calling or messaging frequently because you have a headache flare prior to the 3 month nahum is unlikely to change anything, and unfortunately there is nothing available that will expedite this, so please try to avoid this. Our recommendation will generally be to give it adequate time first. If you are unable to wait it out for medications to work, we can also try IV infusions for some temporary relief. O In general, the best that preventive medications or other treatments (including Botox) are able to offer in migraine management (variable in other headache types) is a 50% improvement in frequency and/or severity of headache. That is our goal, and any additional benefit is considered a bonus. Some people do significantly better than this, others do not get close to this. Therefore, if your headaches are not improving by at least 3 months on your preventive strategy, contact us and we can discuss further adjustments. Keep in mind that complete headache cure is not a realistic expectation. Our Team: The nursing staff, and medical assistants are a major part of YOUR TREATMENT TEAM and will be handling your phone calls, [employer] Messages and inquiries, if any. Unless explicitly told otherwise at the time of your office visit, your study results and ensuing treatment plans will be released via [employer] and discussed during your follow-up appointment. MyChart: Please ask the schedulers to give you an activation code. The main way of communication is by [employer]book[employer] rather than phone lines, so if you have not signed up, please do so. [employer] is also the way that you can review your labs and testing. We are not able to contact everyone to tell them results are normal. If you do not hear back from us regarding testing you have had, it should be considered normal or within normal range. If you have any questions about the results, you are free to message us. [employer] is meant for simple questions regarding medications, possible side effects, or other simple straight forward questions in limited sentences, rather than multiple paragraphs of discussion. [employer] is not meant for, or efficient for these complex questions, extensive questions, extensive medication adjustments, complex new symptoms or concerns. These issues beyond simple questions require a follow up visit with myself, one of our physician assistants, nurse practitioners, or a Virtual Visit via computer or smart phone, as detailed further down. Refills: Please pay attention to when your refills will need to be renewed. Due to the volume of phone calls daily, this could potentially take a few days, although we certainly try to honor your refill requests as soon as we can. You should call at least 1 week in advance of needing a refill to ensure you do not run out of medication. Keep in mind that refill requests on Fridays may not be filled until the following week. In regards to blood work, testing, and radiology reports these are released automatically to the patients. We do not comment on most testing on [employer] in a message or commentary unless there is a concern. You will not receive a message from me of the result unless there is a specific concern of the result I need you to address further in care with us or your primary medical team. Make sure to check your my chart email or zunilda. As an international referral center for syncope, autonomic dysfunction, general neurology, headache care, neuromuscular disease, and other related conditions, seeing patients from across the world, we do not have the resource of time or staffing to address inquiries for accommodations. As such, we do not provide or complete requests for work accommodations, FMLA, disability, or other such forms. We recommend seeking guidance through your primary care provider for these requests. We are happy to provide our office notes from your visits and other tests or evaluations performed through our clinic, which can be made available upon request to assist you with this process. documented in this encounter [facility] 08-01-2023 Note HNO ID: [id number] Author: MAKAYLA JACOBS PA-C Service: ? Author Type: Physician Earthmoving Labourer Type: Progress Notes Filed: 08/01/2023 15:44 Note Text: Neurology Outpatient Clinic Date: August 01, 2023 Patient Name: Yolande Gomes Referring physician: No referring provider defined for this encounter. Primary physician: Isabela Olviera [facility] [place] [address] Reason for Evaluation: head pain Subjective HPI Yolande Gomes is a 42 year old female with history of hypothyroidism who presents for evaluation of paresthesias and headache. Dr. Isabela Olivera, [email or web address].RODO is the PCP. Chart review: Last saw Dr. Don on 05/15/23 for migraines, chronic. Supplements and relpax, started TPM 50mg with FU in 2 months. MyChart message on 07/27/23 I just want to inform Isabela of a new indentation on my scalp as of this morning 07/26. I had sensitivity in that area the later part of the week and some pain and now it is indented. It is located on the right side of my head above my sikh area. B12 was normal. Patient presents for evaluation of multiple neurologic symptoms. Notes that her whole life she has been experiencing migraines, increased February of this year and was experiencing about 6-8 a month with associated dizziness, confusion. Notes that his headaches were very debilitating as well. 1 headache could last 3 to 4 days at a time and Imitrex was no longer working. Saw her primary care and was switched to Maxalt, this was not effective. Then was seen by Dr. Don, general neurology, at the end of April. Was started on Topamax 50 mg, magnesium 500 mg and Relpax for abortive relief. Notes that she has had some moderate benefit in headache reduction since starting these medications. Is now getting 1-2 headaches a month lasting up to 2 days at a time. Does note that the Relpax does help with abortive relief as well. However, in early June she began experiencing multiple different symptoms. Notes that she started experiencing pain specifically from the shoulders up, around the scalp. Notes that she felt as if her skin was crawling, paresthesias throughout the scalp and shoulders. States that she was feeling her scalp and noticed new indentations on her scalp itself. [place] these were very tender but also notes all over scalp tenderness. Also reporting some paresthesias in her hands when she wakes up and occasionally in her feet. Describing some pain throughout as well in similar locations. No falls. No other etiology for onset of symptoms. Has never had any symptoms like this before. Notes that with any manipulation of her hair or scalp she elicits the symptoms. 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 Patient also reporting significant fatigue. Notes that she has had to reduce her hours of work due to the fatigue and discomfort noted above. Also notes that last week she was very fatigued, went home early from work and slept for 2 days straight which is very atypical for her. Also notes increased photophobia at baseline. Prior therapies: Prozac TPM Relpax Aldactone Imitrex NSAIDs MG Labs/Imaging B12 is normal Medications: Current Outpatient Medications Medication Sig Dispense Refill SEMAGLUTIDE, WEIGHT LOSS, SUBCUTANEOUS Inject 70 Units subcutaneously one time a week. 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 Also takes additional 30 mg equaling (60 mg) Fri topiramate (TOPAMAX) 50 mg tablet Take 1 tablet by mouth daily at bedtime. 30 tablet 3 eletriptan (RELPAX) 20 mg tablet Take 1 tablet (20 mg) by mouth as needed for migraine headache (see administration instructions) (2 max in 24 hours). at the onset of migraine headache. 12 tablet 1 spironolactone (ALDACTONE) 50 mg tablet Drospirenone-Ethinyl Estradiol (SUNDAR, 28,) 3-0.02 mg per tablet every 24 hours. FLUoxetine HCl 20 mg tablet Take 20 mg by mouth once daily. VITAMIN B COMPLEX-100 ORAL Take 1 tablet by mouth once daily. cholecalciferol (VITAMIN D) 1,000 unit tab Take 1,000 Units by mouth once daily. No current facility-administered medications for this visit. ROS ROS: Her ROS was positive for that mentioned in the HPI. Otherwise a 10-point ROS was completed and was negative. ALLERGIES Allergen Reactions Penicillins Anaphylaxis Past Medical History: PAST MEDICAL HISTORY Diagnosis Date Dysmenorrhea Dyspareunia Hypothyroidism also known nodule Papanicolaou smear of cervix with low grade squamous intraepithelial lesion (LGSIL) 02/24/2006 PMH - PAST MEDICAL HISTORY OF bipolar, borderline personality disorder Family History: FAMILY HISTORY Problem Relation Age of Onset Cancer Maternal Grandfather unknown Heart Paternal Grandfather S (more content not included)... [facility] 08-01-2023 History of Present illness Narrative Images from the original note were not included. Neurology Outpatient Clinic Date: August 01, 2023 Patient Name: Yolande Gomes Referring physician: No referring provider defined for this encounter. Primary physician: [place] [address] Reason for Evaluation: head pain Subjective HPI Yolande Gomes is a 42 year old female with history of hypothyroidism who presents for evaluation of paresthesias and headache. Dr. Isabela Olivera, MARIXA.CASE AIDE is the PCP. Chart review: Last saw Dr. Don on 05/15/23 for migraines, chronic. Supplements and relpax, started TPM 50mg with FU in 2 months. MyChart message on 07/27/23 I just want to inform Isabela of a new indentation on my scalp as of this morning 07/26. I had sensitivity in that area the later part of the week and some pain and now it is indented. It is located on the right side of my head above my sikh area. B12 was normal. Patient presents for evaluation of multiple neurologic symptoms. Notes that her whole life she has been experiencing migraines, increased February of this year and was experiencing about 6-8 a month with associated dizziness, confusion. Notes that his headaches were very debilitating as well. 1 headache could last 3 to 4 days at a time and Imitrex was no longer working. Saw her primary care and was switched to Maxalt, this was not effective. Then was seen by Dr. Don, general neurology, at the end of April. Was started on Topamax 50 mg, magnesium 500 mg and Relpax for abortive relief. Notes that she has had some moderate benefit in headache reduction since starting these medications. Is now getting 1-2 headaches a month lasting up to 2 days at a time. Does note that the Relpax does help with abortive relief as well. However, in early June she began experiencing multiple different symptoms. Notes that she started experiencing pain specifically from the shoulders up, around the scalp. Notes that she felt as if her skin was crawling, paresthesias throughout the scalp and shoulders. States that she was feeling her scalp and noticed new indentations on her scalp itself. [place] these were very tender but also notes all over scalp tenderness. Also reporting some paresthesias in her hands when she wakes up and occasionally in her feet. Describing some pain throughout as well in similar locations. No falls. No other etiology for onset of symptoms. Has never had any symptoms like this before. Notes that with any manipulation of her hair or scalp she elicits the symptoms. 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 Patient also reporting significant fatigue. Notes that she has had to reduce her hours of work due to the fatigue and discomfort noted above. Also notes that last week she was very fatigued, went home early from work and slept for 2 days straight which is very atypical for her. Also notes increased photophobia at baseline. Prior therapies: Prozac TPM Relpax Aldactone Imitrex NSAIDs MG Labs/Imaging B12 is normal Medications: Current Outpatient Medications Medication Sig Dispense Refill SEMAGLUTIDE, WEIGHT LOSS, SUBCUTANEOUS Inject 70 Units subcutaneously one time a week. 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 Also takes additional 30 mg equaling (60 mg) Fri topiramate (TOPAMAX) 50 mg tablet Take 1 tablet by mouth daily at bedtime. 30 tablet 3 eletriptan (RELPAX) 20 mg tablet Take 1 tablet (20 mg) by mouth as needed for migraine headache (see administration instructions) (2 max in 24 hours). at the onset of migraine headache. 12 tablet 1 spironolactone (ALDACTONE) 50 mg tablet Drospirenone-Ethinyl Estradiol (SUNDAR, 28,) 3-0.02 mg per tablet every 24 hours. FLUoxetine HCl 20 mg tablet Take 20 mg by mouth once daily. VITAMIN B COMPLEX-100 ORAL Take 1 tablet by mouth once daily. cholecalciferol (VITAMIN D) 1,000 unit tab Take 1,000 Units by mouth once daily. No current facility-administered medications for this visit. ROS ROS: Her ROS was positive for that mentioned in the HPI. Otherwise a 10-point ROS was completed and was negative. ALLERGIES Allergen Reactions Penicillins Anaphylaxis Past Medical History: PAST MEDICAL HISTORY Diagnosis Date Dysmenorrhea Dyspareunia Hypothyroidism also known nodule Papanicolaou smear of cervix with low grade squamous intraepithelial lesion (LGSIL) 02/24/2006 PMH - PAST MEDICAL HISTORY OF bipolar, borderline personality disorder Family History: FAMILY HISTORY Problem Relation Age of Onset Cancer Maternal Grandfather unknown Heart Paternal Grandfather Stroke Paternal Grandfather Hypertension Maternal Grandmother Also includes: . Social History: Social History Tobacco Use Smoking status: Never Smokeless tobacco: Former Types: Chew Tobacco comments: For 3 years Substance Use Topics Alcohol use: Yes Comment: occasionally Drug use: No Hairdresser Objective 08/01/23 1445 BP: 115/81 BP Site: Right Arm BP Position: Sitting BP Cuff Size: Regular Adult Pulse: 85 Resp: 16 SpO2: 100% Weight: 71.1 kg (156 lb 12 oz) Physical Examination General Appearance: Well appearing, alert, in no acute distress, well-hydrated, well nourished. Head: Normocephalic Pulm: Breathing comfortably Neck: Supple Psych: Cooperative, appropriate affect Neurological Examination: Mental Status: Alert and Oriented to Place, Person, Time and Situation and Patient follows commands.. Language: Is intact to Comprehension, Fluency and Repetition Cranial Nerves: CNII: Visual acuity normal, visual sung full to confrontation CNIII, IV, : Pupils equal, round and reactive to light, full extraoccular movements, without nystagmus CN V: Facial sensation intact bilaterally to fine touch and temperature CN VII: Facial muscles symmetric and strong CN VIII: Hears finger rub well bilaterally CN IX: Gag Reflex not examined CN X: Palate elevates symmetrically CN XI: Full strength shoulder shrug bilaterally CN XII: Tongue protrusion full and midline Motor Exam: Tone - Normal Tone noted in all extremities Bulk - Normal bulk noted in all muscles tested. Inspection - Normal, no fasciculations or tremors noted. Power: MUSCLES Upper Extremity RIGHT LEFT Deltoid 5/5 5/5 Biceps 5/5 5/5 Triceps 5/5 5/5 Wrist Extension 5/5 5/5 Wrist Flexion 5/5 5/5 Finger Flexion 5/5 5/5 Finger Extension 5/5 5/5 Finger Abd 5/5 5/5 Finger Add / 5/5 MUSCLES Lower Extremity RIGHT LEFT Hip Flexion 5/ 5/5 Hip Extension 5/5 5/5 BiFem (Knee Flex) / 5/5 Quads (Knee Ext) 06/28 5/5 Gastroc (Plantflx) 06/28 5/5 TibAnt (Dorsiflx) 06/28 5/5 FlxHLong (Toe Flex) 06/28 5/5 ExtHLong (Toe Ext) 06/28 5/5 Sensory Examination Sensation is intact to vibration and temperature throughout. Negative extinction to double simultaneous stimulation Reflexes Right Left Bicep 2/4 2/4 Tricep 2/4 2/4 BrRad 2/4 2/4 Knee 2/4 2/4 Ankle 2/4 2/4 Morales Response Negative Negative Coordination: finger-to- nose-finger intact bilaterally and [id number] intact bilaterally. Gait: Patient's gait is normal, can heel and toe walk and can tandem walk Romberg: Negative DATA REVIEWED Actual films/image/tracing reviewed and summarized as follows: none Old records reviewed and summarized as follows: Neurology, primary care Assessment/Plan Assessment & Plan: Yolande Gomes is a 42 year old female with a history of hypothyroidism, migraine. Her examination demonstrates no neurologic deficits. Patient presents for evaluation of migraines as well as multiple different neurologic symptoms starting in June. Notes that she followed with Dr. Don at the end of April and was put on Topamax 50 mg, magnesium 500 mg for preventative relief of migraine and Relpax for abortive relief. In June of this year she began experiencing pain, paresthesias, crawling sensation from her scalp and into her shoulders, intermittent and at different locations. Also experiencing numbness in her hands, pain in her feet, hips. Also reporting significant fatigue, confusion and brain fog. Also reporting some changes in her taste as well. No other etiology for onset that she can think of. Patient's neurologic exam is very reassuring. Does note that her current regimen has decreased her headaches, but discussed that many of the symptoms she is experiencing are likely secondary from the Topamax. Discussed stopping this medication and patient agrees. Patient without any history of seizures or epilepsy. Encouraged her to continue with magnesium, also educated her on additional supplements that may beneficial as preventative treatment as well. Will continue with Relpax as an abortive therapy. Patient already has appointment with Dr. Don scheduled for next week encouraged her to follow-up. Will reach out to Dr. Don to see if any additional testing or workup is needed. Patient agreeable to treatment plan of care at this time, questions were answered. Patient follow-up as needed. Yolande was seen today for established patient. Diagnoses and all orders for this visit: 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 and without status migrainosus Paresthesia of skin She should return to see me prn. I spent a total of 40 minutes on the date of the service which included preparing to see the patient, [id number] patient care, completing clinical documentation, obtaining and/or reviewing separately obtained history, performing a medically appropriate examination, and counseling and educating the patient/family/caregiver. Makayla Jacobs PA-C [facility] Neurology This document has been created with the use of voice recognition technology. It may contain inaccuracies: (e.g. misspellings, inaccurate syntax or word sense) that have escaped review. documented in this encounter [facility] 07-24-2023 History of Present illness Narrative Radiology Service Progress Note PATIENT NAME: Yolande Gomes DATE OF SERVICE: July 24, 2023 TIME: 11:34 AM PATIENT IDENTITY VERIFICATION COMPLETED USING TWO (2) IDENTIFIERS: Name and Date of confirmed by patient verbally. FALL SCREENING: Has the patient had 2 falls in the last year or 1 fall with injury or currently using an Ambulatory Assistive Device (Walker, Cane, Wheelchair, Crutches, etc.)? No PATIENT GENDER DATA: Female. status: : No status: NO. PATIENT RELEVANT IMPLANT DATA REVIEWED: Not Applicable PATIENT PRESENTS WITH AN IMPLANTABLE OR ATTACHED PBX SUPERVISOR: No RADIOLOGY DEPARTMENT: General X-ray: Exam(s) Completed: Spine X-Ray(s): Cervical AP / LAT flex and ext. PERIPHERAL IV DATA: Not applicable SIGNED BY: RT Fidelia(R) July 24, 2023 11:34 AM documented in this encounter [facility] 07-22-2023 Instructions Isabela Olivera APRN.CNP - 07/22/2023 5:16 PM EDT Meniere's disease- can cause triad of headaches, vertigo, ear issues. documented in this encounter [facility] 07-22-2023 Note HNO ID: [id number] Author: ISABELA OLIVERA APRN.RODO Service: ? Author Type: Nurse Practitioner Type: Progress Notes Filed: 07/23/2023 12:50 Note Text: [address] [address] Date of Evaluation: 07/22/2023 Patient Name: Yolande Gomes : 1980 Chief Complaint: Patient presents with: Hair/Scalp Problem: 2 indentations on skull, sensitive to touch Fatigue: Onset 9 months Nursing Intake: There are no exam notes on file for this visit. Subjective Ms. Gomes is a 42 year old female who presents with the following complaint(s): The history is provided by the patient. 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 Yolande is here today to transfer care and with a few complaints. 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 Hx migraines, increasing in frequency since 02/2023: Following with neurology Dr. Don for migraines. New scalp indentations: Noticed the first one about 1 month ago, second indentation noticed about one week ago. No associated hair loss or itching but c/o scalp sensitivity/pain with this. Reports pain from posterior neck and head up through scalp to top of head, very sensitive, painful to touch, sometimes has tingling without touching it. No facial tingling or pain. C/o significant fatigue with this, worsening over the last year. Feels that she cannot get herself up and moving sometimes, despite sleeping well (6-8 hours/night uninterrupted). Has been getting very cold and having chills, to the point that she's shivering in the last month. Normal for her is to be more heat intolerant. This change started a few months ago. Wakes up with hand numbness and tingling intermittently- bilateral hands. Sometimes gets upper rib pain while working- sharp pains through ribs. Hx bouts of vertigo- vision changes/blurred vision in 04/19. Normal eye exam after this. Has been told that she has fluid on ears since 08/2022 and never had ear problems previously. Hx hypothyroidism: Last thyroid ultrasound through another system to monitor a thyroid nodule- about 1-2 years ago. Has been on Fluoxetine since 2018, Spironolactone x 8 years for skin (started by derm). Review of Systems Constitutional: Positive for chills and fatigue. Negative for activity change, appetite change, diaphoresis, fever and unexpected weight change. Eyes: Positive for visual disturbance. Respiratory: Negative for cough, chest tightness and shortness of breath. Cardiovascular: Negative for chest pain, palpitations and leg swelling. Gastrointestinal: Negative for abdominal pain, diarrhea, nausea and vomiting. Endocrine: Positive for cold intolerance. Negative for heat intolerance, polydipsia, polyphagia and polyuria. Musculoskeletal: Positive for arthralgias, myalgias and neck pain. Skin: Negative for rash and wound. Neurological: Positive for dizziness (intermittent- usually positional), numbness (intermittent, hands) and headaches. Negative for facial asymmetry, weakness and light-headedness. Scalp pain Hematological: Negative for adenopathy. Does not bruise/bleed easily. PAST MEDICAL HISTORY Diagnosis Date Dysmenorrhea Dyspareunia Hypothyroidism also known nodule Papanicolaou smear of cervix with low grade squamous intraepithelial lesion (LGSIL) 02/24/2006 PMH - PAST MEDICAL HISTORY OF bipolar, borderline personality disorder PAST SURGICAL HISTORY Procedure Laterality Date PAST SURGICAL HISTORY OF tonsils FAMILY HISTORY Problem Relation Age of Onset Cancer Maternal Grandfather unknown Heart Paternal Grandfather Stroke Paternal Grandfather Hypertension Maternal Grandmother Social History Tobacco Use Smoking status: Never Smokeless tobacco: Former Types: Chew Tobacco comments: For 3 years Substance Use Topics Alcohol use: Yes Comment: occasionally Drug use: No Current Outpatient Medications 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 Also takes additional 30 mg equaling (60 mg) Fri topiramate (TOPAMAX) 50 mg tablet Take 1 tablet by mouth daily at bedtime. eletriptan (RELPAX) 20 mg tablet Take 1 tablet (20 mg) by mouth as needed for migraine headache (see administration instructions) (2 max in 24 hours). at the onset of migraine headache. spironolactone (ALDACTONE) 50 mg tablet Drospirenone-Ethinyl Estradiol (SUNDAR, 28,) 3-0.02 mg per tablet every 24 hours. FLUoxetine HCl 20 mg tablet Take 20 mg by mouth once daily. VITAMIN B COMPLEX-100 ORAL Take 1 tablet by mouth once daily. cholecalciferol (VITAMIN D) 1,000 unit tab Take 1,000 Units by mouth once daily. No current facility-administered medications for this visit. I have confirmed and edited as necessary the chief complaint, medications, past medical, family and social histories obtained by others. Objective BP 114/81 Pu (more content not included)... [facility] 07-22-2023 History of Present illness Narrative Images from the original note were not included. [facility] [place] [address] [place] [address] Date of Evaluation: 07/22/2023 Patient Name: Yolande Gomes : 1980 Chief Complaint: Patient presents with: Hair/Scalp Problem: 2 indentations on skull, sensitive to touch Fatigue: Onset 9 months Nursing Intake: There are no exam notes on file for this visit. Subjective Ms. Gomes is a 42 year old female who presents with the following complaint(s): The history is provided by the patient. 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 Yolande is here today to transfer care and with a few complaints. 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 Hx migraines, increasing in frequency since 02/2023: Following with neurology Dr. Don for migraines. New scalp indentations: Noticed the first one about 1 month ago, second indentation noticed about one week ago. No associated hair loss or itching but c/o scalp sensitivity/pain with this. Reports pain from posterior neck and head up through scalp to top of head, very sensitive, painful to touch, sometimes has tingling without touching it. No facial tingling or pain. C/o significant fatigue with this, worsening over the last year. Feels that she cannot get herself up and moving sometimes, despite sleeping well (6-8 hours/night uninterrupted). Has been getting very cold and having chills, to the point that she's shivering in the last month. Normal for her is to be more heat intolerant. This change started a few months ago. Wakes up with hand numbness and tingling intermittently- bilateral hands. Sometimes gets upper rib pain while working- sharp pains through ribs. Hx bouts of vertigo- vision changes/blurred vision in 04/19. Normal eye exam after this. Has been told that she has fluid on ears since 08/2022 and never had ear problems previously. Hx hypothyroidism: Last thyroid ultrasound through another system to monitor a thyroid nodule- about 1-2 years ago. Has been on Fluoxetine since 2018, Spironolactone x 8 years for skin (started by derm). Review of Systems Constitutional: Positive for chills and fatigue. Negative for activity change, appetite change, diaphoresis, fever and unexpected weight change. Eyes: Positive for visual disturbance. Respiratory: Negative for cough, chest tightness and shortness of breath. Cardiovascular: Negative for chest pain, palpitations and leg swelling. Gastrointestinal: Negative for abdominal pain, diarrhea, nausea and vomiting. Endocrine: Positive for cold intolerance. Negative for heat intolerance, polydipsia, polyphagia and polyuria. Musculoskeletal: Positive for arthralgias, myalgias and neck pain. Skin: Negative for rash and wound. Neurological: Positive for dizziness (intermittent- usually positional), numbness (intermittent, hands) and headaches. Negative for facial asymmetry, weakness and light-headedness. Scalp pain Hematological: Negative for adenopathy. Does not bruise/bleed easily. PAST MEDICAL HISTORY Diagnosis Date Dysmenorrhea Dyspareunia Hypothyroidism also known nodule Papanicolaou smear of cervix with low grade squamous intraepithelial lesion (LGSIL) 02/24/2006 PMH - PAST MEDICAL HISTORY OF bipolar, borderline personality disorder PAST SURGICAL HISTORY Procedure Laterality Date PAST SURGICAL HISTORY OF tonsils FAMILY HISTORY Problem Relation Age of Onset Cancer Maternal Grandfather unknown Heart Paternal Grandfather Stroke Paternal Grandfather Hypertension Maternal Grandmother Social History Tobacco Use Smoking status: Never Smokeless tobacco: Former Types: Chew Tobacco comments: For 3 years Substance Use Topics Alcohol use: Yes Comment: occasionally Drug use: No Current Outpatient Medications 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 Also takes additional 30 mg equaling (60 mg) Fri topiramate (TOPAMAX) 50 mg tablet Take 1 tablet by mouth daily at bedtime. eletriptan (RELPAX) 20 mg tablet Take 1 tablet (20 mg) by mouth as needed for migraine headache (see administration instructions) (2 max in 24 hours). at the onset of migraine headache. spironolactone (ALDACTONE) 50 mg tablet Drospirenone-Ethinyl Estradiol (SUNDAR, 28,) 3-0.02 mg per tablet every 24 hours. FLUoxetine HCl 20 mg tablet Take 20 mg by mouth once daily. VITAMIN B COMPLEX-100 ORAL Take 1 tablet by mouth once daily. cholecalciferol (VITAMIN D) 1,000 unit tab Take 1,000 Units by mouth once daily. No current facility-administered medications for this visit. I have confirmed and edited as necessary the chief complaint, medications, past medical, family and social histories obtained by others. Objective BP 114/81 Pulse 91 Resp 16 Ht 5' 3 (1.60m) Wt 157 lb (71.2kg) SpO2 100% LMP 02/17/2007 BMI 27.82 kg/(m^2). Physical Exam Constitutional: General: She is awake. She is not in acute distress. Appearance: Normal appearance. HENT: Head: Atraumatic. Comments: Not visible, but palpable, small depressions of scalp at top of head- no signs of trauma and no swelling. No hair loss at these areas or elsewhere. No scalp rashes. Right Ear: Tympanic membrane and ear canal normal. Left Ear: Tympanic membrane and ear canal normal. Eyes: General: Lids are normal. Extraocular Movements: Extraocular movements intact. Pupils: Pupils are equal, round, and reactive to light. Neck: Vascular: No JVD. Cardiovascular: Rate and Rhythm: Normal rate and regular rhythm. Heart sounds: Normal heart sounds, S1 normal and S2 normal. Pulmonary: Effort: Pulmonary effort is normal. Breath sounds: Normal breath sounds and air entry. Musculoskeletal: Cervical back: Muscular tenderness present. No spinous process tenderness. Normal range of motion. Right lower leg: No edema. Left lower leg: No edema. Neurological: General: No focal deficit present. Mental Status: She is alert and oriented to person, place, and time. Psychiatric: Speech: Speech normal. Behavior: Behavior normal. Behavior is cooperative. Data Reviewed: Most recent labs Most recent imaging ASSESSMENT/PLAN: 1. Encounter to establish care - ICD9: V65.8, ICD10: Z76.89 (primary diagnosis) 2. Paresthesia - ICD9: 782.0, ICD10: R20.2 - COMPLETE BLOOD COUNT AND DIFFERENTIAL - VITAMIN B12 - ALETHA BY IFA SCREEN 3. Scalp pain - ICD9: 784.0, ICD10: R51.9 - check labs- if normal- derm referral 4. Myalgias - ICD9: 729.1, ICD10: M79.10 - COMPLETE BLOOD COUNT AND DIFFERENTIAL - ALETHA BY IFA SCREEN - C-REACTIVE PROTEIN - COMPREHENSIVE METABOLIC PANEL 5. Cervicalgia - ICD9: 723.1, ICD10: M54.2 - XR CERVICAL 2V FLEX/EXT 6. Polycystic ovarian disease - ICD9: 256.4, ICD10: E28.2 - on OCP 7. Hypothyroidism, acquired - ICD9: 244.9, ICD10: E03.9 - Instructed patient on importance of taking on an empty stomach either first thing in the morning or at bedtime. - COMPREHENSIVE METABOLIC PANEL - VITAMIN D 25 HYDROXY 8. Chronic fatigue - ICD9: 780.79, ICD10: R53.82 - VITAMIN D 25 HYDROXY 9. Thyroid nodule - ICD9: 241.0, ICD10: E04.1 I spent a total of 45 minutes on the date of the service which included preparing to see the patient, [id number] patient care, completing clinical documentation, obtaining and/or reviewing separately obtained history, performing a medically appropriate examination, counseling and educating the patient/family/caregiver, and ordering medications, tests, or procedures. Isabela Olivera APRN.RODO No follow-ups on file. Discussed the above with the patient using shared decision making. The patient is in agreement with the diagnostic and treatment plans. documented in this encounter [facility] 06-04-2023 Miscellaneous Notes Pharmacy verified in [employer]. Patient has been identified by name and date of : Yes Patient aware RX will be sent to pharmacy. No need to notify patient. Pharmacy phones for refill(s): Requested Prescriptions Pending Prescriptions Disp Refills topiramate (TOPAMAX) 50 mg tablet 30 tablet 3 Sig: Take 1 tablet by mouth daily at bedtime. Date of last office visit : Visit date not found Date of next office visit : Visit date not found Last 2 Encounter Wt Readings: Date: Wt: 05/15/2023 77 kg (169 lb 12.1 oz) 03/15/2019 69.9 kg (154 lb) Please advise. Marina Irvin MA documented in this encounter [facility] 05-26-2023 Miscellaneous Notes Pharmacy verified in [employer]. Patient has been identified by name and date of : Yes Patient aware RX will be sent to pharmacy. No need to notify patient. Pharmacy phones for refill(s): Requested Prescriptions Pending Prescriptions Disp Refills eletriptan (RELPAX) 20 mg tablet 12 tablet 1 Sig: Take 1 tablet (20 mg) by mouth as needed for migraine headache (see administration instructions) (2 max in 24 hours). at the onset of migraine headache. Date of last office visit : 05/15/2023 Date of next office visit : 07/18/2023 Last 2 Encounter Wt Readings: Date: Wt: 05/15/2023 77 kg (169 lb 12.1 oz) 03/15/2019 69.9 kg (154 lb) Please advise. Marina Irvin MA [facility] System 05-15-2023 Instructions Crissy Don MD - 05/15/2023 3:43 PM EDT Acute Headache Treatment: (What to take as-needed for headache) 1) Relpax at earliest sign of migraine. May repeat once in 2 hours. Do not use more than 10 days per month. Headache Preventive Treatment (What to take on a daily basis to try to lessen frequency and/or intensity of headache): *Please keep in mind that it takes 4-6 weeks for the medication to start working well and 2-3 months at the appropriate dose before deciding if it will be useful or not. If it is not helping at all by this time, then we will discuss other medications to try. Supplements may take 3-6 months until you see full effect. Consider adding supplements: Magnesium 400-800 mg daily. Magnesium glycinate is a good choice for those with a sensitive stomach who have gastrointestinal side effects such as diarrhea with other forms of magnesium. It is anecdotally also helpful with anxiety and sleep. Magnesium threonate also has low risk of gastrointestinal side effects and anecdotally helpful with cognitive function and brain fog symptoms. Magnesium malate has low gastrointestinal side effects and is reportedly more energizing and anecdotally often helpful in fibromyalgia and chronic fatigue syndrome. Magnesium citrate is one of the most studied, popular, and well-absorbed forms of magnesium. It can also be mixed easily with liquids if you can t take pills. However, it comes with a higher risk of diarrhea and gastrointestinal side effects, although this could be helpful for those with constipation. Magnesium oxide is also well studied, cheap, and often used for heartburn and indigestion. However, it is not well absorbed and can have some laxative side effects as well, so can also be helpful for constipation. Other supplements to consider would be Coenzyme Q10 200 mg (or 150 mg) twice daily (or Qunol brand 100 mg daily) +/- Riboflavin (Vitamin B2) 400 mg daily (or 200 mg twice daily). You can sometimes buy supplements cheaper (especially Coenzyme Q10) at www.IMNEXT or at YouEarnedIt. General Headache Instructions: 1) Maintain a headache diary; learn to identify and avoid triggers. 2) Limit use of acute treatments (dyri-rdb-jccfzci medications, triptans, etc.) to no more than 2 days per week or 10 days per month to prevent medication overuse headache (rebound headache). 3) Follow a regular schedule (including weekends and holidays) for the next 6 weeks: A) Don't skip meals. B) 8 hours of sleep nightly. C) Avoid the following common headache triggers: -Caffeine (coffee, chocolate, tea, cola/pop/soda (7-up, Sprite, Bebe Mist, Taryn Ankita, Mug/A+W Root Beer, Minute Maid [place], Slice are okay)) -Foods containing nitrates (deli meat, ham, richards, sausage, hot dogs) -Tyramine (aged cheese; can only have Swiss cheese, cottage cheese, Velveeta and fresh mozarella (most pizza uses aged mozarella)) -MSG (Sami/ foods, Doritos, all flavored chips and Ramen noodles) -Nutrasweet and artificial sweeteners D) Minimize stress. E) Exercise 30 minutes per day. Being overweight is associated with a 5 times increased risk of chronic migraine. F) Keep well hydrated and drink 6-8 glasses of water per day. 4) Initiate non-pharmacologic measures at the earliest onset of your headache. A) Rest and quiet in a cool, dark environment. B) Relax and reduce stress. C) Cold compress to head (place a dry washcloth to forehead, cover with a blue freezer packet and use a headband to press the freezer packet across the forehead and temples). 5) Don't wait!! Take the maximum allowable dosage of prescribed medication at the very earliest sign of headache. 6) Compliance: Take prescribed medication regularly as directed and at the first sign of a headache. 7) Communicate: Call your physician when problems arise, especially if your headaches change, increase in frequency/severity, or become associated with neurological symptoms (weakness, numbness, slurred speech, etc.). 8) Headache/pain management therapies: Consider various complementary methods, including medication, behavioral therapy, psychological counselling, biofeedback, massage therapy, acupuncture, and other modalities. Such measures may reduce the need for medications. Counseling for pain management, where patients learn to function and ignore/minimize their pain, seems to work very well. 9) Recommend changing family's attention and focus away from patient's headaches. Instead, emphasize daily activities. If first question of day is 'How are your headaches/Do you have a headache today?', then patient will constantly think about headaches, thus making them worse. Goal is to re-direct attention away from headaches, toward daily activities and other distractions. Avoiding Medication Overuse Headache (Rebound Headache): Based on current research, the types of medications and their frequency of use which converts a previously episodic headache (particularly migraine) into a chronic daily headache (any headache occurring 15 or more days per month for at least 4 hours per day) are as follows: ---> Over the counter medications, NSAIDS and combination analgesics: -More than 2 days per week, or more than 10 days per month. -These include medications such as Acetaminophen (Tylenol), Naproxen (Aleve), Ibuprofen (Advil, Motrin), Acetaminophen/Caffeine (Excedrin), Acetaminophen/Dichloralphenazone/I sometheptene (Midrin), Aspirin (ok to continue if taking for medical reasons), cold remedies and sleep-promoting agents, among others. ---> Triptans: -More than 2 days per week, or more than 10 days per month. -These include Sumatriptan (Imitrex), Sumatriptan/Naproxen (Treximet), Rizatriptan (Maxalt), Almotriptan (Axert), Zolmitriptan (Zomig), Eletriptan (Relpax), Naratriptan (Amerge), Frovatriptan (Frova). ---> Opiates/Opioids (Narcotics): -8 days or more per month. Some research suggests that even infrequent use of these medications makes migraine specific medications such as triptans and NSAIDs less effective. -These include any narcotics such as Acetaminophen/Hydrocodone (Vicodin), Acetaminophen/Oxycodone (Percocet), Acetaminophen/Propoxyhene (Darvocet), Acetaminophen/Codeine (Tylenol #3, #4), Tramadol (Ultram), Acetaminophen/Tramadol (Ultracet), Oxycodone (OxyContin), Hydromorphone (Dilaudid), Fentanyl, Butorphanol (Stadol), Morphine or any form of a Morphine derivative. ---> Butalbital containing medications: -5 or more days per month. As you can see, these are the worst offenders. -These include Acetaminophen/Butalbital/Caffeine (Fioricet, Esgic) Acetaminophen/Butalbital/Caffeine/ Codeine (Fioricet with Codeine), Aspirin/Butalbital/Caffeine (Fiorinal), Aspirin/Butalbital/Caffeine/Codein e (Fiorinal with Codeine). Vitamins and herbs that show potential for migraine prevention: Magnesium: Magnesium (250 mg twice a day or 500 mg at bed) has a relaxant effect on smooth muscles such as blood vessels. We often give intravenous magnesium to patients who come into the emergency department for migraine because it helps to break the migraine. Three trials found 40-90% average headache reduction when used as a preventative. Magnesium also demonstrated the benefit in menstrually related migraine. Magnesium is part of the messenger system in the serotonin cascade and it is a good muscle relaxant. It is also useful for constipation which can be a side effect of other medications used to treat migraine. Good sources include nuts, whole grains, and tomatoes. Coenzyme Q10: This is present in almost all cells in the body and is critical component for the conversion of energy. Recent studies have shown that a nutritional supplement of CoQ10 can reduce the frequency of migraine attacks by improving the energy production of cells as with riboflavin. Doses of 200 mg (or 150 mg) twice a day have been shown to be effective. Riboflavin (Vitamin B2): 200 mg twice a day (or 400 mg daily). This vitamin assists nerve cells in the production of ATP, a principal energy storing molecule. It is necessary for many chemical reactions in the body. There have been at least 3 clinical trials of riboflavin using 400 mg per day all of which suggested that migraine frequency can be decreased. All 3 trials showed significant improvement in over half of migraine sufferers. The supplement is found in bread, cereal, milk, meat, and poultry. Most Americans get more riboflavin than the recommended daily allowance, however riboflavin deficiency is not necessary for the supplements to help prevent headache. Feverfew: Feverfew is a common garden herb [place] and popular in [place] as a treatment for disorders typically controlled by aspirin. The mechanism of action is unknown but is believed to be related to a chemical called parthenolide which helps the body use serotonin more effectively. Serotonin helps prevent migraine and assists with resolution when it occurs. Parthenolide also inhibits the release of histamine which is linked to pain and inflammation. Consistency of active ingredients in different products can be a problem. Some formulations don't have the active ingredient (parthenolide) that prevents migraine. A parthenolide content of 0.2% is generally recommended. Typical dosage is one capsule 3 times a day. Butterbur: This is an extract derived from the petisides hybridus root, which has been used for medicinal purposes since ancient times. A recent study found that 75 mg daily given over 4 months reduced headache frequency by 50% or more in over two thirds of the 245 patient studied. The 50 mg dose showed no significant effect. Side effects were infrequent, and the most common and unusual includes burping/belching. Raw butterbur root contains toxic chemicals that must be filtered out during the manufacturing process. To be sure you are choosing a safe product. Look for a formulation that does not contain pyrrolizidine alkaloids which are toxic to the liver. Melatonin: Increasing evidence shows correlation between melatonin secretion and headache conditions. Melatonin supplementation has shown decreased headache intensity and duration. It is widely used as a sleep aid. Sleep is nature's way of dealing with migraine. A dose of 3 mg is recommended to start for headaches including cluster headache. Higher doses up to 15 mg has been reviewed for use in Cluster headache and have been used. The rationale behind using melatonin for cluster is that many theories regarding the cause of Cluster headache center around the disruption of the normal circadian rhythm in the brain. This helps restore the normal circadian rhythm. It should be taken at least 2 hours before bedtime. Taryn: Taryn has a small amount of anti-histamine and anti-inflammatory action which may help headache. It is primarily used for nausea and may aid in the absorption of other medications. HEADACHE EXPECTATIONS: There are many types of headaches, and only a rare few in which complete relief can be expected. In general, there is no cure for headache, especially migraine based headaches. There is nothing available that completely prevents headaches from occurring, breaking through, or having periodic flare-ups and fluctuations. Regardless of what you are using on a daily basis for prevention, episodic headaches should still be expected, and periods where frequency may escalate and fluctuate are unavoidable. There is no quick fix for most headaches. Furthermore, the longer you have had high frequency headaches (such as chronic daily headache), the longer it will likely take to expect any improvement. In fact, some people will never improve, regardless of how many medications or other treatments we try. Our treatment strategy is to evaluate for possible causes of your headache, although testing is usually always normal, even in cases of daily continuous headaches for years. Most types of headache such as migraine are electrical brain disorders (similar to how epilepsy is an electrical brain disorders). Therefore, there is no testing that will reveal this dysfunctional electrical circuitry such on MRI, or other testing. We try to find a medication that may help lessen the frequency and/or severity of your headaches. The goal is not to completely stop them from happening, although if that happens, great! Different people respond to different medications, and some people just don't respond to anything, so it's usually a matter of trying different options. We can not predict if or when exactly you will respond to a treatment that we provide. Preventive headache medications take 4-6 weeks to start working, and 2-3 months to see full effect, assuming you reach an effective dose. Therefore, calling or messaging frequently because you have a headache flare prior to the 3 month nahum is unlikely to change anything, and unfortunately there is nothing available that will expedite this, so please try to avoid this. Our recommendation will generally be to give it adequate time first. If you are unable to wait it out for medications to work, we can also try IV infusions for some temporary relief. Or, we offer our 3 week outpatient chronic daily headache program (IMATCH) to help you better learn how to function and deal with chronic headache issues. In general, the best that preventive medications or other treatments (including Botox) are able to offer in migraine management (variable in other headache types) is a 50% improvement in frequency and/or severity of headache. That is our goal, and any additional benefit is considered a bonus. Some people do significantly better than this, others do not get close to this. Therefore, if your headaches are not improving by at least 3 months on your preventive strategy, contact us and we can discuss further adjustments. Keep in mind that complete headache cure is not a realistic expectation. MYCHART, PHONE CALLS, TESTING RESULTS: Please understand that we rely heavily and work closely with our nursing team to assist us in managing your telephone calls, test results, and refills. Due to the volume of daily phone calls, messages, and schedules, it is impossible for us to personally call patients back through the day. We do receive your messages, which are very important to us, and respond most often through our nursing team to help relay our message and response back to you. The main way of communication is by Modbookhart rather than phone lines, so if you have not signed up, please do so. MyChart is also the way that you can review your labs and testing. We are not able to contact everyone to tell them results are normal. If you do not hear back from us regarding testing you have had, it should be considered normal or within normal range. If you have any questions about the results, you are free to message us. MyChart is meant for simple questions regarding medications, possible side effects, or other simple straight forward questions in limited sentences, rather than multiple paragraphs of discussion. MyChart is not meant for, safe, or efficient for these complex questions, extensive questions, extensive medication adjustments, complex new symptoms or concerns. These issues beyond simple questions require a follow up visit with myself, one of our physician assistants, nurse practitioners, or a Virtual Visit via computer or smart phone, as detailed further down. REFILLS: Please pay attention to when your refills will need to be renewed. Due to the volume of phone calls daily, this could potentially take a few days, although we certainly try to honor your refill requests as soon as we can. You should call at least 1 week in advance of needing a refill to ensure you do not run out of medication. Keep in mind that refill requests on Fridays may not be filled until the following week. BOTOX: If you are receiving Botox treatments, please check with your insurance company before and following each treatment appointment to ensure that you still have pre-approved coverage for your next Botox appointment in 3 months. If your coverage has run out, and a new prior authorization is required to continue Botox treatment, please call our office and let us know so that we can file the paperwork. Telemedicine is the newest virtual visit that we are now offering to allow you to have a ladu-xw-vbid conversation with your doctor for 15 minutes (although this can extend further as needed), without the need for driving to our clinic, paying for parking, paying copays, paying for travel, stopping over for meals, etc. You will need a computer or smartphone (with a built-in camera), should you wish to avail of this convenient alternative. If you are interested in the telemedicine visit, please let me know and we will facilitate that visit. I have included more detailed information below on how the virtual visit works. We look forward to serving your needs and answering your questions! REASON FOR A VIRTUAL ONLINE APPOINTMENT In order to provide you with the best care possible, we have recently begun using a technology to connect patients, providers, and family members through a Skype -like connection for live audio and video communication. We are now using this as a way for patients to have a visit with a provider without the added costs of having to travel to our facility. This service, [facility], is easily accessible through your mobile device or a desktop/laptop with a browser and internet connection. HOW DO I GET STARTED? ON A DESKTOP OR LAPTOP COMPUTER WITH A WEBCAM CONNECTED: 1. Go to the URL: [email or web address] 2. Click on Sign Up and Create a patient account for yourself. 3. Please also follow the links to Test My Computer . 4. Follow the steps suggested, testing your Internet Speed, Webcam, Microphone, Speaker, and your video software. 5. Please make sure your video software is up-to-date. This is a safe, [facility] approved download, and will not harm your computer. ON AN IPHONE, IPAD, OR ANDROID DEVICE: 1. Open up the Zunilda Store or Google Audioscribetore and search [facility]. 2. Download and Install the Application. 3. Tap on Sign Up and create a patient account for yourself. 4. Please use an e-mail address that you frequently check, as you will receive an e-mail appointment from [facility] [employer] [facility]. documented in this encounter [facility] 05-15-2023 History of Present illness Narrative Images from the original note were not included. Neurological [place] May 15, 2023 Consultation My final recommendations will be communicated back to the requesting physician by way of shared medical record or letter via US mail. Referring physician: No referring provider defined for this encounter. Patient presents with: Consult: migraines Accompanied by Self. Referred by No referring provider defined for this encounter.. HISTORY AND PHYSICAL Ms. Gomes is a 42 year old female, being seen today for migraine headache. Debilitating migriane which interferes with her work. In February had one headache every week with photophobia phonophobia ,pain behind the right eye top of head and neck pain She also has chronic neck and back pain. Average 4 a month of headaches ,for days ,lies down in a dark quiet room and sometimes she is spacy and confused with the headache . Some of her episodes present with visual aura like flickering light before the headache. Maxalt didn't work ,Imitrex not working , in addition to side effects of excessive sleeping Since her twenties she has been getting the migraine but less severe and less frequent Than the migraines that she is getting in the last 3 years. No ,and not planning to be , aware of the teratogenic effect of medications, That will be used for headache prevention. Family history of migriane headache She has never tried preventative medication in the past. Past Medical History PAST MEDICAL HISTORY Diagnosis Date Dysmenorrhea Dyspareunia Papanicolaou smear of cervix with low grade squamous intraepithelial lesion (LGSIL) 2006 PMH - PAST MEDICAL HISTORY OF bipolar, borderline personality disorder Current Medications Current Outpatient Medications Medication Sig Dispense Refill spironolactone (ALDACTONE) 50 mg tablet Drospirenone-Ethinyl Estradiol (SUNDAR, 28,) 3-0.02 mg per tablet every 24 hours. FLUoxetine HCl 20 mg tablet Take 20 mg by mouth once daily. metFORMIN 500 mg 24 hr tablet Take 500 mg by mouth twice daily with meals. 60 tablet 3 VITAMIN B COMPLEX-100 ORAL Take 1 tablet by mouth once daily. cholecalciferol (VITAMIN D) 1,000 unit tab Take 1,000 Units by mouth once daily. topiramate (TOPAMAX) 50 mg tablet Take 1 tablet by mouth daily at bedtime. 30 tablet 3 eletriptan (RELPAX) 20 mg tablet Take 1 tablet (20 mg) by mouth as needed for migraine headache (see administration instructions) (2 max in 24 hours). at the onset of migraine headache. 12 tablet 1 medroxyPROGESTERone (PROVERA) 10 mg tablet Take 1 tablet by mouth once daily. (Patient not taking: Reported on 05/15/2023) 10 tablet 1 phenazopyridine (PYRIDIUM) 100 mg tablet Take 1 tablet by mouth three times daily as needed. (Patient not taking: Reported on 05/15/2023) 9 tablet 0 Doxycycline Monohydrate (ORACEA) 40 mg capsule Take 40 mg by mouth once daily. (Patient not taking: Reported on 05/15/2023) Sulfacetamide Sodium-Sulfur 10-4 % padm Apply 1 application to affected area twice daily. (Patient not taking: Reported on 05/15/2023) No current facility-administered medications for this visit. Review of Systems: As shown in history All other systems reviewed and are negative. Review of Systems Constitutional Positive for Weight Gain and Fatigue Eyes Positive for Change in vison not corrected by glasses Hent: Negative Cardiovascular: Negative Respiratory: Negative GI: Negative Positive for Urgency Endocrine: Negative Musculoskeletal Positive for Back Pain Integumentary Positive for Hair Changes Heme/Lymph: Negative Allergy/Immunologic: Negative Neurologic Positive for Headache and Numbness/Tingling Psychiatric Positive for Stress or Conflicts, Depression, Anxiety and Irritability Patient's Review of Systems has been reviewed with the patient and updated as appropriate. Objective Physical Exam BP 115/81 (BP Site: Left Arm, BP Position: Sitting, BP Cuff Size: Large Adult) Pulse 102 Resp 16 Wt 77 kg (169 lb 12.1 oz) LMP 02/17/2007 SpO2 98% BMI 30.07 kg/m Neurological Exam MENTAL STATUS: Alert, oriented to person, place and time and Follows commands CRANIAL NERVES: PERRLA, EOM's intact, Visual snug intact to confrontation, Extraocular movements intact, Facial sensation intact, Face symmetric, Hearing intact to finger rub bilaterally, No dysarthria, Palate elevates symmetrically, Tongue protrudes midline, and Shoulder shrug intact and symmetric MOTOR: No drift and Normal tone MOTOR STRENGTH: moves all extremities REFLEXES: UE and LE reflexes are equal and reactive SENSATION: Intact light touch COORDINATION: Finger-to- nose-finger intact bilaterally GAIT: steady able to tandem well ,walks on tip of toes and heel Data Diagnostic tests reviewed for today's visit: LABS: Lab Results Component Value Date PLT 301 10/22/2019 HB 15.1 10/22/2019 HCT 45.9 10/22/2019 ALB 4.7 10/22/2019 CA 9.4 10/22/2019 TBILI 1.0 10/22/2019 ALKPHOS 73 10/22/2019 AST 17 10/22/2019 GLUC 96 10/22/2019 BUN 14 10/22/2019 NA 138 10/22/2019 K 3.8 10/22/2019 CHLOR 100 10/22/2019 CO2 26 10/22/2019 ANION 12 10/22/2019 ALT 12 10/22/2019 No results found for: WSR, CRP, IGG No results found for: USCRP Lab Results Component Value Date CHOL 175 02/04/2014 Lab Results Component Value Date LDL 109 02/04/2014 Lab Results Component Value Date HDL 50 (L) 02/04/2014 Lab Results Component Value Date TG 80 02/04/2014 Lab Results Component Value Date HBA1C 5.0 01/18/2022 HBA1C 5.4 02/04/2014 Lab Results Component Value Date TSH 2.460 10/22/2019 TSH 1.600 02/04/2014 No results found for: B12 IMAGING: Last MRI Cervical Spine - Impression Only No resulted procedures found. MRI Report No resulted procedures found. No results found. Social Determinants of Health Tobacco Use: Medium Risk (05/15/2023) Patient History Smoking Tobacco Use: Never Smokeless Tobacco Use: Former Passive Exposure: Not on file Alcohol Use: Not on file Financial Resource Strain: Not on file Food Insecurity: Not on file Transportation Needs: Not on file Physical Activity: Not on file Stress: Not on file Social Connections: Not on file Intimate Partner Violence: Not on file Depression: Not on file Housing Stability: Not on file Utilities: Not on file Area Deprivation Index: High Risk (02/02/2020) Area Deprivation Index National Score (1-100), lower number is lower risk: Not on file State Score (1-10), lower number is lower risk: Not on file Data from: https://www.neighborhoodatlas.[email or web address] Last address used for calculation: Not on file Diagnosis: (G43.101) Migraine with aura and with status migrainosus, not intractable (primary encounter diagnosis) IMP/PLAN: Yolande Gomes is 42 year old female, here today for migraine headache, which has been frequent and severe At least since February of this year she is getting 4 headache episodes in months, each 1 can last couple of days During the headache. She is lying in bed not able to function or go to work. Patient previously failed Imitrex and Maxalt, she also used Tylenol nonsteroidal anti-inflammatory as well as Excedrin With partial relief. We discussed the acute and preventative medication We also discussed the addition of supplement like magnesium 500 mg daily For acute headache, we canceled the Imitrex and Maxalt and started the Relpax to be taken At the onset of headache. Preventative medication with Topamax 50 mg daily, dose can be increased gradually Until better headache control. I will see the patient in 2 months, meanwhile she can call with any questions or concerns Or if she has breakthrough headaches Consider doing a CAT scan of the brain if headache is intractable [facility] [place] Department of Neurology Total time in minutes spent with patient, reviewing records, labs, imaging, formulating plan, and documentin with more than 50% of the time spent in patient education/counselling/coordinating care with the patient and /or family. documented in this encounter [facility] Evaluation note Diagnosis Onset Date PCOS (polycystic ovarian syndrome) acute Encounter for routine gyneco logical examination noneactive [facility] Work Phone: evaluation note* Diagnosis Migraine with aura and with status migrainosus, not intractable- Primary Migraine with aura, with intractable migraine, so stated, with status migrainosus [facility] Diagnosis Encounter to establish care- Primary Other reasons for seeking consultation Paresthesia Disturbance of skin sensation Scalp pain Headache Myalgias Cervicalgia Polycystic ovarian disease Polycystic ovaries Hypothyroidism, acquired Unspecified hypothyroidism Chronic fatigue Other malaise and fatigue Thyroid nodule Nontoxic uninodular goiter [facility]* Diagnosis [facility]ervicalgia [facility] Diagnosis 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 and without status migrainosus- Primary Migraine without aura, with intractable migraine, so stated, without mention of status migrainosus Paresthesia of skin Disturbance of skin sensation [facility] Diagnosis Occipital pain- Primary Headache [facility] Diagnosis Hypothyroidism, acquired- Primary Unspecified hypothyroidism [facility] Diagnosis Hypothyroidism, acquired- Primary Unspecified hypothyroidism [facility]* Diagnosis APPOINTMENT CANCELLED- Primary [facility]* Diagnosis Hypothyroidism, acquired Unspecified hypothyroidism [facility]* Diagnosis Bilateral occipital neuralgia- Primary Other syndromes affecting cervical region [facility] Diagnosis 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 and with status migrainosus- Primary Migraine without aura, with intractable migraine, so stated, with status migrainosus [facility] Diagnosis 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 and with status migrainosus Migraine without aura, with intractable migraine, so stated, with status migrainosus [facility] Diagnosis 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 and with status migrainosus Migraine without aura, with intractable migraine, so stated, with status migrainosus [facility]* Diagnosis Sore throat- Primary Acute pharyngitis Viral URI Acute upper respiratory infections of unspecified site Viral URI Acute upper respiratory infections of unspecified site [facility]* Diagnosis Viral URI Acute upper respiratory infections of unspecified site [facility] Diagnosis Hypothyroidism, acquired- Primary Unspecified hypothyroidism [facility]* Diagnosis Hypothyroidism, acquired Unspecified hypothyroidism [facility] Diagnosis Abnormal finding on radiological examination of breast- Primary Other (abnormal) findings on radiological examination of breast [facility] Diagnosis Breast pain- Primary Mastodynia Bilateral fibrocystic breast changes Nipple discharge Other sign and symptom in breast Abnormal MRI, breast Other (abnormal) findings on radiological examination of breast Breast pain Mastodynia Bilateral fibrocystic breast changes Nipple discharge Other sign and symptom in breast Abnormal MRI, breast Other (abnormal) findings on radiological examination of breast [facility]* Diagnosis Breast pain Mastodynia Bilateral fibrocystic breast changes Nipple discharge Other sign and symptom in breast Abnormal MRI, breast Other (abnormal) findings on radiological examination of breast [facility]* Diagnosis Abnormal finding on radiology exam Other nonspecific (abnormal) findings on radiological and other examinations of body structure [facility] Diagnosis Abnormal finding on radiology exam Other nonspecific (abnormal) findings on radiological and other examinations of body structure [facility]* Diagnosis 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 Pre-op testing Preoperative examination, unspecified [facility] Diagnosis Nipple discharge- Primary Other sign and symptom in breast 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 [facility]* Diagnosis Personal history of breast cancer- Primary Personal history of malignant neoplasm of breast [facility] Diagnosis 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 [facility]* Diagnosis 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 note* Diagnosis Preoperative examination- Primary Preoperative examination, unspecified Hypothyroidism, acquired Unspecified hypothyroidism Bipolar 1 disorder (HCC) Bipolar I disorder, most recent episode (or current) unspecified Anxiety Anxiety state, unspecified Ductal carcinoma in situ (DCIS) of right breast Pre-op testing Preoperative examination, unspecified Migraine without status migrainosus, not intractable, unspecified migraine type * Assessment & Plan Note - Tor Acevedo APRN.CNP - 06/15/2024 10:42 AM EDT Associated Problem(s): Migraines Controlled with prn use of Relpax. * Assessment & Plan Note - Tor Acevedo APRN.CNP - 06/15/2024 6:46 AM EDT Associated Problem(s): Anxiety Controlled on Prozac * Assessment & Plan Note - Tor Acevedo APRN.CNP - 06/15/2024 6:46 AM EDT Associated Problem(s): Hypothyroidism, acquired Controlled on Synthroid documented in this encounter [facility] note* Diagnosis Preoperative examination- Primary Preoperative examination, unspecified Hypothyroidism, acquired Unspecified hypothyroidism Bipolar 1 disorder (HCC) Bipolar I disorder, most recent episode (or current) unspecified Anxiety Anxiety state, unspecified Ductal carcinoma in situ (DCIS) of right breast Pre-op testing Preoperative examination, unspecified Migraine without status migrainosus, not intractable, unspecified migraine type Ductal carcinoma in situ (DCIS) of right breast Pre-op testing Preoperative examination, unspecified documented in this encounter [facility] note* Diagnosis Preoperative examination- Primary Preoperative examination, unspecified Hypothyroidism, acquired Unspecified hypothyroidism Bipolar 1 disorder (HCC) Bipolar I disorder, most recent episode (or current) unspecified Anxiety Anxiety state, unspecified Ductal carcinoma in situ (DCIS) of right breast Pre-op testing Preoperative examination, unspecified Migraine without status migrainosus, not intractable, unspecified migraine type Encounter for postoperative examination after surgery for malignant neoplasm- Primary 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 ductal carcinoma of right breast (HCC) documented in this encounter [facility] note* Diagnosis Preoperative examination- Primary Preoperative examination, unspecified Hypothyroidism, acquired Unspecified hypothyroidism Bipolar 1 disorder (HCC) Bipolar I disorder, most recent episode (or current) unspecified Anxiety Anxiety state, unspecified Ductal carcinoma in situ (DCIS) of right breast Pre-op testing Preoperative examination, unspecified Migraine without status migrainosus, not intractable, unspecified migraine type Ductal carcinoma in situ (DCIS) of right breast documented in this encounter [facility] note* Diagnosis Preoperative examination- Primary Preoperative examination, unspecified Hypothyroidism, acquired Unspecified hypothyroidism Bipolar 1 disorder (HCC) Bipolar I disorder, most recent episode (or current) unspecified Anxiety Anxiety state, unspecified Ductal carcinoma in situ (DCIS) of right breast Pre-op testing Preoperative examination, unspecified Migraine without status migrainosus, not intractable, unspecified migraine type Post-operative state- Primary Other postprocedural status Post-operative pain Other acute postoperative pain documented in this encounter 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 Invasive ductal carcinoma of right breast (HCC) 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 ductal carcinoma of right breast (HCC) [facility]* Diagnosis Preoperative examination- Primary Preoperative examination, unspecified Hypothyroidism, acquired Unspecified hypothyroidism Bipolar 1 disorder (HCC) Bipolar I disorder, most recent episode (or current) unspecified Anxiety Anxiety state, unspecified Ductal carcinoma in situ (DCIS) of right breast Pre-op testing Preoperative examination, unspecified Migraine without status migrainosus, not intractable, unspecified migraine type 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 documented in this encounter [facility] for referral (narrative)* Diagnostic Procedure Only (Routine) - Pending Review Specialty Diagnoses / Procedures Referred By Jeramie em Referred To Contact XR IMAGING Diagnoses Cervicalgia Procedures XR CERVICAL 2V FLEX/EXT RADEX SPINE CERVICAL 2 OR 3 VIEWS Isabela Olivera APRN.CNP [address] [place] [address] [place] [address] Referral ID Status Reason Start Date Expiration Date Visits Requested Visits Authorized [id number] Pending Review Auto-Generat ed Referral 07/22/2023 08/20/2024 1 1 [facility] for visit Narrative* Diagnostic Procedure Only (Routine) - Closed Specialty Diagnoses / Procedures Referred By Jeramie em Referred To Contact XR IMAGING Diagnoses Cervicalgia Procedures XR CERVICAL 2V FLEX/EXT RADEX SPINE CERVICAL 2 OR 3 VIEWS Isabela Olivera APRN.CNP [address] [place] [address] [place] [address] Referral ID Status Reason Start Date Expiration Date V isits Requested Visits Authorized [id number] Closed Auto-Generate d Referral 07/22/2023 08/20/2024 1 1 [facility] for visit Narrative* Consult, Test, Treat (Routine) - Closed Specialty Diagnoses / Procedures Referred By Jeramie em Referred To Contact Anesthesiology Diagnoses Ductal carcinoma in situ (DCIS) of right breast Pre-op testing Procedures CONSULT TO ANESTHESIOLOGY OFFICE/OUTPATIENT [facility] 60 MINUTES Pradeep Taylor MD [address] [place] [address] Phone: tel: fax: Referral ID Status Reason Start Date Expiration Date V isits Requested Visits Authorized [id number] Closed PCP Requested Referral 06/01/2024 06/01/2025 1 1 [facility] Harrietta Prior Authorization (Routine) - Authorized Specialty Diagnoses / Procedures Referred By Jeramie t Referred To Contact Diagnoses Ductal carcinoma in situ (DCIS) of right breast Procedures GOSERELIN ACETATE IMPLANT Jaimee Randall MD [address] [place] [address] Phone: tel: fax: Jaimee Randall MD [address] [place] [address] Phone: tel: fax: Referral ID Status Reason Start Date Expiration Date V isits Requested Visits Authorized [id number] Authorized 07/16/2024 09/14/2025 5 5 [facility] Summary Purpose Family History Relationship Condition Age at Onset Recorded Date/T jhoana grandfather Malignant neoplasm Unknown grandmother Malignant neoplasm Unknown aunt Malignant neoplasm Unknown Advance Directives Advance Directive Response Recorded Date/ Time Living Will No December 09 12:43pm 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 No December 09, 2020 12:43pm Chief Complaint and Reason for Visit Chief Complaint Annual ([employer] WORK[employer]) PAP Reason for Visit PCOS (polycystic ova ronny syndrome) Encounter for routine gynecological examination Reason for Referral Specialty Diagnoses / Procedures Referred By Jeramie em Referred To Contact Crissy Don MD [address] [place] [address] Referral ID Status Reason Start Date Expiration Date V isits Requested Visits Authorized [id number] Pending Review 1 1 Specialty Diagnoses / Procedures Referred By Jeramie t Referred To Contact CT IMAGING Diagnoses 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 and with status migrainosus Procedures CT BRAIN WO IVCON CT HEAD/BRAIN W/O CONTRAST MATERIAL Crissy Don MD [address] [place] [address] [place] [address] Referral ID Status Reason Start Date Expiration Date Visits Requested Visits Authorized [id number] New Request Auto-Generat ed Referral 11/28/2023 12/27/2024 1 1 Specialty Diagnoses / Procedures Referred By Contac t Referred To Contact Diagnoses 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 and with status migrainosus Crissy Don MD [address] [place] [address] Referral ID Status Reason Start Date Expiration Date V isits Requested Visits Authorized [id number] Authorized 10/29/2023 11/27/2024 1 1 Referral ID Status Reason Start Date Expiration Date V isits Requested Visits Authorized [id number] Pending Review 11/28/2023 01/27/2024 1 1 Referral ID Status Reason Start Date Expiration Date V isits Requested Visits Authorized [id number] Closed Auto-Generate d Referral 11/28/2023 12/27/2024 1 1 Additional Source Comments INFORMATION SOURCE (unrecogn ized section and content) DATE CREATED AUTHOR 11/06/2019 [facility] DATE CREATED AUTHOR AUTHOR'S ORGANIZ ATION 04/05/2020 [facility] DATE CREATED AUTHOR AUTHOR'S ORGANIZ ATION 04/15/2023 [facility] DATE CREATED AUTHOR AUTHOR'S ORGANIZ ATION 08/06/2023 [facility] DATE CREATED AUTHOR AUTHOR'S ORGANIZ ATION 05/24/2024 [facility] DATE CREATED AUTHOR AUTHOR'S ORGANIZ ATION 07/02/2024 [facility] DATE CREATED AUTHOR AUTHOR'S ORGANIZ ATION 07/22/2024 [facility] DATE CREATED AUTHOR AUTHOR'S ORGANIZ ATION 07/31/2024 [facility] Care Teams (unrecognized sec tion and content) Team Status: Active Member Role Status Dates Kimberly CERVANTES PA-C Family Provider Active Kimberly CERVANTES PA-C Primary Care Provider Active Team Status: Inactive Member Role Status Dates Kimberly CERVANTES PA-C Primary Care Provider, Referri ng Provider Active Ghislaine Vincent CNM Attending Provider Active Team Status: Inactive Member Role Status Kimberly CERVANTES PA-C Primary Care Provider Active Ghislaine Vincent CNM Attending Provider, Referring Pro vider Active [employer] Relationship Specialty Start Date End Date Kimberly Kumari PA-C PCP - General Family Medicine 03/15/19 [employer] Relationship Specialty Start Date End Date Kimberly Kumari PA-C PCP - General Family Medicine 03/15/19 [employer] Relationship Specialty Start Date End Date Isabela Olivera, EPIC ANALYST.CASE AIDE [address] [place] [address] PCP - General Family Medicine 07/22/23 [employer] Relationship Specialty Start Date End Date Isabela Olivera, EPIC ANALYST.CASE AIDE [address] [place] [address] PCP - General Family Medicine 07/22/23 [employer] Relationship Specialty Start Date End Date Isabela Olivera, EPIC ANALYST.CASE AIDE [address] [place] [address] PCP - General Family Medicine 07/22/23 [employer] Relationship Specialty Start Date End Date Isabela Olivera, EPIC ANALYST.CASE AIDE [address] [place] [address] PCP - General Family Medicine 07/22/23 [employer] Relationship Specialty Start Date End Date Isabela Olivera, EPIC ANALYST.CASE AIDE [address] [place] [address] PCP - General Family Medicine 07/22/23 [employer] Relationship Specialty Start Date End Date Joyce Oliveraney, EPIC ANALYST.CASE AIDE [address] [place] [address] PCP - General Family Medicine 07/22/23 [employer] Relationship Specialty Start Date End Date JarodIsabela navarro, EPIC ANALYST.CASE AIDE [address] [place] [address] PCP - General Family Medicine 07/22/23 [employer] Relationship Specialty Start Date End Date JarodIsabela navarro, EPIC ANALYST.CASE AIDE [address] [place] [address] PCP - General Family Medicine 07/22/23 [employer] Relationship Specialty Start Date End Date DunkirkIsabela navarro, EPIC ANALYST.CASE AIDE [address] [place] [address] PCP - General Family Medicine 07/22/23 [employer] Relationship Specialty Start Date End Date Isabela Olivera, EPIC ANALYST.CASE AIDE [address] [place] [address] PCP - General Family Medicine 07/22/23 [employer] Relationship Specialty Start Date End Date JarodIsabela navarro, EPIC ANALYST.CASE AIDE [address] [place] [address] PCP - General Family Medicine 07/22/23 [employer] Relationship Specialty Start Date End Date JarodIsabela navarro, EPIC ANALYST.CASE AIDE [address] [place] [address] PCP - General Family Medicine 07/22/23 [employer] Relationship Specialty Start Date End Date Isabela Olivera, EPIC ANALYST.CASE AIDE [address] [place] [address] PCP - General Family Medicine 07/22/23 [employer] Relationship Specialty Start Date End Date DunkirkIsabela beaulieu, EPIC ANALYST.CASE AIDE [address] [place] [address] PCP - General Family Medicine 07/22/23 [employer] Relationship Specialty Start Date End Date DunkirkIsabela beaulieu, EPIC ANALYST.CASE AIDE [address] [place] [address] PCP - General [facility] Medicine 07/22/23 [employer] Relationship Specialty Start Date End Date DunkirkIsabela, EPIC ANALYST.CASE AIDE [address] [place] [address] PCP - General Family Medicine 07/22/23 [employer] Relationship Specialty Start Date End Date DunkirkIsabela beaulieu, EPIC ANALYST.CASE AIDE [address] [place] [address] PCP - General Family Medicine 07/22/23 [employer] Relationship Specialty Start Date End Date JarodIsabela beaulieu, EPIC ANALYST.CASE AIDE [address] [place] [address] PCP - General Family Medicine 07/22/23 [employer] Relationship Specialty Start Date End Date DunkirkIsabela, EPIC ANALYST.CASE AIDE [address] [place] [address] PCP - General [facility] Medicine 07/22/23 [employer] Relationship Specialty Start Date End Date DunkirkIsabela beaulieu, EPIC ANALYST.CASE AIDE [address] [place] [address] PCP - General Family Medicine 07/22/23 [employer] Relationship Specialty Start Date End Date Isabela Olivera, EPIC ANALYST.CASE AIDE [address] [place] [address] PCP - General Family Medicine 07/22/23 [employer] Relationship Specialty Start Date End Date Isabela Olivera, EPIC ANALYST.CASE AIDE [address] [place] [address] PCP - General Family Medicine 07/22/23 [employer] Relationship Specialty Start Date End Date Isabela Olivera, EPIC ANALYST.CASE AIDE [address] [place] [address] PCP - General Family Medicine 07/22/23 [employer] Relationship Specialty Start Date End Date Isabela Olivera, EPIC ANALYST.CASE AIDE [address] [place] [address] PCP - General Family Medicine 07/22/23 [employer] Relationship Specialty Start Date End Date Isabela Olivera, EPIC ANALYST.CASE AIDE [address] [place] [address] PCP - General Family Medicine 07/22/23 [place] [address] [place] [id number] Hematology/Oncology 06/02/24 [employer] Relationship Specialty Start Date End Date Isabela Olivera, EPIC ANALYST.CASE AIDE [address] [place] [address] PCP - General Family Medicine 07/22/23 [place] [address] [place] [address] Hematology/Oncology 06/02/24 [employer] Relationship Specialty Start Date End Date Isabela Olivera, EPIC ANALYST.CASE AIDE [address] [place], [place] [id number] PCP - General Family Medicine 07/22/23 [place] [address] [place] [address] Hematology/Oncology 06/02/24 [employer] Relationship Specialty Start Date End Date Isabela Olivera, EPIC ANALYST.CASE AIDE [address] [place], [place] [id number] PCP - General Family Medicine 07/22/23 [place] [address] [place] [address] Hematology/Oncology 06/02/24 [employer] Relationship Specialty Start Date End Date Isabela Olivera, EPIC ANALYST.CASE AIDE [address] [place], [place] [id number] PCP - General Family Medicine 07/22/23 [place] [address] [place] [address] Hematology/Oncology 06/02/24 [employer] Relationship Specialty Start Date End Date Isabela Olivera, EPIC ANALYST.CASE AIDE [address] [place], [place] [id number] PCP - General Family Medicine 07/22/23 [place] [address] [place] [address] Hematology/Oncology 06/02/24 [employer] Relationship Specialty Start Date End Date Isabela Olivera, EPIC ANALYST.CASE AIDE [address] [place], [place] [id number] PCP - General Family Medicine 07/22/23 [place] [address] [place] [address] Hematology/Oncology 06/02/24 [employer] Relationship Specialty Start Date End Date Isabela Olivera, EPIC ANALYST.CASE AIDE [address] [place], [place] [id number] PCP - General Family Medicine 07/22/23 [place] [address] [place] [address] Hematology/Oncology 06/02/24 [employer] Relationship Specialty Start Date End Date Isabela Olivera, EPIC ANALYST.CASE AIDE [address] [place] [address] PCP - General Family Medicine 07/22/23 [place] [address] [place] [address] Hematology/Oncology 06/02/24 [employer] Relationship Specialty Start Date End Date Isabela Olivera, EPIC ANALYST.CASE AIDE [address] [place], [place] [id number] PCP - General Family Medicine 07/22/23 [place] [address] [place] [address] Hematology/Oncology 06/02/24 [employer] Relationship Specialty Start Date End Date Jarod IsabelaMARIXANicRODO [address] [place] [address] PCP - General Family Medicine 07/22/23 [place] [address] [place] [address] Hematology/Oncology 06/02/24 Goals (unrecognized section and content) Goals may be documented in a n alternate section Source Comments (unrecognize d section and content) In the event this informatio n is protected by the Federal Confidentiality of Alcohol and Drug Abuse Patient Records regulations: The Federal rules restrict any use of the information to criminally investigate or prosecute any alcohol or drug abuse patient.[facility] SystemIn the event this information is protected by the Federal Confidentiality of Alcohol and Drug Abuse Patient Records regulations: The Federal rules restrict any use of the information to criminally investigate or prosecute any alcohol or drug abuse patient.[facility] SystemIn the event this information is protected by the Federal Confidentiality of Alcohol and Drug Abuse Patient Records regulations: The Federal rules restrict any use of the information to criminally investigate or prosecute any alcohol or drug abuse patient.[facility] SystemIn the event this information is protected by the Federal Confidentiality of Alcohol and Drug Abuse Patient Records regulations: The Federal rules restrict any use of the information to criminally investigate or prosecute any alcohol or drug abuse patient.[facility] SystemIn the event this information is protected by the Federal Confidentiality of Alcohol and Drug Abuse Patient Records regulations: The Federal rules restrict any use of the information to criminally investigate or prosecute any alcohol or drug abuse patient.[facility] SystemIn the event this information is protected by the Federal Confidentiality of Alcohol and Drug Abuse Patient Records regulations: The Federal rules restrict any use of the information to criminally investigate or prosecute any alcohol or drug abuse patient.[facility] SystemIn the event this information is protected by the Federal Confidentiality of Alcohol and Drug Abuse Patient Records regulations: The Federal rules restrict any use of the information to criminally investigate or prosecute any alcohol or drug abuse patient.[facility] SystemIn the event this information is protected by the Federal Confidentiality of Alcohol and Drug Abuse Patient Records regulations: The Federal rules restrict any use of the information to criminally investigate or prosecute any alcohol or drug abuse patient.[facility] SystemIn the event this information is protected by the Federal Confidentiality of Alcohol and Drug Abuse Patient Records regulations: The Federal rules restrict any use of the information to criminally investigate or prosecute any alcohol or drug abuse patient.[facility] SystemIn the event this information is protected by the Federal Confidentiality of Alcohol and Drug Abuse Patient Records regulations: The Federal rules restrict any use of the information to criminally investigate or prosecute any alcohol or drug abuse patient.[facility] SystemIn the event this information is protected by the Federal Confidentiality of Alcohol and Drug Abuse Patient Records regulations: The Federal rules restrict any use of the information to criminally investigate or prosecute any alcohol or drug abuse patient.[facility] SystemIn the event this information is protected by the Federal Confidentiality of Alcohol and Drug Abuse Patient Records regulations: The Federal rules restrict any use of the information to criminally investigate or prosecute any alcohol or drug abuse patient.[facility] SystemIn the event this information is protected by the Federal Confidentiality of Alcohol and Drug Abuse Patient Records regulations: The Federal rules restrict any use of the information to criminally investigate or prosecute any alcohol or drug abuse patient.[facility] SystemIn the event this information is protected by the Federal Confidentiality of Alcohol and Drug Abuse Patient Records regulations: The Federal rules restrict any use of the information to criminally investigate or prosecute any alcohol or drug abuse patient.[facility] SystemIn the event this information is protected by the Federal Confidentiality of Alcohol and Drug Abuse Patient Records regulations: The Federal rules restrict any use of the information to criminally investigate or prosecute any alcohol or drug abuse patient.[facility] SystemIn the event this information is protected by the Federal Confidentiality of Alcohol and Drug Abuse Patient Records regulations: The Federal rules restrict any use of the information to criminally investigate or prosecute any alcohol or drug abuse patient.[facility] SystemIn the event this information is protected by the Federal Confidentiality of Alcohol and Drug Abuse Patient Records regulations: The Federal rules restrict any use of the information to criminally investigate or prosecute any alcohol or drug abuse patient.[facility] SystemIn the event this information is protected by the Federal Confidentiality of Alcohol and Drug Abuse Patient Records regulations: The Federal rules restrict any use of the information to criminally investigate or prosecute any alcohol or drug abuse patient.[facility] SystemIn the event this information is protected by the Federal Confidentiality of Alcohol and Drug Abuse Patient Records regulations: The Federal rules restrict any use of the information to criminally investigate or prosecute any alcohol or drug abuse patient.[facility] SystemIn the event this information is protected by the Federal Confidentiality of Alcohol and Drug Abuse Patient Records regulations: The Federal rules restrict any use of the information to criminally investigate or prosecute any alcohol or drug abuse patient.[facility] SystemIn the event this information is protected by the Federal Confidentiality of Alcohol and Drug Abuse Patient Records regulations: The Federal rules restrict any use of the information to criminally investigate or prosecute any alcohol or drug abuse patient.[facility] SystemIn the event this information is protected by the Federal Confidentiality of Alcohol and Drug Abuse Patient Records regulations: The Federal rules restrict any use of the information to criminally investigate or prosecute any alcohol or drug abuse patient.[facility] SystemIn the event this information is protected by the Federal Confidentiality of Alcohol and Drug Abuse Patient Records regulations: The Federal rules restrict any use of the information to criminally investigate or prosecute any alcohol or drug abuse patient.[facility] SystemIn the event this information is protected by the Federal Confidentiality of Alcohol and Drug Abuse Patient Records regulations: The Federal rules restrict any use of the information to criminally investigate or prosecute any alcohol or drug abuse patient.[facility] SystemIn the event this information is protected by the Federal Confidentiality of Alcohol and Drug Abuse Patient Records regulations: The Federal rules restrict any use of the information to criminally investigate or prosecute any alcohol or drug abuse patient.[facility] SystemIn the event this information is protected by the Federal Confidentiality of Alcohol and Drug Abuse Patient Records regulations: The Federal rules restrict any use of the information to criminally investigate or prosecute any alcohol or drug abuse patient.[facility] SystemIn the event this information is protected by the Federal Confidentiality of Alcohol and Drug Abuse Patient Records regulations: The Federal rules restrict any use of the information to criminally investigate or prosecute any alcohol or drug abuse patient.[facility] SystemIn the event this information is protected by the Federal Confidentiality of Alcohol and Drug Abuse Patient Records regulations: The Federal rules restrict any use of the information to criminally investigate or prosecute any alcohol or drug abuse patient.[facility] SystemIn the event this information is protected by the Federal Confidentiality of Alcohol and Drug Abuse Patient Records regulations: The Federal rules restrict any use of the information to criminally investigate or prosecute any alcohol or drug abuse patient.[facility] SystemIn the event this information is protected by the Federal Confidentiality of Alcohol and Drug Abuse Patient Records regulations: The Federal rules restrict any use of the information to criminally investigate or prosecute any alcohol or drug abuse patient.[facility] SystemIn the event this information is protected by the Federal Confidentiality of Alcohol and Drug Abuse Patient Records regulations: The Federal rules restrict any use of the information to criminally investigate or prosecute any alcohol or drug abuse patient.[facility] SystemIn the event this information is protected by the Federal Confidentiality of Alcohol and Drug Abuse Patient Records regulations: The Federal rules restrict any use of the information to criminally investigate or prosecute any alcohol or drug abuse patient.[facility] SystemIn the event this information is protected by the Federal Confidentiality of Alcohol and Drug Abuse Patient Records regulations: The Federal rules restrict any use of the information to criminally investigate or prosecute any alcohol or drug abuse patient.[facility] SystemIn the event this information is protected by the Federal Confidentiality of Alcohol and Drug Abuse Patient Records regulations: The Federal rules restrict any use of the information to criminally investigate or prosecute any alcohol or drug abuse patient.[facility] SystemIn the event this information is protected by the Federal Confidentiality of Alcohol and Drug Abuse Patient Records regulations: The Federal rules restrict any use of the information to criminally investigate or prosecute any alcohol or drug abuse patient.[facility] SystemIn the event this information is protected by the Federal Confidentiality of Alcohol and Drug Abuse Patient Records regulations: The Federal rules restrict any use of the information to criminally investigate or prosecute any alcohol or drug abuse patient.[facility] SystemIn the event this information is protected by the Federal Confidentiality of Alcohol and Drug Abuse Patient Records regulations: The Federal rules restrict any use of the information to criminally investigate or prosecute any alcohol or drug abuse patient.[facility] SystemIn the event this information is protected by the Federal Confidentiality of Alcohol and Drug Abuse Patient Records regulations: The Federal rules restrict any use of the information to criminally investigate or prosecute any alcohol or drug abuse patient.[facility] SystemIn the event this information is protected by the Federal Confidentiality of Alcohol and Drug Abuse Patient Records regulations: The Federal rules restrict any use of the information to criminally investigate or prosecute any alcohol or drug abuse patient.[facility] SystemIn the event this information is protected by the Federal Confidentiality of Alcohol and Drug Abuse Patient Records regulations: The Federal rules restrict any use of the information to criminally investigate or prosecute any alcohol or drug abuse patient.[facility] SystemIn the event this information is protected by the Federal Confidentiality of Alcohol and Drug Abuse Patient Records regulations: The Federal rules restrict any use of the information to criminally investigate or prosecute any alcohol or drug abuse patient.[facility] SystemIn the event this information is protected by the Federal Confidentiality of Alcohol and Drug Abuse Patient Records regulations: The Federal rules restrict any use of the information to criminally investigate or prosecute any alcohol or drug abuse patient.[facility] SystemIn the event this information is protected by the Federal Confidentiality of Alcohol and Drug Abuse Patient Records regulations: The Federal rules restrict any use of the information to criminally investigate or prosecute any alcohol or drug abuse patient.[facility] SystemIn the event this information is protected by the Federal Confidentiality of Alcohol and Drug Abuse Patient Records regulations: The Federal rules restrict any use of the information to criminally investigate or prosecute any alcohol or drug abuse patient.[facility] SystemIn the event this information is protected by the Federal Confidentiality of Alcohol and Drug Abuse Patient Records regulations: The Federal rules restrict any use of the information to criminally investigate or prosecute any alcohol or drug abuse patient.[facility] SystemIn the event this information is protected by the Federal Confidentiality of Alcohol and Drug Abuse Patient Records regulations: The Federal rules restrict any use of the information to criminally investigate or prosecute any alcohol or drug abuse patient.[facility] SystemIn the event this information is protected by the Federal Confidentiality of Alcohol and Drug Abuse Patient Records regulations: The Federal rules restrict any use of the information to criminally investigate or prosecute any alcohol or drug abuse patient.[facility] SystemIn the event this information is protected by the Federal Confidentiality of Alcohol and Drug Abuse Patient Records regulations: The Federal rules restrict any use of the information to criminally investigate or prosecute any alcohol or drug abuse patient.[facility] SystemIn the event this information is protected by the Federal Confidentiality of Alcohol and Drug Abuse Patient Records regulations: The Federal rules restrict any use of the information to criminally investigate or prosecute any alcohol or drug abuse patient.[facility] SystemIn the event this information is protected by the Federal Confidentiality of Alcohol and Drug Abuse Patient Records regulations: The Federal rules restrict any use of the information to criminally investigate or prosecute any alcohol or drug abuse patient.[facility] SystemIn the event this information is protected by the Federal Confidentiality of Alcohol and Drug Abuse Patient Records regulations: The Federal rules restrict any use of the information to criminally investigate or prosecute any alcohol or drug abuse patient.[facility] SystemIn the event this information is protected by the Federal Confidentiality of Alcohol and Drug Abuse Patient Records regulations: The Federal rules restrict any use of the information to criminally investigate or prosecute any alcohol or drug abuse patient.[facility] SystemIn the event this information is protected by the Federal Confidentiality of Alcohol and Drug Abuse Patient Records regulations: The Federal rules restrict any use of the information to criminally investigate or prosecute any alcohol or drug abuse patient.[facility] SystemIn the event this information is protected by the Federal Confidentiality of Alcohol and Drug Abuse Patient Records regulations: The Federal rules restrict any use of the information to criminally investigate or prosecute any alcohol or drug abuse patient.[facility] SystemIn the event this information is protected by the Federal Confidentiality of Alcohol and Drug Abuse Patient Records regulations: The Federal rules restrict any use of the information to criminally investigate or prosecute any alcohol or drug abuse patient.[facility] SystemIn the event this information is protected by the Federal Confidentiality of Alcohol and Drug Abuse Patient Records regulations: The Federal rules restrict any use of the information to criminally investigate or prosecute any alcohol or drug abuse patient.[facility] SystemIn the event this information is protected by the Federal Confidentiality of Alcohol and Drug Abuse Patient Records regulations: The Federal rules restrict any use of the information to criminally investigate or prosecute any alcohol or drug abuse patient.[facility] SystemIn the event this information is protected by the Federal Confidentiality of Alcohol and Drug Abuse Patient Records regulations: The Federal rules restrict any use of the information to criminally investigate or prosecute any alcohol or drug abuse patient.[facility] SystemIn the event this information is protected by the Federal Confidentiality of Alcohol and Drug Abuse Patient Records regulations: The Federal rules restrict any use of the information to criminally investigate or prosecute any alcohol or drug abuse patient.[facility] SystemIn the event this information is protected by the Federal Confidentiality of Alcohol and Drug Abuse Patient Records regulations: The Federal rules restrict any use of the information to criminally investigate or prosecute any alcohol or drug abuse patient.[facility] SystemIn the event this information is protected by the Federal Confidentiality of Alcohol and Drug Abuse Patient Records regulations: The Federal rules restrict any use of the information to criminally investigate or prosecute any alcohol or drug abuse patient.[facility] SystemIn the event this information is protected by the Federal Confidentiality of Alcohol and Drug Abuse Patient Records regulations: The Federal rules restrict any use of the information to criminally investigate or prosecute any alcohol or drug abuse patient.[facility] SystemIn the event this information is protected by the Federal Confidentiality of Alcohol and Drug Abuse Patient Records regulations: The Federal rules restrict any use of the information to criminally investigate or prosecute any alcohol or drug abuse patient.[facility] Reason for Visit (unrecogniz ed section and content) Reason Comments Consult Specialty Diagnoses / Procedures Referred By Contac t Referred To Contact Radiation Oncology Diagnoses Ductal carcinoma in situ (DCIS) of right breast Procedures RAD/ONC CONSULT OFFICE/OUTPATIENT [facility] [place] 60 MINUTES Pradeep Taylor MD [address] [place] [address] Phone: tel: fax: Referral ID Status Reason Start Date Expiration Date V isits Requested Visits Authorized [id number] Closed PCP Requested Referral 06/01/2024 06/01/2025 1 1 Specialty Diagnoses / Procedures Referred By Jeramie t Referred To Contact Plastic Surgery Diagnoses Ductal carcinoma in situ (DCIS) of right breast Procedures CONSULT TO PLASTIC SURGERY OFFICE/OUTPATIENT [facility] [place] 60 MINUTES Pradeep Taylor MD [address] [place] [address] Phone: tel: fax: Referral ID Status Reason Start Date Expiration Date V isits Requested Visits Authorized [id number] Closed PCP Requested Referral 05/31/2024 05/31/2025 1 1 Reason Comments Follow Up Occipital pain, nerv e block Specialty Diagnoses / Procedures Referred By Jeramie em Referred To Contact Neurology / ADULT NEUROLOGY Diagnoses Migraine without aura, not intractable, with status migrainosus Procedures INJECTION AA&/STRD GREATER OCCIPITAL NERVE NERVE BLOCK GREATER OCCIPITAL NERVE BLCK [facility]TR [facility]CCIP[facility] [id number] - NERVE BLCK GRTR OCCIPITAL [facility] [id number] - NERVE BLOCK GREATER OCCIPITAL 14793 (CPT ) - INJECTION AA&/STRD GREATER OCCIPITAL NERVE Free Text Procedure Description bilateral occipital nerve [place] [id number] [address]/[facility]-[address] [place], [place] [id number] [place] [id number] [address]/[facility]-[address] [id number] Referral ID Status Reason Start Date Expiration Date Visits Re quested Visits Authorized [id number] Closed 09/18/2023 02/24/2024 1 1 Reason Comments Consult migraines Reason Onset Date Comments Refill Request 05/26/2023 Reason Onset Date Comments Refill Request 06/04/2023 Reason Comments Hair/Scalp Problem 2 indentations on sk ull, sensitive to touch Fatigue Onset 9 months Reason Comments Established Patient Painful indentations on scalp and on neck and shoulders through scalp Reason Comments Initial Consult Dermatology referral Reason Comments Patient Question Reason Comments Occipital Pain Reason Comments Thyroid Problem Dx 2 years ago with hypothyroidism, current symptoms cold,indentations on scalp, migraines, joint pain, hair loss, weight loss previously dx with pcos Reason Comments Appointment Appointment Cancelle d: 08/29/2023 Reason Comments Nerve Block Referral ID Status Reason Start Date Expiration Date V isits Requested Visits Authorized [id number] New Request 08/12/2023 11/10/2023 99 99 Reason Onset Date Comments Refill Request 10/09/2023 Reason Comments Refill Request Reason Onset Date Comments Refill Request 11/21/2023 Reason Onset Date Comments Refill Request 11/25/2023 Reason Comments Established Patient Reason Comments Radiology CT Specialty Diagnoses / Procedures Referred By Contac t Referred To Contact CT IMAGING Diagnoses 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 and with status migrainosus Procedures CT BRAIN WO IVCON CT HEAD/BRAIN W/O CONTRAST MATERIAL Crissy Don MD [address] [place] [address] [place] [address] Referral ID Status Reason Start Date Expiration Date V isits Requested Visits Authorized [id number] Closed Auto-Generate d Referral 11/28/2023 12/27/2024 1 1 Reason Comments Ear Pain right and sore throa t x this am Reason Comments Outside Recommended Biopsy Review Reason Comments Patient Update Reason Comments Hypothyroidism Specialty Diagnoses / Procedures Referred By Contac t Referred To Contact Endocrinology / ENDOCRINOLOGY Diagnoses Thyroid levels Procedures VIDEO SPEC DIRECT SCHED Self Glory Armstrong MD [address] [place] [address] Phone: tel: fax: Referral ID Status Reason Start Date Expiration Date V isits Requested Visits Authorized [id number] Closed Patient Cleared - Qualified 100% FAS 03/29/2024 06/27/2024 99 99 Reason Comments Radio Imaging Study Comments Reason Comments Radiology Mammogram Specialty Diagnoses / Procedures Referred By Contac t Referred To Contact [facility] Diagnoses Breast pain Bilateral fibrocystic breast changes Nipple discharge Abnormal MRI, breast Procedures МАРИЯ DIAG W CONSTANTIN BILATERAL DIGITAL BREAST TOMOSYNTHESIS BILATERAL Lissette Mcleod, EPIC ANALYST.CASE AIDE [address] [place] [address] Phone: tel: fax: [facility] [address] [place] [address] Referral ID Status Reason Start Date Expiration Date V isits Requested Visits Authorized [id number] Closed Auto-Generate d Referral 05/10/2024 02/23/2025 1 1 Reason Comments Radiology Invasive Breast Procedure Specialty Diagnoses / Procedures Referred By Contac t Referred To Contact [facility] Diagnoses Abnormal finding on radiology exam Procedures US BIOPSY BREAST RIGHT BX BREAST W/DEVICE 1ST LESION ULTRASOUND GUID Radha Kamara MD [address] [id number] Phone: tel: fax: [facility] [address] [place] [address] Referral ID Status Reason Start Date Expiration Date V isits Requested Visits Authorized [id number] Closed Auto-Generate d Referral 05/27/2024 02/23/2025 1 1 Reason Comments Results Reason Comments Radiology MRI Specialty Diagnoses / Procedures Referred By Contac t Referred To Contact [facility] IM[facility]ING Diagnoses Abnormal finding on radiology exam Procedures MRI BREAST BX WO/W IVCON RIGHT BX BREAST W/DEVICE 1ST LESION MAGNETIC RES GUID Radha Kamara MD [address] [id number] Phone: tel: fax: [facility] Referral ID Status Reason Start Date Expiration Date V isits Requested Visits Authorized [id number] Closed Auto-Generate d Referral 05/27/2024 02/23/2025 1 1 Reason Comments Results Appointment Reason Comments Pre-Op Teaching Reason Comments Breast Cancer Reason Comments PHOTOS TAKEN Reason Comments Radiology NM Reason Comments Established Patient Reason Comments Returning Patient's Call Reason Comments Post Op FOR RECORDS PERTAINING TO PATIENTS WHO ARE OR HAVE BEEN ENROLLED IN A CHEMICAL DEPENDENCY/SUBSTANCEABUSE PROGRAM, SOME INFORMATION MAY BE OMITTED. This clinical summary was aggregated from multiple sources. Caution should be exercised in using it in the provision of clinical care. This summary normalizes information from multiple sources, and as a consequence, information in this document may materially change the coding, format and clinical context of patient data. In addition, data may be omitted in some cases. CLINICAL DECISIONS SHOULD BE BASED ON THE PRIMARY CLINICAL RECORDS. [employer] [facility]. provides no warranty or guarantee of the accuracy or completeness of information in this document.
[2024-08-05 07:19] VITALS: BP 131/87; PULSE 85; RESP 16; TEMP 36.8; O2SAT 99
== END 2024-08-05 07:24 | disposition home or self-care (01) ==
PROVIDERS: Emergency Provider Emergency Medicine; PCP Family Medicine; Visit Provider Emergency Medicine
DX: R51.9 Headache, unspecified (principal); Z85.3 Personal history of malignant neoplasm of breast; Z88.0 Allergy status to penicillin; E28.2 Polycystic ovarian syndrome
CPT/HCPCS: 96360; 99283; A4216

== ENCOUNTER 2024-10-24 06:30 | Emergency (ER) | payer OTHER, SELFPAY ==
[2024-10-24 06:31] VITALS: BP 147/92; PULSE 83; RESP 18; TEMP 36.4; O2SAT 100; BMI 30.7
--- NOTE | 2024-10-24 06:33 | EX.ED.VIS.HA ---
HPI <Dr. Laura Duncan MD - Last Filed: 10/26/24 07:00> History of Present Illness Chief Complaint: Headache Narrative Narrative: Patient is a 43-year-old female presenting emergency department for headache. Patient has past medical history of migraine and breast cancer with double mastectomy in May and was started on anastrozole in June. She is seen by neurology for migraines. Patient has been seen in the emergency department before for migraines. Patient states that this headache started around 2 AM. Reports that it started on the right side of her head towards the top. States its migrated down to her right temporal region. Denies any aura or visual changes. Reports photophobia. States this is typical of her migraines. Reports nausea with 3 episodes of nonbloody nonbilious vomiting. Attempted to take her triptan but vomited it back up. Reports the migraine being about a 9 out of 10 pain scale. Denies any numbness or weakness in her extremities. Denies any fever or neck pain. Denies any falls. Prior similar symptoms: Yes PFSH <Dr. Laura Duncan MD - Last Filed: 10/26/24 07:00> PFS Medical History Breast cancer Contact with or suspected exposure to other viral communicable disease Acute upper respiratory infection Chronic bronchitis with acute exacerbation Pneumonia Acute bronchitis Acute upper respiratory infection Sore throat Acute left otitis media Anxiety Depression PCOS (polycystic ovarian syndrome) History of miscarriage Home Medications ?Medication ?Instructions ?Recorded ?Last Taken ?Type levothyroxine 100 mcg tablet 100 mcg PO MOTUWETHFR 04/19/24 Unknown History fluoxetine 10 mg capsule (Prozac) 10 mg PO QDAY #30 caps 06/04/24 Unknown Rx fluoxetine 40 mg capsule (Prozac) 40 mg PO DAILY #90 caps 06/08/24 Unknown Rx anastrozole 1 mg tablet 1 mg PO DAILY 08/05/24 Unknown History eletriptan 40 mg tablet 40 mg PO DAILY 08/05/24 Unknown History ondansetron HCl 4 mg tablet 4 mg PO Q8H PRN PRN nausea/vomiting 08/05/24 Unknown History leuprolide 1 mg/0.2 mL 1 mg subcut .q3mo 10/24/24 Unknown History subcutaneous kit losartan 25 mg tablet 25 mg PO DAILY 10/24/24 Unknown History prochlorperazine maleate 5 mg 5 mg PO TID PRN headache #20 tabs 10/24/24 Unknown Rx tablet (Compazine) prochlorperazine maleate 5 mg 5 mg PO TID PRN headache 7 days 10/24/24 Unknown Rx tablet (Compazine) #20 tabs Allergy/AdvReac Type Severity Reaction Status Date / Time Penicillins Allergy Anaphylaxis Verified 08/05/24 06:12 Family History Grandfather Cancer lung Grandmother Cancer stomach Aunt Cancer osteo myeloma Surgical History History of bilateral mastectomy S/P tonsillectomy S/P D&C (status post dilation and curettage) Social History household members: significant other housing: house number of children: 0 current occupational status: employed 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 Laura Duncan MD - Last Filed: 10/26/24 07:00> ROS ED ROS Narrative see HPI EXAM <Dr. Laura Duncan MD - Last Filed: 10/26/24 07:00> Physical Exam Narrative Exam Narrative: Vital signs: Reviewed General: Alert and orientedx3. No acute distress HEENT: Head is normocephalic and atraumatic, sinuses nontender, pupils equal round and reactive. Nares are patent. Oropharynx and throat exams normal. Neck: Supple without lymphadenopathy nontender. No nuchal rigidity. Normal active range of motion of neck. Cardiovascular: Regular rate and rhythm, no murmurs. No rubs or gallops. Normal S1 and S2 Respiratory: Clear to auscultation bilaterally. No wheezes, rales, rhonchi Abdominal: Soft and nontender. Normal bowel sounds. No guarding or rebound. Nonsurgical abdomen Extremities: No tenderness. No bruising. Normal range of motion. Normal sensation. Skin: No rash or redness. Neurological: Cranial nerves II through XII are grossly intact. Normal strength and sensation. Normal cerebellar function The rest of the physical exam is unremarkable Const Vital Signs: 10/24/24 06:31 Temperature 97.5 F L Temperature Source Oral Pulse Rate 83 Respiratory Rate 18 Blood Pressure 147/92 H Blood Pressure Mean 110 Pulse Ox 100 Oxygen Delivery Method Room Air NIHSS NIHSS Initial: 1a Level of Consciousness: 0 1b LOC Questions (Score 2 if aphasic/stupor): 0 1c LOC Commands (Only score 1st attempt): 0 2 Best Gaze (If aphasic, use reflexive mvmts.): 0 3 Visual: 0 4 Facial Palsy: 0 5 Motor Arm Right (UN = amputation/fusion): 0 5 Motor Arm Left: 0 6 Motor Leg Right: 0 6 Motor Leg Left: 0 7 Limb ataxia (Only + if out of proportion): 0 8 Sensory (Aphasia/stupor=0 or 1, coma=2): 0 9 Best Language: 0 10 Dysarthria (mute, coma=2, intubated=UN): 0 11 Extinction and Inattention (only scored if +): 0 Total Score: 0 <Dr. Raymon Grace DO - Last Filed: 10/24/24 08:10> Physical Exam Const Vital Signs: 10/24/24 06:31 Temperature 97.5 F L Temperature Source Oral Pulse Rate 83 Respiratory Rate 18 Blood Pressure 147/92 H Blood Pressure Mean 110 Pulse Ox 100 Oxygen Delivery Method Room Air NIHSS NIHSS Initial: Total Score: 0 [facility] <Dr. Laura Duncan MD - Last Filed: 10/26/24 07:00> [facility] Narrative Medical decision making narrative: Patient is a 43-year-old female presenting to emergency department for a headache. Patient was seen and examined. Vitals are stable. Patient resting bed comfortably no acute distress. I reviewed the triage note from nursing staff. Patient informs me that this is similar to her migraine headaches in the past. Denies it being different to me on multiple occasions. States she gets photophobia, nausea and vomiting with her migraines typically. Previous ED visit was reviewed. Patient had received IV fluids, Compazine and Benadryl with improvement of her headache. This does sound typical of her migraine headaches. No concerning features. Normal neurologic exam. No indication for CT brain imaging at this time. Fluids, Compazine, Benadryl, Toradol and Tylenol ordered. Will reevaluate after medications. History & Record Review Discussion w/independent historian: Patient and Significant other <Dr. Raymon Grace, DO - Last Filed: 10/24/24 08:10> [facility] Treatment and Re-Evaluation Narrative: Patient was turned over to me by Dr. Duncan@0700 Brief history: 43-year-old female with headache. Patient endorses that this headache is similar to prior migraines. Patient denies sudden onset or thunderclap headache, denies maximal intensity within 1 minute, neck pain, stiffness, changes in vision, fever, syncope, or seizures associated with headache. Physical exam: HEENT exam unremarkable. Oral mucosa moist. Neck supple. No meningismus. The patient was alert and oriented x3, neuro exam at baseline, cranial nerves II through XII are intact. No pain with extraocular muscle movement. There is negative test of skew. 5 of 5 strength in upper and lower extremities in flexion extension. Intact sensation to light touch in upper and lower extremity dermatomes. No truncal or extremity ataxia. No dysdiadochokinesia. Normal gait. 2+ reflexes in upper and lower extremities. No meningeal signs. Negative Babinski. NIH of 0. Labs and images reviewed (if obtained): N/A MDM/plan: Patient was initially hemodynamically stable, afebrile and nontoxic-appearing. She appeared well. Comfortable. No acute distress. Repeat neurologic exam was intact/benign. There were no focal neurologic deficits. There is no obvious meningeal signs. No focal deficits or concerning history to suggest subarachnoid hemorrhage, cerebral vein thrombosis, ICH, carotid artery dissection etc. Patient's history and physical exam are consistent with migraine. She noted symptomatic improvement after Compazine, Benadryl, Tylenol and fluids. Patient is appropriate discharge with close outpatient follow with neurology. Compazine prescription given for ongoing symptoms at home. Strict return precautions were discussed. Discharge Plan Triage Chief Complaint: Headache ED Provider: Laura Duncan Dx/Rx/DC Orders Clinical Impression: Migraine Instructions: Self-Care for Headaches, Migraine Triggers, ED, Migraine (Classical) Prescriptions: New prochlorperazine maleate [Compazine] 5 mg tablet 5 mg PO TID PRN (Reason: headache) Qty: 20 0RF prochlorperazine maleate [Compazine] 5 mg tablet 5 mg PO TID PRN (Reason: headache) 7 Days Qty: 20 0RF No Action levothyroxine 100 mcg tablet 100 mcg PO MOTUWETHFR Patient Comments: TAKE 1 TABLET BY MOUTH 5 DAYS OF THE WEEK, SKIP ON 2 DAYS OF THE WEEK (MAY BE FRIDAY AND FRIDAY) losartan 25 mg tablet 25 mg PO DAILY leuprolide 1 mg/0.2 mL kit 1 mg subcut .q3mo eletriptan 40 mg tablet 40 mg PO DAILY anastrozole 1 mg tablet 1 mg PO DAILY ondansetron HCl 4 mg tablet 4 mg PO Q8H PRN PRN (Reason: nausea/vomiting) fluoxetine [Prozac] 10 mg capsule 10 mg PO QDAY Qty: 30 12RF fluoxetine [Prozac] 40 mg capsule 40 mg PO DAILY Qty: 90 12RF Primary Care Provider: Isabela Harris Referrals: Isabela Harris, [employer] [Primary Care Provider] - 2 Days Activity Restrictions/Additional Instructions: Your evaluation in the Emergency Department did not reveal any acute reason for admission. However, I want to emphasize that you may be early in the course of a disease process or illness even if it is not present. For this reason you should follow-up within 24 hours for reevaluation with either your primary care physician or if necessary back here in the Emergency Department. You should return to the Emergency Department immediately if your symptoms worsen or new symptoms develop. Print Language: Citizen Of [place] Disposition Disposition: Home, Self Care Discharge Date/Time: 10/24/24 08:26
[2024-10-24] MEDS: 0.9% Normal Saline (1000mL) 1,000 ML 1000 ML IV (06:48)
[2024-10-24] MEDS: DiphenhydrAMINE 50 MG/ML Syringe 25 MG IV (06:48)
--- OUTSIDE RECORDS SUMMARY | 2024-10-24 07:05 | XMS RPT_ITS | CCD ---
Author Organization [facility] Care Team Providers Care Penal Officer Name Role Phone Josephine Meadows Unavailable Unavailable Milana RN, Jessi Stephens Unavailable Unavailable Milana RIVER, Jessi A Unavailable Unavailable Jania Davila Unavailable Josephine Meadows Unavailable Unavailable Josephine Meadows Unavailable Unavailable Una AVELINO CERVANTES Primary Care Provider Una AVELINO CERVANTES Referring Provider [phone] ANKIT Nova Attending Provider [facility], Primary Care Unavailable [facility], Consulting Unavailable [facility], Attending Unavailable [facility], Admitting Unavailable PROVIDER, UNKNOWN Consulting Unavailable [facility], Admitting Unavailable [facility], Primary Care Unavailable [facility], Consulting Unavailable [facility], Attending Unavailable PROVIDER, UNKNOWN Consulting Unavailable [facility], Admitting Unavailable [facility], Primary Care Unavailable [facility], Consulting Unavailable [facility] [place], Attending Unavailable PROVIDER, UNKNOWN Consulting Unavailable [facility], Admitting Unavailable [facility], Primary Care Unavailable [facility], Consulting Unavailable [facility] [place], Attending Unavailable PROVIDER, UNKNOWN Consulting Unavailable Una Kimberly YOU Primary Care Provider [phone] Jarod TRACK MAN.Isabela KOEHLER Primary Care Provi subha ISABELA OLIVERA Referring Unavailable ISABELA OLIVERA Primary Care Unavailable Jaimee Randall MD Unavailable ISABELA OLIVERA Primary Care Unavailable ELLY CUELLAR Referring Unavailable ELLY CUELLAR Attending Unavailable ISABELA OLIVERA Primary Care Unavailable ELLY CUELLAR Referring Unavailable ELLY CUELLAR Attending Unavailable JAROD, ISABELA Primary Care Unavailable PRADEEP TAYLOR Attending Unavailable Una PA-C, Primary Care Provider Brandan Woo DO, Dr. Gray Attending Provider Dr. Marina Guzman DO Referring Provider Una PA-C, Referring Provider [phone] Alex Garvin Attending Provider Dr. Sukhjinder Lopez DO Attending Provider [phone] Dr. Sukhjinder Lopez DO Emergency Provider Mehul Perez MD Emergency Provider [phone] Marian Guzman Referring Unavailabl e Marina Guzman Attending Unavailabl e Una PA, Primary Care Unavailable Sukhjinder Lopez Attending Unavailable Una PA, Primary Care Unavailable Una PA, Primary Care Unavailable Mehul Perez Attending Unavailable Una PA, Referring Unavailable Una PA, Primary Care Unavailable Chery Xiong Attending Unavailable Marina Guzman Attending Unavailabl e Una PA, Referring Unavailable Una PA, Primary Care Unavailable Una PA, Primary Care Unavailable Chery Xiong Referring Unavailable Chery Xiong Attending Unavailable Una PA, Primary Care Unavailable Chery Xiong Referring Unavailable Chery Xiong Attending Unavailable Erasmo PAAlex Attending Unavailable Una PA, Referring Unavailable Una PA, Primary Care Unavailable Erasmo Alex CERVANTES Attending Unavailable Una PA, Referring Unavailable Una PA, Primary Care Unavailable JAROD, ISABELA Primary Care Unavailable LUIS MORELAND Attending Unavailable Kimberly Campa RN, Mary Unavailable Emely OLGA Pandey Referring Unavailable JAROD, ISABELA Primary Care Unavailable JAROD, ISABELA Attending Unavailable JAROD, ISABELA Primary Care Unavailable JAIMEE RANDALL Referring Unavailable JAROD, ISABELA Primary Care Unavailable JAROD, ISABELA Primary Care Unavailable KARY RIZZO Attending Unavailable [facility] Primary Care Unavailable ODILONYMATEO Referring Unavailable ONGER, JAIMEE Referring Unavailable [facility] Primary Care Unavailable PASKERT, OLGA [facility] Un[facility] Care Unavailable PASKERT, OLGA Referring Un[facility] Care Unavailable PASKERT, OLGA Referring Unavailable PASKERT, OLGA Ref[facility] Care Unavailable PRADEEP TAYLOR Attending Unavailable [facility] Primary Care Unavailable TAYLORPRADEEP Referring Unavailable [facility] Primary Care Unavailable TAYLORPRADEEP Referring Unavailable [facility] Primary Care Unavailable PRADEEP TAYLOR Attending Unavailable [facility] Unavailable RIO SANCHEZ Referring Unavailable [facility] Primary Care Unavailable TAYLOR, PRADEEP Referring Unavailable [facility] Primary Care Unavailable TAYLORPRADEEP Referring Unavailable [facility] Primary Care Unavailable PRADEEP TAYLOR Referring Unavailable [facility] Unavailable [facility] Primary Care Unavailable ISIAH MESSINA Attending Unavailable ONGER, JAIMEE Referring Unavailable [facility] Unavailable ONGER, JAIMEE Attending Unavailable [facility] Unavailable ONGER, JAIMEE Referring Unavailable [facility] Unavailable ONGER, JAIMEE Referring Unavailable [facility] Primary Care Unavailable BENDARAM, GLORY CALVO Referring Unavaila ble BENDARAM, GLORY CALVO Attending Unavaila ble [facility] Primary Care Unavailable SELF Referring Unavailable ONGER, JAIMEE Referring Unavailable [facility] Primary Care Unavailable RIO SANCHEZ Attending Unavailable AYSHA ROGER Referring Unavailable [facility] Primary Care Unavailable RIO SANCHEZ Attending Unavailable RIO SANCHEZ Referring Unavailable [facility] Primary Care Unavailable LISSETTE MCLEOD Referring Unavailable [facility] Primary Care Unavailable [facility] Primary Care Unavailable ILSSETTE MCLEOD Attending Unavailable [facility] Primary Care Unavailable PRADEEP TAYLOR Referring Unavailable [facility] Unavailable HARVEYOHAN, RISAL S Attending Unavailable ONGER, JAIMEE Attending Unavailable TAYLOR, PRADEEP Referring Unavailable [facility] Unavailable [facility] Unavailable ARIAN, CRISSY Y Referring Unavailable [facility] Unavailable ARIAN, CRISSY Y Attending Unavailable [facility] Unavailable RADHA KAMARA Referring Unavailable ONGER, JAIMEE Referring Unavailable [facility] Unavailable [facility] Unavailable OLGA NIEVES Attending Unavailable [facility] Unavailable OLGA NIEVES Attending Unavailable [facility] Unavailable KARY RIZZO Attending Unavailable ONGERJAIMEE Attending Unavailable [facility] Unavailable [facility] Unavailable OLGA NIEVES Attending Unavailable [facility] Unavailable OLGA NIEVES Attending Unavailable SELF Referring Unavailable PRADEEP TAYLOR Referring Unavailable [facility] Unavailable NNAMDI FAIRBANKS Attending Unavailable [facility] Unavailable HARVEYOHAN, RISAL S Attending Unavailable [facility] Referring Unavailable [facility] Unavailable AYSHA ROGER Attending Unavailable [facility] Unavailable OLGA NIEVES Attending Unavailable [facility] Unavailable SHELLY SHERIDAN Attending Unavailable DJOHAN, RISAL S Referring Unavailable [facility] Unavailable PRADEEP TAYLOR Admitting Unavailable PRADEEP TAYLOR Attending Unavailable [facility] Unavailable TAYLORPRADEEP Admitting Unavailable TAYLOR, PRADEEP Attending Unavailable [facility] Unavailable [facility] Primary Care Unavailable Allergies Allergy Classification Reported Allergen(s) Allergy Type Date of Onset Reaction(s) Facility Penicillins (antibiotic) (1 source) Penicillins Drug Allergy 7 Anaphylaxis [facility] (6 sources) penicillin g drug allergy 6 Swelling of throat [facility] [employer] Work Phone: (19 sources) Penicillins; Translations: [PENICILLINS] Allergy to substance 7 Anaphylaxis [facility] (1 source) Penicillin Drug Allergy [facility] (20 sources) Penicillins Propensity to adverse reactions 7 Swelling, Anaphylaxis [facility] Work Phone: (20 sources) Penicillins Drug Allergy 7 Anaphylaxis [facility] (1 source) Penicillins Drug allergy (disorder) [facility] Medications Current Medications Medication Drug Class(es) [...] 06/16/2024 4:01 PM EDT 06/16/2024 07/01/2024 Active cefadroxil 500 mg oral capsule (20 sources) Cephalosporin Antibacterial Start: 06-16-2024 End: 06-30-2024 take 1 capsule by mouth twice daily in the evening cefADROxil (DURICEF) 500 mg capsule Take 1 capsule by mouth two times a day for 14 days. 28 capsule 06/16/2024 4:01 PM EDT 06/16/2024 06/30/2024 Active End: 10-01-2024 take 2 capsules by mouth once daily cefADROxil (DURICEF) 500 mg capsule Take 500 mg by mouth two times a day. 7 days. As of today, she has 2 more days to go 10/01/2024 Discontinued (Course of therapy completed) eletriptan 40 mg oral tablet (20 sources) Serotonin-1b and Serotonin-1d Receptor Agonist Start: 08-05-2024 take 1 tablet by mouth once daily Eletriptan 40 mg tablet Active 40 mg PO DAILY August 05, 2024 12:00am Start: 07-27-2024 End: 10-31-2024 take 1 tablet by mouth every two hours as needed for headache eletriptan (RELPAX) 40 mg tablet Indications: 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 and with status migrainosus Take 1 tablet by mouth as needed for migraine headache (see administration instructions). May repeat dose after 2 hours if needed. Maximum daily dose is 80 mg per day. 12 tablet 1 10/01/2024 10/31/2024 Active Start: 11-28-2023 End: 07-24-2024 eletriptan (RELPAX) 40 mg ta blet Indications: 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 and with status migrainosus TAKE 1 TABLET NEEDED FOR MIGRAINE HEADACHE (SEE ADMINISTRATION INSTRUCTIONS) AT THE ONSET OF MIGRAINE HEADACHE (1 IN 24 HOURS) 12 tablet 19 12/30/2023 07/24/2024 Discontinued Start: 05-15-2023 End: 12-25-2023 take 1 tablet [...] hours). at the onset of migraine headache. FLUoxetine 40 mg oral capsule (20 sources) Serotonin Reuptake Inhibitor Start: take 1 capsule by mouth once daily Fluoxetine (Prozac) 10 mg capsule Active 10 mg PO daily June 04, 2024 12:00am Start: 11-26-2023 End: 05-31-2024 take 1 tablet by mouth once daily Fluoxetine 20 mg tablet Discontinued 20 mg PO DAILY November 26, 2023 11:25am November 26, 2023 11:59am Start: 11-26-2023 End: 06-08-2024 take 1 capsule by mouth once daily Fluoxetine (Prozac) 40 mg capsule Active 40 mg PO DAILY June 08, 2024 8:09am Start: 04-02-2020 End: 11-26-2023 take 2 tablets by mouth once daily Fluoxetine 20 mg tablet Discontinued 40 mg PO DAILY November 26, 2023 11:58am November 26, 2023 12:02pm Start: 04-02-2020 take 40 mg by mouth once daily Fluoxetine Active 40 MG PO DAILY April 02, 2020 1:00am FLUoxetine (PROZ AC) 40 mg capsule Take 50 mg by mouth once daily. Active Comment on above: Take 20 mg by mouth once daily. glycerin-min oil-polycarbophil (REPLENS) gel (6 sources) Start: End: glycerin-min oil-polycarbophil (REPLENS) gel Indications: Vaginal dryness Use 1 application vaginally every 3 days in the morning. 42.5 g 3 10/11/2024 10/11/2025 Active iv contrast (will be provided with radiology test) (20 sources) Start: End: 5 inject 1 dose intravenously once iv contrast (will be provided with radiology test) Indications: Headaches , Nausea , Dizziness CT Brain WO/W - No IV access, insert saline lock prior to the sedation, infusion, injection for imaging exam. Discontinue saline lock post exam. If Pt. has a central line or IVAD, may access for administration according to line specific nursing protocol. Once exam is complete flush line and de-access according to line specific nursing protocol in the CT contrast administration guidelines link. 1 each 08/23/2024 08/24/2024 Active Start: 08-20-2024 End: 08-21-2024 inject 1 dose intravenously once iv contrast (will be provided with radiology test) Indications: Headaches , Nausea , Dizziness MRI Brain Inject, intravenously, once for 1 dose.No IV access, insert saline lock prior to beginning of sedation, infusion, injection of imaging exam.Discontinue saline lock post exam. If Pt. has a central line or IVAD, may access for administration according to line specific nursing protocol.Once exam is complete flush line and de-access according to line specific nursing protocol in the MR contrast administration guidelines link 1 each 08/20/2024 08/21/2024 Active Start: 08-19-2024 inject 1 dose intravenously on ce iv contrast (will be provided with radiology test) CTA PELVIS.No IV access, insert saline lock prior to the sedation, infusion, injection for imaging exam. Discontinue saline lock post exam. If Pt. has a central line or IVAD, may access for administration according to line specific nursing protocol. Once exam is complete flush line and de-access according to line specific nursing protocol in the CT contrast administration guidelines link. 1 each 08/19/2024 Active Start: 05-10-2024 End: 05-11-2024 iv contrast (will be provide d with radiology test) Indications: Abnormal finding on [...] guidelines link 1 Each 05/10/2024 05/11/2024 Active Leuprolide (9 sources) Gonadotropin Releasing Hormone Receptor Agonist leuprolide acetate (LUPRON SUBCUTANEOUS) Inject subcutaneously every 3 months. Active levothyroxine sodium 0.1 mg oral tablet (20 sources) l-Thyroxine Start: 04-19-19 take 1 tablet by mouth once daily Levothyroxine 100 mcg tablet Active 100 ug PO DAILY April 19, 2024 1:00am Start: 03-08-2024 End: 04-19-2024 take 1 capsule by mouth once daily Levothyroxine 50 mcg capsule Discontinued 50 ug PO daily March 08, 2024 1:00am April 19, 2024 12:11pm Start: 08-31-2023 End: 10-04-2024 levothyroxine (SYNTHROID) 10 0 mcg tablet Indications: Hypothyroidism, acquired TAKE 1 TABLET BY MOUTH 5 DAYS OF THE WEEK, SKIP ON 2 DAYS OF THE WEEK (MAY BE FRIDAY AND FRIDAY) 65 tablet 1 10/04/2024 Active losartan potassium 25 mg oral tablet (10 sources) Angiotensin 2 Receptor Kathleen Start: 09-28-2024 End: 12-27-2024 take 1 tablet by mouth once daily losartan (COZAAR) 25 mg tablet Indications: Hypertension, essential Take 1 tablet by mouth once daily. 30 tablet 2 09/28/2024 12/27/2024 Active Magnesium (20 sources) Magnesium 200 mg tab Take by mouth. Active Magnesium 200 mg tab Take by mouth. 0 Active ondansetron 4 mg oral tablet (5 sources) Serotonin-3 Receptor Antagonist Start: 08-05-2024 take 1 tablet by mouth every eight hours as needed for nausea Ondansetron Hcl 4 mg tablet Active 4 mg PO EVERY 8 HOURS NEEDED as needed for nausea/vomiting Dorothy 12th, 2025 12:00am Start: 06-24-2024 End: 06-29-2024 take 1 tablet by mouth every eight hours as needed ondansetron (ZOFRAN) 4 mg tablet Take 1 tablet by mouth every 8 hours as needed for nausea/vomiting for up to 5 days. 15 tablet 06/24/2024 06/29/2024 Active Start: 12-09-2020 End: 08-23-2022 take 1 tablet by mouth every eight hours as needed for nausea and vomiting Ondansetron 4 mg tablet,disintegrating Discontinued 4 mg PO Q8H as needed for nausea and vomiting December 09, 2020 12:00am August 23, 2022 [...] 7 days. 21 tablet 06/24/2024 07/01/2024 Active Semaglutide (Weight Loss) (1 source) Start: 11-26-2023 Semaglutide (W eight Loss) 1 mg/0.5 mL pen injector Active 1 mg SC Q7D November 26, 2023 12:00am sennosides, longterm 8.6 mg oral tablet (7 sources) Start: 06-16-2024 End: 07-01-2024 take 1 tablet by mouth every twelve hours as needed senna (SENOKOT) 8.6 mg tab Take 1 tablet by mouth two times a day as needed for constipation for up to 15 days. 30 tablet 06/16/2024 4:01 PM EDT 06/16/2024 07/01/2024 Active Completed/Discontinued Medications Medication Drug Class(es) Dates Sig (Normalized) Sig (Original) [id number] 200 actuat albuterol 0.09 mg/actuat metered dose inhaler (2 sources) beta2-Adrenergic Agonist Start: 04-19-2024 End: 08-05-2024 Albuterol Sulfate (Ventolin Hfa) 90 mcg/actuation HFA aerosol inhaler Discontinued 2 NMA INHALATION EVERY 4 HOURS NEEDED as needed for Wheezing April 19, 2024 1:00am August 05, 2024 6:15am with spacer Start: 09-07-2022 End: 11-26-2023 Albuterol Sulfate 90 mcg/act uation HFA aerosol inhaler Discontinued 2 NMA INHALATION EVERY 6 HOURS as needed for shortness of breath or wheezing 6.7 September 07, 2022 12:00am November 26, 2023 11:24am anastrozole 1 mg oral tablet (20 sources) Aromatase Inhibitor Start: 07-14-2024 End: 10-12-2024 take 1 tablet by mouth once daily anastrozole (ARIMIDEX) 1 mg tablet Indications: Malignant neoplasm of breast, stage 1, estrogen receptor positive, unspecified laterality (HCC) Take 1 tablet by mouth once daily. Patient should start on July 14, 2024. 30 tablet 2 07/14/2024 08/20/2024 Discontinued ascorbic acid 1000 mg oral tablet (3 sources) Vitamin C Start: 09-10-2016 take 1 tablet by mouth once daily VITAMIN C 1000 MG TABS One tablet by mouth daily ASCORBIC ACID [id number] Josephine Meadows atogepant (QULIPTA) 60 mg tablet (20 sources) Start: 11-28-2023 End: 05-31-2024 take 1 tablet by mouth once daily atogepant (QULIPTA) 60 mg tablet Indications: 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 and with status migrainosus Take 1 tablet (60 mg) by mouth once daily. 30 tablet 11/28/2023 05/31/2024 Discontinued (Cost of medication) Start: 11-28-2023 take 1 tablet by [facility] once daily atogepant (QULIPTA) 60 mg tablet Indications: 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 and with status migrainosus Take 1 tablet (60 mg) by mouth once daily. 30 tablet 11/28/2023 Active azithromycin 250 mg oral tablet (5 sources) Macrolide Antimicrobial Start: 09-07-2022 End: 02-28-2023 Azithromycin 250 mg tablet Discontinued 0 PO .COMPLEX 6 September 07, 2022 12:00am February 28, 2023 5:17pm For 250 mg dose pack: take 500 mg today (day 1), then 250 mg for 4 days (days 2-5) PO Start: 03-06-2021 End: 08-23-2022 take 2-5 tablets by mouth once daily Azithromycin 250 mg tablet Discontinued 0 PO .COMPLEX March 11, 2022 12:02pm August 23, 2022 8:27am take 500 mg today (day 1), then 250 mg for 4 days (days 2-5) PO benzonatate 100 mg oral capsule (1 source) Non-narcotic Antitussive Start: 04-16-2024 End: 04-19-2024 take 2 capsules by mouth three times daily as needed for cough Benzonatate 100 mg capsule Discontinued 200 mg PO THREE TIMES A DAY as needed for cough April 16, 2024 1:00am April 19, 2024 12:11pm 30 ml bupivacaine hydrochloride 2.5 mg/ml injection [...] 2 tablets by mouth daily CEFUROXIME AXETIL [id number] Kimberly Kumari PA-C cephalexin 500 mg oral capsule (2 sources) Cephalosporin Antibacterial Start: 11-24-2020 End: 12-04-2020 take 1 capsule by mouth every twelve hours Cephalexin 500 mg capsule Discontinued 500 mg PO Q12H 20 November 24, 2020 12:00am December 03, 2020 12:00am December 04, 2020 12:01am cholecalciferol 0.125 mg oral tablet (20 sources) Vitamin D Start: 07-03-2015 End: 10-01-2024 cholecalciferol (VITAMIN D3) 5,000 unit tab Take by mouth. 07/03/2015 10/01/2024 Discontinued (Course of therapy completed) Start: 07-03-2015 take 1 tablet by susan once daily VITAMIN D3 5000 UNIT TABS 1 tablet by mouth daily CHOLECALCIFEROL [id number] Kimberly Kumari PA-C End: 09-16-2023 take 1 tablet by mouth once daily cholecalciferol (VITAMIN D) 1,000 unit tab Take 1,000 Units by mouth once daily. 0 09/16/2023 Discontinued Comment on above: Take 1,000 Units by mouth once daily. doxycycline monohydrate 100 mg oral capsule (6 sources) Tetracycline-cla ss Drug Start: 04-19-2024 End: 07-16-2024 take 1 capsule by mouth twice daily Doxycycline Monohydrate 100 mg capsule Discontinued 100 mg PO TWICE A DAY April 19, 2024 1:00am July 16, 2024 11:49am Start: 11-15-2022 End: 11-25-2022 take 1 capsule by mouth twice daily Doxycycline Hyclate 100 mg capsule Discontinued 100 mg PO TWICE A DAY 13 12November 15, 2022 12:00am November 24, 2022 12:00am November 25, 2022 12:04am End: 07-22-2023 take 1 capsule by mouth once daily Doxycycline Monohydrate (ORACEA) 40 mg capsule Take 40 mg by mouth once daily. 0 07/22/2023 Discontinued (Course of therapy completed) Comment on above: Take 40 mg by mouth once daily. drospirenone / Ethinyl Estradiol (13 sources) Progestin, Estrogen Start: 09-10-2016 End: 08-18-2023 Drospirenone-Ethinyl Estradiol (SUNDAR, 28,) 3-0.02 mg per tablet every 24 hours. 0 09/10/2016 08/18/2023 Discontinued Start: 09-10-2016 Drospirenone-E thinyl Estradiol (SUNDAR, 28,) 3-0.02 mg per tablet every 24 hours. 0 09/10/2016 Active Start: 09-10-2016 take 1 tablet by susan once daily SUNDAR 3-0.02 MG TABS One tablet by mouth daily DROSPIRENONE-ETHINYL ESTRADIOL [id number] Josephine Meadows Comment on above: every 24 [...] 0828, Until Joy 05/20/24 at 0828, Intraprocedure famotidine 20 mg oral tablet (2 sources) Histamine-2 Receptor Antagonist Start: 12-09-2020 End: 11-26-2023 take 1 tablet by mouth once daily before mealtime Famotidine (Pepcid Ac) 20 mg tablet Discontinued 20 mg PO DAILY December 09, 2020 12:00am November 26, 2023 11:24am fluconazole 150 mg oral tablet (6 sources) Azole Antifungal Start: 07-28-2015 End: 07-31-2015 FLUCONAZOLE 150 MG TABS One tablet x June repeat in 3 days if needed FLUCONAZOLE [id number] Nahum Stephens [facility] goserelin 10.8 mg drug implant (2 sources) Gonadotropin Releasing Hormone Receptor Agonist Start: 10-11-2024 End: 10-11-2024 inject 1 dose by subcutaneous injection once 10.8 mg, SUBCUTANEOUS, ONCE, 1 dose, On Fri10/11/24 at 1530, Hazardous Chemotherapy Drug: Use appropriate PPE. Start: 07-20-2024 End: 07-20-2024 inject 1 dose [...] CAPS 1 capsule by mouth daily LORATADINE [id number] Kimberly Kumari PA-C Start: 07-03-2015 take 1 capsule by mo uth once daily CLARITIN 10 MG CAPS 1 capsule by mouth daily LORATADINE [id number] Kimberly Kumari PA-C medroxyPROGESTERone acetate 10 mg oral tablet (4 sources) Progestin Start: 09-30-2019 End: 07-22-2023 take 1 tablet by mouth once daily medroxyPROGESTERone (PROVERA) 10 mg tablet Take 1 tablet by mouth once daily. 10 tablet 1 09/30/2019 07/22/2023 Discontinued (Course of therapy completed) Comment on above: Take 1 tablet by susan th once daily. metFORMIN hydrochloride 500 mg oral tablet (12 sources) Biguanide Start: 08-23-2022 End: 11-26-2023 take 1 tablet by mouth twice daily Metformin 500 mg tablet Discontinued 500 mg PO TWICE A DAY August 23, 2022 12:00am November 26, 2023 11:25am Start: 07-03-2015 take 1 tablet by susan th twice daily METFORMIN HCL ER (OSM) 500 MG [id number] One tablet by mouth twice daily METFORMIN HCL [id number] Leonard Kumari PA-C Start: 05-02-2014 End: 07-22-2023 take 1 tablet by mouth twice daily at mealtime metFORMIN 500 mg 24 hr tablet Indications: Polycystic ovarian disease , Obesity , Impaired glucose tolerance Take 500 mg by mouth twice daily with meals. 60 tablet 3 05/02/2014 07/22/2023 Discontinued (Discontinued by Patient) Comment on above: Take 500 mg by mouth twice daily with meals. methylPREDNISolone 4 mg oral tablet (1 source) Corticosteroid Start: 2022 End: 2022 take 1 tablet by mouth once Methylprednisolone (Medrol (Glynn)) 4 mg tablets,dose pack Discontinued 4 mg PO per package directions 14 08November 15, 2022 12:00am November 20, 2022 12:00am November 21, 2022 12:04am norethindrone 0.35 mg oral tablet (9 sources) Start: 2022 End: 2023 take 1 tablet by mouth once daily Norethindrone (Contraceptive) 0.35 mg tablet Discontinued 0.35 mg PO DAILY April 21, 2023 9:58am November 26, 2023 11:25am phenazopyridine hydrochloride 100 mg oral tablet (4 sources) Start: 2019 End: 2023 take 1 tablet by mouth three times daily as needed phenazopyridine (PYRIDIUM) 100 mg tablet Indications: Burning with urination Take 1 tablet by mouth three times daily as needed. 9 tablet 0 03/15/2019 07/22/2023 Discontinued (Discontinued by Patient) Comment on above: Take 1 tablet by susan th three times daily as needed. Vit 24-Dvhl-Fnvhw-Dha ( + Dha) 28 mg iron- 975 mcg-200 mg Combo Pack (2 sources) Start: 2020 End: 2022 Vit 17-Fpyl-Oyawv-Dha ( + Dha) 28 mg iron- 975 mcg-200 mg Combo Pack Discontinued 1 NMA PO DAILY November 05, 2020 12:00am August 23, 2022 8:27am Start: 11-05-2020 End: 08-23-2022 Vit 62-Ocux-Uumdh-D bradford ( + Dha) 28 mg iron- 975 mcg-200 mg Combo Pack Discontinued 1 PKG PO DAILY November 05, 2020 12:00am August 23, 2022 8:27am rizatriptan 10 mg disintegrating oral tablet (1 source) Serotonin-1b and Serotonin-1d Receptor Agonist Start: 04-22-2023 End: 05-15-2023 rizatriptan (MAXALT GRANULIZING MACHINE OPERATOR) 10 mg disintegrating tablet SEMAGLUTIDE, WEIGHT LOSS, SUBCUTANEOUS (20 sources) End: 10-01-2024 inject 70 [IU] by subcutaneous injection every week SEMAGLUTIDE, WEIGHT LOSS, SUBCUTANEOUS Inject 70 Units subcutaneously one time a week. 10/01/2024 Discontinued (Discontinued by Patient) inject 70 [IU] by gipson bcutaneous injection every week SEMAGLUTIDE, WEIGHT LOSS, SUBCUTANEOUS Inject 70 Units subcutaneously one time a week. Active inject 70 [IU] by gipson bcutaneous injection every week SEMAGLUTIDE, WEIGHT LOSS, SUBCUTANEOUS Inject 70 Units subcutaneously one time a week. 0 Active spironolactone 50 mg oral tablet (20 sources) Aldosterone Antagonist Start: 03-11-2023 End: 10-01-2024 spironolactone (ALDACTONE) 50 mg tablet 03/11/2023 10/01/2024 Discontinued (Discontinued by Patient) Start: 08-23-2022 Spironolactone Active 50 MG PO August 23, 2022 8:28am Start: 03-11-2022 End: 08-23-2022 take 2 tablets by mouth once daily Spironolactone 25 mg tablet Active 50 mg PO DAILY August 23, 2022 8:28am Start: 03-11-2022 End: 08-23-2022 Spironolactone 25 mg tablet Discontinued NMA PO March 11, 2022 1:00am August 23, 2022 8:28am sulfacetamide sodium 100 mg/ml / sulfur 40 mg/ml medicated pad (4 sources) Sulfonamide Antibacterial End: 07-22-2023 Sulfacetamide Sodium-Sulfur 10-4 % padm Apply 1 application to affected area twice daily. 0 07/22/2023 Discontinued (Discontinued by Patient) Comment on above: Apply 1 application to affected area twice daily. sulfamethoxazole 800 mg / trimethoprim 160 mg oral tablet (2 sources) Dihydrofolate Reductase Inhibitor Antibacterial, Sulfonamide Antimicrobial Start: 07-16-2024 End: 07-23-2024 Sulfamethoxazole-Tri methoprim (Bactrim Ds) 800-160 mg tablet Discontinued 1 {tbl} PO Q12H 14 7 July 16, 2024 12:00am July 22, 2024 12:00am July 23, 2024 12:09am Start: 02-10-2023 End: 02-28-2023 Sulfamethoxazole-Trimethopri m (Bactrim Ds) 800-160 mg tablet Discontinued 1 {tbl} PO Q12H February 10, 2023 1:00am February 28, 2023 5:17pm SUMAtriptan 100 mg oral tablet (6 sources) Serotonin-1b and Serotonin-1d Receptor Agonist Start: 09-09-2016 IMITREX 100 MG TABS One tablet by mouth daily as needed: june repeat X 1 in 24 hours if h/s persista after 2 hours SUMATRIPTAN SUCCINATE [id number] Jessi Cortés RN thyroid (longterm) 30 mg oral tablet (11 sources) Start: 03-11-2022 End: 03-08-2024 Thyroid (Pork) (Hand Candy Dipper Thyroid) 30 mg tablet Discontinued NMA PO March 11, 2022 1:00am March 08, 2024 2:37pm End: 08-31-2023 take 1 tablet by mouth once daily 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 Also takes additional 30 mg equaling (60 mg) Fri 0 08/31/2023 Discontinued topiramate 50 mg oral tablet (11 sources) [...] tablet by mouth daily B COMPLEX VITAMINS [id number] Josephine [place] VITAMIN B COMPLEX-100 ORAL (20 [...] Problem Classification Problem Date Documented Date Episodic/Chronic Abdominal pain (1 source) Acute pain in female pelvis; Translations: [Pelvic and perineal pain] 11-26-2023 Episodic Comment on above: US ordered Acute bronchitis (3 sources) Acute bronchitis; Translations: [Acute bronchitis, unspecified] 03-11-2022 Episodic Administrative/social admission (5 sources) Patient encounter status; Translations: [Persons encountering health services in other specified circumstances] 07-22-2023 Episodic Anxiety disorders (20 sources) Anxiety; Translations: [Anxiety disorder, unspecified] Onset: 06-15-2024 06-15-2024 Chronic Cancer of breast (20 sources) Intraductal carcinoma in situ of right breast; Translations: [Intraductal carcinoma in situ of right breast] Onset: 06-01-2024 05-31-2024 Chronic Comment on above: plans double mastect [facility] at [facility] main campus 06/16/24. Cancer of breast (4 sources) History of malignant neoplasm of breast; Translations: [Personal history of malignant neoplasm of breast] Onset: 08-19-2024 05-31-2024 Episodic Cardiac dysrhythmias (7 sources) Palpitations; Translations: [Palpitations] Onset: 09-09-2016 09-09-2016 Episodic Conditions associated with dizziness or vertigo (4 sources) Dizziness; Translations: [Dizziness and giddiness] Onset: 08-20-2024 08-20-2024 Episodic Essential hypertension (14 sources) Essential (primary) hypertension; Translations: [Essential hypertension] Onset: 08-21-2024 09-28-2024 Chronic Gastritis and duodenitis (2 sources) Gastritis; Translations: [Gastritis, unspecified, without bleeding] 12-17-2020 Episodic Headache; including migraine (20 sources) Migraine with aura; Translations: [Migraine with aura, not intractable, without status migrainosus] Onset: 12-16-2023 08-23-2022 Chronic Headache; including migraine (7 sources) Disorder of scalp; Translations: [Scalp pain] Onset: 08-30-2024 07-23-2023 Episodic Headache; including migraine (1 source) Headache; including migraine; Translations: [Headache, unspecified] Onset: 08-10-2024 Hemorrhage during ; abruptio placenta; placenta previa (2 sources) Bleeding from female genital tract during ; Translations: [Antepartum hemorrhage, unspecified, unspecified trimester] 2020 Episodic Immunizations and screening for infectious disease (8 sources) Contact with and (suspected) exposure to other viral communicable diseases; Translations: [Contact with or suspected exposure to other viral communicable disease] Onset: 04-16-2024 06-04-2024 Episodic Malaise and fatigue (20 sources) Fatigue; Translations: [Chronic fatigue, unspecified] Onset: 07-23-2023 07-22-2023 Chronic Mood disorders (2 sources) Bipolar I disorder; Translations: [Bipolar disorder, unspecified] Onset: 06-15-2024 06-15-2024 Chronic Nausea and vomiting (7 sources) Nausea; Translations: [Nausea] Onset: 08-20-2024 12-17-2020 Episodic Nonmalignant breast conditions (8 sources) Fibrocystic changes of bilateral breasts; Translations: [Diffuse cystic mastopathy of right breast] Onset: 05-10-2024 05-10-2024 Chronic Nonmalignant breast conditions (20 sources) Discharge from nipple; Translations: [Pain of breast] Onset: 04-26-2024 05-10-2024 Episodic Nonspecific chest pain (1 source) Other chest pain; Translations: [Chest tightness] Onset: 08-21-2024 Episodic Other aftercare (2 sources) H/O: malignant neoplasm; Translations: [Encounter for follow-up examination after completed treatment for malignant neoplasm] 06-23-2024 Episodic Other connective tissue disease (1 source) Muscle pain; Translations: [Myalgia, unspecified site] 07-22-2023 Episodic Other endocrine disorders (6 sources) Polycystic ovaries; Translations: [Polycystic ovarian syndrome] Onset: 07-03-2015 07-03-2015 Chronic Other endocrine disorders (20 sources) Polycystic ovary syndrome; Translations: [Polycystic ovarian syndrome] Onset: 05-10-2009 08-23-2022 Chronic Other endocrine disorders (3 sources) Polycystic ovarian syndrome; Translations: [Polycystic ovaries] Onset: 05-10-2009 08-23-2022 Chronic Other female genital disorders (4 sources) Abnormal uterine bleeding; Translations: [Abnormal uterine and vaginal bleeding, unspecified] 11-26-2023 Chronic Comment on above: US ordered, labs. cb c tsh normal at [facility] in september Other female genital disorders (2 sources) Abnormal uterine and vaginal bleeding, unspecified; Translations: [Abnormal uterine and vaginal bleeding, unspecified] Onset: 12-27-2023 Chronic Other female genital disorders (1 source) Labial cyst; Translations: [Vulvar cyst] 02-10-2023 Episodic Other female genital disorders (1 source) Vulval irritation; Translations: [Other specified noninflammatory disorders of vulva and perineum] 02-28-2023 Episodic Comment on above: 0.5cm soft nodule. m ost likely due to shaving. no redness. no lymphedema-tyelnol and motrin atc-warm compress tid for the next week-s/p Bactrim BIDx7 days without resolution, slight improved in consistency, slightly less firm.- plan on ultrasound and refer to physician for potential I&D. Other female genital disorders (1 source) Vaginal dryness; Translations: [Other specified noninflammatory disorders of vagina] 10-11-2024 Episodic Other female genital disorders (1 source) Other specified noninflammatory disorders of vagina; Translations: [Vaginal dryness] Onset: 10-11-2024 Episodic Other lower respiratory disease (1 source) Cough; Translations: [Cough] 04-27-2024 Episodic Other nervous system disorders (2 sources) Paresthesia; Translations: [Paresthesia of skin] 07-22-2023 Episodic Other nervous system disorders (2 sources) Postoperative pain ; Translations: [Other acute postprocedural pain] 06-24-2024 Episodic Other nervous system disorders (1 source) Reduced sensation of skin; Translations: [Hypoesthesia of skin] 08-19-2024 Episodic Other nervous system disorders (1 source) Hypoesthesia of skin; Translations: [Hypoesthesia of skin] Onset: 08-19-2024 Episodic Other non-traumatic joint disorders (8 sources) Decreased range of shoulder movement; Translations: [Stiffness of right shoulder, not elsewhere classified] 08-16-2024 Episodic Other non-traumatic joint disorders (1 source) Stiffness of right shoulder, not elsewhere classified; Translations: [Decreased range of motion of right shoulder] Onset: 09-06-2024 Episodic Other non-traumatic joint disorders (1 source) Stiffness of left shoulder, not elsewhere classified; Translations: [Decreased range of motion of left shoulder] Onset: 09-06-2024 Episodic Other screening for suspected conditions (not mental disorders or infectious disease) (6 sources) Radiology result abnormal; Translations: [Abnormal findings on diagnostic imaging of other specified body structures] Onset: 05-20-2024 05-20-2024 Chronic Otitis media and related conditions (2 sources) Acute left otitis media; Translations: [Otitis media, unspecified, left ear] 11-24-2020 Episodic Pneumonia (except that caused by tuberculosis or sexually transmitted disease) (1 source) Pneumonia; Translations: [Pneumonia, unspecified organism] 06-04-2024 Episodic Residual codes; unclassified (3 sources) Postoperative state; Translations: [Other specified postprocedural states] 06-24-2024 Episodic Residual codes; unclassified (4 sources) At risk of lymphedema; Translations: [Other specified personal risk factors, not elsewhere classified] 08-16-2024 Episodic Residual codes; unclassified (7 sources) History of breast reconstruction; Translations: [Other specified postprocedural states] 08-16-2024 Episodic Residual codes; unclassified (1 source) Family history of stroke; Translations: [Family history of stroke] 08-20-2024 Episodic Residual codes; unclassified (1 source) Other specified personal risk factors, not elsewhere classified; Translations: [At risk for lymphedema] Onset: 09-06-2024 Episodic Residual codes; unclassified (3 sources) Other specified postprocedural states; Translations: [S/P breast reconstruction] Onset: 07-20-2024 Episodic Residual codes; unclassified (1 source) Family history of stroke; Translations: [Family history of stroke] Onset: 08-20-2024 Episodic Residual codes; unclassified (1 source) Estrogen receptor positive status [ER+]; Translations: [Malignant neoplasm of breast, stage 1, estrogen receptor positive, unspecified laterality (HCC)] Onset: 08-19-2024 Episodic Residual codes; unclassified (1 source) Acquired absence of bilateral breasts and nipples; Translations: [History of bilateral mastectomy] Onset: 08-19-2024 Episodic Screening and history of mental health and substance abuse codes (1 source) Encounter for screening for depression; Translations: [Screening for depression] Onset: 10-01-2024 Episodic Thyroid disorders (20 sources) Hypothyroidism, unspecified; Translations: [Acquired hypothyroidism] Onset: 02-15-2024 05-28-2024 Chronic Unclassified (19 sources) Encounter for screening for lipoid disorders; Translations: [Abnormal findings on diagnostic imaging of breast] Onset: 07-03-2015 07-03-2015 Episodic Comment on above: referral [facility] for bio psy Unclassified (3 sources) Procedure carried out on subject; Translations: [Encounter for screening for lipoid disorders] Onset: 07-03-2015 07-03-2015 Unclassified (1 source) APPOINTMENT CANCELLED 09-17-2023 Unclassified (1 source) Cough, unspecified; Translations: [Cough, unspecified] Onset: 04-27-2024 Unclassified (1 source) OT Progress Note Onset: 09-27-2024 Unclassified (1 source) Headaches; Translations: [Headaches] Onset: 08-20-2024 Past or Other Problems Problem Classification Problem Date Documented Date Episodic/Chronic Other aftercare (1 source) Encounter for follow-up examination after completed treatment for malignant neoplasm; Translations: [Encounter for postoperative examination after surgery for malignant neoplasm] Onset: 06-23-2024 Episodic Other nervous system disorders (3 sources) Other acute postprocedural pain; Translations: [Postoperative pain] Onset: 06-16-2024 Episodic Other upper respiratory infections (14 sources) Acute upper respiratory infection; Translations: [Acute upper respiratory infection, unspecified] Onset: 01-07-2024 03-06-2021 Episodic Spondylosis; intervertebral disc disorders; other back problems (4 sources) Neck pain; Translations: [Cervicalgia] Onset: 10-13-2023 07-22-2023 Episodic Syncope (6 sources) Near syncope; Translations: [Syncope and collapse] Onset: 09-09-2016 09-09-2016 Episodic Unclassified (3 sources) Patient encounter status 06-01-2024 Results Test Name Value Interpretation Reference Range Facility CNOVon 10-21-2024 CNOV Normal [facility] CNTHERAPYon 10-18-2024 CNTHERAPY Normal [facility] THERAPY NTon 10-18-2024 THERAPY NT Normal [facility] HIV 1+2 Ab IA Qlon HIV 1 and 2 Ab IA.rapid Nom (S/P/Bld) [facility] Comment on above: Test not indicated. HIV 1+2 Ab+HIV1 p24 Ag IA Ql Non-Reactive Nonreactive [facility] HIV immunoassay testing algorithm interpretation (S/P/Bld) [Interp] [facility] Comment on above: No evidence of HIV-1 or HIV-2 infection. Should recent infection be suspected, repeat testing may be considered 2-3 weeks after this draw. [place] Rev. Code 3701.243(E): This information has been disclosed to you from confidential records protected from disclosure by state law. You shall make no further disclosure of this information without the specific, written, and informed release of the individual to whom it pertains or as otherwise permitted by state law. A general authorization for the release of medical or other information is not sufficient for the purpose of the release of HIV test results or diagnoses. [facility] CNOVSPon 10-11-2024 CNOVSP Normal [facility] Estradiol SerPl-mCncon 10-11 E2 [Mass/Vol] pg/mL Normal [facility] Comment on above: Order Comment: Speci men Type: BLOOD SPECIMENOrdering Facility: [facility] Address: [address] [place] [address] Result Comment: This test is not suitable for patients receiving treatment with the drug Fulvestrant (Faslodex). The drug causes an interference leading to falsely elevated estradiol results.Menstrual cycle Estradiol reference ranges:Follicular : < 234 pg/mLOvulation : 41 to 398 pg/mLLuteal : < 342 pg/mLPregnancy Estradiol reference ranges vary by gestational period:First trimester : 154 to 3243 pg/mLSecond trimester : 1561 to 67589 pg/mLThird trimester : 8285 to >33388 pg/mLPost-menopausal Estradiol reference range: < 41 pg/mLReference: 1. Estradiol - E2 (Estradiol III) [package insert V 3.0 Australian]. [facility], [place], [place], July 2015. Performed By: #### 1 5067-2, 2243-4 ####[facility] LABCLIA [id number] [address] [place]#### [address]80-2 ####[facility] LABCLIA [id number] [address] STATES OF [facility] [id number] [place] [address] [place] [facility] SerPl-aCncon 10-11-2024 Follitropin Qn 5.8 m[IU]/mL Normal See comment [facility] Comment on above: Order Comment: Speci men Type: BLOOD SPECIMENOrdering Facility: [facility] Address: [address] [place] [address] Result Comment: Refe rence range: Follicular: 3.5-12.5 mIU/mL Ovulation: 4.7-21.5 mIU/mL Luteal: 1.7-7.7 mIU/mL Postmenopausal: 25.8-134.8 mIU/mL Performed By: #### 1 5067-2, 2243-4 ####[facility] LABCLIA [id number] [address] [place]#### 28944-9 ####[facility] LABCLIA [id number] [place] [address] [place] [facility] [id number] [place] [address] [place] HCV Ab Ql (S)on 10-11-2024 Interpretation and review of laboratory results Normal [facility] HCV Ab Ser Qlon 10-11-2024 HCV Ab Ql (S) Negative Normal Negative [facility] Comment on above: Order Comment: Speci men Type: BLOOD SPECIMENOrdering Facility: [facility] Address: [address] [place] [address] Result Comment: The result suggests no evidence of infection with Hepatitis C virus. Should recent infection be suspected, repeat testing may be considered 4-6 weeks after this draw. Performed By: #### 1 6128-1 ####[facility] LABCLIA [id number] [address] [place] HEPATITIS C ANTIBODY IA WITH CONFIRMATIONon 10-11-2024 HCV Ab Ql (S) Negative Negative [facility] Comment on above: The result suggests no evidence of infection with Hepatitis C virus. Should recent infection be suspected, repeat testing may be considered 4-6 weeks after this draw. HIV 1+2 Ab IA Qlon 5 HIV 1 and 2 Ab IA.rapid Nom (S/P/Bld) Normal [facility] Comment on above: Order Comment: Speci men Type: BLOOD SPECIMENOrdering Facility: [facility] Address: [address] [place] [address] Result Comment: Test not indicated. Performed By: #### 3 1201-7 ####[facility] LABCLIA [id number] [address] [place] HIV 1+2 Ab+HIV1 p24 Ag IA Ql Non-Reactive Normal Nonreactive [facility] Comment on above: Order Comment: Speci men Type: BLOOD SPECIMENOrdering Facility: [facility] Address: [address] [place] [address] Performed By: #### 3 1201-7 ####[facility] LABIA [id number] [address] [place] HIV immunoassay testing algorithm interpretation (S/P/Bld) [Interp] Normal [facility] Comment on above: Order Comment: Speci men Type: BLOOD SPECIMENOrdering Facility: [facility] Address: [address] [place] [address] Result Comment: No e vidence of HIV-1 or HIV-2 infection. Should recent infection be suspected, repeat testing may be considered 2-3 weeks after this draw.[place] Rev. Code 3701.243(E): This information has been disclosed to you from confidential records protected from disclosure by state law. You shall make no further disclosure of this information without the specific, written, and informed release of the individual to whom it pertains or as otherwise permitted by state law. A general authorization for the release of medical or other information is not sufficient for the purpose of the release of HIV test results or diagnoses. Performed By: #### 3 1201-7 ####[facility] LABIA [id number] [address] [place] Lipid 1996 panelon 5 Cholesterol [Mass/Vol] 216 mg/dL High NINF - 200 mg/dL [facility] Comment on above: <200 mg/dL, Desirabl e 200-239 mg/dL, Borderline high >239 mg/dL, High Cholesterol in HDL [Mass/Vol] 58 mg/dL 39 - PINF mg/dL [facility] Comment on above: 40-59 mg/dL, Accepta ble >59 mg/dL, High: Negative risk factor for coronary heart disease <40 mg/dL, Low: Positive risk factor for coronary heart disease Cholesterol in LDL [Mass/Vol] 142 mg/dL High NINF - 100 mg/dL [facility] Comment on above: <100 mg/dL, Optimal 100-129 mg/dL, Near optimal/above optimal 130-159 mg/dL, Borderline high 160-189 mg/dL, High >189 mg/dL, Very high Secondary prevention optimal LDL Cholesterol levels are recommended to be <70 mg/dL LDL cholesterol is calculated using the Ro-NIH equation. Cholesterol in LDL/Cholesterol in HDL [Mass ratio] 2.45 {ratio} NINF - 2.54 [facility] Comment on above: Reference: 1. National Cholesterol Education Program ATP III Guideline At-A-Glance Quick Desk Reference: National Heart, Lung, and Blood [place]. National Institutes of Health. 2001: NIH Publication No. 01-3305. 2. An International Atherosclerosis Society position paper: global recommendations for the management of dyslipidemia: executive summary, Atherosclerosis. 2014: 232(2):410-413. Cholesterol in VLDL [Mass/Vol] 16 mg/dL NINF - 30 mg/dL [facility] Cholesterol non HDL [Mass/Vol] 158 mg/dL High NINF - 130 mg/dL [facility] Comment on above: <130 mg/dL, Optimal 130-159 mg/dL, Near optimal/above optimal 160-189 mg/dL, Borderline high 190-219 mg/dL, High >219 mg/dL, Very high Secondary prevention optimal non HDL Cholesterol levels are recommended to be <100 mg/dL Cholesterol.total/Chol esterol in HDL [Mass ratio] 3.72 {ratio} NINF - 5.10 [facility] Fasting Time 12 hrs [facility] Interpretation and review of laboratory results Abnormal [facility] Triglyceride [Mass/Vol] 91 mg/dL NINF - 150 mg/dL [facility] Comment on above: <150 mg/dL, Normal 150-199 mg/dL, Borderline high 200-499 mg/dL, High >499 mg/dL, Very high [facility] Cholesterol [Mass/Vol] 216 mg/dL High <200 Cl [facility] Comment on above: Order Comment: Speci men Type: BLOOD SPECIMENOrdering Facility: [facility] Address: [address] [place] [address] Result Comment: <200 mg/dL, Desirable 200-239 mg/dL, Borderline high>239 mg/dL, High Performed By: #### 1 5067-2, 2242- ####[facility] LABCLIA [id number] [place] [address] [place]#### 41382-1 ####[facility] LABCLIA [id number] [place] [address] [place] [facility] [id number] [address] [place] Cholesterol in HDL [Mass/Vol] 58 mg/dL Normal >39 [facility] Comment on above: Order Comment: Speci men Type: BLOOD SPECIMENOrdering Facility: [facility] Address: [address] [place] [address] Result Comment: 40-5 9 mg/dL, Acceptable>59 mg/dL, High: Negative risk factor for coronary heart disease<40 mg/dL, Low: Positive risk factor for coronary heart disease Performed By: #### 1 5067-2, 2242-05 ####[facility] LABCLIA [id number] [place] [address] [place]#### 28698-6 ####[facility] LABCLIA [id number] [address] STATES OF [facility] [id number] [place] [address] Cholesterol in LDL [Mass/Vol] 142 mg/dL High <100 [facility] Comment on above: Order Comment: Speci men Type: BLOOD SPECIMENOrdering Facility: [facility] Address: [address] [place] [address] Result Comment: <100 mg/dL, Optimal 100-129 mg/dL, Near optimal/above optimal 130-159 mg/dL, Borderline high 160-189 mg/dL, High>189 mg/dL, Very highSecondary prevention optimal LDL Cholesterol levels are recommended to be <70 mg/dLLDL cholesterol is calculated using the Ro-NIH equation. Performed By: #### 1 7-2, 2242-05 ####[facility] LABCLIA [id number] [address]#### [address]493-0 ####[facility] LABCLIA [id number] [address] STATES OF [facility] [id number] [address] [place] [facility] Cholesterol in LDL/Cholesterol in HDL [Mass ratio] 2.45 {ratio} Normal <2.54 [facility] Comment on above: Order Comment: Speci men Type: BLOOD SPECIMENOrdering Facility: [facility] Address: [address] [place] [address] Result Comment: Cory bynum:1. National Cholesterol Education Program ATP III Guideline At-A-Glance Quick Desk Reference: National Heart, Lung, and Blood [place]. National Institutes of Health. 2001: NIH Publication No. 01-3305.2. An International Atherosclerosis Society position paper: global recommendations for the management of dyslipidemia: executive summary, Atherosclerosis. 2014: 232(2):410-413. Performed By: #### 1 7-2, 2242- ####[facility] LABCLIA [id number] [address]#### [address]-8 ####[facility] LABCLIA [id number] [facility] [address], [facility] HOUSATONIC STATES [facility] [id number] [address] Cholesterol in VLDL [Mass/Vol] 16 mg/dL Normal <30 [facility] Comment on above: Order Comment: Speci men Type: BLOOD SPECIMENOrdering Facility: [facility] Address: [address] [place] [address] Performed By: #### 1 5067-2, 4 ####[facility] LABCLIA [id number] [place] [address] [place]#### 66184-7 ####[facility] LABCLIA [id number] [place] [address] [place] [facility] [id number] [place] [address] [place] Cholesterol non HDL [Mass/Vol] 158 mg/dL High <130 [facility] Comment on above: Order Comment: Speci men Type: BLOOD SPECIMENOrdering Facility: [facility] Address: [address] [place] [address] Result Comment: <130 mg/dL, Optimal 130-159 mg/dL, Near optimal/above optimal 160-189 mg/dL, Borderline high 190-219 mg/dL, High>219 mg/dL, Very highSecondary prevention optimal non HDL Cholesterol levels are recommended to be <100 mg/dL Performed By: #### 1 5067-2, 2242- ####[facility] LABCLIA [id number] [place] [address] [place]#### 82493-8 ####[facility] LABCLIA [id number] [address], [facility] [place] [facility] [id number] [place] [address] [place] Cholesterol.total/Chol esterol in HDL [Mass ratio] 3.72 {ratio} Normal <5.10 [facility] Comment on above: Order Comment: Speci men Type: BLOOD SPECIMENOrdering Facility: [facility] Address: [address] [place], [place] [address] Performed By: #### 1 5067-2, 2242-4 ####[facility] LABCLIA [id number] [address] [place] [address] [place]#### 65849-2 ####[facility] LABCLIA [id number] [address] [place] [address] [place] [facility] [id number] [place] [address] [place] FASTING TIME 12 hrs Normal [facility] Comment on above: Order Comment: Speci men Type: BLOOD SPECIMENOrdering Facility: [facility] Address: [address] [place], [place] [address] Performed By: #### 1 7-2, 2242-05 ####[facility] LABCLIA [id number] [address] [address] [place]#### 37011-4 ####[facility] LABCLIA [id number] [address] [place] [address] [place] [facility] [id number] [place] [address] [place] Triglyceride [Mass/Vol] 91 mg/dL Normal <150 [facility] Comment on above: Order Comment: Speci men Type: BLOOD SPECIMENOrdering Facility: [facility] Address: [facility] [place] [address] Result Comment: <150 mg/dL, Normal 150-199 mg/dL, Borderline high 200-499 mg/dL, High>499 mg/dL, Very high Performed By: #### 1 5067-2, 2243-4 ####[facility] LABCLIA [id number] [place] [address] [place]#### 94046-1 ####[facility] LABCLIA [id number] [place] [address] [place] [facility] LEEANNE [facility] [id number] [address] [place] CNPNon 10-04-2024 CNPN Normal [facility] CNOVon 10-01-2024 CNOV Office Visit ([facility] ) -------- YOLANDE DAVILA ([id number]) 1980 F Date Time Provider Department 10/01/24 3:00 PM ISABELA OLIVERABen During your visit today, we recorded the following information about you: Temperature Pulse Blood pressure Weight 97.9 degrees 97/minute 128/91 78 kg Marina Beal LPN 10/15/2024 8:09 AM Signed Pt in today for annual exam; has bp concerns. C/o headache since this morning. Is having sharp pain to L eye. Denies any chest pain or Shortness of Breath. Pt verbalized consent for AI Scribe today. Isabela Olivera APRN.MANAGER HUMAN RESOURCES 10/15/2024 8:09 AM Signed [facility] [place] [address] [place] [address] Date of Evaluation: 10/01/2024 Patient Name: Yolande Gomes : 1980 Subjective Yolande Gomes is a 43-year-old female with a history of breast cancer, migraines, and hypothyroidism, presenting for an annual wellness visit and follow-up for HTN. Last 10 Encounter BP Readings: Date: BP: 10/01/2024 128/91 09/24/2024 150/96[c/o headache[ 08/30/2024 133/88 08/21/2024 138/66 08/20/2024 131/90 08/19/2024 140/81[likely from the medication they just had her stop taking, she also has had migraines due to the medication[ 08/13/2024 141/91 07/29/2024 115/91 07/20/2024 120/73 07/15/2024 116/73 Last 8 Encounter Wt Readings: Date: Wt: 10/01/2024 78 kg (171 lb 15.3 oz) 09/24/2024 78.3 kg (172 lb 9.9 oz) 08/30/2024 77.8 kg (171 lb 8.3 oz) 08/21/2024 77.8 kg (171 lb 8.3 oz) 08/20/2024 76.9 kg (169 lb 8.5 oz) 08/13/2024 75.9 kg (167 lb 5.3 oz) 07/29/2024 76.2 kg (168 lb 1.6 oz) 07/14/2024 75 kg (165 lb 5.5 oz) Annual Wellness Exam: - Double mastectomy and reconstruction with expanders in place; awaiting further reconstruction. - Genetic testing revealed an abnormal gene, but no family history of breast cancer. - Experiencing nocturnal awakenings around 9220-1526. - Denies dysphagia or GERD symptoms. - Recent travel included camping for a week before medical issues arose. Breast Cancer: - Diagnosed on 05/28, with surgery on 06/16. - Taking anastrozole with a recommended duration of 5-10 years. - Receiving Lupron injections every 3 months; first injection in June, next scheduled in 2 weeks. - Noted swelling and numbness in the right arm, with 2 lymph nodes removed from the right side. - Gained approximately 20 lbs since surgery; reports tightness in legs and rings. - Oncology monitoring estradiol and FSH levels monthly. Hypertension: - Recent initiation of losartan; experiencing improvement in systolic BP. - Diastolic BP remains around 90-91 mmHg. - Noted one episode of diarrhea after starting losartan, but no ongoing issues. - Home BP monitoring using a prescribed cuff on the left arm. Hypothyroidism: - Managed by endocrinology. - Taking levothyroxine 1 tablet Friday through Friday, skipping Friday and Friday. Depression: - Taking fluoxetine 50 mg, increased from 40 mg on recommendation from reconstructive surgeon Dr. Gipson. Migraines: - Managed by neurology. - Decreased frequency but increased intensity, with associated emesis. - Experiences visual auras described as squigglies or sparkles. - Taking eletriptan PRN. Review of Systems Constitutional: (+) weight gain Eyes: (+) visual disturbances Ears/Nose/Mouth/Throat: (-) dysphagia Gastrointestinal: (+) vomiting Musculoskeletal: (+) right arm pain Skin: (+) peripheral edema, (+) right arm swelling Neurological: (+) headaches, (+) right arm numbness Psychiatric: (+) insomnia PAST MEDICAL HISTORY Diagnosis Date Acne On spironolactone Anxiety Breast cancer (HCC) invasive ductal carcinoma R breast Dysmenorrhea Dyspareunia Hypothyroidism also known nodule Migraines Papanicolaou smear of cervix with low grade squamous intraepithelial lesion (LGSIL) 02/24/2006 PMH - PAST MEDICAL HISTORY OF bipolar, borderline personality disorder PAST SURGICAL HISTORY Procedure Laterality Date PAST SURGICAL HISTORY OF tonsils PAST SURGICAL HISTORY OF DANDC 2017 and 2020 PAST SURGICAL HISTORY OF 06/16/2024 double masectomy FAMILY HISTORY Problem Relation Age of Onset [...] monthly/social 2-3 drink mixed drink Drug use: Never Current Outpatient Medications Medication Sig losartan (COZAAR) 25 (more content not included)... Normal [facility] CNTHERAPYon 09-27-2024 CNTHERAPY [facility] THERAPY NTon 09-27-2024 THERAPY NT [facility] CNOVon 09-24-2024 CNOV [facility] CTA ABD/PELV W IVCONon 09-13 CTA ABD/PELV W IVCON Normal [facility] CTA Abdominal vessels and Pe lvis vessels W contrast Alfie 09-13-2024 IMPRESSION: NO VENTRAL ABDOMINAL WALL MASS, HERNIA OR FLUID COLLECTION. 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 Top Frame Fitter: KENZIE Transcribe Date/Time: Sep 13 2024 10:13A Dictated by : LOUEI WILSON MD This examination was interpreted and the report reviewed and electronically signed by: LOUIE WILSON MD on Sep 13 2024 12:46PM [facility] DIVISION OF RADIOLOGY * * *Final Report* * * DATE OF EXAM: Sep 13 2024 10:05AM [facility]11 - CTA ABD/PELV W IVCON / PROCEDURE REASON: Encounter for other preprocedural examination * * * * Physician Interpretation * * * * CTA PELVIS VASCULAR MAPPING FOR BREAST CANCER RECONSTRUCTION SURGICAL PLANNING: History: Breast cancer. GRETTA reconstruction surgical planning. TECHNIQUE: Arterial phase imaging of the pelvis and lower abdomen was performed utilizing nonionic contrast intravenously scanning caudal to cranial timed for the inferior epigastric artery. CTA: Post-processed images {Maximum intensity Projection (MIP) and Volume-rendered (VR)} images were created, reviewed and archived. Contrast: IV: 120 ml of Omnipaque 350 Oral Contrast: None CT Radiation dose: Integrated dose-length product (DLP) for this visit = 429 mGy*cm. CT Dose Reduction Employed: Automated exposure control(AEC) and iterative recon COMPARISON: None RESULTS: CT Pelvis: Anterior abdominal wall: No ventral abdominal wall mass, hernia or fluid collection. Rectus muscles are symmetric. Other abdomen/pelvis: Imaged portions of the abdominal and other pelvic organs are unremarkable. Bones: No destructive osseous lesions. CTA / 3D Imaging: Findings: The course of the inferior epigastric artery and major branches in the anterior abdominal wall are shown bilaterally. The location of the dominant scuba diving instructor branches through the rectus abdominous muscle with respect to the umbilicus is measured as follows (up to four vessels): RIGHT side: 1) 1 - 2 mm: 51 mm lateral, 40 mm deep, and 16 mm inferior to the umbilicus. 2) 1 - 2 mm: 38 mm lateral, 38 mm deep, at level of the umbilicus 3) 1 - 2 mm: 25 mm lateral, 37 mm deep, and 17 mm superior to the umbilicus. 4) 1 - 2 mm: 52 mm lateral, 40 mm deep, and 28 mm superior to the umbilicus. LEFT side: 1) 1 - 2 mm: 25 mm lateral, 38 mm deep, and 28 mm inferior to the umbilicus. 2) 1 - 2 mm: 58 mm lateral, 42 mm deep, and 16 mm inferior to the umbilicus. 3) 1 - 2 mm: 10 mm lateral, 36 mm deep, and 21 mm superior to the umbilicus. 4) 1 - 2 mm: 57 mm lateral, 39 mm deep, and 33 mm superior to the umbilicus. Images were created and stored on the archive to be used for surgical planning purposes. DIVISION OF RADIOLOGY Provider, [facility] - 09/13/2024 * * *Final Report* * * DATE OF EXAM: Sep 13 2024 10:05AM [facility]11 - CTA ABD/PELV W IVCON / PROCEDURE REASON: Encounter for other preprocedural examination * * * * Physician Interpretation * * * * CTA PELVIS VASCULAR MAPPING FOR BREAST CANCER RECONSTRUCTION SURGICAL PLANNING: History: Breast cancer. GRETTA reconstruction surgical planning. TECHNIQUE: Arterial phase imaging of the pelvis and lower abdomen was performed utilizing nonionic contrast intravenously scanning caudal to cranial timed for the inferior epigastric artery. CTA: Post-processed images {Maximum intensity Projection (MIP) and Volume-rendered (VR)} images were created, reviewed and archived. Contrast: IV: 120 ml of Omnipaque 350 Oral Contrast: None CT Radiation dose: Integrated dose-length product (DLP) for this visit = 429 mGy*cm. CT Dose Reduction Employed: Automated exposure control(AEC) and iterative recon COMPARISON: None RESULTS: CT Pelvis: Anterior abdominal wall: No ventral abdominal wall mass, hernia or fluid collection. Rectus muscles are symmetric. Other abdomen/pelvis: Imaged portions of the abdominal and other pelvic organs are unremarkable. Bones: No destructive osseous lesions. CTA / 3D Imaging: Findings: The course of the inferior epigastric artery and major branches in the anterior abdominal wall are shown bilaterally. The location of the dominant scuba diving instructor branches through the rectus abdominous muscle with respect to the umbilicus is measured as follows (up to four vessels): RIGHT side: 1) 1 - 2 mm: 51 mm lateral, 40 mm deep, and 16 mm inferior to the umbilicus. 2) 1 - 2 mm: 38 mm lateral, 38 mm deep, at level of the umbilicus 3) 1 - 2 mm: 25 mm lateral, 37 mm deep, and 17 mm superior to the umbilicus. 4) 1 - 2 mm: 52 mm lateral, 40 mm deep, and 28 mm superior to the umbilicus. LEFT side: 1) 1 - 2 mm: 25 mm lateral, 38 mm deep, and 28 mm inferior to the umbilicus. 2) 1 - 2 mm: 58 mm lateral, 42 mm deep, and 16 mm inferior to the umbilicus. 3) 1 - 2 mm: 10 mm lateral, 36 mm deep, and 21 mm superior to the umbilicus. 4) 1 - 2 mm: 57 mm lateral, 39 mm deep, and 33 mm superior to the umbilicus. Images were created and stored on the archive to be used for surgical planning purposes. IMPRESSION IMPRESSION: NO VENTRAL ABDOMINAL WALL MASS, HERNIA OR FLUID COLLECTION. 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 Top Frame Fitter: KENZIE Transcribe Date/Time: Sep 13 2024 10:13A Dictated by : LOUIE WILSON MD This examination was interpreted and the report reviewed and electronically signed by: LOUIE WILSON MD on Sep 13 2024 12:46PM EST [facility] Radiology Study observation (narrative) [facility] CTA Abdominal vessels and Pe lvis vessels W contrast IVOrdered By: Ccf Provider on 09-13-2024 [facility] US Pelvison 09-12-2024 [facility] US Pelvison 09-10-2024 Radiology Study observation (narrative) [facility] CNTHERAPYon 09-06-2024 CNTHERAPY Normal [facility] THERAPY NTon 09-06-2024 THERAPY NT Normal [facility] CNOVSPon 08-30-2024 CNOVSP Normal [facility] Cortis SerPl-mCncon 08-31-19 25 Cortisol [Mass/Vol] 6.6 ug/dL Normal 4.8-19.5 [facility] Comment on above: Order Comment: Speci men Type: BLOOD SPECIMENOrdering Facility: [facility] Address: [address] [place] [address] [place] [address] Result Comment: Prov ided reference range is from 6-10 AM sample collection time.Cortisol Reference Range: 6-10 AM = 4.8-19.5 ug/dL, 4-8 PM = 2.5-11.9 ug/dL Performed By: #### 2 143-6 ####[facility] LABCLIA [id number] [place] [address] [place] UA DIP,URINE HCG (POC)on Beta HCG ( test) Ql (U) Negative Negative [facility] Comment on above: Location:[address], [facility] Coil Tester (POCT) Internal QC OK [facility] Location:[facility], [address] [place] [address], [address] [place] [address] POINT OF CARE [facility] ALLIED HEALTHon 08-21-2024 ALLIED HEALTH HNO ID: [id number] Author: LISSETTE COLINDRES Tech Service: Radiology Author Type: Software Quality Automation Engineer Type: Allied Health Filed: 08/21/2024 11:38 Note Text: Radiology Service Progress Note PATIENT NAME: Yolande Gomes DATE OF SERVICE: August 21, 2024 TIME: 11:38 AM PATIENT IDENTITY VERIFICATION COMPLETED USING TWO (2) IDENTIFIERS: Name and Date of confirmed by patient verbally and Name and Date of confirmed by identification band. FALL SCREENING: Has the patient had 2 falls in the last year or 1 fall with injury or currently using an Ambulatory Assistive Device (Walker, Cane, Wheelchair, Crutches, etc.)? Emergency Room Patient: Screened in ED PATIENT GENDER DATA: Assigned female at . status: : No status: NO. PATIENT RELEVANT IMPLANT DATA REVIEWED: Yes PATIENT PRESENTS WITH AN IMPLANTABLE OR ATTACHED ROLLING ATTENDANT: No RADIOLOGY DEPARTMENT: CT; Exam(s) Completed: Brain PERIPHERAL IV DATA: Inpatient: see LDA documentation SIGNED BY: Sinai Forrest August 21, 2024 11:38 AM Normal [facility] CBC W Auto Differential pane l (Bld)on 08-21-2024 Basophils (Bld) [#/Vol] 0.05 10*3/uL Normal <0.11 [facility] Comment on above: Order Comment: Speci men Type: BLOOD SPECIMEN [facility] Address: [address] [place] [address] Performed By: #### 5 7021-8 #### [facility] CLIA [id number] [address] [place] [address] [place] Basophils/100 WBC (Bld) 0.7 % Normal [facility] Comment on above: Order Comment: Speci men Type: BLOOD SPECIMEN [facility] Address: [address] [place] [address] Performed By: #### 5 7021-8 #### [facility] CLIA [id number] [address] [place] Differential cell count method Nom (Bld) Auto Normal [facility] Comment on above: Order Comment: Speci men Type: BLOOD SPECIMEN [facility] Address: [address] [place] [address] Performed By: #### 5 7021-8 #### [facility] CLIA [id number] [address] [place] [address] [place] Eosinophils (Bld) [#/Vol] 0.12 10*3/uL Normal <0.46 [facility] Comment on above: Order Comment: Speci men Type: BLOOD SPECIMEN [facility] Address: [address] [place] [address] Performed By: #### 5 7021-8 #### [facility] CLIA [id number] [address] [place] Eosinophils/100 WBC (Bld) 1.8 % Normal [facility] Comment on above: Order Comment: Speci men Type: BLOOD SPECIMEN [facility] Address: [address] [place] [address] Performed By: #### 5 7021-8 #### [facility] CLIA [id number] [address] [place] Erythrocyte distribution width (RBC) [Ratio] 11.8 % Normal 11.5-15.0 [facility] Comment on above: Order Comment: Speci men Type: BLOOD SPECIMEN [facility] Address: [address] [place] [address] Performed By: #### 5 7021-8 #### [facility] CLIA [id number] [address] [place] Hematocrit (Bld) [Volume fraction] 41.7 % Normal 36.0-46.0 [facility] Comment on above: Order Comment: Speci men Type: BLOOD SPECIMEN [facility] Address: [address] [place] [address] Performed By: #### 5 7021-8 #### [facility] CLIA [id number] [address] [place] [address] [place] Hemoglobin (Bld) [Mass/Vol] 13.9 g/dL Normal 11.5-15.5 [facility] Comment on above: Order Comment: Speci men Type: BLOOD SPECIMEN [facility] Address: [address] [place] [address] Performed By: #### 5 7021-8 #### [facility] CLIA [id number] [address] [place] [address] [place] Immature granulocytes (Bld) [#/Vol] 10*3/uL Normal <0.10 [facility] Comment on above: Order Comment: Speci men Type: BLOOD SPECIMEN [facility] Address: [address] [place] [address] Performed By: #### 5 7021-8 #### [facility] CLIA [id number] [address] [place] Immature granulocytes/100 WBC (Bld) 0.3 % Normal [facility] Comment on above: Order Comment: Speci men Type: BLOOD SPECIMEN [facility] Address: [address] [place] [address] Performed By: #### 5 7021-8 #### [facility] CLIA [id number] [address] [place] [address] [place] Lymphocytes (Bld) [#/Vol] 2.40 10*3/uL Normal 1.00-4.00 [facility] Comment on above: Order Comment: Speci men Type: BLOOD SPECIMEN [facility] Address: [address] [place] [address] Performed By: #### 5 7021-8 #### [facility] CLIA [id number] [address] Lymphocytes/100 WBC (Bld) 35.2 % Normal [facility] Comment on above: Order Comment: Speci men Type: BLOOD SPECIMEN [facility] Address: [address] [place] [address] Performed By: #### 5 7021-8 #### [facility] CLIA [id number] [address] MCH (RBC) [Entitic mass] 30.3 pg Normal 26.0-34.0 [facility] Comment on above: Order Comment: Speci men Type: BLOOD SPECIMEN [facility] Address: [address] [place] [address] Performed By: #### 5 7021-8 #### [facility] CLIA [id number] [address] MCHC (RBC) [Mass/Vol] 33.3 g/dL Normal 30.5-36.0 [facility] Comment on above: Order Comment: Speci men Type: BLOOD SPECIMEN [facility] Address: [address] [place] [address] Performed By: #### 5 7021-8 #### [facility] CLIA [id number] [address] MCV (RBC) [Entitic vol] 90.8 fL Normal 80.0-100.0 [facility] Comment on above: Order Comment: Speci men Type: BLOOD SPECIMEN [facility] Address: [address] [place] [address] Performed By: #### 5 7021-8 #### [facility] CLIA [id number] [address] Monocytes (Bld) [#/Vol] 0.47 10*3/uL Normal <0.87 [facility] Comment on above: Order Comment: Speci men Type: BLOOD SPECIMEN [facility] Address: [address] [place] [address] Performed By: #### 5 7021-8 #### [facility] CLIA [id number] [address] [place] Monocytes/100 WBC (Bld) 6.9 % Normal [facility] Comment on above: Order Comment: Speci men Type: BLOOD SPECIMEN [facility] Address: [address] [place] [address] Performed By: #### 5 7021-8 #### [facility] CLIA [id number] [address] [place] [address] [place] Neutrophils (Bld) [#/Vol] 3.76 10*3/uL Normal 1.45-7.50 [facility] Comment on above: Order Comment: Speci men Type: BLOOD SPECIMEN [facility] Address: [address] [place] [address] Performed By: #### 5 7021-8 #### [facility] CLIA [id number] [address] [place] [address] [place] Neutrophils/100 WBC (Bld) 55.1 % Normal [facility] Comment on above: Order Comment: Speci men Type: BLOOD SPECIMEN [facility] Address: [address] [place] [address] Performed By: #### 5 7021-8 #### [facility] CLIA [id number] [address] [place] [address] [place] Nucleated RBC (Bld) [#/Vol] 10*3/uL Normal <0.01 [facility] Comment on above: Order Comment: Speci men Type: BLOOD SPECIMEN [facility] Address: [address] [place] [address] Performed By: #### 5 7021-8 #### [facility] CLIA [id number] [address] [place] [address] [place] Nucleated RBC/100 WBC (Bld) [Ratio] 0.0 /100 WBC Normal [facility] Comment on above: Order Comment: Speci men Type: BLOOD SPECIMEN [facility] Address: [address] [place] [address] Performed By: #### 5 7021-8 #### [facility] CLIA [id number] [address] Platelet mean volume (Bld) [Entitic vol] 9.8 fL Normal 9.0-12.7 [facility] Comment on above: Order Comment: Speci men Type: BLOOD SPECIMEN Ordering Facility: [facility] Address: [address] [place] [address] Performed By: #### 5 7021-8 #### [facility] CLIA [id number] [address] [place] Platelets (Bld) [#/Vol] 318 10*3/uL Normal 150-400 [facility] Comment on above: Order Comment: Speci men Type: BLOOD SPECIMEN Ordering Facility: [facility] Address: [address] [place] [address] Performed By: #### 5 7021-8 #### [facility] CLIA [id number] [address] [place] [address] [place] RBC (Bld) [#/Vol] 4.59 10*6/uL Normal 3.90-5.20 [facility] Comment on above: Order Comment: Speci men Type: BLOOD SPECIMEN Ordering Facility: [facility] Address: [address] [place] [address] Performed By: #### 5 7021-8 #### [facility] CLIA [id number] [address] [place] WBC (Bld) [#/Vol] 6.82 10*3/uL Normal 3.70-11.00 [facility] Comment on above: Order Comment: Speci men Type: BLOOD SPECIMEN Ordering Facility: [facility] Address: [address] [place] [address] Performed By: #### 5 7021-8 #### [facility] CLIA [id number] [address] [place] [address] BRAIN WO IVCONon 08-22-[address] BRAIN WO IVCON * * *Final Report* * * DATE OF EXAM: Aug 21 2024 11:44AM [facility] [place] 0504 - CT BRAIN WO IVCON / PROCEDURE REASON: Headache, sudden, severe * * * * Physician Interpretation * * * * EXAMINATION: CT BRAIN WO IVCON CLINICAL HISTORY: Acute onset headache. History of breast cancer TECHNIQUE: Serial axial images without IV contrast were obtained from the vertex to the foramen magnum. MQ: CTBWO_3 CT Radiation dose: Integrated Dose-Length Product (DLP) for this visit = 763 mGy*cm CT Dose Reduction Employed: Automated exposure control (AEC) COMPARISON: None. RESULT: Post-operative change: None. Acute change: No evidence [...] for age. Paranasal sinuses and skull base: Tiny mucus retention cyst left maxillary sinus. The skull base and imaged soft tissues are unremarkable. Localizer images: Unremarkable. IMPRESSION: No acute intracranial process. Top Frame Fitter: DIMITRI Transcribe Date/Time: Aug 21 2024 11:49A Dictated by : DARRIUS HANNAH MD This examination was interpreted and the report reviewed and electronically signed by: DARRIUS HANNAH MD on Aug 21 2024 11:51AM EST [id number] Normal [facility] Comprehensive metabolic 2000 panelon 08-21-2024 Albumin [Mass/Vol] 4.4 g/dL Normal 3.9-4.9 [facility] Comment on above: Order Comment: Lacey castellanos Type: BLOOD SPECIMEN Ordering Facility: [facility] Address: [address] [place] [address] Performed By: #### 2 4323-8, 3040-3, 55453-9, 3016-3 #### [facility] CLIA [id number] [address] [place] [address] [place] ALP [Catalytic activity/Vol] 74 U/L Normal 34-123 [facility] Comment on above: Order Comment: Speci men Type: BLOOD SPECIMEN Ordering Facility: [facility] Address: [address] [place] [id number] Performed By: #### 2 4323-8, 3040-3, 98873-6, 6-3 #### [facility] CLIA [id number] [address] [place] [address] [place] ALT [Catalytic activity/Vol] 14 U/L Normal 7-38 [facility] Comment on above: Order Comment: Speci men Type: BLOOD SPECIMEN Ordering Facility: [facility] Address: [address] [place] [id number] Performed By: #### 2 4323-8, 3040-3, 14939-0, 3 #### [facility] CLIA [id number] [address] [place] [address] [place] Anion gap [Moles/Vol] 11 mmol/L Normal 8-15 [facility] Comment on above: Order Comment: Speci men Type: BLOOD SPECIMEN Ordering Facility: [facility] Address: [address] [place] [address] Performed By: #### 2 4323-8, 3040-3, 90887-4, 63 #### [facility] CLIA [id number] [address] [place] AST [Catalytic activity/Vol] 18 U/L Normal 13-35 [facility] Comment on above: Order Comment: Speci men Type: BLOOD SPECIMEN Ordering Facility: [facility] Address: [address] [place] [id number] Performed By: #### 2 4323-8, 3040-3, 29210-5, 6-3 #### [facility] CLIA [id number] [address] [place] [address] [place] Bilirubin [Mass/Vol] 0.5 mg/dL Normal 0.2-1.3 [facility] Comment on above: Order Comment: Speci men Type: BLOOD SPECIMEN Ordering Facility: [facility] Address: [address] [place] [id number] Performed By: #### 2 4323-8, 3040-3, 22895-4, 3016-3 #### [facility] CLIA [id number] [address] [place] [address] [place] Calcium [Mass/Vol] 9.4 mg/dL Normal 8.5-10.2 [facility] Comment on above: Order Comment: Speci men Type: BLOOD SPECIMEN Ordering Facility: [facility] Address: [address] [place] [address] Performed By: #### 2 4323-8, 3040-3, , 3 #### [facility] CLIA [id number] [address] [place] [address] [place] Chloride [Moles/Vol] 100 mmol/L Normal 98-107 [facility] Comment on above: Order Comment: Speci men Type: BLOOD SPECIMEN Ordering Facility: [facility] Address: [address] [place] [address] Performed By: #### 2 4323-8, 0-3, , 3 #### [facility] CLIA [id number] [address] [place] [address] [place] CO2 [Moles/Vol] 27 mmol/L Normal 22-30 [facility] Comment on above: Order Comment: Speci men Type: BLOOD SPECIMEN Ordering Facility: [facility] Address: [address] [place] [address] Performed By: #### 2 4323-8, 3040-3, , 3 #### [facility] CLIA [id number] [address] [place] [address] [place] Creatinine [Mass/Vol] 0.80 mg/dL Normal 0.58-0.96 [facility] Comment on above: Order Comment: Speci men Type: BLOOD SPECIMEN Ordering Facility: [facility] Address: [address] [place] [address] Performed By: #### 2 4323-8, 3040-3, , 3 #### [facility] CLIA [id number] [address] [place] [address] [place] Creatinine and Glomerular filtration rate.predicted panel (S/P/Bld) 93 mL/min/1.73m??? Normal >=60 [facility] Comment on above: Order Comment: Lacey castellanos Type: BLOOD SPECIMEN Ordering Facility: [facility] Address: [address] [place] [address] Result Comment: Apryl mated Glomerular Filtration Rate [...] reflect actual GFR. Performed By: #### 2 4323-8, 3040-3, 48160-1, 3015-3 #### [facility] CLIA [id number] [address] [place] [address] [place] Glucose [Mass/Vol] 88 mg/dL Normal 74-99 [facility] Comment on above: Order Comment: Lacey castellanos Type: BLOOD SPECIMEN Ordering Facility: [facility] Address: [address] [place] [address] Result Comment: The [place] Diabetes Association (ADA) provides guidance for cutoff [...] Standards of Medical Care in Diabetes 2016, [place] Diabetes Association. Diabetes Care. 2016.39(Suppl 1). Performed By: #### 2 4323-8, 3040-3, 61991-9, 3 #### [facility] CLIA [id number] [address] [place] [id number] [place] Potassium [Moles/Vol] 4.5 mmol/L Normal 3.7-5.1 [facility] Comment on above: Order Comment: Lacey castellanos Type: BLOOD SPECIMEN Ordering Facility: [facility] Address: [address] [place], [place] [address] Performed By: #### 2 4323-8, 3040-3, 74796-0, 3016-3 #### [facility] CLIA [id number] [address] [place] Protein [Mass/Vol] 7.3 g/dL Normal 6.3-8.0 [facility] Comment on above: Order Comment: Speci men Type: BLOOD SPECIMEN Ordering Facility: [facility] Address: [address] [place] [address] Performed By: #### 2 4323-8, 3040-3, 41200-1, 6-3 #### [facility] CLIA [id number] [address] STATES OF [facility] Sodium [Moles/Vol] 138 mmol/L Normal 136-144 [facility] Comment on above: Order Comment: Speci men Type: BLOOD SPECIMEN Ordering Facility: [facility] Address: [address] [place] [address] Performed By: #### 2 4323-8, 3040-3, 85825-8, 6-3 #### [facility] CLIA [id number] [address] [place] Urea nitrogen [Mass/Vol] 14 mg/dL Normal 7-21 [facility] Comment on above: Order Comment: Speci men Type: BLOOD SPECIMEN Ordering Facility: [facility] Address: [address] [place] [address] Performed By: #### 2 4323-8, 3040-3, 40155-3, 6-3 #### [facility] CLIA [id number] [address] [place] [address] [place] ED NOTEon 08-21-2024 ED NOTE HNO ID: [id number] Author: RUBINA SAXENA RN Service: Nursing Author Type: Registered Nurse Type: ED Notes Filed: 08/21/2024 13:25 Note Text: Pt discharged from the facility at this time in satisfactory condition. Pt peripheral IV removed prior to discharge. Pt educated on how to schedule follow up appt with PCP. This nurse reviewed entire discharge packet with Pt including: medications, side effects, s/s to report to MD. Pt verbalized understanding. Pt has a ride home. Pt left with all personal belongings exiting the facility. [facility] ED PROV NOTEon 08-21-2024 ED PROV NOTE HNO ID: [id number] Author: LUIS MORELAND DO Service: Emergency Medicine Author Type: Physician Type: ED Provider Notes Filed: 08/21/2024 13:19 Note Text: ED Provider Note Patient Name: Yolande Gomes : 1980 SERVICE DATE: 08/21/24 History Patient presents with: Hypertension: Pt states she took her BP multiple times this morning and it was high. Pt states she does not have a history of HTN. Pt states she has had a headache since Friday. Pt has a history of breast cancer, oncology told her to come in if bp got any higher. Pt states she has a MRI scheduled for Friday her headaches. 43-year-old female with a history of breast cancer who is currently only on every 3-month Lupron injections, hypothyroidism, anxiety presenting to the ER today with elevated blood pressure, elevated heart rate, generally feeling unwell, chest pressure, nausea, headaches. Patient was seen 2 weeks ago at outside ER for headaches given headache cocktail and improved and they did not require imaging or any further labs at that time. She is continued to have more days with headaches then without and spoke with her oncology team who actually ordered an MRI of the brain but not to be done for prolonged period of time. She PAST MEDICAL HISTORY Diagnosis Date Acne On [...] Tobacco comments: For 3 years. Quit in 2010 Substance and Sexual Activity Alcohol use: Yes Comment: monthly/social 2-3 drink mixed drink Drug use: No Sexual activity: Yes Partners: Male control/protection: Inserts ALLERGIES Allergen Reactions Penicillins Anaphylaxis Review of Systems Constitutional: Negative for fever. Respiratory: Positive for chest tightness. Negative for shortness of breath. Cardiovascular: Positive for chest pain. Gastrointestinal: Positive for nausea. Neurological: Positive for headaches. All other systems reviewed and are negative. Physical Exam Vitals [08/21/24 1045] BP Pulse Temp Temp src Resp SpO2 Weight Height 150/72 (!) 94 36.7 ?C (98.1 ?F) Oral 20 99 % 77.8 kg (171 lb 8.3 oz) 1.6 m (5' 3) Physical Exam Vitals and nursing note reviewed. Constitutional: General: She is not in acute distress. Appearance: She is well-developed. She is not ill-appearing. HENT: Head: Normocephalic and atraumatic. Eyes: Conjunctiva/sclera: Conjunctivae normal. Neck: Thyroid: No thyromegaly. Trachea: No tracheal deviation. Cardiovascular: Rate and Rhythm: Normal rate and regular rhythm. Pulmonary: Effort: Pulmonary effort is normal. No respiratory distress. Breath sounds: Normal breath sounds. Abdominal: General: There is no distension. Musculoskeletal: General: Normal range of motion. Cervical back: Normal range of motion. Right lower leg: No edema. Left lower leg: No edema. Skin: General: Skin is warm and dry. Capillary Refill: Capillary refill takes less than 2 seconds. Findings: No rash. Neurological: Mental Status: She is alert and oriented to person, place, and time. Comments: Alert and oriented x 3 cranial nerves II through XII are intact bilaterally normal speech Normal finger to nose 5 out of 5 strength in the upper and lower extremities both proximal and distally Normal sensation in all 4 extremities Psychiatric: Behavior: Behavior normal. Diagnostic Testing ED Labs Ordered and Reviewed PROTHROMBIN TIME - Abnormal; Notable for the following components: Result Value Ref Range INR <0.9 (*) 0.9 - 1.3 All other components within normal limits COMPREHENSIVE METABOLIC PANEL - Normal MAGNESIUM - Normal LIPASE - Normal HIGH SENSITIVITY TROPONIN T (INITIAL) - Normal NT PRO BNP - Normal THYROID STIMULATING HORMONE - Normal HIGH SENSITIVITY TROPONIN T (SECOND) - Normal COMPLETE BLOOD COUNT AND DIFFERENTIAL Results for orders placed or performed during the hospital encounter of 08/21/24 EKG Impression NORMAL SINUS RHYTHM LOW VOLTAGE QRS SEPTAL INFARCT , AGE UNDETERMINED ABNORMAL ECG NO STEMI Confirmed by LUIS MORELAND DO ([id number]) on 08/21/2024 11:39:19 AM (more content not included)... Normal [facility] EKGon 08-21-2024 Electrocardiogram Ventricular Rate : 8 9 BPM Atrial Rate : 89 BPM P-R Interval : 158 ms QRS Duration : 66 ms Q-T Interval : 358 ms QTC Calculation(Bazett) : 435 ms Calculated P Young : 68 degrees Calculated R Young : 82 degrees Calculated T Young : 64 degrees NORMAL SINUS RHYTHM LOW VOLTAGE QRS SEPTAL INFARCT , AGE UNDETERMINED ABNORMAL ECG NO STEMI Confirmed by LUIS MORELAND DO ([id number]) on 08/21/2024 11:39:19 AM NAME : YOLANDE GOMES PID : [id number] : 1980 Gender : Female Race : ORD : Procedure Date : Aug 21 2024 11:22:30 Edit Date : Aug 21 2024 11:39:22 Diagnosis: NORMAL SINUS RHYTHM LOW VOLTAGE QRS SEPTAL INFARCT , AGE UNDETERMINED ABNORMAL ECG NO STEMI Confirmed by LUIS MORELAND DO ([id number]) on 08/21/2024 11:39:19 AM Test Reason : Location : 1 : ER ED Overread By : LUIS MORELAND DO Edited By : LUIS MORELAND DO Referred By : , Acquired by : , Garrett [facility] HIGH SENSITIVITY TROPONIN T (INITIAL)on 08-21-2024 Troponin T.cardiac High sensitivity method [Mass/Vol] <6 Normal <12 [facility] Comment on above: Order Comment: Lacey castellanos Type: BLOOD SPECIMEN Order[facility] Facility[facility] Address: [address] [place] [address] Performed By: #### L [id number], 47056-6 #### [facility] CLIA [id number] [address] [place] [address] [place] HIGH SENSITIVITY TROPONIN T (SECOND)on 08-21-2024 Troponin T.cardiac High sensitivity method [Mass/Vol] <6 Normal <12 [facility] Comment on above: Order Comment: Lacey castellanos Type: BLOOD SPECIMEN Order[facility] Address: [address] [place] [address] Performed By: #### L [id number] #### [facility] CLIA [id number] [address] [place] [address] [place] Lipase SerPl-cCncon 08-22-19 25 Lipase [Catalytic activity/Vol] 42 U/L Normal 16-61 [facility] Comment on above: Order Comment: Speci men Type: BLOOD SPECIMEN Order[facility] Address: [address] [place] [address] Performed By: #### 2 4323-8, 3040-3, 78124-8, 3016-3 #### [facility] CLIA [id number] [address] [place] Magnesium SerPl-mCncon 08-21 Magnesium [Mass/Vol] 1.9 mg/dL Normal 1.7-2.3 [facility] Comment on above: Order Comment: Speci men Type: BLOOD SPECIMEN Order[facility] Address: [address] [place] [address] Performed By: #### 2 4323-8, 3040-3, 59416-8, 3016-3 #### [facility] CLIA [id number] [address] [place] [address] [place] [facility] NT-proBNP SerPl-mCncon 08-21 Natriuretic peptide.B prohormone N-Terminal [Mass/Vol] <36 Normal <125 [facility] Comment on above: Order Comment: Speci men Type: BLOOD SPECIMEN Order[facility] Address: [address] [place] [address] Performed By: #### L [id number], 64200-5 #### [facility] CLIA [id number] [address] [place] PT panel Coag (PPP)on 2024 INR Coag (PPP) [Relative time] {INR} Low 0.9-1.3 [facility] Comment on above: Order Comment: Speci men Type: BLOOD SPECIMEN Order[facility] Address: [address] [place] [address] Result Comment: Susan min K Antagonist (VKA) Therapeutic Range: INR 2 to 3 (Target INR of 2.5) Note: For patients treated with VKA drugs, such as warfarin, the [place] [employer] 2012 Guideline recommends a therapeutic INR range of 2 to 3 (target INR of 2.5). This recommendation includes high-risk patients with antiphospholipid syndrome with previous arterial or venous thromboembolism, current-generation mechanical or bioprosthetic aortic heart valve replacement. Note: Patients with mechanical aortic valve replacement and additional risk factors for thromboembolic events (atrial fibrillation, previous thromboembolism, LV dysfunction, hypercoagulable conditions) or an older generation mechanical AVR (i.e., ball in-Cage) or any mechanical MVR should have a INR therapeutic range of 2.5 to 3.5 (target INR of 3). Pina PACE, et al. Chest 2012, 141:7S-47S Manuela HORN et al. [facility] 2017, 70: 252-289 Performed By: #### 3 4528-0 #### [facility] CLIA [id number] [address] [place] [address] [place] PT Coag (PPP) [Time] 9.9 s Normal 9.7-13.0 [facility] Comment on above: Order Comment: Lacey castellanos Type: BLOOD SPECIMEN Order[facility] Address: [address] [place] [address] Result Comment: Samp le checked for clot. Performed By: #### 3 4528-0 #### [facility] CLIA [id number] [address] [place] [address] [place] TSH SerPl-aCncon 08-21-2024 TSH Qn 0.581 m[IU]/L Normal 0.270-4.200 [facility] Comment on above: Order Comment: Lacey castellanos Type: BLOOD SPECIMENOrdering Facility: [facility] Address: [address] [place], [place] [address] Result Comment: If t he patient is , TSH reference range varies by gestational period: First Trimester (weeks 9-12): 0.180-2.990 mIU/L Second Trimester: 0.110-3.980 mIU/L Third Trimester: 0.480-4.710 mIU/L Ti Whitfield et al. A Practical Approach for the Verifications and Determination of Site- and Trimester-Specific Reference Intervals for Thyroid Function tests in . Thyroid, 2019:29:3:412-420. Sylvester Farias, et al. 2017 Guidelines of the [place] Thyroid Association for the Diagnosis and Management of Thyroid Disease during and the . Thyroid, 2017:27:3:315-389. Performed By: #### 2 4323-8, 3040-3, 70495-1, 3016-3 ####[facility] [id number] [place] [address] [place] CNOVSPon 08-20-2024 CNOVSP Normal [facility] CNOVon 08-19-2024 CNOV Normal [facility] CNPNon 08-19-2024 CNPN Normal [facility] Estradiol SerPl-mCncon 08-19 E2 [Mass/Vol] pg/mL Normal [facility] Comment on above: Order Comment: Speci men Type: BLOOD SPECIMENOrdering Facility: [facility] Address: [address] [place] [address] Result Comment: This test is not suitable for patients receiving treatment with the drug Fulvestrant (Faslodex). The drug causes an interference leading to falsely elevated estradiol results.Menstrual cycle Estradiol reference ranges:Follicular : < 234 pg/mLOvulation : 41 to 398 pg/mLLuteal : < 342 pg/mLPregnancy Estradiol reference ranges vary by gestational period:First trimester : 154 to 3243 pg/mLSecond trimester : 1561 to 21696 pg/mLThird trimester : 8285 to >45076 pg/mLPost-menopausal Estradiol reference range: < 41 pg/mLReference: 1. Estradiol - E2 (Estradiol III) [package insert V 3.0 Australian]. [employer] [facility], [place], [place], July 2015. Performed By: #### 1 5067-2, 2243-4 ####[facility]IA [id number] [place] [address] [place] FSH SerPl-aCncon 08-19-2024 Follitropin Qn 4.0 m[IU]/mL Normal See comment [facility] Comment on above: Order Comment: Speci men Type: BLOOD SPECIMENOrdering Facility: [facility] Address: [address] [place] [address] Result Comment: Refe rence range: Follicular: 3.5-12.5 mIU/mL Ovulation: 4.7-21.5 mIU/mL Luteal: 1.7-7.7 mIU/mL Postmenopausal: 25.8-134.8 mIU/mL Performed By: #### 1 5067-2, 2243-4 ####[facility]IA [id number] [place] [address] [place] CNTHERAPYon 08-16-2024 CNTHERAPY Normal [facility] THERAPY NTon 08-16-2024 THERAPY NT Normal [facility] CNOVon 08-13-2024 CNOV Normal [facility] HIGH RISK HUMAN PAPILLOMA RONA (HPV), PCR FOR DETECTION AND GENOTYPINGon 08-13-2024 HPV 16 Ag Ql (Unsp spec) Not detected Normal Not detected [facility] Comment on above: Order Comment: Speci men Type: FLUID SPECIMENOrdering Facility: [facility] Address: [address] [place] [address] Performed By: #### H PVHRT ####[facility] [id number] [place] [address] [place] HPV 18 Ag Ql (Unsp spec) Not detected Normal Not detected [facility] Comment on above: Order Comment: Speci men Type: FLUID SPECIMENOrdering Facility: [facility] Address: [address] [place] [address] Performed By: #### H PVHRT ####[facility] LABIA [id number] [place] [address] [place] HPV 31+33+35+39+45+51+52+5 6+58+59+66+68 DNA DORIAN+probe Ql (Cvx) Not detected Normal Not detected [facility] Comment on above: Order Comment: Speci men Type: FLUID SPECIMENOrdering Facility: [facility] Address: [address] [place] [address] Result Comment: High Risk HPV Other Type includes HPV types 31, 33, 35, 39, 45, 51, 52, 56, 58, 59, 66 and 68. Performed By: #### H PVHRT ####[facility]CLIA [id number] [address] [place] PAP TESTon 08-13-2024 ADEQUACY Normal [facility] Comment on above: Order Comment: Speci men Type: FLUID SPECIMENOrdering Facility: [facility] Address: [address] [place] [address] Result Comment: Sati sfactory for interpretation.Transformation zone present Performed By: #### L [id number] ####[facility] [id number] [place] [address], [address] [place] [address] LABCLIA [id number] [place] [address] [place] CASE REPORT Normal [facility] Comment on above: Order Comment: Speci men Type: FLUID SPECIMENOrdering Facility: [facility] Address: [address] [place] [address] Result Comment: Gyne cologic Cytology Report Case: [id number] Provider: Aysah Roger MD Collected: 08/13/2024 09:57 AMOrdering Location: Gynecology Received: 08/13/2024 12:43 PMFirst Screen: Ana Trevino, CT, ASCPSpecimen: Pap Test, ThinPrep, Cervix Performed By: #### L [id number] ####[facility] [id number] [place] [address], [address] [place] [address] LABCLIA [id number] [place] [id number] [place] CLINICAL HISTORY, CYTOLOGY, CONDUCTOR ORCHESTRA Routine Exam Normal [facility] Comment on above: Order Comment: Speci men Type: FLUID SPECIMENOrdering Facility: [facility] Address: [address] [place] [id number] Performed By: #### L [id number] ####[facility] [id number] [facility] [address] [place] [id number] [place] [facility] LABCLIA [id number] [facility] [address] [place] [address] [place] FINAL PERFORMING LAB Normal [facility] Comment on above: Order Comment: Speci men Type: FLUID SPECIMENOrdering Facility: [facility] Address: [address] [place] [address] Result Comment: Tech nical component, sheet sorter screening performed at: [facility], [address] [place] [address], [address], [place] [id number] CLIA: [id number] interpretation performed at: [facility], [address] [place] [address], [address] Floor, [place] [id number] CLIA# [id number] Director: Ty Jeffers MD Performed By: #### L [id number] ####CCAC LABORATORYCLIA [id number] [facility] 3, [address] [place] [id number] [facility] LABCLIA [id number] [facility] [address] [place] [address] [place] INTERPRETATION, CYTOLOGY, CONDUCTOR ORCHESTRA Normal [facility] Comment on above: Order Comment: Speci men Type: FLUID SPECIMENOrdering Facility: [facility] Address: [address] [place], [place] [id number] Result Comment: Nega tive for intraepithelial lesion or malignancy. at 0829 EDT Performed By: #### L [id number] ####CCAC LABORATORYCLIA [id number] [facility], [address] [place] [address] [place] [facility] LABCLIA [id number] [facility] [place], [place] [address] [place] LMP 07/19/2024 Normal [facility] Comment on above: Order Comment: Speci men Type: FLUID SPECIMENOrdering Facility: [facility] Address: [address] [place] [address] Performed By: #### L [id number] ####CCAC LABORATORYCLIA [id number] [facility], [address] [place], [place] [id number] [place] [facility] LABCLIA [id number] [address] [place] [address] [place] PAP DISCLAIMER COMMENT The Pap Smear is a screening test for cervical cancer. False negative results occur with all screening tests, emphasizing the need for rescreening at recommended intervals, and clinical correlation. Normal [facility] Comment on above: Order Comment: Speci men Type: FLUID SPECIMENOrdering Facility: [facility] Address: [address] [place] [address] Performed By: #### L [id number] ####CCAC LABORATORYCLIA [id number] [facility], [address] [place], [place] [address] [place] [facility] LABCLIA [id number] [address] [place] [address] [place] PAP NICKING MACHINE OPERATOR COMMENT Normal [facility] Comment on above: Order Comment: Speci men Type: FLUID SPECIMENOrdering Facility: [facility] Address: [address] [place] [address] Performed By: #### L [id number] ####CCAC LABORATORYCLIA [id number] [facility], [address] [place], [place] [id number] [place] [facility] LABCLIA [id number] [address] [address] [place] Emergency Department Summary on 08-05-2024 Emergency Department Summary [facility] [address] [place] [address] Emergency Department Summary 08/05/24 MR#: [id number] Acct: [id number] Name: YOLANDE GOMES #: [id number] : 1980 43 From: Mehul Perez MD PCP: Kimberly Kumari PA-C Status:REG ER Location: ED HPI History of Present Illness Chief Complaint: Headache Narrative Narrative: 43-year-old female past medical history of breast carcinoma started a hormone kathleen recently. This may have triggered her migraine headache. She states that yesterday everything was fine but 2:00 this morning, approximately 4 and half hours ago, she developed a migraine headache. It is mainly on the right side of her head but does cross the forehead. She became nauseated and vomited once. She had taken her migraine medication but vomited it up an hour later. She also tried to take ibuprofen and drink a cup of coffee that which usually helps her migraine headaches. She endorses photophobia and phonophobia, but denies any preceding aura or scotoma. No exacerbating or alleviating factors. Currently rates it at 9 out of 10. States she has had to come to the emergency department previously 1 other time where she received a cocktail of medications and IV fluids which helped. [facility] Medical History Breast cancer Contact with or suspected exposure to other viral communicable disease Acute upper respiratory infection Chronic bronchitis with acute exacerbation Pneumonia Acute bronchitis Acute upper respiratory infection Sore throat Acute left otitis media Anxiety Depression PCOS (polycystic ovarian syndrome) History of miscarriage Home Medications ???Medication ???Instructions ???Recorded ???Last Taken ???Type spironolactone 25 mg tablet 50 mg PO DAILY 08/23/22 Unknown Hi story semaglutide (weight loss) 1 mg/0.5 1 mg subcut Q7D 11/26/23 Unknown History mL subcutaneous pen injector levothyroxine 100 mcg tablet 100 mcg PO DAILY 04/19/24 Unknown History fluoxetine 10 mg capsule (Prozac) 10 mg PO QDAY #30 caps 06/04/24 U nknown Rx fluoxetine 40 mg capsule (Prozac) 40 mg PO DAILY #90 caps 06/08/24 Unknown Rx anastrozole 1 mg tablet 1 mg PO DAILY 08/05/24 Unknown His tory eletriptan 40 mg tablet 40 mg PO DAILY 08/05/24 Unknown Hi story ondansetron HCl 4 mg tablet 4 mg PO Q8H PRN PRN nausea/vomitin g 08/05/24 Unknown History Allergy/AdvReac Type Severity Reaction Status Date / Time Penicillins Allergy Anaphylaxis Verified 08/05/24 06:12 Family History Grandfather Cancer lung Grandmother Cancer stomach Aunt Cancer osteo myeloma Surgical History History of bilateral mastectomy S/P tonsillectomy S/P D C (status post [...] safe at home: Yes additional social history: LIZBETH- Morteza EM ROS ED ROS Narrative Review of systems positive for migrainous type headache typical of her previous headaches, right- sided but does cross the forehead. Positive nausea and vomiting, no hematemesis, no recent fevers or chills, no preceding aura. Positive photophobia and phonophobia. EXAM Physical Exam Narrative Exam Narrative: Afebrile. Vital signs noted. Nontoxic-appearing. Cardiovascular examination regular rate and rhythm. Lungs clear to auscultation bilaterally. Abdomen soft and nontender without guarding or rebound. Neurological examination nonfocal, nonlateralizing. PERRL, EOMI. Airway patent. Neck soft and supple without meningismus. Moves all extremities. Const Vital Signs: 08/05/24 06:12 Temperature 97.9 F Temperature Source Oral Pulse Rate 87 Respiratory Rate 18 Blood Pressure 148/88 H Blood Pressure Mean 108 Pulse Ox 100 Oxygen Delivery Method Room Air MDM MDM MDM Narrative Medical decision making narrative: I reviewed her prior records, I have not seen prior visits to this ED regarding migrainous type headaches. She is allergic to penicillin. She will be given a bolus of IV fluids as well as Compazine and Benadryl. She states she had already taken ibuprofen without relief. After Compazine and Benadryl, repeat examination at approximately 7:15 AM showed her to be able to ambulate to the bathroom and back. Additionally, she currently rates her headache at 2 or 3, (more content not included)... Normal [facility] CNOVon 07-29-2024 CNOV Normal [facility] CNOVon 07-20-2024 CNOV Normal [facility] Estradiol SerPl-mCncon 07-20 E2 [Mass/Vol] 105 pg/mL Normal [facility] Comment on above: Order Comment: Speci men Type: BLOOD SPECIMENOrdering Facility: [facility] Address: [address] [place] [address] Result Comment: This test is not suitable for patients receiving treatment with the drug Fulvestrant (Faslodex). The drug causes an interference leading to falsely elevated estradiol results.Menstrual cycle Estradiol reference ranges:Follicular : < 234 pg/mLOvulation : 41 to 398 pg/mLLuteal : < 342 pg/mLPregnancy Estradiol reference ranges vary by gestational period:First trimester : 154 to 3243 pg/mLSecond trimester : 1561 to 26042 pg/mLThird trimester : 8285 to >45152 pg/mLPost-menopausal Estradiol reference range: < 41 pg/mLReference: 1. Estradiol - E2 (Estradiol III) [package insert V 3.0 Australian]. [employer], [place], [place], July 2015. Performed By: #### 1 5067-2, 2243-4 ####[facility] LABCLIA [id number] [place] [address] [place] FSH SerPl-aCncon 07-20-2024 Follitropin Qn 3.5 m[IU]/mL Normal See comment [facility] Comment on above: Order Comment: Speci men Type: BLOOD SPECIMENOrdering Facility: [facility] Address: [address] [place] [address] Result Comment: Refe rence range: Follicular: 3.5-12.5 mIU/mL Ovulation: 4.7-21.5 mIU/mL Luteal: 1.7-7.7 mIU/mL Postmenopausal: 25.8-134.8 mIU/mL Performed By: #### 1 5067-2, 2243-4 ####[facility] LABCLIA [id number] [place] [address] [place] Urgent Care Visit Reporton 0 07-16-2024 Urgent Care Visit Report [facility] [address], [address] [place] [address] OFFICE VISIT Date of Service: 07/16/24 MR#: [id number] Acct: [id number] Name: YOLANDE GOMES Rep #: [id number] : 1980 Provider: HELEN Jamison Age/Sex: 43/F Location: [facility] Status: Signed Intake Vital Signs 04/19/24 11:01 [...] chest congest, cough, fatigue, ear pain, drainage 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 Encouraged to get plenty of rest, drink lots of clear liquids, and use Tylenol or Ibuprofen (unless contraindicated) for (more content not included)... Normal [facility] CNOVon 07-15-2024 CNOV Normal [facility] CNOVon 07-14-2024 CNOV Normal [facility] ANES POSTPROC EVALon 025 ANES POSTPROC EVAL Normal [facility] ANES PRE-OPon 07-06-2024 ANES PRE-OP Normal [facility] OPERATIVE NOon 07-06-2024 OPERATIVE NO Normal [facility] Pathology biopsy report Daniel (Tiss)on 07-06-2024 AP DISCLAIMER Normal [facility] Comment on above: Order Comment: Speci men Type: TISSUE SPECIMENOrdering Facility: [facility] Address: [address] [place] [address] Result Comment: Cristobal mattson Developed Test (LDT) Disclaimer:Performance characteristics of immunohistochemical, immunofluorescent, and chromogenic in-situ hybridization tests have been determined by the performing laboratory within [facility] Edis Mcdaniels Pathology and Laboratory Medicine Department ([facility], [facility], [facility], [facility], [facility], [facility], or [facility]) in a manner consistent with CLIA requirements. One or more of these tests may not have been cleared or approved by the FDA. RT-PLM is regulated under CLIA as qualified to perform high-complexity testing. These tests are used for clinical purposes. These should not be regarded as investigational or for research. Positive and negative controls stain appropriately. Performed By: #### 6 6121-5 ####[facility] LABIA [id number] [address], [facility] [place] CASE REPORT Normal [facility] Comment on above: Order Comment: Speci men Type: TISSUE SPECIMENOrdering Facility: [facility] Address: [address] [place] [address] Result Comment: Surg [facility] Pathology Report Case: [id number] Provider: Pradeep Taylor MD Collected: 07/06/2024 07:58 AMOrdering Location: Admitting Received: 07/06/2024 08:31 AMPaologist: Darrius Buckley MDSpecimen: Breast, Margin, Right, Excision, Right Breast Skin Margin Stitch Eller Single Short Superior, Long Lateral, Skin Anterior Performed By: #### 6 6121-5 ####[facility] LABIA [id number] [address], [address] [place] CLINICAL HISTORY Normal [facility] Comment on above: Order Comment: Speci emanuel Type: TISSUE SPECIMENOrdering Facility: [facility] Address: [address] [place] [address] Result Comment: Pre- op diagnosis: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 Normal [facility] Comment on above: Order Comment: Speci men Type: TISSUE SPECIMENOrdering Facility: [facility] Address: [address] [place] [address] Performed By: #### 6 6121-5 ####[facility] LABIA [id number] [address] FINAL DIAGNOSIS Normal [facility] Comment on above: Order Comment: Speci men Type: TISSUE SPECIMENOrdering Facility: [facility] Address: [address] [place] [address] Result Comment: Righ t breast, skin margin, excision - Skin and subcutaneous tissue with post-surgical site changes, (please see comment).-The final, inked margin is negative for carcinoma.PJM/pjm/07/08/24 at 1026 EDT Performed By: #### 6 6121-5 ####[facility] LABCLIA [id number] [address] OF [facility] FINAL PERFORMING LAB Normal [facility] Comment on above: Order Comment: Speci men Type: TISSUE SPECIMENOrdering Facility: [facility] Address: [address] [place] [address] Result Comment: Diag nostic interpretation performed at: [facility], [address] [place] [address], [place] [address] CLIA# [id number] Director: Carlos Finnegan MD Performed By: #### 6 6121-5 ####[facility] LABCLIA [id number] [address] [place] GROSS DESCRIPTION Normal [facility] Comment on above: Order Comment: Speci men Type: TISSUE SPECIMENOrdering Facility: [facility] Address: [address] [place] [address] Result Comment: A. B reast, Margin, Right, ExcisionReceived in formalin, labeled right breast skin margin [...] necrosis. The specimen is entirely submitted as follows:A1 medial margin, perpendicularA2-A7 body sequentially submitted from medial to lateralA8 lateral margin, perpendicularKSZ July 06, 2024 3:58 PMGross examination performed at [facility], [facility] [place] [address] Performed By: #### 6 6121-5 ####[facility] LABCLIA [id number] [address] CNOVon 07-01-2024 CNOV Normal [facility] CNOVon 06-30-2024 CNOV Office Visit (GENSF) -------- YOLANDE GOMES ([id number]) 1980 F Date Time Provider Department 06/30/24 [...] proline sutures) Consent to be sent via Web[employer] FISH for HER2 is pending Notified Mayuri Ma, and Mindy Taylor MD Ms. Gomes consented to telephone visit I spent a total of 30 minutes on the date of the service which included preparing to see the patient, completing clinical documentation, counseling and educating the patient/family/caregiver , communicating with other HCPs (not separately reported), communicating results to the patient/family/caregiver , and care coordination (not separately reported). Allergies [...] Encounter Status:Closed by PRADEEP TAYLOR on 06/30/24 Normal [facility] CNOVon 06-24-2024 CNOV Normal [facility] CNPNon 06-24-2024 CNPN Normal [facility] CNOVon 06-23-2024 CNOV Normal [facility] ANES POSTPROC EVALon 025 ANES POSTPROC EVAL Normal [facility] ANES PRE-OPon 06-16-2024 ANES PRE-OP Normal [facility] BREAST MARKERSon 06-16-2024 AP BIOMARKER DISCLAIMER Normal [facility] Comment on above: Order Comment: Speci men Type: TISSUE SPECIMENOrdering Facility: [facility] Address: [address] [place] [address] Result Comment: Cristobal mattson Developed Test (LDT) Disclaimer:Performance characteristics of immunohistochemical, immunofluorescent and chromogenic in-situ hybridization tests have been determined by the performing laboratory within [facility]???s Edis Swann Pathology and Laboratory Medicine Department ([facility], [facility], [facility], [facility], [facility], [facility], or [facility]) in a manner consistent with CLIA requirements. One or more of these tests have not been cleared or approved by the FDA. RT-PLM is regulated under CLIA as qualified to perform high-complexity testing. These tests are used for clinical purposes. They should not be regarded as investigational or for research. Positive and negative controls stain appropriately. Performed By: #### L [id number] ####[facility] LABCLIA [id number] [place] [address] [place] AP BLOCK ID A11 Normal [facility] Comment on above: Order Comment: Speci men Type: TISSUE SPECIMENOrdering Facility: [facility] Address: [address] [place] [address] Performed By: #### L [id number] ####[facility] LABCLIA [id number] [address] [address] [place] ASCO/CAP GUIDELINES FOR FIXATION MET Yes Normal [facility] Comment on above: Order Comment: Speci men Type: TISSUE SPECIMENOrdering Facility: [facility] Address: [address] [place] [address] Performed By: #### L [id number] ####[facility] LABCLIA [id number] [address] [address] [place] BIOMARKER INTERPRETATION COMMENT AND REFERENCE RANGE Normal [facility] Comment on above: Order Comment: Speci men Type: TISSUE SPECIMENOrdering Facility: [facility] Address: [address] [place] [address] Result Comment: Refe rence Range for Hormone Receptors:Staining for DC of greater than or equal to 1% of the tumor cells is considered positive.Staining for ER of 1-10% of the tumor cells is considered low positive.Staining for ER of greater than 10% of the tumor cells is considered positive.Staining for ER or DC of less than 1% is considered negative.Reference Ranges for HER2 Immunohistochemistry:Positive (3+): Complete, intense circumferential membrane staining in greater than 10% of tumor cells.Equivocal (2+): Weak to moderate complete membrane staining observed in greater than 10% of tumor cells.Negative (1+): Incomplete, faint membrane staining in greater than 10% of tumor cells.Negative (0): No staining or incomplete faint membrane staining in less than or equal to 10% of tumor cells.Interpretation Comments:Consideration of follow-up testing for HER2 (ERBB2) status by fluorescence in situ hybridization (FISH) for all equivocal (2+) results is recommended and will be ordered as a reflex test if FISH was not a testing methodology already employed.Note for ER low results.For malignancy with a low level (1%-10%) of [...] similar to ER-negative cancers. Performed By: #### L [id number] ####[facility] LABCLIA [id number] [facility] [place] [address] [place] BIOMARKER METHOD Normal [facility] Comment on above: Order Comment: Speci men Type: TISSUE SPECIMENOrdering Facility: [facility] Address: [address] [place] [address] Result Comment: Estr ogen Receptor:Food and Drug Administration (FDA) cleared: [place], [place], [place] Antibody: [id number] Receptor:FDA cleared: [place], [place], [facility]Prdec[facility] Antibody: FY7HUE1 (ERBB2) by IHC:FDA cleared: [place], [facility] Antibody:4B5The hormone receptor tests were performed and reported in accordance with the guidelines approved by the [place] Society of Clinical Oncologists and the College of [place] Pathologists. Emma PUENTES, et al. Estrogen and Progesterone Receptor Testing in Breast Cancer: [place] Society of Clinical Oncologists and the College of [place] Pathologists Guideline Update. Arch Pathol Lab Med. 2019;144(5):545-563. PMID: [id number].The hormone receptor assays have been internally validated on decalcified tissues (for [facility] only).Estrogen and progesterone receptor results are valid if tissue was processed according to ASCO/CAP guidelines.Antibody and Detection System: [place]'s Pathway anti-HER2 rabbit monoclonal antibody (clone 4B5), [place] Confirm anti-estrogen receptor rabbit monoclonal antibody (clone SP1) and [place] anti-progesterone receptor rabbit monoclonal antibody (clone IE2) detected with the [place] UltraView Univeral DAB Detection Kit (indirect biotin-free detection), [employer], [place], [place].Control Slides: Cell line controls with high, equivocal, low, and negative HER2 protein expression, along with known positive control tissue and the patient's tissue, are evaluated for HER2 expression.The HER2 immunohistochemistry assay was developed, validated, scored, and reported in accordance with the guidelines approved by the [place] Society of Clinical Oncologists and the College of [place] Pathologists. Guerda GRAHAM et al. Arch Pathol Lab Med. 2018;1379(9)The HER2 assay has not been validated on decalcified tissues. Given the possibility of false negative results on decalcified specimens, results should be interpreted with caution. Performed By: #### L [id number] ####[facility] LABCLIA [id number] [facility] [address] [place] [address] [place] BREAST TUMOR GRADE Grade 1 Normal [facility] Comment on above: Order Comment: Speci men Type: TISSUE SPECIMENOrdering Facility: [facility] Address: [address] [place], [place] [address] Performed By: #### L [id number] ####[facility] LABCLIA [id number] [facility] [address] [place] [address] [place] [facility] CASE NUMBER INVASIVE [id number] Normal [facility] Comment on above: Order Comment: Speci men Type: TISSUE SPECIMENOrdering Facility: [facility] Address: [address] [place], [place] [address] Performed By: #### L [id number] ####[facility] LABCLIA [id number] [facility] [address] [place] [address] [place] COLD ISCHEMIA TIME <1 Hour Normal [facility] Comment on above: Order Comment: Speci men Type: TISSUE SPECIMENOrdering Facility: [facility] Address: [address] [place], [place] [address] Performed By: #### L [id number] ####[facility] LABCLIA [id number] [address] [place] [address] [place] ESTROGEN RECEPTOR (% TUMOR STAINING) 95 Normal [facility] Comment on above: Order Comment: Speci men Type: TISSUE SPECIMENOrdering Facility: [facility] Address: [address] [place] [address] Performed By: #### L [id number] ####[facility] LABCLIA [id number] [facility] [address] [place] [address] [place] ESTROGEN RECEPTOR (STAINING INTENSITY) Strong Normal [facility] Comment on above: Order Comment: Speci men Type: TISSUE SPECIMENOrdering Facility: [facility] Address: [address] [place], [place] [address] Performed By: #### L [id number] ####[facility] LABCLIA [id number] [place] [id number] [facility] [place] ESTROGEN RECEPTOR EXTERNAL CONTROL Present and Stained as Expected Normal [facility] Comment on above: Order Comment: Speci men Type: TISSUE SPECIMENOrdering Facility: [facility] Address: [address] [place], [place] [address] Performed By: #### L [id number] ####[facility] LABCLIA [id number] [address] ESTROGEN RECEPTOR INTERNAL CONTROL Present and Stained as Expected [facility] Comment on above: Order Comment: Speci men Type: TISSUE SPECIMENOrdering Facility: [facility] Address: [address] [place] [address] Performed By: #### L [id number] ####[facility] LABCLIA [id number] [place] [id number] [facility] ESTROGEN RECEPTOR STATUS (INVASIVE) Positive Normal [facility] Comment on above: Order Comment: Speci men Type: TISSUE SPECIMENOrdering Facility: [facility] Address: [address] [place] [address] Performed By: #### L [id number] ####[facility] LABCLIA [id number] [place] [id number] [place] FINAL PERFORMING LAB Normal [facility] Comment on above: Order Comment: Speci men Type: TISSUE SPECIMENOrdering Facility: [facility] Address: [address] [place], [place] [id number] Result Comment: Diag nostic interpretation performed at: [facility], [address] [place], [place] [address] CLIA# [id number] Director: Carlos Finnegan MDElectronically signed out by: Jovani Claudio MD Performed By: #### L [id number] ####[facility] LABCLIA [id number] [address] [place] [address] [place] FIXATIVE Formalin, 10% Neutra l Buffered Normal [facility] Comment on above: Order Comment: Speci men Type: TISSUE SPECIMENOrdering Facility: [facility] Address: [address] [place], [place] [id number] Performed By: #### L [id number] ####[facility] LABCLIA [id number] [address] [place] [address] [place] HER2 SCORE 2+ Normal [facility] Comment on above: Order Comment: Speci men Type: TISSUE SPECIMENOrdering Facility: [facility] Address: [address] [place] [address] Performed By: #### L [id number] ####[facility] LABCLIA [id number] [address], [facility] [place] HER2 STATUS (INVASIVE) Equivocal for HER 2 Overexpression Normal [facility] Comment on above: Order Comment: Speci men Type: TISSUE SPECIMENOrdering Facility: [facility] Address: [address] [place] [address] Performed By: #### L [id number] ####[facility] LABCLIA [id number] [address] [place] [address] [place] PROGESTERONE RECEPTOR (% TUMOR STAINING) 99 Normal [facility] Comment on above: Order Comment: Speci men Type: TISSUE SPECIMENOrdering Facility: [facility] Address: [address] [place], [place] [id number] Performed By: #### L [id number] ####[facility] LABCLIA [id number] [place] [id number] [place] PROGESTERONE RECEPTOR (STAINING INTENSITY) Strong Normal [facility] Comment on above: Order Comment: Speci men Type: TISSUE SPECIMENOrdering Facility: [facility] Address: [address] [place], [place] [id number] Performed By: #### L [id number] ####[facility] LABCLIA [id number] [address] [place] [address] [place] PROGESTERONE RECEPTOR EXTERNAL CONTROL Present and Stained as Expected Normal [facility] Comment on above: Order Comment: Speci men Type: TISSUE SPECIMENOrdering Facility: [facility] Address: [address] [place], [place] [id number] Performed By: #### L [id number] ####[facility] LABCLIA [id number] [address] [place] [address] [place] PROGESTERONE RECEPTOR INTERNAL CONTROL Present and Stained as Expected Normal [facility] Comment on above: Order Comment: Speci men Type: TISSUE SPECIMENOrdering Facility: [facility] Address: [address] [place] [address] Performed By: #### L [id number] ####[facility] LABCLIA [id number] [place] [id number] [place] PROGESTERONE RECEPTOR STATUS (INVASIVE) Positive Normal [facility] Comment on above: Order Comment: Speci men Type: TISSUE SPECIMENOrdering Facility: [facility] Address: [address] [place] [address] Performed By: #### L [id number] ####[facility] LABCLIA [id number] [address], [facility] [place] TOTAL FIXATION TIME >6 and <72 Hours Normal [facility] Comment on above: Order Comment: Speci men Type: TISSUE SPECIMENOrdering Facility: [facility] Address: [address] [place], [place] [id number] Performed By: #### L [id number] ####[facility] LABCLIA [id number] [place] [id number] [place] TUMOR TYPE (INVASIVE) Primary Invasive B reast Carcinoma Normal [facility] Comment on above: Order Comment: Speci men Type: TISSUE SPECIMENOrdering Facility: [facility] Address: [address] [place], [place] [id number] Performed By: #### L [id number] ####[facility] LABCLIA [id number] [place] [id number] [place] UNIFORM INTENSE COMPLETE MEMBRANE STAINING <1 Normal [facility] Comment on above: Order Comment: Lacey castellanos Type: TISSUE SPECIMENOrdering Facility: [facility] Address: [address] [place] [address] Performed By: #### L [id number] ####[facility] LABCLIA [id number] [address] [place] WAS SPECIMEN DECALCIFIED No Normal [facility] Comment on above: Order Comment: Lacey castellanos Type: TISSUE SPECIMENOrdering Facility: [facility] Address: [address] [place] [address] Performed By: #### L [id number] ####[facility] LABCLIA [id number] [address] [place] BRIEF OP NOTon 06-16-2024 BRIEF OP NOT Normal [facility] FISH FOR HER-2on 06-16-2024 FISH FOR HER-2 FISH for HER2 Normal [facility] Comment on above: Order Comment: Lacey castellanos Type: TISSUE SPECIMENOrdering Facility: [facility] Address: [address] [place] [address] Result Comment: Cristobal mattson Accession Number: [id number]: [id number]/Part ID: [id number] Type: FFPETSample Description: RIGHT BREAST, MASTECTOMY, invasive carcinomaReceived Date: 06/22/2024Integrated Final HER2 (ERBB2) Status Based on ASCO/CAP 2018 Updatedguidelines: NEGATIVE (please see comment)INTERPRETATION:The previously reported HER2 immunohistochemistry (IHC) was equivocal(2+) and fluorescence in situ hybridization (FISH) for HER2 (ERBB2)was performed on the same tissue block which identified the followingsignal pattern:HER2 (ERBB2)/CEP17 ratio < 2.0 with an average HER2 (ERBB2) signaltumor cell of >/= 4.0 and < 6.0.It is uncertain whether patients with >/= to 4.0 and <6.0 average HER2(ERBB2) signals/cell and HER2 (ERBB2)/CEP17 ratio <2.0 benefit fromHER2 targeted therapy in the absence of protein overexpression (IHC3+). If the specimen test result is close to the threshold forpositive, there is a higher likelihood that repeat testing will resultin different results by chance alone. Therefore, when IHC results arenot 3+ positive, it is recommended that the sample be considered ABY2qztpvisl without additional testing on the same specimen. In thisscenario, clinical correlation with other patient factors, pathologicfeatures of the patient's cancer (such as ER expression and tumorgrade) and test results from other specimens may be used whenselecting appropriate treatments, including chemotherapy and BPD2uulxehlue therapies.HER2 (ERBB2) FISH Result:Number of cells counted: 60Number of observers: 3Average HER2 (ERBB2) signal copy number per cell: 4.7Average CEP17 signal copy number per cell: 3.5HER2 (ERBB2)/CEP17 ratio: 1.3Fixative: 10% neutral buffered formalinFixation Time: >6 and <72 hoursCold Ischemic time: >1 hour,Meets ASCO/CAP guidelines for fixative and fixation times: noThese results should be interpreted with caution if the above pre-analytical values do not meet the ASCO/CAP guidelines for tissuefixation and handling. Tissue sections for HER2 (ERBB2) analysisshould not be used if cut > 6 weeks prior to testing.Reference ranges (2018 ASCO/CAP guidelines):HER2 (ERBB2) non amplified: HER2(ERBB2)/ CEP 17 ratio < 2.0 with <4.0HER2 (ERBB2) signals/cell (Group 5)HER2 (ERBB2) amplified: HER2(ERBB2)/ CEP 17 ratio is >/= 2.0 with >/=4.0 HER2 (ERBB2) signals/cell (Group 1)If the HER2 (ERBB2)/CEP17 ratio >/= 2.0 with average HER2 (ERBB2) <4.0signals/cell (Group 2), or HER2 (ERBB2)/CEP17 ratio < 2.0 with >/= 6.0HER2 (ERBB2) signals/cell (Group 3) or HER2 (ERBB2)/CEP17 ratio <2.0with HER2 (ERBB2) >/= 4.0 and < 6.0 signals/cell (Group 4), adefinitive diagnosis will be rendered incorporating the RCP0nokdjtwyeomcrqspnsvl (IHC) concomitant work up.For groups 2 and 4, if the IHC result is 3+, the case is consideredHER2 positive. If the IHC result is 0 to 1+, the case is consideredHER2 negative. If the IHC is 2+, an additional 20 cells are counted inthe FISH assay by an additional observer, blinded to the pervious FISHresult, ensuring that the area counted includes the area of invasivecarcinoma that was IHC 2+. If reviewing the additional count remainswithin Groups 2 or 4, then the case is considered negative with acomment. If reviewing the additional count results in a different FISHcategory, the result is adjudicated per laboratory protocol.For group 3, if the IHC result is 3+, the case is considered NNH1rbqqjphc. If the IHC result is 0 or 1+, the case is considered LDC7zefkjlux. If the IHC is 2+, an additional 20 cells are counted in theFISH assay by an additional observer, blinded to the previous FISHresult, ensuring that the area counted includes the area of invasivecarcinoma that was IHC 2+. If reviewing the additional count remainswithin Group 3, then the case is considered positive. If reviewing theadditional count results in a different FISH category, the result isadjudicated per laboratory protocol.Nomenclature: nuc brunilda(E12X9d9~5,XYHG2h4~6)[]METHODOLOGY:HER2 (ERBB2) gene amplification was manually evaluated on paraffin-embedded tissue by interphase fluorescence in situ hybridization(FISH), using a dual color probe set for the HER2 (ERBB2) locus or34h31 and the centromeric region of chromosome 17 ([employer]; [employer],[place], [place]). The Molecular Pathology and CytogenomicsLaboratory of the [facility] has validated modifications of thePathVysion kit used for the testing, including the use of TargetRetrieval Solution and Proteinase K (Dako ([employer]); [place]) forcell conditioning, and modified probe/target denaturation andhybridization conditions for the assay. Internal and external(amplified and non-amplified) controls are evaluated. The in situhybridization analysis was performed and correlated with preselectedareas of invasive carcinoma deemed adequate for analysis by apathologist.The HER2 (ERBB2) assay was developed, validated, and reported inaccordance with guidelines published by the [place] Society ofClinical Oncology (ASCO) and the College of [place] Pathologists(CAP) (Guerda GRAHAM, et al. J Clin Oncol. 2018. PMID: 48869011); and,Recommendations for Human Epidermal Growth Factor Receptor 2 Testingin Breast Cancer: [place] Society of Clinical Oncology/College ofAmerican Pathologists Clinical Practice Guideline Focused Update(2018).The assay has been validated on tissues decalcified in EDTA only. Aswith all decalcified specimens, the results should be interpreted withcaution given the likelihood of false negativity on these specimens.Negative results should, therefore, be interpreted with caution forspecimens not meeting the ASCO/CAP guidelines.DISCLAIMER:This test was developed and its performance characteristics determinedby [facility]'s Pathology and Laboratory Medicine Department. Ithas not been cleared or approved by the FDA. [facility]'sPathology and Laboratory Medicine Department is regulated under CLIAas qualified to perform high-complexity testing. This test is used forclinical purposes. It should not be regarded as investigational or forresearch.Test performed at [facility], [address] [place] [address]. CLIA Number: [id number] performed by Dain Canales MD Performed By: #### H ER2F ####[facility] LIMSCLIA [id number] [place] [address] [place] OPERATIVE NOon 06-16-2024 OPERATIVE NO Normal [facility] OPERATIVE NO Normal [facility] Pathology biopsy report Daniel (Tiss)on 06-16-2024 AP DISCLAIMER Normal [facility] Comment on above: Order Comment: Speci men Type: TISSUE SPECIMENOrdering Facility: [facility] Address: [address] [place] [address] Result Comment: Cristobal mattson Developed Test (LDT) Disclaimer:Performance characteristics of immunohistochemical, immunofluorescent, and chromogenic in-situ hybridization tests have been determined by the performing laboratory within [facility]'s Edis Mcdaniels Pathology and Laboratory Medicine Department ([facility], [facility], [facility], [facility], [facility], [facility], or [facility]) in a manner consistent with CLIA requirements. One or more of these tests may not have been cleared or approved by the FDA. [facility] is regulated under CLIA as qualified to perform high-complexity testing. These tests are used for clinical purposes. These should not be regarded as investigational or for research. Positive and negative controls stain appropriately. Performed By: #### 6 6121-5 ####[facility] LABCLIA [id number] [address] BLOCK FOR ADDITIONAL BIOMARKERS/MOLECULAR STUDIES A11 Normal [facility] Comment on above: Order Comment: Speci men Type: TISSUE SPECIMENOrdering Facility: [facility] Address: [address] [place] [address] Performed By: #### 6 6121-5 ####[facility] LABIA [id number] [address] [place] CASE REPORT Normal [facility] Comment on above: Order Comment: Speci men Type: TISSUE SPECIMENOrdering Facility: [facility] Address: [address] [place] [address] Result Comment: Surg ical Pathology Report Case: [id number] Provider: Pradeep Taylor MD Collected: 06/16/2024 01:12 PMOrdering Location: Admitting Received: 06/16/2024 01:54 PMPathologist: Jovani Claudio MDSpecimens: A) - Breast, Right, Mastectomy, stitch eller one long lateral one short superior and nipple anterior B) - Lymph Node, Right, [place], #1 right axillary sentinel lymph node hot not blue #40,000 C) - Lymph Node, Right, [place], #2 right axillary sentinel lymph node not hot not blue palpable D) - Breast, Left, Mastectomy, stitch eller one long lateral one short superior and nipple anterior E) - Adipose Tissue, right areolar breast skin from right breast mastectomy Performed By: #### 6 6121-5 ####[facility] LABCLIA [id number] [address], [address] CLINICAL HISTORY Normal [facility] Comment on above: Order Comment: Speci men Type: TISSUE SPECIMENOrdering Facility: [facility] Address: [address] [place] [address] Result Comment: Pre- op diagnosis: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 B reast biomarkers (ER, PgR, and HER2) are pending, the results of which will be reported separately.II. Immunohistochemical stain AE1/3 was performed and highlights isolated tumor cells, supportive of the above interpretation.III. Immunohistochemical stain for AE1/3 was performed and is negative, supportive of the above interpretation.Select slides of this case were reviewed with Dr Darrius Buckley of the [facility] Breast Pathology Service, who concurs with the above diagnosis of invasive carcinoma and margin assessment for Part A.The results of this case were discussed with Dr Pradeep Taylor of the [facility] Department of General Surgery via telephone on 06/22/2024 at 1339.[facility] 06/22/24 Performed By: #### 6 6121-5 ####[facility] [id number] [address] OF [facility] FINAL DIAGNOSIS Normal [facility] Comment on above: Order Comment: Speci men Type: TISSUE SPECIMENOrdering Facility: [facility] Address: [address] [place] [address] Result Comment: A. R ight breast, mastectomy:- Invasive ductal carcinoma, North grade I, measuring 3 mm in greatest dimension (please see synoptic report and Comment I).- Ductal carcinoma in-situ (DCIS), cribriform and papillary types, of intermediate nuclear grade.- Atypical ductal hyperplasia (ADH).- Microcalcifications in DCIS.- Biopsy site changes and biopsy clips (x3) identified.- Multiple levels examined.B. Right axillary sentinel lymph node #1, hot not blue, #40,000:- Isolated tumor cells in one of one lymph node examined.- Please see Comment II.C. Right axillary sentinel lymph node #2, not hot not blue, palpable:- One lymph node; negative for metastatic carcinoma (0/1).- Please see Comment III.D. Left breast, mastectomy:- Unremarkable breast tissue and skin.E. Right areolar skin from right breast mastectomy, adipose tissue:- Skin with intradermal nevus.[facility] 06/22/24 at 1347 EDT Performed By: #### 6 6121-5 ####[facility] LABCLIA [id number] [place] [address] [place] FINAL PERFORMING LAB Normal [facility] Comment on above: Order Comment: Speci men Type: TISSUE SPECIMENOrdering Facility: [facility] Address: [address] [place] [address] Result Comment: Diag nostic interpretation performed at: [facility], [address] [place] [address] CLIA# [id number] Director: Carlos Finnegan MD Performed By: #### 6 6121-5 ####[facility] LABCLIA [id number] [address] [place] GROSS DESCRIPTION Normal [facility] Comment on above: Order Comment: Speci men Type: TISSUE SPECIMENOrdering Facility: [facility] Address: [address] [place] [address] Result Comment: Ani Reza reast, Right, MastectomyReceived in formalin labeled breast mastectomy right is [...] is serially sectioned into 14 slices to reveal:Buckle clip biopsy site #1: Red hemorrhagic biopsy [...] deep margin, and 9.0 cm from the nipple.Stop light biopsy site #2: Hemorrhagic biopsy site [...] nipple, and 5.0 cm from biopsy site #1.Q shaped biopsy site #3: Q clip embedded in unremarkable fibrofatty tissue, within slice 7. The clip is situated at 9:00 in the upper outer quadrant. The lesion is located 0.4 cm from the radial margin, 6.0 cm from the deep margin, 0.5 cm from the nipple, and 0.5 cm from biopsy site #2.The remaining breast parenchyma is soft adipose tissue with dense fibrous tissue(5%).[employer] sections are submitted as follows:A1-A6 biopsy site #1 with associated buckle clip in upper outer quadrant; consecutive sections along the longest linear dimension from lateral to medial:A1 slice 5 with radial marginA2-A4 slice 6 with radial marginA5-slice 7 nonmarginalA6-slice 6 with nearest deep marginA7-slice 8 intervening parenchyma between biopsy site #1 and #0D9-Y52 biopsy site #2 with associated stoplight clip in upper mid quadrant; consecutive sections along the longest linear dimension from lateral to medial: A8-A11 slice 7with radial margin A12-A14 slice 8 with radial margin Q52-rmteg 9 mid upper quadrant nearest deep ijxeghE75-ausbbsukpvf parenchyma between biopsy site #2 and biopsy site #3Biopsy site #3 with associated Q clip and upper outer quadrant; consecutive sections along the longest linear dimension from lateral to medial: A17-A18 with radial margin and dyrwH96-jkocdqb flank and sectioned to biopsy site #1 with radial mqdgcgH73-cfbqb 8 medial flanking section 2 biopsy clip #1 with radial ltvnuhM85-gedja 6 lateral flanking section of biopsy site #2 with radial bkaqkgH78-hugdh 9 medial flanking section 2 biopsy site #2 with radial qpqnnzI55-ptgji 6 lower inner quadrant with radial tmulbxI10-fcrry 12 lower inner quadrant with radial yynjcrZ04-wsxfj 11 upper inner quadrant with radial wxlzipW60-rbmcy 8 lower outer quadrant with inferior cyhlumA86-L35 slice 8 nipple totally submittedThe specimen was removed from the patient at 12:48 PM on 06/16/2024 and placed in formalin at 3:14 PM.Gross examination performed at [facility], [address] [place] [id number] June 17, 2024 10:30 AMB. Lymph Node, Right, SentinelReceived in formalin labeled right axillary sentinel lymph node is irregular-shaped segment yellow fibrofatty tissue measuring 2.5 x 2.0 x 0.5 cm. Palpation reveals a 1 brown firm nodule, resembling a lymph node, measuring 2.0 cm in greatest dimension. The specimen is totally submitted in formalin as follows:B1-lymph node serially sectionedB2-surrounding adipose tissueThe specimen was removed from the patient at 1312 hrs. on 06/16/2024 and placed in formalin at 1514 hrs.Gross examination performed at [facility], [address] [place] [id number] June 17, 2024 8:46 AMC. Lymph Node, Right, SentinelReceived in formalin labeled right axillary sentinel lymph node #2 is an irregular shaped segment of yellow fibrofatty tissue measuring 2.5 x 2.0 x 1.0 cm. Palpation reveals 1 pink firm nodule, resembling a lymph node, measuring 2.5 cm in greatest dimension. The specimen is serially sectioned and totally submitted as follows:C1-C2 solitary lymph nodeC3-surrounding adipose tissueD. Breast, Left, MastectomyReceived in formalin labeled left breast mastectomy is an oriented left simple mastectomy specimen weighing 442 g and hgamhbzas87.2 (superior-inferior) x 15 (medial-lateral) x 3.4 (anterior posterior). The specimen is oriented perthe requisition as short suture eller the superior margin and a long suture eller the lateral margin. There are no segments ofmuscle. There is an unremarkable attached ellipse of skin that measures 6.4 x 2.4 cm. The unremarkable nipple-areolar complex measures 1.7 cm. TheEverted nipple measures 1 x 1 x 0.9 cm. The specimen is imaged in pathology to revealThat there are no biopsy clips present. The superior radial margin is inked blue, the inferior radial margin is inked green, and the deep margin is inked black. The breast is serially sectioned from medial to lateral to reveal tee-yellow rubbery lobulated and fibrous cut surfaces. No masses or lesions are identified.[employer] sections are submitted as follows:D1: Upper inner quadrant with upper radial marginD2: Upper inner quadrant nonmarginalD3: Upper outer quadrant with deep marginD4: Upper outer quadrant nonmarginalD5: Lower outer quadrant with lower radial marginD6: Lower outer quadrant nonmarginalD7-D8: Lower inner quadrant nonmarginalD9: Skin with nippleWE June 16, 2024 3:27 PMGross examination performed at [facility], [address] [place], [place] [address]E. Adipose TissueReceived fresh labeled right areolar breast skin from right breast mastectomy are two segments of tee-pink, wrinkled skin aggregating to 5.5 x 0.7 x 0.4 cm. There are no lesions on the skin surface. The specimen is sectioned and entirely submitted in cassette E1.HMDayana 06/16/24 3:14 PMGross examination performed at [place] [address] [place] [address] Performed By: #### 6 6121-5 ####[facility] LABCLIA [id number] [place] [address] [place] SYNOPTIC REPORT Normal [facility] Comment on above: Order Comment: Speci men Type: TISSUE SPECIMENOrdering Facility: [facility] Address: [facility] [place] [address] Result Comment: RODRICK RAYMUNDO CARCINOMA OF THE BREAST: ResectionINVASIVE CARCINOMA OF THE BREAST: RESECTION - All Faciiurkh2zd Edition - Protocol posted: 08/13/2023SPECIMEN Procedure: Total mastectomy Specimen Laterality: RightTUMOR Histologic Type: Invasive carcinoma of no special [...] Effect in the Breast: No known presurgical therapyMARGINS Margin Status for Invasive Carcinoma: All margins negative for invasive carcinoma Distance from Invasive Carcinoma to Closest Margin: Greater than: 2 mm Margin Status for DCIS: DCIS present at margin Margin(s) Involved by DCIS: Superior: 12:00 near stoplight clip site; multifocal; <1 mm each in spanREGIONAL LYMPH NODES Regional Lymph Node Status: : Tumor present in regional lymph node(s) Number of Lymph Nodes with Macrometastases: 0 Number of Lymph Nodes with Micrometastases: 0 Number of Lymph Nodes with Isolated Tumor Cells: 1 Size of Largest Chloe Metastatic Deposit: 0.1 mm Extranodal Extension: Not identified Total Number of Lymph Nodes Examined (sentinel and non-sentinel): 2 Number of [place] Nodes Examined: 2pTNM CLASSIFICATION (AJCC 8th Edition) Reporting of pT, [...] (i+) N Suffix: (sn) Performed By: #### 6 6121-5 ####[facility] LABCLIA [id number] [place] [address] [place] ECG COMPLETEon 06-15-2024 ECG COMPLETE Normal [facility] HISTORY PHYSICALon HISTORY PHYSICAL Normal [facility] NM INJ SENT NODE BREAST RTon 06-15-2024 NM INJ SENT NODE BREAST RT Normal [facility] NM Lymph node Viewson 2024 IMPRESSION: NO SENTINEL LYMPH NODES IDENTIFIED Top Frame Fitter: DIMITRI Transcribe Date/Time: Jun 15 2024 1:42P Dictated by : STAS SIBLEY MD This examination was interpreted and the report reviewed and electronically signed by: STAS SIBLEY MD on Jun 15 2024 1:47PM [facility] DIVISION OF RADIOLOGY * * *Final Report* * * DATE OF EXAM: Jun 15 2024 1:41PM [facility] 2190 - [place] INJ SENT NODE BREAST RT / PROCEDURE REASON: multiple diagnoses * * * * Physician Interpretation * * * * BREAST LYMPHOSCINTIGRAPHY CLINICAL HISTORY: breast cancer. TECHNIQUE: Patient was identified using two identifiers. Verification of the side of breast cancer was confirmed with the patient and performed in conjunction with the assisting technologist as well as [facility] documentation. Patient medications and drug allergies were reviewed. 3.1 mCi of filtered technetium 99m sulfur colloid was injected in the right breast periareolar region. Initial dynamic imaging followed by planar static images of the chest and axillae were obtained RESULT: No Discrete foci of radiopharmaceutical accumulation are identified. DIVISION OF RADIOLOGY Provider, [facility] - 06/15/2024 * * *Final Report* * * DATE OF EXAM: Jun 15 2024 1:41PM [facility] 2190 - NM INJ SENT NODE BREAST [...] IMPRESSION IMPRESSION: NO SENTINEL LYMPH NODES IDENTIFIED Top Frame Fitter: DIMITRI Transcribe Date/Time: Jun 15 2024 1:42P Dictated by : STAS SIBLEY MD This examination was interpreted and the report reviewed and electronically signed by: STAS SIBLEY MD on Jun 15 2024 1:47PM EST [facility] Radiology Study observation (narrative) [facility] NM Lymph node ViewsOrdered B y: Ccf Provider on 06-15-2024 [facility] CNPN Normal [facility] CNOVon 06-03-2024 CNOV Normal [facility] CNPNon 06-01-2024 CNPN Normal [facility] CBC W Auto Differential pane l (Bld)on 05-31-2024 Basophils (Bld) [#/Vol] 0.04 10*3/uL [facility] Basophils/100 WBC (Bld) 0.5 % [facility] Differential cell count method Nom (Bld) Auto [facility] Eosinophils (Bld) [#/Vol] 0.07 10*3/uL [facility] Eosinophils/100 WBC (Bld) 0.9 % [facility] Erythrocyte distribution width (RBC) [Ratio] 12.4 % 11.5 - 15.0 % [facility] Hematocrit (Bld) [Volume fraction] 44 % 36.0 - 46.0 % [facility] Hemoglobin (Bld) [Mass/Vol] 14.5 g/dL 11.5 - 15.5 g/dL [facility] Immature granulocytes (Bld) [#/Vol] [facility] Immature granulocytes/100 WBC (Bld) 0.3 % [facility] Lymphocytes (Bld) [#/Vol] 2.26 10*3/uL [facility] Lymphocytes/100 WBC (Bld) 30.3 % [facility] MCH (RBC) [Entitic mass] 30.1 pg 26.0 - 34.0 pg [facility] MCHC (RBC) [Mass/Vol] 33 g/dL 30.5 - 36.0 g/dL [facility] MCV (RBC) [Entitic vol] 91.5 fL 80.0 - 100.0 fL [facility] Monocytes (Bld) [#/Vol] 0.4 10*3/uL [facility] Monocytes/100 WBC (Bld) 5.4 % [facility] Neutrophils (Bld) [#/Vol] 4.66 10*3/uL [facility] Neutrophils/100 WBC (Bld) 62.6 % [facility] Nucleated RBC (Bld) [#/Vol] NINF [facility] Nucleated RBC/100 WBC (Bld) [Ratio] 0 % /100 WBC [facility] Platelet mean volume (Bld) [Entitic vol] 9.5 fL 9.0 - 12.7 fL [facility] Platelets (Bld) [#/Vol] 322 10*3/uL [facility] RBC (Bld) [#/Vol] 4.81 10*6/uL 3.90 - 5.2 0 m/uL [facility] WBC (Bld) [#/Vol] 7.45 10*3/uL [facility] Basophils (Bld) [#/Vol] 0.04 10*3/uL Normal <0.11 [facility] Comment on above: Order Comment: Speci men Type: BLOOD SPECIMENOrdering Facility: [facility] Address: [address] [place] [address] Performed By: #### 5 7021-8 ####[facility] [id number] [place] [address] [place] Basophils/100 WBC (Bld) 0.5 % Normal [facility] Comment on above: Order Comment: Speci men Type: BLOOD SPECIMENOrdering Facility: [facility] Address: [address] [place] [address] Performed By: #### 5 7021-8 ####[facility] [id number] [place] [address] [place] Differential cell count method Nom (Bld) Auto Normal [facility] Comment on above: Order Comment: Speci men Type: BLOOD SPECIMENOrdering Facility: [facility] Address: [address] [place] [address] Performed By: #### 5 7021-8 ####[facility] [id number] [place] [address] [place] Eosinophils (Bld) [#/Vol] 0.07 10*3/uL Normal <0.46 [facility] Comment on above: Order Comment: Speci men Type: BLOOD SPECIMENOrdering Facility: [facility] Address: [address] [place] [address] Performed By: #### 5 7021-8 ####[facility] [id number] [place] [address] [place] Eosinophils/100 WBC (Bld) 0.9 % Normal [facility] Comment on above: Order Comment: Speci men Type: BLOOD SPECIMENOrdering Facility: [facility] Address: [address] [place] [address] Performed By: #### 5 7021-8 ####[facility] [id number] [place] [address] [place] Erythrocyte distribution width (RBC) [Ratio] 12.4 % Normal 11.5-15.0 [facility] Comment on above: Order Comment: Speci men Type: BLOOD SPECIMENOrdering Facility: [facility] Address: [address] [place] [address] Performed By: #### 5 7021-8 ####[facility] [id number] [place] [address] [place] Hematocrit (Bld) [Volume fraction] 44.0 % Normal 36.0-46.0 [facility] Comment on above: Order Comment: Speci men Type: BLOOD SPECIMENOrdering Facility: [facility] Address: [address] [place] [address] Performed By: #### 5 7021-8 ####[facility] [id number] [place] [address] [place] Hemoglobin (Bld) [Mass/Vol] 14.5 g/dL Normal 11.5-15.5 [facility] Comment on above: Order Comment: Speci men Type: BLOOD SPECIMENOrdering Facility: [facility] Address: [address] [place] [address] Performed By: #### 5 7021-8 ####[facility] [id number] [place] [address] [place] Immature granulocytes (Bld) [#/Vol] 10*3/uL Normal <0.10 [facility] Comment on above: Order Comment: Speci men Type: BLOOD SPECIMENOrdering Facility: [facility] Address: [address] [place] [address] Performed By: #### 5 7021-8 ####[facility] [id number] [place] [address] [place] Immature granulocytes/100 WBC (Bld) 0.3 % Normal [facility] Comment on above: Order Comment: Speci men Type: BLOOD SPECIMENOrdering Facility: [facility] Address: [address] [place] [address] Performed By: #### 5 7021-8 ####[facility] [id number] [place] [address] [place] Lymphocytes (Bld) [#/Vol] 2.26 10*3/uL Normal 1.00-4.00 [facility] Comment on above: Order Comment: Speci men Type: BLOOD SPECIMENOrdering Facility: [facility] Address: [address] [place] [address] Performed By: #### 5 7021-8 ####[facility] [id number] [place] [address] [place] Lymphocytes/100 WBC (Bld) 30.3 % Normal [facility] Comment on above: Order Comment: Speci men Type: BLOOD SPECIMENOrdering Facility: [facility] Address: [address] [place] [address] Performed By: #### 5 7021-8 ####[facility] [id number] [place] [address] [place] MCH (RBC) [Entitic mass] 30.1 pg Normal 26.0-34.0 [facility] Comment on above: Order Comment: Speci men Type: BLOOD SPECIMENOrdering Facility: [facility] Address: [address] [place] [address] Performed By: #### 5 7021-8 ####[facility] [id number] [place] [address] [place] MCHC (RBC) [Mass/Vol] 33.0 g/dL Normal 30.5-36.0 [facility] Comment on above: Order Comment: Speci men Type: BLOOD SPECIMENOrdering Facility: [facility] Address: [address] [place] [address] Performed By: #### 5 7021-8 ####[facility] [id number] [place] [address] [place] MCV (RBC) [Entitic vol] 91.5 fL Normal 80.0-100.0 [facility] Comment on above: Order Comment: Speci men Type: BLOOD SPECIMENOrdering Facility: [facility] Address: [address] [place] [address] Performed By: #### 5 7021-8 ####[facility] [id number] [place] [address] [place] Monocytes (Bld) [#/Vol] 0.40 10*3/uL Normal <0.87 [facility] Comment on above: Order Comment: Speci men Type: BLOOD SPECIMENOrdering Facility: [facility] Address: [address] [place] [address] Performed By: #### 5 7021-8 ####[facility] [id number] [place] [address] [place] Monocytes/100 WBC (Bld) 5.4 % Normal [facility] Comment on above: Order Comment: Speci men Type: BLOOD SPECIMENOrdering Facility: [facility] Address: [address] [place] [address] Performed By: #### 5 7021-8 ####[facility] [id number] [place] [address] [place] Neutrophils (Bld) [#/Vol] 4.66 10*3/uL Normal 1.45-7.50 [facility] Comment on above: Order Comment: Speci men Type: BLOOD SPECIMENOrdering Facility: [facility] Address: [address] [place] [address] Performed By: #### 5 7021-8 ####[facility] [id number] [place] [address] [place] Neutrophils/100 WBC (Bld) 62.6 % Normal [facility] Comment on above: Order Comment: Speci men Type: BLOOD SPECIMENOrdering Facility: [facility] Address: [address] [place] [address] Performed By: #### 5 7021-8 ####[facility] [id number] [place] [address] [place] Nucleated RBC (Bld) [#/Vol] 10*3/uL Normal <0.01 [facility] Comment on above: Order Comment: Speci men Type: BLOOD SPECIMENOrdering Facility: [facility] Address: [address] [place] [address] Performed By: #### 5 7021-8 ####[facility] [id number] [place] [address] [place] Nucleated RBC/100 WBC (Bld) [Ratio] 0.0 /100 WBC Normal [facility] Comment on above: Order Comment: Speci men Type: BLOOD SPECIMENOrdering Facility: [facility] Address: [address] [place] [address] Performed By: #### 5 7021-8 ####[facility] [id number] [place] [address] [place] Platelet mean volume (Bld) [Entitic vol] 9.5 fL Normal 9.0-12.7 [facility] Comment on above: Order Comment: Speci men Type: BLOOD SPECIMENOrdering Facility: [facility] Address: [address] [place] [address] Performed By: #### 5 7021-8 ####[facility] [id number] [place] [address] [place] Platelets (Bld) [#/Vol] 322 10*3/uL Normal 150-400 [facility] Comment on above: Order Comment: Speci men Type: BLOOD SPECIMENOrdering Facility: [facility] Address: [address] [place] [address] Performed By: #### 5 7021-8 ####[facility] [id number] [place] [address] [place] RBC (Bld) [#/Vol] 4.81 10*6/uL Normal 3.90-5.20 [facility] Comment on above: Order Comment: Speci men Type: BLOOD SPECIMENOrdering Facility: [facility] Address: [address] [place] [address] Performed By: #### 5 7021-8 ####[facility] [id number] [place] [address] [place] WBC (Bld) [#/Vol] 7.45 10*3/uL Normal 3.70-11.00 [facility] Comment on above: Order Comment: Speci men Type: BLOOD SPECIMENOrdering Facility: [facility] Address: [address] [place] [address] Performed By: #### 5 7021-8 ####[facility] [id number] [place] [address] [place] CNCNPATEDon 05-31-2024 CNCNPATED Normal [facility] CNOVon 05-31-2024 CNOV Normal [facility] CNPNon 05-31-2024 CNPN Normal [facility] Comprehensive metabolic 2000 panelon 05-31-2024 Albumin [Mass/Vol] 4.5 g/dL 3.9 - 4.9 g/dL [facility] ALP [Catalytic activity/Vol] 78 U/L 34 - 123 U/L [facility] ALT [Catalytic activity/Vol] 13 U/L 7 - 38 U/L [facility] Anion gap [Moles/Vol] 10 mmol/L 8 - 15 mmol/L [facility] AST [Catalytic activity/Vol] 15 U/L 13 - 35 U/L [facility] Bilirubin [Mass/Vol] 0.8 mg/dL 0.2 - 1 .3 mg/dL [facility] Calcium [Mass/Vol] 9.4 mg/dL 8.5 - 10. 2 mg/dL [facility] Chloride [Moles/Vol] 103 mmol/L 98 - 10 7 mmol/L [facility] CO2 [Moles/Vol] 25 mmol/L 22 - 30 mmol/L [facility] Creatinine [Mass/Vol] 0.78 mg/dL 0.58 - 0.96 mg/dL [facility] GFR/1.73 sq M.predicted among non-blacks MDRD (S/P/Bld) [Vol rate/Area] 96 mL/min/{1.73_m2} - PINF [facility] Comment on above: Estimated Glomerular Filtration Rate [...] [Mass/Vol] 90 mg/dL 74 - 99 mg/dL [facility] Comment on above: The [place] Diabete s Association (ADA) provides guidance for [...] Standards of Medical Care in Diabetes 2016, [place] [employer] Association. Diabetes Care. 2016.39(Suppl 1). Interpretation and review of laboratory results Normal [facility] Potassium [Moles/Vol] 4.5 mmol/L 3.7 - 5.1 mmol/L [facility] Protein [Mass/Vol] 6.8 g/dL 6.3 - 8.0 g/dL [facility] Sodium [Moles/Vol] 138 mmol/L 136 - 144 mmol/L [facility] Urea nitrogen [Mass/Vol] 10 mg/dL 7 - 21 mg/dL [facility] Albumin [Mass/Vol] 4.5 g/dL Normal 3.9-4.9 [facility] Comment on above: Order Comment: Speci men Type: BLOOD SPECIMENOrdering Facility: [facility] Address: [address] [place] [address] Performed By: #### 2 4323-8 ####[facility] [id number] [place] [address] [place] ALP [Catalytic activity/Vol] 78 U/L Normal 34-123 [facility] Comment on above: Order Comment: Speci men Type: BLOOD SPECIMENOrdering Facility: [facility] Address: [address] [place] [address] Performed By: #### 2 4323-8 ####[facility] [id number] [place] [address] [place] ALT [Catalytic activity/Vol] 13 U/L Normal 7-38 [facility] Comment on above: Order Comment: Speci men Type: BLOOD SPECIMENOrdering Facility: [facility] Address: [address] [place] [address] Performed By: #### 2 4323-8 ####[facility] [id number] [place] [address] [place] Anion gap [Moles/Vol] 10 mmol/L Normal 8-15 [facility] Comment on above: Order Comment: Speci men Type: BLOOD SPECIMENOrdering Facility: [facility] Address: [address] [place] [address] Performed By: #### 2 4323-8 ####[facility] [id number] [place] [address] [place] AST [Catalytic activity/Vol] 15 U/L Normal 13-35 [facility] Comment on above: Order Comment: Speci men Type: BLOOD SPECIMENOrdering Facility: [facility] Address: [address] [place] [address] Performed By: #### 2 4323-8 ####[facility] [id number] [place] [address] [place] Bilirubin [Mass/Vol] 0.8 mg/dL Normal 0.2-1.3 [facility] Comment on above: Order Comment: Speci men Type: BLOOD SPECIMENOrdering Facility: [facility] Address: [address] [place] [address] Performed By: #### 2 4323-8 ####[facility] [id number] [place] [address] [place] Calcium [Mass/Vol] 9.4 mg/dL Normal 8.5-10.2 [facility] Comment on above: Order Comment: Speci men Type: BLOOD SPECIMENOrdering Facility: [facility] Address: [address] [place] [address] Performed By: #### 2 4323-8 ####[facility] [id number] [place] [address] [place] Chloride [Moles/Vol] 103 mmol/L Normal 98-107 [facility] Comment on above: Order Comment: Speci men Type: BLOOD SPECIMENOrdering Facility: [facility] Address: [address] [place] [address] Performed By: #### 2 4323-8 ####[facility] [id number] [place] [address] [place] CO2 [Moles/Vol] 25 mmol/L Normal 22-30 [facility] Comment on above: Order Comment: Speci men Type: BLOOD SPECIMENOrdering Facility: [facility] Address: [address] [place] [address] Performed By: #### 2 4323-8 ####[facility] [id number] [place] [address] [place] Creatinine [Mass/Vol] 0.78 mg/dL Normal 0.58-0.96 [facility] Comment on above: Order Comment: Speci men Type: BLOOD SPECIMENOrdering Facility: [facility] Address: [address] [place] [address] Performed By: #### 2 4323-8 ####[facility] [id number] [address] [facility] Creatinine and Glomerular filtration rate.predicted panel (S/P/Bld) 96 mL/min/1.73m??? Normal >=60 [facility] Comment on above: Order Comment: Speci men Type: BLOOD SPECIMENOrdering Facility: [facility] Address: [address] [place] [address] Result Comment: Apryl mated Glomerular Filtration Rate [...] actual GFR. Performed By: #### 2 4323-8 ####[facility] [id number] [place] [address] [place] Glucose [Mass/Vol] 90 mg/dL Normal 74-99 [facility] Comment on above: Order Comment: Speci men Type: BLOOD SPECIMENOrdering Facility: [facility] Address: [address] [place] [address] Result Comment: The [place] Diabetes Association (ADA) provides guidance for cutoff values for fasting glucose and random glucose. The ADA defines fasting as no caloric intake for at least 8 hours. Fasting plasma glucose results between 100 to 125 mg/dL indicate increased risk for diabetes (prediabetes).Fasting plasma glucose results greater than or equal to 126 mg/dL meet the criteria for diagnosis of diabetes. In the absence of unequivocal hyperglycemia, results should be confirmed by repeat testing. In a patient with classic symptoms of hyperglycemia or hyperglycemic crisis, random plasma glucose results greater than or equal to 200 mg/dL meet the criteria for diagnosis of diabetes.Reference: Standards of Medical Care in Diabetes 2016, [place] Diabetes Association. Diabetes Care. 2016.39(Suppl 1). Performed By: #### 2 4323-8 ####[facility] [id number] [place] [address] [place] Potassium [Moles/Vol] 4.5 mmol/L Normal 3.7-5.1 [facility] Comment on above: Order Comment: Speci men Type: BLOOD SPECIMENOrdering Facility: [facility] Address: [address] [place] [address] Performed By: #### 2 4323-8 ####[facility] [id number] [place] [address] [place] Protein [Mass/Vol] 6.8 g/dL Normal 6.3-8.0 [facility] Comment on above: Order Comment: Speci men Type: BLOOD SPECIMENOrdering Facility: [facility] Address: [address] [place] [address] Performed By: #### 2 4323-8 ####[facility] [id number] [place] [address] [place] Sodium [Moles/Vol] 138 mmol/L Normal 136-144 [facility] Comment on above: Order Comment: Speci men Type: BLOOD SPECIMENOrdering Facility: [facility] Address: [address] [place] [address] Performed By: #### 2 4323-8 ####[facility] [id number] [place] [address] [place] Urea nitrogen [Mass/Vol] 10 mg/dL Normal 7-21 [facility] Comment on above: Order Comment: Speci men Type: BLOOD SPECIMENOrdering Facility: [facility] Address: [address] [place] [address] Performed By: #### 2 4323-8 ####[facility] [id number] [place] [address] [place] CNPNon 05-28-2024 CNPN Normal [facility] BREAST BIOMARKERS (DCIS)on 0 05-27-2024 AP BIOMARKER DISCLAIMER Normal [facility] Comment on above: Order Comment: Speci men Type: TISSUE SPECIMENOrdering Facility: [facility] Address: [address] [place] [address] Result Comment: Cristobal mattson Developed Test (LDT) Disclaimer:Performance characteristics of immunohistochemical, immunofluorescent and chromogenic in-situ hybridization tests have been determined by the performing laboratory within [facility]???s [facility] Pathology and Laboratory Medicine Department ([facility], [facility], [facility], [facility], [facility], [facility], or [facility]) in a manner consistent with CLIA requirements. One or more of these tests have not been cleared or approved by the FDA. RT-PLM is regulated under CLIA as qualified to perform high-complexity testing. These tests are used for clinical purposes. They should not be regarded as investigational or for research. Positive and negative controls stain appropriately. Performed By: #### L [id number] ####[facility] LABIA [id number] [place] [id number] [place] AP BLOCK ID A2 Normal [facility] Comment on above: Order Comment: Speci men Type: TISSUE SPECIMENOrdering Facility: [facility] Address: [address] [place] [address] Performed By: #### L [id number] ####[facility] LABIA [id number] [place] [id number] [place] ASCO/CAP GUIDELINES FOR FIXATION MET Yes Normal [facility] Comment on above: Order Comment: Speci men Type: TISSUE SPECIMENOrdering Facility: [facility] Address: [address] [place] [address] Performed By: #### L [id number] ####[facility]ITAL[facility] [id number] [address] STATES OF [facility] BIOMARKER INTERPRETATION COMMENT AND REFERENCE RANGE Normal [facility] Comment on above: Order Comment: Speci men Type: TISSUE SPECIMENOrdering Facility: [facility] Address: [address] [place] [address] Result Comment: Refe rence Range for Hormone Receptors:Staining for ER of greater than or equal 1% of the tumor cells is considered positive.Staining for ER of less than 1% is considered negative. Performed By: #### L [id number] ####[facility]ITAL[facility] [id number] [place] [address] [place] BIOMARKER METHOD Normal [facility] Comment on above: Order Comment: Speci men Type: TISSUE SPECIMENOrdering Facility: [facility] Address: [address] [place] [address] Result Comment: Estr ogen Receptor:Food and Drug Administration (FDA) cleared: [place], [place], [facility] Antibody: SP1The hormone receptor test was performed and reported in accordance with the guidelines approved by the [place] Society of Clinical Oncologists and the College of [place] Pathologists. Emma PUENTES, et al. Estrogen and Progesterone Receptor Testing in Breast Cancer: [place] Society of Clinical Oncologists and the College of [place] Pathologists Guideline Update. Arch Pathol Lab Med. 2019;144(5):545-563. PMID: [id number].The hormone receptor assay has been internally validated on decalcified tissues (for [facility] only).Estrogen results are valid if tissue was processed according to ASCO/CAP guidelines.Antibody and Detection System: [place] Confirm anti-estrogen receptor rabbit monoclonal antibody (clone SP1) detected with the [employer] UltraView Univeral DAB Detection Kit (indirect biotin-free detection), [employer], [place], [place]. Performed By: #### L [id number] ####[facility] LABCLIA [id number] [address] [address] [place] [facility] CASE NUMBER DCIS [id number] Normal [facility] Comment on above: Order Comment: Speci men Type: TISSUE SPECIMENOrdering Facility: [facility] Address: [address] [place] [address] Performed By: #### L [id number] ####[facility] LABCLIA [id number] [place] [id number] [place] COLD ISCHEMIA TIME <1 Hour Normal [facility] Comment on above: Order Comment: Speci men Type: TISSUE SPECIMENOrdering Facility: [facility] Address: [address] [place] [address] Performed By: #### L [id number] ####[facility] LABCLIA [id number] [address] [place] [address] [place] ESTROGEN RECEPTOR (% TUMOR STAINING) 95 Normal [facility] Comment on above: Order Comment: Speci men Type: TISSUE SPECIMENOrdering Facility: [facility] Address: [address] [place] [address] Performed By: #### L [id number] ####[facility] LABCLIA [id number] [address] [place] [address] [place] ESTROGEN RECEPTOR (STAINING INTENSITY) Strong Normal [facility] Comment on above: Order Comment: Speci men Type: TISSUE SPECIMENOrdering Facility: [facility] Address: [address] [place], [place] [id number] Performed By: #### L [id number] ####[facility] LABCLIA [id number] [address] [place] [address] [facility] [place] ESTROGEN RECEPTOR EXTERNAL CONTROL Present and Stained as Expected Normal [facility] Comment on above: Order Comment: Speci men Type: TISSUE SPECIMENOrdering Facility: [facility] Address: [address] [place], [place] [address] Performed By: #### L [id number] ####[facility] LABCLIA [id number] [place] [id number] [facility] ESTROGEN RECEPTOR INTERNAL CONTROL Present and Stained as Expected Normal [facility] Comment on above: Order Comment: Speci men Type: TISSUE SPECIMENOrdering Facility: [facility] Address: [address] [place] [address] Performed By: #### L [id number] ####[facility] LABCLIA [id number] [address], [facility] [place] ESTROGEN RECEPTOR STATUS (DCIS) Positive Normal [facility] Comment on above: Order Comment: Speci men Type: TISSUE SPECIMENOrdering Facility: [facility] Address: [address] [place], [place] [address] Performed By: #### L [id number] ####[facility] LABCLIA [id number] [address] [place] [address] [place] FINAL PERFORMING LAB Normal [facility] Comment on above: Order Comment: Speci men Type: TISSUE SPECIMENOrdering Facility: [facility] Address: [address] [place], [place] [id number] Result Comment: Diag nostic interpretation performed at: [facility], [address] [place] [address], [address] [place] [address] CLIA# [id number] Director: Carlos Finnegan MDElectronically signed out by: Jovani Claudio MD Performed By: #### L [id number] ####[facility] LABCLIA [id number] [address] [place] [address] [place] Result Comment: Diag nostic interpretation performed at: [facility], [address] [facility], [address] [place] [address] CLIA# [id number] Director: Carlos Finnegan MD Performed By: #### 6 6121-5 ####[facility] LABCLIA [id number] [address] [place] [address] [place] FIXATIVE Formalin, 10% Neutra l Buffered Normal [facility] Comment on above: Order Comment: Speci men Type: TISSUE SPECIMENOrdering Facility: [facility] Address: [address] [place] [address] Performed By: #### L [id number] ####[facility] LABCLIA [id number] [address] [place] [address] [place] TOTAL FIXATION TIME >6 and <72 Hours Normal [facility] Comment on above: Order Comment: Speci men Type: TISSUE SPECIMENOrdering Facility: [facility] Address: [address] [place] [address] Performed By: #### L [id number] ####[facility] LABCLIA [id number] [address] [place] [address] [place] TUMOR TYPE (DCIS) Ductal Carcinoma in situ (DCIS) Normal [facility] Comment on above: Order Comment: Speci men Type: TISSUE SPECIMENOrdering Facility: [facility] Address: [address] [place], [place] [id number] Performed By: #### L [id number] ####[facility] LABCLIA [id number] [address] [place] [address] [place] WAS SPECIMEN DECALCIFIED No Normal [facility] Comment on above: Order Comment: Speci men Type: TISSUE SPECIMENOrdering Facility: [facility] Address: [address] [place] [address] Performed By: #### L [id number] ####[facility] LABCLIA [id number] [place] [address] [place] DBT Breast - [...] Madelaine Garcia D.O. Electronically signed on: 05/27/2024 Top Frame Fitter: JD Transcrivince Date/Time: May 27 2024 1:14P Dictated by : MADELAINE GARCIA DO This examination was interpreted and the report reviewed and electronically signed by: MAKAYLA WIN MD on May 27 2024 2:55PM [facility] DIVISION OF RADIOLOGY * * *Final Report* * * DATE OF EXAM: May 27 2024 1:26PM [facility] 0629 - [facility] DIAG W CONSTANTIN RT / PROCEDURE REASON: Abnormal finding on radiology exam * * * * Physician Interpretation * * * * RESULT: [address] [place] [address] #[id number] - MRI BREAST BX WO/W IVCON RT #[id number] - MRI BREAST BX ADDL LES RT #[id number] - МАРИЯ DIAG W CONSTANTIN RT HISTORY: [...] discussed with the patient or authorized customer development representative. The patient or authorized customer development representative has agreed to proceed with the sensitive examination. (Sensitive examination includes inspection and/or palpation of the breasts, pelvis, prostate and anorectal regions) The assistant financial accountant radiologist was Dr. Garcia. The assistant financial accountant radiologist administered local anesthesia, performed the tissue [...] quadrant, anterior depth, stoplight biopsy marker The assistant financial accountant radiologist was Dr. Garcia. The assistant financial accountant radiologist administered local anesthesia, performed the tissue [...] quadrant, middle depth, buckle biopsy marker The assistant financial accountant radiologist was Dr. Garcia. The assistant financial accountant radiologist administered local anesthesia, performed the tissue [...] content not included)... DIVISION OF RADIOLOGY Provider, [facility] - 05/27/2024 * * *Final Report* * * DATE OF EXAM: May 27 2024 1:26PM [facility] 0629 - [facility] DIAG W CONSTANTIN RT / PROCEDURE REASON: Abnormal finding on radiology exam * * * * Physician Interpretation * * * * RESULT: [place] [address] #[id number] - MRI BREAST BX WO/W IVCON RT #[id number] - MRI BREAST BX ADDL LES RT #[id number] - [facility] DIAG W CONSTANTIN RT HISTORY: 43 year [...] discussed with the patient or authorized customer development representative. The patient or authorized customer development representative has agreed to proceed with the sensitive examination. (Sensitive examination includes inspection and/or palpation of the breasts, pelvis, prostate and anorectal regions) The assistant financial accountant radiologist was Dr. Garcia. The assistant financial accountant radiologist administered local anesthesia, performed the tissue [...] quadrant, anterior depth, stoplight biopsy marker The assistant financial accountant radiologist was Dr. Garcia. The assistant financial accountant radiologist administered local anesthesia, performed the tissue [...] quadrant, middle depth, buckle biopsy marker The assistant financial accountant radiologist was Dr. Garcia. The assistant financial accountant radiologist administered local anesthesia, performed the tissue [...] inserted into th (more content not included)... [facility] МАРИЯ DIAG W CONSTANTIN RTon 025 [facility] DIAG W CONSTANTIN RT Normal [facility] MR Breast - right WO and W [...] Madelaine Garcia D.O. Electronically signed on: 05/27/2024 Top Frame Fitter: JD Transcrivince Date/Time: May 27 2024 12:02P Dictated by : MADELAINE GARCIA DO This examination was interpreted and the report reviewed and electronically signed by: MAKAYLA WIN MD on May 27 2024 2:55PM [facility] DIVISION OF RADIOLOGY * * *Final Report* * * DATE OF EXAM: May 27 2024 12:52PM [facility] 0696 - MRI BREAST BX WO/W IVCON RT / PROCEDURE REASON: Abnormal finding on radiology exam * * * * Physician Interpretation * * * * [place] [address] #[id number] - MRI BREAST BX WO/W IVCON RT #[id number] - MRI BREAST BX ADDL LES RT #[id number] - МАРИЯ DIAG W CONSTANTIN RT HISTORY: [...] discussed with the patient or authorized customer development representative. The patient or authorized customer development representative has agreed to proceed with the sensitive examination. (Sensitive examination includes inspection and/or palpation of the breasts, pelvis, prostate and anorectal regions) The assistant financial accountant radiologist was Dr. Garcia. The assistant financial accountant radiologist administered local anesthesia, performed the tissue [...] quadrant, anterior depth, stoplight biopsy marker The assistant financial accountant radiologist was Dr. Garcia. The assistant financial accountant radiologist administered local anesthesia, performed the tissue [...] quadrant, middle depth, buckle biopsy marker The assistant financial accountant radiologist was Dr. Garcia. The assistant financial accountant radiologist administered local anesthesia, performed the tissue [...] content not included)... DIVISION OF RADIOLOGY Provider, [facility] - 05/27/2024 * * *Final Report* * * DATE OF EXAM: May 27 2024 12:52PM [facility] 0696 - MRI BREAST BX WO/W IVCON RT / PROCEDURE REASON: Abnormal finding on radiology exam * * * * Physician Interpretation * * * * [place] [address] #[id number] - MRI BREAST BX WO/W IVCON RT #[id number] - MRI BREAST BX ADDL LES RT #[id number] - МАРИЯ DIAG W CONSTANTIN RT HISTORY: [...] discussed with the patient or authorized customer development representative. The patient or authorized customer development representative has agreed to proceed with the sensitive examination. (Sensitive examination includes inspection and/or palpation of the breasts, pelvis, prostate and anorectal regions) The assistant financial accountant radiologist was Dr. Garcia. The assistant financial accountant radiologist administered local anesthesia, performed the tissue [...] quadrant, anterior depth, stoplight biopsy marker The assistant financial accountant radiologist was Dr. Garcia. The assistant financial accountant radiologist administered local anesthesia, performed the tissue [...] quadrant, middle depth, buckle biopsy marker The assistant financial accountant radiologist was Dr. Garcia. The assistant financial accountant radiologist administered local anesthesia, performed the tissue [...] was inserted into (more content not included)... [facility] MR Guidance for biopsy of Kusum connelly [...] Madelaine Garcia D.O. Electronically signed on: 05/27/2024 Top Frame Fitter: JD Transcribe Date/Time: May 27 2024 12:53P Dictated by : MADELAINE GARCIA, This examination was interpreted and the report reviewed and electronically signed by: MAKAYLA WIN MD on May 27 2024 2:55PM [facility] DIVISION OF RADIOLOGY * * *Final Report* * * DATE OF EXAM: May 27 2024 12:53PM [facility] 0694 - MRI BREAST BX ADDL LES RT / PROCEDURE REASON: Abnormal finding on radiology exam * * * * Physician Interpretation * * * * [place] [address] #[id number] - MRI BREAST BX WO/W IVCON RT #[id number] - MRI BREAST BX ADDL LES RT #[id number] - МАРИЯ DIAG W CONSTANTIN RT HISTORY: [...] discussed with the patient or authorized customer development representative. The patient or authorized customer development representative has agreed to proceed with the sensitive examination. (Sensitive examination includes inspection and/or palpation of the breasts, pelvis, prostate and anorectal regions) The assistant financial accountant radiologist was Dr. Garcia. The assistant financial accountant radiologist administered local anesthesia, performed the tissue [...] quadrant, anterior depth, stoplight biopsy marker The assistant financial accountant radiologist was Dr. Garcia. The assistant financial accountant radiologist administered local anesthesia, performed the tissue [...] quadrant, middle depth, buckle biopsy marker The assistant financial accountant radiologist was Dr. Garcia. The assistant financial accountant radiologist administered local anesthesia, performed the tissue [...] content not included)... DIVISION OF RADIOLOGY Provider, [facility] - 05/27/2024 * * *Final Report* * * DATE OF EXAM: May 27 2024 12:53PM [facility] 0694 - MRI BREAST BX ADDL LES RT / PROCEDURE REASON: Abnormal finding on radiology exam * * * * Physician Interpretation * * * * [place] [address] #[id number] - MRI BREAST BX WO/W IVCON RT #[id number] - MRI BREAST BX ADDL LES RT #[id number] - [facility] DIAG W CONSTANTIN RT HISTORY: 43 year [...] discussed with the patient or authorized customer development representative. The patient or authorized customer development representative has agreed to proceed with the sensitive examination. (Sensitive examination includes inspection and/or palpation of the breasts, pelvis, prostate and anorectal regions) The assistant financial accountant radiologist was Dr. Garcia. The assistant financial accountant radiologist administered local anesthesia, performed the tissue [...] quadrant, anterior depth, stoplight biopsy marker The assistant financial accountant radiologist was Dr. Garcia. The assistant financial accountant radiologist administered local anesthesia, performed the tissue [...] quadrant, middle depth, buckle biopsy marker The assistant financial accountant radiologist was Dr. Garcia. The assistant financial accountant radiologist administered local anesthesia, performed the tissue [...] inserted into th (more content not included)... [facility] MRI BREAST BX ADDL LES RTon 05-27-2024 MRI BREAST BX ADDL LES RT Normal [facility] MRI BREAST BX WO/W IVCON RTo n 05-27-2024 MRI BREAST BX WO/W IVCON RT Normal [facility] No Panel InformationOrdered By: Ccf Provider on 05-27-2024 [facility] No Panel Informationon 05-27 Radiology Study observation (narrative) [facility] Pathology biopsy report Daniel (Tiss)on 05-27-2024 AP DISCLAIMER Normal [facility] Comment on above: Order Comment: Speci men Type: TISSUE SPECIMENOrdering Facility: [facility] Address: [address] [place] [address] Result Comment: Cristobal Gomez Test (LDT) Disclaimer:Performance characteristics of immunohistochemical, immunofluorescent, and chromogenic in-situ hybridization tests have been determined by the performing laboratory within [facility]'s [facility] Pathology and Laboratory Medicine Department ([facility], [facility], [facility], [facility], [facility], [facility], or [facility]) in a manner consistent with CLIA requirements. One or more of these tests may not have been cleared or approved by the FDA. RT-PLM is regulated under CLIA as qualified to perform high-complexity testing. These tests are used for clinical purposes. These should not be regarded as investigational or for research. Positive and negative controls stain appropriately. Performed By: #### 6 6121-5 ####[facility] LABCLIA [id number] [place] [id number] [place] CASE REPORT Normal [facility] Comment on above: Order Comment: Speci men Type: TISSUE SPECIMENOrdering Facility: [facility] Address: [address] [place] [address] Result Comment: [facility]urg [facility] Pathology Report Case: [id number] Provider: Makayla Win MD Collected: 05/27/2024 12:44 PMOrdering Location: MRI A10 Received: 05/27/2024 04:44 PMPathologist: Jovani Claudio MDSpecimens: A) - Breast, Right, Core Biopsy, 1ST SITE ANTERIOR RIGHT BREAST BIOPSY STOPLIGHT CLIP Nipple discharge rule out intraductal papilloma B) - Breast, Right, Core Biopsy, 2ND SITE SUPERIOR MIDDLE DEPTH BUCKLE CLIP Nipple discharge rule out intraductal papilloma Performed By: #### 6 6121-5 ####[facility] LABCLIA [id number] [address] [place] DIAGNOSIS COMMENT Normal [facility] Comment on above: Order Comment: Speci men Type: TISSUE SPECIMENOrdering Facility: [facility] Address: [address] [place] [address] Result Comment: Christy ct slides of Parts A and B were reviewed with Dr. 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 B reast, Right, Core BiopsyReceived in formalin labeled as right breast are multiple segments of cylindrical tissue aggregating to 4.0 x 1.8 x 0.3 cm, tee-brown and of a soft consistency. The specimen was removed from the patient at 12:44 on 05/27/2024. On the same day, the specimen was placed in formalin at 12:46. Totally submitted in formalin in two cassettes.B. Breast, Right, Core BiopsyReceived in formalin labeled as right breast are multiple segments of cylindrical tissue aggregating to 2.2 x 1.6 x 0.3 cm, tee-yellow and of a soft consistency. The specimen was removed from the patient at 12:47 on 05/27/2024. On the same day, the specimen was placed in formalin at 12:50. Totally submitted in formalin in one cassette.[facility] May 27, 2024 8:02 PMGross examination performed at [facility], [address] [place] [address] Performed By: #### 6 6121-5 ####[facility] LABCLIA [id number] [facility] [id number] [place] [address] [place] CNPNon 05-24-2024 CNPN Normal [facility] DBT Breast - right diagnosti c for [...] Christine Pulliam M.D. Electronically signed on: 05/20/2024 Top Frame Fitter: JD Transcribe Date/Time: May 20 2024 8:03A Dictated by : CHRISTINE PULLIAM MD This examination was interpreted and the report reviewed and electronically signed by: CHRISTINE PULLIAM MD on May 20 2024 9:18AM [facility] RADIOLOGY * * *Final Report* * * DATE OF EXAM: May 20 2024 8:55AM ST. [facility] 0629 - МАРИЯ NEHEMIAS W CONSTANTIN RT / PROCEDURE REASON: Abnormal finding on radiology exam * * * * Physician Interpretation * * * * RESULT: [facility] [address] [facility] [place] [address] #[id number] - [facility] US BIOPSY BREAST RT #[id number] - [facility] DIAG W CONSTANTIN RT HISTORY: 43 year [...] in appropriate position at the intraductal mass. [facility] Provider, Landon Loo [facility] - 05/20/2024 * * *Final Report* * * DATE OF EXAM: May 20 2024 8:55AM [facility] 0629 - [facility] [place] W CONSTANTIN RT / PROCEDURE REASON: Abnormal finding on radiology exam * * * * Physician Interpretation * * * * RESULT: [facility] [address] [facility] [place] [address] #[id number] - [facility] US BIOPSY BREAST RT #[id number] - [facility] DIAG W CONSTANTIN RT HISTORY: 43 year [...] Christine Pulliam M.D. Electronically signed on: 05/20/2024 Top Frame Fitter: JD Transcribe Date/Time: May 20 2024 8:03A Dictated by : CHRISTINE PULLIAM MD This examination was interpreted and the report reviewed and electronically signed by: CHRISTINE PULLIAM MD on May 20 2024 9:18AM EST [facility] Radiology Study observation (narrative) [facility] МАРИЯ Bloom CONSTANTIN RTon 025 МАРИЯ Bloom CONSTANTIN RT * * *Final Report* * * * * * SEE BOTTOM OF REPORT FOR ADDENDED TEXT * * * DATE OF EXAM: May 20 2024 8:55AM W 0629 - МАРИЯ Bloom CONSTANTIN RT / PROCEDURE REASON: Abnormal finding on radiology exam * * * * Physician Interpretation * * * * RESULT: [facility] [address] [facility] [place] [address] - - - - - - - [...] - - - - - - - #[id number] - [facility] US BIOPSY BREAST RT #[id number] - [facility] DIAG Ben CONSTANTIN RT HISTORY: 43 year old patient [...] Christine Pulliam M.D. Electronically signed on: 05/20/2024 Top Frame Fitter: JD Transcribe Date/Time: May 20 2024 8:03A Dictated by : CHRISTINE PULLIAM MD This examination was interpreted and the report reviewed and electronically signed by: CHRISTINE PULLIAM MD on May 20 2024 9:18AM EST This document has been addended by: CHRISTINE PULLIAM MD on May 24 2024 10:06AM EST [id number] Normal [facility] US BIOPSY BREAST RTon [facility] US BIOPSY BREAST RT * * *Final Report* * * * * * SEE BOTTOM OF REPORT FOR ADDENDED TEXT * * * DATE OF EXAM: May 20 2024 8:42AM W 0598 - [facility] US BIOPSY BREAST RT / PROCEDURE REASON: Abnormal finding on radiology exam * * * * Physician Interpretation * * * * RESULT: [facility] [address] [facility] [place] [address] - - - - - - - [...] - - - - - - - #[id number] - [facility] US BIOPSY BREAST RT #[id number] - [facility] NEHEMIAS FAUSTO RT HISTORY: 43 year old patient presents [...] Christine Pulliam M.D. Electronically signed on: 05/20/2024 Top Frame Fitter: JD Transcribe Date/Time: May 20 2024 8:01A Dictated by : CHRISTINE PULLIAM MD This examination was interpreted and the report reviewed and electronically signed by: CHRISTINE PULLIAM MD on May 20 2024 9:18AM EST This document has been addended by: CHRISTINE PULLIAM MD on May 24 2024 10:06AM EST [id number] Normal [facility] No Panel InformationOrdered By: Ccf Provider on 05-20-2024 [facility] Pathology biopsy report Daniel (Tiss)on 05-20-2024 AP DISCLAIMER [facility] Comment on above: Order Comment: Speci emanuel Type: TISSUE SPECIMEN Ordering Facility: [facility] Address: [address] [place] [address] Result Comment: Cristobal mattson Developed Test (LDT) Disclaimer: Performance characteristics of immunohistochemical, immunofluorescent, and chromogenic in-situ hybridization tests have been determined by the performing laboratory within [facility]'s [facility] Pathology and Laboratory Medicine Department ([facility], [facility], [facility], [facility], [facility], [facility], or [facility]) in a manner consistent with CLIA requirements. One or more of these tests may not have been cleared or approved by the FDA. RT-PLM is regulated under CLIA as qualified to perform high-complexity testing. These tests are used for clinical purposes. These should not be regarded as investigational or for research. Positive and negative controls stain appropriately. Performed By: #### 6 6121-5 #### [facility] CLIA [id number] [address] [place] [address] OF [facility] CLIA [id number] [address] [place] [address] [place] CASE REPORT Normal [facility] Comment on above: Order Comment: Speci men Type: TISSUE SPECIMEN Ordering Facility: [facility] Address: [address] [place] [address] Result Comment: Surg ical Pathology Report Case: [id number] Authorizing Provider: Christine Pulliam MD Collected: 05/20/2024 08:33 AM Ordering Location: [facility] Radiology Received: 05/20/2024 10:00 AM Mammography Pathologist: Sabina Joseph MD Specimen: Breast, Right, Core Biopsy, right breast; subareolar; 10:00; 0.6cm intraductal mass; Q clip Performed By: #### 6 6121-5 #### [facility] CLIA [id number] [address] [place] [address] OF [facility] CLIA [id number] [address] [place] [address] FINAL DIAGNOSIS [facility] Comment on above: Order Comment: Speci men Type: TISSUE SPECIMEN Ordering Facility: [facility] Address: [address] [place] [address] Result Comment: A. R ight breast at 10 o'clock, subareolar, ultrasound-guided core biopsy with Q-clip placement: - Minute fragments of fibrovascular and adipose tissue. - No breast ducts or intraductal lesion present for review. at 1459 EDT Performed By: #### 6 6121-5 #### [facility] CLIA [id number] [address] [place] [address] [place] [facility] CLIA [id number] [address] [place] [address] FINAL PERFORMING LAB [facility] Comment on above: Order Comment: Speci men Type: TISSUE SPECIMEN Ordering Facility: [facility] Address: [address] [place] [address] Result Comment: Diag nostic interpretation performed at: [facility], [address] [place] [address] CLIA# [id number] Floor Broker: Tejal Chavarria MD Performed By: #### 6 6121-5 #### [facility] CLIA [id number] [address] [place] [address] [place] [facility] CLIA [id number] [address] [place] [address] [place] GROSS DESCRIPTION [facility] Comment on above: Order Comment: Speci men Type: TISSUE SPECIMEN Ordering Facility: [facility] Address: [address] [place] [address] Result Comment: Ani mabry Right, Core Biopsy Received in formalin labeled [...] 2024 1:38 PM Gross examination performed at [facility], [address] [place] [address] Performed By: #### 6 6121-5 #### [facility] CLIA [id number] [address] [place] [address] LAB CLIA [id number] [address] [place] [address] [place] Guidance for biopsy of Br east [...] Christine Pulliam M.D. Electronically signed on: 05/20/2024 Top Frame Fitter: JD Transcribe Date/Time: May 20 2024 8:01A Dictated by : CHRISTINE PULLIAM MD This examination was interpreted and the report reviewed and electronically signed by: CHRISTINE PULLIAM MD on May 20 2024 9:18AM [facility] RADIOLOGY * * *Final Report* * * DATE OF EXAM: May 20 2024 8:42AM [facility] 0598 - [facility] US BIOPSY BREAST RT / PROCEDURE REASON: Abnormal finding on radiology exam * * * * Physician Interpretation * * * * RESULT: [facility] [address] [facility] [place] [address] #[id number] - [facility] US BIOPSY BREAST RT #[id number] - [facility] DIAG W CONSTANTIN RT HISTORY: 43 year [...] in appropriate position at the intraductal mass. [facility] Provider, Landon Loo [facility] - 05/20/2024 * * *Final Report* * * DATE OF EXAM: May 20 2024 8:42AM [facility] 0598 - МАРИЯ US BIOPSY BREAST RT / PROCEDURE REASON: Abnormal finding on radiology exam * * * * Physician Interpretation * * * * RESULT: [facility] [address] [facility] [place] [address] #[id number] - [facility] US BIOPSY BREAST RT #[id number] - [facility] NEHEMIAS KILLIAN RT HISTORY: 43 year old [...] Christine Pulliam M.D. Electronically signed on: 05/20/2024 Top Frame Fitter: JD Transcribe Date/Time: May 20 2024 8:01A Dictated by : CHRISTINE PULLIAM MD This examination was interpreted and the report reviewed and electronically signed by: CHRISTINE PULLIAM MD on May 20 2024 9:18AM EST [facility] Radiology Study observation (narrative) [facility] CNOVon 05-10-2024 CNOV Normal [facility] CNPNon 05-10-2024 CNPN Normal [facility] DBT Breast - bilateral diagn ostic for implanton 05-10-2024 Addendum by Provider , [facility] on 05/10/2024 3:18 PM EDT * * *Final Report* * * * * * SEE BOTTOM OF REPORT FOR ADDENDED TEXT * * * DATE OF EXAM: May 10 2024 10:56AM [facility] 0627 - [facility] NEHEMIAS TONG / PROCEDURE REASON: multiple diagnoses * * * * Physician Interpretation * * * * RESULT: [place] [address] - - - - - - - [...] - - - - - - - #[id number] - [facility] NEHEMIAS Bloom CONSTANTIN RAN #[id number] - [facility] [employer] BREAST LTD RT #[id number] - [facility] [employer] BREAST LTD LT HISTORY: 43 year-old patient [...] Radha Kamara M.D. Electronically signed on: 05/10/2024 Top Frame Fitter: JD Transcribe Date/Time: May 10 2024 10:47A Dictated by : RADHA KAMARA MD This examination was interpreted and the report reviewed and electronically signed by: RADHA KAMARA MD on May 10 2024 12:24PM EST This document has been addended by: RADHA KAMARA MD on May 10 2024 3:13PM EST [facility] МАРИЯ DIAG W CONSTANTIN BILon 2024 МАРИЯ DIAG W CONSTANTIN RAN Normal [facility] US BREAST LTD LTon 05-10 МАРИЯ US BREAST LTD LT Normal [facility] МАРИЯ US BREAST LTD RTon 05-10 МАРИЯ US BREAST LTD RT Normal [facility] No Panel InformationOrdered By: Ccf Provider on 05-10-2024 [facility] No Panel Informationon 05-10 Radiology Study observation (narrative) [facility] Prolactin SerPl-mCncon 05-10 Prolactin [Mass/Vol] 17.4 ng/mL Normal 4.4-33.8 [facility] Comment on above: Order Comment: Speci men Type: BLOOD SPECIMENOrdering Facility: [facility] Address: [address] [place] [address] Result Comment: Prol actin test is performed using the [employer] Electrochemiluminescence Immunoassay method. Results obtained with different methods or kits cannot be used interchangeably. Performed By: #### 2 842-3 ####[facility] [id number] [place] [address] [place] US Breast - left limitedon 0 05-10-2024 Addendum by Provider , [facility] on 05/10/2024 3:19 PM EDT * * *Final Report* * * * * * SEE BOTTOM OF REPORT FOR ADDENDED TEXT * * * DATE OF EXAM: May 10 2024 11:34AM [facility] 0593 - [facility] US BREAST LTD LT / PROCEDURE REASON: Nipple discharge * * * * Physician Interpretation * * * * RESULT: [facility] [address] [place] [address] - - - - - - - [...] - - - - - - - #[id number] - [facility] NEHEMIAS W CONSTANTIN RAN #[id number] - [facility] [employer] BREAST LTD RT #[id number] - [facility] [employer] BREAST [employer] LT HISTORY: 43 year-old patient seen for [...] Radha Kamara M.D. Electronically signed on: 05/10/2024 Top Frame Fitter: JD Transcrivince Date/Time: May 10 2024 11:12A Dictated by : RADHA KAMARA MD This examination was interpreted and the report reviewed and electronically signed by: RADHA KAMARA MD on May 10 2024 12:24PM EST This document has been addended by: RADHA KAMARA MD on May 10 2024 3:13PM EST [facility] Breast - right limitedon 05-10-2024 Addendum by Provider , [facility] on 05/10/2024 3:19 PM EDT * * *Final Report* * * * * * SEE BOTTOM OF REPORT FOR ADDENDED TEXT * * * DATE OF EXAM: May 10 2024 11:12AM [facility] 0594 - МАРИЯ US BREAST LTD RT / PROCEDURE REASON: multiple diagnoses * * * * Physician Interpretation * * * * RESULT: [address] [place] [address] - - - - - - - [...] - - - - - - - #[id number] - [facility] NEHEMIAS W CONSTANTIN RAN #[id number] - [facility] [employer] BREAST LTD RT #[id number] - [facility] [employer] BREAST LTD LT HISTORY: 43 year-old patient [...] Radha Kamara M.D. Electronically signed on: 05/10/2024 Top Frame Fitter: JD Transcribe Date/Time: May 10 2024 11:11A Dictated by : RADHA KAMARA MD This examination was interpreted and the report reviewed and electronically signed by: RADHA KAMARA MD on May 10 2024 12:24PM EST This document has been addended by: RADHA KAMARA MD on May 10 2024 3:13PM EST [facility] T4 Free SerPl-mCncon 025 Free T4 [Mass/Vol] 1.5 ng/dL Normal 0.9-1.7 [facility] Comment on above: Order Comment: Speci men Type: BLOOD SPECIMENOrdering Facility: [facility] Address: [address] [place] [address] Performed By: #### 3 024-7, 3016-3 ####[facility] [id number] [place] [address] [place] TSH SerPl-aCncon 05-03-2024 TSH Qn 0.338 m[IU]/L Normal 0.270-4.200 [facility] Comment on above: Order Comment: Speci men Type: BLOOD SPECIMENOrdering Facility: [facility] Address: [address] [place] [address] Result Comment: If t he patient is , TSH reference range varies by gestational period:First Trimester (weeks 9-12): 0.180-2.990 mIU/LSecond Trimester: 0.110-3.980 mIU/LThird Trimester: 0.480-4.710 mIU/Cecilia Whitfield et al. A Practical Approach for the Verifications and Determination of Site- and Trimester-Specific Reference Intervals for Thyroid Function tests in . Thyroid, 2019:29:3:412-420. Sylvester E, et al. 2017 Guidelines of the [place] Thyroid Association for the Diagnosis and Management of Thyroid Disease during and the . Thyroid, 2017:27:3:315-389. Performed By: #### 3 024-7, 3016-3 ####[facility] [id number] [place] [address] [place] CNPNon 04-30-2024 CNPN Normal [facility] CNPNon 04-28-2024 CNPN Normal [facility] CNPNon 04-21-2024 CNPN Normal [facility] Chest PA and Lateralon 04-19 Chest PA and Lateral [facility] Imaging Services [address] [place] [address] Chest PA and Lateral MR#: [id number] Acct: [id number] Name: YOLANDE GOMES Rep #: [id number] : 1980 F 43 From: Nahum Woods MD PCP: Kimberly Kumari PA-C Status: [facility] ER Study: Chest PA and Lateral Date of Exam: 04/19/24 Exam# [id number] Ordering Dr: Sukhjinder Lopez DO EXAM: XR Chest, 2 Views CLINICAL INDICATION: TECHNIQUE: Frontal and lateral views of the chest. COMPARISON: No relevant prior studies available. FINDINGS: LUNGS AND PLEURAL SPACES: Unremarkable. No consolidation. No pneumothorax. HEART: Unremarkable. No cardiomegaly. MEDIASTINUM: Unremarkable. Normal mediastinal contour. BONES/JOINTS: Unremarkable. No acute fracture. RAD/Chest PA and Lateral IMPRESSION: No acute cardiopulmonary process. Reading [facility] CC: AVELINO Kumari; Dr. Sukhjinder Lopez DO Top Frame Fitter: Signed Normal [facility] Emergency Department Summary on 04-19-2024 Emergency Department Summary [facility] Medical Records Department [address] [place] [address] Emergency Department Summary 04/19/24 MR#: [id number] Acct: [id number] Name: YOLANDE GOMES Rep #: [id number] : 1980 43 From: Sukhjinder Lopez DO [...] the past. No rashes. No vomiting diarrhea. [facility] Medical History Anxiety Depression PCOS (polycystic ovarian [...] at home: Yes additional social history: JOSLYN EM ROS ED Constitutional Constitutional ED: Reports fever(s) [...] Extremity: Negative (more content not included)... Normal [facility] Laboratory - Microbiology an d Antimicrobial susceptibilityOrdered By: Alex Zimmerman on 04-16-2024 SARS-CoV-2 (COVID-19) RNA DORIAN+probe Ql (Unsp spec) Not detected [facility] No Panel InformationOrdered By: Alex Zimmerman on 04-16-2024 Influenza Types A,B Rapid (Clinic) Not detected [facility] Urgent Care Visit Reporton 0 04-16-2024 Urgent Care Visit Report [facility] [address], [address] [place] [address] OFFICE VISIT Date of Service: 04/16/24 MR#: [id number] Acct: [id number] Name: YOLANDE GOMES Rep #: [id number] : 1980 Provider: HELEN Jamison Age/Sex: 43/F Location: [facility] Status: Signed Intake Vital Signs 03/08/24 13:33 04/16/24 09:10 Height 5 ft 2 in BP 124/66 H Blood Pressure Location Rt brachial Position Sitting Respiration 16 Pulse 100 Pulse Source NIBP Temp 98.6 F Temp Source Oral Pulse Oximetry (%) 100 Oxygen Delivery Method room air Intake Visit Reasons: SORE THROAT, COUGH, BODY ACHES Chief Complaint: ST, BA, [place], cough, fatigue, ear pain Rodding Machine Tender Required: No Is patient in pain?: Yes Allergies Penicillins Allergy (Verified 04/16/24 09:11) Anaphylaxis Is last menstrual period known: No Post menopausal: No Patient : No Have you fallen in the past year?: No Nurse's Note: ST, BA, [place], cough, fatigue, ear pain x 24 hours. [...] at home: Yes additional social history: JOSLYN Davila Female Reproductive History Menstrual Ab spontaneous: 2 HPI HPI Chief Complaint: ST, BA, [place], cough, fatigue, ear pain Details: YOLANDE GOMES, [...] Exam Const General: cooperative and well developed HENVT Head: normal to inspection and atraumatic Ears: [...] Nguyen Signature: Date (if applicable) CC: Normal [facility] Breast Bilateral W/O and Won 04-13-2024 Breast Bilateral W/O and W [facility] Imaging Services [address] [place] [id number] Breast Bilateral W/O and W MR#: [id number] Acct: [id number] Name: YOLANDE GOMES Rep #: [id number] : 1980 F 43 From: Narinder Schulz MD PCP: Kimberly Kumari PA-C Status: REG CLI Study: Breast Bilateral W/O and W Date of Exam: 04/13 Exam# [id number] Ordering Dr: Marina Guzman DO PROCEDURE: BREAST [...] CATEGORY: BI-RADS 4: SUSPICIOUS ABNORMALITY Reading Location: [facility] CC: AVELINO Kumari; Dr. Marina Guzman DO Top Frame Fitter: Signed Normal [facility] Furniture Removalist'S Assistant Office Visit Reporton 03-08-2024 Furniture Removalist'S Assistant Office Visit Report [facility], [address] [place] [id number] OFFICE VISIT Date of Service: 03/08/24 MR#: [id number] Acct: [id number] Name: YOLANDE GOMES Rep #: [id number] : 1980 Provider: Dr. Marina Bro DO Age/Sex: 43/F [place] [facility] [place]: Signed Intake Vital Signs 11/26/23 11:29 03/08/24 13:32 03/08/24 13:33 Height 5 ft 2 in 5 ft 2 in 5 ft 2 in Weight: 159 lb 8 oz BMI 29.1 BP 107/63 Intake Visit Reasons: bloody right nipple discharge Rodding Machine Tender Required: No Is patient in pain?: No [...] : No PFSH Medical History Anxiety Depression PCOS (polycystic [...] at home: Yes additional social history: JOSLYN Davila HPI bloody right nipple discharge Details: YOLANDE [...] - Nipple discharge 03/08/24 1356 Date Marina Orantes Signature: Date (if applicable) CC: Normal [facility] CNOVon 01-07-2024 CNOV Normal [facility] STREP A MOLECULAR (POC)on Procedural Control Valid [facility] Strep A (POCT) Negative Negative [facility] XR CHEST 2V FRONTAL/LATon XR CHEST 2V FRONTAL/LAT Normal [facility] XR Chest PA and Lateralon IMPRESSION: No acute radiographic abnormality. Top Frame Fitter: DIMITRI Transcribe Date/Time: Jan 07 2024 7:37P Dictated by : GAB STOLL MD This examination was interpreted and the report reviewed and electronically signed by: GAB STOLL MD on Jan 07 2024 7:37PM [facility] DIVISION OF RADIOLOGY * * *Final [...] soft tissues: Unremarkable. DIVISION OF RADIOLOGY Provider, [facility] - 01/07/2024 * * *Final Report* * [...] Unremarkable. IMPRESSION IMPRESSION: No acute radiographic abnormality. Top Frame Fitter: [facility] Transcribe Date/Time: Jan 07 2024 7:37P Dictated by : GAB STOLL MD This examination was interpreted and the report reviewed and electronically signed by: GAB STOLL MD on Jan 07 2024 7:37PM EST [facility] Radiology Study observation (narrative) [facility] XR Chest PA and LateralOrder ed By: Ccf Provider on 01-07-2024 [facility] CT BRAIN WO IVCONon 12-16-19 CT BRAIN WO IVCON Normal [facility] CT Head WO contraston 2023 IMPRESSION: No evidence of an acute intracranial process. Top Frame Fitter: PSCLibia Transcribe Date/Time: Dec 16 2023 9:09A Dictated by : LUIS MOORE MD This examination was interpreted and the report reviewed and electronically signed by: LUIS MOORE MD on Dec 16 2023 9:10AM [facility] DIVISION OF RADIOLOGY * * *Final Report* * * DATE OF EXAM: Dec 16 2023 8:22AM [facility] 0504 - CT BRAIN WO IVCON [...] are unremarkable. DIVISION OF RADIOLOGY Provider, Landon L[facility] - 12/16/2023 * * *Final Report* * * DATE OF EXAM: Dec 16 2023 8:22AM [facility] 0504 - CT BRAIN WO IVCON [...] No evidence of an acute intracranial process. Top Frame Fitter: [facility] Transcribe Date/Time: Dec 16 2023 9:09A Dictated by : LUIS MOORE MD This examination was interpreted and the report reviewed and electronically signed by: LUIS MOORE MD on Dec 16 2023 9:10AM EST [facility] Radiology Study observation (narrative) [facility] CT Head WO contrastOrdered B y: Ccf Provider on 12-16-2023 [facility] Pelvic w/ Transvaginalon Pelvic w/ Transvaginal [facility] Imaging Services [facility] [place], [place] [id number] Pelvic w/ Transvaginal MR#: [id number] Acct: [id number] Name: YOLANDE GOMES Rep #: [id number] : 1980 F 43 From: Morteza Valle PCP: Kimberly Kumari PA-C Status: REG CLI Study: Pelvic w/ Transvaginal Date of Exam: 12/12/23 Exam# [id number] Ordering Dr: Chery Xiong [id number] STUDY: ULTRASOUND OF THE FEMALE PELVIS - [...] CC: AVELINO Kumari; Dr. Chery Xiong MD Top Frame Fitter: Signed Normal [facility] SCRN MAMM (CAD)W/CONSTANTIN BILATo n 12-12-2023 SCRN MAMM (CAD)W/CONSTANTIN BILAT [facility] [facility] Imaging Services [address] [place] [address] SCRN MAMM (CAD)W/CONSTANTIN BILAT MR#: [id number] Acct: [id number] Name: YOLANDE GOMES Rep #: [id number] : 1980 F 43 From: Lazaro selby MD PCP: Kimberly Kumari PA-C Status: [facility] Study: SCRN MAMM (CAD)W/CONSTANTIN BILAT Date of Exam: 11/24 10/17 Exam# [id number] Ordering Dr: Chery Xiong [id number] MAMMOGRAPHY - BILATERAL SCREENING REASON FOR EXAM: [...] delay biopsy of a clinically suspicious abnormality. [id number] Electronically Signed: Lazaro Romero MD at 10:51 EDT , CC: AVELINO Kumari; Dr. Chery Xiong MD Top Frame Fitter: Signed Normal [facility] 17-Hydroxyprogesteroneon 17ALPHA [place]-PROG 45 ng/dL Normal . [facility] Comment on above: Order Comment: Test( s) [id number] Progesterone LCMSwas developed and its performance characteristicsdetermined by [employer]. It has not been cleared or approvedby the Food and Drug Administration.N Result Comment: Adul t Female Follicular 15 - 70 Luteal 35 - 290 Performed at: [address] [id number] Bronze Plater: Angel Spence MD, Phone: [phone] Performed By: #### L 3300.1500, L3300.1750, L3400.4800, L3100.9000, L3100.5125, L3100.5310 ####[facility] [address] [place], [place], [id number] DHEA Sulfateon 12-03-2023 DHEA SULFATE 215.0 ug/dL Normal 41.2-243.7 [facility] Comment on above: Order Comment: NN Performed By: #### L 3300.1500, L3300.1750, L3400.4800, L3100.9000, L3100.5125, L3100.5310 ####[facility] [address] [place], [place], [id number] Testosterone Freeon 12-03-19 24 TESTOSTER FREE 1.4 pg/mL Normal 0.0-4.2 [facility] Comment on above: Order Comment: NN Result Comment: Perf ormed at: [facility] [address] [id number] Bronze Plater: Pradeep Lemus PhD, Phone: [phone] Performed at: - [facility] [id number] Bronze Plater: Angel Spence MD, Phone: [phone] Performed By: #### L 3300.1500, L3300.1750, L3400.4800, L3100.9000, L3100.5125, L3100.5310 ####[facility] [address] [place], [address] Testosterone, Total / Freeon 12-03-2023 TESTOSTER,FREE 0.32 ng/dL Normal 0.10-0.85 [facility] Comment on above: Order Comment: N N Performed By: #### L 3300.1500, L3300.1750, L3400.4800, L3100.9000, L3100.5125, L3100.5310 #### [facility] [address] [place], [address] TESTOSTERONE, T 16 ng/dL Normal 4-50 [facility] Comment on above: Order Comment: N N Performed By: #### L 3300.1500, L3300.1750, L3400.4800, L3100.9000, L3100.5125, L3100.5310 #### [facility] [address] [place], [address] TESTOSTERONE,%F 2.02 Normal 0.50-2.80 [facility] Comment on above: Order Comment: N N Performed By: #### L 3300.1500, L3300.1750, L3400.4800, L3100.9000, L3100.5125, L3100.5310 #### [facility] [address] [place], [address] Estradiolon 11-26-2023 ESTRADIOL 161.5 pg/mL Normal [facility] Comment on above: Result Comment: NORM AL [...] 3300.1500, L3300.1750, L3400.4800, L3100.9000, L3100.5125, L3100.5310 #### [facility] [address] [place], [place], [id number] Follicle Stimulating Hormone on 11-26-2023 FSH 4.4 mIU/mL Normal [facility] Comment on above: Result Comment: NORMAL REFERENCE RANGES FEMALE FOLLICULAR 2.3 - 12.6 mIU/mL MID-CYCLE PEAK 5.2 - 17.5 mIU/mL LUTEAL 1.7 - 12.9 mIU/mL POST-MENOPAUSAL ON MHT 5.9 - 72.8 mIU/mL NOT ON MHT 12.7 - 132.2 mlU/mL MALE 0.7 - 10.8 mIU/mL Performed By: #### L 3300.1500, L3300.1750, L3400.4800, L3100.9000, L3100.5125, L3100.5310 #### [facility] [address] [place], [address] Furniture Removalist'S Assistant Office Visit Reporton 11-26-2023 Furniture Removalist'S Assistant Office Visit Report [facility]'s [address], [address] [place] [address] OFFICE VISIT Date of Service: 11/26/23 MR#: [id number] Acct: [id number] Name: YOLANDE GOMES Rep #: [id number] : 1980 Provider: Dr. Chery penaloza MD Age/Sex: 43/F [place] [facility] [place]: Signed Intake Vital Signs 02/28/23 16:16 11/26/23 11:23 11/26/23 11:29 Height 5 ft 2 in 5 ft 2 in 5 ft 2 in Weight: 168 lb 158 lb BMI 30.7 28.9 BP 112/70 102/70 Blood Pressure Location Lt brachial Position Sitting Intake Visit Reasons: AUB/pelvic pain per Rodding Machine Tender Required: No Is patient in pain?: Yes (pelvic pain especially with bending ) Pain scale (1-10): 3 Allergies Penicillins Allergy (Verified 11/26/23 11:24) Anaphylaxis Medications ???Medication ???Instructions ???Recorded ???Confirmed ???Type thyroid (pork) 30 mg tablet (PUBLIC RELATIONS OFFICER ea PO 03/11/22 11/26/23 History Thyroid) spironolactone [...] at home: Yes additional social history: JOSLYN Davila HPI AUB/pelvic pain per Details: YOLANDE GOMES is a 43 year [...] acute distress and well developed Orientation: alert [facility] Head: normal to inspection and normocephalic Ears: [...] handouts g (more content not included)... [facility] Visit ([facility] ) -------- YOLANDE GOMES ([id number]) 1980 F Date Time Provider Department 10/13/23 [...] no pain to extension or flexion or zupm-rm-wtmp movement. Skin over the neck is intact. Palpation of sub-occipital area bilaterally triggers pain. ASSESSMENT: -Bilateral occipital neuralgia RECOMMENDATIONS: -Bilateral occipital nerve block today -Follow up as needed. Elly Cuellar MD [facility] [place] Elly Cuellar MD 10/13/2023 1:26 PM Signed Occipital Nerve Block procedure note: Responsible practitioner performing the procedure(s)/treatment(s ): Elly Cuellar Practitioner obtaining the consent: Elly Cuellar Procedure(s)/treatment(s ): Occipital nerve block Consent Source: Patient Consent [...] Nerve Block: Dx: Occipital neuralgia Consent: In [facility] Informational guide about Occipital nerve block given [...] injected with (more content not included)... Normal [facility] CNOVon 09-16-2023 [facility] Office Visit (NEADFV ) -------- YOLANDE GOMES ([id number]) 1980 F Date Time Provider Department 09/16/23 4:00 PM ELLY CUELLAR NEADFV During your visit today, we recorded the following information about you: Temperature Pulse Blood pressure Weight 97.6 degrees 90/minute 132/76 70.7 kg Height 1.575 m Elly Cuellar MD 09/17/2023 2:14 PM Signed Patient came for a nerve block but it was not approved by his insurance so we will cancel this appointment. Elly Cuellar MD [facility] [place] Referring Provider: ELLY CUELLAR [[id number]] Allergies As of Date: 09/16/2023 Noted Allergy [...] Encounter Status:Closed by ELLY CUELLAR on 09/17/23 Normal [facility] No Panel Informationon 08-17 Interpretation and review of laboratory results Normal [facility] T4 FREE/FREE THYROXINEon Free T4 [Mass/Vol] 0.9 ng/dL 0.9 - 1.7 ng/dL [facility] THYROID PEROXIDASE ANTIBODYo n 08-18-2023 Interpretation and review of laboratory results Normal [facility] TPO Ab Qn NINF [facility] Comment on above: Thyroid Peroxidase A ntibody test is used as an aid in diagnosis of autoimmune thyroid disease. Clinical correlation is required. [facility] THYROID STIMULATING HORMONEo n 08-18-2023 TSH Qn 1.720 m[IU]/L [facility] Comment on above: If the patient is pr egnant, TSH reference range varies by gestational period: First Trimester (weeks 9-12): 0.180-2.990 mIU/L Second Trimester: 0.110-3.980 mIU/L Third Trimester: 0.480-4.710 mIU/L Ti Whitfield et al. A Practical Approach for the Verifications and Determination of Site- and Trimester-Specific Reference Intervals for Thyroid Function tests in . Thyroid, 2019:29:3:412-420. Sylvester Farias, et al. 2017 Guidelines of the [place] Thyroid Association for the Diagnosis and Management of Thyroid Disease during and the . Thyroid, 2017:27:3:315-389. T3, FREE [CCL]on 04-14-2023 Free T3 [Mass/Vol] 3.2 pg/mL Normal 2.3-4.1 [facility] Comment on above: Result Comment: [facility] [address] [place] [address] Carlos Finnegan III, M.D. [id number] Performed By: #### 2 01982 #### [facility],[address] [place], [place] [address] CBC + DIFFon 04-10-2023 Baso # 0.10 x10EE3/UL Normal 0.00 - 0.10 [facility] Comment on above: Performed By: #### 2 97192 #### [facility],[address] [place] [address] Basophils/100 WBC (Bld) 1.2 % Normal 0.0 - 2.0 [facility] Comment on above: Performed By: #### 2 83491 #### [facility],[address] [place] [address] CBC + DIFF Normal [facility] Comment on above: Result Comment: CBC- COMPLETE BLOOD COUNT Performed By: #### 2 05830 #### [facility],[address] [place] [address] EO # 0.20 x10EE3/UL Normal 0.00 - 0.50 [facility] Comment on above: Performed By: #### 2 04464 #### [facility],[address] [place] [address] Eosinophils/100 WBC (Bld) 3.3 % Normal 0.0 - 7.0 [facility] Comment on above: Performed By: #### 2 80329 #### [facility],[address] [place] [address] Erythrocyte distribution width (RBC) [Ratio] 13.6 % Normal 12.0 - 15.6 [facility] Comment on above: Performed By: #### 2 29547 #### [place] [address] Hematocrit (Bld) [Volume fraction] 46.8 % High 34.0 - 46.0 [facility] Comment on above: Performed By: #### 2 23173 #### [place] [address] Hemoglobin (Bld) [Mass/Vol] 15.1 g/dL Normal 12.0 - 16.0 [facility] Comment on above: Performed By: #### 2 37715 #### [place] [address] Lymph # 2.60 x10EE3/UL Normal 0.80 - 2.80 [facility] Comment on above: Performed By: #### 2 56776 #### [place] [id number] Lymphocytes/100 WBC (Bld) 41.4 % Normal 20.0 - 45.0 [facility] Comment on above: Performed By: #### 2 71533 #### [place] [id number] MANUAL DIFF N/A Normal [facility] Comment on above: Performed By: #### 2 35767 #### [place] [address] MCH (RBC) [Entitic mass] 30 pg Normal 27 - 33 [facility] Comment on above: Performed By: #### 2 38988 #### [facility],[address] [place] [address] MCHC 32 X10 3 Normal 32 - 36 [facility] Comment on above: Performed By: #### 2 50911 #### [facility],[address] [place] [address] MCV (RBC) [Entitic vol] 92 fL Normal 80 - 99 [facility] Comment on above: Performed By: #### 2 51616 #### [facility],[address] [place] [address] [place] # 0.40 x10EE3/UL Normal 0.20 - 1.00 [facility] Comment on above: Performed By: #### 2 28217 #### [facility],[address] [place], [place] [phone] MONOS % 5.9 % Normal 0.0 - 10.0 [facility] Comment on above: Performed By: #### 2 18634 #### [facility],[address] [place] [address] Morphology Daniel (Bld) [Interp] N/A Normal [facility] Comment on above: Result Comment: {CD] Performed By: #### 2 49055 #### [facility],[address] [place] [address]72 Neut # 3.00 x10EE3/UL Normal 1.50 - 7.10 [facility] Comment on above: Performed By: #### 2 05094 #### [address] [address] Neutrophils/100 WBC (Bld) 48.2 % Normal 46.0 - 76.0 [facility] Comment on above: Performed By: #### 2 12337 #### [address] [address] PLATELET 356 x10EE3/UL Normal 150 - 450 [facility] Comment on above: Performed By: #### 2 78508 #### [facility],[address] [place] [address] Platelet mean volume (Bld) [Entitic vol] 8.1 fL Normal 6.6 - 10.5 [facility] Comment on above: Result Comment: AUTO MATED DIFFERENTIAL Performed By: #### 2 64738 #### [facility],[address] [place] [address] RBC 5.11 x 10EE6/UL Normal 4.10 - 5.30 [facility] Comment on above: Performed By: #### 2 14755 #### [facility],[address] [place] [address] WBC 6.2 x 10EE3/UL Normal 4.5 - 10.8 [facility] Comment on above: Performed By: #### 2 91957 #### [facility],[address] [place] [address] CMP with eGFRon 04-10-2023 AGE 42 years Normal [facility] Comment on above: Performed By: #### 2 62932 #### [place] [address] Albumin [Mass/Vol] 3.5 g/dL Normal 3.4 - 5.0 [facility] Comment on above: Performed By: #### 2 92957 #### [facility],[address] [place] [address] Albumin/Globulin [Mass ratio] 1.0 {ratio} Normal 0.9 - 1.6 [facility] Comment on above: Performed By: #### 2 08961 #### [place] [address] ALK PHOS 79 U/L Normal 46 - 116 [facility] Comment on above: Performed By: #### 2 98075 #### [facility],[address],[place] [address] ALT [Catalytic activity/Vol] 20 U/L Normal 14 - 59 [facility] Comment on above: Performed By: #### 2 35792 #### [facility],[address] [place] [address] Anion gap [Moles/Vol] 12 mmol/L Normal 10 - 20 [facility] Comment on above: Performed By: #### 2 30121 #### [facility],[address] [place] [address] AST [Catalytic activity/Vol] 21 U/L Normal 13 - 39 [facility] Comment on above: Performed By: #### 2 46743 #### [facility],[address] [place] [address] B/C RATIO 15 ratio Normal 0 - 30 [facility] Comment on above: Performed By: #### 2 15269 #### [facility],[address] [place] [address] Bilirubin [Mass/Vol] 0.6 mg/dL Normal 0.2 - 1.0 [facility] Comment on above: Performed By: #### 2 78064 #### [facility],[address] [place] [address] Calcium [Mass/Vol] 8.7 mg/dL Normal 8.5 - 10.1 [facility] Comment on above: Performed By: #### 2 90357 #### [facility],[address] [place] [address] Chloride [Moles/Vol] 104 mmol/L Normal 98 - 107 [facility] Comment on above: Performed By: #### 2 81397 #### [facility],[address] [place] [address] CMP with eGFR Normal [facility] Comment on above: Result Comment: COMP REHENSIVE METABOLIC PANEL Performed By: #### 2 87404 #### [facility],[address] [place] [address]806 CO2 [Moles/Vol] 28.6 mmol/L Normal 21.0 - 32.0 [facility] Comment on above: Performed By: #### 2 03976 #### [facility],[address] [place], [place] [address] Creatinine [Mass/Vol] 0.72 mg/dL Normal 0.55 - 1.02 [facility] Comment on above: Performed By: #### 2 33133 #### [facility],[address] [place], [place] [address] GFR/1.73 sq M.predicted among non-blacks MDRD (S/P/Bld) [Vol rate/Area] mL/min/{1.73_m2} Normal 60 - 999 [facility] Comment on above: Performed By: #### 2 59161 #### [place] [address] Result Comment: ACCO RDING TO THE NATIONAL KIDNEY DISEASE EDUCATION PROGRAM(NKDE), A NORMAL eGFR IS A VALUE GREATER THAN OR EQUAL TO 60 ML/MIN/1.73 SQ METERS. CHRONIC KIDNEY DISEASE: <60mL/MIN/1.73 SQ METERS KIDNEY FAILURE: <15mL/MIN/1.73 SQ METERS THIS TEST SHOULD ONLY BE USED FOR PATIENTS 18 YEARS OF AGE AND OLDER. Globulin (S) [Mass/Vol] 3.5 g/dL Normal 1.5 - 3.8 [facility] Comment on above: Performed By: #### 2 80690 #### [facility],[address] [place], [place] [address] Glucose [Mass/Vol] 82 mg/dL Normal 74 - 106 [facility] Comment on above: Performed By: #### 2 44675 #### [address] [address] Potassium [Moles/Vol] 4.9 mmol/L Normal 3.5 - 5.1 [facility] Comment on above: Performed By: #### 2 88416 #### [facility],[address] [place] [address]85 Protein [Mass/Vol] 7.0 g/dL Normal 6.4 - 8.2 [facility] Comment on above: Performed By: #### 2 59435 #### [facility],[address] [place] [address]653 Sodium [Moles/Vol] 140 mmol/L Normal 136 - 145 [facility] Comment on above: Performed By: #### 2 09264 #### [facility],[address] [place] [address] 81801 Urea nitrogen [Mass/Vol] 11 mg/dL Normal 7 - 18 [facility] Comment on above: Performed By: #### 2 93603 #### [facility],[address] [place] [address] HEMOGLOBIN A1C (POM)on 04-10 Glucose [Mass/Vol] 108.3 mg/dL High 0.0 - 0.0 [facility] Comment on above: Result Comment: BLDo HEMOGLOBIN A1C REFERENCE RANGESBLDo Suggested Diagnosis HbA1c(%) HbA1C (mmol/mol Diabetic >/=6.5 >/=48 Prediabetes 5.7 - 6.4 39 - 47 Normal <5.7 <39 Performed By: #### 2 76302 #### [facility],[address] [place] [address]776 HbA1c (Bld) [Mass fraction] 5.4 % Normal 0.0 - 6.5 [facility] Comment on above: Performed By: #### 2 20623 #### [facility],[address] [place] [address]65 T4-FREE (FREE THYROXINE)on 0 04-10-2023 Free T4 [Mass/Vol] 0.62 ng/dL Low 0.76 - 1.46 [facility] Comment on above: Result Comment: P otential of falsely elevated results when biotin concentrations are > 10 ng/mL. Performed By: #### 2 51648 #### [facility],[address] [place] [address] TSHon 04-10-2023 TSH Qn 1.37 m[IU]/L Normal 0.35 - 3.74 [facility] Comment on above: Performed By: #### 2 35872 #### [facility],[address] [place] [address] CMP with eGFRon 01-08-2023 AGE 42 years Normal [facility] Comment on above: Performed By: #### 2 33010 #### [facility],[address] [place] [address]958 Albumin [Mass/Vol] 3.7 g/dL Normal 3.4 - 5.0 [facility] Comment on above: Performed By: #### 2 50594 #### [facility],[address] [place] [address]9766 Albumin/Globulin [Mass ratio] 1.2 {ratio} Normal 0.9 - 1.6 [facility] Comment on above: Performed By: #### 2 43321 #### [facility],[address] [place] [address] 76[address] ALK PHOS 76 U/L Normal 46 - 116 [facility] Comment on above: Performed By: #### 2 50696 #### [facility],[address] [place] [address] ALT [Catalytic activity/Vol] 17 U/L Normal 14 - 59 [facility] Comment on above: Performed By: #### 2 69175 #### [facility],[address] [place] [address]381 Anion gap [Moles/Vol] 14 mmol/L Normal 10 - 20 [facility] Comment on above: Performed By: #### 2 47621 #### [facility],[address] [place] [address] 23599 AST [Catalytic activity/Vol] 15 U/L Normal 13 - 39 [facility] Comment on above: Performed By: #### 2 15493 #### [facility],[address] [place] [address] B/C RATIO 25 ratio Normal 0 - 30 [facility] Comment on above: Performed By: #### 2 74700 #### [facility],[address] [place] [address]73 Bilirubin [Mass/Vol] 0.6 mg/dL Normal 0.2 - 1.0 [facility] Comment on above: Performed By: #### 2 02717 #### [facility],[address] [place] [address]2814 Calcium [Mass/Vol] 9.4 mg/dL Normal 8.5 - 10.1 [facility] Comment on above: Performed By: #### 2 83074 #### [facility],[address] [place] [address] 71781 Chloride [Moles/Vol] 103 mmol/L Normal 98 - 107 [facility] Comment on above: Performed By: #### 2 60191 #### [facility],[address] [place] [address] 70840 CMP with eGFR Normal [facility] Comment on above: Result Comment: COMP REHENSIVE METABOLIC PANEL Performed By: #### 2 00466 #### [facility],[address] [place] [address] 91200 CO2 [Moles/Vol] 27.2 mmol/L Normal 21.0 - 32.0 [facility] Comment on above: Performed By: #### 2 44008 #### [facility],[address] [place] [address] 94099 Creatinine [Mass/Vol] 0.65 mg/dL Normal 0.55 - 1.02 [facility] Comment on above: Performed By: #### 2 04371 #### [facility],[address] [place] [address] 06162 eGFR 99 ML/MINUTE Normal 60 - 999 [facility] Comment on above: Performed By: #### 2 33943 #### [address] [address] eGFR(AA) 120 ML/MINUTE Normal 60 - 999 [facility] Comment on above: Result Comment: ACCO RDING TO THE NATIONAL KIDNEY DISEASE EDUCATION PROGRAM(NKDE), A NORMAL eGFR IS A VALUE GREATER THAN OR EQUAL TO 60 ML/MIN/1.73 SQ METERS. CHRONIC KIDNEY DISEASE: <60mL/MIN/1.73 SQ METERS KIDNEY FAILURE: <15mL/MIN/1.73 SQ METERS THIS TEST SHOULD ONLY BE USED FOR PATIENTS 18 YEARS OF AGE AND OLDER. Performed By: #### 2 08207 #### [address] [address] Globulin (S) [Mass/Vol] 3.1 g/dL Normal 1.5 - 3.8 [facility] Comment on above: Performed By: #### 2 81306 #### [address] [address] Glucose [Mass/Vol] 75 mg/dL Normal 74 - 106 [facility] Comment on above: Performed By: #### 2 [address]7945 #### [address] [address] Potassium [Moles/Vol] 4.6 mmol/L Normal 3.5 - 5.1 [facility] Comment on above: Performed By: #### 2 99418 #### [address] [address] Protein [Mass/Vol] 6.8 g/dL Normal 6.4 - 8.2 [facility] Comment on above: Performed By: #### 2 92574 #### [address] [address] Sodium [Moles/Vol] 140 mmol/L Normal 136 - 145 [facility] Comment on above: Performed By: #### 2 70438 #### [address] [address] Urea nitrogen [Mass/Vol] 16 mg/dL Normal 7 - 18 [facility] Comment on above: Performed By: #### 2 01530 #### [facility],[address] [place] [address] TSHon 01-07-2023 TSH Qn 0.01 m[IU]/L Low 0.35 - 3.74 [facility] Comment on above: Performed By: #### 2 93533 #### [facility],[address] [place], [place] [id number] HEMOGLOBIN A1C (POM)on 01-06 HbA1c (Bld) [Mass fraction] 5.4 % Normal 0.0 - 6.5 [facility] Comment on above: Result Comment: BLDo HEMOGLOBIN A1C REFERENCE RANGESBLDo Suggested Diagnosis HbA1c(%) HbA1C (mmol/mol Diabetic >/=6.5 >/=48 Prediabetes 5.7 - 6.4 39 - 47 Normal <5.7 <39 Performed By: #### 2 90415 #### [facility],[address] [place], [place] [id number] CV VENOUS LEG RTon CV VENOUS LEG RT [place] [address] Patient: YOLANDE GOMES Phone#: : 1980 Age: 42 Gender: F Pt. Type: Out Account: [id number] Location: Ordering: [facility] Exam Date: 12/17/2022/13:39 Family Phys: Charge Code: [id number] Physician: Obion Order #: [id number] Dose#: PROCEDURE: VENOUS DOPPLER RT LEG COMPARISON: None. INDICATIONS: Swelling TECHNIQUE: Color duplex Doppler ultrasound evaluation analysis was performed in the usual manner. SOCIALLY RESPONSIBLE INVESTMENT ADVISER: CATHY RISK FACTORS FOR VENOUS DISEASE: Other [...] PERONEAL V + GSV GASTROC SOLEAL V SOCIALLY RESPONSIBLE INVESTMENT ADVISER'S NOTES: FINDINGS: THROMBI: None visible. Continued Report - Page 2 of 2 Patient: YOLANDE GOMES Phone#: : 1980 Age: 42 Gender: F Pt. Type: Out Account: [id number] Location: Ordering: [facility] Exam Date: 12/17/2022/13:39 Family Phys: Charge Code: [id number] Physician: Obion Order #: [id number] Dose#: COMPRESSIBILITY: Normal. OTHER: Negative. CONCLUSION: 1. There is no evidence of superficial or deep vein thrombus. Dictated by: Meri Marroquin MD on 12/17/2022 at 14:18 Approved by: Meri Marroquin MD on 12/17/2022 at 14:19 Normal [facility] TSHon 05-13-2022 TSH Qn 2.48 m[IU]/L Normal 0.35 - 3.74 [facility] Comment on above: Performed By: #### 2 06311 #### [facility],[address] [place] [address] CBC (INCLUDES DIFF/PLT)on Basophils (Bld) [#/Vol] 0.058 10*3/uL Normal 0-200 [facility] Comment on above: Performed By: #### 6 399 #### [facility] [address], [address] [place], [place] [id number] Assembler Final: Rakan Ashraf MD Basophils/100 WBC (Bld) 0.7 % Normal [facility] Comment on above: Performed By: #### 6 399 #### [facility] [address], [address] [place], [place] [id number] Assembler Final: Rakan Ashraf MD Eosinophils (Bld) [#/Vol] 0.257 10*3/uL Normal 15-500 [facility] Comment on above: Performed By: #### 6 399 #### [facility] of [address], [address] [place] [address] Assembler Final: Rakan Ashraf MD Eosinophils/100 WBC (Bld) 3.1 % Normal [facility] Comment on above: Performed By: #### 6 399 #### [facility] of [place] [address] Assembler Final: Rakan Ashraf MD Erythrocyte distribution width (RBC) [Ratio] 12.0 % Normal 11.0-15.0 [facility] Comment on above: Performed By: #### 6 399 #### [facility] of [place] [address] Assembler Final: Rakan Ashraf MD Hematocrit (Bld) [Volume fraction] 42.6 % Normal 35.0-45.0 [facility] Comment on above: Performed By: #### 6 399 #### [facility] of [place] [address] Assembler Final: Rakan Ashraf MD Hemoglobin (Bld) [Mass/Vol] 14.6 g/dL Normal 11.7-15.5 [facility] Comment on above: Performed By: #### 6 399 #### [facility] of [place] [address] Assembler Final: Rakan Ashraf MD Lymphocytes (Bld) [#/Vol] 3.478 10*3/uL Normal 850-3900 [facility] Comment on above: Performed By: #### 6 399 #### [facility] of [address], [address] [place] [address] Assembler Final: Rakan Ashraf MD Lymphocytes/100 WBC (Bld) 41.9 % Normal [facility] Comment on above: Performed By: #### 6 399 #### [facility] of [place] [address] Assembler Final: Rakan Ashraf MD MCH (RBC) [Entitic mass] 30.8 pg Normal 27.0-33.0 [facility] Comment on above: Performed By: #### 6 399 #### [facility] of [place] [address] Assembler Final: Rakan Ashraf MD MCHC (RBC) [Mass/Vol] 34.3 g/dL Normal 32.0-36.[address] [facility] Comment on above: Performed By: #### 6 399 #### [facility] of [address], [address] [place] [address] Assembler Final: Rakan Ashraf MD MCV (RBC) [Entitic vol] 89.9 fL Normal 80.0-100.0 [facility] Comment on above: Performed By: #### 6 399 #### [facility] of [place] [address] Assembler Final: Rakan Ashraf MD Monocytes (Bld) [#/Vol] 0.573 10*3/uL Normal 200-950 [facility] Comment on above: Performed By: #### 6 399 #### [facility] of [place] [address] Assembler Final: Rakan Ashraf MD Monocytes/100 WBC (Bld) 6.9 % Normal [facility] Comment on above: Performed By: #### 6 399 #### [facility] of [place] [address] Assembler Final: Rakan Ashraf MD Neutrophils (Bld) [#/Vol] 3.934 10*3/uL Normal 4343-0714 [facility] Comment on above: Performed By: #### 6 399 #### [facility] of [place] [address] Assembler Final: Rakan Ashraf MD Neutrophils/100 WBC (Bld) 47.4 % Normal [facility] Comment on above: Performed By: #### 6 399 #### [facility] of [place] [address] Assembler Final: Rakan Ashraf MD Platelet mean volume (Bld) [Entitic vol] 10.4 fL Normal 7.5-12.5 [facility] Comment on above: Performed By: #### 6 399 #### [facility] [address], [address] [place] [address] Assembler Final: Rakan Ashraf MD Platelets (Bld) [#/Vol] 311 10*3/uL Normal 140-400 [facility] Comment on above: Performed By: #### 6 399 #### [facility] [address], [address] [place] [address] Assembler Final: Rakan Ashraf MD RBC (Bld) [#/Vol] 4.74 10*6/uL Normal 3.80-5.10 [facility] Comment on above: Performed By: #### 6 399 #### [facility] [address], [address] [place] [address] Assembler Final: Rakan Ashraf MD WBC (Bld) [#/Vol] 8.3 10*3/uL Normal 3.8-10.8 [facility] Comment on above: Performed By: #### 6 399 #### [facility] [place] [address] Assembler Final: Rakan Ashraf MD SARS CoV 2 SEROLOGY [...] providers and patients using the following websites: [employer]/home/Covid-19/HCP/antibody/fact-sheet1 [employer]/home/Covid-19/Patients/antibody/fact-sheet 1 This test has been authorized by the FDA under an Emergency Use Authorization (EUA) for use by authorized laboratories. The FDA authorized labeling is available on the [employer] website: www.[employer].iHandle/Covid19. For additional information please refer to http://education.AltheaDx/faq/XIQ504 (This link is being provided for informational/educational purposes only.) Performed By: #### 6 399 #### [facility] [address], [address] [place] [address] Assembler Final: Rakan Ashraf MD Coronavirus 2019on 0 COVID 19 Result PUBLIC RELATIONS OFFICER Normal Negative for COVID19 (SARS CoV2) by PCR. [facility] Comment on above: Result Comment: Nega tive for This test was developed and its performance characteristics determined by [facility]'s [facility] [place]. This test has been authorized by FDA [...] developed and its performance characteristics determined by [facility] [place]. This test has been authorized by FDA [...] developed and its performance characteristics determined by [facility] [place]. This test has been authorized by FDA under an Emergency Use Authorization (EUA). This test has been validated in accordance with the FDA's Guidance Document Policy for Diagnostics Testing in Laboratories Certified to Perform High Complexity Testing under CLIA prior to Emergency use Authorization for Coronavirus Disease 2019 during the Public Health Emergency issued on April 24, 2019. COVID 19 Source PUBLIC RELATIONS OFFICER Normal [facility] Comment on above: Result [...] diagnosis of diabetes in children. According to [place] Diabetes Association (ADA) guidelines, hemoglobin A1c <7.0% represents optimal control in non- diabetic patients. Different metrics may apply to specific patient populations. Standards of Medical Care in Diabetes(ADA). Performed By: #### 5 081, 49, 906, 11725, 866 #### [facility]-[address] [address] Assembler Final: Rakan Ashraf MD T3, 06-11-2019 Free T3 [Mass/Vol] 3.0 pg/mL Normal 2.3-4.2 [facility] Comment on above: Performed By: #### 5 081, 496, 403, 37947, 866 #### [facility]-[address] [address] Assembler Final: Rakan Ashraf MD T4, 06-11-2019 Free T4 [Mass/Vol] 1.1 ng/dL Normal 0.8-1.8 [facility] Comment on above: Performed By: #### 5 081, 496, 473, 78972, 866 #### [facility] [address] [facility], [address] [place] [address] Assembler Final: Rakan Ashraf MD THYROID PEROXIDASE ANTIBODIE Son 06-11-2019 THYROID PEROXIDASE ANTIBODIES 1 IU/mL Normal <9 [facility] Comment on above: Performed By: #### 5 081, 496, 899, [address]254, 866 #### [facility]-[address], [address] [place], [place] [id number] Assembler Final: Rakan Ashraf MD TSHon 06-11-2019 TSH Qn 2.18 m[IU]/L Normal [facility] Comment on above: Result Comment: Refe rence Range > or = 20 Years 0.40-4.50 Ranges First trimester 0.26-2.66 Second trimester 0.55-2.73 Third trimester 0.43-2.91 Performed By: #### 5 081, 496, 899, 87662, 866 #### [facility]-[address], [address] [place], [place] [id number] Assembler Final: Rakan Ashraf MD External Other: Preferred Me thod of Contacton 09-10-2016 methcontact [employer]key [employer] Work Phone: Patient's prefered method of contact [employer] Invalid Interpretation Code [facility] Work Phone: Office Visiton 09-10-2016 Documentation of current medications (procedure) Done Invalid Interpretation Code [facility] Work Phone: [phone] Fall risk assessment Fall risk assessment [facility] Work Phone: [phone] Protein mass conc Done [facility] Work Phone: [phone] Tobacco smoking status NHIS Never smoker [facility] Work Phone: [phone] Tobacco use CPHS Never smoker Invalid Interpretation Code [facility] Work Phone: [phone] Replaced Document: [facility] E CG Observationson 09-10-2016 EKG QRS axis 38 deg [facility] Work Phone: [phone] electrocardiogram interpretation Sinus Rhythm Diffuse low voltage. ABNORMAL Invalid Interpretation Code [facility] Work Phone: [phone] GE use only - for [employer] import when terms are not otherwise specified 387 ms Invalid Interpretation Code [employer] Work Phone: [phone] Interpretation Sinus Rhythm Diffuse low voltage. ABNORMAL [facility] Work Phone: [phone] P Young 43 deg [employer] Work Phone: [phone] P wave axis, electrocardiogram 43 deg Invalid Interpretation Code [employer] Work Phone: [phone] DC Interval 150 ms [employer] Work Phone: [phone] DC interval, electrocardiogram 150 ms Invalid Interpretation Code [employer] Work Phone: [phone] Pulse (Heart Rate) 80 /min Invalid Interpretation Code [employer] Work Phone: [phone] QRS axis, electrocardiogram 38 deg Invalid Interpretation Code [employer] Work Phone: [phone] QRS Duration 82 ms [employer] Work Phone: [phone] QRS duration, electrocardiogram 82 ms Invalid Interpretation Code [employer] Work Phone: [phone] QT Interval new path ms [employer] Work Phone: [phone] QT interval, electrocardiogram new path ms Invalid Interpretation Code [employer] Work Phone: [phone] QTc Duarte 387 ms [employer] Work Phone: [phone] T Young 24 deg [employer] Work Phone: [phone] T wave axis, electrocardiogram 24 deg Invalid Interpretation Code [employer] Work Phone: [phone] Clinical 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 Triglyceride 60 mg/dL [employer] Work Phone: [phone] Lab Report: Lipid Profileon 07-17-2015 Cholesterol 164 mg/dL 200 [employer] Work Phone: [phone] HDL Cholesterol 55 mg/dL [employer] Work Phone: [phone] LDL Cholesterol 86 mg/dL 0-130 [employer] Work Phone: [phone] very low density lipoproteins 23 mg/dL 5-40 [employer] Work Phone: [phone] Lab Report: Comprehensive Me tabolic Profilon 07-14-2015 Alanine aminotransferase (ALT) 24 U/L 12-78 [facility] Work Phone: [phone] Albumin 3.8 g/dL 3.4-5.0 [facility] Work Phone: [phone] Albumin/Globulin Ratio 1.3 {ratio} 0.9-2.4 [facility] Work Phone: [phone] Alkaline phosphatase (ALP) 51 U/L Invalid Interpretation Code 50-136 [facility] Work Phone: [phone] ALP enzyme act/vol (Bld) 51 U/L 50-[address] Work Phone: Anion gap 4 mmol/L Low 5-15 [facility] Work Phone: [phone] Anion gap molar conc 4 mmol/L Low 5-15 [facility] [place] [employer] Work Phone: Aspartate aminotransferase (AST) 16 U/L 15-37 [facility] Work Phone: [phone] Bilirubin (total) 1.10 mg/dL High 0.20-1.00 [facility] Work Phone: [phone] BUN/Creatinine Ratio 17.0 RATIO 10-[address] [facility] [address] [facility] Work Phone: [phone] Calcium 9.0 mg/dL 8.5-10.1 [facility] Work Phone: [phone] Chloride 105 mmol/L 98-107 [facility] Work Phone: [phone] CO2 32.0 mmol/L Invalid Interpretation Code 21.0-32.0 [facility] Work Phone: [phone] CO2 ppres (BldV) 32.0 mmol/L 21.0-32.0 [facility] Work Phone: Creatinine 0.71 mg/dL 0.55-1.20 [facility] Work Phone: [phone] eGFR (non-black) 120 mL/min/{1.73_m2} Invalid Interpretation Code >60 [facility] Work Phone: [phone] eGFR (non-black) 99 mL/min/{1.73_m2} >60 [employer] Work Phone: [phone] EST GFR - AA 120 mL/min >60 [employer] Work Phone: [phone] Globulin 3.0 g/dL Invalid Interpretation Code 2.3-3.5 [employer] Work Phone: [phone] Globulin mass conc (S) 3.0 g/dL 2.3-3.5 Bl [facility] [employer] Work Phone: [phone] Glucose 89 mg/dL Invalid Interpretation Code 70-110 [employer] Work Phone: [phone] Glucose mass conc 89 mg/dL 70-110 [employer] Work Phone: [phone] Potassium 4.4 mmol/L 3.5-5.1 [employer] Work Phone: [phone] Protein 6.8 g/dL 6.4-8.2 [employer] Work Phone: [phone] Sodium 141 mmol/L 136-145 [employer] Work Phone: [phone] Urea nitrogen 12 mg/dL 7-18 [employer] Work Phone: [phone] Lab Report: Hemoglobin A1con 07-14-2015 HbA1c 5.1 % 4.2-6.3 [employer] Work Phone: [phone] Office Visit: Establish Care on 07-03-2015 Alcoholism counseling (procedure) no Invalid Interpretation Code [employer] Work Phone: [phone] Documentation of current medications (procedure) Done Invalid Interpretation Code [employer] Work Phone: [phone] Protein mass conc Done [employer] Work Phone: [phone] Protein mass conc no [employer] Work Phone: [phone] Tobacco smoking status NHIS Never [employer] Work Phone: [phone] Tobacco smoking status NHIS Never smoker [employer] Work Phone: [phone] Tobacco use [facility] Never smoker Invalid Interpretation Code [employer] Work Phone: Vital Signs Date Time Vital Sign Value Performing Clinician Facility 10-21-2024 10:11-0400 Body temperature 97.9 [degF] Isiah Messina MD Work Phone: [facility] 10-21-2024 10:11-0400 Diastolic blood pressure 87 mm[Hg] Isiah Messina MD Work Phone: [facility] 10-21-2024 10:11-0400 Heart rate 81 /min Isiah Messina MD Work Phone: [facility] 10-21-2024 10:11-0400 Systolic blood pressure 133 mm[Hg] Isiah Messina MD Work Phone: [facility] 10-11-2024 15:29-0400 Body mass index (BMI) [Ratio] 30.46 kg/m2 Rio Sanchez MD Work Phone: [facility] 10-11-2024 15:29-0400 Body temperature 97.81 [degF] Rio Sanchez MD Work Phone: [facility] 10-11-2024 15:29-0400 Body weight 78 kg Rio Sanchez MD Work Phone: [facility] 10-11-2024 15:29-0400 Diastolic blood pressure 88 mm[Hg] Rio Sanchez MD Work Phone: [facility] 10-11-2024 15:29-0400 Heart rate 82 /min Rio Sanchez MD Work Phone: [facility] 10-11-2024 15:29-0400 SaO2% (BldA) [Mass fraction] 98 % Rio Sanchez MD Work Phone: [facility] 10-11-2024 15:29-0400 Systolic blood pressure 129 mm[Hg] Rio Sanchez MD Work Phone: [facility] 10-11-2024 12:41-0400 Body mass index (BMI) [Ratio] 30.46 kg/m2 Jaimee Randall MD Work Phone: [facility] 10-11-2024 12:41-0400 Body temperature 98.01 [degF] Jaimee Randall MD Work Phone: [facility] 10-11-2024 12:41-0400 Body weight 78 kg Jaimee Randall MD Work Phone: [facility] 10-11-2024 12:41-0400 Diastolic blood pressure 88 mm[Hg] Jaimee Randall MD Work Phone: [facility] 10-11-2024 12:41-0400 Heart rate 86 /min Jaimee Randall MD Work Phone: [facility] 10-11-2024 12:41-0400 Respiratory rate 18 /min Jaimee Randall MD Work Phone: [facility] 10-11-2024 12:41-0400 SaO2% (BldA) [Mass fraction] 99 % Jaimee Randall MD Work Phone: [facility] 10-11-2024 12:41-0400 Systolic blood pressure 137 mm[Hg] Jaimee Randall MD Work Phone: [facility] 10-01-2024 14:48-0400 Body mass index (BMI) [Ratio] 30.46 kg/m2 Isabela Jarod TRACK MAN.MANAGER [employer] Work Phone: [facility] 10-01-2024 14:48-0400 Body temperature 97.9 [degF] Isabela Jarod TRACK MAN.MANAGER [employer] Work Phone: [facility] 10-01-2024 14:48-0400 Body weight 78 kg Isabela [place] TRACK MAN.MANAGER [employer] Work Phone: [facility] 10-01-2024 14:48-0400 Diastolic blood pressure 91 mm[Hg] Isabela Jarod TRACK MAN.MANAGER [employer] Work Phone: [facility] 10-01-2024 14:48-0400 Heart rate 97 /min Isabela [place] TRACK MAN.MANAGER [employer] Work Phone: [facility] 10-01-2024 14:48-0400 SaO2% (BldA) [Mass fraction] 98 % Isabela Olivera TRACK MAN.MANAGER [employer] Work Phone: [facility] 10-01-2024 14:48-0400 Systolic blood pressure 128 mm[Hg] Isabela Olivera TRACK MAN.MANAGER [employer] Work Phone: [facility] 09-24-2024 11:05-0400 Body mass index (BMI) [Ratio] 30.58 kg/m2 Pradeep Taylor MD Work Phone: [facility] 09-24-2024 11:05-0400 Body temperature 97.81 [degF] Pradeep Taylor MD Work Phone: [facility] 09-24-2024 11:05-0400 Body weight 78.3 kg Pradeep Taylor MD Work Phone: [facility] 09-24-2024 11:05-0400 Diastolic blood pressure 96 mm[Hg] Pradeep Taylor MD Work Phone: [facility] Comment on above: c/o headache 09-24-2024 11:05-0400 Heart rate 81 /min Pradeep Taylor MD Work Phone: [facility] 09-24-2024 11:05-0400 Respiratory rate 20 /min Pradeep Taylor MD Work Phone: [facility] 09-24-2024 11:05-0400 SaO2% (BldA) [Mass fraction] 98 % Pradeep Taylor MD Work Phone: [facility] 09-24-2024 11:05-0400 Systolic blood pressure 150 mm[Hg] Pradeep Taylor MD Work Phone: [facility] Comment on above: c/o headache 08-30-2024 09:14-0400 Body height 160 cm Rio Sanchez MD Work Phone: [facility] 08-30-2024 09:14-0400 Body mass index (BMI) [Ratio] 30.38 kg/m2 Rio Sanchez MD Work Phone: [facility] 08-30-2024 09:14-0400 Body temperature 98.49 [degF] Rio Sanchez MD Work Phone: [facility] 08-30-2024 09:14-0400 Body weight 77.8 kg Rio Sanchez MD Work Phone: [facility] 08-30-2024 09:14-0400 Diastolic blood pressure 88 mm[Hg] Rio Sanchez MD Work Phone: [facility] 08-30-2024 09:14-0400 Heart rate 88 /min Rio Sanchez MD Work Phone: [facility] 08-30-2024 09:14-0400 SaO2% (BldA) [Mass fraction] 98 % Rio Sanchez MD Work Phone: [facility] 08-30-2024 09:14-0400 Systolic blood pressure 133 mm[Hg] Rio Sanchez MD Work Phone: [facility] 08-20-2024 07:28-0400 Body mass index (BMI) [Ratio] 30.03 kg/m2 Shelly Sheridan TRACK MAN.MANAGER HUMAN RESOURCES Work Phone: [facility] 08-20-2024 07:28-0400 Body temperature 97.3 [degF] Shelly Sheridan TRACK MAN.MANAGER [employer] Work Phone: [facility] 08-20-2024 07:28-0400 Body weight 76.9 kg Shelly Sheridan TRACK MAN.MANAGER [employer] Work Phone: [facility] 08-20-2024 07:28-0400 Diastolic blood pressure 90 mm[Hg] Shelly Rohan TRACK MAN.MANAGER [employer] Work Phone: [facility] 08-20-2024 07:28-0400 Heart rate 89 /min Shelly Sheridan TRACK MAN.MANAGER [employer] Work Phone: [facility] 08-20-2024 07:28-0400 Respiratory rate 18 /min Shelly Sheridan TRACK MAN.MANAGER [employer] Work Phone: [facility] 08-20-2024 07:28-0400 SaO2% (BldA) [Mass fraction] 99 % Shelly Sheridan TRACK MAN.MANAGER [employer] Work Phone: [facility] 08-20-2024 07:28-0400 Systolic blood pressure 131 mm[Hg] Shelly Sheridan TRACK MAN.MANAGER [employer] Work Phone: [facility] 08-19-2024 14:26-0400 Body temperature 98.2 [degF] Isiah Messina MD Work Phone: [facility] 08-19-2024 14:26-0400 Diastolic blood pressure 81 mm[Hg] Isiah Messina MD Work Phone: [facility] Comment on above: likely from the medication they just had her stop taking, she also has had migraines due to the medication 08-19-2024 14:26-0400 Heart rate 108 /min Isiah Messina MD Work Phone: [facility] 08-19-2024 14:26-0400 SaO2% (BldA) [Mass fraction] 95 % Isiah Messina MD Work Phone: [facility] 08-19-2024 14:26-0400 Systolic blood pressure 140 mm[Hg] Isiah Messina MD Work Phone: [facility] Comment on above: likely from the medication they just had her stop taking, she also has had migraines due to the medication 08-13-2024 09:13-0400 Body height 160 cm Aysha Roger MD Work Phone: [facility] 08-13-2024 09:13-0400 Body mass index (BMI) [Ratio] 29.64 kg/m2 Aysha Roger MD Work Phone: [facility] 08-13-2024 09:13-0400 Body weight 75.9 kg Aysha Roger MD Work Phone: [facility] 08-13-2024 09:13-0400 Diastolic blood pressure 91 mm[Hg] Aysha Roger MD Work Phone: [facility] 08-13-2024 09:13-0400 Systolic blood pressure 141 mm[Hg] Aysha Roger MD Work Phone: [facility] 08-05-2024 07:19-0400 Body temperature 98.3 [degF] [employer] PA-C Work Phone: [facility] 08-05-2024 07:19-0400 Diastolic blood pressure 87 mm[Hg] Una PA-C Work Phone: [facility] 08-05-2024 07:19-0400 Heart rate 85 /min [employer] PA-C Work Phone: [facility] 08-05-2024 07:19-0400 Respiratory rate 16 /min [employer] PA-C Work Phone: [facility] 08-05-2024 07:19-0400 SaO2% (BldA) [Mass fraction] 99 % [employer] PA-C Work Phone: [facility] 08-05-2024 07:19-0400 Systolic blood pressure 131 mm[Hg] Una PA-C Work Phone: [facility] 08-05-2024 06:12-0400 Body height 160.02 cm [employer] PA-C Work Phone: [facility] 08-05-2024 06:12-0400 Body mass index (BMI) [Ratio] 30.4 kg/m2 [employer] PA-C Work Phone: [facility] 08-05-2024 06:12-0400 Body weight 78.1 kg [employer] PA-C Work Phone: [facility] 07-29-2024 16:03-0400 Body height 160 cm Olga Nieves PA-C Work Phone: [facility] 07-29-2024 16:03-0400 Body mass index (BMI) [Ratio] 29.78 kg/m2 Olga Paskert PA-C Work Phone: [facility] 07-29-2024 16:03-0400 Body temperature 98.1 [degF] Olga Paskert PA-C Work Phone: [facility] 07-29-2024 16:03-0400 Body weight 76.25 kg Olga Paskert PA-C Work Phone: [facility] 07-29-2024 16:03-0400 Diastolic blood pressure 91 mm[Hg] Olga Paskert PA-C Work Phone: [facility] 07-29-2024 16:03-0400 Heart rate 93 /min Olga Paskert PA-C Work Phone: [facility] 07-29-2024 16:03-0400 Respiratory rate 16 /min Olga Paskert PA-C Work Phone: [facility] 07-29-2024 16:03-0400 SaO2% (BldA) [Mass fraction] 98 % Olga Paskert PA-C Work Phone: [facility] 07-29-2024 16:03-0400 Systolic blood pressure 115 mm[Hg] Olga Paskert PA-C Work Phone: [facility] 07-20-2024 13:17-0400 Body temperature 98.8 [degF] Olga Paskert PA-C Work Phone: [facility] 07-20-2024 13:17-0400 Diastolic blood pressure 73 mm[Hg] Olga Paskert PA-C Work Phone: [facility] 07-20-2024 13:17-0400 Heart rate 93 /min Olga Paskert PA-C Work Phone: [facility] 07-20-2024 13:17-0400 Respiratory rate 17 /min Olga Paskert PA-C Work Phone: [facility] 07-20-2024 13:17-0400 Systolic blood pressure 120 mm[Hg] Olga Paskert PA-C Work Phone: [facility] 07-16-2024 11:48-0400 Body temperature 98.3 [degF] Una PA-C Work Phone: [facility] 07-16-2024 11:48-0400 Diastolic blood pressure 80 mm[Hg] Una PA-C Work Phone: [facility] 07-16-2024 11:48-0400 Heart rate 90 /min Una PA-C Work Phone: [facility] 07-16-2024 11:48-0400 Respiratory rate 16 /min Una PA-C Work Phone: [facility] 07-16-2024 11:48-0400 SaO2% (BldA) [Mass fraction] 98 % Una PA-C Work Phone: [facility] 07-16-2024 11:48-0400 Systolic blood pressure 130 mm[Hg] Una PA-C Work Phone: [facility] 06-24-2024 13:33-0400 Body height 160 cm Olga Paskert PA-C Work Phone: [facility] 06-24-2024 13:33-0400 Body mass index (BMI) [Ratio] 28.52 kg/m2 Olga Paskert PA-C Work Phone: [facility] 06-24-2024 13:33-0400 Body temperature 97.2 [degF] Olga Paskert PA-C Work Phone: [facility] 06-24-2024 13:33-0400 Body weight 73.03 kg Olga Paskert PA-C Work Phone: [facility] 06-24-2024 13:33-0400 Diastolic blood pressure 60 mm[Hg] Olga Paskert PA-C Work Phone: [facility] 06-24-2024 13:33-0400 Heart rate 80 /min Olga Paskert PA-C Work Phone: [facility] 06-24-2024 13:33-0400 Systolic blood pressure 104 mm[Hg] Olga Paskert PA-C Work Phone: [facility] 06-23-2024 13:27-0400 Body mass index (BMI) [Ratio] 28.63 kg/m2 Nnamdi Fairbanks MD Work Phone: [facility] 06-23-2024 13:27-0400 Body temperature 98.2 [degF] Nnamdi Fairbanks MD Work Phone: [facility] 06-23-2024 13:27-0400 Body weight 73.3 kg Nnamdi Fairbanks MD Work Phone: [facility] 06-23-2024 13:27-0400 Diastolic blood pressure 82 mm[Hg] Nnamdi Fairbanks MD Work Phone: [facility] Comment on above: copied from prev appt 06-23-2024 13:27-0400 Heart rate 86 /min Nnamdi Fairbanks MD Work Phone: [facility] 06-23-2024 13:27-0400 Respiratory rate 20 /min Nnamdi Fairbanks MD Work Phone: [facility] 06-23-2024 13:27-0400 SaO2% (BldA) [Mass fraction] 100 % Nnamdi Fairbanks MD Work Phone: [facility] 06-23-2024 13:27-0400 Systolic blood pressure 126 mm[Hg] Nnamdi Fairbanks MD Work Phone: [facility] Comment on above: copied from prev appt 06-23-2024 12:46-0400 Body mass index (BMI) [Ratio] 28.63 kg/m2 Kary Rizzo APRN.CNP Work Phone: [facility] 06-23-2024 12:46-0400 Body temperature 98.2 [degF] Alexace Chandra [employer] Work Phone: [facility] 06-23-2024 12:46-0400 Body weight 73.3 kg Alexace Chandra [employer] Work Phone: [facility] 06-23-2024 12:46-0400 Diastolic blood pressure 82 mm[Hg] Alexace Chandra [employer] Work Phone: [facility] 06-23-2024 12:46-0400 Heart rate 86 /min Alexace Chandra [employer] Work Phone: [facility] 06-23-2024 12:46-0400 Respiratory rate 20 /min Alexace Chandra [employer] Work Phone: [facility] 06-23-2024 12:46-0400 SaO2% (BldA) [Mass fraction] 100 % Alexace Chandra [employer] Work Phone: [facility] 06-23-2024 12:46-0400 Systolic blood pressure 126 mm[Hg] Alexace Chandra [employer] Work Phone: [facility] 06-15-2024 10:09-0400 Body height 160 cm Pac 3 Work Phone: [facility] 06-15-2024 10:09-0400 Body mass index (BMI) [Ratio] 28.63 kg/m2 Pac 3 Work Phone: [facility] 06-15-2024 10:09-0400 Body temperature 98.6 [degF] Pac 3 Work Phone: [facility] 06-15-2024 10:09-0400 Body weight 73.3 kg Pac 3 Work Phone: [facility] 06-15-2024 10:09-0400 Diastolic blood pressure 76 mm[Hg] Pac 3 Work Phone: [place] [address]-22-2025 10:09-0400 Heart rate 92 /min Pac 3 Work Phone: [facility] 06-15-2024 10:09-0400 SaO2% (BldA) [Mass fraction] 98 % Pac 3 Work Phone: [facility] 06-15-2024 10:09-0400 Systolic blood pressure 117 mm[Hg] Pac 3 Work Phone: [facility] 06-03-2024 10:44-0400 Body height 162 cm Isiah Messina MD Work Phone: [facility] 06-03-2024 10:44-0400 Body mass index (BMI) [Ratio] 27.65 kg/m2 Isiah Messina MD Work Phone: [facility] 06-03-2024 10:44-0400 Body temperature 97.11 [degF] Isiah Messina MD Work Phone: [facility] 06-03-2024 10:44-0400 Body weight 72.58 kg Isiah Messina MD Work Phone: [facility] 06-03-2024 10:44-0400 Diastolic blood pressure 71 mm[Hg] Isiah Messina MD Work Phone: [facility] 06-03-2024 10:44-0400 Heart rate 89 /min Isiah Messina MD Work Phone: [facility] 06-03-2024 10:44-0400 Systolic blood pressure 114 mm[Hg] Isiah Messina MD Work Phone: [facility] 05-31-2024 08:27-0400 Body height 162 cm Pradeep Taylor MD Work Phone: [facility] 05-31-2024 08:27-0400 Body mass index (BMI) [Ratio] 28.12 kg/m2 Pradeep Taylor MD Work Phone: [facility] 05-31-2024 08:27-0400 Body temperature 98.29 [degF] Pradeep Taylor MD Work Phone: [facility] 05-31-2024 08:27-0400 Body weight 73.8 kg Pradeep Taylor MD Work Phone: [facility] 05-31-2024 08:27-0400 Diastolic blood pressure 78 mm[Hg] Pradeep Taylor MD Work Phone: [facility] 05-31-2024 08:27-0400 Heart rate 87 /min Pradeep Taylor MD Work Phone: [facility] 05-31-2024 08:27-0400 Respiratory rate 20 /min Pradeep Taylor MD Work Phone: [facility] 05-31-2024 08:27-0400 SaO2% (BldA) [Mass fraction] 99 % Pradeep Taylor MD Work Phone: [facility] 05-31-2024 08:27-0400 Systolic blood pressure 138 mm[Hg] Pradeep Taylor MD Work Phone: [facility] 05-10-2024 09:58-0400 Body height 157.5 cm Lissette Mcleod APRN.[employer] Work Phone: [facility] 05-10-2024 09:58-0400 Body mass index (BMI) [Ratio] 28.35 kg/m2 Lissettechristoph Mcleod [employer] Work Phone: [facility] 05-10-2024 09:58-0400 Body weight 70.31 kg Lissette Mcleod APRN.[employer] Work Phone: [facility] 04-19-2024 12:40-0500 Body temperature 97.8 [degF] for; to (do) PA-C Work Phone: [facility] 04-19-2024 12:40-0500 Diastolic blood pressure 66 mm[Hg] for; to (do) PA-C Work Phone: [facility] 04-19-2024 12:40-0500 Heart rate 84 /min for; to (do) PA-C Work Phone: [facility] 04-19-2024 12:40-0500 Respiratory rate 16 /min [employer] PA[employer]C Work Phone: [facility] 04-19-2024 12:40-0500 SaO2% (BldA) [Mass fraction] 99 % [employer] PA-C Work Phone: [facility] 04-19-2024 12:40-0500 Systolic blood pressure 127 mm[Hg] [employer] PA-C Work Phone: [facility] 04-19-2024 11:01-0500 Body mass index (BMI) [Ratio] 28.3 kg/m2 [employer] PA-C Work Phone: [facility] 04-19-2024 11:01-0500 Body weight 70.3 kg [employer] PA-C Work Phone: [facility] 04-16-2024 09:10-0500 Body temperature 98.6 [degF] [employer] PA-C Work Phone: [facility] 04-16-2024 09:10-0500 Diastolic blood pressure 66 mm[Hg] Una PA-C Work Phone: [facility] 04-16-2024 09:10-0500 Heart rate 100 /min [employer] PA-C Work Phone: [facility] 04-16-2024 09:10-0500 Respiratory rate 16 /min [employer] PA-C Work Phone: [facility] 04-16-2024 09:10-0500 SaO2% (BldA) [Mass fraction] 100 % [employer] PA-C Work Phone: [facility] 04-16-2024 09:10-0500 Systolic blood pressure 124 mm[Hg] [employer] PA-C Work Phone: [facility] 2024 19:06-0500 Body mass index (BMI) [Ratio] 29.31 kg/m2 Mateo Athy PA-C Work Phone: [facility] 01-07-2024 19:06-0500 Body temperature 97.3 [degF] Mateo Athy PA-C Work Phone: [facility] 01-07-2024 19:06-0500 Body weight 72.7 kg Mateo Athy PA-C Work Phone: [facility] 01-07-2024 19:06-0500 Diastolic blood pressure 70 mm[Hg] Mateo Athy PA-C Work Phone: [facility] 01-07-2024 19:06-0500 Heart rate 88 /min Mateo Athy PA-C Work Phone: [facility] 01-07-2024 19:06-0500 Respiratory rate 16 /min Mateo Athy PA-C Work Phone: [facility] 01-07-2024 19:06-0500 SaO2% (BldA) [Mass fraction] 99 % Mateo Athy PA-C Work Phone: [facility] 01-07-2024 19:06-0500 Systolic blood pressure 122 mm[Hg] Mateo Athy PA-C Work Phone: [facility] 10-13-2023 12:45-0400 Body height 157.5 cm Elly Cuellar MD Work Phone: [facility] 10-13-2023 12:45-0400 Body mass index (BMI) [Ratio] 28.35 kg/m2 Elly Cuellar MD Work Phone: [facility] 10-13-2023 12:45-0400 Body temperature 98.01 [degF] Elly Cuellar MD Work Phone: [facility] 10-13-2023 12:45-0400 Body weight 70.31 kg Elly Cuellar MD Work Phone: [facility] 10-13-2023 12:45-0400 Diastolic blood pressure 87 mm[Hg] Elly Cuellar MD Work Phone: [facility] 10-13-2023 12:45-0400 Heart rate 83 /min Elly Cuellar MD Work Phone: [facility] 10-13-2023 12:45-0400 SaO2% (BldA) [Mass fraction] 100 % Elly Cuellar MD Work Phone: [facility] 10-13-2023 12:45-0400 Systolic blood pressure 120 mm[Hg] Elly Cuellar MD Work Phone: [facility] 09-16-2023 15:17-0400 Body height 157.5 cm Elly Cuellar MD Work Phone: [facility] 09-16-2023 15:17-0400 Body mass index (BMI) [Ratio] 28.51 kg/m2 Elly Cuellar MD Work Phone: [facility] 09-16-2023 15:17-0400 Body temperature 97.59 [degF] Elly Cuellar MD Work Phone: [facility] 09-16-2023 15:17-0400 Body weight 70.7 kg Elly Cuellar MD Work Phone: [facility] 09-16-2023 15:17-0400 Diastolic blood pressure 76 mm[Hg] Elly Cuellar MD Work Phone: [facility] 09-16-2023 15:17-0400 Heart rate 90 /min Elly Cuellar MD Work Phone: [facility] 09-16-2023 15:17-0400 SaO2% (BldA) [Mass fraction] 99 % Elly Cuellar MD Work Phone: [facility] 09-16-2023 15:17-0400 Systolic blood pressure 132 mm[Hg] Elly Cuellar MD Work Phone: [facility] 08-18-2023 08:42-0400 Body height 160 cm Glory Armstrong MD Work Phone: [facility] 08-18-2023 08:42-0400 Body mass index (BMI) [Ratio] 28.06 kg/m2 Glory Armstrong MD Work Phone: [facility] 08-18-2023 08:42-0400 Body temperature 98.6 [degF] Glory Armstrong MD Work Phone: [facility] 08-18-2023 08:42-0400 Body weight 71.85 kg Glory Armstrong MD Work Phone: [facility] 08-18-2023 08:42-0400 Diastolic blood pressure 76 mm[Hg] Glory Armstrong MD Work Phone: [facility] 08-18-2023 08:42-0400 Heart rate 101 /min Glory Armstrong MD Work Phone: [facility] 08-18-2023 08:42-0400 SaO2% (BldA) [Mass fraction] 99 % Glory Armstrong MD Work Phone: [facility] 08-18-2023 08:42-0400 Systolic blood pressure 112 mm[Hg] Glory Armstrong MD Work Phone: [facility] 08-01-2023 14:45-0400 Body mass index (BMI) [Ratio] 27.77 kg/m2 Makayla Cochraner PA-C Work Phone: [facility] 08-01-2023 14:45-0400 Body weight 71.1 kg Makayla Cochraner PA-C Work Phone: [facility] 08-01-2023 14:45-0400 Diastolic blood pressure 81 mm[Hg] Makayla Cochraner PA-C Work Phone: [facility] 08-01-2023 14:45-0400 Heart rate 85 /min Makayla Cochraner PA-C Work Phone: [facility] 08-01-2023 14:45-0400 Respiratory rate 16 /min Makayla Jacobs PA-C Work Phone: [facility] 08-01-2023 14:45-0400 SaO2% (BldA) [Mass fraction] 100 % Makayla Jacobs PA-C Work Phone: [facility] 08-01-2023 14:45-0400 Systolic blood pressure 115 mm[Hg] Makayla Jacobs PA-C Work Phone: [facility] 07-22-2023 16:27-0400 Body height 160 cm Isabela Jarod [employer] Work Phone: [facility] 07-22-2023 16:27-0400 Body mass index (BMI) [Ratio] 27.81 kg/m2 Isabela [place] [employer] Work Phone: [facility] 07-22-2023 16:27-0400 Body weight 71.22 kg Isabela Jarod [employer] Work Phone: [facility] 07-22-2023 16:27-0400 Diastolic blood pressure 81 mm[Hg] Isabela Jarod [employer] Work Phone: [facility] 07-22-2023 16:27-0400 Heart rate 91 /min Isabela Jarod [employer] Work Phone: [facility] 07-22-2023 16:27-0400 Respiratory rate 16 /min Isabela [place] [employer] Work Phone: [facility] 07-22-2023 16:27-0400 SaO2% (BldA) [Mass fraction] 100 % Isabela Jarod [employer] MAN.[employer] Work Phone: [facility] 07-22-2023 16:27-0400 Systolic blood pressure 114 mm[Hg] Isabela [place] [employer] Work Phone: [facility] 05-15-2023 15:11-0400 Body weight 77 kg Crissy Colon MD Work Phone: [facility] 05-15-2023 15:11-0400 Diastolic blood pressure 81 mm[Hg] Crissy Colon MD Work Phone: [facility] 05-15-2023 15:11-0400 Heart rate 102 /min Crissy Colon MD Work Phone: [facility] 05-15-2023 15:11-0400 Respiratory rate 16 /min Crissy Colon MD Work Phone: [facility] 05-15-2023 15:11-0400 SaO2% (BldA) [Mass fraction] 98 % Crissy Colon MD Work Phone: [facility] 05-15-2023 15:11-0400 Systolic blood pressure 115 mm[Hg] Crissy Colon MD Work Phone: [facility] 08-23-2022 08:34-0400 Body height 157.48 cm PA-C for; to (do) PA Work Phone: [facility] 08-23-2022 08:24-0400 Body mass index (BMI) [Ratio] 32.1 kg/m2 PA-C for; to (do) PA Work Phone: [facility] 08-23-2022 08:24-0400 Body weight 79.6 kg PA-C for; to (do) PA Work Phone: [facility] 08-23-2022 08:24-0400 Diastolic blood pressure 76 mm[Hg] PA-C for; to (do) PA Work Phone: [facility] 08-23-2022 08:24-0400 Systolic blood pressure 116 mm[Hg] PA-C for; to (do) PA Work Phone: [facility] 09-10-2016 15:04-0400 BMI (Body Mass Index) 27.9 kg/m2 Josephine Meadows [facility] Work Phone: 09-10-2016 15:04-0400 BP Diastolic 60 mm[Hg] [facility] Work Phone: 09-10-2016 15:04-0400 BP Systolic 90 mm[Hg] [facility] Work Phone: 09-10-2016 15:04-0400 Height 158.75 cm [facility] Work Phone: 09-10-2016 15:04-0400 Pulse [...] BP Diastolic 88 mm[Hg] Jessi Cortés RN [facility] Work Phone: 07-03-2015 09:16-0400 BP Systolic 128 mm[Hg] Jessi Cortés RN [facility] Work Phone: 07-03-2015 09:16-0400 BSA (Body Surface Area) 1.68 m2 Jessi Cortés RN [facility] Work Phone: 07-03-2015 09:16-0400 Height 157.48 cm Jessi Cortés RN [facility] Work Phone: 07-03-2015 09:16-0400 Pulse (Heart Rate) 80 /min Jessi Cortés RN [facility] Work Phone: 07-03-2015 09:16-0400 Respiratory Rate 16 /min Jessi Cortés RN [employer] Work Phone: 07-03-2015 09:160400 Weight 67.13 kg Jessi Cortés RN [employer] Work Phone: Encounters Encounter Date Encounter Type Care Provider Facility Start: 10-26-2024 ambulatory [facility] Facility :[facility] Start: 10-21-2024 End: 10-21-2024 Office outpatient visit 25 minutes Isiah Messina MD Work Phone: Plastic Surgery Comment on above: History of right quita ast cancer (Primary Dx); History of mastectomy, bilateral; S/P breast reconstruction; Encounter to discuss breast reconstruction Start: 10-21-2024 [facility] Start: 10-18-2024 End: 10-18-2024 ambulatory Kimberly Hidalgo OTR/L Work Phone: [facility] Occupational Therapy Comment on above: Decreased range of m otion of right shoulder (Primary Dx); Decreased range of motion of left shoulder; Breast pain; At risk for lymphedema; S/P breast reconstruction Start: 10-11-2024 End: 10-12-2024 Patient encounter procedure Jaimee Randall MD Work Phone: Hematology/Oncology Start: 10-11-2024 End: 10-12-2024 ambulatory Jaimee Randall MD Work Phone: Hematology/Oncology Comment on above: Malignant neoplasm o f breast, stage 1, estrogen receptor positive, unspecified laterality (HCC) (Primary Dx); Vaginal dryness; Anxiety; 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) Malignant neoplasm o f breast, stage 1, estrogen receptor positive, unspecified laterality (HCC) (Primary Dx) Start: 10-11-2024 Encounter for genera l adult medical examination without abnormal findings JAIMEE RANDALL [facility] Start: 10-06-2024 End: 10-07-2024 ambulatory Rio Sanchez MD Work Phone: Gynecology Oncology Comment on above: Painful intercourse Start: 10-04-2024 End: 10-04-2024 Telephone encounter Patricia Mayfield RN Gynecology Oncology Comment on above: Appointment Start: 10-01-2024 End: 10-01-2024 Patient encounter procedure Isabela [place] ALANNA Work Phone: [facility] Comment on above: Routine general medi benigno examination at a health care facility (Primary Dx); Polycystic ovarian disease; Hypertension, essential; Hypothyroidism, acquired; Thyroid nodule; Invasive ductal carcinoma of breast, right (HCC); Migraine with aura and without status migrainosus, not intractable; 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 and with status migrainosus; Screening for depression; Special screening examination for viral disease; Screening for HIV (human immunodeficiency virus) Start: 10-01-2024 End: 10-01-2024 Patient encounter status Isabela Terrylisa JEREZMANAGER HUMAN RESOURCES Work Phone: [facility] Work Phone: Start: 10-01-2024 End: 10-01-2024 ambulatory [facility] Facility:[facility] Start: 10-01-2024 Encounter for genera l adult medical examination without abnormal findings [facility] Start: 09-29-2024 End: 10-04-2024 Refill Glory Armstrong MD Work Phone: Endocrinology Comment on above: Refill Request Start: 09-27-2024 End: 09-27-2024 ambulatory Kimberly Hidalgo OTR/L Work Phone: [facility] Occupational Therapy Comment on above: Decreased range of m otion of right shoulder (Primary Dx); Decreased range of motion of left shoulder; Breast pain; At risk for lymphedema; S/P breast reconstruction Start: 09-24-2024 End: 09-24-2024 Patient encounter procedure Pradeep Taylor MD Work Phone: [facility] Comment on above: Encounter for postop erative examination after surgery for malignant neoplasm (Primary Dx); Invasive ductal carcinoma of right breast (HCC) Start: 09-24-2024 End: 09-24-2024 ambulatory PRADEEP TAYLOR Facility:[facility] Start: 09-13-2024 End: 09-13-2024 ambulatory ISIAH MESSINA Facility:[facility] Start: 09-13-2024 End: 09-13-[address] (I-Stat) Work Phone: [facility] Start: 09-13-2024 End: 09-13-2024 Subsequent hospital visit by physician Ct Main F30 (I-Stat) Work Phone: Radiology Start: 09-10-2024 End: 09-10-2024 Patient encounter procedure Us Tech 1 Wstr Mob OB/Gynecology Start: 09-10-2024 End: 09-10-2024 ambulatory [employer] Work Phone: OB/Gynecology Start: 09-06-2024 End: 09-06-2024 ambulatory Kimberly Hidalgo OTR/L Work Phone: [facility] Occupational Therapy Comment on above: Decreased range of m otion of right shoulder (Primary Dx); Decreased range of motion of left shoulder; Breast pain; At risk for lymphedema; S/P breast reconstruction Start: 09-03-2024 End: 09-03-2024 ambulatory Jaimee Randall MD Work Phone: Hematology/Oncology Start: 09-03-2024 End: 09-03-2024 E-mail encounter from caregiver Jaimee Randall MD Work Phone: Hematology/Oncology Start: 08-30-2024 End: 08-30-2024 Patient encounter procedure Rio Sanchez MD Work Phone: Gynecology Oncology Start: 08-30-2024 End: 08-30-2024 ambulatory Rio Sanchez MD Work Phone: Gynecology Oncology Comment on above: Abnormal uterine ble eding (AUB) (Primary Dx); Malignant neoplasm of breast, stage 1, estrogen receptor positive, unspecified laterality (HCC); Ductal carcinoma in situ (DCIS) of right breast; examination or test, unconfirmed Start: 08-29-2024 End: 08-29-2024 Orders Only Jaimee Randall MD Work Phone: Hematology/Oncology Comment on above: Drug-induced headach e, not elsewhere classified, not intractable (Primary Dx) Start: 08-23-2024 End: 08-23-2024 Orders Only Shelly Sheridan APRN.MANAGER HUMAN RESOURCES Work Phone: Hematology/Oncology Comment on above: Headaches (Primary D x); Nausea; Dizziness MRI cancelled Start: 08-21-2024 End: 08-21-2024 Emergency department patient visit [facility] Facility:[facility] Start: 08-20-2024 End: 08-20-2024 Patient encounter procedure Shelly Sheridan APRN.MANAGER HUMAN RESOURCES Work Phone: Hematology/Oncology Start: 08-20-2024 End: 08-20-2024 ambulatory Shelly Sheridan APRN.MANAGER HUMAN RESOURCES Work Phone: Hematology/Oncology Comment on above: Ductal carcinoma in situ (DCIS) of right breast (Primary Dx); Headaches; Nausea; Dizziness; Migraine without aura, not intractable, without status migrainosus; Family history of stroke Start: 08-19-2024 End: 08-19-2024 Patient encounter status Isiah Messina MD Work Phone: [facility] Start: 08-19-2024 End: 08-19-2024 Postop follow up visit related to original px Isiah Messina MD Work Phone: Plastic Surgery Comment on above: History of breast ca ncer (Primary Dx); S/P breast reconstruction; Encounter for other preprocedural examination; History of breast reconstruction; History of bilateral mastectomy; Hypoesthesia of skin Start: 08-19-2024 End: 08-19-2024 ambulatory JAIMEE RANDALL Facility:[facility] Start: 08-19-2024 Encounter for other preprocedural examination ISIAH MESSINA [facility] Start: 08-19-2024 End: 08-19-2024 Chart abstracting Isiah Messina MD Work Phone: Plastic Surgery Comment on above: PHOTOS TAKEN Start: 08-19-2024 End: 10-19-2024 Follow-up encounter Aysha Lafaire MD Work Phone: URO/Gynecology Start: 08-19-2024 End: 08-19-2024 Telephone encounter Jaimee Randall MD Work Phone: Hematology/Oncology Comment on above: 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) Start: 08-16-2024 End: 08-16-2024 ambulatory Kimberly Hidalgo OTR/L Work Phone: [facility] Occupational Therapy Comment on above: Decreased range of m otion of right shoulder (Primary Dx); Decreased range of motion of left shoulder; Breast pain; At risk for lymphedema; S/P breast reconstruction Start: 08-13-2024 End: 08-13-2024 Office outpatient new 30 minutes Aysha Roger MD Work Phone: Gynecology Comment on above: Malignant neoplasm o f breast, stage 1, estrogen receptor positive, unspecified laterality (HCC); Encounter for screening for malignant neoplasm of cervix Start: 08-13-2024 End: 08-13-2024 ambulatory JAIMEE RANDALL Facility:[facility] Start: 08-05-2024 End: 08-05-2024 Emergency department patient visit Kimberly Kumari PA-C Work Phone: -Emergency Department Work Phone: Start: 07-29-2024 End: 07-29-2024 Patient encounter procedure Olga Nieves PA-C Work Phone: Plastic Surgery Comment on above: Post-operative state (Primary Dx) Start: 07-29-2024 End: 07-29-2024 ambulatory [facility] Facility:[facility] Start: 07-29-2024 End: 07-29-2024 Chart abstracting Isiah Messina MD Work Phone: Plastic Surgery Comment on above: PHOTOS TAKEN Start: 07-20-2024 End: 07-20-2024 Patient encounter procedure Olga Nieves PA-C Work Phone: Plastic Surgery Comment on above: Post-operative state (Primary Dx) Start: 07-20-2024 End: 07-20-2024 ambulatory Injection Swapnil Main Ca3 Work Phone: Hematology/Oncology Comment on above: Ductal carcinoma in situ (DCIS) of right breast (Primary Dx) Start: 07-16-2024 End: 07-16-2024 Patient encounter procedure [facility] Work Phone: Start: 07-16-2024 End: 07-16-2024 ambulatory Alex CERVANTES Facility:[facility] Start: 07-15-2024 End: 07-15-2024 ambulatory [facility] Facility:[facility] Start: 07-14-2024 End: 07-14-2024 ambulatory [facility] Facility:[facility] Start: 07-06-2024 End: 07-06-2024 ambulatory PRADEEP TAYLOR Facility:[facility] Start: 07-05-2024 End: 07-05-2024 ambulatory JAIMEE RANDALL Facility:[facility] Start: 07-01-2024 End: 07-01-2024 ambulatory [facility] Facility:[facility] Start: 06-30-2024 End: 06-30-2024 Orders Only Pradeep Taylor MD Work Phone: General Surgery Comment on above: Invasive ductal carc inoma of right breast (HCC) (Primary Dx); 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); Invasive ductal carcinoma of right breast (HCC) Start: 06-24-2024 End: 06-24-2024 Telephone encounter Natty Jade RN Work Phone: Breast Center Comment on above: Returning Patient's Call Start: 06-24-2024 End: 06-24-2024 Patient encounter procedure Olga Nieves PA-C Work Phone: Plastic Surgery Comment on above: Post-operative state (Primary Dx); Post-operative pain Start: 06-24-2024 End: 06-24-2024 ambulatory [facility] Facility:[facility] Start: 06-23-2024 End: 06-23-2024 Patient encounter procedure Nnamdi Fairbanks MD Work Phone: Radiation Oncology Comment on above: Ductal carcinoma in situ (DCIS) of right breast Start: 06-23-2024 End: 06-23-2024 Postop follow up visit related to original px Kary Rizzo ALANNA Work Phone: [facility] Comment on above: Encounter for postop erative examination after surgery for malignant neoplasm (Primary Dx); Ductal carcinoma in situ (DCIS) of right breast; Invasive ductal carcinoma of right breast (HCC) Start: 06-23-2024 End: 06-23-2024 ambulatory [facility] Facility:[facility] Start: 06-16-2024 End: 06-16-2024 [facility] Facility:[facility] Start: 06-15-2024 End: 06-15-2024 Preprocedural examination done Pac Main 3 Work Phone: [facility] Work Phone: Start: 06-15-2024 End: 06-15-2024 Patient encounter status Pac Main 3 Work Phone: [facility] Start: 06-15-2024 Encounter for other preprocedural examination JAIMEE RANDALL [facility] Start: 06-15-2024 End: 06-15-2024 [facility] Main 3 Work Phone: Pre Anesthesia Comment on above: Preoperative examina tion (Primary Dx); Hypothyroidism, acquired; Bipolar 1 disorder (HCC); Anxiety; Ductal carcinoma in situ (DCIS) of right breast; Pre-op testing; Migraine without status migrainosus, not intractable, unspecified migraine type 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] Start: 06-15-2024 End: 06-15-2024 [facility] Facility:[facility] Start: 06-09-2024 End: 06-09-2024 Orders Only Jaimee Randall MD Work Phone: Hematology/Oncology Start: 06-07-2024 End: 06-07-2024 Telephone encounter Lakisha Boss PA-C Work Phone: [facility] Start: 06-06-2024 End: 08-06-2024 Follow-up encounter Tawnya Anne MS Work Phone: [facility] Start: 06-03-2024 End: 06-03-2024 Chart abstracting Isiah Messina MD Work Phone: Plastic Surgery Comment on above: PHOTOS TAKEN Start: 06-03-2024 End: 06-12-2024 Office outpatient new 45 minutes Isiah Messina MD Work Phone: Plastic Surgery Comment on above: Ductal carcinoma in situ (DCIS) of right breast (Primary Dx); Encounter to discuss breast reconstruction Start: 06-03-2024 End: 06-03-2024 ambulatory PRADEEP TAYLOR Facility:[facility] Start: 06-01-2024 End: 06-01-2024 Patient encounter status Pradeep Taylor MD Work Phone: [facility] Start: 06-01-2024 End: 06-08-2024 Orders Only Pradeep Taylor MD Work Phone: Hematology/Oncology Comment on above: 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); Pre-op testing Start: 05-31-2024 End: 05-31-2024 Patient encounter status Pradeep Taylor MD Work Phone: [facility] Start: 05-31-2024 Encounter for other preprocedural examination JAIMEE RANDALL [facility] Start: 05-31-2024 End: 05-31-2024 Orders Only Pradeep Taylor MD Work Phone: Hematology/Oncology Comment on above: Ductal carcinoma in situ (DCIS) of right breast (Primary Dx); Pre-op testing Nipple discharge (Pr imary Dx); Ductal carcinoma in situ (DCIS) of right breast; Atypical ductal hyperplasia of right breast Pre-Op Teaching Start: 05-28-2024 End: 05-28-2024 ambulatory Pradeep Taylor MD Work Phone: Breast Center Comment on above: GENETIC TESTING Start: 05-28-2024 End: 05-28-2024 E-mail encounter from caregiver Pradeep Taylor MD Work Phone: [facility] Start: 05-28-2024 End: 05-28-2024 Telephone encounter Drea Cabrera RN Mammography Comment on above: Results; Appointment Start: 05-27-2024 ambulatory [facility] Start: 05-27-2024 End: 05-27-2024 Subsequent hospital visit by physician Mri Main A10 (Large Bore/1.5t) Work Phone: MRI A10 Comment on above: Abnormal finding on radiology exam [R93.89] Start: 05-24-2024 End: 05-24-2024 Telephone encounter Ewa Rouse RN Work Phone: Mammography Comment on above: Results Start: 05-20-2024 ambulatory [facility] Start: 05-20-2024 End: 05-20-2024 Subsequent hospital visit by physician Procedure Mammo [place] Work Phone: [facility] Radiology Mammography Comment on above: Abnormal finding on radiology exam [R93.89] Start: 05-11-2024 End: 07-12-2024 Follow-up encounter Lissette Mcleod APRN.CNP Work Phone: [facility] Start: 05-10-2024 End: 05-10-2024 ambulatory LISSETTE MCLEOD Facility:[facility] Start: 05-10-2024 End: 05-10-2024 Telephone encounter Lissette Mcleod APRN.CNP Work Phone: [facility] Start: 05-10-2024 End: 05-10-2024 Patient encounter procedure Lissette Mcleod APRN.CNP Work Phone: [facility] Comment on above: Breast pain (Primary Dx); Bilateral fibrocystic breast changes; Nipple discharge; Abnormal MRI, breast Start: 05-10-2024 End: 05-10-2024 Subsequent hospital visit by physician Clinic Imaging Mammo Main Mammography Comment on above: Breast pain [N64.4] Start: 05-10-2024 End: 05-10-2024 ambulatory LISSETTE JAYCEE Facility:[facility] Start: 05-05-2024 End: 05-05-2024 ambulatory Jesse Monique MD Work Phone: Mammography Comment on above: Radio Imaging Study Comments Start: 05-05-2024 End: 05-05-2024 Patient encounter procedure Jesse Monique MD Work Phone: Mammography Start: 05-03-2024 End: 05-03-2024 ambulatory ISABELA OLIVERA Facility:[facility] Start: 04-30-2024 End: 04-30-2024 Telephone encounter Drea Cabrera RN Mammography Comment on above: Patient Update Start: 04-28-2024 End: 04-30-2024 Telephone encounter Ewa Rouse RN Work Phone: Mammography Comment on above: Outside Recommended Biopsy Review Start: 04-21-2024 End: 04-21-2024 Telephone encounter No One (Historical) Referring Physician Start: 04-19-2024 End: 04-19-2024 Emergency department patient visit Dr. Sukhjinder Lopez DO -Emergency Department Work Phone: Start: 04-16-2024 End: 04-16-2024 Patient encounter procedure Alex CERVANTES -[facility] Work Phone: Start: 04-16-2024 End: 04-16-2024 ambulatory Alex CERVANTES Facility:[facility] Start: 04-13-2024 End: 04-13-[address] Marina Guzman DO -[facility] Work Phone: Start: 04-13-2024 End: 04-13-2024 ambulatory Marina Guzman Facility:[facility] Start: 03-31-2024 End: 03-31-2024 ambulatory Glory Armstrong MD Work Phone: Endocrinology Comment on above: Hypothyroidism, acqu ired Start: 03-31-2024 End: 03-31-2024 Telemedicine consultation with patient Glory Armstrong MD Work Phone: Endocrinology Start: 03-08-2024 End: 01-13-2025 ambulatory Marina Guzman Facility:[facility] Start: 01-30-2024 End: 02-02-2024 ambulatory Glory Armstrong MD Work Phone: Endocrinology Comment on above: Bloodwork? Start: 01-07-2024 End: 01-07-2024 Subsequent hospital visit by physician Xr [facility] Work Phone: Radiology Comment on above: Viral URI [J06.9] Start: 01-07-2024 End: 01-07-2024 ambulatory [facility] Facility:[facility] Start: 01-07-2024 End: 01-07-2024 Patient encounter procedure Mateo Samano PA-C Work Phone: [facility] Comment on above: Sore throat (Primary Dx); Viral URI Start: 12-28-2023 End: 12-30-2023 Refill Crissy Colon MD Work Phone: Neurology Comment on above: Refill Request Start: 12-16-2023 End: 12-16-2023 [facility] Facility:[facility] Start: 12-16-2023 End: 12-16-2023 Subsequent hospital visit by physician [facility] (I-Stat) Work Phone: Cat Scan Comment on above: 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 and with status migrainosus [G43.011] Start: 12-12-2023 End: 12-12-2023 ambulatory [facility] Facility:[facility] Start: 11-28-2023 End: 11-28-2023 ambulatory [facility] Facility:[facility] Start: 11-28-2023 End: 11-28-2023 Office outpatient visit 25 minutes Crissy Colon MD Work Phone: Neurology Comment on above: 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 and with status migrainosus (Primary Dx) Start: 11-26-2023 End: 11-26-2023 ambulatory [facility] Facility:[facility] Start: 11-25-2023 End: 11-26-2023 Refill Crissy Colon MD Work Phone: Neurology Comment on above: Refill Request Start: 11-21-2023 End: 11-21-2023 Refill Crissy Colon MD Work Phone: Neurology Comment on above: Refill Request Start: 2023 End: 2023 Refill Crissy Colon MD Work Phone: Neurology Comment on above: Refill Request Start: 10-13-2023 End: 10-13-2023 Patient encounter procedure Elly Cuellar MD Work Phone: Neurology Comment on above: Bilateral occipital neuralgia (Primary Dx) Start: 10-13-2023 End: 10-13-2023 ambulatory [facility] Start: 10-09-2023 Refill Glory Armstrong MD Work Phone: Endocrinology Comment on above: Refill Request Start: 09-16-2023 End: 09-16-2023 Patient encounter procedure Elly Cuellar MD Work Phone: Neurology Comment on above: APPOINTMENT CANCELLE D (Primary Dx) Start: 09-16-2023 ambulatory [facility] Start: 08-28-2023 ambulatory Glory Armstrong MD Work Phone: Endocrinology Comment on above: Thyroid test results Start: 08-27-2023 Telephone encounter Crissy johns MD Work Phone: Neurology Comment on above: Appointment (Appoint ment Cancelled: 08/29/2023) Start: 08-18-2023 End: 08-18-2023 Patient encounter procedure Glory Armstrong MD Work Phone: Endocrinology Comment on above: Hypothyroidism, acqu ired (Primary Dx) Start: 08-08-2023 End: 08-08-2023 ambulatory Elly Cuellar MD Work Phone: Neurology Comment on above: Occipital pain (Prim natalia Dx) Start: 08-08-2023 End: 08-08-2023 Telemedicine consultation with patient Elly Cuellar MD Work Phone: Neurology Start: 08-05-2023 Telephone encounter Isabela appiah APRN.MANAGER HUMAN RESOURCES Work Phone: [facility] Comment on above: Initial Consult (Subha matology referral) Start: 08-04-2023 Telephone encounter Crissy johns MD Work Phone: Neurology Comment on above: Patient Question Start: 08-01-2023 End: 08-01-2023 Patient encounter procedure Makayla Jacobs PA-C Work Phone: Neurology Comment on above: 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 and without status migrainosus (Primary Dx); Paresthesia of skin Start: 07-24-2023 End: 07-24-2023 Subsequent hospital visit by physician Rain [facility] Work Phone: Radiology Comment on above: Cervicalgia [M54.2] Start: 07-22-2023 End: 07-22-2023 Patient encounter procedure Isabela Olivera APRN.MANAGER HUMAN RESOURCES Work Phone: [facility] Comment on above: [facility] ([facility] Paresthesia; Scalp pain; Myalgias; Cervicalgia; Polycystic ovarian disease; Hypothyroidism, acquired; Chronic fatigue; Thyroid nodule Start: 06-04-2023 Refill Crissy Colon MD Work Phone: Pain Management Comment on above: Refill Request Start: 05-26-2023 Refill Crissy Colon MD Work Phone: Neurology Comment on above: Refill Request Start: 05-15-2023 End: 05-15-2023 Office outpatient new 60 minutes Crissy Colon MD Work Phone: Neurology Comment on above: Migraine with aura a nd with status migrainosus, not intractable (Primary Dx) Start: 04-10-2023 End: 04-10-2023 ambulatory [facility] Start: 01-07-2023 End: 01-07-2023 ambulatory [facility] Start: 12-17-2022 End: 12-17-2022 ambulatory [facility] Start: 08-23-2022 End: 08-23-2022 ambulatory AVELINO Kimberly Kumari PA Work Phone: [facility] Work Phone: Start: 08-23-2022 End: 08-23-2022 Patient encounter procedure AVELINO Una PA Work Phone: [facility]atory, Specimen Work Phone: Start: 08-23-2022 End: 08-23-2022 Patient encounter procedure AVELINO Una PA Work Phone: [facility] Work Phone: Start: 05-13-2022 End: 05-13-2022 ambulatory [facility] Procedures Date Procedure Procedure Detail Performing Clinician Start: 10-11-2024 Lipid 1996 panel - Serum or Plasma Jaimee Randall MD Work Phone: Start: 09-13-2024 Ct angio abd&plvis cntrst mtrl w/wo cntrst img Isiah Messina MD Work Phone: Start: 09-10-2024 Us pelvic nonobstetric real-time image complete Rio Sanchez MD Work Phone: Start: 08-30-2024 UA DIP,URINE HCG (POC) Rio Sanchez MD Work Phone: Start: 06-15-2024 Inj radioactive tracer for id of sentinel node Pradeep Taylor MD Work Phone: Start: 05-27-2024 Digital breast tomosynthesis unilateral Radha Kamara MD Work Phone: Start: 05-27-2024 End: 05-27-2024 Bx breast w/device 1st lesion magnetic res guid Radha Kamara MD Work Phone: Start: 05-20-2024 Digital breast tomosynthesis unilateral Radha Kamara MD Work Phone: Start: 05-20-2024 Bx breast w/device 1st lesion ultrasound guid Radha Kamara MD Work Phone: Start: 05-10-2024 End: 05-10-2024 Us breast uni real time with image limited Lissette Mcleod APRNNicMANAGER HUMAN RESOURCES Work Phone: Start: 05-10-2024 Digital breast tomosynthesis bilateral Lissette Mcleod APRCarineMANAGER HUMAN RESOURCES Work Phone: Start: 04-19-2024 X-ray of chest, PA and lateral views Kimberly Kumari PA-C Work Phone: Start: 04-13-2024 MRI of bilateral breasts with contrast Kimberly Kumari PA-C Work Phone: Start: 01-07-2024 Radiologic exam chest 2 views Mateo Tj Samano PA-C Work Phone: Start: 01-07-2024 STREP A MOLECULAR (POC) Mateo R Athy PA-C Work Phone: Start: 12-16-2023 Ct head/brain w/o contrast material Crissy Colon MD Work Phone: Start: 09-10-2016 End: 09-10-2016 DJN Sukhjinder Maurice MD Work Phone: Start: 09-10-2016 End: 09-10-2016 Follow Up Appt 2 months Sukhjinder Maurice MD Work Phone: Start: 07-03-2015 Lipid 1996 panel - Serum or Plasma Crissy Colon MD Work Phone: Start: 07-03-2015 End: 07-17-2015 *CMP Complete Metabolic Panel Kimberly Kumari PA-C Work Phone: Start: 07-03-2015 End: 07-17-2015 HbA1c Kimberly Kumari PA- C Work Phone: Start: 07-03-2015 End: 07-17-2015 Lipid panel [AGGREGATE] Kimberly Kumari PA-C Work Phone: Start: 02-04-2014 Lipid 1996 panel - Serum or Plasma Procedure Estela Work Phone: History of bilateral mastectomy History of bilateral mastectomy Isiah Messina MD Work Phone: History of bilateral mastectomy History of mastectomy, bilateral Isiah Messina MD Work Phone: Plan of Treatment Date Care Activity Detail Author Start: 10-11-2029 Lipid panel Lipid Screening [facility] Start: 08-13-2029 Screening for malign ant neoplasm of cervix Cervical Cancer Screening [facility] Start: 08-22-2027 [facility] Start: 06-01-2027 [facility] Start: 07-23-2026 Diabetes Screening Diabetes Screenin [facility] Start: 04-08-2026 Urine microalbumin profile DTaP,Tdap,Td Vaccine (6 - Td or Tdap) [facility] Start: 10-01-2025 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 Weld Fitter greg Disease Visit 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 Chronic Disease Visit [facility] Start: 10-01-2025 Screening for malign ant neoplasm of colon Colorectal Cancer Screening [facility] Comment on above: Postponed from 11/13 (Postponed To Appropriate Date) Start: 05-10-2025 Screening for malign ant neoplasm of breast Mammogram Screening [facility] Start: 01-11-2025 End: 01-11-2025 ambulatory Hematology/Oncology Comment on above: Survivorship LPRN INJ Start: 12-31-2024 End: 12-31-2024 Patient encounter procedure Neurology Comment on above: HEADACHE / MIGRAINES Follow-up dispositio n: Return in about 3 months (around 01/01/2025) for blood pressure check. Start: 12-17-2024 End: 12-17-2024 Patient encounter procedure 12/17/2024 8:00 AM EDT Office Visit Neurology [address] [id number] [place] [address] [address]/[facility]-[address] [place] [address] HEADACHE / MIGRAINES Neurology Comment on above: HEADACHE / MIGRAINES Start: 11-28-2024 Subsequent hospital visit by physician 11/28/2024 Hospital Encounter [facility] [address] [address] Isiah Messina MD [address] [place] [address] History of right breast cancer [Z85.3], History of mastectomy, bilateral [Z90.13] Surgery Center Comment on above: History of right quita ast cancer [Z85.3], History of mastectomy, bilateral [Z90.13] Start: 11-11-2024 End: 11-11-2024 Patient encounter procedure 11/11/2024 12:30 PM EDT Office Visit Neurology [address] [id number] Crissy Colon MD [address] [place], [place] [id number] Severe migraines getting worse Neurology Comment on above: Severe migraines get ting worse Start: 11-08-2024 End: 11-08-2024 ambulatory 11/08/2024 8:00 AM EDT OT/PT/Speech Visit [facility] Occupational Therapy [address] [place] [address] Kimberly Hidalgo, OTR/L [address] [place] [address] breast cancer fatigue [facility] Occupational Therapy Comment on above: breast cancer fatigu e Start: 11-04-2024 End: 11-04-2024 Patient encounter procedure 11/04/2024 10:00 AM EDT Office Visit Plastic Surgery [address] [address] Isiah Messina MD [address]2 [place] [address] follow up Plastic Surgery Comment on above: follow up Start: 11-01-2024 End: 11-01-2024 ambulatory 11/01/2024 8:00 AM EDT OT/PT/Speech Visit [facility] Occupational Therapy [address] [place] [address] Kimberly Hiadlgo OTR/L [address] [place] [address] breast cancer fatigue [facility] Occupational Therapy Comment on above: breast cancer fatigu e Start: 10-27-2024 End: 10-27-2024 Patient encounter procedure 10/27/2024 12:00 PM EDT Office Visit Neurology [address] [address] Crissy Colon MD [address] [place] [address] Severe migraines getting worse Neurology Comment on above: Severe migraines get ting worse Start: 10-26-2024 End: 10-26-2024 ambulatory 10/26/2024 8:00 AM EDT OT/PT/Speech Visit [facility] [address] [place] [address] Kimberly Hidalgo, OTR/L [address] [place] [address] breast cancer fatigue [facility] Comment on above: breast cancer fatigu e Start: 10-25-2024 Influenza vaccination C [facility] Start: 10-22-2024 End: 10-22-2024 Patient encounter procedure 10/22/2024 1:00 PM EDT Office Visit [facility] [address] [place] [address] Isabela Olivera APRN.MANAGER [employer] [address] [place] [address] Appointment Request From: Yolande Gomes [facility] Comment on above: Appointment Request From: Yolande Gomes Start: 10-21-2024 End: 10-21-2024 Patient encounter procedure 10/21/2024 10:15 AM EDT Office Visit Plastic Surgery [address] [place], [place] [phone] Isiah Messina MD [address] [place] [address] follow up Plastic Surgery Comment on above: follow up Start: 10-18-2024 End: 10-18-2024 ambulatory 10/18/2024 8:00 AM EDT OT/PT/Speech Visit [facility] Occupational Therapy [id number] [place] [address] Kimberly Hidalgo, OTR/L [address] [place] [address] breast cancer fatigue [facility] Occupational Therapy Comment on above: breast cancer fatigu e Start: 10-11-2024 End: 10-11-2024 Follow-up encounter Hematology/Oncology Comment on above: FOLLOW UP Start: 10-11-2024 End: 10-11-2024 ambulatory [facility] [place] [address] [place] Comment on above: LABS LPRN INJ Start: 10-04-2024 End: 10-04-2024 ambulatory [facility] Occupational Therapy Comment on above: breast cancer fatigu e C50.919 Scan Review Start: 09-27-2024 End: 09-27-2024 ambulatory 09/27/2024 3:00 PM EDT OT/PT/Speech Visit [facility] Occupational Therapy [address] [place] [address] Kimberly Hidalgo, OTR/L [address] [place] [address] [id number] breast cancer fatigue [facility] Occupational Therapy Comment on above: breast cancer fatigu e Start: 09-26-2024 Subsequent hospital visit by physician 09/26/2024 Hospital Encounter [facility] [address] [place] [address] Isiah Messina MD [address] [place] [address] History of breast cancer [Z85.3], History of breast reconstruction [Z98.890], History of bilateral mastectomy [Z90.13] Surgery Center Comment on above: History of breast ca ncer [Z85.3], History of breast reconstruction [Z98.890], History of bilateral mastectomy [Z90.13] Start: 09-24-2024 End: 09-24-2024 Patient encounter procedure 09/24/2024 11:30 AM EDT Office Visit Breast [place] [address] [place] [address] Pradeep Taylor MD [address] [place] [address] 168-cq post op Breast Center Comment on above: 168-cq post op Start: 09-20-2024 End: 09-20-2024 ambulatory 09/20/2024 10:00 AM EDT OT/PT/Speech Visit [facility] Occupational Therapy [address] [place] [address] Kimberly Hidalgo, OTR/L [address] [place] [address] breast cancer fatigue [facility] Occupational Therapy Comment on above: breast cancer fatigu e Start: 09-14-2024 End: 09-14-2024 Patient encounter procedure 09/14/2024 11:00 AM EDT Office Visit Neurology [address] [address] Crissy Colon MD [address] [place], [place] [phone] Severe migraines getting worse Neurology Comment on above: Severe migraines get ting worse Start: 09-14-2024 End: 09-14-2024 ambulatory 09/14/2024 10:00 AM EDT OT/PT/Speech Visit [facility] [address] [place] [address] Kimberly Hidalgo, OTR/L [address] [place] [address] breast cancer fatigue [facility] Comment on above: breast cancer fatigu e Start: 09-13-2024 End: 09-13-2024 ambulatory 09/13/2024 1:00 PM EDT OT/PT/Speech Visit [facility] Occupational Therapy [address] [place] [address] Kimberly Hidalgo, OTR/L [address] [place] [address] breast rehab [facility] Occupational Therapy Comment on above: breast rehab Start: 09-13-2024 End: 09-13-2024 Patient encounter procedure 09/13/2024 10:15 AM EDT Appointment Radiology [address] [place] [address] Encounter for other preprocedural examination [Z01.818] Radiology Comment on above: Encounter for other preprocedural examination [Z01.818] Start: 09-10-2024 End: 09-10-2024 Manual pelvic examination 09/10/2024 8:00 AM EDT Procedure OB/Gynecology [address] [facility] [place] [address] Remote, [employer] Operations Officer [employer] [address] [place] [address] pelvic us OB/Gynecology Comment on above: pelvic us Start: 09-06-2024 End: 09-06-2024 ambulatory 09/06/2024 9:00 AM EDT OT/PT/Speech Visit [facility] Occupational Therapy [address] [place] [address] Kimberly Hidalgo, OTR/L [address] [place] [address] breast rehab [facility] Occupational Therapy Comment on above: breast rehab Start: 08-31-2024 End: 08-25-2025 US Pelvis PELVIC US WHI Anc Imaging Routine Abnormal uterine bleeding (AUB) Expected: 08/31/2024 (Approximate), Expires: 08/25/2025 [facility] Work Phone: Comment on above: Expected: 08/31/2024 (Approximate), Expires: 08/25/2025 Start: 08-30-2024 End: 11-29-2024 Cortisol [Mass/volume] in Serum or Plasma CORTISOL, SERUM Lab Routine Drug-induced headache, not elsewhere classified, not intractable Expected: 08/30/2024 (Approximate), Expires: 11/29/2024 [facility] Work Phone: Comment on above: Expected: 08/30/2024 (Approximate), Expires: 11/29/2024 Start: 08-30-2024 End: 08-30-2024 ambulatory 08/30/2024 9:00 AM EDT Visit (SP) Office Gynecology Oncology [address] [place] [address] [place] [address] [place] [address] Malignant neoplasm of breast, stage 1, estrogen receptor positive, unspecified laterality (HCC) [C50.919, Z17.0] Gynecology Oncology Comment on above: Malignant neoplasm o f breast, stage 1, estrogen receptor positive, unspecified laterality (HCC) [C50.919, Z17.0] Start: 08-23-2024 End: 08-23-2024 Patient encounter procedure 08/23/2024 8:15 AM EDT Appointment RADIO MRI [facility] [address] [place] [address] MRI BRAIN WO/W IVCON RADIO MRI [facility] Comment on above: MRI BRAIN WO/W IVCON Start: 08-20-2024 End: 09-19-2025 MR Brain WO and W contrast IV MRI BRAIN WO/W IVCON Radiology STAT Headaches Nausea Dizziness Expected: 08/20/2024 (Approximate), Expires: 09/19/2025 [facility] Work Phone: Comment on above: Expected: 08/20/2024 (Approximate), Expires: 09/19/2025 Start: 08-20-2024 End: 08-20-2024 Follow-up encounter 08/20/2024 7:30 AM EDT Visit (SP) Office Hematology/Oncology [address] [place] [address] Shelly Sheridan APRN.MANAGER [employer] 9500 [place] [address] follow up Hematology/Oncology Comment on above: follow up Start: 08-19-2024 End: 08-19-2024 Patient encounter procedure 08/19/2024 2:45 PM EDT Office Visit Plastic Surgery [address] [address] Isiah Messina MD [address] [place] [address] 3 week follow up Plastic Surgery Comment on above: 3 week follow up Start: 08-16-2024 End: 08-16-2024 ambulatory 08/16/2024 10:00 AM EDT OT/PT/Speech Visit [facility] Occupational Therapy [address] [place] [address] Kimberly Hidalgo, OTR/L [address] [place] [address] Therapy [facility] Occupational Therapy Comment on above: Therapy Start: 08-13-2024 End: 08-13-2024 Patient encounter procedure 08/13/2024 9:30 AM EDT Office Visit Gynecology [address] [address] hysterectomy Gynecology Comment on above: hysterectomy Start: 08-12-2024 End: 08-12-2024 Patient encounter procedure 08/12/2024 10:00 AM EDT Office Visit Gynecology [address] [address] Ana Blanca MD [address] [place] [address] CONSULT TO GYNECOLOGY Gynecology Comment on above: CONSULT TO GYNECOLOG Y Start: 07-29-2024 End: 07-29-2024 Patient encounter procedure 07/29/2024 4:30 PM EDT Office Visit Plastic Surgery [address] [address] Olga Nieves PA-C [address] [address] post op follow up Plastic Surgery Comment on above: post op follow up Start: 07-21-2024 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 Weld Fitter greg Disease Visit 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 Chronic Disease Visit [facility] Start: 07-15-2024 End: 07-15-2024 Patient encounter procedure 07/15/2024 4:00 PM EDT Office Visit Plastic Surgery [address] [address] Olga Nieves PA-C [address] [address] POST OP Plastic Surgery Comment on above: POST OP Start: 07-14-2024 End: 07-14-2024 Patient encounter procedure 07/14/2024 9:00 AM EDT Office Visit Breast Center [address] [place] [address] Kary Rizzo, MARIXA.MANAGER HUM[employer]OURCES [address] [place] [address] post op Breast Center Comment on above: post op Start: 07-06-2024 End: 07-06-2024 Admission to same day surgery center 07/06/2024 7:30 AM EDT - 07/06/2024 9:15 AM EDT Surgery Admitting [address] [place] [address] Pradeep Taylor MD [address] [place] [address] excision of positive margin Admitting Comment on above: excision of positive margin Start: 07-06-2024 End: 07-06-2024 Mastectomy partial MASTECTOMY PARTIAL 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 ductal carcinoma of right breast (HCC) 07/06/2024 7:30 AM EDT [facility] Start: 07-06-2024 Subsequent hospital visit by physician 07/06/2024 7:30 AM EDT Hospital Encounter Admitting [address] [place] [address] Pradeep Taylor MD [address] [place] [address] 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], Invasive ductal carcinoma of right breast (HCC) [C50.911] Admitting Comment on above: 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], Invasive ductal carcinoma of right breast (HCC) [C50.911] Start: 07-05-2024 End: 07-05-2024 ambulatory 07/05/2024 3:00 PM EDT [facility] Hematology/Oncology [address] [place] [address] Jaimee Randall MD [address] [place] [address] VIRTUAL Hematology/Oncology Comment on above: VIRTUAL Start: 07-01-2024 End: 07-01-2024 Patient encounter procedure 07/01/2024 4:00 PM EDT Office Visit Plastic Surgery [address] [address] Olga Nieves PA-C [address] [address] 1 week follow up Plastic Surgery Comment on above: 1 week follow up Start: 06-30-2024 End: 06-30-2024 ambulatory 06/30/2024 10:00 AM EDT [facility] Endocrinology [address] [place], [place] [address] Glory Armstrong MD [address] [place], [place] [address] 3 month f/u-Thyroid levels Endocrinology Comment on above: 3 month f/u-Thyroid levels Start: 06-24-2024 End: 06-24-2024 Patient encounter procedure 06/24/2024 1:40 PM EDT Office Visit Plastic Surgery [address] [address] Olga Nieves PA-C [address] [phone] Post op Plastic Surgery Comment on above: Post op Start: 06-23-2024 End: 06-23-2024 Patient encounter procedure Breast Center Comment on above: post op New patient consult Start: 06-18-2024 End: 06-18-2024 Patient encounter procedure 06/18/2024 8:30 AM EDT Office Visit Psychology [address] [place] [address] Cristal Cohn, PhD [address] [place] [address] Personal history of breast cancer [Z85.3] Psychology Comment on above: Personal history of breast cancer [Z85.3] Start: 06-16-2024 End: 06-16-2024 Admission to same day surgery center Admitting Comment on above: MASTECTOMY SIMPLE BI LATERAL Start: 06-16-2024 End: 06-16-2024 Brst rcnstj immt/dlyd w/tiss health and fitness instructor sbsq xpnsj [facility] Start: 06-16-2024 End: [...] 10:50 AM EDT PAT Pre Anesthesia [address], [place] [address] 3, Pacc Main [address] [place] [address] perop Pre Anesthesia Comment on above: perop Start: 06-15-2024 End: 06-15-2024 Patient encounter procedure Cardiology Comment on above: ekg sx 423 NM INJ SENTINEL NODE BREAST RIGHT *RIGHT SIDE_NEXT DAY SURGERY -NM INJ SENTINEL NODE BREAST RIGHT Start: 06-11-2024 End: 06-11-2024 Patient encounter procedure 06/11/2024 10:20 AM EDT Office Visit [facility] [address] [place], [place] [phone] Isabela Olivera APRN.MANAGER [employer] [address] [place] [address] Appointment Request From: Yolande Gomes [facility] Comment on above: Appointment Request From: Yolande Gomes Start: 06-03-2024 End: 06-03-2024 Patient encounter procedure 06/03/2024 10:30 AM EDT Office Visit Plastic Surgery [address] [address] Isiah Messina MD [address] [place] [address] Consult Plastic Surgery Comment on above: Consult Start: 06-01-2024 End: 06-01-2024 Patient encounter procedure 06/01/2024 1:00 PM EDT [facility] Hematology/Oncology [address] [place] [address] Jaimee Randall MD [address] [place] [address] virtual consult [place] per Dr. Randall Hematology/Oncology Comment on above: virtual consult ok p er Dr. Randall Start: 05-31-2024 End: 08-30-2024 NVTA INVITAE HEREDITARY DIAGNOSTIC CANCER PANEL [facility] Work Phone: Comment on above: Expected: 05/31/2024 , Expires: 08/30/2024 Start: 05-31-2024 End: 05-31-2024 Patient encounter procedure 05/31/2024 8:30 AM EDT Office Visit [facility] [address] [place] [address] Pradeep Taylor MD [address] [place] [address] [facility] Comment on above: New breast cancer Start: 05-28-2024 End: 05-28-2024 Patient encounter procedure 05/28/2024 9:20 AM EDT Office Visit [facility] [address] [place] [address] Isabela Olivera APRN.MANAGER [employer] [address] [place], [place] [phone] Appointment Request From: Yolande Gomes [facility] Comment on above: Appointment Request From: Yolande Gomes Start: 05-27-2024 End: 05-27-2024 Patient encounter procedure 05/27/2024 12:00 PM EDT Appointment MRI A10 [address] [address] on 05/27 at 12 pm at main per email MRI A10 Comment on above: on 05/27 at 12 pm at ain per email Start: 05-20-2024 End: 05-20-2024 Patient encounter procedure 05/20/2024 8:00 AM EDT Appointment [facility] Radiology Mammography [address] [place] [address] RIGHT BREAST ULTRASOUND GUIDED CORE BIOPSY [facility] Radiology Mammography Comment on above: RIGHT BREAST ULTRASO UND GUIDED CORE BIOPSY Start: 05-17-2024 End: 05-17-2024 Patient encounter procedure 05/17/2024 10:20 AM EDT Office Visit [facility] [address] [place] [address] Isabela Olivera APRN.MANAGER [employer] [address] [place] [address] Appointment Request From: Yolande Gomes [facility] Comment on above: Appointment Request From: Yolande Gomes Start: 05-10-2024 End: 08-09-2024 Prolactin [Mass/volume] in Serum or Plasma [facility] Work Phone: Comment on above: Expected: 05/10/2024 , Expires: 08/09/2024 Start: 05-03-2024 End: 05-03-2024 ambulatory 05/03/2024 8:30 AM EDT Results [facility] [address] [place] [address] [facility] Start: 04-19-2024 End: 04-19-2024 [facility] Start: 03-31-2024 End: 03-31-2024 ambulatory 03/31/2024 9:40 AM EST [facility] Endocrinology [address] [place] [address] Glory Armstrong MD [address] [place] [address] Thyroid levels Endocrinology Comment on above: Thyroid levels Start: 02-06-2024 End: 02-06-2024 Patient encounter procedure 02/06/2024 4:20 PM EST Office Visit Endocrinology [address] [place] [address] Glory Armstrong MD [address] [place] [address] 3 month follow up Endocrinology Comment on above: 3 month follow up Start: 02-02-2024 End: 05-03-2024 Thyrotropin [Units/volume] in Serum or Plasma THYROID STIMULATING HORMONE Lab Routine Hypothyroidism, acquired Expected: 02/02/2024, Expires: 05/03/2024 [facility] Work Phone: Comment on above: Expected: 02/02/2024 , Expires: 05/03/2024 Start: 02-02-2024 End: 05-03-2024 Thyroxine (T4) free [Mass/volume] in Serum or Plasma T4 FREE/FREE THYROXINE Lab Routine Hypothyroidism, acquired Expected: 02/02/2024, Expires: 05/03/2024 [facility] Comment on above: Expected: 02/02/2024 , Expires: 05/03/2024 Start: 11-28-2023 End: 11-28-2023 ambulatory 11/28/2023 10:00 AM EDT [facility] Neurology [address] [id number] Crissy Colon MD [address] [place], [place] [id number] Migraines and scalp pain Neurology Comment on above: Migraines and scalp pain Start: 11-17-2023 End: 11-17-2023 Patient encounter procedure 11/17/2023 9:20 AM EDT Office Visit Endocrinology [address] [place] [id number] Glory Armstrong MD [address] [place] [address] 3 month follow up Endocrinology Comment on above: 3 month follow up Start: 11-14-2023 Lipid panel Lipid Screening [facility] Start: 11-14-2023 Screening for malign ant neoplasm of colon [facility] Start: 10-29-2023 End: 01-28-2024 Thyrotropin [Units/volume] in Serum or Plasma THYROID STIMULATING HORMONE Lab Routine Hypothyroidism, acquired Expected: 10/29/2023, Expires: 01/28/2024 [facility] Work Phone: Comment on above: Expected: 10/29/2023 , Expires: 01/28/2024 Start: 10-29-2023 End: 01-28-2024 Thyroxine (T4) free [Mass/volume] in Serum or Plasma T4 FREE/FREE THYROXINE Lab Routine Hypothyroidism, acquired Expected: 10/29/2023, Expires: 01/28/2024 [facility] Comment on above: Expected: 10/29/2023 , Expires: 01/28/2024 Start: 10-26-2023 Covid-19 Vaccine () Covid-19 Vaccine () [facility] Start: 10-26-2023 Covid-19 Vaccine () Covid-19 Vaccine () [facility] Start: 10-26-2023 Influenza vaccination C [facility] Start: 10-13-2023 End: 10-13-2023 Patient encounter procedure 10/13/2023 1:30 PM EDT Office Visit Neurology [address] [place] [address] [place] [address] [address] [place] [address] Occipital Nerve block Neurology Comment on above: Occipital Nerve bloc k Start: 09-16-2023 End: 09-16-2023 Patient encounter procedure 09/16/2023 4:00 PM EDT Office Visit Neurology [address] [place] [address] [place] [address] [address] [place] [address] Nerve block Neurology Comment on above: Nerve block Start: 08-29-2023 End: 08-29-2023 Follow-up encounter 08/29/2023 10:30 AM EDT [facility] Neurology [address] [address] Crissy Colon MD [address] [place] [address] 2 month follow up- rescheduled from 08/08/2023 Neurology Comment on above: 2 month follow up- r escheduled from 08/08/2023 Start: 08-18-2023 End: 08-18-2023 Patient encounter procedure 08/18/2023 8:40 AM EDT Office Visit Endocrinology [address] [place], [place] [address] Glory Armstrong MD [address] [place], [place] [id number] Thyroid Disease Endocrinology Comment on above: Thyroid Disease Start: 08-08-2023 End: 08-08-2023 ambulatory 08/08/2023 2:00 PM EDT [facility] Neurology [address] [place] [address] [place] [address] [address]/[facility] [place] [address] HEADACHE / MIGRAINES Neurology Comment on above: HEADACHE / MIGRAINES Start: 08-08-2023 End: 08-08-2023 Follow-up encounter 08/08/2023 11:00 AM EDT [facility] Neurology [address] [address] Crissy Colon MD [address] [place] [address] 2 month follow up Neurology Comment on above: 2 month follow up Start: 07-22-2023 End: 10-21-2023 25-hydroxyvitamin D3 [Mass/volume] in Serum or Plasma VITAMIN D 25 HYDROXY Lab Routine Hypothyroidism, acquired Chronic fatigue Expected: 07/22/2023, Expires: 10/21/2023 [facility] Comment on above: Expected: 07/22/2023 , Expires: 10/21/2023 Start: 07-22-2023 End: 07-21-2024 ALETHA BY IFA SCREEN ALETHA BY IFA SCREEN Lab Routine Myalgias Paresthesia Expected: 07/22/2023, Expires: 07/21/2024 [facility] Comment on above: Expected: 07/22/2023 , Expires: 07/21/2024 Start: 07-22-2023 End: 10-21-2023 C reactive protein [Mass/volume] in Serum or Plasma C-REACTIVE PROTEIN Lab Routine Myalgias Expected: 07/22/2023, Expires: 10/21/2023 [facility] Comment on above: Expected: 07/22/2023 , Expires: 10/21/2023 Start: 07-22-2023 End: 10-21-2023 CBC W Auto Differential panel - Blood COMPLETE BLOOD COUNT AND DIFFERENTIAL Lab Routine Myalgias Paresthesia Expected: 07/22/2023, Expires: 10/21/2023 [facility] Work Phone: Comment on above: Expected: 07/22/2023 , Expires: 10/21/2023 Start: 07-22-2023 End: 10-21-2023 Cobalamin (Vitamin B12) [Mass/volume] in Serum or Plasma VITAMIN B12 Lab Routine Paresthesia Expected: 07/22/2023, Expires: 10/21/2023 [facility] Comment on above: Expected: 07/22/2023 , Expires: 10/21/2023 Start: 07-22-2023 End: 10-21-2023 Comprehensive metabolic 2000 panel - Serum or Plasma COMPREHENSIVE METABOLIC PANEL Lab Routine Myalgias Hypothyroidism, acquired Expected: 07/22/2023, Expires: 10/21/2023 [facility] Comment on above: Expected: 07/22/2023 , Expires: 10/21/2023 Start: 05-15-2023 End: 08-14-2023 Thyrotropin [Units/volume] in Serum or Plasma TSH BLD Lab Routine Expected: 05/15/2023, Expires: 08/14/2023 [facility] Work Phone: Comment on above: Expected: 05/15/2023 , Expires: 08/14/2023 Start: 02-24-2023 Behavioral Health Screening Behavioral Health Screening [facility] Start: 02-24-2023 Depression Assessment Depression Ass essment [facility] Start: 10-25-2022 Covid-19 Vaccine ( season) Covid-19 Vaccine () [facility] Start: 10-25-2022 Influenza vaccination Influenza Vacc ine (#1) [facility] Start: 08-23-2022 Liquid based cervica l cytology screening [facility] Start: 08-02-2020 Hepatitis B Vaccine (2 of 3 - 19+ 3-dose series) Hepatitis B Vaccine (2 of 3 - 19+ 3-dose series) [facility] Start: 2018 Screening for malign ant neoplasm of breast Mammogram Screening [facility] Start: 11-25-2016 End: 11-25-2016 Appointment Appointment [facility] Work Phone: Start: 09-10-2016 End: 09-10-2016 Appointment Appointment [facility] Work Phone: Start: 09-10-2016 End: 09-10-2016 Complete sleep workup (PSG,CPAP as indicated) & Follow up Complete sleep workup (PSG,CPAP as indicated) & Follow up [facility] Work Phone: Start: 09-10-2016 End: 09-10-2016 CUATE CUELLO [facility] Work Phone: Start: 09-10-2016 End: 09-10-2016 Follow Up Appt 2 months Follow Up Appt 2 months [facility] Work Phone: Start: 09-10-2016 End: 09-10-2016 Remote 30 day ecg rev/report 30 Day Holter Monitor [facility] Work Phone: Start: 07-03-2015 End: 07-17-2015 *CMP Complete Metabolic Panel *CMP Complete Metabolic Panel [facility] Work Phone: Start: 07-03-2015 End: 07-17-2015 HbA1c *HgA1C [facility] Work Phone: Start: 07-03-2015 End: 07-17-2015 Lipid panel [AGGREGATE] *Lipid Profile [facility] Work Phone: Start: 04-28-2012 Screening for malign ant neoplasm of cervix Pap Testing [facility] Start: 04-28-2010 Screening for malign ant neoplasm of cervix Cervical Cancer Screening [facility] Start: 2008 Screening for malign ant neoplasm of cervix HPV Testing [facility] Start: 2005 HPV Vaccine (1 - 3-d ose SCDM series) HPV Vaccine (1 - 3-dose SCDM series) [facility] Start: 1997 Pneumococcal vaccination Pneumococcal Vaccine (1 of 2 - PCV) [facility] Start: 1997 Shingrix Vaccine (1 of 2) Shingrix Vaccine (1 of 2) [facility] Start: 1996 Anxiety Screening Anxiety Screening [facility] Start: 1996 Depression Screening Depression Scre ening [facility] Start: 1996 Hepatitis C screening Hepatitis C Sc reening [facility] Start: 1996 HIV screening HIV Screening [facility] Breast reconstructio n free flap RECONSTRUCTION BREAST FREE FLAP History of breast cancer History of breast reconstruction History of bilateral mastectomy PLASTICS A60 Breast reconstructio n free flap RECONSTRUCTION BREAST FREE FLAP History of breast cancer History of breast reconstruction History of bilateral mastectomy [facility] Brst rcnstj immt/dly d w/tiss health and fitness instructor sbsq xpnsj BREAST RECONSTRUC W TISS EXPANDR Procedures Routine Ductal carcinoma in situ (DCIS) of right breast Ordered: 06/01/2024 [facility] Comment on above: Ordered: 06/01/2024 Bx/exc lymph node op en deep axillary node BX/REMV,LYMPH NODE,DEEP AXILL Procedures Routine Ductal carcinoma in situ (DCIS) of right breast Ordered: 06/01/2024 [facility] Comment on above: Ordered: 06/01/2024 End: 12-27-2024 CT Head WO contrast CT BRAIN WO IVCON Radiology Routine 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 and with status migrainosus 1 Occurrences starting 11/28/2023 until 12/27/2024 [facility] Work Phone: Comment on above: 1 Occurrences starti ng 11/28/2023 until 12/27/2024 End: 09-18-2025 CTA Pelvis vessels W contrast IV CTA PELVIS W IVCON Radiology Routine Encounter for other preprocedural examination 1 Occurrences starting 08/19/2024 until 09/18/2025 [facility] Work Phone: Comment on above: 1 Occurrences starti ng 08/19/2024 until 09/18/2025 Dlyd insj brst prost h flwg mastopexy mast/rcnstj INSERTION OR REPLACEMENT OF BREAST IMPLANT ON SEPARATE DAY FROM MASTECTOMY UNILATERAL History of right breast cancer History of mastectomy, bilateral PLASTICS A60 End: 06-01-2025 ECG COMPLETE ECG COMPLETE ECG Routine Ductal carcinoma in situ (DCIS) of right breast Pre-op testing 1 Occurrences starting 06/01/2024 until 06/01/2025 [facility] Work Phone: Comment on above: 1 Occurrences starti ng 06/01/2024 until 06/01/2025 Grafting of autologo us fat by lipo 50 cc or less GRAFTING OF AUTOLOGOUS FAT BY LIPO 50 CC OR LESS TRUNK, BREAST, SCALP, ARMS AND/OR LEGS History of right breast cancer History of mastectomy, bilateral PLASTICS A60 HIGH RISK HUMAN PAPILLOMA VIRUS (HPV), PCR FOR DETECTION AND GENOTYPING HIGH RISK HUMAN PAPILLOMA VIRUS (HPV), PCR FOR DETECTION AND GENOTYPING Lab Routine Encounter for screening for malignant neoplasm of cervix 08/13/2024 9:57 AM EDT [facility] Inj radioactive trac er for id of sentinel node IDENTIFY SENTINEL NODE Procedures Routine Ductal carcinoma in situ (DCIS) of right breast Ordered: 06/01/2024 [facility] Comment on above: Ordered: 06/01/2024 Mastectomy simple complete MASTECTOMY, SIMPLE, COMPLETE Procedures Routine Ductal carcinoma in situ (DCIS) of right breast Ordered: 06/01/2024 [facility] Comment on above: Ordered: 06/01/2024 MG Breast - bilatera l [facility] End: 06-04-2025 MG Breast - right Diagnostic for implant МАРИЯ DIAGNOSTIC RIGHT Radiology Routine Abnormal finding on radiological examination of breast 1 Occurrences starting 05/05/2024 until 06/04/2025 [facility] Work Phone: Comment on above: 1 Occurrences starti ng 05/05/2024 until 06/04/2025 Nerve repair w/autogenous vein graft ea nerve NERVE REPAIR; WITH AUTOGENOUS VEIN GRAFT, EACH NERVE History of breast cancer History of breast reconstruction History of bilateral mastectomy [facility] A60 Nerve repair w/autogenous vein graft ea nerve NERVE REPAIR; WITH AUTOGENOUS VEIN GRAFT, EACH NERVE History of breast cancer History of breast reconstruction History of bilateral mastectomy [facility] Nerve repair w/condu it each nerve NERVE REPAIR; WITH SYNTHETIC CONDUIT OR VEIN ALLOGRAFT, EACH NERVE History of breast cancer History of breast reconstruction History of bilateral mastectomy PLASTIC A60 Nerve repair w/nerve allograft first strand NERVE REPAIR W/NERVE ALLOGRAFT,EACH NERVE,1ST STRAND (CABLE) History of breast cancer History of breast reconstruction History of bilateral mastectomy PLASTICS A60 End: 07-01-2025 NM Lymph node Views NM INJ SENTINEL NODE BREAST RIGHT Radiology Routine Ductal carcinoma in situ (DCIS) of right breast Pre-op testing 1 Occurrences starting 06/01/2024 until 07/01/2025 [facility] Comment on above: 1 Occurrences starti ng 06/01/2024 until 07/01/2025 PAP TEST PAP TEST Lab Mario vazquez Encounter for screening for malignant neoplasm of cervix 08/13/2024 9:57 AM EDT [facility] Work Phone: Path report.final Dx Spec [facility] Patient Education [facility] Work Phone: Patient referral [facility] Work Phone: Removal tiss expande r w/o insertion prosthesis REMOVAL OF TISSUE DIRECTOR TELEVISION(S) W/O INSERTION OF IMPLANT History of breast cancer History of breast reconstruction History of bilateral mastectomy [facility] A6 Removal tiss expande r w/o insertion prosthesis REMOVAL DIRECTOR TELEVISION TISSUE BREAST History of right breast cancer History of mastectomy, bilateral PLASTICS A60 Tissue Pathology bio psy report [facility] Work Phone: Comment on above: Release Upon Orderin g for 1 Occurrences starting 05/20/2024, 1 completed Tissue Pathology bio psy report [facility] Work Phone: Comment on above: Release Upon Orderin g for 1 Occurrences starting 05/27/2024, 1 completed End: 06-04-2025 US Breast - right limited US BREAST LTD RIGHT Radiology Routine Abnormal finding on radiological examination of breast 1 Occurrences starting 05/05/2024 until 06/04/2025 [facility] Comment on above: 1 Occurrences starti ng 05/05/2024 until 06/04/2025 End: 08-20-2024 XR Cervical spine 2 or 3 views and (Views W flexion and W extension) XR CERVICAL 2V FLEX/EXT Radiology Routine Cervicalgia 1 Occurrences starting 07/22/2023 until 08/20/2024 [facility] Comment on above: 1 Occurrences starti ng 07/22/2023 until 08/20/2024 XR Cervical spine 2 or 3 views and (Views W flexion and W extension) XR CERVICAL 2V FLEX/EXT Radiology Routine Cervicalgia 07/24/2023 11:40 AM EDT [facility] Work Phone: [facility] Immunizations Immunization Date Immunization Notes Care Provider Meredith ribera 02-04-2022 influenza virus vaccine, unspecified formulation Crissy Colon MD Work Phone: [facility] 01-09-2021 influenza, injectabl e, quadrivalent, preservative free Una PA-C Work Phone: [facility] 01-09-2021 influenza, seasonal, injectable PA-C Una PA Work Phone: [facility] 12-29-2020 Covid (Pfizer) PA-C Una PA Work Phone: [facility] 07-05-2020 hepatitis B vaccine, adult dosage PA-C Una PA Work Phone: [facility] 06-21-2020 Covid (Pfizer) PA-C Una PA Work Phone: [facility] 05-31-2020 Covid (Pfizer) PA-C Una PA Work Phone: [facility] 01-26-2020 hepatitis B vaccine, adult dosage PA-C Una PA Work Phone: [facility] 12-06-2019 hepatitis B vaccine, adult dosage PA-C Una PA Work Phone: [facility] 12-02-2019 influenza, injectabl e, quadrivalent, preservative free Una PA-C Work Phone: [facility] 12-02-2019 influenza, seasonal, [facility]able [facility] Work Phone: [facility] Payers Date Payer Category Payer Private Health Insurance [id number] 2024 Private Health Insurance [id number] 2023 Self-pay [id number] 2023 Unknown MMO MMO SUPERMED PPO [id number] 2023-[facility] [phone] [address] [place] [address] PPO [id number] 2023 Unknown [id number] 2016 Unknown ANTHEM EXCHANGE PLAN [id number] 2016 Unknown ANTHEM [id number] 1978 Unknown [id number] 1978 Unknown [id number] 1978 Unknown [id number] 1978 Unknown [id number] Unknown COMMERCIAL OTHER [id number] Unknown [id number] Unknown [id number] 462 Unknown [id number] 462 Unknown [id number] 462 Unknown [id number] 462 Unknown [id number] 462 Unknown [id number] 462 Unknown [id number] Unknown [id number] 462 Social History Date Type Detail Facility Start: 08-23-2022 Tobacco smoking stat us DCIS Unknown if ever smoked [facility] Start: 1980 Sex Assigned At Female W [facility] Start: 05-15-2023 End: 06-15-2024 Tobacco smoking status NHIS Never smoked tobacco [facility] Start: 05-15-2023 End: 06-15-2024 Tobacco use and exposure Former smokeless tobacco user [facility] End: 02-24-2009 History of tobacco use Chews Tobacco [facility] Start: 05-15-2023 End: 10-11-2024 Alcohol intake Current drinker of alcohol (finding) [facility] Start: 05-15-2023 End: 07-30-2023 History of Social function [facility] Start: 05-15-2023 End: 07-30-2023 Tobacco use panel [facility] Start: 01-26-2012 National Score (1-100), lower number is lower risk Not on file [facility] Start: 05-15-2023 Tobacco Comment For 3 years [facility] Start: 1980 Sex Assigned At Not on file [facility] Start: 06-01-2024 Tobacco Comment For 3 years. Q uit in 2009 [facility] Start: 06-01-2024 Alcohol Comment monthly/social 2-3 drink mixed drink [facility] Start: 08-24-2024 Gender identity Identifies as female gender (finding) [facility] Medical Equipment Procedure Code Equipment Code Equipment Origin al Text Equipment Identifier Dates Ultrasound Breas t Clip [id number] Start: 05-20-2024 Comment on above: Description: Q clip Stoplight Clip [id number] Start: 05-27-2024 Buckle Clip [id number] Start: 05-27-[address] 500cc Mv - [id number] Start: 06-16-[address] 500cc Mv - [id number] Start: 06-16-2024 Ywd-Cj-W-Kind Implant - [id number] Start: 06-16-2024 Uey-Le-O-Kind Implant - [id number] Start: 06-16-2024 Functional Status Date Assessment Result Facility 01-31-2014 Are you deaf, or do you have serious difficulty hearing No 01/31/2014 1:04 PM Alina Matthews No [facility] 01-31-2014 Are you blind, or do you have serious difficulty seeing, even when wearing glasses No 01/31/2014 1:04 PM Alina Matthews No [facility] 01-31-2014 Do you have serious difficulty walking or climbing stairs No 01/31/2014 1:04 PM Alina Matthews No [facility] 01-31-2014 Do you have difficul ty dressing or bathing No 01/31/2014 1:04 PM Alina Matthews No [facility] 01-31-2014 Because of a physica l, mental, or emotional condition, do you have difficulty doing errands alone such as visiting a physician's office or shopping No 01/31/2014 1:04 PM Alina Matthews [facility] Mental Status Date Assessment Result Facility 08-05-2024 Cognitive function Level Of Cons ciousness Awake;Alert;Appropriate;Fol lows Commands [facility] Work Phone: 01-31-2014 Because of a physica l, mental, or emotional condition, do you have serious difficulty concentrating, remembering, or making decisions No 01/31/2014 1:04 PM Alina Matthews Maria L [facility] Clinical Notes 05-15-2023 to 10-21-2024 Isiah Messina MD - 10/21/2024 10:15 AM Kimberly Sandoval, OTR/L - 10/18/2024 9:17 AM Kimberly Sandoval OTR/Nahid - 10/18/2024 8:28 AM Rio Heredia MD - 10/11/2024 2:30 PM EDT Note Date & Type Note Facility 10-21-2024 History of Present illness Narrative Plastic Surgery Note CC: Follow up HPI: Yolande is a 43 year old female s/p 06/16/2024 RIGHT breast skin-sparing mastectomy, ipsilateral axillary sentinel lymph node biopsy; prophylactic LEFT breast total/simple mastectomy Bilateral breast reconstruction with tissue health and fitness instructor placement (Abbvie 133 mV 500 mL) in prepectoral positions with use of matrix support 20x25 cm (500 cm2) on each side of the breast bilaterally. SYDNIE: 08/19/24- pelvic CTA completed., submitted to insurance for GRETTA Time Post Op: 4 months Bilateral TE Volume: 450 cc NS /500 cc Bilateral TE She had right breast excision of margin by Dr. Taylor on 07/06/24 (drains removed during this surgery) - Surgical Path: right breast IDC, grade-1, 3mm max dimension + DCIS(grade-2), 1(ILC)/2 SLN's, all margins negative for invasive carcinoma but DCIS + at superior margin. Final staging [id number](i+) No plans for chemo or radiation. Follows with Dr. Randall (hem/onc) CTA ABD/PEL W IVCON - 09/13/24 IMPRESSION: NO VENTRAL ABDOMINAL WALL MASS, HERNIA OR FLUID COLLECTION. 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 ROS: No fevers, chills, new redness, pain, wound drainage or incisional breakdown Objective: LMP 07/19/2024 (Approximate) PAST MEDICAL HISTORY Diagnosis Date Acne On spironolactone Anxiety Breast cancer (HCC) invasive ductal carcinoma R breast Dysmenorrhea Dyspareunia Hypothyroidism also known nodule Migraines Papanicolaou smear of cervix with low grade squamous intraepithelial lesion (LGSIL) 02/24/2006 PMH - PAST MEDICAL HISTORY OF bipolar, borderline personality disorder PAST SURGICAL HISTORY Procedure Laterality Date PAST SURGICAL HISTORY OF tonsils PAST SURGICAL HISTORY OF D&C 2017 and 2020 PAST SURGICAL HISTORY OF 06/16/2024 double masectomy Current Outpatient Medications on File Prior to Visit Medication Sig anastrozole (ARIMIDEX) 1 mg tablet Take 1 tablet by mouth once daily. Patient should start on July 14, 2024. FLUoxetine (PROZAC) 40 mg capsule Take 50 mg by mouth once daily. levothyroxine (SYNTHROID) 100 mcg tablet Take 1 tablet on 5 days of the week, skip on 2 days of the week (may be Friday and Friday) SEMAGLUTIDE, WEIGHT LOSS, SUBCUTANEOUS Inject 70 Units subcutaneously one time a week. spironolactone (ALDACTONE) 50 mg tablet cefADROxil (DURICEF) 500 mg capsule Take 500 mg by mouth two times a day. 7 days. As of today, she has 2 more days to go (Patient not taking: Reported on 07/20/2024) cholecalciferol (VITAMIN D3) 5,000 unit tab Take by mouth. eletriptan (RELPAX) 40 mg tablet TAKE 1 TABLET NEEDED FOR MIGRAINE HEADACHE (SEE ADMINISTRATION INSTRUCTIONS) AT THE ONSET OF MIGRAINE HEADACHE (1 IN 24 HOURS) (Patient taking differently: as needed.) No current facility-administered medications on file prior to visit. ALLERGIES Allergen Reactions Penicillins Anaphylaxis PE: A&Ox3, NAD LMP 07/19/2024 (Approximate) Abdominal Exam: soft, non-tender, non obese, BS+, non-distended, no abdominal scars. Adequate adipose tissue for breast reconstruction Breasts: Bilateral breasts soft Bilateral breast incisions healing well Bilateral breast asymmetry s/p bilateral mastectomies and TE placement Bilateral breast TE intact, filled with NS No symptoms or signs of infection No evidence of hematoma/seroma pt feels w adequate expansion but would desire to have pepe implant if feasible A/P: (Z85.3) History of right breast cancer (primary encounter diagnosis) (Z90.13) History of mastectomy, bilateral (Z98.890) S/P breast reconstruction (Z71.89) Encounter to discuss breast reconstruction S/p bilateral breast reconstruction with placement of TE and matrix support Expected post operative course Doing well Approximate tissue health and fitness instructor size or implant size: SSF 500-650cc The patient is seen and examined by Dr. Messina and the following reflects his/her service. Scribed by Ana Connor RN -Discussed that her insurance did not cover the nerve graft and patient would have to pay out of pocket for nerve graft repair -Discussed possibility of removal of tissue expanders with bilateral implant placement -Will submit today for removal of tissue expanders and placement of bilateral implants with fat grafting -Educated we will wait 3-6 months until we do nipple reconstruction -C I agree with the Chief Complaint, ROS, and Past Histories independently gathered by the clinical application support engineer and the remaining scribed note accurately describes my personal service to the patient. patient's condition reviewed and examined plan of care and options of management, complexity, risk benefit limitation potential complication, success /failure of management, expected result and recovery discussed CTA reviewed pt is recently dx w brain lesion pt desires for less invasive surgery and easier route for recovery therefore we discussed re exchange of TE to implant Medical Decision Making: Problems: Moderate: 1+ chronic illnesses with change Data: Unique test result(s) reviewed: 2 Independent interpretation of test from other physician/QHCP Risk: High: Decision on elective major surgery w/ risk factors Medical Decision Making Level: 4 - Moderate I spent a total of 30 minutes on the date of service which included preparing to see the patient, [id number] patient care, completing clinical documentation, obtaining & reviewing separately an obtained history, performing a medically appropriate examination, counseling & educating the patient/family/caregiver, ordering medications, tests, or procedures, communicating with other healthcare providers, independently interpreting the results, communicating results to the patient care team, and continued patient care coordination. This is included in the documentation noted above. Isiah Messina MD documented in this encounter [facility] 10-21-2024 Note [facility] 10-18-2024 History of Present illness Narrative Program_ID:[id number] Access Code: [email or web address] URL: [email or web address] Date: 10-18-2024 Prepared By: Kimberly Hidalgo Program Notes Exercises - Seated Scapular Retraction - 3-4 x daily - 7 x weekly - 1 sets - 10 reps - Supine Diaphragmatic Breathing - 2-3 x daily - 7 x weekly - 1 sets - 5 reps - Supine Shoulder Flexion AAROM with Hands Clasped - 2-3 x daily - 7 x weekly - 1 sets - 10 reps - Supine shoulder AAROM with towel - 2-3 x daily - 7 x weekly - 1 sets - 5-10 reps - Supine Shoulder External Rotation Stretch with Hands Behind Head - 2-3 x daily - 7 x weekly - 1 sets - 10 reps - T stretch - 2-3 x daily - 7 x weekly - 1 sets - 10 reps - Supine Shoulder External Rotation in Abduction - 2 x daily - 7 x weekly - 1 sets - 10 reps - Shoulder Flexion Wall Slide with Towel - 2-3 x daily - 7 x weekly - 1 sets - 10 reps - Seated Elbow Flexion and Extension AROM - 3 x daily - 7 x weekly - 1 sets - 10 reps - Wrist flexion and extension with neutral forearm and hand relaxed - 3 x daily - 7 x weekly - 1 sets - 10 reps - Composite fist with extension - 4-6 x daily - 7 x weekly - 1 sets - 10 reps Patient Education - What Is Lymphedema? - Lifestyle Choices for Lymphedema - Early Detection for Lymphedema Episode Visit Count: 4 Therapist That Will Accept/Oversee The Plan Of Care: CONSTANTINO Burton Start of Care Date: 08/16/24 Onset Date: 06/16/24 Patient Identified by Name and Date of : Yes REHABILITATION AND SPORTS THERAPY OCCUPATIONAL THERAPY TREATMENT NOTE ASSESSMENT: Yolande Leonard Dvaila tolerated the session with no issues. She demonstrated improvement with bilateral shoulder range of motion. The patient will continue to benefit from ongoing skilled occupational therapy to progress toward set goals and for reassessment by supervising therapist. PLAN FOR NEXT VISIT: Complete progress update. Breast Rehab BUQs - STM and MFR. Progress stretches. SUBJECTIVE: I am doing pretty good. 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 Patient states she started drinking tart zuniga juice which was recommended by her oncologist to help with pain. Putting my shirts on is getting much easier. 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 Reports using 3# weights at home with 3 different exercises (bicep curls, shoulder abduction and shoulder flexion) and notices it after about 5 repetitions. Pain: Pain Pain Level: (2.5/10 right and 2/10 left) Pain Location: Breast - Left, Breast - Right, Axilla - Right, Shoulder - Right, Shoulder - Left, Upper Arm - Right, Upper Arm - Left, Chest - Right, Chest - Left Description: Tightness (itchy) Frequency: With movement Post Treatment Pain Post Treatment Pain Level: Better Post Treatment Pain Location: Breast - Left, Breast - Right, Axilla - Right, Shoulder - Right, Shoulder - Left, Upper Arm - Right, Upper Arm - Left, Chest - Right, Chest - Left Post Treatment Symptoms: feels looser OBJECTIVE MEASURES WITH LEVEL OF FUNCTION: UE AROM R Shoulder Flex: 160 Degrees R Shoulder ABduction: 155 Degrees L Shoulder Flex: 165 Degrees L Shoulder ABduction: 163 Degrees TREATMENT: Therapeutic Exercise: 1: Shoulder ROM measurements taken and educated patient on the results. 2: *Discussed patient's report with working out with weights at home and advised patient on importance of gradually increase in. Recommended starting with 1# and working up to the 3# as patient reports feeling it after about 5 reps with the 3# weight. Instructed patient on bicep curls and shoulder press ups. Had patient complete a few while in the clinic to ensure understanding and proper technique as well as fee the difference with the light weight. Patient states she doesn't have any 1#. Advised patient to use unopened water bottles. 3: *Supine flexion stretch with hands clasped together with use of stopper pillows to allow arms to rest in a stretched posture x 3 reps. 4: *Supine ER stretch with hands clasped behind the head and stopper pillows under her elbows to allow the arms to rest in a stretched posture x 3 reps. 5: *Supine flexion stretch with towel with use of stopper pillows to allow the arms to rest in a stretched posture x 4 reps. 6: *Reviewed supine abduction (t) stretch with use of stopper pillows to allow the arms to rest in a stretched posture. Patient completed 3 reps. Progressed patient to the Y stretch with use of stopper pillows. Had patient complete while in the clinic to ensure understanding and proper technique. Instructed patient to add this exercise at home as the t stretch eases up. 7: *Instructed patient on supine ER stretch in abduction with use of stopper pillows to allow the arms to rest in a stretched posture via verbal instruction and demonstration. Had patient complete while in the clinic to ensure understanding and proper technique. Instructed patient to add exercise to her home program. 8: *Instructed patient on wall slides for shoulder flexion via verbal instruction and demonstration. Had patient complete while in the clinic to ensure understanding and proper technique. Instructed patient to add exercise to her home program. Skilled Intervention: Patient was educated in proper exercise technique and purpose for exercises. Reviewed and educated patient on additions/changes for home exercise program as above (*). Skilled judgment was used in selection of appropriate interventions. Provided written instruction for home exercise program to facilitate proper performance and compliance. Correct performance of therapeutic exercises was facilitated with verbal, visual, and tactile cuing. Educated patient on rationale for performing exercises in regards to increase lymphatic fluid dynamics and ROM and function. Patient education as noted. Manual Therapy: 1: SENSITIVE EXAMINATION CONSENT: The sensitive examination was discussed with the Patient or Patient's Authorized Restaurant Kitchen And Service Manager. As applicable, any other physician, advance practice provider, medical student, or other health professional student that will be observing or involved in the sensitive examination for educational or training purposes was discussed with the Patient or Authorized Restaurant Kitchen And Service Manager. The Patient or Authorized Restaurant Kitchen And Service Manager has agreed to proceed with the sensitive examination. 2: Gentle STM to BUQ with focus on pecs, axilla and upper arm. 3: Gentle MFR to BUQ with focus to axilla and pecs. Skilled Intervention: Manual skills to improve joint mobility, ROM, and decrease pain. Utilized anatomy knowledge of the therapist, and assessment of patient's response to intervention. Self-Halfway Management: 2: Discussed pain symptoms and concerns. 3: Reviewed signs and symptoms of lymphedema. 5: Discussed prophylactic sleeve. States she has not got one yet. Skilled Intervention: Patient education home exercise programAccess Code: [email or web address] URL: [email or web address] Date: 10/18/2024 Prepared by: Kimberly Hidalgo Exercises - Seated Scapular Retraction - 3-4 x daily - 7 x weekly - 1 sets - 10 reps - 5-10 hold - Supine Diaphragmatic Breathing - 2-3 x daily - 7 x weekly - 1 sets - 5 reps - Supine Shoulder Flexion AAROM with Hands Clasped - 2-3 x daily - 7 x weekly - 1 sets - 10 reps - 10 hold - Supine shoulder AAROM with towel - 2-3 x daily - 7 x weekly - 1 sets - 5-10 reps - 10 hold - Supine Shoulder External Rotation Stretch with Hands Behind Head - 2-3 x daily - 7 x weekly - 1 sets - 10 reps - 10 hold - T stretch - 2-3 x daily - 7 x weekly - 1 sets - 10 reps - 10 hold - Supine Shoulder External Rotation in Abduction - 2 x daily - 7 x weekly - 1 sets - 10 reps - 5-10 hold - Shoulder Flexion Wall Slide with Towel - 2-3 x daily - 7 x weekly - 1 sets - 10 reps - 5 hold - Seated Elbow Flexion and Extension AROM - 3 x daily - 7 x weekly - 1 sets - 10 reps - 3-5 hold - Wrist flexion and extension with neutral forearm and hand relaxed - 3 x daily - 7 x weekly - 1 sets - 10 reps - 3-5 hold - Composite fist with extension - 4-6 x daily - 7 x weekly - 1 sets - 10 reps - 3-5 hold Patient Education - What Is Lymphedema? - Lifestyle Choices for Lymphedema - Early Detection for Lymphedema Billing Therapeutic Exercise Treatment Minutes: 34 Manual Therapy Treatment Minutes: 18 Self-Care/Home Management Treatment Minutes: 2 Skilled Treatment Time Minutes (timed and untimed codes): 54 Total Session Time (minutes): 58 Session Start Time : 827 Session Stop Time : 925 CONSTANTINO Burton documented in this encounter [facility] 10-18-2024 Note [facility] 10-11-2024 Note Addended by: JAIMEE RANDALL on: 10/11/2024 04:01 PM Modules accepted: Orders [facility] 10-11-2024 Miscellaneous Notes Addended by: JAIMEE RANDALL on: 10/11/2024 04:01 PM Modules accepted: Orders documented in this encounter [facility] 10-11-2024 History of Present illness Narrative Images from the original note were not included. DATE OF SERVICE: 10/11/2024 PROBLEM: Yolande Davila presents today for follow up. DIAGNOSIS: abnormal uterine bleeding, malignant neoplasm of breast, stage 1, estrogen receptor positive unspecified laterality, ductal carcinoma in situ of right breast. HPI: Ms. Gomes is a 43 year old female who has a past medical history of Acne, Anxiety, Dysmenorrhea, Dyspareunia, Hypothyroidism, Migraines, Papanicolaou smear of cervix with low grade squamous intraepithelial lesion (LGSIL) (02/24/2006), and PMH - PAST MEDICAL HISTORY OF. Breast Cancer History - Underwent a double mastectomy in May. - Pathology: Estrogen and progesterone receptor-positive, HER2-negative. - Started on Lupron injections in June. - Began taking anastrozole (Arimidex) two weeks post-Lupron injection. Not on tamoxifen given interaction with Prozac. - Oncologist anticipates 5-10 years of treatment with Lupron and anastrozole - Inquired about a complete hysterectomy and oophorectomy with her oncologist, who is supportive if a surgeon agrees. - Genetic testing: BRCA-negative, with an uncertain variant that was positive. -Interested in what surgeries can help decrease side effects of BC medications Arimidex discontinued due to headaches, no improvement since stopping. Genetics: 2024 Your Multi-Cancer panel through [facility] was negative for a pathogenic variant. A variant of uncertain significance (VUS) was detected: CTNNA1 c.2558A>G ([id number]). IMAGING: No recent relevant imaging LABS: Tumor Markers DHEA-S Latest Ref Rng & Units 60.9 - 337.0 ug/dL 10/22/2019 307.6 02/04/2014 348.7 PATHOLOGY: FINAL DIAGNOSIS Date Value Ref Range Status 07/06/2024 Final Right breast, skin margin, excision - Skin and subcutaneous tissue with post-surgical site changes, (please see comment). -The final, inked margin is negative for carcinoma. PJM/pjm/07/08/24 PAST MEDICAL HISTORY Diagnosis Date Acne On spironolactone Anxiety Breast cancer (HCC) invasive ductal carcinoma R breast Dysmenorrhea Dyspareunia Hypothyroidism also known nodule Migraines Papanicolaou smear of cervix with low grade squamous intraepithelial lesion (LGSIL) 02/24/2006 PMH - PAST MEDICAL HISTORY OF bipolar, borderline personality disorder PAST SURGICAL HISTORY Procedure Laterality Date PAST SURGICAL HISTORY OF tonsils PAST SURGICAL HISTORY OF D&C 2017 and 2020 PAST SURGICAL HISTORY OF 06/16/2024 double masectomy SOCIAL HISTORY[1] Family History Problem Relation Age of Onset other (multiple myeloma) Paternal Aunt Hypertension Maternal Grandmother Cancer Maternal Grandfather Lung cancer, history of tobacco use Esophageal Cancer Paternal Grandmother Heart Paternal Grandfather Stroke Paternal Grandfather Anesthesia Problems No Family History LABS: Tumor Markers DHEA-S Latest Ref Rng & Units 60.9 - 337.0 ug/dL 10/22/2019 307.6 02/04/2014 348.7 Latest Ref Rng & Units 08/18/2023 05/03/2024 05/31/2024 08/21/2024 Labs WBC 3.70 - 11.00 k/uL 7.45 6.82 Abs Neut (ANC) 1.45 - 7.50 k/uL 4.66 3.76 Hemoglobin 11.5 - 15.5 g/dL 14.5 13.9 Hematocrit 36.0 - 46.0 % 44.0 41.7 Platelet Count 150 - 400 k/uL 322 318 Albumin 3.9 - 4.9 g/dL 4.5 4.4 Alkaline Phosphatase 34 - 123 U/L 78 74 ALT 7 - 38 U/L 13 14 AST 13 - 35 U/L 15 18 Lipase 16 - 61 U/L 42 Bilirubin, Total 0.2 - 1.3 mg/dL 0.8 0.5 BUN 7 - 21 mg/dL 10 14 Calcium 8.5 - 10.2 mg/dL 9.4 9.4 Creatinine 0.58 - 0.96 mg/dL 0.78 0.80 Glucose 74 - 99 mg/dL 90 88 Magnesium 1.7 - 2.3 mg/dL 1.9 Potassium 3.7 - 5.1 mmol/L 4.5 4.5 Protein, Total 6.3 - 8.0 g/dL 6.8 7.3 Sodium 136 - 144 mmol/L 138 138 TSH 0.270 - 4.200 mIU/L 1.720 0.338 0.581 Free T4 0.9 - 1.7 ng/dL 0.9 1.5 IMAGING: CT CHEST: No results found. CT ABD/PELVIS: Results date: 09/13/2024 IMPRESSION: NO VENTRAL ABDOMINAL WALL MASS, HERNIA OR FLUID COLLECTION. 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 HEALTH MAINTENANCE: Last mammogram: 05/28/2024 Last colonoscopy: Last pap/HPV: 08/18/2024 SUBJECTIVE/ROS: Patient has a history of breast cancer, currently managed with Lupron injections and oral medications. She is planning to continue her current medication regimen for a few more years before considering a hysterectomy. She recently underwent an ultrasound and a CTA for deep inferior epigastric scuba diving instructor (GRETTA) flap planning, both of which were reported as normal. She is scheduled to discuss nerve repair and further reconstruction plans with her surgeon on November 04. She reports experiencing vaginal dryness, which was addressed by her clinician today. She also mentions that her recently had a brain tumor removed four weeks ago. OBJECTIVE: 10/11/2024 Vitals BP 129/88 SpO2 98 % Pulse 82 Resp 18 Weight 171 lb 15.3 oz (78 kg) More values are hidden. Newest values shown. Go to activity for more data. GEN: AO, NAD Remainder defered ASSESSMENT/PLAN: 1. Malignant neoplasm of breast, stage 1, estrogen receptor positive, unspecified laterality (HCC) (C50.919) Recent ultrasound and CTA results are normal. Patient is currently receiving Lupron injections and plans to continue oral medications for another couple of years before considering hysterectomy. - Continue current treatment regimen with Lupron injections and oral medications. - Discussed future option of laparoscopic hysterectomy and BSO when patient decides to proceed. - Advised patient to contact the clinic if there are any changes or concerns. Recording using [employer] software for draft documentation of the visit was discussed with the patient/authorized customer development representative; all questions welcomed and answered. Patient/authorized customer development representative agreed to proceed Rio Sanchez MD Some elements copied from my note on 08/30/2024 have been updated where appropriate, and reflect my current medical decision making from today. A letter and a copy of this office note were sent to: Isabela Olivera APRN.CNP Medical Decision Making: Problems: Low: Stable chronic illness Risk: Minimal: Minimal risk from testing/treatment Medical Decision Making Level: 2 - Straightforward [1] Social History Tobacco Use Smoking status: Never Smokeless tobacco: Former Types: Chew Quit date: 2009 Tobacco comments: For 3 years. Quit in 2009 Substance Use Topics Alcohol use: Yes Comment: monthly/social 2-3 drink mixed drink Drug use: Never documented in this encounter [facility] 10-11-2024 Note [facility] 10-11-2024 Instructions Jaimee Randall MD - 10/11/2024 1:45 PM EDT We discussed your breast cancer treatment and related side effects: - You are currently titrating up on Arimidex (an aromatase inhibitor) and taking it 5 days a week. Continue with this schedule and monitor how you feel. If the headaches persist or worsen, we can consider switching to Exemestane (Aromasin), which will cost $0 at your pharmacy. Let me know if you would like to make this change. - The vaginal dryness you are experiencing is a side effect of Zoladex and Arimidex. I recommend trying Replens, a vaginal moisturizer, which can be used a couple of times a week for maintenance and tissue health. It is available over the counter or by prescription. You can also try Uberlube as another option. I will provide printed instructions for these treatments. - For joint aches related to endocrine therapy, you can try tart zuniga juice concentrate. Dilute 1 ounce in 8 ounces of water and take it once daily. Alternatively, you can use tart zuniga juice concentrate in pill form. Regular exercise, such as walking for 30 minutes a day, 5 days a week, may also help alleviate joint pain. We discussed your high blood pressure: - You recently started Losartan, and your blood pressure is improving. Continue taking this medication as prescribed. - You have made positive changes to your diet by reducing processed foods and sugar. Keep up these efforts, as they are beneficial for your overall health. We discussed your mental health and stress: - You are experiencing anxiety and difficulty sleeping, likely related to recent stress and trauma. I recommend connecting with a therapist to help manage these feelings. I will place a referral for both breast psychology and general psychology services. You can decide whether to pursue these locally or through our clinic. We discussed your follow-up care: - Your next survivorship visit will be in 3 months with Radha, our nurse practitioner. This visit can be done virtually or in person, depending on your preference. The front desk person will assist with scheduling. - I will see you again 3 months after your survivorship visit to continue monitoring your progress and managing any side effects. Please let me know if you have any new or worsening symptoms, or if you need assistance with any of the above recommendations. documented in this encounter [facility] 10-11-2024 History of Present illness Narrative Images from the original note were not included. BREAST MEDICAL ONCOLOGY VISIT NOTE HISTORY AND PHYSICAL EXAMINATION PATIENT NAME: Yolande Davila (nee Gamertsfelder ) AGE: [age] year old CHIEF COMPLAINT: Breast [...] Stage IA (pT1a, pN0(i+), cM0, G1, ER+, DC+, HER2-) - Signed by Jaimee Randall MD on 07/05/2024 CURRENT TREATMENT: Arimidex 05/2024 Treatment goal 1. Oncology Curative Plan Name AMB GOSERELIN 10.8 D1 - Q91D Status Active Start Date 07/20/2024 End Date 04/19/2025 (Planned) Provider Jaimee Randall MD Treatment medication goserelin 10.8 mg injection (ZOLADEX), 10.8 mg, SUBCUTANEOUS, ONCE, 1 of 4 cycles Administration: 10.8 mg (07/20/2024) GENETICS: 2024 Your Multi-Cancer panel through [facility] was negative for a pathogenic variant. A variant of uncertain significance (VUS) was detected: CTNNA1 c.2558A>G ([id number]). Menopausal status at the time of cancer diagnosis: Premenopausal Patient's last menstrual period was 07/19/2024 (exact date). ONCOLOGIC HISTORY: Oncology History Carcinoma in situ of right breast 06/01/2024 Initial Diagnosis Carcinoma in situ of right breast 07/05/2024 Cancer Staged Staging form: Breast, AJCC 8th Edition - Pathologic stage from 07/05/2024: Stage IA (pT1a, pN0(i+), cM0, G1, ER+, DC+, HER2-) - Signed by Jaimee Randall MD on 07/05/2024 07/20/2024 - Supportive Treatment Treatment Summary Treatment goal 1. Oncology Curative Plan Name AMB GOSERELIN 10.8 D1 - Q91D Status Active Start Date 07/20/2024 End Date 04/19/2025 (Planned) Provider Jaimee Randall MD 11/2023: Unremarkable [...] on ductal carcinoma in-situ (DCIS). INTERVAL HISTORY: Recording using [employer] software for draft documentation of the visit was discussed with the patient/authorized customer development representative; all questions welcomed and answered. Patient/authorized customer development representative agreed to proceed Yolande Gomes is a 43-year-old female with a history of breast cancer, presenting for follow-up. Breast Cancer: - Currently on Zoladex injections and Arimidex. - Titrating Arimidex; currently taking 5 days/week. - Experiencing headaches, possibly related to Arimidex. - Reports numbness and pain under the armpits. - No new cough, dyspnea, or pain in other areas of the body. - Stiffness and difficulty bending over; not as active as before. - Taking Prozac for years; well-managed. - recently diagnosed with a brain tumor, causing increased anxiety and difficulty sleeping. - No current therapist; considering seeking therapy. Hypertension: - Diagnosed 2 weeks ago; BP readings 150-160/90-100 mmHg. - Started on losartan; BP readings improving. - Suspects Arimidex may be contributing to elevated BP. - Changed diet to unprocessed foods; reduced sugar intake. Review of Systems: Head: (+) headaches Breast: (+) axillary numbness, (+) axillary pain Respiratory: (-) shortness of breath Genitourinary: (+) vaginal dryness, (+) dyspareunia Musculoskeletal: (+) joint pain, (+) stiffness Psychiatric: (+) anxiety, (+) insomnia, (+) emotional numbness Review of Systems: Reviewed and otherwise negative PAST MEDICAL HISTORY Diagnosis Date Acne On spironolactone Anxiety Breast cancer (HCC) invasive ductal carcinoma R breast Dysmenorrhea Dyspareunia Hypothyroidism also known nodule Migraines Papanicolaou smear of cervix with low grade squamous intraepithelial lesion (LGSIL) 02/24/2006 PMH - PAST MEDICAL HISTORY OF bipolar, borderline personality disorder PAST SURGICAL HISTORY Procedure Laterality Date PAST SURGICAL HISTORY OF tonsils PAST SURGICAL HISTORY OF D&C 2017 and 2020 PAST SURGICAL HISTORY OF 06/16/2024 double masectomy Family History Problem Relation Age of Onset [...] monthly/social 2-3 drink mixed drink Drug use: Never SOCIAL HISTORY No social history on file. 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 No children. Current Outpatient Medications Medication Sig Dispense Refill levothyroxine (SYNTHROID) 100 mcg tablet TAKE 1 TABLET BY MOUTH 5 DAYS OF THE WEEK, SKIP ON 2 DAYS OF THE WEEK (MAY BE FRIDAY AND FRIDAY) 65 tablet 1 leuprolide acetate (LUPRON SUBCUTANEOUS) Inject subcutaneously every 3 months. eletriptan (RELPAX) 40 mg tablet Take 1 tablet by mouth as needed for migraine headache (see administration instructions). May repeat dose after 2 hours if needed. Maximum daily dose is 80 mg per day. 12 tablet 1 losartan (COZAAR) 25 mg tablet Take 1 tablet by mouth once daily. 30 tablet 2 anastrozole (ARIMIDEX) 1 mg tablet Take 1 mg by mouth once daily. Tapering up to 1 mg daily, following surgery FLUoxetine (PROZAC) 40 mg capsule Take 50 mg by mouth once daily. glycerin-min oil-polycarbophil (REPLENS) gel Use 1 application vaginally every 3 days in the morning. 42.5 g 3 iv contrast (will be provided with radiology test) CTA PELVIS.No IV access, insert saline lock prior to the sedation, infusion, injection for imaging exam. Discontinue saline lock post exam. If Pt. has a central line or IVAD, may access for administration according to line specific nursing protocol. Once exam is complete flush line and de-access according to line specific nursing protocol in the CT contrast administration guidelines link. (Patient not taking: Reported on 08/30/2024) 1 each 0 No current facility-administered medications for this visit. ALLERGIES: Penicillins OBJECTIVE BP 137/88 Pulse 86 Temp 36.7 C (98 F) (Temporal) Resp 18 Wt 78 kg (171 lb 15.3 oz) LMP 07/19/2024 (Exact Date) SpO2 99% BMI 30.46 kg/m 30.46 kg/m2 PHYSICAL EXAMINATION There was no physical exam performed at today's visit. ECOG PERFORMANCE STATUS: 0- Fully active, able to carry on all pre-disease performance w/o restriction. LABS: NA PATHOLOGY: As above IMAGING: As per above ASSESSMENT: This is a 43 year old female with a diagnosis of IDC G1 HR+ s/p BL mastectomy. She is tolerating endocrine therapy only moderately well. 1. Malignant neoplasm of breast, stage 1, estrogen receptor positive, unspecified laterality (HCC) (C50.919) 2. 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 - Continue current titration of Arimidex. - Discussed alternative aromatase inhibitors (exemestane, letrozole) if side effects persist; exemestane would be $0 cost for patient. - Advised tart zuniga juice concentrate (1 oz diluted in 8 oz water daily) for joint aches; pill formulation also acceptable. - Encouraged regular exercise (30 minutes/day, 5 days/week) to help manage joint aches. - Follow-up survivorship visit in 3 months with LOUIS Bravo (virtual or in-person); I will see patient again 3 months after that. 3. Vaginal dryness (N89.8) Vaginal dryness and dyspareunia likely secondary to Zoladex and Arimidex. - Recommended Replens moisturizer for regular use (2-3 times per week) to improve tissue health; prescription provided. - Provided patient instructions and education on difference between lubricants and moisturizers. - Discussed Uberlube as an alternative lubricant. - Recommended the book Come As You Are as a resource for sexual health. - Offered referral to Dr. Vaughan in sexual health clinic; patient informed of 6-month wait time. 4. Anxiety (F41.9) Patient experiencing acute anxiety and insomnia related to spouse's recent brain tumor diagnosis and subsequent medical emergency; no current suicidal ideation or severe functional impairment reported. - Continue Prozac as prescribed. - Referral to breast psychology through [facility] and formal consult for general psychology. RTC 3 months for survivorship visit then 3 more months with MD. Cancer Staging Carcinoma in situ of right breast Staging form: Breast, AJCC 8th Edition - Clinical stage from 06/01/2024: Stage 0 (cTis (DCIS), cN0, cM0, G2) - Unsigned - Pathologic stage from 07/05/2024: Stage IA (pT1a, pN0(i+), cM0, G1, ER+, DC+, HER2-) - Signed by Jaimee Randall MD on 07/05/2024 Appointments for Next 60 Days Date Time Provider Location Dept Phone 10/11/2024 9:00 AM LAB [facility] MILENA Foreman [phone] 10/11/2024 1:00 PM JAIMEE RANDALL [place] d [phone] 10/11/2024 1:45 PM [facility] [place] Bld [phone] 10/11/2024 2:30 PM RIO SANCHEZ [place] d [phone] 10/18/2024 8:00 AM KIMBERLY HIDALGO [facility] [phone] 10/26/2024 8:00 AM KIMBERLY HIDALGO [phone] 11/01/2024 8:00 AM KIMBERLY HIDALGO [facility] [phone] 11/04/2024 10:00 AM ISIAH MESSINA Main - A Bld [phone] 11/08/2024 8:00 AM KIMBERLY HIDALGO [facility] [phone] 1. Malignant neoplasm of breast, stage 1, estrogen receptor positive, unspecified laterality (HCC) - ICD9: 174.9, V86.0, ICD10: C50.919, Z17.0 (primary diagnosis) 2. Vaginal dryness - ICD9: 625.8, ICD10: N89.8 3. Anxiety - ICD9: 300.00, ICD10: F41.9 4. Ductal carcinoma in situ (DCIS) of right breast - ICD9: 233.0, ICD10: D05.11 Jaimee Randall MD Associate Staff [facility] 10/11/2024 I spent a total of 30 minutes on the date of the service which included preparing to see the patient, [id number] patient care, completing clinical documentation, obtaining and/or reviewing separately obtained history, performing a medically appropriate examination, counseling and educating the patient/family/caregiver, ordering medications, tests, or procedures, and communicating results to the patient/family/caregiver. Discussed in detail with the patient the diagnosis with review of pathology, biomarkers, labs, imaging, stage, prognosis, natural history and treatment options. Answered all questions and addressed all concerns in detail. The patient voiced understanding of the recommendations. Encouraged to reach out with questions/concerns. Additional intake questions: Has the patient had fever, nausea, vomiting, diarrhea, constipation, fatigue for > 1 week? Yes, vomiting Provider notified . Vomiting due to Migraine Does the patient have a decreased appetite? No Does patient want to see a Load Tester? No (yes to any of above refer patient to schedulers for dietitian appointment) ) Does patient have any new or increased numbness or tingling of extremities? No Is patient interested in fertility information? No Does patient need any prescription refills? No Does patient have an advanced directive in place? No, Patient refused referral to Social Work or Resource Center documented in this encounter [facility] 10-11-2024 Note [facility] 10-11-2024 Note [facility] 10-04-2024 Telephone encounter Note Patient verified. Called the patient to inquire about cancelled appointment today, the patient voices that she has a migraine and is not up to the drive. The patient will be here on 10/11, will reschedule with Dr Sanchez for that day virtual or in patient . Patricia Mayfield RN Gyn/Onc [employer] Machine Helper [facility] 10-04-2024 Miscellaneous Notes Patient verified. Called the patient to inquire about cancelled appointment today, the patient voices that she has a migraine and is not up to the drive. The patient will be here on 10/11, will reschedule with Dr Sanchez for that day virtual or in patient . Patricia Mayfield RN Gyn/Onc Alodize Machine Helper documented in this encounter [facility] 10-01-2024 Note HNO ID: [id number] Author: ISABELA OLIVERA APRN.MANAGER HUMAN RESOURCES Service: ? Author Type: Nurse Practitioner Type: Progress Notes Filed: 10/15/2024 08:09 Note Text: [facility] [address] [place] [address] Date of Evaluation: 10/01/2024 Patient Name: Yolande Gomes : 1980 Subjective Yolande Gomes is a 43-year-old female with a history of breast cancer, migraines, and hypothyroidism, presenting for an annual wellness visit and follow-up for HTN. Last 10 Encounter BP Readings: Date: BP: 10/01/2024 128/91 09/24/2024 150/96[c/o headache[ 08/30/2024 133/88 08/21/2024 138/66 08/20/2024 131/90 08/19/2024 140/81[likely from the medication they just had her stop taking, she also has had migraines due to the medication[ 08/13/2024 141/91 07/29/2024 115/91 07/20/2024 120/73 07/15/2024 116/73 Last 8 Encounter Wt Readings: Date: Wt: 10/01/2024 78 kg (171 lb 15.3 oz) 09/24/2024 78.3 kg (172 lb 9.9 oz) 08/30/2024 77.8 kg (171 lb 8.3 oz) 08/21/2024 77.8 kg (171 lb 8.3 oz) 08/20/2024 76.9 kg (169 lb 8.5 oz) 08/13/2024 75.9 kg (167 lb 5.3 oz) 07/29/2024 76.2 kg (168 lb 1.6 oz) 07/14/2024 75 kg (165 lb 5.5 oz) Annual Wellness Exam: - Double mastectomy and reconstruction with expanders in place; awaiting further reconstruction. - Genetic testing revealed an abnormal gene, but no family history of breast cancer. - Experiencing nocturnal awakenings around 9815-9146. - Denies dysphagia or GERD symptoms. - Recent travel included camping for a week before medical issues arose. Breast Cancer: - Diagnosed on 05/28, with surgery on 06/16. - Taking anastrozole with a recommended duration of 5-10 years. - Receiving Lupron injections every 3 months; first injection in June, next scheduled in 2 weeks. - Noted swelling and numbness in the right arm, with 2 lymph nodes removed from the right side. - Gained approximately 20 lbs since surgery; reports tightness in legs and rings. - Oncology monitoring estradiol and FSH levels monthly. Hypertension: - Recent initiation of losartan; experiencing improvement in systolic BP. - Diastolic BP remains around 90-91 mmHg. - Noted one episode of diarrhea after starting losartan, but no ongoing issues. - Home BP monitoring using a prescribed cuff on the left arm. Hypothyroidism: - Managed by endocrinology. - Taking levothyroxine 1 tablet Friday through Friday, skipping Friday and Friday. Depression: - Taking fluoxetine 50 mg, increased from 40 mg on recommendation from reconstructive surgeon Dr. Gipson. Migraines: - Managed by neurology. - Decreased frequency but increased intensity, with associated emesis. - Experiences visual auras described as squigglies or sparkles. - Taking eletriptan PRN. Review of Systems Constitutional: (+) weight gain Eyes: (+) visual disturbances Ears/Nose/Mouth/Throat: (-) dysphagia Gastrointestinal: (+) vomiting Musculoskeletal: (+) right arm pain Skin: (+) peripheral edema, (+) right arm swelling Neurological: (+) headaches, (+) right arm numbness Psychiatric: (+) insomnia PAST MEDICAL HISTORY Diagnosis Date Acne On spironolactone Anxiety Breast cancer (HCC) invasive ductal carcinoma R breast Dysmenorrhea Dyspareunia Hypothyroidism also known nodule Migraines Papanicolaou smear of cervix with low grade squamous intraepithelial lesion (LGSIL) 02/24/2006 PMH - PAST MEDICAL HISTORY OF bipolar, borderline personality disorder PAST SURGICAL HISTORY Procedure Laterality Date PAST SURGICAL HISTORY OF tonsils PAST SURGICAL HISTORY OF DANDC 2017 and 2020 PAST SURGICAL HISTORY OF 06/16/2024 double masectomy FAMILY HISTORY Problem Relation Age of Onset [...] monthly/social 2-3 drink mixed drink Drug use: Never Current Outpatient Medications Medication Sig losartan (COZAAR) 25 mg tablet Take 1 tablet by mouth once daily. anastrozole (ARIMIDEX) 1 mg tablet Take 1 mg by mouth once daily. Tapering up to 1 mg daily, following surgery FLUoxetine (PROZAC) 40 mg capsule Take 50 mg by mouth once daily. glycerin-min oil-polycarbophil (REPLENS) gel Use 1 application vaginally every 3 days in the morning. levothyroxine (SYNTHROID) 100 mcg tablet TAKE 1 TABLET BY MOUTH 5 DAYS OF THE WEEK, SKIP ON 2 DAYS OF THE WEEK (MAY BE FRIDAY AND FRIDAY) leuprolide acetate (LUPRON SUBCUTANEOUS) (more content not included)... [facility] 10-01-2024 History of Present illness Narrative Images from the original note were not included. [facility] [place] [address] [place] [address] Date of Evaluation: 10/01/2024 Patient Name: Yolande Gomes : 1980 Subjective Yolande Gomes is a 43-year-old female with a history of breast cancer, migraines, and hypothyroidism, presenting for an annual wellness visit and follow-up for HTN. Last 10 Encounter BP Readings: Date: BP: 10/01/2024 128/91 09/24/2024 150/96[c/o headache[ 08/30/2024 133/88 08/21/2024 138/66 08/20/2024 131/90 08/19/2024 140/81[likely from the medication they just had her stop taking, she also has had migraines due to the medication[ 08/13/2024 141/91 07/29/2024 115/91 07/20/2024 120/73 07/15/2024 116/73 Last 8 Encounter Wt Readings: Date: Wt: 10/01/2024 78 kg (171 lb 15.3 oz) 09/24/2024 78.3 kg (172 lb 9.9 oz) 08/30/2024 77.8 kg (171 lb 8.3 oz) 08/21/2024 77.8 kg (171 lb 8.3 oz) 08/20/2024 76.9 kg (169 lb 8.5 oz) 08/13/2024 75.9 kg (167 lb 5.3 oz) 07/29/2024 76.2 kg (168 lb 1.6 oz) 07/14/2024 75 kg (165 lb 5.5 oz) Annual Wellness Exam: - Double mastectomy and reconstruction with expanders in place; awaiting further reconstruction. - Genetic testing revealed an abnormal gene, but no family history of breast cancer. - Experiencing nocturnal awakenings around 9862-6085. - Denies dysphagia or GERD symptoms. - Recent travel included camping for a week before medical issues arose. Breast Cancer: - Diagnosed on 05/28, with surgery on 06/16. - Taking anastrozole with a recommended duration of 5-10 years. - Receiving Lupron injections every 3 months; first injection in June, next scheduled in 2 weeks. - Noted swelling and numbness in the right arm, with 2 lymph nodes removed from the right side. - Gained approximately 20 lbs since surgery; reports tightness in legs and rings. - Oncology monitoring estradiol and FSH levels monthly. Hypertension: - Recent initiation of losartan; experiencing improvement in systolic BP. - Diastolic BP remains around 90-91 mmHg. - Noted one episode of diarrhea after starting losartan, but no ongoing issues. - Home BP monitoring using a prescribed cuff on the left arm. Hypothyroidism: - Managed by endocrinology. - Taking levothyroxine 1 tablet Friday through Friday, skipping Friday and Friday. Depression: - Taking fluoxetine 50 mg, increased from 40 mg on recommendation from reconstructive surgeon Dr. Gipson. Migraines: - Managed by neurology. - Decreased frequency but increased intensity, with associated emesis. - Experiences visual auras described as squigglies or sparkles. - Taking eletriptan PRN. Review of Systems Constitutional: (+) weight gain Eyes: (+) visual disturbances Ears/Nose/Mouth/Throat: (-) dysphagia Gastrointestinal: (+) vomiting Musculoskeletal: (+) right arm pain Skin: (+) peripheral edema, (+) right arm swelling Neurological: (+) headaches, (+) right arm numbness Psychiatric: (+) insomnia PAST MEDICAL HISTORY Diagnosis Date Acne On spironolactone Anxiety Breast cancer (HCC) invasive ductal carcinoma R breast Dysmenorrhea Dyspareunia Hypothyroidism also known nodule Migraines Papanicolaou smear of cervix with low grade squamous intraepithelial lesion (LGSIL) 02/24/2006 PMH - PAST MEDICAL HISTORY OF bipolar, borderline personality disorder PAST SURGICAL HISTORY Procedure Laterality Date PAST SURGICAL HISTORY OF tonsils PAST SURGICAL HISTORY OF D&C 2017 and 2020 PAST SURGICAL HISTORY OF 06/16/2024 double masectomy FAMILY HISTORY Problem Relation Age of Onset [...] monthly/social 2-3 drink mixed drink Drug use: Never Current Outpatient Medications Medication Sig losartan (COZAAR) 25 mg tablet Take 1 tablet by mouth once daily. anastrozole (ARIMIDEX) 1 mg tablet Take 1 mg by mouth once daily. Tapering up to 1 mg daily, following surgery FLUoxetine (PROZAC) 40 mg capsule Take 50 mg by mouth once daily. glycerin-min oil-polycarbophil (REPLENS) gel Use 1 application vaginally every 3 days in the morning. levothyroxine (SYNTHROID) 100 mcg tablet TAKE 1 TABLET BY MOUTH 5 DAYS OF THE WEEK, SKIP ON 2 DAYS OF THE WEEK (MAY BE FRIDAY AND FRIDAY) leuprolide acetate (LUPRON SUBCUTANEOUS) Inject subcutaneously every 3 months. eletriptan (RELPAX) 40 mg tablet Take 1 tablet by mouth as needed for migraine headache (see administration instructions). May repeat dose after 2 hours if needed. Maximum daily dose is 80 mg per day. iv contrast (will be provided with radiology test) CTA PELVIS.No IV access, insert saline lock prior to the sedation, infusion, injection for imaging exam. Discontinue saline lock post exam. If Pt. has a central line or IVAD, may access for administration according to line specific nursing protocol. Once exam is complete flush line and de-access according to line specific nursing protocol in the CT contrast administration guidelines link. (Patient not taking: Reported on 08/30/2024) No current facility-administered medications for this visit. Objective BP 128/91 (BP Site: Left Arm, BP Position: Sitting) Pulse 97 Temp 36.6 C (97.9 F) Wt 78 kg (171 lb 15.3 oz) LMP 07/19/2024 (Exact Date) SpO2 98% BMI 30.46 kg/m Physical Exam GENERAL: NAD, alert and oriented. SKIN: Unremarkable, no rash or skin lesions. HEAD: Normocephalic. EYES: PERRLA, EOMI, conjunctiva clear. EARS: External ears normal, canals clear, TM's normal. NOSE/SINUSES: Nares normal. Septum midline. OROPHARYNX: Lips, mucosa, and tongue normal, good dentition. No oral lesions noted. NECK: Supple, no lymphadenopathy, no thyromegaly. LUNGS: Clear to auscultation bilaterally, no wheezes/rhonchi/rales. HEART: Regular rate and rhythm, no murmurs. No ectopy. ABDOMEN: soft, NT, ND, +bowel sounds in all quadrants. EXTREMITIES: No deformities, no skin discoloration, no edema. NEURO: Awake, alert and oriented x3, cranial nerves II-XII grossly intact, normal gait, no involuntary motions. PSYCH: Mood and affect are normal. Speech is normal. Behavior is normal and cooperative. Labs - Serum Cortisol (no date): Normal - (July) - Liver function: Normal - Kidney function: Normal - Blood counts: Normal - Thyroid function: Normal - Serum Vitamin D (no date): Normal - Genetic Testing (no date): No definitive abnormal findings Imaging - CT Scan of Sinuses (no date): Abnormal lesion detected prompting emergent evaluation Assessment & Plan 1. Routine general medical examination at a [facility] care facility (Z00.00) - Annual wellness exam completed. - Reviewed recent labs (end july): LFTs, renal function, CBC, thyroid function all WNL. - Ordered fasting lipid panel. - Offered one-time screening for hepatitis C and HIV per CDC guidelines; patient agreed. - Colorectal cancer screening due; deferred until after current oncologic treatment is complete. 2. Polycystic ovarian disease (E28.2) - stable, following with [facility]. 3. Hypertension, essential (I10) - Recent elevated BP readings; started on losartan. - Advised to take losartan in the morning with breakfast for optimal BP control; discussed that some patients may experience fatigue and prefer evening dosing, but morning is preferred for efficacy. - Discussed that losartan may take up to 2 weeks for maximum efficacy; advised to monitor BP at home and report readings at the 2-week nahum. - Advised to use left arm for BP measurements and blood draws due to right-sided lymph node removal. - Discussed that hypertension may be secondary to stress and current health issues; may be able to discontinue losartan in the future if BP stabilizes. - Follow-up in 1.5 weeks via Indexing message with home BP readings. 4. Hypothyroidism, acquired (E03.9) 5. Thyroid nodule (E04.1) - Managed by endocrinology; patient taking levothyroxine Friday-Friday, skipping Friday and Friday. - Recent thyroid labs WNL. 6. Invasive ductal carcinoma of breast, right (HCC) (C50.911) - S/P double mastectomy with expanders in place; awaiting reconstruction pending insurance approval. - On anastrozole with a planned duration of 5-10 years; receiving Lupron injections every 3 months (next due in 2 weeks). - Noted right arm swelling, pain, and numbness post-lymph node removal; receiving occupational therapy to prevent lymphedema. - Advised that inflammation and swelling may take up to a year to resolve; encouraged continuation of occupational therapy. - Advised to avoid blood draws and BP measurements on the right arm. 7. Migraine with aura and without status migrainosus, not intractable (G43.109) 8. 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 and with status migrainosus (G43.011) - Migraines have decreased in frequency but increased in intensity, with associated vomiting and visual aura. - Prescribed eletriptan as needed; refill sent to pharmacy. - Follow-up with neurology in December. 9. Screening for depression (Z13.31) - Patient on fluoxetine 50 mg daily, recently increased from 40 mg; reports adequate control of depressive symptoms. - Waking at 2-3 AM most nights; likely related to current stressors. 10. Special screening examination for viral disease (Z11.59) 11. Screening for HIV (human immunodeficiency virus) (Z11.4) - Offered one-time screening for hepatitis C and HIV per CDC guidelines; patient agreed. Discussed the above with the patient using shared decision making. The patient is in agreement with the diagnostic and treatment plans. Recording using ambient Narr8 software for draft documentation of the visit was discussed with the patient/authorized customer development representative; all questions welcomed and answered. Patient/authorized customer development representative agreed to proceed Isabela Olivera APRN.MANAGER HUMAN RESOURCES Return in about 3 months (around 01/01/2025) for blood pressure check. Pt in today for annual exam; has bp concerns. C/o headache since this morning. Is having sharp pain to L eye. Denies any chest pain or Shortness of Breath. Pt verbalized consent for AI Scribe today. documented in this encounter [facility] 10-01-2024 Note HNO ID: [id number] Author: MARINA BEAL LPN Service: ? Author Type: Licensed Nurse Type: Progress Notes Filed: 10/15/2024 08:09 Note Text: Pt in today for annual exam; has bp concerns. C/o headache since this morning. Is having sharp pain to L eye. Denies any chest pain or Shortness of Breath. Pt verbalized consent for AI Scribe today. [facility] 09-27-2024 History of Present illness Narrative Program_ID:[id number] Access Code: [email or web address] URL: [email or web address] Date: 09-27-2024 Prepared By: Kimberly Hidalgo Program Notes Exercises - Seated Scapular Retraction - 3-4 x daily - 7 x weekly - 1 sets - 10 reps - Supine Diaphragmatic Breathing - 2-3 x daily - 7 x weekly - 1 sets - 5 reps - Supine Shoulder Flexion AAROM with Hands Clasped - 2-3 x daily - 7 x weekly - 1 sets - 10 reps - Supine shoulder AAROM with towel - 2-3 x daily - 7 x weekly - 1 sets - 5-10 reps - Hands clasped together to top of head with pillows under the elbows - 2-3 x daily - 7 x weekly - 1 sets - 10 reps - T stretch - 2-3 x daily - 7 x weekly - 1 sets - 10 reps - Seated Elbow Flexion and Extension AROM - 3 x daily - 7 x weekly - 1 sets - 10 reps - Wrist flexion and extension with neutral forearm and hand relaxed - 3 x daily - 7 x weekly - 1 sets - 10 reps - Composite fist with extension - 4-6 x daily - 7 x weekly - 1 sets - 10 reps Patient Education - What Is Lymphedema? - Lifestyle Choices for Lymphedema - Early Detection for Lymphedema Images from the original note were not included. Episode Visit Count: 3 Therapist That Will Accept/Oversee The Plan Of Care: CONSTANTINO Burton Start of Care Date: 08/16/24 Onset Date: 06/16/24 Patient Identified by Name and Date of : Yes REHABILITATION AND SPORTS THERAPY OCCUPATIONAL THERAPY PROGRESS REPORT PLAN OF CARE UPDATE: Assessment: Yolande Gomes demonstrates improvement with bilateral shoulder range of motion. The patient has progressed toward goals. Patient continues to present with impairments in pain, ADL's, overall function, patient reported outcome measures, posture, range of motion, sensation, tissue tenderness, tissue tightness and scar adherence that interfere with reaching overhead, lifting, physical activities, heavy exertion, working, sleeping, use hand with arm at shoulder level, cleaning, reaching behind back (drying and curling her hair, mopping and vaccuming). Current prognosis is Good due to: current objective clinical presentation, good overall health status, good support system/ coping skills. The patient will benefit from continued skilled therapy services to meet the updated goals for this plan of care as noted below. PLAN FOR NEXT VISIT: Breast Rehab BUQs - STM, MFR and scar massage. Progress stretches. Goals updated 09/27/2024 Goals for Episode of Care: established 08/16/24 Patient able to verbalize skin care and lymphedema risk reductions. Progressing 09/27/2024 Patient will report a good understanding of diagnosis and OT recommendations for progression of program. Progressing 09/27/2024 Patient will demonstrate proper positioning of limb. Progressing 09/27/2024 Patient/family independent with home exercise program including self MLD, desensitization, skincare guidelines, scar massage, ROM exercises, strengthening exercises, cardiovascular exercise, and garment instructions. Progressing 09/27/2024 Patient will increase active ROM of bilateral to 155-160 degrees of flexion and abduction to allow patient to achieve neutral postural alignment, for improved performance of ADLs. Progressing 09/27/2024 Patient will decrease pain to: 0/10 at rest and 2/10 or less with activity. Progressing 09/27/2024 Patient will have supple scar with no tenderness to palpation and demonstrate and understanding of scar management. Progressing 09/27/2024 Patient/family independent with donning/doffing compression garment and proper wearing schedule and care of garment as needed. Order sent to AVELINO to sign 09/27/2024 Patient will demonstrate understanding of sensory re-education/ desensitization home program. Progressing 09/27/2024 Patient will have increased function and be able to reach overhead with the involved UEs. Progressing 09/27/2024 Patient Goals: To get back to where I was before my diagnosis physically. Good quality of life. Do my job. - Progressing 09/27/2024 Time Frame for Goals and Treatment : 02/12/25 Planned Interventions, Frequency, and Duration: 1x/week, 8 weeks Total Number of Visits Planned: 8 Planned Treatment Interventions: Therapeutic exercise (40409), Manual therapy (97133), Self-assisted management (33770), Patient/Family/Caregiver Education PLAN FOR NEXT VISIT: Breast Rehab BUQs - STM, MFR and scar massage. Progress stretches. SUBJECTIVE: My range of motion I feel is getting better. States she followed up with Dr Taylor and her blood pressure was checked it was up and has been up. States she received a message from her PCP that she was going to start her on a medication for her blood pressure. Functional Limitations: reaching overhead, lifting, physical activities, heavy exertion, working, sleeping, use hand with arm at shoulder level, cleaning, reaching behind back (drying and curling her hair, mopping and vaccuming) Pain: Pain Pain Level: (3/10 right and 2-3/10 left) Pain Location: Breast - Left, Breast - Right, Axilla - Right, Shoulder - Right, Shoulder - Left, Upper Arm - Right, Upper Arm - Left, Chest - Right, Chest - Left Description: Tightness Frequency: With movement, Continuous Worst Pain Level: (5-6/10) Best Pain Level: (2-3/10) Post Treatment Pain Post Treatment Pain Level: Better Post Treatment Pain Location: Breast - Left, Breast - Right, Axilla - Right, Shoulder - Right, Shoulder - Left, Upper Arm - Right, Upper Arm - Left, Chest - Right, Chest - Left Post Treatment Symptoms: states she feels looser and more relaxed PROMIS Scales 11/28/2023 08/08/2023 Higher is Better Phys Func - T Score 36 (moderate dysfunction) Phys Func - Percentile 8 Cognitve Function - T Score 40 (moderate dysfunction) 27 (severe dysfunction) 11/28/2023 08/08/2023 Lower is Better Pain Interference - T Score 72 (severe) 74 (severe) Pain Interference - Percentile 1 1 T-Score and Percentile Interpretation T-scores: mean of general population = 50. 5 points is clinically meaningfully difference Percentiles provide an indication of how the patient's score ranks in relation to the general population. Higher percentile rankings indicate better function/quality of life. 50th percentile is the average of the general population and indicates half of respondents had a worse score. OBJECTIVE MEASURES WITH LEVEL OF FUNCTION: Posture / Alignment Posture: Rounded shoulders Sensation - Upper Extremity UE Light Touch Sensation: (Numbness along both breasts. Tingly at times. Tingly at times right arm pit) Lymphedema Presents with: Functional Limitations, Pain, Decreased knowledge of lymphedema management, Comment, Swelling Comment: Tissue tightness, tissue tenderness, Myofasical restrictions, Decreased range of motion, Scar adherence Lymphedema Contributing Factors: Lymph Node Removal, Dependent Position Lymphedema Contributing Factors Comments: 2 Current Lymphedema Management: Garment recommendation/ vendor, Garment order requested/ sent Garment Recommendation/Vendor: wrist to axilla compressive sleeve and guantlet 20-30 mmHg, silicone border per patient perference / [employer] Garment Order Requested/Sent: 09/27/24 (requested) Scar Comments: Suture surfacing towards distal end of right breast incision Upper Extremity Circumferential Measurements R Thumb (proximal phalanx) (cm): 6 cm R Index Finger (proximal phalanx) (cm): 6.3 cm R Middle Finger (proximal phalanx) (cm): 6 cm R Ring Finger (proximal phalanx) (cm): 5.7 cm R Small Finger (proximal phalanx) (cm): 5.2 cm R DPC (cm): 19.2 cm R Distal Wrist Crease (DWC) (cm): 15.5 cm R 4 cm above wrist (cm): 19 cm R 8 cm above wrist (cm): 22 cm R 12 cm above wrist (cm): 24.8 cm R 16 cm above wrist (cm): 26.6 cm R 20 cm above wrist (cm): 26.8 cm R 24 cm above wrist (cm): 28.4 cm R 28 cm above wrist (cm): 30.6 cm R 32 cm above wrist (cm): 33.5 cm R 36 cm above wrist (cm): 36.5 cm R 40 cm above wrist (cm): 39.3 cm Affected Arm : Right Arm R Upper Extremity Volume: 2536.56 UE AROM R Shoulder Flex: 148 Degrees R Shoulder ABduction: 122 Degrees R Shoulder Internal Rotation (Functional): Hand above waist level R Shoulder External Rotation: 74 Degrees (with arm adducted to her side) R Shoulder External Rotation (Functional): Hand to back side of head with arm in scaption L Shoulder Flex: 154 Degrees L Shoulder ABduction: 148 Degrees L Shoulder Internal Rotation (Functional): T10 L Shoulder External Rotation: 70 Degrees (with arm adducted to her side) L Shoulder External Rotation (Functional): Hand to the back of her head with arm in scaption TREATMENT: Therapeutic Exercise: 1: Progress update completed and educated patient on the results. 3: *Supine flexion stretch with hands clasped together with use of stopper pillows to allow arms to rest in a stretched posture x 5 reps. 4: *Supine ER stretch with hand clasped to the top of her head and stopper pillows under her elbows to allow the arms to rest in a stretched posture x 5 reps. 5: *Reviewed supine flexion stretch with towel with use of stopper pillows to allow the arms to rest in a stretched posture. Patient completed 5 reps. 6: *Instructed patient on supine abduction (t) stretch with use of stopper pillows to allow the arms to rest in a stretched posture via verbal instruction and demonstration. Had patient complete while in the clinic to ensure understanding and proper technique. Patient completed 5 reps each arm. Instructed patient to add exercise to her home program, but perform one arm at a time and as the tissues loosen then can do both together. 7: *Educated patient on the benefits of supine time to relax and unwind. Had patient complete for a few minutes while in the clinic to feel the benefits. Instructed patient to do so at home 5-20 minutes, 2 times a day. Skilled Intervention: Patient was educated in proper exercise technique and purpose for exercises. Reviewed and educated patient on additions/changes for home exercise program as above (*). Skilled judgment was used in selection of appropriate interventions. Provided written instruction for home exercise program to facilitate proper performance and compliance. Correct performance of therapeutic exercises was facilitated with verbal, visual, and tactile cuing. Educated patient on rationale for performing exercises in regards to increase lymphatic fluid dynamics and ROM and function. Patient education as noted. Manual Therapy: 1: SENSITIVE EXAMINATION CONSENT: The sensitive examination was discussed with the Patient or Patient's Authorized Restaurant Kitchen And Service Manager. As applicable, any other physician, advance practice provider, medical student, or other health professional student that will be observing or involved in the sensitive examination for educational or training purposes was discussed with the Patient or Authorized Restaurant Kitchen And Service Manager. The Patient or Authorized Restaurant Kitchen And Service Manager has agreed to proceed with the sensitive examination. 2: Gentle STM to BUQ with focus on pecs, axilla and upper arm. 3: Gentle MFR to BUQ with focus to axilla and pecs. 4: Scar massage performed to soften and mobilize adhered tissues. Skilled Intervention: Manual skills to improve joint mobility, ROM, and decrease pain. Utilized anatomy knowledge of the therapist, and assessment of patient's response to intervention. Self-Halfway Management: 2: Discussed pain symptoms and concerns. 3: Reviewed signs and symptoms of lymphedema. 4: R UE circumference measured and educated patient on the results. 5: Reviewed prophylactic sleeve (air travel, with exercise or whole arm repetitive tasks) due to lymph node removal. Order sent to AVELINO to sign. 6: Educated patient on scar massage purpose and technique to reduce adhesions. Instructed patient to add at home 2 times a day. Skilled Intervention: Reviewed patient specific diagnosis in relation to activities of daily living/home management. Patient education Home exercise program: Access Code: [email or web address] URL: [email or web address] Date: 09/27/2024 Prepared by: Kimberly Hidalgo Exercises - Seated Scapular Retraction - 3-4 x daily - 7 x weekly - 1 sets - 10 reps - 5-10 hold - Supine Diaphragmatic Breathing - 2-3 x daily - 7 x weekly - 1 sets - 5 reps - Supine Shoulder Flexion AAROM with Hands Clasped - 2-3 x daily - 7 x weekly - 1 sets - 10 reps - 10 hold - Supine shoulder AAROM with towel - 2-3 x daily - 7 x weekly - 1 sets - 5-10 reps - 10 hold - Hands clasped together to top of head with pillows under the elbows - 2-3 x daily - 7 x weekly - 1 sets - 10 reps - 10 hold - T stretch - 2-3 x daily - 7 x weekly - 1 sets - 10 reps - 10 hold - Seated Elbow Flexion and Extension AROM - 3 x daily - 7 x weekly - 1 sets - 10 reps - 3-5 hold - Wrist flexion and extension with neutral forearm and hand relaxed - 3 x daily - 7 x weekly - 1 sets - 10 reps - 3-5 hold - Composite fist with extension - 4-6 x daily - 7 x weekly - 1 sets - 10 reps - 3-5 hold Patient Education - What Is Lymphedema? - Lifestyle Choices for Lymphedema - Early Detection for Lymphedema Billing Therapeutic Exercise Treatment Minutes: 34 Manual Therapy Treatment Minutes: 24 Self-Care/Home Management Treatment Minutes: 12 Skilled Treatment Time Minutes (timed and untimed codes): 70 Total Session Time (minutes): 78 Session Start Time : 1457 Session Stop Time : 1615 CONSTANTINO Burton documented in this encounter [facility] 09-27-2024 Note [facility] 09-24-2024 History of Present illness Narrative [facility] [place] Department of Breast Surgical Oncology [facility] FOLLOW UP HPI: Yolande Gomes (now Mrs. Davila) is a 43 year old female with a history significant for Hypothyroidism , no family history of breast or ovarian cancer, who presents for 3 month follow-up of Rt breast UOQ anterior subarelar low-int diff DCIS, ER positive, DC positive, HER2 FISH negative in the setting of Rt breast bloody nipple discharge. Rt breast UOQ mid depth at least ADH. Stage 0, [id number]. S/p b/l [facility], Rt SLNB on 06/16/24. Two focal areas of DCIS < 1 mm margin involvement. This is in area of previously marked skin (4-0 proline). Final path revealed 0.03cm of invasive ductal carcinoma. Indicated for re-excision of margin on 07/06/24, which were cleared. Stage IA (pT1a, pN0(i+), cM0, G1, ER+, DC+, HER2-) She presents today for 3 month follow up. Last visit with XRT in 06/23/2024 and XRT not indicated. Patient follows with Dr. Randall for medical oncology. Patient currently taking anastrozole and Lupron. Has had discussions with OBGYN / [facility] regarding oophorectomy/hysterectomy to forego Lupron. She will defer a decision until later, as she wants to address the breast concerns/reconstruction first. Right axilla with some tenderness and swelling, but patient reports PT has been helpful. Overall recovering well. Of note, she has been experiencing near daily headaches and elevated BP since her operation. Per patient, med onc aware and states it may be from medication regimen. Brain MRI was ordered by med onc but patient could not complete due to metal in tissue expanders. 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 Quit in 2009 Substance and Sexual Activity Alcohol use: Yes Comment: monthly/social 2-3 drink mixed drink Drug use: Never Sexual activity: Yes Partners: Male control/protection: Vasectomy Comment: vasectomy CURRENT MEDICATIONS: Current Outpatient Medications Medication Instructions cefADROxil (DURICEF) 500 mg, 2 TIMES DAILY cholecalciferol (VITAMIN D3) 5,000 unit tab Take by mouth. FLUoxetine (PROZAC) 50 mg, DAILY iv contrast (will be provided with radiology test) CTA PELVIS.No IV access, insert saline lock prior to the sedation, infusion, injection for imaging exam. Discontinue saline lock post exam. If Pt. has a central line or IVAD, may access for administration according to line specific nursing protocol. Once exam is complete flush line and de-access according to line specific nursing protocol in the CT contrast administration guidelines link. levothyroxine (SYNTHROID) 100 mcg tablet Take 1 tablet on 5 days of the week, skip on 2 days of the week (may be Friday and Friday) SEMAGLUTIDE, WEIGHT LOSS, SUBCUTANEOUS 70 Units, 1 TIME WEEKLY spironolactone (ALDACTONE) 50 mg tablet No dose, route, or frequency recorded. -Anastrozole -Lupron ALLERGIES: ALLERGIES Allergen Reactions Penicillins Anaphylaxis REVIEW OF SYSTEMS: GENERAL: No weight loss, malaise or fevers NECK: Negative for lumps, goiter, pain and significant neck swelling RESPIRATORY: Negative for cough, hemoptysis, wheezing, COPD, dyspnea or shortness of breath CARDIOVASCULAR: Negative for chest pain, leg swelling, hypertension, CHF or palpitations GI: No nausea, vomiting, or diarrhea : No history of dysuria, frequency or incontinence CONDUCTOR ORCHESTRA: Negative for abnormal vaginal bleeding, abnormal vaginal discharge MUSCULOSKELETAL: Negative for joint pain or swelling, back pain or muscle pain SKIN: Negative for lesions, rash, and itching HEMATOLOGY/LYMPHOLOGY: Negative for prolonged bleeding, bruising easily or swollen nodes ENDOCRINE: Negative for cold or heat intolerance, polyuria, polydipsia and goiter PHYSICAL EXAM: BP 150/96 (BP Position: Sitting) Pulse 81 Temp 36.6 C (97.8 F) (Temporal Artery) Resp 20 Wt 78.3 kg (172 lb 9.9 oz) LMP 07/19/2024 (Exact Date) SpO2 98% BMI 30.58 kg/m Body mass index is 30.58 kg/m . GENERAL:well-nourished, healthy, alert and oriented x 3, calm SKIN:warm, dry, skin color, texture, turgor normal HEAD/EYES:normocephalic, atraumatic, and anicteric NECK: supple, symmetrical, no thyromegaly RESPIRATORY: Respirations regular & non-labored ABDOMEN: soft, nondistended. No hepatomegaly., No masses MUSCULOSKELETAL: No observed limitations in range of motion of upper extremities. Patient ambulates independently BREASTS: The Patient was examined in the upright positions. LEFT BREAST: Surgically absent. Well-healed post surgical mastectomy scar. TE in place. RIGHT BREAST: Surgically absent. Well-healed post surgical mastectomy scar. TE in place. LEFT REGIONAL LYMPH NODES: There is no concerning supraclavicular, infraclavicular or axillary lymphadenopathy RIGHT REGIONAL LYMPH NODES: There is no concerning supraclavicular, infraclavicular or axillary lymphadenopathy. SLNBx incision well-healed. Medical student present SENSITIVE EXAMINATION CONSENT: The sensitive examination was discussed with the Patient or Patient's Authorized Restaurant Kitchen And Service Manager. As applicable, any other physician, advance practice provider, medical student, or other health professional student that will be observing or involved in the sensitive examination for educational or training purposes was discussed with the Patient or Authorized Restaurant Kitchen And Service Manager. The Patient or Authorized Restaurant Kitchen And Service Manager has agreed to proceed with the sensitive examination. IMAGING TO DATE: 09/13/24 CTA Abd/PEL with IV Con (ordered by Dr. Messina for pre-op planning) IMPRESSION: NO VENTRAL ABDOMINAL WALL MASS, HERNIA OR FLUID COLLECTION. 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 *Imaging below is prior to 07/06/24 Operation 05/20/24 US guided Bx at [facility] * * *Final Report* * * * * * SEE BOTTOM OF REPORT FOR ADDENDED TEXT * * * DATE OF EXAM: May 20 2024 8:55AM [facility] 0629 - [facility] NEHEMIAS KILLIAN RT / PROCEDURE REASON: Abnormal finding on radiology exam * * * * Physician Interpretation * * * * RESULT: [facility] [address] [facility] [place] [address] - - - - - - - [...] - - - - - - - #[id number] - [facility] US BIOPSY BREAST RT #[id number] - [facility] NEHEMIAS KILLIAN RT HISTORY: 43 year old [...] Christine Pulliam M.D. Electronically signed on: 05/20/2024 Top Frame Fitter: JD Transcribe Date/Time: May 20 2024 8:03A Dictated by : CHRISTINE PULLIAM MD This examination was interpreted and the report reviewed and electronically signed by: CHRISTINE PULLIAM MD on May 20 2024 9:18AM EST 05/10/2024 Diag MMG with CONSTANTIN 3:18 PM - Radiology, [place] [facility] * * *Final Report* * * * * * SEE BOTTOM OF REPORT FOR ADDENDED TEXT * * * DATE OF EXAM: May 10 2024 10:56AM [facility] 0627 - [facility] DIAG W CONSTANTIN RAN / PROCEDURE REASON: multiple diagnoses * * * * Physician Interpretation * * * * RESULT: [place] [address] - - - - - - - [...] - - - - - - - #[id number] - [facility] DIAG W CONSTANTIN RAN #[id number] - [facility] Jivox BREAST LTD RT #[id number] - [facility] BREAST LTD LT HISTORY: 43 year-old patient [...] Radha Kamara M.D. Electronically signed on: 05/10/2024 PATHOLOGY: 04/23/25 B/l [facility] + R SLNBx Operation FINAL DIAGNOSIS A. Right breast, mastectomy: - Invasive ductal carcinoma, North grade I, measuring 3 mm in greatest [...] adipose tissue: - Skin with intradermal nevus. ER 95%, DC 99%, HER2 equivocal --> FISH negative Gross Description A. Breast, Right, Mastectomy Received in formalin labeled breast [...] soft adipose tissue with dense fibrous tissue(5%). Restaurant Kitchen And Service Manager sections are submitted as follows: A1-A6 biopsy [...] margin A12-A14 slice 8 with radial margin O62-yoogq 9 mid upper quadrant nearest deep margin K85-xjsarzjildc parenchyma between biopsy site #2 and biopsy site #3 Biopsy site #3 with associated Q clip and upper outer quadrant; consecutive sections along the longest linear dimension from lateral to medial: A17-A18 with radial margin and skin H66-boecdaz flank and sectioned to biopsy site #1 with radial margin H10-vksyg 8 medial flanking section 2 biopsy clip #1 with radial margin E04-mkdfv 6 lateral flanking section of biopsy site #2 with radial margin E91-pzdeu 9 medial flanking section 2 biopsy site #2 with radial margin X65-gtwgp 6 lower inner quadrant with radial margin B33-tbnxs 12 lower inner quadrant with radial margin L94-knsdd 11 upper inner quadrant with radial margin F64-qwrox 8 lower outer quadrant with inferior margin A27-A28 slice 8 nipple totally submitted 07/06/24 Re-excision of margins of RIGHT breast FINAL DIAGNOSIS Right breast, skin margin, excision - Skin and subcutaneous tissue with post-surgical site changes, (please see comment). -The final, inked margin is negative for carcinoma. ASSESSMENT: (Z08) Encounter for postoperative examination after surgery for malignant neoplasm (primary encounter diagnosis) (C50.371) Invasive ductal carcinoma of right breast (HCC) Yolande Gomes (now Mrs. Davila) is a 43 year old female with a history significant for Hypothyroidism , no family history of breast or ovarian cancer, who presents for 3 month follow-up of Rt breast UOQ anterior subarelar low-int diff DCIS, ER positive, DC positive, HER2 FISH negative in the setting of Rt breast bloody nipple discharge. Rt breast UOQ mid depth at least ADH. Stage 0, [id number]. S/p b/l [facility]SM, Rt SLNB on 06/16/24. Two focal areas of DCIS < 1 mm margin involvement. This is in area of previously marked skin (4-0 proline). Final path revealed 0.03cm of invasive ductal carcinoma. Indicated for re-excision of margin on 07/06/24, which were cleared. Stage IA (pT1a, pN0(i+), cM0, G1, ER+, DC+, HER2-). Patient here for 3 month follow-up. Overall doing well. Attending physical therapy for right axillary pain and range of motion exercises. She will follow-up with Dr. Messina regarding reconstruction once insurance resolves. Patient will continue medical oncology recommendations with Dr. Randall (anastrozole + Lupron) and is established with [facility] should she pursue oophorectomy/hysterectomy. She can follow-up with breast surgical oncology as needed. PLAN: Follow-up with breast surgical oncology as needed Continue to follow-up with other specialties as scheduled (med-onc: Dr. Randall, plastic surgery: Dr. Messina) Attending Note: I have personally performed a face to face assessment of this Patient, which included an interview, physical exam, and discussion of the Breast Imaging, Assessment and Plan. I have reviewed and confirmed the history and collado findings as documented by the medical student and edited as appropriate. I spent a total of 40 minutes on the date of the service which included preparing to see the patient, [id number] patient care, completing clinical documentation, performing a medically appropriate examination, counseling and educating the patient/family/caregiver, communicating results to the patient/family/caregiver, and care coordination (not separately reported). Pradeep Taylor MD Additional intake questions: Has the patient had fever, nausea, vomiting, diarrhea, constipation, fatigue for > 1 week? Yes, fatigue Does the patient have a decreased appetite? No Does patient want to see a Load Tester? No (yes to any of above refer patient to schedulers for dietitian appointment) ) Does patient have any new or increased numbness or tingling of extremities? No Is patient interested in fertility information? No Does patient need any prescription refills? No Does patient have an advanced directive in place? No Electronically Signed By: Grecia Hammond LPN documented in this encounter [facility] 09-24-2024 Note [facility] 09-24-2024 Note [facility] 09-13-2024 History of Present illness Narrative Radiology Service Progress Note DATE OF SERVICE: September 13, 2024 TIME: 9:45 AM PATIENT WEIGHT: 165LBS PATIENT IDENTITY VERIFICATION COMPLETED USING TWO (2) [...] at . status: : No status: NO. ALLERGIES: Reviewed and unchanged CONTRAST ALLERGY: No EXAM: CT -CONTRAST INDUCED NEPHROPATHY RISK FACTORS: Not applicable CREATININE: Creatinine Date Value Ref Range Status 08/21/2024 0.80 0.58 - 0.96 mg/dL Final 05/31/2024 0.78 0.58 - 0.96 mg/dL Final 07/24/2023 0.88 0.58 - 0.96 mg/dL Final Estimated Glomerular Filtration Rate Date Value Ref Range Status 08/21/2024 93 >=60 mL/min/1.73m Final Comment: Estimated Glomerular Filtration [...] Status 10/22/2019 >60 Final P.O.C.T. RESULTS: N/A September 13, 2024 TREATMENT: No Hydration needed. IV SITE: Ambulatory: A peripheral IV was started in the Left antecubital site with a Angio cath: 20 gauge. and A Saline lock was inserted per protocol IV SITE APPEARANCE: Clean,Dry and Intact SIGNATURE: Aurora Moya RN PATIENT NAME: Yolande Gomes DATE: September 13, 2024 TIME: 9:45 AM Radiology Service Progress Note PATIENT NAME: Yolande Gomes DATE OF SERVICE: September 13, 2024 TIME: 10:03 AM PATIENT IDENTITY VERIFICATION COMPLETED USING TWO [...] PATIENT PRESENTS WITH AN IMPLANTABLE OR ATTACHED ROLLING ATTENDANT: No RADIOLOGY DEPARTMENT: CT; Exam(s) Completed: Abdomen/Pelvis PERIPHERAL IV DATA: Site assessment: Clean,Dry and Intact, Site disposition Discontinued SIGNED BY: RT Stan(R) September 13, 2024 10:03 AM documented in this encounter [facility] 09-13-2024 Note [facility] 09-13-2024 Note [facility] 09-12-2024 Note Indication Evaluation of abnormal uterine bleeding: menorrhagia, dysmenorrhea Impression Normal appearing anteverted uterus that measures 73 mm x 31 mm x 53 mm. Endometrium measures 1.6 mm. Normal endometrial contour. Both ovaries are visualized and appear normal with follicular change. No adnexal masses were observed. There is no free fluid visualized in the peritoneal cavity. Recommendations Follow up as clinically indicated. Menstrual History LMP on 07/19/2024. Cycle: irregular cycle. Bleeding: menorrhagia, dysmenorrhea Method Transabdominal, transvaginal, 3D ultrasound examination, Color Doppler examination Uterus Uterus: Visualized Uterus position: anteverted Description of uterine malformations: normally shaped Myometrium: heterogeneous Endometrium: normal Cervix details: normal Uterus length 73 mm Uterus width 53 mm Uterus height 31 mm Uterus Vol 63.0 cm Endometrial thickness, total 1.6 mm Right Ovary Rt ovary: Visualized Rt ovary morphology: premenopausal normal follicular Rt ovary D1 27 mm Rt ovary D2 21 mm Rt ovary D3 22 mm Rt ovary Vol 6.3 cm Left Ovary Lt ovary: Visualized Lt ovary morphology: premenopausal normal follicular Lt ovary D1 29 mm Lt ovary D2 24 mm Lt ovary D3 18 mm Lt ovary Vol 6.7 cm Cul de Sac Visualized. no free fluid visualized Performed By: Gemma Cherry RDMS Read By: Chery Abarca M.D. 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 Encounter Diagnosis ICD-10-CM 1. Abnormal uterine bleeding (AUB) N93.9 Please see report under imaging tab. Chery Abarca MD September 12, 2024 9:39 PM documented in this encounter [facility] 09-06-2024 History of Present illness Narrative Program_ID:[id number] Access Code: [email or web address] URL: [email or web address] Date: 09-06-2024 Prepared By: Kimberly Hidalgo Program Notes Exercises - Seated Scapular Retraction - 3-4 x daily - 7 x weekly - 1 sets - 10 reps - Supine Diaphragmatic Breathing - 2-3 x daily - 7 x weekly - 1 sets - 5 reps - Supine Shoulder Flexion AAROM with Hands Clasped - 2-3 x daily - 7 x weekly - 1 sets - 10 reps - Hands clasped to forehead - 2-3 x daily - 7 x weekly - 1 sets - 10 reps - Seated Elbow Flexion and Extension AROM - 3 x daily - 7 x weekly - 1 sets - 10 reps - Wrist flexion and extension with neutral forearm and hand relaxed - 3 x daily - 7 x weekly - 1 sets - 10 reps - Composite fist with extension - 4-6 x daily - 7 x weekly - 1 sets - 10 reps - Supine shoulder AAROM with towel - 2-3 x daily - 7 x weekly - 1 sets - 5-10 reps Patient Education - What Is Lymphedema? - Lifestyle Choices for Lymphedema - Early Detection for Lymphedema Episode Visit Count: 2 Therapist That Will Accept/Oversee The Plan Of Care: CONSTANTINO Burton Start of Care Date: 08/16/24 Onset Date: 06/16/24 Patient Identified by Name and Date of : Yes REHABILITATION AND SPORTS THERAPY OCCUPATIONAL THERAPY TREATMENT NOTE ASSESSMENT: Yolande Gomes tolerated the session with decreased symptoms. She demonstrated difficulty with tissue tightness and range of motion, but demonstrated improvements with bilateral shoulder range of motion. The patient will continue to benefit from ongoing skilled occupational therapy to progress toward set goals and for reassessment by supervising therapist. PLAN FOR NEXT VISIT: Complete progress update. Breast Rehab BUQs - STM and MFR. Progress stretches. Add scar massage. SUBJECTIVE: Patient reports compliance with her home exercise program. They (referring to exercises) are helpful. My wrist has been a little more swollen then it has been. It comes and goes. It is not a constant. My fingers swell too. Pain: Pain Pain Level: (3/10 right and 2-3/10 left) Pain Location: Breast - Left, Breast - Right, Axilla - Right, Shoulder - Right, Shoulder - Left, Upper Arm - Right, Upper Arm - Left, Chest - Right, Chest - Left Post Treatment Pain Post Treatment Pain Level: 2 Post Treatment Pain Location: Axilla - Right, Breast - Right, Chest - Left, Chest - Right, Upper Arm - Right Post Treatment Pain Description: Tenderness Post Treatment Symptoms: feel looser OBJECTIVE MEASURES WITH LEVEL OF FUNCTION: Sensation - Upper Extremity UE Light Touch Sensation: (Numbness along both breasts. Tingly at times.) Lymphedema Scar Comments: Suture surfacing at distal end Upper Extremity Circumferential Measurements R Thumb (proximal phalanx) (cm): 6 cm R Index Finger (proximal phalanx) (cm): 6.3 cm R Middle Finger (proximal phalanx) (cm): 6.1 cm R Ring Finger (proximal phalanx) (cm): 5.7 cm R Small Finger (proximal phalanx) (cm): 5.2 cm R DPC (cm): 19 cm R Distal Wrist Crease (DWC) (cm): 15.1 cm R 4 cm above wrist (cm): 18.6 cm R 8 cm above wrist (cm): 21.8 cm R 12 cm above wrist (cm): 24.7 cm R 16 cm above wrist (cm): 26.5 cm R 20 cm above wrist (cm): 26.7 cm R 24 cm above wrist (cm): 27.9 cm R 28 cm above wrist (cm): 30.6 cm R 32 cm above wrist (cm): 33.4 cm R 36 cm above wrist (cm): 37 cm R 40 cm above wrist (cm): 39.1 cm Affected Arm : Right Arm R Upper Extremity Volume: 2520.01 UE AROM R Shoulder Flex: 130 Degrees R Shoulder ABduction: 120 Degrees L Shoulder Flex: 152 Degrees L Shoulder ABduction: 135 Degrees TREATMENT: Therapeutic Exercise: 1: Reviewed home exercise program and the benefits of low load, prolonged stretching. 2: *Scapular retraction x 2 reps. 3: *Reviewed supine flexion stretch with hands clasped together with use of stopper pillows to allow arms to rest in a stretched posture. Patient completed 5 reps. Cues provided for techniuqe and to hold the stretch longer. 4: *Reviewed supine ER stretch with hand clasped to forehead. Patient completed 2 reps. Cues provided for technique and to hold the stretch longer. Progressed stretch with patient going to the top of her head and stopper pillows under her elbows to allow the arms to rest in a stretched posture. Patient completed 5 reps. Instructed patient to progress to top of head at home. 5: *Instructed patient on supine flexion stretch with towel with use of stopper pillows to allow the arms to rest in a stretched posture via verbal instruction and demonstration. Had patient complete while in the clinic to ensure understanding and proper technique. Patient completed 5 reps. Instructed patient to add exercise to her home program. Handouts provided via Strands. Skilled Intervention: Patient was educated in proper exercise technique and purpose for exercises. Reviewed and educated patient on additions/changes for home exercise program as above (*). Skilled judgment was used in selection of appropriate interventions. Provided written instruction for home exercise program to facilitate proper performance and compliance. Correct performance of therapeutic exercises was facilitated with verbal, visual, and tactile cuing. Educated patient on rationale for performing exercises in regards to increase lymphatic fluid dynamics and ROM and function. Patient education as noted. Manual Therapy: 1: SENSITIVE EXAMINATION CONSENT: The sensitive examination was discussed with the Patient or Patient's Authorized Restaurant Kitchen And Service Manager. As applicable, any other physician, advance practice provider, medical student, or other health professional student that will be observing or involved in the sensitive examination for educational or training purposes was discussed with the Patient or Authorized Restaurant Kitchen And Service Manager. The Patient or Authorized Restaurant Kitchen And Service Manager has agreed to proceed with the sensitive examination. 2: Gentle STM to BUQ with focus on pecs, axilla and upper arm. 3: Gentle MFR to BUQ with focus to axilla and pecs. Skilled Intervention: Manual skills to improve joint mobility, ROM, and decrease pain. Utilized anatomy knowledge of the therapist, and assessment of patient's response to intervention. Self-Halfway Management: 2: Discussed pain symptoms and concerns. 3: Reviewed signs and symptoms of lymphedema, at risk precautions and prevention methods. 4: R UE circumference measured and educated patient on the results. 5: Discusssed prophylactic sleeve (air travel, with exercise or whole arm repetitive tasks) due to lymph node removal. Plan to continue to monitor for now. Skilled Intervention: Reviewed patient specific diagnosis in relation to activities of daily living/home management. Patient education Home exercise program: Access Code: [email or web address] URL: [email or web address] Date: 09/06/2024 Prepared by: Kimberly Hidalgo Exercises - Seated Scapular Retraction - 3-4 x daily - 7 x weekly - 1 sets - 10 reps - 5-10 hold - Supine Diaphragmatic Breathing - 2-3 x daily - 7 x weekly - 1 sets - 5 reps - Supine Shoulder Flexion AAROM with Hands Clasped - 2-3 x daily - 7 x weekly - 1 sets - 10 reps - 10 hold - Hands clasped to forehead - 2-3 x daily - 7 x weekly - 1 sets - 10 reps - 10 hold - Seated Elbow Flexion and Extension AROM - 3 x daily - 7 x weekly - 1 sets - 10 reps - 3-5 hold - Wrist flexion and extension with neutral forearm and hand relaxed - 3 x daily - 7 x weekly - 1 sets - 10 reps - 3-5 hold - Composite fist with extension - 4-6 x daily - 7 x weekly - 1 sets - 10 reps - 3-5 hold - Supine shoulder AAROM with towel - 2-3 x daily - 7 x weekly - 1 sets - 5-10 reps - 10 hold Patient Education - What Is Lymphedema? - Lifestyle Choices for Lymphedema - Early Detection for Lymphedema Billing Therapeutic Exercise Treatment Minutes: 25 Manual Therapy Treatment Minutes: 15 Self-Care/Home Management Treatment Minutes: 18 Skilled Treatment Time Minutes (timed and untimed codes): 58 Total Session Time (minutes): 63 Session Start Time : 915 Session Stop Time : 101 SHLETON Burton/Nahid documented in this encounter [facility] 09-06-2024 Note [facility] 08-30-2024 History of Present illness Narrative Images from the original note were not included. DATE OF SERVICE: 08/30/2024 PROBLEM: Yolande Gomes is a consult from Dr. Roger for evaluation of possible oophroectomy.. HPI: Ms. Gomes is a 43 year old female who has a past medical history of Acne, Anxiety, Dysmenorrhea, Dyspareunia, Hypothyroidism, Migraines, Papanicolaou smear of cervix with low grade squamous intraepithelial lesion (LGSIL) (02/24/2006), and PMH - PAST MEDICAL HISTORY OF. Breast Cancer History - Underwent a double mastectomy in May. - Pathology: Estrogen and progesterone receptor-positive, HER2-negative. - Started on Lupron injections in June. - Began taking anastrozole (Arimidex) two weeks post-Lupron injection. Not on tamoxifen given interaction with Prozac. - Oncologist anticipates 5-10 years of treatment with Lupron and anastrozole - Inquired about a complete hysterectomy and oophorectomy with her oncologist, who is supportive if a surgeon agrees. - Genetic testing: BRCA-negative, with an uncertain variant that was positive. -Interested in what surgeries can help decrease side effects of BC medications Arimidex discontinued due to headaches, no improvement since stopping. Genetics: 2024 Your Multi-Cancer panel through [facility] was negative for a pathogenic variant. A variant of uncertain significance (VUS) was detected: CTNNA1 [id number] ([id number]). IMAGING: No recent relevant imaging LABS: Tumor Markers DHEA-S Latest Ref Rng & Units 60.9 - 337.0 ug/dL 10/22/2019 307.6 02/04/2014 348.7 PATHOLOGY: FINAL DIAGNOSIS Date Value Ref Range Status 07/06/2024 Final Right breast, skin margin, excision - Skin and subcutaneous tissue with post-surgical site changes, (please see comment). -The final, inked margin is negative for carcinoma. PJM/pjm/07/08/24 HISTORIES: PAST GYNECOLOGIC HISTORY: OB History Gravida0 Para0 Term0 Preterm0 AB0 Living0 SAB0 IAB0 Ectopic0 Multiple0 Live Births0 LMP: Patient's last menstrual period was 07/19/2024 (exact date). Last pap/HPV: 08/18/2024 PAST SURGICAL HISTORY Procedure Laterality Date PAST SURGICAL HISTORY OF tonsils PAST SURGICAL HISTORY OF D&C 2017 and 2020 PAST MEDICAL HISTORY Diagnosis Date Acne On spironolactone Anxiety Dysmenorrhea Dyspareunia Hypothyroidism also known nodule Migraines Papanicolaou smear of cervix with low grade squamous intraepithelial lesion (LGSIL) 02/24/2006 PMH - PAST MEDICAL HISTORY OF bipolar, borderline personality disorder FAMILY HISTORY Problem Relation Age of Onset other (multiple myeloma) Paternal Aunt Hypertension Maternal Grandmother Cancer Maternal Grandfather Lung cancer, history of tobacco use Esophageal Cancer Paternal Grandmother Heart Paternal Grandfather Stroke Paternal Grandfather Anesthesia Problems No Family History Family history of breast, ovarian, uterine or colon cancer: No Family history of VTE: No SOCIAL HISTORY Social History Tobacco Use Smoking status: Never Smokeless tobacco: Former Types: Chew Quit date: 2009 Tobacco comments: For 3 years. Quit in 2009 Substance Use Topics Alcohol use: Yes Comment: monthly/social 2-3 drink mixed drink Drug use: Never Marital Status: HEALTH MAINTENANCE: Last mammogram: 05/28/2024 SUBJECTIVE/ROS: Patient has a history of ER/DC-positive breast cancer, currently managed with anastrozole and Lupron. She is concerned about the side effects of these medications, particularly on bone health, muscle pain, and arthritis. She expresses a desire to reduce the number of medications and is considering surgical options to eliminate the need for injections. She reports experiencing significant side effects, including frequent migraines that have resulted in multiple ER visits. She is worried about the impact of these treatments on her quality of life, stating that she wants to maintain a good quality of life without feeling sick, especially during what she considers the best years of her life. She has been advised that the duration of her current medication regimen could be 5 to 10 years. She is also concerned about the potential for bone fractures and is interested in understanding the implications of different treatment options on her bone health. Constitutional: (+) fatigue Head: (+) migraines Genitourinary: (+) abnormal uterine bleeding OBJECTIVE: VITALS: BP 133/88 (BP Site: Left Arm, BP Position: Sitting, BP Cuff Size: Regular Adult) Pulse 88 Temp 36.9 C (98.5 F) Ht 160 cm (5' 3) Wt 77.8 kg (171 lb 8.3 oz) LMP 07/19/2024 (Exact Date) SpO2 98% BMI 30.38 kg/m GENERAL: Patient is a well developed, well nourished female. She is alert, oriented, pleasant, and cooperative. SKIN: Color, texture, turgor normal. No rashes or lesions. Remainder deferred ASSESSMENT/PLAN: 43 y/o with ER+ breast cancer presenting to discuss oophorectomy +/- hysterectomy. 1. Abnormal uterine bleeding (AUB) (N93.9) Likely secondary to hormonal fluctuations associated with current treatment regimen. - Ordered non-urgent pelvic ultrasound to evaluate uterine and ovarian structures. - Schedule ultrasound at any [facility] location. 2. Malignant neoplasm of breast, stage 1, estrogen receptor positive, unspecified laterality (HCC) (C50.919) Currently on anastrozole and Lupron therapy. Discussed concerns about side effects and quality of life. Explained that side effects are primarily due to estrogen withdrawal and are similar to menopausal symptoms. - Discussed the option of bilateral salpingo-oophorectomy (BSO) to eliminate the need for Lupron injections, noting that this would not eliminate menopausal symptoms. - Advised patient to consult with medical oncologist Dr. Killian to discuss the duration of current medication regimen and potential benefits of BSO. - Educated on the importance of weight-bearing exercise, calcium, and vitamin D to maintain bone health. - Follow-up discussion regarding surgery can be scheduled virtually or in person as needed. 3. 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 - Coordinate with medical oncologist to ensure comprehensive treatment strategy. - Consider timing of BSO in relation to planned reconstructive surgery (GRETTA flap) to avoid complications. 4. examination or test, unconfirmed (Z32.00) Rio Sanchez MD Recording using [employer] software for draft documentation of the visit was discussed with the patient/authorized customer development representative; all questions welcomed and answered. Patient/authorized customer development representative agreed to proceed A letter and a copy of this office note were sent to: Jaimee Randall MD - Aysha Roger [address] [facility] [id number] - Isabela Olivera APRN.CNP (PCP) Medical Decision Making: Problems: Moderate: New problem with uncertain prognosis Data: Unique test(s) ordered: 2 Risk: Moderate: Decision on minor surgery w/ risk factors Medical Decision Making Level: 4 - Moderate documented in this encounter [facility] 08-30-2024 Note [facility] 08-20-2024 Instructions Shelly Sheridan APRN.RODO - 08/20/2024 7:59 AM EDT We discussed your persistent headaches, dizziness, and elevated blood pressure: - I am concerned about your ongoing symptoms, including the persistent headache, dizziness, and elevated blood pressure, which are new for you. While I do not believe these symptoms are related to cancer, I want to rule out other potential causes, including mini-strokes. - I have ordered a brain MRI to evaluate your symptoms further. You can schedule this at [facility] or another location within our system. Please stop at scheduling to arrange this. - If your dizziness or headache worsens, or if you experience vomiting, numbness and tingling, or weakness, please go to the ER immediately. We discussed your current medications and treatment plan: - Hold off on starting exemestane for now. It is okay to be off your medication temporarily, given your history of a small tumor with no lymph node involvement. Once we have more information, we can discuss switching to exemestane, which may be better tolerated than anastrozole. We discussed your breast pain and physical therapy: - Your breast exam was normal, but I noted scar tissue, which may be contributing to your discomfort. Continue with physical therapy, as it seems to be helping, and follow up with your therapist as scheduled. We discussed next steps: - I will inform your migraine specialist about your current symptoms and the plan for a brain MRI. - If you experience any new or worsening symptoms, such as one-sided weakness, numbness, or tingling, please seek immediate medical attention. Please let us know if you have any additional questions or concerns. documented in this encounter [facility] 08-20-2024 History of Present illness Narrative Recording using ambient Narr8 software for draft documentation of the visit was discussed with the patient/authorized customer development representative; all questions welcomed and answered. Patient/authorized customer development representative agreed to proceed ATTENDING PHYSICIAN: Dr. 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 REASON FOR VISIT / CHIEF COMPLAINT: evaluation after medication holiday SURVIVORSHIP VISIT: Not yet completed CURRENT SYSTEMIC THERAPY FOR BREAST CANCER: Anastrozole 1mg daily (currently on HOLD) Goserelin every 3 months (July 20, 2024 - present) PAST THERAPY FOR BREAST CANCER: Bilateral mastectomy with TE reconstruction and SLNBx (June 16, 2024; 3mm, 1 / 2 nodes + for isolated tumor cells) Right breast excision of margin (July 06, 2024; negative for carcinoma) Goserelin / aromatase inhibitor (July 20, 2024 - present) INTERVAL HISTORY: Pt presents today with her . Updates / Concerns noted at time of today's visit are as follows: Headaches: - Persistent headaches since initiating AI earlier this month - She has a history of migraines, managed by Dr. Sharpe. - Current migraine medication provides partial relief but does not completely alleviate the pain. This week the headaches are particularly persistent - Headaches began after starting anastrozole; more bad days than good while on the medication. - Discontinued anastrozole with no improvement in headaches. - Recent ED visit on August 05 for headaches and vomiting; no further testing was done. Elevated Blood Pressure: - Yolande noted elevated blood pressure readings at home, ranging from 130-150/80-100 mmHg. - Usual blood pressure readings are 100-120/70s mmHg. - No significant changes in diet, specifically denies increased salt intake. - No major life stressors reported. Dizziness: - Yolande reports feeling dizzy at times, especially with position changes and walking. - Denies one-sided weakness, numbness, or tingling. - Family history of stroke in paternal grandfather. Breast Cancer: - History of breast cancer, previously on anastrozole. - Yolande is experiencing pain in the upper and lower breast tissue, with discomfort when raising arms. - Recently started physical therapy, with a follow-up appointment on the . REVIEW OF SYSTEMS: Head: (+) headache, (+) pulsatile sensation in head Breast: (+) breast pain Gastrointestinal: (+) nausea, (-) constipation, (-) diarrhea, (-) vomiting Neurological: (+) dizziness, (-) unilateral weakness, (-) paresthesias Psychiatric: (+) anxiety The remainder of the review of systems is unremarkable. PHYSICAL EXAMINATION: BP 131/90 Pulse 89 Temp 36.3 C (97.3 F) (Temporal) Resp 18 Wt 76.9 kg (169 lb 8.5 oz) LMP 07/19/2024 (Exact Date) SpO2 99% BMI 30.03 kg/m General appearance: well appearing, alert, in no acute distress Skin: Skin color, texture, turgor normal, no rashes or lesions Head: unremarkable Neck: Supple, no adenopathy Lungs: lungs clear to auscultation, no wheezing or rhonchi Heart: Negative, RRR Abdomen: Normal abdominal exam, Abdomen soft, non-tender. No masses, organomegaly Extremities: Extremities normal. No deformities or edema Neuro: Bilateral pupils are equal and reactive. Bilateral lower and upper extremities with +5 strength equally. Breasts: Bilateral breast exam reveals mastectomy with tissue health and fitness instructor reconstruction, there is no axillary adenopathy, concerning skin changes or palpable lesions LABS/IMAGING: No labs done at time of today's visit IMPRESSION: Cancer Staging Carcinoma in situ of right breast Staging form: Breast, AJCC 8th Edition - Clinical stage from 06/01/2024: Stage 0 (cTis (DCIS), cN0, cM0, G2) - Unsigned - Pathologic stage from 07/05/2024: Stage IA (pT1a, pN0(i+), cM0, G1, ER+, DC+, HER2-) - Signed by Jaimee Randall MD on 07/05/2024 PLAN: After evaluation and review of the ongoing treatment plan, the following referral/recommendations have been made. (D05.11) Ductal carcinoma in situ (DCIS) of right breast (primary encounter diagnosis) (R51.9) Headaches Plan: MRI BRAIN WO/W IVCON, iv contrast (will be provided with radiology test) (R11.0) Nausea Plan: MRI BRAIN WO/W IVCON, iv contrast (will be provided with radiology test) (R42) Dizziness Plan: MRI BRAIN WO/W IVCON, iv contrast (will be provided with radiology test) (G43.009) Migraine without aura, not intractable, without status migrainosus (Z82.3) Family history of stroke - Active listening and support provided / All questions / concerns were addressed to her satisfaction - Continue with active therapy in the adjuvant setting for breast cancer: Continue to HOLD AI at this time until headaches are fully evaluated - we briefly discussed exemestane and can readdress at a later date - Brain MRI to further evaluate her symptoms - she was seen in the ED 3 weeks ago with similar symptoms and imaging was not done. Ok to completed this as outpatient at this time. - Continue to monitor BP at home - proceed to nearest ED if high BP, worsening headache / dizziness, one sided weakness, numbness / tingling, or nausea with vomiting. - Encouraged ongoing monthly breast self exams - Regular exercise - Continue with breast rehab for tightness / discomfort related to surgery - She did not have any physical concerns or discomforts related to her breast cancer or treatments at the time of today's visit. - Mammogram no longer indicated - Bone density due every 2 years while on AI (baseline not yet completed) - Follow up with PCP for routine health maintenance - Follow up will be based on workup, but likely ~3 months to further evaluate endocrine therapy toxicity She has been encouraged to call with any additional questions/concerns in the interim. Understanding verbalized. I spent a total of 30 minutes on the date of the service which included preparing to see the patient, [id number] patient care, completing clinical documentation, obtaining and/or reviewing separately obtained history, performing a medically appropriate examination, counseling and educating the patient/family/caregiver, ordering medications, tests, or procedures, and communicating results to the patient/family/caregiver. Shelly Sheridan APRN.RODO CC: Dr. Jaimee Colon Additional intake questions: Has the patient had fever, nausea, vomiting, diarrhea, constipation, fatigue for > 1 week? Yes, nausea daily. Does the patient have a decreased appetite? No Does patient want to see a Load Tester? Yes, MD Notified (yes to any of above refer patient to schedulers for dietitian appointment) ) Does patient have any new or increased numbness or tingling of extremities? No Does patient need any prescription refills? No Does patient have an advanced directive in place? No, Patient referred to [facility] documented in this encounter [facility] 08-20-2024 Note [facility] 08-20-2024 Note [facility] 08-19-2024 Note HNO ID: [id number] Author: ANA CASTILLO ST Service: ? Author Type: Surg Software Quality Automation Engineer Type: Progress Notes Filed: 08/19/2024 15:33 Note Text: DATE OF PHOTOS: 08/19/2024 Body Part: Breasts and Abdomen ST SLAVA August 19, 2024 3:33 PM [facility] 08-19-2024 History of Present illness Narrative DATE OF PHOTOS: 08/19/2024 Body Part: Breasts and Abdomen ST SLAVA August 19, 2024 3:33 PM documented in this encounter [facility] 08-19-2024 History of Present illness Narrative Plastic Surgery Note CC: Post op HPI: Yolande is a 43 year old female s/p 06/16/2024 RIGHT breast skin-sparing mastectomy, ipsilateral axillary sentinel lymph node biopsy; prophylactic LEFT breast total/simple mastectomy Bilateral breast reconstruction with tissue health and fitness instructor placement (Abbvie 133 mV 500 mL) in prepectoral positions with use of matrix support 20x25 cm (500 cm2) on each side of the breast bilaterally. Time Post Op: 9 weeks Bilateral TE Volume: 450 cc NS /500 cc Bilateral TE She had right breast excision of margin by Dr. Taylor on 07/06/24 (drains removed during this surgery) - Surgical Path: right breast IDC, grade-1, 3mm max dimension + DCIS(grade-2), 1(ILC)/2 SLN's, all margins negative for invasive carcinoma but DCIS + at superior margin. Final staging pT1aN0(i+) No plans for chemo or radiation. Follows with Dr. Randall (hem/onc) Reports bilateral breast tightness and increased sensitivity (tingling) to upper pole and below IMF. No fever, chills, redness, or areas of delayed wound healing. Reports new bruising (as of today) to left lateral breast Patient interested in GRETTA reconstruction. Desires C cup size. No previous abdominal surgeries. Taking spironolactone for acne Holding anastrozole at this time due to side effects of headaches and HTN Taking semaglutide weekly ROS: No fevers, chills, new redness, pain, wound drainage or incisional breakdown Objective: BP 140/81 Pulse 108 Temp 36.8 C (98.2 F) (Temporal) LMP 07/19/2024 (Exact Date) SpO2 95% PAST MEDICAL HISTORY Diagnosis Date Acne On spironolactone Anxiety Dysmenorrhea Dyspareunia Hypothyroidism also known nodule Migraines Papanicolaou smear of cervix with low grade squamous intraepithelial lesion (LGSIL) 02/24/2006 PMH - PAST MEDICAL HISTORY OF bipolar, borderline personality disorder PAST SURGICAL HISTORY Procedure Laterality Date PAST SURGICAL HISTORY OF tonsils PAST SURGICAL HISTORY OF D&C 2017 and 2020 Current Outpatient Medications on File Prior to Visit Medication Sig anastrozole (ARIMIDEX) 1 mg tablet Take 1 tablet by mouth once daily. Patient should start on July 14, 2024. FLUoxetine (PROZAC) 40 mg capsule Take 50 mg by mouth once daily. levothyroxine (SYNTHROID) 100 mcg tablet Take 1 tablet on 5 days of the week, skip on 2 days of the week (may be Friday and Friday) SEMAGLUTIDE, WEIGHT LOSS, SUBCUTANEOUS Inject 70 Units subcutaneously one time a week. spironolactone (ALDACTONE) 50 mg tablet cefADROxil (DURICEF) 500 mg capsule Take 500 mg by mouth two times a day. 7 days. As of today, she has 2 more days to go (Patient not taking: Reported on 07/20/2024) cholecalciferol (VITAMIN D3) 5,000 unit tab Take by mouth. eletriptan (RELPAX) 40 mg tablet TAKE 1 TABLET NEEDED FOR MIGRAINE HEADACHE (SEE ADMINISTRATION INSTRUCTIONS) AT THE ONSET OF MIGRAINE HEADACHE (1 IN 24 HOURS) (Patient taking differently: as needed.) No current facility-administered medications on file prior to visit. ALLERGIES Allergen Reactions Penicillins Anaphylaxis PE: A&Ox3, NAD BP 140/81 Pulse 108 Temp 36.8 C (98.2 F) (Temporal) LMP 07/19/2024 (Exact Date) SpO2 95% Abdominal Exam: soft, non-tender, non obese, BS+, non-distended, no abdominal scars. Adequate adipose tissue for breast reconstruction Breasts: Bilateral breasts soft Bilateral breast incisions healing well Bilateral breast asymmetry s/p bilateral mastectomies and TE placement Bilateral breast TE intact, filled with NS No symptoms or signs of infection No evidence of hematoma/seroma Hypoesthesia of bilateral breast skin A/P: (Z85.3) History of breast cancer (primary encounter diagnosis) (Z98.890) S/P breast reconstruction (Z01.818) Encounter for other preprocedural examination (Z98.890) History of breast reconstruction (Z90.13) History of bilateral mastectomy (R20.1) Hypoesthesia of skin S/p bilateral breast reconstruction with placement of TE and matrix support Expected post operative course Doing well The patient is a candidate for delayed Bilateral breast reconstruction with GRETTA. - discussed that if patient would like to have a larger breast size, that would likely not be achievable with GRETTA and therefore, she would need to consider breast implants. - will order CTA pelvis to assess vessels and r/o hernias - will submit to insurance for removal of bilateral TE, reconstruction with bilateral GRETTA flaps, and nerve repair Appropriate TE fill volume at this time. Will not fill any further today. An extensive discussion was undertaken with the patient detailing the risks, benefits and alternatives to GRETTA. Patient to follow up with PCP regarding HTN. Photos obtained today of breasts and abdomen. Approximate tissue health and fitness instructor size or implant size: TBD Matrix Support/ADM Size: TBD Nerve Graft Size: TBD Follow up after insurance approval and completion of Pelvic CTA The patient is seen and examined by Dr. Messina and the following reflects his/her service. Scribed by Valentina Flood RN I agree with the Chief Complaint, ROS, and Past Histories independently gathered by the clinical application support engineer and the remaining scribed note accurately describes my personal service to the patient. patient's condition reviewed and examined plan of care and options of management, complexity, risk benefit limitation potential complication, success /failure of management, expected result and recovery discussed I spent a total of 20 minutes on the date of service which included preparing to see the patient, [id number] patient care, completing clinical documentation, obtaining & reviewing separately an obtained history, performing a medically appropriate examination, counseling & educating the patient/family/caregiver, ordering medications, tests, or procedures, communicating with other healthcare providers, independently interpreting the results, communicating results to the patient care team, and continued patient care coordination. This is included in the documentation noted above. Isiah Messina MD documented in this encounter [facility] 08-19-2024 Note [facility] 08-19-2024 Telephone encounter Note Called and confirmed appointment with patient. Migraines have not improved. Holding AI now for 2 weeks and she feels they kind of flared up more. She will discuss with Shelly brown tomorrow. Patient appreciative of call. Mary Campa RN August 19, 2024 1:36 PM [facility] Work Phone: 08-19-2024 Miscellaneous Notes Called and confirmed appointment with patient. Migraines have not improved. Holding AI now for 2 weeks and she feels they kind of flared up more. She will discuss with Shelly brown tomorrow. Patient appreciative of call. 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 Stated appointment for 08/20 at 7:30 in person works for her. Would like a call back to confirm. Patient has been identified by name and birthdate. 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 Stated appointment for 08/20 at 7:30 in person works for her. Would like a call back to confirm. Patient has been identified by name and birthdate. Requesting response back: [phone] (home) [phone] (cell) Nila Trujillo August 19, 2024 [facility] 08-16-2024 History of Present illness Narrative Program_ID:[id number] Access Code: [email or web address] URL: [email or web address] Date: 08-16-2024 Prepared By: Kimberly Hidalgo Program Notes Exercises - Seated Scapular Retraction - 3-4 x daily - 7 x weekly - 1 sets - 10 reps - Supine Diaphragmatic Breathing - 2-3 x daily - 7 x weekly - 1 sets - 5 reps - Supine Shoulder Flexion AAROM with Hands Clasped - 2-3 x daily - 7 x weekly - 1 sets - 10 reps - Hands clasped to forehead - 2-3 x daily - 7 x weekly - 1 sets - 10 reps - Seated Elbow Flexion and Extension AROM - 3 x daily - 7 x weekly - 1 sets - 10 reps - Wrist flexion and extension with neutral forearm and hand relaxed - 3 x daily - 7 x weekly - 1 sets - 10 reps - Composite fist with extension - 4-6 x daily - 7 x weekly - 1 sets - 10 reps Patient Education - What Is Lymphedema? - Lifestyle Choices for Lymphedema - Early Detection for Lymphedema Images from the original note were not included. Episode Visit Count: 1 Therapist That Will Accept/Oversee The Plan Of Care: CONSTANTINO Burton Start of Care Date: 08/16/24 Onset Date: 06/16/24 Patient Identified by Name and Date of : Yes [facility] OCCUPATIONAL THERAPY EVALUATION PLAN OF CARE: Assessment: Yolande Gomes presents with the chief complaints of BUQ tightness and tenderness that interferes with reaching overhead, lifting, physical activities, heavy exertion, working, sleeping, use hand with arm at shoulder level, cleaning, reaching behind back (drying and curling her hair, mopping and vaccuming) . The patient presents with impairments in ADL's, edema, overall function, range of motion, sensation, pain, scar adherence, tissue tightness and tissue tenderness. Patient did not complete the PROMIS (Patient Reported Outcome Measures Information System). Prognosis for therapy is Good due to: current objective clinical presentation, good overall health status, good support system/ coping skills. The patient will benefit from skilled therapy services to meet the goals established for this plan of care as noted below. Goals for Episode of Care: established 08/16/24 Patient able to verbalize skin care and lymphedema risk reductions Patient will report a good understanding of diagnosis and OT recommendations for progression of program Patient will demonstrate proper positioning of limb Patient/family independent with home exercise program including self MLD, desensitization, skincare guidelines, scar massage, ROM exercises, strengthening exercises, cardiovascular exercise, and garment instructions Patient will increase active ROM of bilateral to 155-160 degrees of flexion and abduction to allow patient to achieve neutral postural alignment, for improved performance of ADLs. Patient will decrease pain to: 0/10 at rest and 2/10 or less with activity Patient will have supple scar with no tenderness to palpation and demonstrate and understanding of scar management Patient/family independent with donning/doffing compression garment and proper wearing schedule and care of garment as needed Patient will demonstrate understanding of sensory re-education/ desensitization home program Patient will have increased function and be able to reach overhead with the involved UEs Patient Goals: To get back to where I was before my diagnosis physically. Good quality of life. Do my job. Time Frame for Goals and Treatment : 02/12/25 Planned Interventions, Frequency, and Duration: Current Frequency: 1x/week Duration: 12 weeks Total Number of Visits Planned: 12 Planned Treatment Interventions: Therapeutic exercise (46482), Manual therapy (98957), Self-assisted management (68827), Patient/Family/Caregiver Education PLAN FOR NEXT VISIT: Breast Rehab BUQs - STM and MFR. Progress stretches. Add scar massage. Patient demonstrates good understanding of plan of care and treatment. The above goals and plan of care were discussed and agreed upon by patient/family. SUBJECTIVE: Functional Limitations: reaching overhead, lifting, physical activities, heavy exertion, working, sleeping, use hand with arm at shoulder level, cleaning, reaching behind back (drying and curling her hair, mopping and vaccuming) Prior Level of Function: Independent without limitations Patient Goals: To get back to where I was before my diagnosis physically. Good quality of life. Do my job. 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 Home Environment Patient Lives With: Spouse Assistance Available: PRN Home Type: [place] (with basement) Laundry: in the basement Pain: Pain Pain Level: (3-4/10) Pain Location: Breast - Left, Breast - Right, Axilla - Right, Shoulder - Right, Shoulder - Left, Upper Arm - Right, Upper Arm - Left, Chest - Right, Chest - Left Description: Tenderness, Tightness, Sharp (sensitivity, zingers) Frequency: Continuous, Intermittent Detailed Pain Score: Yes Worst Pain Level: (5-6/10) Best Pain Level: (3-4/10) Post Treatment Pain Post Treatment Pain Level: (3-4/10, but reports tissues feeling a little looser) PROMIS Scales 11/28/2023 08/08/2023 Higher is Better Phys Func - T Score 36 (moderate dysfunction) Phys Func - Percentile 8 Cognitve Function - T Score 40 (moderate dysfunction) 27 (severe dysfunction) 11/28/2023 08/08/2023 Lower is Better Pain Interference - T Score 72 (severe) 74 (severe) Pain Interference - Percentile 1 1 T-scores: mean of general population = 50. 5 points is clinically meaningfully difference Percentiles provide an indication of how the patient's score ranks in relation to the general population. Higher percentile rankings indicate better function/quality of life. 50th percentile is the average of the general population and indicates half of respondents had a worse score. OBJECTIVE MEASURES WITH LEVEL OF FUNCTION: Posture / Alignment Posture: Rounded shoulders Sensation - Upper Extremity UE Light Touch Sensation: (Numbness along both breasts) Lymphedema Presents with: Functional Limitations, Pain, Decreased knowledge of lymphedema management, Comment, Swelling Comment: Sensitivity, Tissue tightness, Tissue tenderness, Myofasical restrictions, Decreased range of motion, Scar adherence Lymphedema is worse: At end of day, Dependent positions Lymphedema is better: After elevation, In AM Lymphedema Contributing Factors: Lymph Node Removal, Dependent Position Lymphedema Contributing Factors Comments: 2 Relevant Medications: (Refer to medical chart) Relative Contra-indications to Compression: : None Relative Contra-indications to Manual Lymph Drainage: : None Relative Contra-indications to Neck Manual Lymph Drainage: : Hyper/hypothyroidism Relative Contra-indications for Abdominal Sequences: None Skin: Color Color Comments:: Normal color LUQ; pinkish at mid to distal end of right scar site with absorable suture surfacing Upper Extremity Circumferential Measurements R Thumb (proximal phalanx) (cm): 6.4 cm R Index Finger (proximal phalanx) (cm): 6.4 cm R Middle Finger (proximal phalanx) (cm): 6.2 cm R Ring Finger (proximal phalanx) (cm): 5.9 cm R Small Finger (proximal phalanx) (cm): 5.3 cm R DPC (cm): 18.9 cm R Distal Wrist Crease (DWC) (cm): 15.4 cm R 4 cm above wrist (cm): 18.7 cm R 8 cm above wrist (cm): 22.5 cm R 12 cm above wrist (cm): 24.8 cm R 16 cm above wrist (cm): 26.4 cm R 20 cm above wrist (cm): 26.5 cm R 24 cm above wrist (cm): 27.6 cm R 28 cm above wrist (cm): 30.1 cm R 32 cm above wrist (cm): 32.8 cm R 36 cm above wrist (cm): 37.2 cm R 40 cm above wrist (cm): 39.5 cm L Thumb (proximal phalanx) (cm): 6 cm L Index Finger (proximal phalanx) (cm): 6.3 cm L Middle Finger (proximal phalanx) (cm): 6.1 cm L Ring Finger (proximal phalanx) (cm): 5.9 cm L Small Finger (proximal phalanx) (cm): 5.3 cm L DPC (cm): 18.9 cm L Distal Wrist Crease (DWC) (cm): 15.2 cm L 4 cm above wrist (cm): 17.3 cm L 8 cm above wrist (cm): 21 cm L 12 cm above wrist (cm): 24 cm L 16 cm above wrist (cm): 25.8 cm L 20 cm above wrist (cm): 26.2 cm L 24 cm above wrist (cm): 26.7 cm L 28 cm above wrist (cm): 30.8 cm L 32 cm above wrist (cm): 33.7 cm L 36 cm above wrist (cm): 36.8 cm L 40 cm above wrist (cm): 38.6 cm Affected Arm : Bilateral, Right Arm Larger Calculate Volume : Yes R Upper Extremity Volume: 2510.91 L Upper Extremity Volume: 2442.31 Difference in Volume: 68.6 Difference in % : 2.73 UE AROM R Shoulder Flex: 128 Degrees R Shoulder ABduction: 100 Degrees R Shoulder Internal Rotation (Functional): Hand to waist level R Shoulder External Rotation: 60 Degrees (with arm adducted to her side) R Shoulder External Rotation (Functional): Hand to the front of her head with arm in scaption L Shoulder Flex: 142 Degrees L Shoulder ABduction: 105 Degrees L Shoulder Internal Rotation (Functional): Hand to waist level L Shoulder External Rotation: 64 Degrees (with arm adducted to her side) L Shoulder External Rotation (Functional): Hand to the front of her head with arm in scaption Education: Education Learning Preferences: Demonstration, Explanation, Performance, Printed Materials Barriers: None Learning/educational needs: Home exercise program, Plan of Care, Lifestyle changes, Lymphedema Program Education Provided: Yes, see treatment interventions for education provided Education Provided To: Patient Education Mode/Type: Demonstration, Explanation/Discussion, Literature/Printed Materials, Performance, Teach Back Response to Education/Teach Back: States/Identifies, Return Demonstration, Requires Review/Additional Education TREATMENT: OT Treatment Interventions : Therapeutic Exercise, Self-Halfway Management, Manual Therapy Evaluation Therapeutic Exercise: 1: Educated patient on exercises listed below via verbal instruction and demonstration. Educated patient on the benefits of of going to a gentle stretch and holding for tissue elongation. Had patient complete while in the clinic to ensure understanding and proper technique. Handouts provided via [employer]. Exercises - Seated Scapular Retraction - 3-4 x daily - 7 x weekly - 1 sets - 10 reps - 5-10 hold - Supine Diaphragmatic Breathing - 2-3 x daily - 7 x weekly - 1 sets - 5 reps - Supine Shoulder Flexion AAROM with Hands Clasped - 2-3 x daily - 7 x weekly - 1 sets - 10 reps - 10 hold - Hands clasped to forehead - 2-3 x daily - 7 x weekly - 1 sets - 10 reps - 10 hold - Seated Elbow Flexion and Extension AROM - 3 x daily - 7 x weekly - 1 sets - 10 reps - 3-5 hold - Wrist flexion and extension with neutral forearm and hand relaxed - 3 x daily - 7 x weekly - 1 sets - 10 reps - 3-5 hold - Composite fist with extension - 4-6 x daily - 7 x weekly - 1 sets - 10 reps - 3-5 hold Skilled Intervention: Patient was educated in proper exercise technique and purpose for exercises. Skilled judgment was used in selection of appropriate interventions. Provided written instruction for home exercise program to facilitate proper performance and compliance. Correct performance of therapeutic exercises was facilitated with verbal, visual, and tactile cuing. Educated patient on rationale for performing exercises in regards to increase ease of ADL, increase lymphatic fluid dynamics, and ROM and function . Patient education as noted. Manual Therapy: 1: SENSITIVE EXAMINATION CONSENT: The sensitive examination was discussed with the Patient or Patient's Authorized Restaurant Kitchen And Service Manager. As applicable, any other physician, advance practice provider, medical student, or other health professional student that will be observing or involved in the sensitive examination for educational or training purposes was discussed with the Patient or Authorized Restaurant Kitchen And Service Manager. The Patient or Authorized Restaurant Kitchen And Service Manager has agreed to proceed with the sensitive examination. 2: Gentle STM to BUQ with focus on pecs, axilla and flank. 3: Gentle MFR to BUQ with focus to axilla and pecs. Skilled Intervention: Manual skills to improve joint mobility, ROM, and decrease pain. Utilized anatomy knowledge of the therapist, and assessment of patient's response to intervention. Self-Halfway Management: 1: Educated patient on OT plan of care and presentation. 2: Educated patient on the importance of meticulous skin care and skin inspections. Therapist completed skin inspection. 3: Educated patient on lympathic anatomy and pathway. Educated patient on signs and symptoms of lymphedema, at risk precautions and prevention methods. Handout provided via [employer]. 4: BUE circumferential measurements taken and data discussed with patient. 5: Discussed prophylactic sleeve (air travel, with exercise or whole arm repetitive tasks) due to lymph node removal. Plan to monitor for now. 6: Educated patient to focus aerobic activity 7: Patient asking about work as she was informed by her surgeon she doesn't have any restrictions. States she started back, but working less and taking less involved clients. Advised patient if able to, to give herself a couple more weeks off to foucs on stretching. Then ease back with shortedr days and breaks in between her clients. Skilled Intervention: Skilled judgment in the selection of proper modification for activity of daily living/home management based on clinical presentation, deficits, and needs. Provided written instruction for activities of daily living techniques to facilitate proper performance and compliance. Patient education as noted above. Home exercise program: Access Code: [email or web address] URL: [email or web address] Date: 08/16/2024 Prepared by: Kimberly Hidalgo Exercises - Seated Scapular Retraction - 3-4 x daily - 7 x weekly - 1 sets - 10 reps - 5-10 hold - Supine Diaphragmatic Breathing - 2-3 x daily - 7 x weekly - 1 sets - 5 reps - Supine Shoulder Flexion AAROM with Hands Clasped - 2-3 x daily - 7 x weekly - 1 sets - 10 reps - 10 hold - Hands clasped to forehead - 2-3 x daily - 7 x weekly - 1 sets - 10 reps - 10 hold - Seated Elbow Flexion and Extension AROM - 3 x daily - 7 x weekly - 1 sets - 10 reps - 3-5 hold - Wrist flexion and extension with neutral forearm and hand relaxed - 3 x daily - 7 x weekly - 1 sets - 10 reps - 3-5 hold - Composite fist with extension - 4-6 x daily - 7 x weekly - 1 sets - 10 reps - 3-5 hold Patient Education - What Is Lymphedema? - Lifestyle Choices for Lymphedema - Early Detection for Lymphedema Billing * Evaluation Moderate Complexity: 1 Unit Therapeutic Exercise Treatment Minutes: 22 Manual Therapy Treatment Minutes: 15 Self-Care/Home Management Treatment Minutes: 23 Skilled Treatment Time Minutes (timed and untimed codes): 90 Total Session Time (minutes): 95 Session Start Time : 1019 Session Stop Time : 1154 CONSTANTINO Burton documented in this encounter [facility] 08-16-2024 Note [facility] 08-13-2024 Note [facility] 08-13-2024 History of Present illness Narrative Yolande Gomes is a 43-year-old female with a history of ER/DC-positive, HER2-negative breast cancer presenting for consultation regarding potential oophorectomy and hysterectomy. HPI: Breast Cancer History - Underwent a double mastectomy in May. - Pathology: Estrogen and progesterone receptor-positive, HER2-negative. - Started on Lupron injections in June. - Began taking anastrozole (Arimidex) two weeks post-Lupron injection. Not on tamoxifen given interaction with Prozac. - Oncologist anticipates 5-10 years of treatment with Lupron and anastrozole - Inquired about a complete hysterectomy and oophorectomy with her oncologist, who is supportive if a surgeon agrees. - Genetic testing: BRCA-negative, with an uncertain variant that was positive. -Interested in what surgeries can help decrease side effects of BC medications Menstrual Irregularities - Currently menstruating; last period around July 18-. - History of heavy and painful bleeding starting in her teens, leading to early initiation of control at age 12. - Experienced irregular periods in her late 20s to 30s. 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 May repeat dose after 2 hours if needed. Maximum daily dose is 80 mg per day. cefADROxil (DURICEF) 500 mg capsule Take 500 mg by mouth two times a day. 7 days. As of today, she has 2 more days to go cholecalciferol (VITAMIN D3) 5,000 unit tab Take by mouth. FLUoxetine (PROZAC) 40 mg capsule Take 50 mg by mouth once daily. levothyroxine (SYNTHROID) 100 mcg tablet Take 1 tablet on 5 days of the week, skip on 2 days of the week (may be Friday and Friday) SEMAGLUTIDE, WEIGHT LOSS, SUBCUTANEOUS Inject 70 Units subcutaneously one time a week. spironolactone (ALDACTONE) 50 mg tablet anastrozole (ARIMIDEX) 1 mg tablet Take 1 tablet by mouth once daily. Patient should start on July 14, 2024. (Patient not taking: Reported on 08/13/2024) No current facility-administered medications for this visit. Allergies As of Date: 08/13/2024 Allergen Noted Reaction PENICILLINS 07/09/2006 Anaphylaxis Fully Assessed 08/13/2024 REVIEW OF SYSTEMS Abdomen: No bloating, early satiety, indigestion, or increased flatulence. No abdominal pain, nausea, vomiting, diarrhea, or constipation. Bladder: No dysuria, gross hematuria, urinary frequency, urinary urgency, or incontinence. Allergies and current medication updated:Yes SENSITIVE EXAM: The sensitive examination was discussed with the Patient or Patient's Authorized Restaurant Kitchen And Service Manager. As applicable, any other physician, advance practice provider, medical student, or other health professional student that will be observing or involved in the sensitive examination for educational or training purposes was discussed with the Patient or Authorized Restaurant Kitchen And Service Manager. The Patient or Authorized Restaurant Kitchen And Service Manager has agreed to proceed with the sensitive examination. (Sensitive examination includes inspection and/or palpation of the breasts, pelvis, prostate and anorectal regions). Electricity Trading Analyst: Clark GARDNER EXAM: BP 141/91 Ht 5' 3 (1.60m) Wt 167 lb 5.3 oz (75.9kg) LMP 07/19/2024 BMI 29.65 kg/(m^2). GENERAL: pleasant, female in no apparent distress HEENT: Normocephalic, atraumatic, and mucus membranes moist NECK: Supple and full range of motion DERMATOLOGY: Normal, without lesions, non-icteric, and non-hirsute BREAST: deferred CHEST: Normal inspiratory effort ABDOMEN: soft, non-tender, and no masses PELVIC: external genitalia normal, normal Bartholin's glands, urethra, [place]'s glands, no vulvar lesions, no cervical lesions, good vaginal support, physiologic discharge present, normal appearing perineal body and perianal region BIMANUAL: uterus normal size, shape and consistency, no adnexal masses, and non-tender NEURO: alert and oriented x3,exam grossly non-focal EXTREMITIES: normal ASSESSMENT AND PLAN: Assessment & Plan Malignant neoplasm of breast, stage 1, estrogen receptor positive, unspecified laterality (HCC) Orders: CONSULT TO GYNECOLOGY 1. Malignant neoplasm of breast, stage 1, estrogen receptor positive, unspecified laterality (HCC) (C50.919) - Discussed potential oophorectomy; patient has negative BRCA1 and BRCA2 testing so BSO is not recommended for ovarian cancer risk reduction. Discussed at length that oophorectomy would induce an early menopause that could cause many of the symptoms her current Lupron/anastrazole medications are causing. Given that patient goal is to minimize side effects of medications, unsure if this would be beneficial. - Discussed [facility] effects of CV and bone disease morbidity / mortality with early BSO, as well as atrophic changes that can occur with surgical menopause - Will refer to [employer] for second opinion regarding BSO - Patient understands and agrees with the plan. 2. Encounter for screening for malignant neoplasm of cervix (Z12.4) - Last Pap on record 2007 - Pap with HPV co-testing today Aysha Roger MD documented in this encounter [facility] 08-05-2024 Discharge summary [facility] 07-29-2024 Note HNO ID: [id number] Author: ANA CASTILLO ST Service: ? Author Type: Surg Software Quality Automation Engineer Type: Progress Notes Filed: 07/29/2024 16:31 Note Text: DATE OF PHOTOS: 07/29/2024 Body Part: Breasts ST SLAVA July 29, 2024 4:30 PM [facility] 07-29-2024 History of Present illness Narrative DATE OF PHOTOS: 07/29/2024 Body Part: Breasts ST SLAVA July 29, 2024 4:30 PM documented in this encounter [facility] 07-29-2024 Note [facility] 07-29-2024 History of Present illness Narrative Plastic Surgery Note CC: Post op HPI: Yolande is a 43 year old female s/p 06/16/2024 Bilateral breast reconstruction with tissue health and fitness instructor placement (Abbvie 133 mV 500 mL) in prepectoral positions with use of matrix support 20x25 cm (500 cm2) on each side of the breast bilaterally. Time Post Op: 6 weeks Bilateral TE Volume: 400 cc NS /500 cc Bilateral TE Here today for tissue expansion 50 cc seroma drained from bilateral breast at the time of expansion 07/15/2024 She had right breast excision of margin by Dr. Taylor on 07/06/24 (drains removed during this surgery) ROS: No fevers, chills, new redness, pain, wound drainage or incisional breakdown Objective: BP 115/91 (BP Site: Left Arm, BP Position: Sitting) Pulse 93 Temp 36.7 C (98.1 F) (Temporal) Resp 16 Ht 160 cm (5' 3) Wt 76.2 kg (168 lb 1.6 oz) LMP 06/22/2024 (Exact Date) SpO2 98% BMI 29.78 kg/m PAST MEDICAL HISTORY Diagnosis Date Acne On spironolactone Anxiety Dysmenorrhea Dyspareunia Hypothyroidism also known nodule Migraines Papanicolaou smear of cervix with low grade squamous intraepithelial lesion (LGSIL) 02/24/2006 PMH - PAST MEDICAL HISTORY OF bipolar, borderline personality disorder PAST SURGICAL HISTORY Procedure Laterality Date PAST SURGICAL HISTORY OF tonsils PAST SURGICAL HISTORY OF D&C 2017 and 2020 Current Outpatient Medications on File Prior to Visit Medication Sig anastrozole (ARIMIDEX) 1 mg tablet Take 1 tablet by mouth once daily. Patient should start on July 14, 2024. FLUoxetine (PROZAC) 40 mg capsule Take 50 mg by mouth once daily. levothyroxine (SYNTHROID) 100 mcg tablet Take 1 tablet on 5 days of the week, skip on 2 days of the week (may be Friday and Friday) SEMAGLUTIDE, WEIGHT LOSS, SUBCUTANEOUS Inject 70 Units subcutaneously one time a week. spironolactone (ALDACTONE) 50 mg tablet cefADROxil (DURICEF) 500 mg capsule Take 500 mg by mouth two times a day. 7 days. As of today, she has 2 more days to go (Patient not taking: Reported on 07/20/2024) cholecalciferol (VITAMIN D3) 5,000 unit tab Take by mouth. eletriptan (RELPAX) 40 mg tablet TAKE 1 TABLET NEEDED FOR MIGRAINE HEADACHE (SEE ADMINISTRATION INSTRUCTIONS) AT THE ONSET OF MIGRAINE HEADACHE (1 IN 24 HOURS) (Patient taking differently: as needed.) No current facility-administered medications on file prior to visit. ALLERGIES Allergen Reactions Penicillins Anaphylaxis PE: A&Ox3, NAD BP 115/91 (BP Site: Left Arm, BP Position: Sitting) Pulse 93 Temp 36.7 C (98.1 F) (Temporal) Resp 16 Ht 160 cm (5' 3) Wt 76.2 kg (168 lb 1.6 oz) LMP 06/22/2024 (Exact Date) SpO2 98% BMI 29.78 kg/m The wounds are dry and intact with [...] the procedure well. Current total 400 cc NS /500 cc Bilateral TE Filled with 50 cc NS Bilateral TE New total: 450 cc NS /500 cc Bilateral TE A/P: S/p bilateral breast reconstruction with placement of TE and matrix support Expected post operative course Doing well -Expansion as above -activity restrictions discussed, okay to resume activity/exercise [...] Aquaphor/Eucerin/Cerave -okay to sleep on your sides Follow up in 1 week. Olga Nieves PA-C 07/29/2024 documented in this encounter [facility] 07-20-2024 History of Present illness Narrative Plastic Surgery Note CC: Post op HPI: Yolande is a 43 year old female s/p 06/16/2024 Bilateral breast reconstruction with tissue health and fitness instructor placement (Abbvie 133 mV 500 mL) in prepectoral positions with use of matrix support 20x25 cm (500 cm2) on each side of the breast bilaterally. Time Post Op: 6 weeks Bilateral TE Volume: 350 cc NS /500 cc Bilateral TE Here today for tissue expansion 50 cc seroma drained from bilateral breast at the time of expansion 07/15/2024 She had right breast excision of margin by Dr. Taylor on 07/06/24 (drains removed during this surgery) Patient reports tightness and tenderness bilateral breasts, burning sensation is improving Pain: well controlled - Taking tylenol, advil, and oxycodone ROS: No fevers, chills, new redness, pain, wound drainage or incisional breakdown Objective: BP 115/91 (BP Site: Left Arm, BP Position: Sitting) Pulse 93 Temp 36.7 C (98.1 F) (Temporal) Resp 16 Ht 160 cm (5' 3) Wt 76.2 kg (168 lb 1.6 oz) LMP 06/22/2024 (Exact Date) SpO2 98% BMI 29.78 kg/m PAST MEDICAL HISTORY Diagnosis Date Acne On spironolactone Anxiety Dysmenorrhea Dyspareunia Hypothyroidism also known nodule Migraines Papanicolaou smear of cervix with low grade squamous intraepithelial lesion (LGSIL) 02/24/2006 PMH - PAST MEDICAL HISTORY OF bipolar, borderline personality disorder PAST SURGICAL HISTORY Procedure Laterality Date PAST SURGICAL HISTORY OF tonsils PAST SURGICAL HISTORY OF D&C 2017 and 2020 Current Outpatient Medications on File Prior to Visit Medication Sig anastrozole (ARIMIDEX) 1 mg tablet Take 1 tablet by mouth once daily. Patient should start on July 14, 2024. FLUoxetine (PROZAC) 40 mg capsule Take 50 mg by mouth once daily. levothyroxine (SYNTHROID) 100 mcg tablet Take 1 tablet on 5 days of the week, skip on 2 days of the week (may be Friday and Friday) SEMAGLUTIDE, WEIGHT LOSS, SUBCUTANEOUS Inject 70 Units subcutaneously one time a week. spironolactone (ALDACTONE) 50 mg tablet cefADROxil (DURICEF) 500 mg capsule Take 500 mg by mouth two times a day. 7 days. As of today, she has 2 more days to go (Patient not taking: Reported on 07/20/2024) cholecalciferol (VITAMIN D3) 5,000 unit tab Take by mouth. eletriptan (RELPAX) 40 mg tablet TAKE 1 TABLET NEEDED FOR MIGRAINE HEADACHE (SEE ADMINISTRATION INSTRUCTIONS) AT THE ONSET OF MIGRAINE HEADACHE (1 IN 24 HOURS) (Patient taking differently: as needed.) No current facility-administered medications on file prior to visit. ALLERGIES Allergen Reactions Penicillins Anaphylaxis PE: A&Ox3, NAD BP 115/91 (BP Site: Left Arm, BP Position: Sitting) Pulse 93 Temp 36.7 C (98.1 F) (Temporal) Resp 16 Ht 160 cm (5' 3) Wt 76.2 kg (168 lb 1.6 oz) LMP 06/22/2024 (Exact Date) SpO2 98% BMI 29.78 kg/m The wounds are dry and intact with [...] Patient tolerated the procedure well. Current total 300 cc NS /500 cc Bilateral TE Filled with 100 cc NS Bilateral TE New total: 400 cc NS /500 cc Bilateral TE Aspiration of Seroma Procedure Note Location: Bilateral breast Seroma Safety check performed The patient agreed on the procedure to be done R/B/A discussed with the patient Bilateral breast prepped with chloraprep and sterilely draped A 21 gauge angiocath/butterfly needle was inserted into bilateral breast seroma yielding minimal A dry sterile dressing was applied The [...] Aquaphor/Eucerin/Cerave -okay to sleep on your sides Follow up in 1 week. Olga Nieves PA-C 07/20/2024 documented in this encounter [facility] 07-20-2024 Note [facility] 07-16-2024 Note [facility] 07-14-2024 Note [facility] 07-14-2024 Note [facility] 07-14-2024 Note [facility] 07-06-2024 Note [facility] 07-05-2024 Note [facility] 07-01-2024 Note [facility] 06-30-2024 History of Present illness Narrative Called [...] proline sutures) Consent to be sent via Indexing FISH for HER2 is pending Notified Mayuri [...] (not separately reported). documented in this encounter [facility] 06-30-2024 Note HNO ID: [id number] Author: PRADEEP TAYLOR MD Service: ? Author [...] proline sutures) Consent to be sent via Indexing FISH for HER2 is pending Notified Mayuri [...] patient/family/caregiver, and care coordination (not separately reported). [facility] 06-27-2024 Note [facility] 06-27-2024 History of Present illness Narrative Radiation [...] Paternal Grandfather Anesthesia Problems No Family History CONDUCTOR ORCHESTRA HISTORY: OB History Gravida0 Para0 Term0 Preterm0 AB0 Living0 SAB0 IAB0 Ectopic0 Multiple0 Live Births0 Menarche age: 10 Menopausal status: pre-menopausal Social History Tobacco Use Smoking status: Never Smokeless tobacco: Former Types: Chew Quit date: 2009 Tobacco comments: For 3 years. Quit in 2009 Substance Use Topics Alcohol use: Yes Comment: monthly/social 2-3 drink mixed drink Drug use: No Occupation: [employer] Residence: [place] REVIEW OF SYSTEMS: GENERAL: feeling well without [...] discussed with the patient or authorized customer development representative. The patient or authorized customer development representative has agreed to proceed with the [...] by: Nnamdi Fairbanks MD cc: Isabela Olivera [address] [place] [address] Pradeep Taylor [address] [facility] [address] documented in this encounter [facility] 06-24-2024 History of Present illness Narrative Plastic Surgery Note CC: Post op HPI: Yolande is a 43 year old female s/p 06/16/2024 Bilateral breast reconstruction with tissue health and fitness instructor placement (Abbvie 133 mV 500 mL) in [...] questions or concerns during business hours call [phone] or after hours (after 5 pm or on the weekend) call [phone] and ask for the plastic surgery resident / fellow regional planner for further instructions. If you have increasing [...] Nieves PA-C 06/24/2024 documented in this encounter [facility] 06-24-2024 Note [facility] 06-24-2024 Telephone encounter Note Patient called confused about pathology and need for additional surgery. Discussed with LOUIS Rizzo and called patient back. Patient states understanding. Will discuss with Dr Taylor on 06/28. Natty Jade RN June 24, 2024 12:43 PM [facility] Work Phone: 06-24-2024 Miscellaneous Notes Patient called confused about pathology and need for additional surgery. Discussed with LOUIS Rizzo and called patient back. Patient states understanding. Will discuss with Dr Taylor on 06/28. Natty Jade RN June 24, 2024 12:43 PM documented in this encounter [facility] 06-23-2024 Miscellaneous Notes On 06/23 I Called [...] Breast Surgical Oncology documented in this encounter [facility] 06-23-2024 Telephone encounter Note On 06/23 I [...] the plan. SUSANNA Fuentes Breast Surgical Oncology [facility] Work Phone: 06-23-2024 History of Present illness Narrative Images from the original note were not included. [facility] [place] Department of Breast Surgical Oncology [facility] POST OPERATIVE FOLLOW-UP SERVICE DATE: 06/23/24 SURGERY DATE: 06/16/2024 POSTOPERATIVE VISIT #1 SUBJECTIVE: Yolande Gomes, 43 year old year old female presents today for her first post operative appointment status post Right Breast Mastectomy, Right Axillary [place] lymph node biopsy, Left Breast prophylactic Mastectomy with Dr. Taylor in combination with Dr. Messina for bilateral tissue health and fitness instructor placement. She is overall doing well postoperatively. 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 Test Result Released: No (scheduled for 06/27/2024 1:47 PM) 0 Result Notes Component FINAL DIAGNOSIS A. Right breast, mastectomy: - Invasive ductal carcinoma, North grade I, measuring 3 mm in greatest [...] adipose tissue: - Skin with intradermal nevus. 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 Test Result Released: No 0 Result Notes Component ER status Positive (greater than 10%) ER % staining 95 Estrogen Receptor (Staining Intensity) Strong Estrogen Receptor Internal Control Present and Stained as Expected Estrogen Receptor External Control Present and Stained as Expected DC status Positive (greater than or equal to 1%) DC % staining 99 Progesterone Receptor (Staining Intensity) Strong Progesterone Receptor Internal Control Present and Stained as Expected Progesterone Receptor External Control Present and Stained as Expected HER2 IHC Status Equivocal for HER2 Overexpression HER2 IHC Score 2+ Uniform Intense Complete Membrane Staining <1 Tumor Type Primary Invasive Breast Carcinoma Breast Tumor Grade Grade 1 [facility] The sensitive examination was discussed with the Patient or Patient's Authorized Restaurant Kitchen And Service Manager. As applicable, any other physician, advance practice provider, medical student, or other health professional student that will be observing or involved in the sensitive examination for educational or training purposes was discussed with the Patient or Authorized Restaurant Kitchen And Service Manager. The Patient or Authorized Restaurant Kitchen And Service Manager has agreed to proceed with the sensitive [...] status post Right Breast Mastectomy, Right Axillary [place] lymph node biopsy, Left Breast prophylactic Mastectomy with Dr. Taylor in combination with Dr. Messina for bilateral tissue health and fitness instructor placement. Her final pathology revealed a 3mm right breast IDC with isolated tumor cells in one 1/2 lymph node, grade 1, ER+, DC+, HER2 equivocal, FISH pending. We reviewed these [...] agreement with the plan. Kary Rizzo APRN-RODO, CRLINDAA Breast Surgical Oncology Call Physician If: [...] tolerate diet/fluid intake documented in this encounter [facility] 06-23-2024 Note [facility] 06-16-2024 Note [facility] 06-15-2024 History of Present illness Narrative RADIOLOGY [...] PATIENT PRESENTS WITH AN IMPLANTABLE OR ATTACHED ROLLING ATTENDANT: No CREATININE: Creatinine Date Value Ref Range [...] 1:24PM PATIENT DISCHARGED TO: Ambulatory patient, left MI department area. Is this a therapy: No A Diagnostic radioactive procedure has taken place, with no further precautions necessary other than routine body substance precautions. More information regarding radiation safety can be found using this link: [email or web address] SIGNATURE: RT Klaus(R) PATIENT NAME: Yolande Gomes DATE: June 15, 2024 TIME: 1:37 PM PAGER/CONTACT #: documented in this encounter [facility] 06-15-2024 Note [facility] 06-15-2024 History and physical note Images from the original note were not included. [facility] HISTORY AND PHYSICAL EXAMINATION SERVICE DATE: 06/15/2024 SERVICE TIME: 10:44 AM PRIMARY CARE PHYSICIAN: Isabela Olivera APRN.MANAGER HUMAN RESOURCES Assessment Patient has the following medical conditions [...] additional comments: *PACC/TCI - anesthesia choice. Beta Kathleen Monitoring Plan Post Procedure Analgesic Plan Prepared [...] (Right) BIOPSY NODE SENTINEL AXILLARY (Right) TISSUE DIRECTOR TELEVISION PLACEMENT IN BREAST RECONSTRUCTION BILATERAL (Bilateral) IMPLANTATION [...] Dr Taylor Right skin-sparing mastectomy with R [place] Lymph node biopsy, Left prophylactic skin-sparing mastectomy as next step in treatment the above procedure is recommended. Patient is agreeable and would like to proceed. REVIEW OF SYSTEMS: General: No weight loss, malaise or fevers. Neurological: Positive for: headaches. Negative for: cerebral palsy, SENIOR ETL DEVELOPER tumor, delirium, dementia, hemiplegia, impaired sensorium, multiple sclerosis, paraplegia, Parkinson's disease, peripheral neuropathy, quadriplegia, seizures, TIA and strokes. Respiratory: No history of current cough or dyspnea, or pneumonia in the past 6 weeks. No history of respiratory/pulmonary symptoms or problems. Cardiovascular: No history of HTN requiring medication, no history of angina, CHF, NM, cardiac surgery or stents. Denies rest pain, [...] > 1 time per night or hematuria. CONDUCTOR ORCHESTRA: Negative for abnormal vaginal bleeding, abnormal vaginal [...] 360 QTC Calculation (Bazett) 435 Calculated P Young 51 Calculated R Young 60 Calculated T Young 48 Impression NORMAL SINUS RHYTHM LOW VOLTAGE QRS, CONSIDER PULMONARY DISEASE, PERICARDIAL EFFUSION, OR NORMAL VARIANT BORDERLINE ECG No results found for this or any previous visit (from the past 29034 hours). Instructions Given to Patient: Instructions located in the after visit summary. Patient given verbal and written preop instructions and voices comprehension and compliance. SIGNATURE: Anabel Acevedo APRN.CNP PATIENT NAME: Yolande Gomes DATE: June 15, 2024 TIME: 6:08 AM PAGER/CONTACT #: T [facility] 06-15-2024 History and physical note Images from [...] additional comments: *PACC/TCI - anesthesia choice. Beta Kathleen Monitoring Plan Post Procedure Analgesic Plan Prepared [...] (Right) BIOPSY NODE SENTINEL AXILLARY (Right) TISSUE DIRECTOR TELEVISION PLACEMENT IN BREAST RECONSTRUCTION BILATERAL (Bilateral) IMPLANTATION [...] Dr Taylor Right skin-sparing mastectomy with R [place] Lymph node biopsy, Left prophylactic skin-sparing mastectomy as next step in treatment the above procedure is recommended. Patient is agreeable and would like to proceed. REVIEW OF SYSTEMS: General: No weight loss, malaise or fevers. Neurological: Positive for: headaches. Negative for: cerebral palsy, SENIOR ETL DEVELOPER tumor, delirium, dementia, hemiplegia, impaired sensorium, multiple sclerosis, paraplegia, Parkinson's disease, peripheral neuropathy, quadriplegia, seizures, TIA and strokes. Respiratory: No history of current cough or dyspnea, or pneumonia in the past 6 weeks. No history of respiratory/pulmonary symptoms or problems. Cardiovascular: No history of HTN requiring medication, no history of angina, CHF, NM, cardiac surgery or stents. Denies rest pain, [...] > 1 time per night or hematuria. CONDUCTOR ORCHESTRA: Negative for abnormal vaginal bleeding, abnormal vaginal [...] 360 QTC Calculation (Bazett) 435 Calculated P Young 51 Calculated R Young 60 Calculated T Young 48 Impression NORMAL SINUS RHYTHM LOW VOLTAGE QRS, CONSIDER PULMONARY DISEASE, PERICARDIAL EFFUSION, OR NORMAL VARIANT BORDERLINE ECG No results found for this or any previous visit (from the past 28365 hours). Instructions Given to Patient: Instructions located in the after visit summary. Patient given verbal and written preop instructions and voices comprehension and compliance. SIGNATURE: Anabel Acevedo APRN.CNP PATIENT NAME: Yolande Gomes DATE: June 15, 2024 TIME: 6:08 AM PAGER/CONTACT #: documented in this encounter [facility] 06-15-2024 Instructions Anabel Acevedo APRN.CNP - 06/15/2024 10:26 AM EDT Images from the original note were not included. [place] [facility] PATIENT PREOPERATIVE INSTRUCTIONS Pradeep Taylor MD has scheduled you for your procedure at this surgery center: [facility] [place] Scheduling Office: [phone] --[address] [place] [address]. Please read below carefully for your personalized [...] office. If you are currently using a pebm-byi-dvhf injectable or oral medication for diabetes or [...] Procedures: - YOU MUST HAVE A RESPONSIBLE INVESTIGATIVE AGENT TAKE YOU HOME. A REPAIRER AUTO CLOCKS OR LUG LOADER CANNOT BE MADE A RESPONSIBLE INVESTIGATIVE AGENT. - We recommend that a responsible person [...] call the Friday before. Your surgeon s train planner will tell you what time to call the office. - If you have not reached the departmental train planner by 5 P.M., call [phone] after 5 P.M. the day before your surgery. Please be aware that emergency situations arise, which may delay or change your surgical time. If this happens, we will notify you as soon as possible and regret any inconvenience. If you already have an Advance Directive, please fax a copy to [phone] or email to for it to be [...] chart that day. documented in this encounter [facility] 06-08-2024 Telephone encounter Note Pt is scheduled with Dr Fairbanks on 06/23/24 (made on 06/03) so no need to schedule here unless that changes. [facility] 06-08-2024 Miscellaneous Notes Pt is scheduled with Dr Fairbanks on 06/23/24 (made on 06/03) so no need to schedule here unless that changes. Called patient no answer and unable to leave vm due to mailbox being full. Leslie Cowart Please try again to reach patient to schedule consultation per below note. Thank you. Received email to schedule Radiation Consult. Order in Epic. 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 Called patient to schedule, Unable to leave message. Voicemail full. documented in this encounter [facility] 06-07-2024 Telephone encounter Note Called patient no answer and unable to leave vm due to mailbox being full. Leslie Cowart [facility] 06-07-2024 Telephone encounter Note Please try again to reach patient to schedule consultation per below note. Thank you. [facility] 06-07-2024 Telephone encounter Note Called and spoke with patient. Reviewed hormone receptor status returned as ER+ (95%). Patient appreciative of call. Lakisha Boss PA-C [facility] Work Phone: 06-07-2024 Miscellaneous Notes Called and spoke with patient. Reviewed hormone receptor status returned as ER+ (95%). Patient appreciative of call. Lakisha Boss PA-C documented in this encounter [facility] 06-06-2024 Progress note Formatting of t his note might be different from the original. Genetic test results Yolande Gomes's Multi-Cancer panel through [employer] was negative for a pathogenic variant. Variant(s) of uncertain significance (VUS) detected: CTNNA1 c.2558A>G (p.[id number]). A VUS is a genetic variant for which insufficient data exists in order to determine if it is associated with disease (deleterious mutation) or is a normal genetic variant which can occur in the population without disease (benign polymorphism). Please see [employer] message for further discussion. Tawnya Anne, [facility] Licensed, Certified Genetic Counselor [facility] Work Phone: 06-06-2024 Miscellaneous Notes Genetic test results Yolande Gomes's Multi-Cancer panel through [employer] was negative for a pathogenic variant. Variant(s) of uncertain significance (VUS) detected: CTNNA1 c.2558A>G (p.Scc324Wkt). A VUS is a genetic variant for which insufficient data exists in order to determine if it is associated with disease (deleterious mutation) or is a normal genetic variant which can occur in the population without disease (benign polymorphism). Please see [employer] message for further discussion. Tawnya Anne, [facility] Licensed, Certified Genetic Counselor documented in this encounter [facility] 06-03-2024 Note HNO ID: [id number] Author: ANA CASTILLO ST Service: ? Author Type: Surg Software Quality Automation Engineer Type: Progress Notes Filed: 06/03/2024 11:43 Note Text: DATE OF PHOTOS: 06/03/2024 Body Part: Breasts ST SLAVA June 03, 2024 11:43 AM [facility] 06-03-2024 History of Present illness Narrative DATE OF PHOTOS: 06/03/2024 Body Part: Breasts ST SLAVA June 03, 2024 11:43 AM documented in this encounter [facility] 06-03-2024 History of Present illness Narrative BREAST RECONSTRUCTION EVALUATION CC: Breast Reconstruction Evaluation. HPI: Yolande Gomes is a 43 year old female that presents today for breast reconstruction evaluation. 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 The oncologic treatment plan includes bilateral mastectomy [...] left nipple. Plan is to have tissue health and fitness instructor placement following mastectomy Will have a drain in bilateral breasts following surgery and will be on an antibiotic for 1 week. Photographs have been taken and will be sent to the insurance company as necessary. Yolande Gomes was given supplemental information on breast reconstruction. I have advised her to contact me at any time with further questions she may have regarding breast reconstruction. Patient on Prozac. Recommended to follow up with ordering provider to make sure that medication does not need to be adjusted. Consent obtained today Approximate tissue health and fitness instructor size or implant size: 133 mv 400-600 Matrix Support/ADM Size: 16 x 20 This plan will be coordinated with Dr. Dr. Pradeep Taylor. The patient is seen and examined by Dr. Isiah Messina and the following reflects his service. Scribed by Alicia Brown RN I agree with the Chief Complaint, ROS, and Past Histories independently gathered by the clinical application support engineer and the remaining scribed note accurately describes [...] which included preparing to see the patient, [id number]-idvh patient care, completing clinical documentation, obtaining & reviewing separately an obtained history, performing a medically appropriate examination, counseling & educating the patient/family/caregiver, ordering medications, tests, or procedures, communicating with other healthcare providers, independently interpreting the results, communicating results to the patient care team, and continued patient care coordination. This is included in the documentation noted above. Isiah Messina MD documented in this encounter [facility] 06-03-2024 Note [facility] 06-01-2024 Telephone encounter Note Received email to schedule Radiation Consult. Order in Epic. 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 Called patient to schedule, Unable to leave message. Voicemail full. [facility] Work Phone: 06-01-2024 History of Present illness [...] social history on file. 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 No children. Current Outpatient Medications Medication Sig [...] Dept Phone 06/01/2024 1:00 PM JAIMEE RANDALL [facility] [phone] 06/11/2024 10:20 AM ISABELA OLIVERA [facility] [phone] 06/18/2024 8:30 AM CRISTAL CONH Deb [facility] 06/30/2024 10:00 AM GLORY ARMSTRONG [facility] [phone] 1. Ductal carcinoma in situ (DCIS) of right breast - ICD9: 233.0, ICD10: D05.11 Jaimee Randall MD Associate Staff [facility] 06/01/2024 Discussed in detail with the [...] which included preparing to see the patient, gdug-sw-yoxl patient care, completing clinical documentation, obtaining and/or reviewing separately obtained history, performing a medically appropriate examination, counseling and educating the patient/family/caregiver, ordering medications, tests, or procedures, and communicating results to the patient/family/caregiver. documented in this encounter [facility] 06-01-2024 Note [facility] 05-31-2024 Telephone encounter Note Called patient and [...] Lissette Mcleod APRN.CNP May 31, 2024 15:29 [facility] 05-31-2024 Miscellaneous Notes Called patient and verified [...] 31, 2024 15:29 documented in this encounter [facility] 05-31-2024 Note [facility] 05-31-2024 History of Present illness Narrative AMBULATORY [...] to patient with instruction. Electronically Signed By: Natty Jade RN In Department: HEMATOLOGY/ONCOLOGY Time spent on patient education: 30 minutes. documented in this encounter [facility] 05-31-2024 History of Present illness Narrative [facility] [place] Department of Breast Surgical Oncology [facility] NEW BREAST CANCER - INITIAL SURGICAL VISIT [...] mid depth at least ADH. Stage 0, [id number]. Ms. Gomes was initially seen by Lissette [...] bipolar, borderline personality disorder No DM, CVA, NM, renal, hepatic, pulmonary disease/dysfunction. 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 As applicable, any other physician, advance practice provider, medical student, or other health professional student that will be observing or involved in the sensitive examination for educational or training purposes was discussed with the Patient or Authorized Restaurant Kitchen And Service Manager. The Patient or Authorized Restaurant Kitchen And Service Manager has agreed to proceed with the sensitive examination. IMAGING TO DATE: Addenda * * *Final Report* * * * * * SEE BOTTOM OF REPORT FOR ADDENDED TEXT * * * DATE OF EXAM: May 20 2024 8:55AM W 0629 - МАРИЯ KILLIAN RT / PROCEDURE REASON: Abnormal finding on radiology exam * * * * Physician Interpretation * * * * RESULT: [facility] [address] [facility] [place] [address] - - - - - - - [...] - - - - - - - #[id number] - [facility] US BIOPSY BREAST RT #[id number] - [facility] NEHEMIAS KILLIAN RT HISTORY: 43 year old [...] Christine Pulliam M.D. Electronically signed on: 05/20/2024 Top Frame Fitter: JD Transcribe Date/Time: May 20 2024 8:03A Dictated by : CHRISTINE PULLIAM MD This examination was interpreted and the report reviewed and electronically signed by: CHRISTINE PULLIAM MD on Mar 27 2025 9:18AM EST 05/10/2024 3:18 PM - Radiology, Oru In Addenda * * *Final Report* * * * * * SEE BOTTOM OF REPORT FOR ADDENDED TEXT * * * DATE OF EXAM: May 10 2024 10:56AM W 0627 - МАРИЯ NEHEMIAS KILLIAN RAN / PROCEDURE REASON: multiple diagnoses * * * * Physician Interpretation * * * * RESULT: [address] [place] [address] - - - - - - - [...] - - - - - - - #[id number] - [facility] NEHEMIAS W CONSTANTIN RAN #[id number] - [facility] [employer] BREAST LTD RT #[id number] - [facility] [employer] BREAST LTD LT HISTORY: 43 year-old patient [...] (ADH), bordering on ductal carcinoma in-situ (DCIS). [facility] 05/28/24 at 1155 EDT Diagnosis Comment Select slides of Parts A and B were reviewed with Dr. Steph Chavez of the [facility] Breast Pathology Service, who concurs with the above interpretation of ductal carcinoma in-situ (DCIS) and atypical ductal hyperplasia (ADH), respectively. An immunohistochemical stain for estrogen receptor (ER) is pending, formal quantitative interpretation of which will be reported separately. [facility] 05/28/24 Component Resulting Agency FINAL DIAGNOSIS [...] 2024 1:38 PM Gross examination performed at [facility], [address] [place] [address] Performing Lab HL LAB Diagnostic interpretation performed at: [facility], [address] [place] [address] CLIA# [id number] Floor Broker: Tejal Chavarria MD ASSESSMENT: (N64.52) Nipple discharge [...] mid depth at least ADH. Stage 0, [id number]. I have examined Ms. Gomes and reviewed [...] Plan for Right skin-sparing mastectomy with R [place] Lymph node biopsy, Left prophylactic skin-sparing mastectomy [...] which included preparing to see the patient, qsrg-wa-asjr patient care, completing clinical documentation, performing a [...] No Does patient want to see a Load Tester? No (yes to any of above refer patient to schedulers for dietitian appointment) ) Does patient have any new or increased numbness or tingling of extremities? No Is patient interested in fertility information? No Does patient need any prescription refills? No Does patient have an advanced directive in place? no Electronically Signed By: Grecia Hammond LPN documented in this encounter [facility] 05-31-2024 Note [facility] 05-31-2024 Note [facility] 05-28-2024 Telephone encounter Note Attempted to call patient to discuss right breast biopsy results from 05/27/2024. Voicemail box was full and I was unable to leave a message. Lissette Mcleod APRN.CNP May 28, 2024 17:09 [facility] Work Phone: 05-28-2024 Miscellaneous Notes Attempted to call patient to discuss right breast biopsy results from 05/27/2024. Voicemail box was full and I was unable to leave a message. Lissette Mcleod APRN.CNP May 28, 2024 17:09 documented in this encounter [facility] 05-28-2024 Telephone encounter Note Called and spoke with patient who was identified by name and . Informed pt. the breast pathology results show malignancy per Dr. Win. Introduced patient to POC for multidisciplinary consults Surgical Hem/Onc Rad/Onc as well as future contact from surgical patient care assistant for introductory call and appointment time review. Assessed patient preference for surgical teams and locations, and offered first available appointment that met patient's needs. Patient in agreement with plan outline below. Surgeon: Dr. Taylor Site: [facility] Date: 05/31/2024 Time: 829 [facility] 05-28-2024 Miscellaneous Notes Called and spoke with patient who was identified by name and . Informed pt. the breast pathology results show malignancy per Dr. Win. Introduced patient to POC for multidisciplinary consults Surgical Hem/Onc Rad/Onc as well as future contact from surgical patient care assistant for introductory call and appointment time review. Assessed patient preference for surgical teams and locations, and offered first available appointment that met patient's needs. Patient in agreement with plan outline below. Surgeon: Dr. Taylor Site: [facility] Date: 05/31/2024 Time: 829 documented in this encounter [facility] 05-27-2024 History of Present illness Narrative Radiology [...] PATIENT PRESENTS WITH AN IMPLANTABLE OR ATTACHED ROLLING ATTENDANT: No ALLERGIES: Reviewed and unchanged CONTRAST ALLERGY: [...] TIME: 11:59 AM documented in this encounter [facility] 05-27-2024 Note [facility] 05-24-2024 Telephone encounter Note Called patient to notify the breast pathology results are benign per Dr. Pulliam. Informed patient a 6 month follow up is recommended. Patient verbalized understanding. [facility] Work Phone: 05-24-2024 Miscellaneous Notes Called patient to notify the breast pathology results are benign per Dr. Pulliam. Informed patient a 6 month follow up is recommended. Patient verbalized understanding. documented in this encounter [facility] 05-20-2024 Instructions Formatting of th is note might be different from the original. Post procedure written instructions were given to the patient. [facility] 05-20-2024 Note HNO ID: [id number] Author: ROWDY LIZARRAGA RT(R) Service: ? Author Type: Software Quality Automation Engineer Type: Patient Education Filed: 05/20/2024 08:42 Note Text: Post procedure written instructions were given to the patient. [facility] 05-20-2024 Miscellaneous Notes Post procedure written instructions were given to the patient. documented in this encounter [facility] 05-20-2024 History of Present illness Narrative Radiology [...] PATIENT PRESENTS WITH AN IMPLANTABLE OR ATTACHED ROLLING ATTENDANT: No RADIOLOGY DEPARTMENT: Mammography PERIPHERAL IV DATA: Not applicable SIGNED BY: KYLE Duncan) May 20, 2024 8:03 AM documented in this encounter [facility] 05-20-2024 Note HNO ID: [id number] Author: ROWDY LIZARRAGA RT(R) Service: ? Author Type: Software Quality Automation Engineer Type: Progress Notes Filed: 05/20/2024 08:03 Note [...] PATIENT PRESENTS WITH AN IMPLANTABLE OR ATTACHED ROLLING ATTENDANT: No RADIOLOGY DEPARTMENT: Mammography PERIPHERAL IV DATA: Not applicable SIGNED BY: RT Perla(Tj) May 20, 2024 8:03 AM [facility] 05-10-2024 Telephone encounter Note Called patient and verified identity. She had a breast MRI at an OSH performed on 04/13/2024 that showed a right breast asymmetry with prominent non-mass enhancement in the right breast. Her imaging was reviewed by Dr. Monique on 05/05/2024. MRI 04/13/24 and recent mammogram [...] there was no sonographic correlate. Per Dr. Monique, she is to have an MRI guided [...] Lissette Mcleod APRN.CNP May 10, 2024 15:20 [facility] Work Phone: 05-10-2024 Miscellaneous Notes Called patient and verified identity. She had a breast MRI at an OSH performed on 04/13/2024 that showed a right breast asymmetry with prominent non-mass enhancement in the right breast. Her imaging was reviewed by Dr. Monique on 05/05/2024. MRI 04/13/24 and recent mammogram [...] there was no sonographic correlate. Per Dr. Monique, she is to have an MRI guided [...] may complete this lab work at any F facility. Patient my contact me with any questions or concerns. Lissette Mcleod APRN.CNP May 10, 2024 15:20 documented in this encounter [facility] 05-10-2024 History of Present illness Narrative Radiology Service Progress Note PATIENT NAME: Yolande Gomse DATE OF SERVICE: May 10, 2024 TIME: [...] PATIENT PRESENTS WITH AN IMPLANTABLE OR ATTACHED ROLLING ATTENDANT: No RADIOLOGY DEPARTMENT: Mammography PERIPHERAL IV DATA: Not applicable SIGNED BY: RT Alia(R) May 10, 2024 11:11 AM documented in this encounter [facility] 05-10-2024 Note [facility] 05-10-2024 History of Present illness Narrative Images from the original note were not included. MEDICAL BREAST PATIENT NAME: Yolande Gomes May 10, 2024 REFERRAL: She is self referred for an opinion regarding right bloody nipple discharge and abnormal breast MRI from OSH. HISTORY of PRESENT ILLNESS: Yolande Gomes is a 43 year old premenopausal female who presents to the [facility] today for an evaluation of [...] was clear. 05/05/[address] Jesse Monique: MRI 04/13/24 and recent mammogram 12/12/23 were [...] Patient had diagnostic imaging on 04/13/2024 from [facility] and the radiologists recommendations were to have a right breast MRI guided biopsy for UOQ non-mass enhancement. 04/13/2024 [facility] Breast MRI (for right bloody nipple discharge): [...] thoracic and abdominal viscera are unremarkable. 12/12/2023 [facility]: Bilateral screening mammogram- There are scattered areas [...] Breast cancer: No CANCER SURVEILLANCE: Mammograms: 12/12/2023 ([facility]) - as above Breast MRI: 04/13/2024 ([facility]) - as above Colonoscopy: Per patient report, [...] which included preparing to see the patient, [id number] patient care, completing clinical documentation, obtaining and/or reviewing separately obtained history, performing a medically appropriate examination, counseling and educating the patient/family/caregiver, ordering medications, tests, or procedures, communicating with other HCPs (not separately reported), independently interpreting results (not separately reported), and communicating results to the patient/family/caregiver. Lissette Mcleod APRN.RODO Medical Breast Specialist May 10, 2024 CC: No referring provider defined for this encounter. Phone: N/A Fax: Isabela Olivera [address] [place] [address] documented in this encounter [facility] 05-10-2024 Note [facility] 05-05-2024 Note [facility] 05-05-2024 History of Present illness Narrative Recommended [...] calcifications or architectural distortion. Breast Radiologist: Jesse Monique MD May 05, 2024 documented in this encounter [facility] 04-30-2024 Telephone encounter Note Recommended breast biopsy denied. Denied: MRI Guided Biopsy Next Step: Obtain outside breast imaging if possible including recent mammograms, ultrasounds, and MRIs if possible or will need to repeat imaging. Only recent reports are available but imaging needs to be submitted for overread. Next step order panel placed: No Approving Radiologist: Jesse Monique MD April 30, 2024 [facility] Work Phone: 04-30-2024 Miscellaneous Notes Recommended breast biopsy denied. Denied: MRI Guided Biopsy Next Step: Obtain outside breast imaging if possible including recent mammograms, ultrasounds, and MRIs if possible or will need to repeat imaging. Only recent reports are available but imaging needs to be submitted for overread. Next step order panel placed: No Approving Radiologist: Jesse Monique MD April 30, 2024 Outside Biopsy Recommended Review Request Patient Name: Yolande Gomes Date films received: 04/13/2024 Name of outside facility: [facility] Images in AGFA: Yes Outside Radiologist's recommendation: Right Breast MRI Bx Date of outside study: 04/13/2024 Patient told to bring script: No IS PATIENT ON BLOOD THINNERS: no Last INR & Date: Comments: Order is uploaded in Fittr documented in this encounter [facility] 04-28-2024 Telephone encounter Note Outside Biopsy Recommended Review Request Patient Name: Yolande Gomes Date films received: 04/13/2024 Name of outside facility: [facility] Images in AGFA: Yes Outside Radiologist's recommendation: Right Breast MRI Bx Date of outside study: 04/13/2024 Patient told to bring script: No IS PATIENT ON BLOOD THINNERS: no Last INR & Date: Comments: Order is uploaded in [employer] [facility] Work Phone: 04-28-2024 Telephone encounter Note Outside Biopsy Recommended Review Request Patient Name: Yolande Gomes films received: 04/13/2024 Name of outside facility: [facility] Images in AGFA: Yes Outside Radiologist's recommendation: Right Breast MRI Bx Date of outside study: 04/13/2024 Patient told to bring script: No IS PATIENT ON BLOOD THINNERS: no Last INR & Date: Comments: Order is uploaded in [employer] [facility] Work Phone: 04-28-2024 Miscellaneous Notes Outside Biopsy Recommended Review Request Patient Name: Yolande Gomes films received: 04/13/2024 Name of outside facility: [facility] Images in FA: Yes Outside Radiologist's recommendation: Right Breast MRI Bx Date of outside study: 04/13/2024 Patient told to bring script: No IS PATIENT ON BLOOD THINNERS: no Last INR & Date: Comments: Order is uploaded in [employer] documented in this encounter [facility] 04-16-2024 Evaluation note Diagnosis Onset Date Resolution Acute upper respiratory infection inactive April 16 9:03am Contact with or suspected exposure to other viral communicable disease inactive April 162024 9:03am Acute sinusitis acute July 16, 2024 11:35am [facility] Work Phone: [phone]) 188-989902-05-2025 Instructions* Patient Instructions* Glory Armstrong MD - 03/31/2024 9:47 AM EST Please do labs at your earliest convenience and let us know once completed If dose change is made based on new lab results, we shall do repeat labs again and follow up in 3 months documented in this encounterSelect [facility]02-[facility]-2025 [facility] History of Present illness Narrative* Glory Armstrong MD - 03/31/2024 9:38 AM EST [facility] Follow up note- virtual Virtual Visit (Audio/Visual)I have discussed the nature of this visit with the patient which will occur via Distance Health (Phone, Virtual Visit) and she agrees to proceed with this interaction. I have communicated my name and active licensure. The patient's identity and physical location wereverified at the time of this visit. Either the patient or their legal customer development representative has been informed of the risks and benefits of -- and alternatives to -- treatment through a remote evaluation andconsents to proceed with the evaluation remotely. History of Present Illness: Yolande Gomes is a 43 year old female here forv follow up of hypothyroidism. Initial visit/ [facility] on 08/18/23 How hypothyroidism was discovered: 2 years ago- she had significant weight gain (difficulty losing weight despite diet and exercise, but has stabilized Current treatment: LT4 100 mcg 5 days a week Prior treatment: PUBLIC RELATIONS OFFICER thyroid 30 mg daily, 60 mg on MWF, last dose change in Nov 2022 from 30 mgdaily General symptoms: Fatigue: lethargic. She has her [...] been taking LT4, feeling better than on PUBLIC RELATIONS OFFICER thyroid previously. She is having less hair [...] 70 Units subcutaneously one time a week. PUBLIC RELATIONS OFFICER THYROID 30 mg tablet Take 30 mg [...] 100 mcg 5 days a week from PUBLIC RELATIONS OFFICER thyroid, based on labs in 07/2023. No [...] Moderate Glory Armstrong MD Endocrinology Associate Staff [facility] Endocrinology and Metabolism [place] [phone] documented in this encounterSelect [facility]2024 [facility]2024 History of Present illness Narrative* Mateo Samano PA-C - 01/07/2024 7:50 PM EST This note was created using Kids Calendar[employer]. Subjective Yolande Gomes is a 43 year old female. HPI Presents with the chief complaint of sore throat, runny nose, body aches over the past day. She states she had flown on a plane from [place] 2 days ago coming home from vacation. [...] the week, skip on 2 days of theweek (may be Friday and Friday) 65 tablet [...] 72.7 kg (160 lb 4.4 oz) LMP 07/29/2023(Exact Date) SpO2 99% BMI 29.31 kg/m Physical Exam Vitals reviewed. Constitutional: Appearance: Normal appearance. HENT: Head: Normocephalic and atraumatic. Right Ear: Tympanic membrane, ear canal and external ear normal. Left Ear: Tympanic membrane, ear canal and external ear normal. Nose: Congestion present. Mouth/Throat: Lips: [place]. Mouth: Mucous membranes are moist. Pharynx: Posterior oropharyngeal erythema present. No pharyngeal swelling, oropharyngeal exudate oruvula swelling. Tonsils: 1+ on the right. 1+ [...] negative. Discussed if not improving follow-up with PCP.Patient agreeable. - XR CHEST 2V FRONTAL/LAT Mateo Samano PA-C documented in this encounterSelect [facility]20[facility] History of Present illness Narrative* Melida Arriaga RT(R) - 01/07/2024 7:30 PM EST Radiology Service Progress Note PATIENT NAME: Yolande Gomes DATE OF SERVICE: January 07, 2024 TIME: 7:25 PM PATIENT IDENTITY VERIFICATION COMPLETED USING TWO (2) IDENTIFIERS: Name and Date of confirmedby patient verbally. FALL SCREENING: Has the patient had 2 falls in the last year or 1 fall with injury or currently using an Ambulatory Assistive Device (Walker, Cane, Wheelchair, Crutches, etc.)? No PATIENT GENDER DATA: Female. status: : No status: NO. PATIENT RELEVANT IMPLANT DATA REVIEWED: Yes PATIENT PRESENTS WITH AN IMPLANTABLE OR ATTACHED ROLLING ATTENDANT: No RADIOLOGY DEPARTMENT: General X-ray: Exam(s) Completed: Chest X-Ray PERIPHERAL IV DATA: Not applicable SIGNED BY: RT Mohini(Tj) January 07, 2024 7:25 PM documented in this encounterSelect [facility]2024 NoteOhio [facility] Hospital11-04-2024 Telephone encounter Note* Telephone Encounter - Marina Davila MA - 12/29/2023 10:34 AM EST Pharmacy verified in [employer]. Patient has been identified by name and [...] (155 lb 13.8 oz) Please advise. Marina Davila MA [facility]11-04-2024 Miscellaneous Notes* Telephone Encounter - Marina Davila MA - 12/29/2023 10:34 AM EST Pharmacy verified in [facility]. Patient has been identified by name and [...] (155 lb 13.8 oz) Please advise. Marina Davila MA documented in this encounterSelect [facility]10-22-2024 History of Present illness Narrative* Kimberly Julio RT(R) - 12/16/2023 8:00 AM EDT Radiology Service Progress Note PATIENT NAME: Yolande Gomes DATE OF SERVICE: December 16, 2023 TIME: 1:13 PM PATIENT IDENTITY VERIFICATION COMPLETED USING TWO (2) IDENTIFIERS: Name and Date of confirmedby patient verbally. FALL SCREENING: Has the patient had 2 falls in the last year or 1 fall with injury or currently using an Ambulatory Assistive Device (Walker, Cane, Wheelchair, Crutches, etc.)? No PATIENT GENDER DATA: Female. status: : No status: NO. PATIENT RELEVANT IMPLANT DATA REVIEWED: Yes PATIENT PRESENTS WITH AN IMPLANTABLE OR ATTACHED ROLLING ATTENDANT: No RADIOLOGY DEPARTMENT: CT; Exam(s) Completed: Brain PERIPHERAL IV DATA: Not applicable SIGNED BY: RT Padilla(R) December 16, 2023 1:13 PM documented in this encounterSelect [facility]10-22-2024 NoteOhio [facility]10-04-2024 Note[facility]10-04-2024 History of Present illness Narrative* Crissy Colon MD - 11/28/2023 10:02 AM EDT PROMIS [employer] Mental Health Summary Quality [...] NOTE This is a virtual visit using [employer] Zoom Video Visit. It required patient- provider interaction for the medical decision making as documented below. I have communicated my name and active licensure. The patient's identity and physical location wereverified at the time of this visit. Either the patient or their legal customer development representative has been informed of the risks and benefits of -- and alternatives to -- treatment through a remote evaluation andconsents to proceed with the evaluation remotely. Yolande Valle Biju is a 43 year old female seen [...] the week, skip on 2 days of theweek (may be Friday and Friday) Magnesium 200 [...] with status migrainosus (primary encounter diagnosis) PLAN: [facility] on 11/28/23 CT BRAIN WO IVCON New prescriptions written ,she already has been to headache clinic QULIPTA as preventive and Relpax as needed There are no Patient Instructions on file for this visit. I spent a total of 30 minutes on the date of the service which included preparing to see the patient, fxfr-[id number]-[id number] patient care, completing clinical documentation, obtaining and/or reviewing separately obtained history, and counseling and educating the patient/family/caregiver Crissy Colon MD documented in this encounterSelect [facility]10-01-2024 Telephone encounter Note * Telephone Encounter - Aleena Patel - 11/25/2023 9:34 AM EDT Physician: Dr. Colon Call from pharmacy requesting refill. Please E-Scribe Last OV: 11/28/[address] Colon Future OV: 10/13/[address] Cuellar Please confirm if the message should be for Dr. Colon or Dr. Cuellar. Thank you Requested Prescriptions Pending Prescriptions Disp Refills eletriptan (RELPAX) 20 mg tablet 12 tablet 0 Sig: Take 1 tablet (20 mg) by mouth as needed. May repeat dose after 2 hours if needed. Maximum daily dose is 80 mg per day. Pharmacy Name: [facility] Phone #: [phone] 10/13/2023 - Dr. Cuellar ASSESSMENT: -Bilateral occipital neuralgia RECOMMENDATIONS: -Bilateral occipital nerve block today -Follow up as needed. lEly Cuellar MD 08/01/23 Dr. Colon Assessment & Plan: Yolande Gomes is a 42 year old female with a history of hypothyroidism, migraine. Her examination demonstrates no neurologic deficits. Patient presents for evaluation of migraines as well as multiple different neurologic symptoms starting in June. Notes that she followed with Dr. Colon at the end of April and was [...] therapy. Patient already has appointment with Dr. Colon scheduled for next week encouraged her to follow-up. Will reach out to Dr. Colon to see if any additional testing or workup is needed. Patient agreeable to treatment plan of care at this time, questions were answered. Patient follow-up as needed. Yolande was seen today for established patient. Diagnoses and all orders for this visit: 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 and without status migrainosus Paresthesia of skin She should return to see me prn. [facility] Work Phone: [phone]) 890-617210-01-2024 Miscellaneous Notes* Telephone Encounter - Aleena Patel - 11/25/2023 9:34 AM EDT Physician: Dr. Colon Call from pharmacy requesting refill. Please E-Scribe Last OV: 11/28/[address] Colon Future OV: 10/13/[address] Cuellar Please confirm if the message should be for Dr. Colon or Dr. Cuellar. Thank you Requested Prescriptions Pending Prescriptions Disp Refills eletriptan (RELPAX) 20 mg tablet 12 tablet 0 Sig: Take 1 tablet (20 mg) by mouth as needed. May repeat dose after 2 hours if needed. Maximum daily dose is 80 mg per day. Pharmacy Name: [facility] Phone #: [phone] 10/13/2023 - Dr. Cuellar ASSESSMENT: -Bilateral occipital neuralgia RECOMMENDATIONS: -Bilateral occipital nerve block today -Follow up as needed. Elly Cuellar MD 08/01/23 Dr. Colon Assessment & Plan: Yolande Gomes is a 42 year old female with a history of hypothyroidism, migraine. Her examination demonstrates no neurologic deficits. Patient presents for evaluation of migraines as well as multiple different neurologic symptoms starting in June. Notes that she followed with Dr. Colon at the end of April and was [...] therapy. Patient already has appointment with Dr. Colon scheduled for next week encouraged her to follow-up. Will reach out to Dr. Colon to see if any additional testing or workup is needed. Patient agreeable to treatment plan of care at this time, questions were answered. Patient follow-up as needed. Yolande was seen today for established patient. Diagnoses and all orders for this visit: 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 and without status migrainosus Paresthesia of skin She should return to see me prn. documented in this encounterSelect [facility]09-27-2024 Telephone encounter Note * Telephone Encounter - Marina Davila MA - 11/21/2023 9:08 AM EDT Pharmacy verified in [employer]. Patient has been identified by name and [...] (155 lb 13.8 oz) Please advise. Marina Davila MA [facility]09-27-2024 Miscellaneous Notes* Telephone Encounter - Marina Davila MA - 11/21/2023 9:08 AM EDT Pharmacy verified in [employer]. Patient has been identified by name and [...] (155 lb 13.8 oz) Please advise. Marina Davila MA documented in this encounterSelect [facility]09-19-2024 Telephone encounter Note * Telephone Encounter - Marina Davila MA - 2023 10:44 AM EDT Pharmacy verified in [employer]. Patient has been identified by name and [...] (155 lb 13.8 oz) Please advise. Marina Davila MA [facility]09-19-2024 Miscellaneous Notes* Telephone Encounter - Marina Davila MA - 2023 10:44 AM EDT Pharmacy verified in [facility]. Patient has been identified by name and [...] (155 lb 13.8 oz) Please advise. Marina Davila MA documented in this encounterSelect Medical Specialty [facility]08-19-2024 NoteHNO ID: [id number] Author: ELLY CUELLAR MD Service: ? Author [...] Nerve Block: Dx: Occipital neuralgia Consent: In [facility] Informational guide about Occipital nerve block given [...] and bleeding was nil. Elly Cuellar MD [facility] Neurological InstituteTempleton Developmental [id number] Procedure note* Elly Cuellar MD - 10/13/2023 1:23 PM EDT Occipital Nerve Block procedure note: Responsible practitioner [...] Nerve Block: Dx: Occipital neuralgia Consent: In [facility] Informational guide about Occipital nerve block given [...] and bleeding was nil. Elly Cuellar MD [facility] Neurological [place] [facility]08-19-2024 Procedure note* Elly Cuellar MD - 10/13/2023 1:23 PM EDT Occipital Nerve Block procedure note: Responsible practitioner [...] Nerve Block: Dx: Occipital neuralgia Consent: In [facility] Informational guide about Occipital nerve block given [...] and bleeding was nil. Elly Cuellar MD [facility] Neurological [place] documented in this encounterSelect Medical Specialty [facility]08-19-2024 NoteHNO ID: [id number] Author: ELLY CUELLAR MD Service: ? Author Type: Physician Type: Progress Notes Filed: 10/13/2023 13:26 Note Text: PROGRESS NOTE-HEADACHE MEDICINE SERVICE DATE: October 13, 2023 Participants: Patient, mother and Provider Subjective HPI: Yolande Valle Quesarthak is here for nerve block, last seen [...] no pain to extension or flexion or hgeg-nw-aovb movement. Skin over the neck is intact. Palpation of sub-occipital area bilaterally triggers pain. ASSESSMENT: -Bilateral occipital neuralgia RECOMMENDATIONS: -Bilateral occipital nerve block today -Follow up as needed. Elly Cuellar MD [facility] Neurological InstituteTempleton Developmental [id number] History of Present illness Narrative* Elly Cuellar MD - 10/13/2023 12:42 PM EDT PROGRESS NOTE-HEADACHE MEDICINE SERVICE DATE: October 13, 2023 Participants: Patient, mother and Provider Subjective HPI: Yolande Gomes is here for nerve block, last seen on 08/08/2023. See pain description from that note. Pain unchanged. Outpatient Medications as of 10/13/2023 Medication Sig levothyroxine (SYNTHROID) 100 mcg tablet Take 1 tablet on 5 days of the week, skip on 2 days of theweek (may be Friday and Friday) Magnesium 200 [...] no pain to extension or flexion or thwm-hw-kcvw movement. Skin over the neck is intact. Palpation of sub-occipital area bilaterally triggers pain. ASSESSMENT: -Bilateral occipital neuralgia RECOMMENDATIONS: -Bilateral occipital nerve block today -Follow up as needed. Elly Cuellar MD [facility] Neurological [place] documented in this encounterSelect Medical Specialty [facility]07-24-2024 NoteHNO ID: [id number] Author: ELLY CUELLAR MD Service: ? Author Type: Physician Type: Progress Notes Filed: 09/17/2023 14:14 Note Text: Patient came for a nerve block but it was not approved by his insurance so we will cancel this appointment. Elly Cuellar MD [facility] Neurological InstituteTempleton Developmental [id number] History of Present illness Narrative* Elly Cuellar MD - 09/17/2023 2:13 PM EDT Patient came for a nerve block but it was not approved by his insurance so we will cancel this appointment. Elly Cuellar MD [facility] documented in this encounterSelect Medical [facility]07-07-2024 Telephone encounter Note * Telephone Encounter - Glory Armstrong MD - 08/31/2023 12:23 PM EDT Result management note sent to patient [facility]07-07-2024 Miscellaneous Notes* Telephone Encounter - Glory Armstrong MD - 08/31/2023 12:23 PM EDT Result management note sent to patient documented in this encounterSelect [facility]07-05-2024 Telephone encounter Note * Telephone Encounter - Emma Carl - 08/29/2023 10:22 AM EDT Web[employer]fewt message last read by Yolande Gomes at 5:26 AM on 08/28/2023. Emma Carl [facility]07-05-2024 Miscellaneous Notes* Telephone Encounter - Emma Carl - 08/29/2023 10:22 AM EDT Indexing message last read by Yolande Gomes at 5:26 AM on 08/28/2023. Emma Carl * Telephone Encounter - Emma Carl - 08/27/2023 3:24 PM EDT Due to an unplanned change in Dr. Colon's schedule, Patient's appt on 08/29/2023 has been cancelled. Called Patient-no answer, unable to leave voicemail. Patient notified of cancellation via WebCurfewt. Emma Carl documented in this encounterSelect Medical [facility]07-03-2024 Telephone encounter Note * Telephone Encounter - Emma Carl - 08/27/2023 3:24 PM EDT Due to an unplanned change in Dr. Colon's schedule, Patient's appt on 08/29/2023 has been cancelled. Called Patient-no answer, unable to leave voicemail. Patient notified of cancellation via WebCur[employer]wt. Emma Carl [facility]06-24-2024 Instructions* Patient Instructions* Glory Armstrong MD - 08/18/2023 9:17 AM EDT Please do labs- pending results, we shall adjust dose as needed and convert to levothyroxine with repeat labs 8 weeks documented in this encounterSelect Medical Specialty [facility]06-24-2024 History of Present illness Narrative* Glory Armstrong MD - 08/18/2023 8:46 AM EDT [facility] Initial Clinic Visit Note History of Present Illness: Yolande Gomes is a 42 year old female here to establish care for hypothyroidism. How hypothyroidism was discovered: 2 years ago- she had significant weight gain (difficulty losing weight despite diet and exercise, but has stabilized Current treatment: PUBLIC RELATIONS OFFICER thyroid 30 mg daily, 60 mg on MWF Prior treatment: PUBLIC RELATIONS OFFICER thyroid 30 mg daily, last dose change [...] 70 Units subcutaneously one time a week. PUBLIC RELATIONS OFFICER THYROID 30 mg tablet Take 30 mg [...] therapy and she would like to switch PUBLIC RELATIONS OFFICER thyroid to levothyroxine Labs in May 2023 [...] which included preparing to see the patient, [id number] patient care, completing clinical documentation, obtaining and/or reviewing separately obtained history, performing a medically appropriate examination, counseling and educating the pat ient/family/caregiver, ordering medications, tests, or procedures, and independently interpreting results (not separately reported). Glory Armstrong MD Endocrinology Associate Staff [facility] Endocrinology and Metabolism [place] [phone] documented in this encounterSelect Medical Special[facility]06-14-2024 History of Present illness Narrative* Elly Cuellar MD - 08/08/2023 2:16 PM EDT DISTANCE HEALTH VISIT I have communicated my name and active licensure. The patient's identity and physical location wereverified at the time of this visit. Either the patient or their legal customer development representative has been informed of the risks and benefits of -- and alternatives to -- treatment through a remote evaluation andconsents to proceed with the evaluation remotely. Total time spent on medical discussion: 30 minutes Elly Cuellar MD INITIAL CONSULT - HEADACHE MEDICINE SERVICE DATE: 08/08/2023 Participants: Patient and Provider Subjective HPI: Yolande Gomes is a 42 year old year old female with a chief complaint of headache. Patient has a long history of migraines and has seen several [facility] providers for those. She is here for [...] 70 Units subcutaneously one time a week. PUBLIC RELATIONS OFFICER THYROID 30 mg tablet Take 30 mg [...] if examination confirms diagnosis. Elly Cuellar MD [facility] Neurological [place] documented in this encounterSelect Medical Specialty [facility]06-13-2024 Telephone encounter Note * Telephone Encounter - Ioana Myles RN - 08/07/2023 11:21 AM EDT Received [employer] 08-07-23 at 10:20 AM. Vicki my name is Yolande Gomes. My date of is [birth year]. My phone number is [phone]. I am returning Ioana's phone call. A patient of Dr. Colon. Thank you. Call back to patient. Advised that there is no testing that would be needed prior to appointment. She states she needed to get in with someone CATIE, so she actually has an appointment with Dr. Cuellar tomorrow for migraine. [facility]06-13-2024 Miscellaneous Notes* Telephone Encounter - Ioana Myles RN - 08/07/2023 11:21 AM EDT Received voicemail 08-07-23 at 10:20 AM. Vicki my name is Yolande Gomes. My date of is [birth year]. My phone number is [phone]. I am returning Ioana's phone call. A patient of Dr. Colon. Thank you. Call back to patient. Advised that there is no testing that would be needed prior to appointment. She states she needed to get in with someone CATIE, so she actually has an appointment with Dr. Cuellar tomorrow for migraine. * Telephone Encounter - Ioana Myles RN - 08/07/2023 9:01 AM EDT Call to patient. No answer. Left voicemail to return call. * Telephone Encounter - Ioana Myles RN - 08/06/2023 12:38 PM EDT Call to patient. No answer. Mailbox full, unable to leave voicemail. No need for any type of additional testing prior to follow up appointment with Dr. Colon. If any additional testing is necessary, Dr. Colon will order at appointment. * Telephone Encounter - Emma Carl - 08/04/2023 4:23 PM EDT Due to an unexpected change in Dr. Colon's schedule, Patient's appt on 08/08/2023 has been cancelled/rescheduled to 08/29/2023. Patient does have the following question(s) for Clinical staff in the meantime: Per office visit with Makayla Jacobs PA-C on 08/01/2023: ...discussed that many of the symptoms she [the patient] is experiencing are likely secondary fromthe Topamax. Discussed stopping this medication and patient agrees. Patient without any history of seizures or epilepsy. Encouraged her to continue with magnesium, also educated her on additional supplements that may beneficial as preventative treatment as well. Will continue with Relpax as an abortive therapy. Patient already has appointment with Dr. Colon scheduled for next week encouraged her to follow-up. Will reach out to Dr. Colon to see if any additional testing or workup is needed. Patient asking if there is any testing (labs, imaging, etc.) that would be beneficial to complete prior to her next appointment with Dr. Colon? Please advise and call Patient at [phone] (work phone) with recommendations. Emma Carl documented [facility] this [facility] Telephone encounter Note * Telephone Encounter - Ioana Myles RN - 08/07/2023 9:01 AM EDT Call to patient. No answer. Left voicemail to return call. [facility] Telephone encounter Note* Telephone Encounter - Ioana Myles RN - 08/06/2023 12:38 PM EDT Call to patient. No answer. Mailbox full, unable to leave voicemail. No need for any type of additional testing prior to follow up appointment with Dr. Colon. If any additional testing is necessary, Dr. Colon will order at appointment. [facility]-11-[facility] Telephone encounter Note* Telephone Encounter - Danitza Galarza - 08/05/2023 10:42 AM EDT Referral submitted to [facility] Contact Center ([phone]). They will contact the patient to schedule.Confirmation number: [id number] Danitza Geovanni August 05, 2023 10:42 AM [facility]24 Miscellaneous Notes* Telephone Encounter - GalarzaDanitza - 08/05/2023 10:42 AM EDT Referral submitted to [facility] ([phone]). They will contact the patient to schedule.Confirmation number: [id number] Danitza Geovanni August 05, 2023 10:42 AM documented in this encounterSelect [facility]06-[facility]24 Telephone encounter Note * Telephone Encounter - Emma Carl - 08/04/2023 4:23 PM EDT Due to an unexpected change in Dr. Colon's schedule, Patient's appt on 08/08/2023 has been cancelled/rescheduled to 08/29/2023. Patient does have the following question(s) for Clinical staff in the meantime: Per office visit with Makayla Jcaobs PA-C on 08/01/2023: ...discussed that many of the symptoms she [the patient] is experiencing are likely secondary fromthe Topamax. Discussed stopping this medication and patient agrees. Patient without any history of seizures or epilepsy. Encouraged her to continue with magnesium, also educated her on additional supplements that may beneficial as preventative treatment as well. Will continue with Relpax as an abortive therapy. Patient already has appointment with Dr. Colon scheduled for next week encouraged her to follow-up. Will reach out to Dr. Colon to see if any additional testing or workup is needed. Patient asking if there is any testing (labs, imaging, etc.) that would be beneficial to complete prior to her next appointment with Dr. Colon? Please advise and call Patient at [phone] (work phone) with recommendations. Emma Carl [facility]-07-[facility] Instructions* Patient Instructions* Makayla Jacobs PA-C - 08/01/2023 2:41 PM EDT Follow up with Dr. Colon next week as planned. Stop the topiramate and you can start B2 or other supplements noted below Headache Preventive Treatment: Please keep in mind that it takes 4-6 weeks for the medication to start working well and 2-3 monthsat the appropriate dose before deciding if it will be useful or not. If it is not helping at all bythis time, then we will discuss other medications to try. Supplements may take 3-6 months until yousee full effect. Natural supplements: Magnesium Oxide 500 [...] supplementation of 400-750 mg. Three trials found 40-90%average headache reduction when used as a preventative. Magnesium also demonstrated the benefit in menstrually related migraine. Magnesium is part of the messenger system in the serotonin cascade andit is a good muscle relaxant. It is [...] side effects, although this could be helpful forthose with constipation. Magnesium oxide is also well [...] trials showed significant improvement in over half ofmigraine sufferers. The supplement is found in bread, cereal, milk, meat, and poultry. Most Americans get more riboflavin than the recommended daily allowance, however riboflavin deficiency is not necessary for the supplements to help prevent headache. Feverfew: Feverfew is a common garden herb [place] to [place] and popular in [place] [place] as a treatment for disorders typically controlled [...] You will know if you are food sensitiveif you get a headache consistently 20 minutes [...] pepperoni, Pickled france Pods of broad price (Australian beans, Georgian pea pods, Lithuanian (rodríguez) beans, villafana and navy beans Ripe avocado, ripe banana Yeast extracts or active yeast preparations such as Marquez's or Mal's (commercial bakes goodsare permitted) Tomato based foods, pizza (lasagna, etc.) [...] into a normally lit room hurts. Consider FL- 41 tint lenses, which reduce the most irritating wavelengths without blocking too muchlight. These can be obtained at Interactive TKO.iHandle or [employer] Foods: see list above. 2. Limit use of acute treatments (qrpx-ldz-pgukwod medications, triptans, etc.) to no more than [...] and quiet environment. Relax and reduce stress. Ksboqak2Kvocy is a free zunilda that can instruct you on some simple relaxtionand breathing techniques. Http://HouseTrip is a free website that provides teaching [...] the need for medications. Counseling for pain ma nagement, where patients learn to function and ignore/minimize their pain, seems to work very well. 9. Recommend changing family's attention and focus away from patient's headaches. Instead, emphasize daily activities. If first question of day is 'How are your headaches/Do you have a headache today?', then patient will constantly think about headaches, thus making them worse. Goal is to re-directattention away from headaches, toward daily activities and other distractions. 10. Helpful Websites: www.AmericanHeadacheSociety.org www.migrainetrust.org www.headaches.org www.migraine.org.uk www.achenet.org 11. HEADACHE EXPECTATIONS: There are many types of headaches, and only a rare few in which complete relief can be expected. Ingeneral, there is no cure for headache, especially migraine based headaches. There is nothing available that completely prevents headaches from occurring, breaking through, or having periodic flare-ups and fluctuations. Regardless of what you are using on a daily basis for prevention, episodic heada ches should still be expected, and periods where frequency may escalate and fluctuate are unavoidable. There is no quick fix for most headaches. Furthermore, the longer you have had high frequency headaches (such as chronic daily headache), the longer it will likely take to expect any improvement. In fact, some people will never improve, regardless of how many medications or other treatments we try.Our treatment strategy is to evaluate for possible causes of your headache, although testing is usually always normal, even in cases of daily continuous headaches for years. Most types of headache such as migraine are electrical brain disorders (similar to how epilepsy is an electrical brain disorders). Therefore, there is no testing that will reveal this dysfunctional electrical circuitry suchon MRI, or other testing. We try to [...] We can not predict if or when exac tly you will respond to a treatment that we provide. Preventive headache medications take 4-6 weeks to start working, and 2-3 months to see full effect,assuming you reach an effective dose. Therefore, calling or messaging frequently because you have aheadache flare prior to the 3 month nahum is unlikely to change anything, and unfortunately there isnothing available that will expedite this, so please try to avoid this. Our recommendation will gene rally be to give it adequate time first. [...] and will be handling your phone calls, WebCurfewt Messages and inquiries, if any. Unless explicitly told otherwise at the time of your office visit, your study results and ensuing treatment plans will be released via Indexing and discussed during your follow-up appointment. MyChart: Please ask the schedulers to give you an activation code. The main way of communication isby Indexing rather than phone lines, so if you have not signed up, please do so. Indexing is also theway that you can review your labs and testing. We are not able to contact everyone to tell them results are normal. If you do not hear back from us regarding testing you have had, it should be considered normal or within normal range. If you have any questions about the results, you are free to message us. Indexing is meant for simple questions regarding medications, possible side effects, or other simplestraight forward questions in limited sentences, rather than multiple paragraphs of discussion. Indexing is not meant for, or efficient for these complex questions, extensive questions, extensive medication adjustments, complex new symptoms or concerns. These issues beyond simple questions require afollow up visit with myself, one of our physician assistants, nurse practitioners, or a Virtual Visit via computer or smart phone, as detailed further down. Refills: Please pay attention to when your refills will need to be renewed. Due to the volume of phone callsdaily, this could potentially take a few days, [...] do not comment on most testing on [facility] in a message or commentary unless there [...] center for syncope, autonomic dysfunction, general neurology, headachecare, neuromuscular disease, and other related conditions, seeing patients from across the world, we do not have the resource of time or staffing to address inquiries for accommodations. As such, we do not provide or complete requests for work accommodations, FMLA, disability, or other such forms. We recommend seeking guidance through your primary care provider for these requests. We are happy toprovide our office notes from your visits and other tests or evaluations performed through our clinic, which can be made available upon request to assist you with this process. documented in this encounterSelect [facility]06-[facility] History of Present illness Narrative* Makayla Jacobs PA-C - 08/01/2023 2:34 PM EDT Images from the original note were not included. Neurology Outpatient Clinic Date: August 01, 2023 Patient Name: Yolande Gomes Referring physician: No referring provider defined for this encounter. Primary physician: [place] [address] [place] [address] Reason for Evaluation: head pain Subjective HPI Yolande Gomes is a 42 year old female with history of hypothyroidism who presents for evaluation of paresthesias and headache. Dr. Isabela Olivera, MARIXA.RODO is the PCP. Chart review: Last saw Dr. Colon on 05/15/23 for migraines, chronic. Supplements and relpax, started TPM 50mg with FU in 2 months. MyChart message on 07/27/23 I just want to inform Isabela of a new indentation on my scalp as of this morning 07/26. I had sensitivity in that area the later part of theweek and some pain and now it is indented. It is located on the right side of my head above my church area. B12 was normal. Patient presents for [...] not effective. Then was seen by Dr. Colon, general neurology, at the end of April. Was started on Topamax 50 mg, magnesium 500 mg and Relpax for abortive relief. Notesthat she has had some moderate benefit in headache reduction since starting these medications. Is now getting 1-2 headaches a month lasting up to 2 days at a time. Does note that the Relpax does helpwith abortive relief as well. However, in early June she began experiencing multiple different symptoms. Notes that she started experiencing pain specifically from the shoulders up, around the scalp. Notes that she felt as if her skin was crawling, paresthesias throughout the scalp and shoulders. States that she was feeling her scalp and noticed new indentations on her scalp itself. [place] these were very tender but also notes all over scalp tenderness. Also reporting some paresthesias in her hands when she wakes up and occasionally in her feet. Describing some pain throughout as well in similar locations. No falls. No otheretiology for onset of symptoms. Has never had any symptoms like this before. Notes that with any man ipulation of her hair or scalp she elicits [...] noted above. Also notes that last week shewas very fatigued, went home early from work and slept for 2 days straight which is very atypical for her. Also notes increased photophobia at baseline. Prior therapies: Prozac TPM Relpax Aldactone Imitrex NSAIDs MG Labs/Imaging B12 is normal Medications: Current Outpatient Medications Medication Sig Dispense Refill SEMAGLUTIDE, WEIGHT LOSS, SUBCUTANEOUS Inject 70 Units subcutaneously one time a week. PUBLIC RELATIONS OFFICER THYROID 30 mg tablet Take 30 mg [...] HPI. Otherwise a 10-point ROS was completed andwas negative. ALLERGIES Allergen Reactions Penicillins Anaphylaxis Past [...] 5/5 Finger Abd 5/5 5/5 Finger Add 5/5 5/5 MUSCLES Lower Extremity RIGHT LEFT Hip Flexion 5/5 5/5 Hip Extension 5/5 5/5 BiFem (Knee Flex) 5/5 5/5 Quads (Knee Ext) 5/5 5/5 Gastroc (Plantflx) 5/5 5/5 TibAnt (Dorsiflx) 5/5 5/5 FlxHLong (Toe Flex) 5/5 5/5 ExtHLong (Toe Ext) 5/5 5/5 Sensory Examination Sensation is intact to vibration and temperature throughout. Negative extinction to double simultaneous stimulation Reflexes Right Left Bicep 2/4 2/4 Tricep 2/4 2/4 BrRad 2/4 2/4 Knee 2/4 2/4 Ankle 2/4 2/4 Morales Response Negative Negative Coordination: finger-to- nose-finger intact bilaterally and hdzw-uw-pxfh intact bilaterally. Gait: Patient's gait is normal, [...] June. Notes that she followed with Dr. Colon at the end of April and was [...] therapy. Patient already has appointment with Dr. Colon scheduled for next week encouraged her to follow-up. Will reach out to Dr. Colon to see if any additional testing or [...] which included preparing to see the patient, gfyh-bm-cruc patient care, completing clinical documentation, obtaining and/or reviewing separately obtained history, performing a medically appropriate examination, and counseling and educating the patient/family/caregiver. Makayla Jacobs PA-C [facility] Neurology This document has been created with the use of voice recognition technology. It may contain inaccuracies: (e.g. misspellings, inaccurate syntax or word sense) that have escaped review. documented in this encounterSelect [facility]05-30-2024 History of Present illness Narrative* Lo Portillo RT(R) - 07/24/2023 11:40 AM EDT Radiology Service Progress Note PATIENT NAME: Yolande Gomes DATE OF SERVICE: July 24, 2023 TIME: 11:34 AM PATIENT IDENTITY VERIFICATION COMPLETED USING TWO (2) IDENTIFIERS: Name and Date of confirmedby patient verbally. FALL SCREENING: Has the patient had 2 falls in the last year or 1 fall with injury or currently using an Ambulatory Assistive Device (Walker, Cane, Wheelchair, Crutches, etc.)? No PATIENT GENDER DATA: Female. status: : No status: NO. PATIENT RELEVANT IMPLANT DATA REVIEWED: Not Applicable PATIENT PRESENTS WITH AN IMPLANTABLE OR ATTACHED ROLLING ATTENDANT: No RADIOLOGY DEPARTMENT: General X-ray: Exam(s) Completed: Spine X-Ray(s): Cervical AP / LAT flex and ext. PERIPHERAL IV DATA: Not applicable SIGNED BY: RT Fidelia(R) July 24, 2023 11:34 AM documented in this encounterSelect [facility]05-28-2024 Instructions* Patient Instructions* Isabela Olivera APRN.CNP - 07/22/2023 5:16 PM EDT Meniere's disease- can cause triad of headaches, vertigo, ear issues. documented in this encounterSelect [facility]05-28-2024 History of Present illness Narrative* Isabela Olivera APRN.CNP - 07/22/2023 4:37 PM EDT Images from the original note were not included. [address] [place] [address] Date of Evaluation: 07/22/2023 Patient Name: Yolande Gomes : 1980 Chief Complaint: Patient presents with: Hair/Scalp Problem: 2 indentations on skull, sensitive to touch Fatigue: Onset 9 months Nursing Intake: There are no exam notes on file for this visit. Subjective Ms. Gomes is a 42 year old female who presents with the following complaint(s): The history is provided by the patient. No site interpreter was used. Yolande is here today to transfer care and with a few complaints. 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 Hx migraines, increasing in frequency since 02/2023: Following with neurology Dr. Colon for migraines. New scalp indentations: Noticed the [...] intolerance. Negative for heat intolerance, polydipsia, polyphagia andpolyuria. Musculoskeletal: Positive for arthralgias, myalgias and neck [...] use: No Current Outpatient Medications Medication Sig PUBLIC RELATIONS OFFICER THYROID 30 mg tablet Take 30 mg [...] the chief complaint, medications, past medical, family andsocial histories obtained by others. Objective BP 114/81 [...] which included preparing to see the patient, gqsf-uk-zcqe patient care, completing clinical documentation, obtaining and/or reviewing separately obtained history, performing a medically appropriate examination, counseling and educating the pat ient/family/caregiver, and ordering medications, tests, or procedures. Isabela Olivera APRN.MANAGER HUMAN RESOURCES No follow-ups on file. Discussed the above with the patient using shared decision making. The patient is in agreement with the diagnostic and treatment plans. documented in this encounterSelect [facility]04-10-2024 Miscellaneous Notes* Telephone Encounter - Marina Davila MA - 06/04/2023 9:17 AM EDT Pharmacy verified in FlowPlay. Patient has been identified by name and [...] 69.9 kg (154 lb) Please advise. Marina Davila MA documented in this encounterSelect [facility]04-01-2024 Miscellaneous Notes* Telephone Encounter - Marina Davila MA - 05/26/2023 10:34 AM EDT Pharmacy verified in FlowPlay. Patient has been identified by name and [...] 69.9 kg (154 lb) Please advise. Marina Davila MA documented in this encounterSelect [facility]03-21-2024 Instructions* Patient Instructions* Crissy Colon MD - 05/15/2023 3:43 PM EDT Acute [...] with anxiety and sleep. Magnesium threonate also haslow risk of gastrointestinal side effects and anecdotally helpful with cognitive function and brainfog symptoms. Magnesium malate has low gastrointestinal side effects and is reportedly more energizing and anecdotally often helpful in fibromyalgia and chronic fatigue syndrome. Magnesium citrate isone of the most studied, popular, and well-absorbed forms of magnesium. It can also be mixed easilywith liquids if you can t take pills. [...] buy supplements cheaper (especially Coenzyme Q10) at www.qLearning or at HITbills. General Headache Instructions: 1) Maintain a headache diary; learn to identify and avoid triggers. 2) Limit use of acute treatments (wiwr-qia-jkomylf medications, triptans, etc.) to no more than [...] Taryn Ankita, Mug/A+W Root Beer, Minute Maid [place], Slice are okay)) -Foods containing nitrates (deli meat, ham, richards, sausage, hot dogs) -Tyramine (aged cheese; can only have Panamanian cheese, cottage cheese, Velveeta and fresh mozarella(most pizza uses aged mozarella)) -MSG (Georgian/ foods, Doritos, all flavored chips and Ramen [...] thus making them worse. Goal is to re-directattention away from headaches, toward daily activities and [...] Naproxen (Aleve), Ibuprofen (Advil, Motrin), Acetaminophen/Caffeine (Excedrin), Acetaminophen/Dichloralphenazone/Isometheptene (Midrin), Aspirin (ok to continue if taking [...] worst offenders. -These include Acetaminophen/Butalbital/Caffeine (Fioricet, Esgic) Acetaminophen/Butalbital/Caffeine/Codeine (Fioricet with Codeine), Aspirin/Butalbital/Caffeine (Fiorinal), Aspirin/Butalbital/Caffeine/Codeine (Fiorinal with Codeine). Vitamins and herbs that [...] Magnesium also demonstrated the benefit in menstrually r elated migraine. Magnesium is part of the messenger [...] Feverfew: Feverfew is a common garden herb [place]ta to [place] and popular in [place] [...] in which complete relief can be expected. Ingeneral, there is no cure for headache, especially migraine based headaches. There is nothing available that completely prevents headaches from occurring, breaking through, or having periodic flare-ups and fluctuations. Regardless of what you are using on a daily basis for prevention, episodic heada ches should still be expected, and periods where frequency may escalate and fluctuate are unavoidable. There is no quick fix for most headaches. Furthermore, the longer you have had high frequency headaches (such as chronic daily headache), the longer it will likely take to expect any improvement. In fact, some people will never improve, regardless of how many medications or other treatments we try.Our treatment strategy is to evaluate for possible causes of your headache, although testing is usually always normal, even in cases of daily continuous headaches for years. Most types of headache such as migraine are electrical brain disorders (similar to how epilepsy is an electrical brain disorders). Therefore, there is no testing that will reveal this dysfunctional electrical circuitry suchon MRI, or other testing. We try to [...] We can not predict if or when exac tly you will respond to a treatment that we provide. Preventive headache medications take 4-6 weeks to start working, and 2-3 months to see full effect,assuming you reach an effective dose. Therefore, calling or messaging frequently because you have aheadache flare prior to the 3 month nahum is unlikely to change anything, and unfortunately there isnothing available that will expedite this, so please try to avoid this. Our recommendation will gene rally be to give it adequate time first. [...] and respond most often through our nursing teamto help relay our message and response back to you. The main way of communication is by At[employer]ind[employer] Powerhart rather than phone lines, so if you have not signed up, please do so. At[employer] Powerhart is also the way that you can review your labs and testing. We are not able to contact everyone to tell them results are normal. If you do not hear back from us regarding testing you have had, it should be considered normal or within normal range. If you have any questions aboutthe results, you are free to message us. MyChart is meant for simple questions regarding medications, possible side effects, or other simplestraight forward questions in limited sentences, rather than multiple paragraphs of discussion. [employer] Powerhart is not meant for, safe, or efficient [...] renewed. Due to the volume of phone callsdaily, this could potentially take a few days, [...] still have pre-approved coverage for your next Botoxappointment in 3 months. If your coverage has run out, and a new prior authorization is required tocontinue Botox treatment, please call our office and let us know so that we can file the paperwork. Telemedicine is the newest virtual visit that we are now offering to allow you to have a jjcz-pj-rsjc conversation with your doctor for 15 minutes (although this can extend further as needed), without the need for driving to our clinic, paying for parking, paying copays, paying for travel, stoppingover for meals, etc. You will need a [...] WEBCAM CONNECTED: 1. Go to the URL: [email or web address] 2. Click on Sign Up and Create a patient account for yourself. 3. Please also follow the links to Test My Computer . 4. Follow the steps suggested, testing your Internet Speed, Webcam, Microphone, Speaker, and your video software. 5. Please make sure your video software is up-to-date. This is a safe, [facility] approved download, and will not harm your computer. ON AN IPHONE, IPAD, OR ANDROID DEVICE: 1. Open up the Zunilda Store or BoxCe and search Select [facility] [employer]. 2. Download and Install the Application. 3. Tap on Sign Up and create a patient account for yourself. 4. Please use an e-mail address that you frequently check, as you will receive an e-mail appointment from [facility] [employer]. documented in this encounter[facility]03-[facility]-2024 History of Present illness Narrative* Crissy Colon MD - 05/15/2023 2:53 PM EDT Images from the original note were not included. [facility] [place] May 15, 2023 Consultation My final recommendations [...] mg by mouth once daily. (Patient not taking:Reported on 05/15/2023) Sulfacetamide Sodium-Sulfur 10-4 % padm [...] commands CRANIAL NERVES: PERRLA, EOM's intact, Visual sung intact to confrontation, Extraocular movements intact, Facial [...] lower risk: Not on file Data from: https://www.neighborhoodatlas.medicine.[email or web address].edu/. Last address used for calculation: [place] file Diagnosis: (G43.101) Migraine with aura and [...] headache is intractable Office Visit on 05/15/23 SHARA Colon MD [facility] [place] Department of Neurology Total time in minutes spent with patient, reviewing records, labs, imaging, formulating plan, and documentin with more than 50% of the time spent in patient education/counselling/coordinating care with the patient and /or family. documented in this encounterSelect [facility], IncDischarge summary Author Mehul Perez [facility] Note Date/Time August 05, 2024 7:17 am [facility] Medical Records Department [address] [place] [address] Emergency Department Summary 08/05/24 MR#: [id number] Acct: [id number] Name: YOLANDE GOMES Rep #:[id number] : 1980 43 From: Mehul Perez MD PCP: Kimberly Kumari PA-C Status:REG E R Location: ED HPI History of Present Illness Chief Complaint: Headache Narrative Narrative: 43-year-old female past medical history of breast carcinoma started a hormone kathleen recently. This may have triggered her migraine headache. She states that yesterday everything was fine but 2:00 this morning, approximately 4 and half hours ago, she developed a migraine headache. It is mainly on the right side of her head but does cross the forehead. She became nauseated and vomited once. She had taken her migraine medication but vomited it up an hour later. She also tried to take ibuprofen and drink a cup of coffee that which usually helps her migraine headaches. She endorses photophobia and phonophobia, but denies any preceding aura or scotoma. No exacerbating or alleviating factors. Currently rates it at 9 out of 10. States she has had to come to the emergency department previously 1 other time where she received a cocktail of medications and IV fluids which helped. [facility] Medical History Breast cancer Contact with or suspected exposure to other viral communicable disease Acute upper respiratory infection Chronic bronchitis with acute exacerbation Pneumonia Acute bronchitis Acute upper respiratory infection Sore throat Acute left otitis media Anxiety Depression PCOS (polycystic ovarian syndrome) History of miscarriage Home Medications ?Medication ?Instructions ?Recorded ?Last Taken ?Type spironolactone 25 mg tablet 50 mg PO DAILY 08/23/22 Un known History semaglutide (weight loss) 1 mg/0.5 1 mg subcut Q7D 04/19 Unknown History mL subcutaneous pen injector levothyroxine 100 mcg tablet 100 mcg PO DAILY 04/19/24 Unknown History fluoxetine 10 mg capsule (Prozac) 10 mg PO QDAY #30 ca ps 06/04/24 Unknown Rx fluoxetine 40 mg capsule (Prozac) 40 mg PO DAILY #90 c aps 06/08/24 Unknown Rx anastrozole 1 mg tablet 1 mg PO DAILY 08/05/24 Unkno wn History eletriptan 40 mg tablet 40 mg PO DAILY 08/05/24 Unkn own History ondansetron HCl 4 mg tablet 4 mg PO Q8H PRN PRN nausea /vomiting 08/05/24 Unknown History Allergy/AdvReac Type Severity Reaction Status Date / Time Penicillins Allergy Anaphylaxis Verified 08/05/24 06:12 Family History Grandfather Cancer lung Grandmother Cancer stomach Aunt Cancer osteo myeloma Surgical History History of bilateral mastectomy S/P tonsillectomy S/P D&C (status post dilation and curettage) Social History household members: significant other housing: house number of children: 0 current occupational status: employed 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 Positive nausea and vomiting, no hematemesis, no recent fevers or chills, no preceding aura. Positive photophobia and phonophobia. EXAM Physical Exam Narrative Exam Narrative: Afebrile. Vital signs noted. Nontoxic-appearing. Cardiovascular examination regular rate and rhythm. Lungs clear to auscultation bilaterally. Abdomen softand nontender without guarding or rebound. Neurological examination nonfocal, nonlateralizing. PERRL, EOMI. Airway patent. Neck soft and supple without meningismus. Moves all extremities. Const Vital Signs: 08/05/24 06:12 Temperature 97.9 F Temperature Source Oral Pulse Rate 87 Respiratory Rate 18 Blood Pressure 148/88 H Blood Pressure Mean 108 Pulse Ox 100 Oxygen Delivery Method Room Air MDM MDM MDM Narrative Medical decision making narrative: I reviewed her prior records, I have not seen prior visits to this ED regarding migrainous type headaches. She is allergic to penicillin. She will be given a bolus of IV fluids as well as Compazine and Benadryl. She states she had already taken ibuprofen without relief. After Compazine and Benadryl, repeat examination at approximately 7:15 AM showedher to be able to ambulate to the bathroom and back. Additionally, she currently rates her headache at 2 or 3, down from a 9. At this point in time, Ifeel she can be discharged safely home with follow-up. She will continue her medications for migraine at home. Additionally, she did not want to necessarilywait for the rest of the IV fluids to finish as she states she feels markedly improved. Return instructions were reviewed. Disposition is discharged home instable condition. History & Record Review Discussion w/independent historian: Patient Additional record(s) reviewed:: Prior ED visit (No specific medications for migraine headache) Discharge Plan Triage Chief Complaint: Headache ED Provider: Mehul Perez Dx/Rx/DC Orders Prescriptions: No Action spironolactone 25 mg tablet 50 mg PO DAILY semaglutide (weight loss) 1 mg/0.5 mL pen injector 1 mg subcut Q7D Patient Comments: SUNDAYS levothyroxine 100 mcg tablet 100 mcg PO DAILY Patient Comments: TAKE 1 TABLET BY MOUTH 5 DAYS OF THE WEEK, SKIP ON 2 DAYS OF THE WEEK (June AND FRIDAY) eletriptan 40 mg tablet 40 mg PO DAILY anastrozole 1 mg tablet 1 mg PO DAILY ondansetron HCl 4 mg tablet 4 mg PO Q8H PRN PRN (Reason: nausea/vomiting) fluoxetine [Prozac] 10 mg capsule 10 mg PO QDAY Qty: 30 12RF fluoxetine [Prozac] 40 mg capsule 40 mg PO DAILY Qty: 90 12RF Primary Care Provider: Kimberly Kumari Referrals: Kimberly Kumari PA-C [Primary Care Provider] - Print Language: Australian What to do if you have Problems For any increased pain, shortness of breath, bleeding, nausea or vomiting, chestpain, or any unexpected problems, contact your Primary Care Provider. Call [facility] ([phone]) or report to the closest Emergency Room. Call 911 if necessary. 08/05/24 0717 <Electronically signed by Mehul Perez MD> Cosigner Signature (if applicable): CC: AVELINO Kumari ~ Signed [facility] Work Phone: Evaluation note* Diagnosis Onset Date Resolution Status PCOS (polycystic ovarian syndrome) acute Encounter for routine gynecological examination noneactive [facility] Work Phone: Evaluation note* Diagnosis Migraine with aura and with status migrainosus, not intractable- Primary Migraine with aura, with intractable migraine, so stated, with status migrainosus [facility] Diagnosis Encounter to establish care- Primary Other reasons for seeking consultation Paresthesia Disturbance of skin sensation Scalp pain Headache Myalgias Cervicalgia Polycystic ovarian disease Polycystic ovaries Hypothyroidism, acquired Unspecified hypothyroidism Chronic fatigue Other malaise and fatigue Thyroid nodule Nontoxic uninodular goiter [facility] Diagnosis Cervicalgia [facility]* Diagnosis 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 and without status migrainosus- Primary Migraine without aura, with intractable migraine, so stated, without mention of status migrainosus Paresthesia of skin Disturbance of skin sensation [facility] Diagnosis Occipital pain- Primary Headache documented in this [facility] Diagnosis Hypothyroidism, acquired- Primary Unspecified hypothyroidism documented [facility] this [facility] Diagnosis Hypothyroidism, acquired- Primary Unspecified hypothyroidism documented [facility] this [facility] Diagnosis APPOINTMENT CANCELLED- Primary documented in this [facility] Diagnosis Hypothyroidism, acquired Unspecified hypothyroidism [facility] Diagnosis Bilateral occipital neuralgia- Primary Other syndromes affecting cervical region [facility] Diagnosis 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 and with status migrainosus- Primary Migraine without aura, with intractable migraine, so stated, with status migrainosus [facility] Diagnosis 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 and with status migrainosus Migraine without aura, with intractable migraine, so stated, with status migrainosus [facility] Diagnosis 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 and with status migrainosus Migraine without aura, with intractable migraine, so stated, with status migrainosus [facility] Diagnosis Sore throat- Primary Acute pharyngitis Viral URI Acute upper respiratory infections of unspecified site Viral URI Acute upper respiratory infections of unspecified site [facility] Diagnosis Viral URI Acute upper respiratory infections of unspecified site [facility] Diagnosis Hypothyroidism, acquired- Primary Unspecified hypothyroidism [facility] Diagnosis Hypothyroidism, acquired Unspecified hypothyroidism [facility] Diagnosis Abnormal finding on radiological examination of breast- Primary Other (abnormal) findings on radiological examination of breast [facility] Diagnosis Breast pain- Primary Mastodynia Bilateral fibrocystic breast changes Nipple discharge Other sign and symptom in breast Abnormal MRI, breast Other (abnormal) findings on radiological examination of breast Breast pain Mastodynia Bilateral fibrocystic breast changes Nipple discharge Other sign and symptom in breast Abnormal MRI, breast Other (abnormal) findings on radiological examination of breast [facility] Breast pain Mastodynia Bilateral fibrocystic breast changes Nipple discharge Other sign and symptom in breast Abnormal MRI, breast Other (abnormal) findings on radiological examination of breast [facility] Diagnosis Abnormal finding on radiology exam Other nonspecific (abnormal) findings on radiological and other examinations of body structure [facility] Diagnosis Abnormal finding on radiology exam Other nonspecific (abnormal) findings on radiological and other examinations of body structure [facility] Diagnosis 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 Pre-op testing Preoperative examination, unspecified documented in this encounter [facility] note* Diagnosis Nipple discharge- Primary Other sign and symptom in breast 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 documented in this encounter [facility] note* Diagnosis Personal history of breast cancer- Primary Personal history of malignant neoplasm of breast documented in this encounter [facility] note* Diagnosis 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 documented in this encounter [facility] note* Diagnosis 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 documented in this encounter [facility] note* Diagnosis 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 Pre-op testing Preoperative examination, unspecified Ductal carcinoma in situ (DCIS) of right breast documented in this encounter [facility] note* Diagnosis 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 Encounter to discuss breast reconstruction Other specified counseling Ductal carcinoma in situ (DCIS) of right breast documented in this encounter [facility] note* Diagnosis Preoperative examination- Primary Preoperative examination, unspecified Hypothyroidism, acquired Unspecified hypothyroidism Bipolar 1 disorder (HCC) Bipolar I disorder, most recent episode (or current) unspecified Anxiety Anxiety state, unspecified Ductal carcinoma in situ (DCIS) of right breast Pre-op testing Preoperative examination, unspecified Migraine without status migrainosus, not intractable, unspecified migraine type * Assessment & Plan Note - Anabel Acevedo APRN.CNP - 06/15/2024 10:42 AM EDT Associated Problem(s): Migraines Controlled with prn use of Relpax. * Assessment & Plan Note - Anabel Acevedo APRN.CNP - 06/15/2024 6:46 AM EDT Associated Problem(s): Anxiety Controlled on Prozac * Assessment & Plan Note - Anabel Acevedo APRN.MANAGER [employer] - 06/15/2024 6:46 AM EDT Associated Problem(s): Hypothyroidism, acquired Controlled on Synthroid documented in this encounter [facility] note* Diagnosis Preoperative examination- Primary Preoperative examination, [...] unspecified documented in this encounter [facility] note* Diagnosis Preoperative examination- Primary Preoperative examination, [...] (HCC) documented in this encounter [facility] note* Diagnosis Preoperative examination- Primary Preoperative examination, [...] breast documented in this encounter [facility] note* Diagnosis Preoperative examination- Primary Preoperative examination, [...] acute postoperative pain documented in this encounter [facility] note* Diagnosis Preoperative examination- Primary Preoperative examination, [...] (HCC) documented in this encounter [facility] note* Diagnosis Preoperative examination- Primary Preoperative examination, [...] (HCC) documented in this encounter [facility] note* Diagnosis Preoperative examination- Primary Preoperative examination, [...] Primary documented in this encounter [facility] note* Diagnosis Preoperative examination- Primary Preoperative examination, unspecified Hypothyroidism, acquired Unspecified hypothyroidism Bipolar 1 disorder (HCC) Bipolar I disorder, most recent episode (or current) unspecified Anxiety Anxiety state, unspecified Ductal carcinoma in situ (DCIS) of right breast Pre-op testing Preoperative examination, unspecified Migraine without status migrainosus, not intractable, unspecified migraine type Malignant neoplasm of breast, stage 1, estrogen receptor positive, unspecified laterality ([facility]) Encounter for screening for malignant neoplasm of cervix Screening for malignant neoplasm of the cervix documented in this encounter [facility] note* Diagnosis Preoperative examination- Primary Preoperative examination, unspecified Hypothyroidism, acquired Unspecified hypothyroidism Bipolar 1 disorder (HCC) Bipolar I disorder, most recent episode (or current) unspecified Anxiety Anxiety state, unspecified Ductal carcinoma in situ (DCIS) of right breast Pre-op testing Preoperative examination, unspecified Migraine without status migrainosus, not intractable, unspecified migraine type Decreased range of motion of right shoulder- Primary Other symptoms referable to shoulder joint Decreased range of motion of left shoulder Breast pain Mastodynia At risk for lymphedema Other specified conditions influencing health status S/P breast reconstruction Breast replaced by other means [facility] Diagnosis Preoperative examination- Primary Preoperative examination, unspecified Hypothyroidism, acquired Unspecified hypothyroidism Bipolar 1 disorder (HCC) Bipolar I disorder, most recent episode (or current) unspecified Anxiety Anxiety state, unspecified Ductal carcinoma in situ (DCIS) of right breast Pre-op testing Preoperative examination, unspecified Migraine without status migrainosus, not intractable, unspecified migraine type Post-operative state- Primary Other postprocedural status documented in this encounter [facility] note* Diagnosis Preoperative examination- Primary Preoperative examination, unspecified Hypothyroidism, acquired Unspecified hypothyroidism Bipolar 1 disorder (HCC) Bipolar I disorder, most recent episode (or current) unspecified Anxiety Anxiety state, unspecified Ductal carcinoma in situ (DCIS) of right breast Pre-op testing Preoperative examination, unspecified Migraine without status migrainosus, not intractable, unspecified migraine type 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 Headaches Nausea Nausea alone Dizziness Dizziness and giddiness Migraine without aura, not intractable, without status migrainosus Family history of stroke Family history of stroke (cerebrovascular) documented [facility] this [facility] Diagnosis Preoperative examination- Primary Preoperative examination, unspecified Hypothyroidism, acquired Unspecified hypothyroidism Bipolar 1 disorder (HCC) Bipolar I disorder, most recent episode (or current) unspecified Anxiety Anxiety state, unspecified Ductal carcinoma in situ (DCIS) of right breast Pre-op testing Preoperative examination, unspecified Migraine without status migrainosus, not intractable, unspecified migraine type Headaches- Primary Nausea Nausea alone Dizziness Dizziness and giddiness documented in this encounter [facility] note* Diagnosis Preoperative examination- Primary Preoperative examination, [...] right breast- Primary [facility] Diagnosis Preoperative examination- Primary Preoperative examination, unspecified Hypothyroidism, acquired Unspecified hypothyroidism Bipolar 1 disorder (HCC) Bipolar I disorder, most recent episode (or current) unspecified Anxiety Anxiety state, unspecified Ductal carcinoma in situ (DCIS) of right breast Pre-op testing Preoperative examination, unspecified Migraine without status migrainosus, not intractable, unspecified migraine type History of breast cancer- Primary Personal history of malignant neoplasm of breast S/P breast reconstruction Breast replaced by other means Encounter for other preprocedural examination History of breast reconstruction Breast replaced by other means History of bilateral mastectomy Acquired absence of breast and nipple Hypoesthesia of skin Disturbance of skin sensation documented in this encounter [facility] note* Diagnosis Preoperative examination- Primary Preoperative examination, unspecified Hypothyroidism, acquired Unspecified hypothyroidism Bipolar 1 disorder (HCC) Bipolar I disorder, most recent episode (or current) unspecified Anxiety Anxiety state, unspecified Ductal carcinoma in situ (DCIS) of right breast Pre-op testing Preoperative examination, unspecified Migraine without status migrainosus, not intractable, unspecified migraine type Drug-induced headache, not elsewhere classified, not intractable- Primary Abnormal uterine bleeding (AUB)- Primary Migraine without status migrainosus, not intractable, unspecified migraine type Ductal carcinoma in situ (DCIS) of right breast documented in this encounter [facility] note* Diagnosis Preoperative examination- Primary Preoperative examination, unspecified Hypothyroidism, acquired Unspecified hypothyroidism Bipolar 1 disorder (HCC) Bipolar I disorder, most recent episode (or current) unspecified Anxiety Anxiety state, unspecified Ductal carcinoma in situ (DCIS) of right breast Pre-op testing Preoperative examination, unspecified Migraine without status migrainosus, not intractable, unspecified migraine type Abnormal uterine bleeding (AUB)- Primary Malignant neoplasm of breast, stage 1, estrogen receptor positive, unspecified laterality (HCC) Ductal carcinoma in situ (DCIS) of right breast examination or test, unconfirmed documented in this encounter [facility] note* Diagnosis Preoperative examination- Primary Preoperative examination, unspecified Hypothyroidism, acquired Unspecified hypothyroidism Bipolar 1 disorder (HCC) Bipolar I disorder, most recent episode (or current) unspecified Anxiety Anxiety state, unspecified Ductal carcinoma in situ (DCIS) of right breast Pre-op testing Preoperative examination, unspecified Migraine without status migrainosus, not intractable, unspecified migraine type Decreased range of motion of right shoulder- Primary Other symptoms referable to shoulder joint Decreased range of motion of left shoulder Breast pain Mastodynia At risk for lymphedema Other specified conditions influencing health status S/P breast reconstruction Breast replaced by other means [facility] Diagnosis Preoperative examination- Primary Preoperative examination, unspecified Hypothyroidism, acquired Unspecified hypothyroidism Bipolar 1 disorder (HCC) Bipolar I disorder, most recent episode (or current) unspecified Anxiety Anxiety state, unspecified Ductal carcinoma in situ (DCIS) of right breast Pre-op testing Preoperative examination, unspecified Migraine without status migrainosus, not intractable, unspecified migraine type Abnormal uterine bleeding (AUB) documented in this encounter [facility] note* Diagnosis Preoperative examination- Primary Preoperative examination, unspecified Hypothyroidism, acquired Unspecified hypothyroidism Bipolar 1 disorder (HCC) Bipolar I disorder, most recent episode (or current) unspecified Anxiety Anxiety state, unspecified Ductal carcinoma in situ (DCIS) of right breast Pre-op testing Preoperative examination, unspecified Migraine without status migrainosus, not intractable, unspecified migraine type Encounter for other preprocedural examination documented in this encounter [facility] note* Diagnosis Preoperative examination- Primary Preoperative examination, unspecified Hypothyroidism, acquired Unspecified hypothyroidism Bipolar 1 disorder (HCC) Bipolar I disorder, most recent episode (or current) unspecified Anxiety Anxiety state, unspecified Ductal carcinoma in situ (DCIS) of right breast Pre-op testing Preoperative examination, unspecified Migraine without status migrainosus, not intractable, unspecified migraine type Encounter for postoperative examination after surgery for malignant neoplasm- Primary Invasive ductal carcinoma of right breast (HCC) documented in this encounter [facility] note* Diagnosis Preoperative examination- Primary Preoperative examination, unspecified Hypothyroidism, acquired Unspecified hypothyroidism Bipolar 1 disorder (HCC) Bipolar I disorder, most recent episode (or current) unspecified Anxiety Anxiety state, unspecified Ductal carcinoma in situ (DCIS) of right breast Pre-op testing Preoperative examination, unspecified Migraine without status migrainosus, not intractable, unspecified migraine type Decreased range of motion of right shoulder- Primary Other symptoms referable to shoulder joint Decreased range of motion of left shoulder Breast pain Mastodynia At risk for lymphedema Other specified conditions influencing health status S/P breast reconstruction Breast replaced by other means documented in this encounter [facility] note* Diagnosis Preoperative examination- Primary Preoperative examination, unspecified Hypothyroidism, acquired Unspecified hypothyroidism Bipolar 1 disorder (HCC) Bipolar I disorder, most recent episode (or current) unspecified Anxiety Anxiety state, unspecified Ductal carcinoma in situ (DCIS) of right breast Pre-op testing Preoperative examination, unspecified Migraine without status migrainosus, not intractable, unspecified migraine type Hypothyroidism, acquired Unspecified hypothyroidism documented in this encounter [facility] note* Diagnosis Preoperative examination- Primary Preoperative examination, unspecified Hypothyroidism, acquired Unspecified hypothyroidism Bipolar 1 disorder (HCC) Bipolar I disorder, most recent episode (or current) unspecified Anxiety Anxiety state, unspecified Ductal carcinoma in situ (DCIS) of right breast Pre-op testing Preoperative examination, unspecified Migraine without status migrainosus, not intractable, unspecified migraine type Malignant neoplasm of breast, stage 1, estrogen receptor positive, unspecified laterality (HCC)- Primary Vaginal dryness Other specified symptom associated with female genital organs Anxiety Anxiety state, unspecified Ductal carcinoma in situ (DCIS) of right breast documented in this encounter [facility] note* Diagnosis Preoperative examination- Primary Preoperative examination, [...] Primary documented in this encounter [facility] note* Diagnosis Preoperative examination- Primary Preoperative examination, unspecified Hypothyroidism, acquired Unspecified hypothyroidism Bipolar 1 disorder (HCC) Bipolar I disorder, most recent episode (or current) unspecified Anxiety Anxiety state, unspecified Ductal carcinoma in situ (DCIS) of right breast Pre-op testing Preoperative examination, unspecified Migraine without status migrainosus, not intractable, unspecified migraine type Malignant neoplasm of breast, stage 1, estrogen receptor positive, unspecified laterality (HCC)- Primary documented in this encounter [facility] note* Diagnosis Preoperative examination- Primary Preoperative examination, unspecified Hypothyroidism, acquired Unspecified hypothyroidism Bipolar 1 disorder (HCC) Bipolar I disorder, most recent episode (or current) unspecified Anxiety Anxiety state, unspecified Ductal carcinoma in situ (DCIS) of right breast Pre-op testing Preoperative examination, unspecified Migraine without status migrainosus, not intractable, unspecified migraine type Routine general medical examination at a health care facility- Primary Polycystic ovarian disease Polycystic ovaries Hypertension, essential Unspecified essential hypertension Hypothyroidism, acquired Unspecified hypothyroidism Thyroid nodule Nontoxic uninodular goiter Invasive ductal carcinoma of breast, right (HCC) Migraine with aura and without status migrainosus, not intractable Migraine with aura, without mention of intractable migraine without mention of status migrainosus 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 and with status migrainosus Migraine without aura, with intractable migraine, so stated, with status migrainosus Screening for depression Special screening examination for viral disease Special screening examination for unspecified viral disease Screening for HIV (human immunodeficiency virus) Special screening examination for other specified viral diseases [facility] Diagnosis Preoperative examination- Primary Preoperative examination, unspecified Hypothyroidism, acquired Unspecified hypothyroidism Bipolar 1 disorder (HCC) Bipolar I disorder, most recent episode (or current) unspecified Anxiety Anxiety state, unspecified Ductal carcinoma in situ (DCIS) of right breast Pre-op testing Preoperative examination, unspecified Migraine without status migrainosus, not intractable, unspecified migraine type Decreased range of motion of right shoulder- Primary Other symptoms referable to shoulder joint Decreased range of motion of left shoulder Breast pain Mastodynia At risk for lymphedema Other specified conditions influencing health status S/P breast reconstruction Breast replaced by other means [facility] this [facility] Diagnosis Preoperative examination- Primary Preoperative examination, unspecified Hypothyroidism, acquired Unspecified hypothyroidism Bipolar 1 disorder (HCC) Bipolar I disorder, most recent episode (or current) unspecified Anxiety Anxiety state, unspecified Ductal carcinoma in situ (DCIS) of right breast Pre-op testing Preoperative examination, unspecified Migraine without status migrainosus, not intractable, unspecified migraine type History of right breast cancer- Primary History of mastectomy, bilateral S/P breast reconstruction Breast replaced by other means Encounter to discuss breast reconstruction Other specified counseling [facility] Additional Instructions Return to the emergency department with fever, increased pain, inability to tolerate oral fluids, new or worsening symptoms.[facility] Work Phone: Reason for referral (narrative)* Diagnostic Procedure Only (Routine) - Pending Review Specialty Diagnoses / Procedures Referred By Jeramie em Referred To Contact XR IMAGING Diagnoses Cervicalgia Procedures XR CERVICAL 2V FLEX/EXT RADEX SPINE CERVICAL 2 OR 3 VIEWS Isabela Olivera APRN.MANAGER [employer] [address] [place] [address] [place] [address] Referral ID Status Reason Start Date Expiration Date Visits Requested Visits Authorized [id number] Pending Review Auto-Generat ed Referral 07/22/2023 08/20/2024 1 1 [facility] for referral (narrative)No reason for referral information availableWPremier [facility] Work Phone: Reason for visit Narrative* Diagnostic Procedure Only (Routine) - Closed Specialty Diagnoses / Procedures Referred By Contac t Referred To Contact XR IMAGING Diagnoses Cervicalgia Procedures XR CERVICAL 2V FLEX/EXT RADEX SPINE CERVICAL 2 OR 3 VIEWS Isabela Olivera APRN.MANAGER [employer] [address] [place] [address] Xr Imaging [id number] Referral ID Status Reason Start Date Expiration Date V isits Requested Visits Authorized [id number] Closed Auto-Generate d Referral 07/22/2023 08/20/2024 1 1 [facility] for visit Narrative* Consult, Test, Treat (Routine) - Closed Specialty Diagnoses / Procedures Referred By Contac t Referred To Contact Anesthesiology Diagnoses Ductal carcinoma in situ (DCIS) of right breast Pre-op testing Procedures CONSULT TO ANESTHESIOLOGY OFFICE/OUTPATIENT [facility] 60 MINUTES Pradeep Taylor MD [address] [place] [id number] Phone: tel: fax: Referral ID Status Reason Start Date Expiration Date V isits Requested Visits Authorized [id number] Closed PCP Requested Referral 06/01/2024 06/01/2025 1 1 [facility] for visit Narrative* [place] Prior Authorization (Routine) - Authorized Specialty Diagnoses / Procedures Referred By Contac t Referred To Contact Diagnoses Ductal carcinoma in situ (DCIS) of right breast Procedures GOSERELIN ACETATE IMPLANT Jaimee Randall MD [address] [place] [address] Phone: tel: fax: Jaimee Randall MD [address] [place] [address] Phone: tel: fax: Referral ID Status Reason Start Date Expiration Date V isits Requested Visits Authorized [id number] Authorized 07/16/2024 09/14/2025 5 5 [facility] Narr[facility]* Diagnostic Procedure Only (Routine) - Closed Specialty Diagnoses / Procedures Referred By Contac t Referred To Contact [facility] Diagnoses Abnormal uterine bleeding (AUB) Procedures PELVIC US WHI US PELVIC NONOBSTETRIC [place] [address] [place] [address] Phone: tel: fax: [address] [address] Referral ID Status Reason Start Date Expiration Date V isits Requested Visits Authorized [id number] Closed Auto-Generate d Referral 08/31/2024 08/25/2025 1 1 [facility] Summary Purpose Family History No Family History Records Found Relationship Condition Age at Onset Recorded Date/T jhoana grandfather Malignant neoplasm Unknown grandmother Malignant neoplasm Unknown aunt Malignant neoplasm Unknown Advance Directives No Advanced Directives Records Found Advance Directive Response Recorded Date/ Time Living Will No December 09 12:43pm Power of Supervisor [employer] No December 09, 2020 12:43pm Advance Directive Response Recorded Date/ Time Living Will No April 19 12:12pm Do you have a Healthcare Power of Supervisor [employer]? No April 19, 2024 12:12pm Do you have a Healthcare Power of Supervisor [employer]? 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 Reason for Visit PCOS (polycystic ova ronny syndrome) Encounter for routine gynecological examination Chief Complaint Admit Date BLOODY NIPPLE DISCHARGE April 13 12:36pm SORE THROAT, COUGH, BODY ACHES April 16, 2024 9:03am COUGH April 19, 2024 11:00am SORE THROAT, HEADACHE, EAR ACHE June 11:35am migraine August 05, 2024 6:11 am Reason for Visit Admit Date Acute upper respiratory infection Februa 2024 9:03am Contact with or suspected ex posure to other viral communicable disease April 16, 2024 9:03am Acute sinusitis July 16, 2024 11:35 am Reason for Referral Specialty Diagnoses / Procedures Referred By Jeramie t Referred To Contact Crissy Colon MD [address] [place] [address] Referral ID Status Reason Start Date Expiration Date V isits Requested Visits Authorized [id number] Pending Review 1 1 Specialty Diagnoses / Procedures Referred By Jeramie t Referred To Contact CT IMAGING Diagnoses 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 and with status migrainosus Procedures CT BRAIN WO IVCON CT HEAD/BRAIN W/O CONTRAST MATERIAL Crissy Colon MD [address] [place] [address] Ct Imaging [place] [address] Referral ID Status Reason Start Date Expiration Date Visits Requested Visits Authorized [id number] New Request Auto-Generat ed Referral 11/28/2023 12/27/2024 1 1 Specialty Diagnoses / Procedures Referred By Jeramie t Referred To Contact Diagnoses 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 and with status migrainosus Crissy Colon MD [address] [place] [address] Referral ID Status Reason Start Date Expiration Date V isits Requested Visits Authorized [id number] Authorized 10/29/2023 11/27/2024 1 1 Referral ID Status Reason Start Date Expiration Date V isits Requested Visits Authorized [id number] Pending Review 11/28/2023 01/27/2024 1 1 Referral ID Status Reason Start Date Expiration Date V isits Requested Visits Authorized [id number] Closed Auto-Generate d Referral 11/28/2023 12/27/2024 1 1 Additional Source Comments INFORMATION SOURCE (unrecogn ized section and content) DATE CREATED AUTHOR 11/06/2019 [facility] DATE CREATED AUTHOR AUTHOR'S ORGANIZ ATION 04/05/2020 [facility] DATE CREATED AUTHOR AUTHOR'S ORGANIZ ATION 04/15/2023 Mitch Bourgeoisran [facility] DATE CREATED AUTHOR AUTHOR'S ORGANIZ ATION 05/24/2024 [facility] DATE CREATED AUTHOR AUTHOR'S ORGANIZ ATION 07/02/2024 [facility] DATE CREATED AUTHOR AUTHOR'S ORGANIZ ATION 08/13/2024 [facility] DATE CREATED AUTHOR AUTHOR'S ORGANIZ ATION 08/22/2024 [facility] DATE CREATED AUTHOR AUTHOR'S ORGANIZ ATION 10/03/2024 [facility] DATE CREATED AUTHOR AUTHOR'S ORGANIZ ATION 10/17/2024 [facility] DATE CREATED AUTHOR AUTHOR'S ORGANIZ ATION 10/23/2024 [facility] Care Teams (unrecognized sec tion and content) Team Status: Active Member Role Status Dates Kimberly CERVANTES PA-C Family Provider Active Kimberly CERVANTES PA-C Primary Care Provider Active Team Status: Inactive Member Role Status Dates Kimberly CERVANTES PA-C Primary Care Provider, Referri ng Provider Active Ghislaine Nova CNM Attending Provider Active Team Status: Inactive Member Role Status Dates ewa CERVANTES PA-C Primary Care Provider Active Ghislaine Nova CNM Attending Provider, Referring Pro vider Active Penal Officer Relationship Specialty Start Date End Date Kimberly Kumari PA-C PCP - General Family Medicine 03/15/19 Penal Officer Relationship Specialty Start Date End Date Kimberly Kumari PA-C PCP - General Family Medicine 03/15/19 Penal Officer Relationship Specialty Start Date End Date Isabela Olivera, MARIXA.MANAGER [employer] [address] [place], [place] [id number] PCP - General Family Medicine 07/22/23 Penal Officer Relationship Specialty Start Date End Date Isabela Olivera APRN.MANAGER [employer] [address] [place], [place] [phone] PCP - General Family Medicine 07/22/23 Penal Officer Relationship Specialty Start Date End Date JarodIsabela beaulieu, TRACK MAN.MANAGER [employer] [address] [place] [address] PCP - General Family Medicine 07/22/23 Penal Officer Relationship Specialty Start Date End Date TacomaIsabela beaulieu, TRACK MAN.MANAGER [employer] [address] [place] [address] PCP - General Family Medicine 07/22/23 Penal Officer Relationship Specialty Start Date End Date TacomaIsabela beaulieu, TRACK MAN.MANAGER [employer] [address] [place] [address] PCP - General Family Medicine 07/22/23 Penal Officer Relationship Specialty Start Date End Date TacomaJoyceIsabela, TRACK MAN.MANAGER [employer] [address] [place] [address] PCP - General Family Medicine 07/22/23 Penal Officer Relationship Specialty Start Date End Date [place]omaIsabela beaulieu, TRACK MAN.MANAGER [employer] [address] [place] [address] PCP - General Family Medicine 07/22/23 Penal Officer Relationship Specialty Start Date End Date TacomaJoyceIsabela, TRACK MAN.MANAGER [employer] [address] [place] [address] PCP - General Family Medicine 07/22/23 Penal Officer Relationship Specialty Start Date End Date JarodIsabela beaulieu, TRACK MAN.MANAGER [employer] [address] [place] [address] PCP - General Family Medicine 07/22/23 Penal Officer Relationship Specialty Start Date End Date TacomaIsabela navarro, TRACK MAN.MANAGER [employer] [address] [place] [address] PCP - General Family Medicine 07/22/23 Penal Officer Relationship Specialty Start Date End Date JarodIsabela beaulieu, TRACK MAN.MANAGER [employer] [address] [place] [address] PCP - General Family Medicine 07/22/23 Penal Officer Relationship Specialty Start Date End Date TacomaIsabela beaulieu, TRACK MAN.MANAGER [employer] [address] [place] [address] PCP - General Family Medicine 07/22/23 Penal Officer Relationship Specialty Start Date End Date JarodIsabela beaulieu, TRACK MAN.MANAGER [employer] [address] [place] [address] PCP - General Family Medicine 07/22/23 Penal Officer Relationship Specialty Start Date End Date TacomaIsabela beaulieu, TRACK MAN.MANAGER [employer] [address] [place] [address] PCP - General Family Medicine 07/22/23 Penal Officer Relationship Specialty Start Date End Date JarodIsabela beaulieu, TRACK MAN.MANAGER [employer] [address] [place] [address] PCP - General Family Medicine 07/22/23 Penal Officer Relationship Specialty Start Date End Date TacomaIsabela beaulieu, TRACK MAN.MANAGER [employer] [address] [place] [address] PCP - General Family Medicine 07/22/23 Penal Officer Relationship Specialty Start Date End Date Isabela Olivera, TRACK MAN.MANAGER [employer] [address] [place] [address] PCP - General Family Medicine 07/22/23 Penal Officer Relationship Specialty Start Date End Date Isabela Olivera, TRACK MAN.MANAGER [employer] [address] [place] [address] PCP - General Family Medicine 07/22/23 Penal Officer Relationship Specialty Start Date End Date Isabela Olivera, TRACK MAN.MANAGER [employer] [address] [place] [address] PCP - General Family Medicine 07/22/23 Penal Officer Relationship Specialty Start Date End Date Isabela Olivera, TRACK MAN.MANAGER [employer] [address] [place] [address] PCP - General Family Medicine 07/22/23 Penal Officer Relationship Specialty Start Date End Date Isabela Olivera, TRACK MAN.MANAGER [employer] [address] [place] [address] PCP - General Family Medicine 07/22/23 Penal Officer Relationship Specialty Start Date End Date Isabela Olivera, TRACK MAN.MANAGER [employer] [address] [place] [address] PCP - General Family Medicine 07/22/23 Penal Officer Relationship Specialty Start Date End Date Isabela Olivera, TRACK MAN.MANAGER [employer] [address] [place] [address] PCP - General Family Medicine 07/22/23 Penal Officer Relationship Specialty Start Date End Date Isabela Olivera, TRACK MAN.MANAGER [employer] [address] [place], [place] [id number] PCP - General Family Medicine 07/22/23 Penal Officer Relationship Specialty Start Date End Date Isabela Olivera, TRACK MAN.MANAGER [employer]OURCES [address] [place], [place] [id number] PCP - General Family Medicine 07/22/23 [place] [address] [place] [address] Hematology/Oncology 06/02/24 Penal Officer Relationship Specialty Start Date End Date Isabela Olivera, TRACK MAN.MANAGER [employer] [address] [place] [address] PCP - General Family Medicine 07/22/23 [place] [address] [place] [address] Hematology/Oncology 06/02/24 Penal Officer Relationship Specialty Start Date End Date Isabela Olivera, TRACK MAN.MANAGER [employer] [address] [place], [place] [id number] PCP - General Family Medicine 07/22/23 [place] [address] [place] [address] Hematology/Oncology 06/02/24 Penal Officer Relationship Specialty Start Date End Date Isabela Olivera, TRACK MAN.MANAGER [employer] [address] [place], [place] [id number] PCP - General Family Medicine 07/22/23 [place] [address] [place] [address] Hematology/Oncology 06/02/24 Penal Officer Relationship Specialty Start Date End Date Isabela Olivera, TRACK MAN.MANAGER [employer] [address] [place], [place] [id number] PCP - General Family Medicine 07/22/23 [place] [address] [place] [address] Hematology/Oncology 06/02/24 Penal Officer Relationship Specialty Start Date End Date Isabela Olivera, TRACK MAN.MANAGER [employer]OURCES [address] [place], [place] [id number] PCP - General Family Medicine 07/22/23 [place] [address] [place] [address] Hematology/Oncology 06/02/24 Penal Officer Relationship Specialty Start Date End Date Isabela Olivera, TRACK MAN.MANAGER [employer]OURCES [address] [place], [place] [id number] PCP - General Family Medicine 07/22/23 [place] [address] [place] [address] Hematology/Oncology 06/02/24 Penal Officer Relationship Specialty Start Date End Date Isabela Olivera, TRACK MAN.MANAGER [employer] [address] [place], [place] [id number] PCP - General Family Medicine 07/22/23 [place] [address] [place] [address] Hematology/Oncology 06/02/24 Penal Officer Relationship Specialty Start Date End Date Isabela Olivera, TRACK MAN.MANAGER [employer] [address] [place], [place] [id number] PCP - General Family Medicine 07/22/23 [place] [address] [place] [address] Hematology/Oncology 06/02/24 Penal Officer Relationship Specialty Start Date End Date Isabela Olivera, TRACK MAN.MANAGER [employer] [address] [place] [address] PCP - General Family Medicine 07/22/23 [place] [address] [place] [address] Hematology/Oncology 06/02/24 Penal Officer Relationship Specialty Start Date End Date Isabela Olivera, TRACK MAN.MANAGER [employer] [address] [place] [address] PCP - General Family Medicine 07/22/23 [place] [address] [place] [address] Hematology/Oncology 06/02/24 Team Status: Active Member Role Status Dates Kimberly CERVANTES PA-C Primary Care Provider Active Team Status: Inactive Member Role Status Dates Kimberly CERVANTES PA-C Primary Care Provider Active Start: April 13, 2024 End: April 13, 2024 DrNic Guzman DO Attending Provider Activ e Start: April 13, 2024 End: April 13, 2024 Dr. Marina Guzman DO Referring Provider Activ e Start: April 13, 2024 End: April 13, 2024 Team Status: Inactive Member Role Status Dates Quoc PA, PA-C Primary Care Provider Active Start: April 16, 2024 End: April 16, 2024 Kimberly Kumari PA, PA-C Referring Provider Active Start: April 16, 2024 End: April 16, 2024 Alex CERVANTES, PA Attending Provider Active Sta rt: April 16, 2024 End: April 16, 2024 Team Status: Inactive Member Role Status Dates Kimberly Kumari PA, PA-C Primary Care Provider Active Start: April 19, 2024 End: April 19, 2024 Dr. Sukhjinder Lopez DO Attending Provider Active Start: April 19, 2024 End: April 19, 2024 Dr. Sukhjinder Lopez DO Emergency Provider Active Start: April 19, 2024 End: April 19, 2024 Team Status: Inactive Member Role Status Dates Kimberly Kumari PA, PA-C Primary Care Provider Active Start: July 16, 2024 End: July 16, 2024 Kimberly Kumari PA, PA-C Referring Provider Active Start: July 16, 2024 End: July 16, 2024 Alex CERVANTES, PA Attending Provider Active Sta rt: July 16, 2024 End: July 16, 2024 Team Status: Inactive Member Role Status Dates Quoc PA, PA-C Primary Care Provider Active Start: August 05, 2024 End: August 05, 2024 Mehul Perez MD Emergency Provider Active Star t: August 05, 2024 End: August 05, 2024 Penal Officer Relationship Specialty Start Date End Date Isabela Olivera, TRACK MAN.MANAGER [employer] [address] [place] [address] PCP - General Family Medicine 07/22/23 [place] [address] [place] [address] Hematology/Oncology 06/02/24 Penal Officer Relationship Specialty Start Date End Date Isabela Olivera, TRACK MAN.MANAGER [employer] [address] [place], [place] [id number] PCP - General Family Medicine 07/22/23 Jaimee Randall MD [address] [phone] Hematology/Oncology 06/02/24 Penal Officer Relationship Specialty Start Date End Date Isabela Olivera, TRACK MAN.MANAGER [employer] [address] [place], [place] [id number] PCP - General Family Medicine 07/22/23 [place] [address] [phone] Hematology/Oncology 06/02/24 Penal Officer Relationship Specialty Start Date End Date Isabela Olivera, TRACK MAN.MANAGER [employer] [address] [place], [place] [id number] PCP - General Family Medicine 07/22/23 [place] [address] [phone] Hematology/Oncology 06/02/24 Penal Officer Relationship Specialty Start Date End Date Isabela Olivera, TRACK MAN.MANAGER [employer] [address] [place], [place] [id number] PCP - General Family Medicine 07/22/23 [place] [address] [place] [address] Hematology/Oncology 06/02/24 Penal Officer Relationship Specialty Start Date End Date Isabela Olivera, TRACK MAN.MANAGER [employer] [address] [place], [place] [id number] PCP - General Family Medicine 07/22/23 [place] [address] [place] [address] Hematology/Oncology 06/02/24 Penal Officer Relationship Specialty Start Date End Date Isabela Olivera, TRACK MAN.MANAGER [employer] [address] [place], [place] [id number] PCP - General Family Medicine 07/22/23 [place] [address] [phone] Hematology/Oncology 06/02/24 Penal Officer Relationship Specialty Start Date End Date Isabela Olivera, TRACK MAN.MANAGER [employer] [address] [place] [address] PCP - General Family Medicine 07/22/23 [place] [address] [address] [phone] Hematology/Oncology 06/02/24 Penal Officer Relationship Specialty Start Date End Date Isabela Olivera, TRACK MAN.MANAGER [employer] [address] [place], [place] [id number] PCP - General Family Medicine 07/22/23 [place] [address] [place] [address] Hematology/Oncology 06/02/24 Mary Roman, RN [address] [place] [address] Specialty Alodize Machine Helper Hematology/Oncology 08/24/24 Penal Officer Relationship Specialty Start Date End Date Isabela Olivera, TRACK MAN.MANAGER [employer] [address] [place], [place] [id number] PCP - General Family Medicine 07/22/23 Jaimee Randall MD [id number] [place] [address] Hematology/Oncology 06/02/24 Mary Roman, PERICO [address] [place] [address] Specialty Alodize Machine Helper Hematology/Oncology 08/24/24 Penal Officer Relationship Specialty Start Date End Date Isabela Olivera, TRACK MAN.MANAGER [employer] [address] [place], [place] [id number] PCP - General Family Medicine 07/22/23 Jaimee Randall MD [id number] [place] [address] Hematology/Oncology 06/02/24 Mary Roman, PERCIO [address] [place] [address] Specialty Alodize Machine Helper Hematology/Oncology 08/24/24 Penal Officer Relationship Specialty Start Date End Date Isabela Olivera, TRACK MAN.MANAGER [employer] [address] [place], [place] [id number] PCP - General Family Medicine 07/22/23 Jaimee Randall MD [id number] [place] [address] Hematology/Oncology 06/02/24 Mary Roman, RN [address] [place] [address] Specialty Alodize Machine Helper Hematology/Oncology 08/24/24 Penal Officer Relationship Specialty Start Date End Date Isabela Olivera, TRACK MAN.MANAGER [employer] [address] [place], [place] [id number] PCP - General Family Medicine 07/22/23 [place] [address] [place] [address] Hematology/Oncology 06/02/24 Mary Roman, PERICO [address] [place] [address] Specialty Alodize Machine Helper Hematology/Oncology 08/24/24 Penal Officer Relationship Specialty Start Date End Date Isabela Olivera, TRACK MAN.MANAGER [employer] [address] [place] [address] PCP - General Family Medicine 07/22/23 [place] [address] [place] [address] Hematology/Oncology 06/02/24 Mary Roman RN [address] [place] [address] Specialty Alodize Machine Helper Hematology/Oncology 08/24/24 Penal Officer Relationship Specialty Start Date End Date Isabela Olivera, TRACK MAN.MANAGER [employer] [address] [place], [place] [id number] PCP - General Family Medicine 07/22/23 [place] [address] [place] [address] Hematology/Oncology 06/02/24 Mary Roman RN [address] [place] [address] Specialty Alodize Machine Helper Hematology/Oncology 08/24/24 Penal Officer Relationship Specialty Start Date End Date Isabela Olivera, TRACK MAN.MANAGER [employer] [address] [place], [place] [id number] PCP - General Family Medicine 07/22/23 [place] [address] [address] [phone] Hematology/Oncology 06/02/24 Mary Roman RN [address] [place] [address] Specialty Alodize Machine Helper Hematology/Oncology 08/24/24 Penal Officer Relationship Specialty Start Date End Date Isabela Olivera, TRACK MAN.MANAGER [employer] [address] [place] [address] PCP - General Family Medicine 07/22/23 [place] [address] [phone] Hematology/Oncology 06/02/24 Mary Roman RN [address] [place] [address] Specialty Alodize Machine Helper Hematology/Oncology 08/24/24 Penal Officer Relationship Specialty Start Date End Date Isabela Olivera, TRACK MAN.MANAGER [employer] [address] [place], [place] [id number] PCP - General Family Medicine 07/22/23 [place] [address] [place] [address] Hematology/Oncology 06/02/24 Mary Roman RN [address] [place] [address] Specialty Alodize Machine Helper Hematology/Oncology 08/24/24 Penal Officer Relationship Specialty Start Date End Date Isabela Olivera, TRACK MAN.MANAGER [employer] [address] [place], [place] [id number] PCP - General Family Medicine 07/22/23 [place] [address] [place] [address] Hematology/Oncology 06/02/24 Mary Roman, RN [address] [place] [address] Specialty Alodize Machine Helper Hematology/Oncology 08/24/24 Penal Officer Relationship Specialty Start Date End Date Isabela Olivera, TRACK MAN.MANAGER [employer] [address] [place] [address] PCP - General Family Medicine 07/22/23 Jaimee Randall MD [id number] [place] [address] Hematology/Oncology 06/02/24 Mary Roman, RN [address] [place] [address] Specialty Alodize Machine Helper Hematology/Oncology 08/24/24 Penal Officer Relationship Specialty Start Date End Date Isabela Olivera, TRACK MAN.MANAGER [employer]OURCES [address] [place] [address] PCP - General Family Medicine 07/22/23 [place] [address] [place] [address] Hematology/Oncology 06/02/24 Mary Roman, RN [address] [place] [address] Specialty Alodize Machine Helper Hematology/Oncology 08/24/24 Penal Officer Relationship Specialty Start Date End Date Isabela Olivera, TRACK MAN.MANAGER [employer]OURCES [address] [place], [place] [id number] PCP - General Family Medicine 07/22/23 [place] [address] [place] [address] Hematology/Oncology 06/02/24 Mary Roman, RN [address] [facility] [place] [address] Specialty Alodize Machine Helper Hematology/Oncology 08/24/24 Penal Officer Relationship Specialty Start Date End Date Isabela Olivera, TRACK MAN.MANAGER [employer]OURCES [address] [place] [address] PCP - General Family Medicine 07/22/23 [place] [address] [place] [address] Hematology/Oncology 06/02/24 Mary Roman, PERICO [address] [facility] [place] [address] Specialty Alodize Machine Helper Hematology/Oncology 08/24/24 Penal Officer Relationship Specialty Start Date End Date Isabela Olivera, TRACK MAN.MANAGER H[employer]OURCES [address] [place] [address] PCP - General Family Medicine 07/22/23 [place] [address] [place] [address] Hematology/Oncology 06/02/24 Mary Roman, RN [address] [place] [address] Specialty Alodize Machine Helper Hematology/Oncology 08/24/24 Penal Officer Relationship Specialty Start Date End Date Isabela Olivera, TRACK MAN.MANAGER H[employer]OURCES [address] [place] [address] PCP - General Family Medicine 07/22/23 [place] [address] [place] [address] Hematology/Oncology 06/02/24 Mary Roman, PERICO [address] [place] [address] Specialty Alodize Machine Helper Hematology/Oncology 08/24/24 Goals (unrecognized section and content) Goals may be documented in a n alternate sectionGoals may be documented in an alternate section Source Comments (unrecognize d section and content) In the event this informatio n is protected by the Federal Confidentiality of Alcohol and Drug Abuse Patient Records regulations: The Federal rules restrict any use of the information to criminally investigate or prosecute any alcohol or drug abuse patient.[facility], IncIn the event this information is protected by the Federal Confidentiality of Alcohol and Drug Abuse Patient Records regulations: The Federal rules restrict any use of the information to criminally investigate or prosecute any alcohol or drug abuse patient.[facility], IncIn the event this information is protected by the Federal Confidentiality of Alcohol and Drug Abuse Patient Records regulations: The Federal rules restrict any use of the information to criminally investigate or prosecute any alcohol or drug abuse patient.[facility], IncIn the event this information is protected by the Federal Confidentiality of Alcohol and Drug Abuse Patient Records regulations: The Federal rules restrict any use of the information to criminally investigate or prosecute any alcohol or drug abuse patient.[facility], IncIn the event this information is protected by the Federal Confidentiality of Alcohol and Drug Abuse Patient Records regulations: The Federal rules restrict any use of the information to criminally investigate or prosecute any alcohol or drug abuse patient.[facility], IncIn the event this information is protected by the Federal Confidentiality of Alcohol and Drug Abuse Patient Records regulations: The Federal rules restrict any use of the information to criminally investigate or prosecute any alcohol or drug abuse patient.[facility], IncIn the event this information is protected by the Federal Confidentiality of Alcohol and Drug Abuse Patient Records regulations: The Federal rules restrict any use of the information to criminally investigate or prosecute any alcohol or drug abuse patient.[facility], IncIn the event this information is protected by the Federal Confidentiality of Alcohol and Drug Abuse Patient Records regulations: The Federal rules restrict any use of the information to criminally investigate or prosecute any alcohol or drug abuse patient.[facility], IncIn the event this information is protected by the Federal Confidentiality of Alcohol and Drug Abuse Patient Records regulations: The Federal rules restrict any use of the information to criminally investigate or prosecute any alcohol or drug abuse patient.[facility], IncIn the event this information is protected by the Federal Confidentiality of Alcohol and Drug Abuse Patient Records regulations: The Federal rules restrict any use of the information to criminally investigate or prosecute any alcohol or drug abuse patient.[facility], IncIn the event this information is protected by the Federal Confidentiality of Alcohol and Drug Abuse Patient Records regulations: The Federal rules restrict any use of the information to criminally investigate or prosecute any alcohol or drug abuse patient.[facility], IncIn the event this information is protected by the Federal Confidentiality of Alcohol and Drug Abuse Patient Records regulations: The Federal rules restrict any use of the information to criminally investigate or prosecute any alcohol or drug abuse patient.[facility], IncIn the event this information is protected by the Federal Confidentiality of Alcohol and Drug Abuse Patient Records regulations: The Federal rules restrict any use of the information to criminally investigate or prosecute any alcohol or drug abuse patient.[facility], IncIn the event this information is protected by the Federal Confidentiality of Alcohol and Drug Abuse Patient Records regulations: The Federal rules restrict any use of the information to criminally investigate or prosecute any alcohol or drug abuse patient.[facility] ClinicIn the event this information is protected by the Federal Confidentiality of Alcohol and Drug Abuse Patient Records regulations: The Federal rules restrict any use of the information to criminally investigate or prosecute any alcohol or drug abuse patient.[facility], IncIn the event this information is protected by the Federal Confidentiality of Alcohol and Drug Abuse Patient Records regulations: The Federal rules restrict any use of the information to criminally investigate or prosecute any alcohol or drug abuse patient.[facility], IncIn the event this information is protected by the Federal Confidentiality of Alcohol and Drug Abuse Patient Records regulations: The Federal rules restrict any use of the information to criminally investigate or prosecute any alcohol or drug abuse patient.[facility], IncIn the event this information is protected by the Federal Confidentiality of Alcohol and Drug Abuse Patient Records regulations: The Federal rules restrict any use of the information to criminally investigate or prosecute any alcohol or drug abuse patient.[facility], IncIn the event this information is protected by the Federal Confidentiality of Alcohol and Drug Abuse Patient Records regulations: The Federal rules restrict any use of the information to criminally investigate or prosecute any alcohol or drug abuse patient.[facility], IncIn the event this information is protected by the Federal Confidentiality of Alcohol and Drug Abuse Patient Records regulations: The Federal rules restrict any use of the information to criminally investigate or prosecute any alcohol or drug abuse patient.[facility], IncIn the event this information is protected by the Federal Confidentiality of Alcohol and Drug Abuse Patient Records regulations: The Federal rules restrict any use of the information to criminally investigate or prosecute any alcohol or drug abuse patient.[facility], IncIn the event this information is protected by the Federal Confidentiality of Alcohol and Drug Abuse Patient Records regulations: The Federal rules restrict any use of the information to criminally investigate or prosecute any alcohol or drug abuse patient.[facility], IncIn the event this information is protected by the Federal Confidentiality of Alcohol and Drug Abuse Patient Records regulations: The Federal rules restrict any use of the information to criminally investigate or prosecute any alcohol or drug abuse patient.[facility], IncIn the event this information is protected by the Federal Confidentiality of Alcohol and Drug Abuse Patient Records regulations: The Federal rules restrict any use of the information to criminally investigate or prosecute any alcohol or drug abuse patient.[facility], IncIn the event this information is protected by the Federal Confidentiality of Alcohol and Drug Abuse Patient Records regulations: The Federal rules restrict any use of the information to criminally investigate or prosecute any alcohol or drug abuse patient.[facility], IncIn the event this information is protected by the Federal Confidentiality of Alcohol and Drug Abuse Patient Records regulations: The Federal rules restrict any use of the information to criminally investigate or prosecute any alcohol or drug abuse patient.[facility], IncIn the event this information is protected by the Federal Confidentiality of Alcohol and Drug Abuse Patient Records regulations: The Federal rules restrict any use of the information to criminally investigate or prosecute any alcohol or drug abuse patient.[facility], IncIn the event this information is protected by the Federal Confidentiality of Alcohol and Drug Abuse Patient Records regulations: The Federal rules restrict any use of the information to criminally investigate or prosecute any alcohol or drug abuse patient.[facility], IncIn the event this information is protected by the Federal Confidentiality of Alcohol and Drug Abuse Patient Records regulations: The Federal rules restrict any use of the information to criminally investigate or prosecute any alcohol or drug abuse patient.[facility], IncIn the event this information is protected by the Federal Confidentiality of Alcohol and Drug Abuse Patient Records regulations: The Federal rules restrict any use of the information to criminally investigate or prosecute any alcohol or drug abuse patient.[facility], IncIn the event this information is protected by the Federal Confidentiality of Alcohol and Drug Abuse Patient Records regulations: The Federal rules restrict any use of the information to criminally investigate or prosecute any alcohol or drug abuse patient.[facility], IncIn the event this information is protected by the Federal Confidentiality of Alcohol and Drug Abuse Patient Records regulations: The Federal rules restrict any use of the information to criminally investigate or prosecute any alcohol or drug abuse patient.[facility], IncIn the event this information is protected by the Federal Confidentiality of Alcohol and Drug Abuse Patient Records regulations: The Federal rules restrict any use of the information to criminally investigate or prosecute any alcohol or drug abuse patient.[facility], IncIn the event this information is protected by the Federal Confidentiality of Alcohol and Drug Abuse Patient Records regulations: The Federal rules restrict any use of the information to criminally investigate or prosecute any alcohol or drug abuse patient.[facility], IncIn the event this information is protected by the Federal Confidentiality of Alcohol and Drug Abuse Patient Records regulations: The Federal rules restrict any use of the information to criminally investigate or prosecute any alcohol or drug abuse patient.[facility], IncIn the event this information is protected by the Federal Confidentiality of Alcohol and Drug Abuse Patient Records regulations: The Federal rules restrict any use of the information to criminally investigate or prosecute any alcohol or drug abuse patient.[facility], IncIn the event this information is protected by the Federal Confidentiality of Alcohol and Drug Abuse Patient Records regulations: The Federal rules restrict any use of the information to criminally investigate or prosecute any alcohol or drug abuse patient.[facility], IncIn the event this information is protected by the Federal Confidentiality of Alcohol and Drug Abuse Patient Records regulations: The Federal rules restrict any use of the information to criminally investigate or prosecute any alcohol or drug abuse patient.[facility], IncIn the event this information is protected by the Federal Confidentiality of Alcohol and Drug Abuse Patient Records regulations: The Federal rules restrict any use of the information to criminally investigate or prosecute any alcohol or drug abuse patient.[facility], IncIn the event this information is protected by the Federal Confidentiality of Alcohol and Drug Abuse Patient Records regulations: The Federal rules restrict any use of the information to criminally investigate or prosecute any alcohol or drug abuse patient.[facility], IncIn the event this information is protected by the Federal Confidentiality of Alcohol and Drug Abuse Patient Records regulations: The Federal rules restrict any use of the information to criminally investigate or prosecute any alcohol or drug abuse patient.[facility], IncIn the event this information is protected by the Federal Confidentiality of Alcohol and Drug Abuse Patient Records regulations: The Federal rules restrict any use of the information to criminally investigate or prosecute any alcohol or drug abuse patient.[facility], IncIn the event this information is protected by the Federal Confidentiality of Alcohol and Drug Abuse Patient Records regulations: The Federal rules restrict any use of the information to criminally investigate or prosecute any alcohol or drug abuse patient.[facility], IncIn the event this information is protected by the Federal Confidentiality of Alcohol and Drug Abuse Patient Records regulations: The Federal rules restrict any use of the information to criminally investigate or prosecute any alcohol or drug abuse patient.[facility], IncIn the event this information is protected by the Federal Confidentiality of Alcohol and Drug Abuse Patient Records regulations: The Federal rules restrict any use of the information to criminally investigate or prosecute any alcohol or drug abuse patient.[facility], IncIn the event this information is protected by the Federal Confidentiality of Alcohol and Drug Abuse Patient Records regulations: The Federal rules restrict any use of the information to criminally investigate or prosecute any alcohol or drug abuse patient.[facility], IncIn the event this information is protected by the Federal Confidentiality of Alcohol and Drug Abuse Patient Records regulations: The Federal rules restrict any use of the information to criminally investigate or prosecute any alcohol or drug abuse patient.[facility], IncIn the event this information is protected by the Federal Confidentiality of Alcohol and Drug Abuse Patient Records regulations: The Federal rules restrict any use of the information to criminally investigate or prosecute any alcohol or drug abuse patient.[facility], IncIn the event this information is protected by the Federal Confidentiality of Alcohol and Drug Abuse Patient Records regulations: The Federal rules restrict any use of the information to criminally investigate or prosecute any alcohol or drug abuse patient.[facility], IncIn the event this information is protected by the Federal Confidentiality of Alcohol and Drug Abuse Patient Records regulations: The Federal rules restrict any use of the information to criminally investigate or prosecute any alcohol or drug abuse patient.[facility], IncIn the event this information is protected by the Federal Confidentiality of Alcohol and Drug Abuse Patient Records regulations: The Federal rules restrict any use of the information to criminally investigate or prosecute any alcohol or drug abuse patient.[facility], IncIn the event this information is protected by the Federal Confidentiality of Alcohol and Drug Abuse Patient Records regulations: The Federal rules restrict any use of the information to criminally investigate or prosecute any alcohol or drug abuse patient.[facility], IncIn the event this information is protected by the Federal Confidentiality of Alcohol and Drug Abuse Patient Records regulations: The Federal rules restrict any use of the information to criminally investigate or prosecute any alcohol or drug abuse patient.[facility], IncIn the event this information is protected by the Federal Confidentiality of Alcohol and Drug Abuse Patient Records regulations: The Federal rules restrict any use of the information to criminally investigate or prosecute any alcohol or drug abuse patient.[facility], IncIn the event this information is protected by the Federal Confidentiality of Alcohol and Drug Abuse Patient Records regulations: The Federal rules restrict any use of the information to criminally investigate or prosecute any alcohol or drug abuse patient.[facility], IncIn the event this information is protected by the Federal Confidentiality of Alcohol and Drug Abuse Patient Records regulations: The Federal rules restrict any use of the information to criminally investigate or prosecute any alcohol or drug abuse patient.[facility], IncIn the event this information is protected by the Federal Confidentiality of Alcohol and Drug Abuse Patient Records regulations: The Federal rules restrict any use of the information to criminally investigate or prosecute any alcohol or drug abuse patient.[facility], IncIn the event this information is protected by the Federal Confidentiality of Alcohol and Drug Abuse Patient Records regulations: The Federal rules restrict any use of the information to criminally investigate or prosecute any alcohol or drug abuse patient.[facility], IncIn the event this information is protected by the Federal Confidentiality of Alcohol and Drug Abuse Patient Records regulations: The Federal rules restrict any use of the information to criminally investigate or prosecute any alcohol or drug abuse patient.[facility], IncIn the event this information is protected by the Federal Confidentiality of Alcohol and Drug Abuse Patient Records regulations: The Federal rules restrict any use of the information to criminally investigate or prosecute any alcohol or drug abuse patient.[facility], IncIn the event this information is protected by the Federal Confidentiality of Alcohol and Drug Abuse Patient Records regulations: The Federal rules restrict any use of the information to criminally investigate or prosecute any alcohol or drug abuse patient.[facility], IncIn the event this information is protected by the Federal Confidentiality of Alcohol and Drug Abuse Patient Records regulations: The Federal rules restrict any use of the information to criminally investigate or prosecute any alcohol or drug abuse patient.[facility], IncIn the event this information is protected by the Federal Confidentiality of Alcohol and Drug Abuse Patient Records regulations: The Federal rules restrict any use of the information to criminally investigate or prosecute any alcohol or drug abuse patient.[facility], IncIn the event this information is protected by the Federal Confidentiality of Alcohol and Drug Abuse Patient Records regulations: The Federal rules restrict any use of the information to criminally investigate or prosecute any alcohol or drug abuse patient.[facility] ClinicIn the event this information is protected by the Federal Confidentiality of Alcohol and Drug Abuse Patient Records regulations: The Federal rules restrict any use of the information to criminally investigate or prosecute any alcohol or drug abuse patient.[facility], IncIn the event this information is protected by the Federal Confidentiality of Alcohol and Drug Abuse Patient Records regulations: The Federal rules restrict any use of the information to criminally investigate or prosecute any alcohol or drug abuse patient.[facility], IncIn the event this information is protected by the Federal Confidentiality of Alcohol and Drug Abuse Patient Records regulations: The Federal rules restrict any use of the information to criminally investigate or prosecute any alcohol or drug abuse patient.[facility], IncIn the event this information is protected by the Federal Confidentiality of Alcohol and Drug Abuse Patient Records regulations: The Federal rules restrict any use of the information to criminally investigate or prosecute any alcohol or drug abuse patient.[facility], IncIn the event this information is protected by the Federal Confidentiality of Alcohol and Drug Abuse Patient Records regulations: The Federal rules restrict any use of the information to criminally investigate or prosecute any alcohol or drug abuse patient.[facility], IncIn the event this information is protected by the Federal Confidentiality of Alcohol and Drug Abuse Patient Records regulations: The Federal rules restrict any use of the information to criminally investigate or prosecute any alcohol or drug abuse patient.[facility], IncIn the event this information is protected by the Federal Confidentiality of Alcohol and Drug Abuse Patient Records regulations: The Federal rules restrict any use of the information to criminally investigate or prosecute any alcohol or drug abuse patient.[facility], IncIn the event this information is protected by the Federal Confidentiality of Alcohol and Drug Abuse Patient Records regulations: The Federal rules restrict any use of the information to criminally investigate or prosecute any alcohol or drug abuse patient.[facility], IncIn the event this information is protected by the Federal Confidentiality of Alcohol and Drug Abuse Patient Records regulations: The Federal rules restrict any use of the information to criminally investigate or prosecute any alcohol or drug abuse patient.[facility], IncIn the event this information is protected by the Federal Confidentiality of Alcohol and Drug Abuse Patient Records regulations: The Federal rules restrict any use of the information to criminally investigate or prosecute any alcohol or drug abuse patient.[facility], IncIn the event this information is protected by the Federal Confidentiality of Alcohol and Drug Abuse Patient Records regulations: The Federal rules restrict any use of the information to criminally investigate or prosecute any alcohol or drug abuse patient.[facility], IncIn the event this information is protected by the Federal Confidentiality of Alcohol and Drug Abuse Patient Records regulations: The Federal rules restrict any use of the information to criminally investigate or prosecute any alcohol or drug abuse patient.[facility], IncIn the event this information is protected by the Federal Confidentiality of Alcohol and Drug Abuse Patient Records regulations: The Federal rules restrict any use of the information to criminally investigate or prosecute any alcohol or drug abuse patient.[facility], IncIn the event this information is protected by the Federal Confidentiality of Alcohol and Drug Abuse Patient Records regulations: The Federal rules restrict any use of the information to criminally investigate or prosecute any alcohol or drug abuse patient.[facility], IncIn the event this information is protected by the Federal Confidentiality of Alcohol and Drug Abuse Patient Records regulations: The Federal rules restrict any use of the information to criminally investigate or prosecute any alcohol or drug abuse patient.[facility], IncIn the event this information is protected by the Federal Confidentiality of Alcohol and Drug Abuse Patient Records regulations: The Federal rules restrict any use of the information to criminally investigate or prosecute any alcohol or drug abuse patient.[facility], IncIn the event this information is protected by the Federal Confidentiality of Alcohol and Drug Abuse Patient Records regulations: The Federal rules restrict any use of the information to criminally investigate or prosecute any alcohol or drug abuse patient.[facility], IncIn the event this information is protected by the Federal Confidentiality of Alcohol and Drug Abuse Patient Records regulations: The Federal rules restrict any use of the information to criminally investigate or prosecute any alcohol or drug abuse patient.[facility], IncIn the event this information is protected by the Federal Confidentiality of Alcohol and Drug Abuse Patient Records regulations: The Federal rules restrict any use of the information to criminally investigate or prosecute any alcohol or drug abuse patient.[facility], IncIn the event this information is protected by the Federal Confidentiality of Alcohol and Drug Abuse Patient Records regulations: The Federal rules restrict any use of the information to criminally investigate or prosecute any alcohol or drug abuse patient.[facility], IncIn the event this information is protected by the Federal Confidentiality of Alcohol and Drug Abuse Patient Records regulations: The Federal rules restrict any use of the information to criminally investigate or prosecute any alcohol or drug abuse patient.[facility], IncIn the event this information is protected by the Federal Confidentiality of Alcohol and Drug Abuse Patient Records regulations: The Federal rules restrict any use of the information to criminally investigate or prosecute any alcohol or drug abuse patient.[facility], IncIn the event this information is protected by the Federal Confidentiality of Alcohol and Drug Abuse Patient Records regulations: The Federal rules restrict any use of the information to criminally investigate or prosecute any alcohol or drug abuse patient.[facility], IncIn the event this information is protected by the Federal Confidentiality of Alcohol and Drug Abuse Patient Records regulations: The Federal rules restrict any use of the information to criminally investigate or prosecute any alcohol or drug abuse patient.[facility], IncIn the event this information is protected by the Federal Confidentiality of Alcohol and Drug Abuse Patient Records regulations: The Federal rules restrict any use of the information to criminally investigate or prosecute any alcohol or drug abuse patient.[facility], IncIn the event this information is protected by the Federal Confidentiality of Alcohol and Drug Abuse Patient Records regulations: The Federal rules restrict any use of the information to criminally investigate or prosecute any alcohol or drug abuse patient.[facility], IncIn the event this information is protected by the Federal Confidentiality of Alcohol and Drug Abuse Patient Records regulations: The Federal rules restrict any use of the information to criminally investigate or prosecute any alcohol or drug abuse patient.[facility], IncIn the event this information is protected by the Federal Confidentiality of Alcohol and Drug Abuse Patient Records regulations: The Federal rules restrict any use of the information to criminally investigate or prosecute any alcohol or drug abuse patient.[facility], IncIn the event this information is protected by the Federal Confidentiality of Alcohol and Drug Abuse Patient Records regulations: The Federal rules restrict any use of the information to criminally investigate or prosecute any alcohol or drug abuse patient.[facility] Reason for Visit (unrecogniz ed section and content) Reason Comments Occupational Therapy Specialty Diagnoses / Procedures Referred By Contact Referred To Contact OCCUPATIONAL THERAPY Diagnoses S/P breast reconstruction Procedures PHYSICAL THERAPY EVALUATION HIGH COMPLEX 45 MINS OCCUPATIONAL THERAPY EVAL HIGH COMPLEX 60 MINS Olga Nieves PA-C [address] [address] Phone: tel:[phone] fax:[phone] [facility] Occupational Therapy [address] [place] [address] Phone: tel: fax: Referral ID Status Reason Start Date Expiration Date Visits Requested Visits Authorized [id number] Authorized PCP Requested Referral Auto-Generate d Referral 02/25/2024 02/23/2025 20 20 Reason Comments OT Progress Note Specialty Diagnoses / Procedures Referred By Contact Referred To Contact OCCUPATIONAL THERAPY Diagnoses S/P breast reconstruction Procedures CONSULT TO BREAST REHAB PROGRAM PHYSICAL THERAPY EVALUATION HIGH COMPLEX 45 MINS OCCUPATIONAL THERAPY EVAL HIGH COMPLEX 60 MINS Olga Nieves PA-C [address] [address] Phone: tel:[phone] fax:[phone] [facility] Occupational Therapy [address] [place] [address] Phone: tel: fax: Reason Comments Consult Specialty Diagnoses / Procedures Referred By Contac t Referred To Contact Marine Steam Fitter Oncology Diagnoses Malignant neoplasm of breast, stage 1, estrogen receptor positive, unspecified laterality (HCC) Procedures CONSULT TO GYNECOLOGIC/ONCOLOGY OFFICE/OUTPATIENT [facility] 60 MINUTES Aysha Roger MD [address], [place] [address] Phone: tel: Referral ID Status Reason Start Date Expiration Date V isits Requested Visits Authorized [id number] Closed PCP Requested Referral Auto-Generated Referral 08/13/2024 11/11/2024 1 1 Reason Comments Consult Specialty Diagnoses / Procedures Referred By Contac t Referred To Contact Radiation Oncology Diagnoses Ductal carcinoma in situ (DCIS) of right breast Procedures RAD/ONC CONSULT OFFICE/OUTPATIENT [facility] 60 MINUTES Pradeep Taylor MD [address] [place] [address] Phone: tel: fax: Referral ID Status Reason Start Date Expiration Date V isits Requested Visits Authorized [id number] Closed PCP Requested Referral 06/01/2024 06/01/2025 1 1 Specialty Diagnoses / Procedures Referred By Contac t Referred To Contact Plastic Surgery Diagnoses Ductal carcinoma in situ (DCIS) of right breast Procedures CONSULT TO PLASTIC SURGERY OFFICE/OUTPATIENT [facility] 60 MINUTES Pradeep Taylor MD [address] [place] [address] Phone: tel: fax: Referral ID Status Reason Start Date Expiration Date V isits Requested Visits Authorized [id number] Closed PCP Requested Referral 05/31/2024 05/31/2025 1 1 Reason Comments Follow Up Occipital pain, nerv e block Specialty Diagnoses / Procedures Referred By Contac t Referred To Contact Neurology / ADULT NEUROLOGY Diagnoses Migraine without aura, not intractable, with status migrainosus Procedures INJECTION AA&/STRD GREATER OCCIPITAL NERVE NERVE BLOCK GREATER OCCIPITAL NERVE BLCK [facility]TR OCCIPITAL RAN [id number] - NERVE BLCK GRTR OCCIPITAL RAN [id number] - NERVE BLOCK GREATER OCCIPITAL 41402 (CPT ) - INJECTION AA&/STRD GREATER OCCIPITAL NERVE Free Text Procedure Description bilateral occipital [place] [id number] [place] [address] [place] [address] [place] [id number] Referral ID Status Reason Start Date Expiration Date Visits Re quested Visits Authorized [id number] Closed 09/18/2023 02/24/2024 1 1 Reason Comments [...] Expiration Date V isits Requested Visits Authorized [id number] New Request 08/12/2023 11/10/2023 99 99 Reason Onset Date Comments Refill Request 10/09/2023 Reason Comments Refill Request Reason Onset Date Comments Refill Request 11/21/2023 Reason Onset Date Comments Refill Request 11/25/2023 Reason Comments Established Patient Reason Comments Radiology CT Specialty Diagnoses / Procedures Referred By Jeramie em Referred To Contact CT IMAGING Diagnoses 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 and with status migrainosus Procedures CT BRAIN WO IVCON CT HEAD/BRAIN W/O CONTRAST MATERIAL Crissy Colon MD [address] [place] [address] Ct Imaging [id number] Referral ID Status Reason Start Date Expiration Date V isits Requested Visits Authorized [id number] Closed Auto-Generate d Referral 11/28/2023 12/27/2024 1 1 Reason Comments Ear Pain right and sore throa t x this am Reason Comments Outside Recommended Biopsy Review Reason Comments Patient Update Reason Comments Hypothyroidism Specialty Diagnoses / Procedures Referred By Contac t Referred To Contact Endocrinology / ENDOCRINOLOGY Diagnoses Thyroid levels Procedures VIDEO SPEC DIRECT SCHED Self Glory Armstrong MD [address] [place] [address] Phone: tel: fax: Referral ID Status Reason Start Date Expiration Date V isits Requested Visits Authorized [id number] Closed Patient Cleared - Qualified 100% FAS 03/29/2024 06/27/2024 99 99 Reason Comments Radio Imaging Study Comments Reason Comments Radiology Mammogram Specialty Diagnoses / Procedures Referred By Contac t Referred To Contact [facility] Diagnoses Breast pain Bilateral fibrocystic breast changes Nipple discharge Abnormal MRI, breast Procedures МАРИЯ DIAG W CONSTANTIN BILATERAL DIGITAL BREAST TOMOSYNTHESIS BILATERAL Lissette Mcleod, TRACK MAN.[employer] [address] [place] [address] Phone: tel: fax: [facility] [address] [place] [address] Referral ID Status Reason Start Date Expiration Date V isits Requested Visits Authorized [id number] Closed Auto-Generate d Referral 05/10/2024 02/23/2025 1 1 Reason Comments Radiology Invasive Breast Procedure Specialty Diagnoses / Procedures Referred By Contac t Referred To Contact [facility] Diagnoses Abnormal finding on radiology exam Procedures US BIOPSY BREAST RIGHT BX BREAST W/DEVICE 1ST LESION ULTRASOUND GUID Radha Kamara MD [address] [place] [address] Phone: tel: fax: [facility] [address] [place] [address] Referral ID Status Reason Start Date Expiration Date V isits Requested Visits Authorized [id number] Closed Auto-Generate d Referral 05/27/2024 02/23/2025 1 1 Reason Comments Results Reason Comments Radiology MRI Specialty Diagnoses / Procedures Referred By Contac t Referred To Contact [facility] Diagnoses Abnormal finding on radiology exam Procedures MRI BREAST BX WO/W IVCON RIGHT BX BREAST W/DEVICE 1ST LESION MAGNETIC RES GUID Radha Kamara MD [address] [place] [address] Phone: tel: fax: [facility] [place] [address] Referral ID Status Reason Start Date Expiration Date V isits Requested Visits Authorized [id number] Closed Auto-Generate d Referral 05/27/2024 02/23/2025 1 1 Reason Comments Results Appointment Reason Comments Pre-Op Teaching Reason Comments Breast Cancer Reason Comments PHOTOS TAKEN Reason Comments Radiology NM Reason Comments Established Patient Reason Comments Returning Patient's Call Reason Comments Post Op Specialty Diagnoses / Procedures Referred By Contac t Referred To Contact Gynecology Diagnoses Malignant neoplasm of breast, stage 1, estrogen receptor positive, unspecified laterality (HCC) Procedures CONSULT TO GYNECOLOGY OFFICE/OUTPATIENT [facility] 60 MINUTES Jaimee Randall MD [address] [place] [address] Phone: tel: fax: Referral ID Status Reason Start Date Expiration Date V isits Requested Visits Authorized [id number] Closed PCP Requested Referral Auto-Generated Referral 07/13/2024 07/13/2025 1 1 Reason Comments OT EVAL Specialty Diagnoses / Procedures Referred By Contac t Referred To Contact [facility] Diagnoses S/P breast reconstruction Procedures CONSULT TO BREAST REHAB PROGRAM PHYSICAL THERAPY EVALUATION HIGH COMPLEX 45 MINS OCCUPATIONAL THERAPY EVAL HIGH COMPLEX 60 MINS Olga Nieves PA-C [address] [address] Phone: tel: fax: [facility] [place] [address] Reason Comments Post Op 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 Reason Comments Established Patient Reason Comments Follow Up For breast reconstru ction Post Op Reason Comments Radiology CT Specialty Diagnoses / Procedures Referred By Contac t Referred To Contact CT IMAGING Diagnoses Encounter for other preprocedural examination Procedures CTA PELVIS W IVCON CT ANGIOGRAPHY PELVIS W/CONTRAST/NONCONTRAST Isiah Messina, MD [address] [place] [address] Phone: tel: fax: [place] [address] Referral ID Status Reason Start Date Expiration Date V isits Requested Visits Authorized [id number] Closed Auto-Generate d Referral 09/01/2024 02/23/2025 1 1 Reason Comments Appointment Reason Comments Established Patient Reason Comments Yearly Exam Reason Comments Follow Up FOR RECORDS PERTAINING TO PATIENTS WHO ARE [...] BE BASED ON THE PRIMARY CLINICAL RECORDS. [employer] provides no warranty or guarantee of the accuracy or completeness of information in this document.
[2024-10-24 08:26] VITALS: BP 132/74; PULSE 79; RESP 16; TEMP 36.6; O2SAT 99
== END 2024-10-24 08:26 | disposition home or self-care (01) ==
PROVIDERS: Emergency Provider Student in an Organized Health Care Education/Training Program; PCP Nurse Practitioner Family; Visit Provider Student in an Organized Health Care Education/Training Program
DX: G43.909 Migraine, unspecified, not intractable, without status migrainosus (principal); F41.9 Anxiety disorder, unspecified; F32.A Depression, unspecified; Z79.899 Other long term (current) drug therapy
CPT/HCPCS: 96361; 96374; 96375; 99284; A4216